=== PATIENT | male | born 1950 | race Caucasian/White ===

== ENCOUNTER 2016-02-15 00:28 | Inpatient (IN) | payer OTHER, MEDICAID ==
[~2016-02-15] VITALS: Ht 180.3 cm; Wt 82.8 kg
[2016-02-15] VITALS (36 sets, daily range): BP systolic 120–249; BP diastolic 57–130; PULSE 45–107; RESP 12–25; TEMP 95.9–99.9; O2SAT 98–100
[2016-02-15] MEDS ORDERED: SODIUM CHLOR 0.9% 1000 ML INJ 1,000 ML IV SCH (00:43)
[2016-02-15] MEDS ORDERED: SODIUM CHLORIDE 0.9% FLUSH 5 ML FLUSH IVF PRN ×3 (00:45→04:00)
[2016-02-15] MEDS ORDERED: PROMETHAZINE INJ 25 MG/ML VIAL IM ONE (00:45)
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
[2016-02-15 02:18] LABS: AUTOMATED NEUTROPHIL # 10.7 TH/MM3 (1.8-7.7); BASOPHIL % 0.2 % (0.0-2.0); EOSINOPHIL % 0.3 % (0.0-4.0); HEMATOCRIT 45.7 % (39.0-51.0); HEMO FLAGS DIFF FINAL; LYMPH % 24.5 % (9.0-44.0); LYMPHOCYTE # 3.8 TH/MM3 (1.0-4.8); MEAN CELL VOLUME 94.2 FL (80.0-100.0); MEAN CORPUSCULAR HEMOGLOBIN 32.4 PG (27.0-34.0); MEAN CORPUSCULAR HGB CONC 34.4 % (32.0-36.0); MONO % 6.1 % (0.0-8.0); NEUT % 68.9 % (16.0-70.0); PLATELET COUNT 361 TH/MM3 (150-450); RED BLOOD COUNT 4.85 MIL/MM3 (4.50-5.90); RED CELL DISTRIBUTION WIDTH 13.4 % (11.6-17.2); WHITE BLOOD COUNT 15.4 TH/MM3 (4.0-11.0)
[2016-02-15] MEDS ORDERED: ROCURONIUM INJ 100 MG/10 ML VIAL ONE (02:22)
[2016-02-15 02:24] LABS: APTT (PATIENT) 26.6 SEC (22.6-28.8)
[2016-02-15] MEDS ORDERED: PROPOFOL 1000 MG/100 ML INJ 100 ML ONE (02:25)
[2016-02-15] MEDS ORDERED: MANNITOL 12.5 GM/50 ML VIAL IV ONE (02:30)
[2016-02-15] MEDS ORDERED: ROCURONIUM INJ 50 MG/5 ML VIAL IV ONE (02:30)
[2016-02-15] MEDS ORDERED: ETOMIDATE 20 MG/10 ML VIAL IV PUSH ONE (02:30)
[2016-02-15 02:36] LABS: ALKALINE PHOSPHATASE 90 U/L (45-117); TOTAL BILIRUBIN ADULT 0.4 MG/DL (0.2-1.0)
[2016-02-15 02:45] LABS: CREATINE KINASE 85 U/L (39-308)
[2016-02-15] MEDS ORDERED: PROPOFOL 1000 MG/100 ML INJ 100 ML IV SCH (02:45)
[2016-02-15 02:49] LABS: ALT (GPT) 23 U/L (12-78); ANION GAP 14 MEQ/L (5-15); AST (GOT) 26 U/L (15-37); BICARBONATE 20.5 MEQ/L (21.0-32.0); BLOOD UREA NITROGEN 8 MG/DL (7-18); CHLORIDE 105 MEQ/L (98-107); GLOMERULAR FILTRATION RATE 72 ML/MIN (>89); MAGNESIUM 1.9 MG/DL (1.5-2.5); POTASSIUM 3.5 MEQ/L (3.5-5.1); SODIUM (NA) 139 MEQ/L (136-145)
[2016-02-15] MEDS ORDERED: HYDROmorphone HCL PF 1 MG/ML VIAL IV PUSH ONE (03:00)
[2016-02-15 03:06] LABS: BLOOD GAS BASE EXCESS -7.2 mmol/L (-2-2); BLOOD GAS CARBOXYHEMOGLOBIN 1.3 % (0-4); BLOOD GAS HCO3 18 mmol/L (22-26); BLOOD GAS O2 HGB SATURATION 96 % (90-100); BLOOD GAS OXYGEN CONTENT 23.4 Vol % (12.0-20.0); BLOOD GAS PCO2 35 mmHg (38-42); BLOOD GAS PO2 251 mmHG (61-120); CRITICAL VALUE NO; DRAW SITE LT BRACHIAL; FIO2 60 %; NUMBER OF ARTERIAL PUNCTURES 1; OXYGEN DEVICE VENTILATOR; TEMP CORR TO 98.6; VENT SETTINGS AC600/16/PEEP5
[2016-02-15 03:07] LABS: STAT YES
[2016-02-15 03:22] LABS: AMPHETAMINE, URINE NEG (NEG); BARBITURATES, URINE NEG (NEG); COCAINE, URINE NEG (NEG)
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
[2016-02-15] MEDS ORDERED: CLEVIDIPINE INJ 50 ML IV SCH (03:45)
[2016-02-15] MEDS ORDERED: hydrALAZINE HCL 20 MG/ML VIAL ONE (03:56)
[2016-02-15] MEDS: RESP: ALBUTEROL 2.5 MG/IPRATROPIUM 0.5 MG NEB (SCH) INH ×6 (04:00→23:54)
[2016-02-15] MEDS ORDERED: MISCELLANEOUS NURSING INFORMATION XX SCH (04:00)
[2016-02-15] MEDS ORDERED: CHLORHEXIDINE GLUCONATE 2 % 1 PACK (2 CLOTHS) TOP PRN (04:00)
[2016-02-15] MEDS ORDERED: hydrALAZINE HCL 20 MG/ML VIAL IV PUSH ONE (04:00)
[2016-02-15] MEDS ORDERED: METOPROLOL TARTRATE 5 MG/5 ML VIAL IV PUSH PRN (04:15)
[2016-02-15] MEDS: SODIUM CHLOR 0.9% 1000 ML INJ 1,000 ML IV SCH ×4 (04:35→17:07)
[2016-02-15] MEDS: PROPOFOL 1000 MG/100 ML INJ 100 ML IV SCH ×3 (06:00→17:12)
[2016-02-15] MEDS: fentaNYL DRIP 250 ML IV SCH ×2 (06:00→15:44)
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
[2016-02-15] MEDS: MANNITOL 12.5 GM/50 ML VIAL IV SCH ×3 (07:00→18:45)
[2016-02-15] MEDS: niCARdipine INJ 25 MG in SODIUM CHLOR 0.9% 250 ML INJ 250 ML IV SCH ×2 (07:25→12:15)
[2016-02-15] MEDS: SODIUM CHLORIDE 0.9% FLUSH 5 ML FLUSH IVF SCH (07:26)
[2016-02-15] MEDS: PANTOPRAZOLE SODIUM 40 MG VIAL IV SCH (07:26)
[2016-02-15] MEDS: CHLORHEXIDINE 0.12% (ORAL KIT) 15 ML CUP MT SCH ×2 (07:26→20:10)
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
[2016-02-15] MEDS ORDERED: VECURONIUM BROMIDE 20 MG VIAL IV PUSH ONE (10:45)
[2016-02-15] MEDS: MIDAZOLAM 100 MG/ML INJ 100 ML IV SCH ×2 (12:12→17:07)
[2016-02-15] MEDS ORDERED: VECURONIUM BROMIDE 10 MG VIAL ONE (13:07)
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
[2016-02-15] MEDS ORDERED: ceFAZolin 2 GM PREMIX 50 ML IV ONE (13:45)
[2016-02-15] MEDS ORDERED: VANCOMYCIN INJ 1,000 MG in SODIUM CHLOR 0.9% 250 ML INJ 250 ML IV ONE (13:45)
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
[2016-02-15 14:46] LABS: GROSS BLOOD TUBE #1 4+ (0); SUPERNATE COLOR TUBE #1 CLEAR (CLEAR); VOLUME TUBE # 1 3.5 ML; WBC TUBE #1 231 /MM3 (0-10)
--- NOTE | 2016-02-15 14:48 | RADRPT ---
EXAM DATE/TIME: 02/15/2016 14:23 [facility] COMPARISON: CHEST SINGLE AP, February 15, 2016, 4:27. INDICATIONS : Central line placement. MEDICAL HISTORY : None. SURGICAL HISTORY : None. ENCOUNTER: Subsequent ACUITY: 1 day PAIN SCORE: Non-responsive. LOCATION: Bilateral chest FINDINGS: A left sided central line has been placed. The central line appears to be in good position. There is no pneumothorax. The ET tube and NG tube remain in place. The lung gaxiola are stable. CONCLUSION: Left central line in place. No pneumothorax. Alli Jj MD on February 15, 2016 at 14:44 Board Certified Radiologist. This report was verified electronically.
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
[2016-02-15 16:42] LABS: CSF LYMPHOCYTES 19 %; CSF MONOCYTES 3 %; CSF NEUTROPHILS 78 %
[2016-02-15 17:04] LABS: BLOOD GAS BASE EXCESS -3.2 mmol/L (-2-2); BLOOD GAS HCO3 21 mmol/L (22-26); BLOOD GAS O2 HGB SATURATION 97 % (90-100); BLOOD GAS OXYGEN CONTENT 19.6 Vol % (12.0-20.0); BLOOD GAS PCO2 39 mmHg (38-42); BLOOD GAS PO2 142 mmHg (61-120); BLOOD GAS TOTAL HGB 14.2 G/DL (12.0-16.0); CRITICAL VALUE NO; OXYGEN DEVICE VENTILATOR; TEMP CORR TO 98.6
[2016-02-15 17:05] LABS: DRAW SITE ART LINE; FIO2 40 %; STAT NO; VENT SETTINGS 550/16/5 PEEP
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
[2016-02-15] MEDS ORDERED: CHLORHEXIDINE GLUCONATE 4% SOLN 120 ML BTL TOP SCH (21:00)
[2016-02-16] VITALS (15 sets, daily range): BP systolic 119–148; BP diastolic 57–71; PULSE 83–92; RESP 18; TEMP 98.2–100.2; O2SAT 96–100
[2016-02-16] MEDS: MANNITOL 12.5 GM/50 ML VIAL IV SCH ×5 (00:16→23:52)
[2016-02-16] MEDS: PROPOFOL 1000 MG/100 ML INJ 100 ML IV SCH ×4 (00:37→16:54)
[2016-02-16] MEDS: fentaNYL DRIP 250 ML IV SCH ×2 (00:51→16:54)
[2016-02-16] MEDS: RESP: ALBUTEROL 2.5 MG/IPRATROPIUM 0.5 MG NEB (SCH) INH ×5 (03:53→20:24)
[2016-02-16] MEDS: CHLORHEXIDINE GLUCONATE 2 % 1 PACK (2 CLOTHS) TOP SCH (04:00)
[2016-02-16 04:16] LABS: AUTOMATED NEUTROPHIL # 7.6 TH/MM3 (1.8-7.7); BASOPHIL % 0.2 % (0.0-2.0); HEMATOCRIT 37.8 % (39.0-51.0); HEMO FLAGS DIFF FINAL; LYMPH % 11.5 % (9.0-44.0); LYMPHOCYTE # 1.2 TH/MM3 (1.0-4.8); MEAN CORPUSCULAR HEMOGLOBIN 31.9 PG (27.0-34.0); MEAN CORPUSCULAR HGB CONC 33.6 % (32.0-36.0); MONO % 15.5 % (0.0-8.0); NEUT % 72.8 % (16.0-70.0); PLATELET COUNT 268 TH/MM3 (150-450); RED BLOOD COUNT 3.98 MIL/MM3 (4.50-5.90); RED CELL DISTRIBUTION WIDTH 13.7 % (11.6-17.2); WHITE BLOOD COUNT 10.4 TH/MM3 (4.0-11.0)
[2016-02-16] MEDS ORDERED: IOHEXOL 350 MG/ML 10 ML VIAL (for RAD DIAG) IV ONE (04:31)
[2016-02-16 04:37] LABS: ALKALINE PHOSPHATASE 82 U/L (45-117); ALT (GPT) 16 U/L (12-78); ANION GAP 9 MEQ/L (5-15); AST (GOT) 14 U/L (15-37); BLOOD UREA NITROGEN 14 MG/DL (7-18); CHLORIDE 106 MEQ/L (98-107); GLOMERULAR FILTRATION RATE 86 ML/MIN (>89); MAGNESIUM 1.8 MG/DL (1.5-2.5); POTASSIUM 4.1 MEQ/L (3.5-5.1); SODIUM (NA) 139 MEQ/L (136-145); TOTAL BILIRUBIN ADULT 0.7 MG/DL (0.2-1.0)
--- NOTE | 2016-02-16 05:21 | RADRPT ---
EXAM DATE/TIME: 02/16/2016 04:31 [facility] COMPARISON: CT BRAIN W/O CONTRAST, February 15, 2016, 9:35. INDICATIONS : Evaluate status of bleed. RADIATION DOSE: 36.40 CTDIvol (mGy) MEDICAL HISTORY : None SURGICAL HISTORY : None. ENCOUNTER: Initial ACUITY: 1 day PAIN SCALE: 0/10 LOCATION: cranial TECHNIQUE: Multiple contiguous axial images were obtained of the head. Using automated exposure control and adj ustment of the mA and/or kV according to patient size, radiation dose was kept as low as reasonably a chievable to obtain optimal diagnostic quality images. FINDINGS: There is stable areas of hemorrhage. There is a 3.5 x 3.4 cm area of parenchymal hemorrhage in the ri ght cerebellar hemisphere unchanged. There is extensive extra-axial hemorrhage in the left frontal an d left temporal regions unchanged. There is significant subarachnoid hemorrhage throughout the left side unchanged. Right frontal ventriculostomy catheter placed with its tip in the left anterior horn. No evidenc e of hydrocephalus. Persistent hemorrhage in the right sphenoid sinus. Stable right-sided occipital fracture without displacement. Tiny amount of pneumocephalus presen t. CONCLUSION: Stable appearance of the head CT with extensive intra-axial and extra-axial hemorrhage similar amount and distribution to the exam. Mukesh Samano MD on February 16, 2016 at 5:14 Board Certified Radiologist. This report was verified electronically.
[2016-02-16] MEDS: MIDAZOLAM 100 MG/ML INJ 100 ML IV SCH ×2 (05:39→16:54)
[2016-02-16] MEDS: SODIUM CHLOR 0.9% 1000 ML INJ 1,000 ML IV SCH ×2 (06:38→08:57)
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
[2016-02-16] MEDS ORDERED: LIDOCAINE 1%/EPINEPHrine 1:100,000 SOLN 30 ML VIAL ONE (07:16)
[2016-02-16] MEDS ORDERED: levETIRAcetam 500MG PREMIX INJ 100 ML IV ONE (07:17)
[2016-02-16] MEDS ORDERED: GELFOAM SIZE 100 ONE ×2 (07:17→11:08)
[2016-02-16] MEDS ORDERED: THROMBIN (TOPICAL) 5,000 UNIT VIAL ONE ×2 (07:17→09:49)
[2016-02-16] MEDS ORDERED: FUROSEMIDE 40 MG/4 ML VIAL ONE (07:17)
[2016-02-16] MEDS ORDERED: GENTAMICIN SULFATE 80 MG/2 ML VIAL ONE (07:18)
[2016-02-16] MEDS ORDERED: SODIUM CHLOR 0.9% 250 ML INJ 250 ML ONE (07:18)
[2016-02-16] MEDS ORDERED: BACITRACIN TOP OINT 15 GM TUBE ONE (07:18)
[2016-02-16] MEDS: ceFAZolin 2 GM PREMIX 50 ML IV SCH ×4 (07:40→23:53)
[2016-02-16] MEDS: PANTOPRAZOLE SODIUM 40 MG VIAL IV SCH (07:40)
[2016-02-16] MEDS ORDERED: VANCOMYCIN HCL 1000 MG VIAL ONE (07:40)
[2016-02-16] MEDS: CHLORHEXIDINE 0.12% (ORAL KIT) 15 ML CUP MT SCH ×2 (07:41→21:06)
[2016-02-16] MEDS: VANCOMYCIN HCL 1000 MG ON-CALL/NS 250 ML IV SCH ×4 (07:41→08:42)
--- NOTE | 2016-02-16 08:01 | EKG ---
Date Performed: 02/15/2016 Time Performed: 03:13:06 PTAGE: 65 years EKG: Sinus rhythm Anterior infarct - age undetermined Lateral ST changes are nonspecific Abnormal ECG NO PREVIOUS TRACING DOCTOR: Gail Pelayo Interpretating Date/Time 02/16/2016 07:58:25
[2016-02-16] MEDS: SODIUM CHLORIDE 0.9% FLUSH 5 ML FLUSH IVF SCH ×2 (08:57→21:00)
[2016-02-16 09:28] LABS: BLOOD GAS BASE EXCESS -1.6 mmol/L (-2-2); BLOOD GAS CARBOXYHEMOGLOBIN 1.3 % (0-4); BLOOD GAS HCO3 22 mmol/L (22-26); BLOOD GAS O2 HGB SATURATION 97 % (90-100); BLOOD GAS OXYGEN CONTENT 19.3 Vol % (12.0-20.0); BLOOD GAS PCO2 31 mmHg (38-42); BLOOD GAS PO2 179 mmHg (61-120); BLOOD GAS TOTAL HGB 13.9 G/DL (12.0-16.0); CRITICAL VALUE NO; DRAW SITE ART LINE; FIO2 50 %; OXYGEN DEVICE VENTILATOR; STAT YES; TEMP CORR TO 98.6; ULNAR PULSE PRESENT; VENT SETTINGS OR
--- NOTE | 2016-02-16 10:16 | RADRPT ---
EXAM DATE/TIME: 02/16/2016 04:31 [facility] COMPARISON: CT BRAIN W/O CONTRAST, February 16, 2016, 4:31. INDICATIONS : Known bleed, evaluate for anyerusm IV CONTRAST: 71 cc Omnipaque 350 (iohexol) IV RADIATION DOSE: 60.24 CTDIvol (mGy) MEDICAL HISTORY : None SURGICAL HISTORY : None. ENCOUNTER: Initial ACUITY: 1 day PAIN SCALE: 0/10 LOCATION: cranial TECHNIQUE: Volumetric scanning was performed using a multi-row detector CT scanner. The data was post processed with a variety of visualization algorithms including full volume maximum intensity projection, multi -planar sliding thin slab reformation, curved planar reformation, and surface rendering techniques. Using automated exposure control and adjustment of the mA and/or kV according to patient size, radiat ion dose was kept as low as reasonably achievable to obtain optimal diagnostic quality images. FINDINGS: Patient has a large right cerebellar hemorrhage. There is excellent visualization of vertebrobasilar arteries. Other than mass effect there is no sara dence for aneurysm or major branch vessel occlusion. Supratentorial vessels appear somewhat small without occlusion, aneurysm or vascular displacement. There is better visualization of the vessels in the right hemisphere than the left in the supratentor ial brain. Etiology of this finding is not apparent. CONCLUSION: I do not see an etiology for the patient's cerebellar hemorrhage on the right. Small supratentorial vessels in a 65-year-old. Etiology of this finding is not apparent. Trace subdural blood and subarachnoid blood persist over both convexities. Earl Gaitan MD FACR on February 16, 2016 at 8:59 Board Certified Radiologist. This report was verified electronically.
[2016-02-16 11:30] LABS: BLOOD GAS BASE EXCESS -1.5 mmol/L (-2-2); BLOOD GAS CARBOXYHEMOGLOBIN 1.5 % (0-4); BLOOD GAS HCO3 22 mmol/L (22-26); BLOOD GAS METHEMOGLOBIN 1.1 % (0-2); BLOOD GAS O2 HGB SATURATION 97 % (90-100); BLOOD GAS PCO2 31 mmHg (38-42); BLOOD GAS PO2 188 mmHg (61-120); BLOOD GAS TOTAL HGB 11.4 G/DL (12.0-16.0); TEMP CORR TO 98.6
[2016-02-16 11:31] LABS: CRITICAL VALUE NO; DRAW SITE ART LINE; FIO2 50 %; OXYGEN DEVICE VENTILATOR; STAT YES
[2016-02-16] MEDS ORDERED: MORPHINE SULFATE 4 MG/ML INJ IV PUSH PRN (11:45)
[2016-02-16] MEDS ORDERED: MAGNESIUM SULFATE INJ 4 GM in SODIUM CHLORIDE 0.9% INJ 100 ML IV PRN (11:45)
[2016-02-16] MEDS ORDERED: ACETAMINOPHEN/HYDROcodone 325 MG/10 MG TAB PO PRN (11:45)
[2016-02-16] MEDS ORDERED: ONDANSETRON HCL 4 MG/2 ML VIAL IV PRN (11:45)
[2016-02-16] MEDS ORDERED: CALCIUM GLUCONATE 10% 1 GM/10 ML VIAL IV PRN (11:45)
[2016-02-16] MEDS ORDERED: NORMOSOL R INJ 1,000 ML IV ONE (12:00)
[2016-02-16] MEDS ORDERED: PHENYLEPH/NS 1000 MCG/10 ML SYR IV ONE (12:00)
[2016-02-16] MEDS ORDERED: LACTATED RINGER'S 1000 ML INJ 2,000 ML IV ONE (12:00)
[2016-02-16] MEDS ORDERED: PROPOFOL 200 MG/20 ML AMP IV ONE (12:00)
[2016-02-16] MEDS: NS + KCL 20 MEQ INJ 1,000 ML IV SCH ×2 (12:40→21:07)
[2016-02-16] MEDS ORDERED: DO NOT ADM ANY ANTICOAGULANT DRUGS XX PRN (12:45)
[2016-02-16] MEDS: levETIRAcetam 500MG PREMIX INJ 100 ML IV SCH ×2 (12:45→23:52)
[2016-02-16] MEDS ORDERED: fentaNYL CITRATE 250 MCG/5 ML AMP ONE (13:01)
--- NOTE | 2016-02-16 16:31 | OTSOAPIP ---
TIME SESSION COMPLETED: PM TREATMENT TIME: 0 MINS. CHART REVIEWED. RECEIVED ORDERS FOR OT CONSULT BY DR. KEEN. PT HAVING CRANIOTOMY TODAY. WILL FOLLOW NEXT DAY. Therapist: DEY SHRESTHA OT/L Signature on file
--- NOTE | 2016-02-16 16:47 | PD.OP ---
Operative Report Date of Surgery: February 16, 2016 Preoperative Diagnosis: Cerebellar hemorrhage Postoperative Diagnosis: Cerebellar hemorrhage Procedure: Right suboccipital craniectomy evacuation of hematoma Anesthesia: Surgeon: Gurmeet Ledesma Rn Clinical Review(s): Ely Mckeon Operation and Findings: INDICATIONS FOR THE PROCEDURE The patient is a 65 year old female who was brought to [facility] with a large cerebellar hemorrhagic mass causing mass effect in the posterior fossa. A suboccipital decompressive craniectomy with surgical evacuation and duroplasty were indicated as medically necessary. DETAILS OF THE SURGICAL PROCEDURE The patient was brought into the operating room. The patient was then endotracheally intubated. A Cuenca catheter, bilateral AMARJIT hose and sequential compression devices were placed and kept throughout the procedure.. The central and arterial and other lines were established and kept thorough the procedure. The patient received Decadron, prophylactic antibiotics during the preoperative preparation. The eyes were tapped shut after ointment was applied by the anesthesiologist to prevent corneal abrasion. The patient was then positioned prone on a 30/80 table over gel rolls with the shoulders at the edge of the surgical table in a neutral position, and the head held in rigid fixation using the three point Brooke hogshead hooper, secured to the operating room table. The patient's head was maintained above the level of the right atrium to facilitate venous return. The head was flexed to facilitate access to the suboccipital region. All pressure points were carefully padded with egg crate mattress. A Wanda hugger was placed over the exposed lower body to maintain control of the core body temperature. The electrophysiological team placed the needles and electrodes in their proper location and baseline SSEP's and motor evoked potentials were registered. The rigid reference body was attached to the hogshead hooper and intraoperative registration was performed with soft touch orthopedic radiologic technologist. The suboccipital area was shaved, prepped, draped in the usual sterile fashion. A right paramedial incision was outlined on the skin and infiltrated with 1% lidocaine with epinephrine 1:100,000 dilution. The skin incision was made with a #10 blade. Tereza clips were applied to the scalp and the dissection was carried out through the avascular midline down to the suboccipital bone. Self retaining cerebellar retractors were placed on the incision and the posterior arch of C1 was carefully exposed. Using the TPS with the AM-3 drill bit, the bone carefully thinned to a paper like layer which was carefully elevated with a dissector with extreme care to preserve and not injure the vertebral artery. At this point in the procedure, the operating microscope was draped in the usual sterile fashion and brought to the field. The rest of the procedure was performed using microdissection technique with exception of the final closure. Under the operative microscope, dura was carefully opened with a 15 blade and Metzenbaun sissors and tacked to the surrounding fascia using 4-0 Nurolon sutures. Using microbipolar, microscissors, micro retractors, microforceps, and microsurgical dissection technique, the approach to the hematoma was caaired out , . The hematoma was readily identified and a specimen was sent for hystoogical annalysis. Using microsurgical dissection technique with the micro dissection bipolar, and microscissors, resection of the hematoma was carried out. A specimen was sent to the lab for permanent histological analysis. A gross total evacuation was achieved. Careful inspection did not revealed aobvious residual hematoma. Hemostasis was performed in the cavity of the tumor using a bipolar forceps as well as Surgicel. Excellent hemostasis was achieved and the cavity was filled with thrombin. A duramatter graft was brought to the field and carefully shapped to fir the dural region. The dural patch was then brought to the field and the dura was carefully reconstructed in a watertight fashion using 6-0 Prolene suture. The dural closure was then reinforced using Duragen and Tisseel fibrin glue. The suboccipital incision was then closed in multiple layers using 0 Vicryl suture and 3-0 Vicryl sutures were used to close the galea. The skin was closed with running 3-0 nylon. At the end of the procedure, the sponge, needle, and instrument counts were all correct. Estimated blood loss was less than 150 cc, no blood transfusion was given, no intraoperative complications occurred. The patient received preoperative prophylactic antibiotics. The patient was then transferred to the recovery room in a stable condition. Gurmeet Ledesma MD February 16, 2016 16:47
[2016-02-16] MEDS: DOCUSATE SODIUM 100 MG CAP PO SCH (21:00)
[2016-02-17] VITALS (21 sets, daily range): BP systolic 129–161; BP diastolic 52–86; PULSE 76–118; RESP 18; TEMP 98.9–100.9; O2SAT 93–100
[2016-02-17] MEDS: PROPOFOL 1000 MG/100 ML INJ 100 ML IV SCH ×3 (00:21→22:46)
[2016-02-17] MEDS: RESP: ALBUTEROL 2.5 MG/IPRATROPIUM 0.5 MG NEB (SCH) INH ×7 (00:23→23:13)
[2016-02-17] MEDS: CHLORHEXIDINE GLUCONATE 2 % 1 PACK (2 CLOTHS) TOP SCH (04:00)
[2016-02-17 04:50] LABS: AUTOMATED NEUTROPHIL # 7.5 TH/MM3 (1.8-7.7); BASOPHIL # 0.1 TH/MM3 (0-0.2); BASOPHIL % 1.2 % (0.0-2.0); HEMATOCRIT 33.1 % (39.0-51.0); HEMO FLAGS DIFF FINAL; LYMPH % 14.8 % (9.0-44.0); LYMPHOCYTE # 1.5 TH/MM3 (1.0-4.8); MEAN CELL VOLUME 95.8 FL (80.0-100.0); MEAN CORPUSCULAR HEMOGLOBIN 31.8 PG (27.0-34.0); MEAN CORPUSCULAR HGB CONC 33.1 % (32.0-36.0); MONO % 10.8 % (0.0-8.0); NEUT % 73.2 % (16.0-70.0); PLATELET COUNT 219 TH/MM3 (150-450); RED BLOOD COUNT 3.46 MIL/MM3 (4.50-5.90); RED CELL DISTRIBUTION WIDTH 13.8 % (11.6-17.2); WHITE BLOOD COUNT 10.2 TH/MM3 (4.0-11.0)
[2016-02-17] MEDS: fentaNYL DRIP 250 ML IV SCH ×2 (05:03→18:56)
[2016-02-17 05:14] LABS: BICARBONATE 25.9 MEQ/L (21.0-32.0); POTASSIUM 3.8 MEQ/L (3.5-5.1)
[2016-02-17] MEDS: MANNITOL 12.5 GM/50 ML VIAL IV SCH ×4 (06:36→23:48)
[2016-02-17] MEDS ORDERED: NOREPINEPHRINE 4 MG/4 ML AMP ONE ×2 (07:27→14:33)
[2016-02-17] MEDS: ceFAZolin 2 GM PREMIX 50 ML IV SCH (07:31)
[2016-02-17] MEDS: PANTOPRAZOLE SODIUM 40 MG VIAL IV SCH (07:31)
[2016-02-17] MEDS: SODIUM CHLORIDE 0.9% FLUSH 5 ML FLUSH IVF SCH ×3 (07:31→21:00)
[2016-02-17] MEDS: CHLORHEXIDINE 0.12% (ORAL KIT) 15 ML CUP MT SCH ×2 (07:32→20:40)
[2016-02-17] MEDS: NS + KCL 20 MEQ INJ 1,000 ML IV SCH ×3 (07:32→20:23)
[2016-02-17] MEDS: SODIUM CHLOR 0.9% 1000 ML INJ 1,000 ML IV SCH ×2 (07:33→07:34)
[2016-02-17] MEDS: DOCUSATE SODIUM 100 MG CAP PO SCH ×2 (07:35→22:46)
[2016-02-17] MEDS ORDERED: TERBUTALINE INJ 1 MG/ML AMP SQ PRN (07:45)
[2016-02-17] MEDS ORDERED: NOREPINEPHRINE-DEXTROSE DRIP 250 ML IV SCH (07:45)
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
[2016-02-17] MEDS ORDERED: SODIUM CHLOR 0.9% 1000 ML INJ 1,000 ML IV ONE (08:15)
[2016-02-17] MEDS ORDERED: PANTOPRAZOLE SOD 40 MG DELAYED RELEASE TAB PO SCH (09:00)
[2016-02-17] MEDS ORDERED: PANTOPRAZOLE SODIUM 40 MG VIAL IVP SCH (09:00)
[2016-02-17] MEDS: chlordiazePOXIDE 25 MG CAP PO SCH ×3 (09:28→22:46)
[2016-02-17] MEDS: MIDAZOLAM 100 MG/ML INJ 100 ML IV SCH ×2 (09:59→20:23)
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
[2016-02-17] MEDS: levETIRAcetam 500MG PREMIX INJ 100 ML IV SCH ×2 (12:02→22:47)
[2016-02-18] VITALS (19 sets, daily range): BP systolic 137–162; BP diastolic 53–86; PULSE 59–116; RESP 15–22; TEMP 97.5–100.9; O2SAT 93–100
[2016-02-18] MEDS: NOREPINEPHRINE INJ 4 MG in SODIUM CHLOR 0.9% 250 ML INJ 250 ML IV SCH ×3 (00:40→18:01)
[2016-02-18] MEDS: CHLORHEXIDINE GLUCONATE 2 % 1 PACK (2 CLOTHS) TOP SCH (04:00)
[2016-02-18] MEDS: RESP: ALBUTEROL 2.5 MG/IPRATROPIUM 0.5 MG NEB (SCH) INH ×5 (04:19→23:26)
[2016-02-18] MEDS: PROPOFOL 1000 MG/100 ML INJ 100 ML IV SCH ×6 (04:24→23:14)
[2016-02-18] MEDS: fentaNYL DRIP 250 ML IV SCH ×2 (04:24→17:29)
[2016-02-18 05:47] LABS: BICARBONATE 24.1 MEQ/L (21.0-32.0); MAGNESIUM 1.5 MG/DL (1.5-2.5); POTASSIUM 3.8 MEQ/L (3.5-5.1)
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
[2016-02-18] MEDS: MANNITOL 12.5 GM/50 ML VIAL IV SCH ×3 (06:44→18:20)
[2016-02-18] MEDS ORDERED: FUROSEMIDE 40 MG/4 ML VIAL IV PUSH ONE (06:45)
[2016-02-18] MEDS: 3% SALINE INJ 500 ML IV SCH (07:23)
[2016-02-18] MEDS: MAGNESIUM SULFATE 1 GM PREMIX 100 ML IV SCH ×2 (07:23→08:00)
[2016-02-18] MEDS: SODIUM CHLORIDE 0.9% FLUSH 5 ML FLUSH IVF SCH ×3 (07:23→21:00)
[2016-02-18] MEDS: PANTOPRAZOLE SODIUM 40 MG VIAL IV SCH (07:24)
[2016-02-18] MEDS: LACTULOSE SYRUP 20 GM/30 ML CUP PO SCH (07:25)
[2016-02-18] MEDS: chlordiazePOXIDE 25 MG CAP PO SCH ×3 (07:26→23:13)
[2016-02-18] MEDS: CHLORHEXIDINE 0.12% (ORAL KIT) 15 ML CUP MT SCH ×2 (07:27→23:13)
[2016-02-18] MEDS: METOCLOPRAMIDE HCL 10 MG/2 ML VIAL IV PUSH SCH ×3 (07:27→21:25)
[2016-02-18] MEDS: DOCUSATE SODIUM 100 MG CAP PO SCH ×2 (07:27→23:14)
[2016-02-18] MEDS ORDERED: METOCLOPRAMIDE HCL 10 MG/2 ML VIAL IM SCH (09:00)
[2016-02-18] MEDS: ACETAMINOPHEN 325 MG TAB PO PRN (09:34)
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
[2016-02-18 10:06] LABS: BLOOD GAS BASE EXCESS -0.3 mmol/L (-2-2); BLOOD GAS CARBOXYHEMOGLOBIN 1.3 % (0-4); BLOOD GAS HCO3 24 mmol/L (22-26); BLOOD GAS METHEMOGLOBIN 1.3 % (0-2); BLOOD GAS O2 HGB SATURATION 91 % (90-100); BLOOD GAS OXYGEN CONTENT 12.8 Vol % (12.0-20.0); BLOOD GAS PCO2 39 mmHg (38-42); BLOOD GAS PO2 65 mmHg (61-120); CRITICAL VALUE NO; OXYGEN DEVICE VENTILATOR; TEMP CORR TO 98.6
[2016-02-18 10:07] LABS: DRAW SITE ART LINE; FIO2 40 %; STAT NO; ULNAR PULSE PRESENT; VENT SETTINGS AC/18/550/PEEP5
[2016-02-18] MEDS: levETIRAcetam 500MG PREMIX INJ 100 ML IV SCH ×2 (10:12→23:13)
[2016-02-18] MEDS: MIDAZOLAM 100 MG/ML INJ 100 ML IV SCH ×3 (11:43→21:27)
[2016-02-18] MEDS ORDERED: SODIUM CHLORIDE 23.4% INJ 240 MEQ in SYRINGE/BAG 1 EA IV ONE (12:00)
[2016-02-18 17:51] LABS: BICARBONATE 25.2 MEQ/L (21.0-32.0); MAGNESIUM 2.3 MG/DL (1.5-2.5)
[2016-02-18 17:54] LABS: POTASSIUM 2.2 MEQ/L (3.5-5.1)
[2016-02-18] MEDS: POTASSIUM CHLOR 20 MEQ PREMIX 100 ML IV PRN (17:59)
[2016-02-18 18:08] LABS: CALCIUM-PROTEIN CORRECTED 7.7 MG/DL (8.5-10.1)
[2016-02-18] MEDS: MORPHINE SULFATE 4 MG/ML INJ IV PUSH PRN (19:45)
[2016-02-18] MEDS: ACETAMINOPHEN/HYDROcodone 325 MG/10 MG TAB PO PRN (19:45)
[2016-02-18] MEDS ORDERED: POTASSIUM CHLOR 40 MEQ PREMIX 100 ML IV SCH (19:45)
[2016-02-18] MEDS ORDERED: CALCIUM CHLORIDE 10% SOLN 1 GRAM/10 ML SYR IV PUSH ONE (20:00)
[2016-02-18] MEDS: POTASSIUM CHLORIDE INJ 30 MEQ in SODIUM CHLORIDE 0.9% INJ 100 ML IV SCH ×2 (20:06→23:15)
[2016-02-18] MEDS ORDERED: POTASSIUM PHOSPHATE INJ 15 MMOL in SODIUM CHLORIDE 0.9% INJ 150 ML IV ONE (21:00)
[2016-02-18 22:24] LABS: BLOOD GAS BASE EXCESS -2.4 mmol/L (-2-2); BLOOD GAS CARBOXYHEMOGLOBIN 1.3 % (0-4); BLOOD GAS HCO3 21 mmol/L (22-26); BLOOD GAS O2 HGB SATURATION 97 % (90-100); BLOOD GAS PCO2 33 mmHg (38-42); BLOOD GAS PO2 152 mmHg (61-120); BLOOD GAS TOTAL HGB 9.3 G/DL (12.0-16.0); TEMP CORR TO 98.6
[2016-02-18 22:25] LABS: CRITICAL VALUE NO; DRAW SITE ART LINE; FIO2 50 %; OXYGEN DEVICE VENT; STAT NO; VENT SETTINGS AC/20/550/PEEP 5
[2016-02-18 23:13] LABS: BICARBONATE 24.1 MEQ/L (21.0-32.0); MAGNESIUM 2.1 MG/DL (1.5-2.5)
[2016-02-18 23:20] LABS: POTASSIUM 2.2 MEQ/L (3.5-5.1)
[2016-02-19] VITALS (18 sets, daily range): BP systolic 122–145; BP diastolic 55–80; PULSE 66–89; RESP 16–20; TEMP 97.3–99.8; O2SAT 94–100
[2016-02-19] MEDS: MANNITOL 12.5 GM/50 ML VIAL IV SCH ×4 (01:00→19:00)
[2016-02-19] MEDS: fentaNYL DRIP 250 ML IV SCH ×3 (02:14→21:09)
[2016-02-19] MEDS: PROPOFOL 1000 MG/100 ML INJ 100 ML IV SCH ×5 (02:14→21:07)
[2016-02-19] MEDS: 3% SALINE INJ 500 ML IV SCH (02:14)
[2016-02-19] MEDS: RESP: ALBUTEROL 2.5 MG/IPRATROPIUM 0.5 MG NEB (SCH) INH (03:03)
[2016-02-19] MEDS: CHLORHEXIDINE GLUCONATE 2 % 1 PACK (2 CLOTHS) TOP SCH (04:00)
[2016-02-19 05:05] LABS: BICARBONATE 23.2 MEQ/L (21.0-32.0); MAGNESIUM 2.4 MG/DL (1.5-2.5)
[2016-02-19] MEDS ORDERED: POTASSIUM CHLOR 40 MEQ PREMIX 100 ML IV ONE (05:30)
[2016-02-19] MEDS ORDERED: POTASSIUM CL 40 MEQ/30 ML LIQ UDC PO ONE (05:30)
[2016-02-19] MEDS: METOCLOPRAMIDE HCL 10 MG/2 ML VIAL IV PUSH SCH ×3 (05:42→21:02)
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
[2016-02-19] MEDS: MIDAZOLAM 100 MG/ML INJ 100 ML IV SCH ×2 (06:56→21:05)
[2016-02-19] MEDS ORDERED: POTASSIUM PHOSPHATE MONOBASIC 500 MG TAB PEG PRN (07:30)
[2016-02-19] MEDS ORDERED: POTASSIUM CHLOR 20 MEQ PREMIX 100 ML IV PRN ×2 (07:30)
[2016-02-19] MEDS ORDERED: MAGNESIUM OXIDE 400 MG TAB PO PRN (07:30)
[2016-02-19] MEDS ORDERED: POTASSIUM CL 40 MEQ/30 ML LIQ UDC PO/TUBE PRN (07:30)
[2016-02-19] MEDS ORDERED: MAGNESIUM SULFATE INJ 4 GM in SODIUM CHLORIDE 0.9% INJ 92 ML IV PRN (07:30)
[2016-02-19] MEDS ORDERED: SODIUM PHOSPHATE INJ 30 MMOL in SODIUM CHLOR 0.9% 250 ML INJ 240 ML IV PRN (07:30)
[2016-02-19] MEDS ORDERED: POTASSIUM PHOSPHATE MONOBASIC 500 MG TAB PO PRN (07:30)
[2016-02-19] MEDS ORDERED: MAGNESIUM SULFATE INJ 2 GM in SODIUM CHLORIDE 0.9% INJ 96 ML IV PRN (07:30)
[2016-02-19] MEDS ORDERED: POTASSIUM PHOSPHATE INJ 30 MMOL in SODIUM CHLOR 0.9% 250 ML INJ 250 ML IV PRN (07:30)
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
[2016-02-19] MEDS: SODIUM CHLORIDE 0.9% FLUSH 5 ML FLUSH IVF SCH ×4 (07:55→21:09)
[2016-02-19] MEDS: CHLORHEXIDINE 0.12% (ORAL KIT) 15 ML CUP MT SCH ×2 (08:47→20:56)
[2016-02-19] MEDS: LACTULOSE SYRUP 20 GM/30 ML CUP PO SCH (08:47)
[2016-02-19] MEDS: DOCUSATE SODIUM 100 MG CAP PO SCH ×2 (08:48→21:02)
[2016-02-19] MEDS: chlordiazePOXIDE 25 MG CAP PO SCH ×2 (08:48→15:29)
[2016-02-19] MEDS: PANTOPRAZOLE SODIUM 40 MG VIAL IV SCH (08:48)
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
[2016-02-19] MEDS: levETIRAcetam 500MG PREMIX INJ 100 ML IV SCH (10:53)
[2016-02-19] MEDS: NOREPINEPHRINE INJ 4 MG in SODIUM CHLOR 0.9% 250 ML INJ 250 ML IV SCH ×3 (10:55→22:09)
[2016-02-19 11:07] LABS: POTASSIUM 4.2 MEQ/L (3.5-5.1)
[2016-02-19 11:40] LABS: BICARBONATE 23.6 MEQ/L (21.0-32.0)
--- NOTE | 2016-02-19 13:16 | OTSOAPIP ---
TIME SESSION COMPLETED: PM TREATMENT TIME: 0 MINS. CHART REVIEWED. RECEIVED ORDERS FOR OT CONSULT BY DR. KEEN. PT HAVING CRANIOTOMY TODAY. WILL FOLLOW NEXT DAY. Therapist: EDY SHRESTHA OT/L Signature on file
[2016-02-19 16:26] LABS: BLOOD GAS BASE EXCESS -1.7 mmol/L (-2-2); BLOOD GAS CARBOXYHEMOGLOBIN 1.3 % (0-4); BLOOD GAS HCO3 23 mmol/L (22-26); BLOOD GAS METHEMOGLOBIN 1.1 % (0-2); BLOOD GAS O2 HGB SATURATION 96 % (90-100); BLOOD GAS OXYGEN CONTENT 13.2 Vol % (12.0-20.0); BLOOD GAS PCO2 41 mmHg (38-42); BLOOD GAS PO2 109 mmHg (61-120); BLOOD GAS TOTAL HGB 9.6 G/DL (12.0-16.0); TEMP CORR TO 98.6
[2016-02-19 16:27] LABS: CRITICAL VALUE NO; OXYGEN DEVICE VENTILATOR
[2016-02-19 16:28] LABS: DRAW SITE ART LINE; FIO2 50 %; STAT NO; VENT SETTINGS AC14/550/5PEEP
[2016-02-19] MEDS: MORPHINE SULFATE 4 MG/ML INJ IV PUSH PRN (18:32)
[2016-02-19] MEDS ORDERED: NOREPINEPHRINE 4 MG/4 ML AMP ONE (21:51)
[2016-02-19] MEDS ORDERED: SODIUM CHLOR 0.9% 250 ML INJ 250 ML ONE (21:51)
[2016-02-20] VITALS (18 sets, daily range): BP systolic 108–136; BP diastolic 59–74; PULSE 70–96; RESP 19–25; TEMP 98.7–101.1; O2SAT 91–99
[2016-02-20] MEDS: MANNITOL 12.5 GM/50 ML VIAL IV SCH ×4 (01:00→18:55)
[2016-02-20] MEDS: PROPOFOL 1000 MG/100 ML INJ 100 ML IV SCH ×7 (01:01→23:15)
[2016-02-20] MEDS: chlordiazePOXIDE 25 MG CAP PO SCH (01:03)
[2016-02-20] MEDS: levETIRAcetam 500MG PREMIX INJ 100 ML IV SCH ×3 (01:03→23:08)
[2016-02-20] MEDS: ACETAMINOPHEN 325 MG TAB PO PRN (01:03)
--- NOTE | 2016-02-20 02:52 | RADRPT ---
EXAM DATE/TIME: 02/20/2016 02:02 [facility] COMPARISON: CHEST SINGLE AP, February 15, 2016, 14:23. INDICATIONS : Evaluate for pulmonary disease. MEDICAL HISTORY : None. SURGICAL HISTORY : None. ENCOUNTER: Subsequent ACUITY: 4 - 6 days PAIN SCORE: Non-responsive. LOCATION: Bilateral chest FINDINGS: The support devices are in place. There is no evidence of pneumothorax. There is a new prominent infi ltrate in the left mid to left lower lung with a small left-sided effusion. There is mild right lower lung atelectasis. The heart size is stable. The bony structures are stable. CONCLUSION: 1. There is a new prominent infiltrate in the left mid to left lower lung with a small effusion. 2. Mild right lower lung atelectasis. Alli Jj MD on February 20, 2016 at 2:49 Board Certified Radiologist. This report was verified electronically.
[2016-02-20] MEDS: CHLORHEXIDINE GLUCONATE 2 % 1 PACK (2 CLOTHS) TOP SCH (04:00)
[2016-02-20] MEDS: MIDAZOLAM 100 MG/ML INJ 100 ML IV SCH ×3 (04:23→23:15)
[2016-02-20 04:28] LABS: BLOOD GAS CARBOXYHEMOGLOBIN 1.2 % (0-4); BLOOD GAS HCO3 24 mmol/L (22-26); BLOOD GAS METHEMOGLOBIN 1.1 % (0-2); BLOOD GAS O2 HGB SATURATION 92 % (90-100); BLOOD GAS OXYGEN CONTENT 16.3 Vol % (12.0-20.0); BLOOD GAS PCO2 41 mmHg (38-42); BLOOD GAS PO2 72 mmHg (61-120); BLOOD GAS TOTAL HGB 12.5 G/DL (12.0-16.0); TEMP CORR TO 98.6
[2016-02-20 04:29] LABS: CRITICAL VALUE NO; DRAW SITE ART LINE; FIO2 50 %; OXYGEN DEVICE VENTILATOR; STAT NO; VENT SETTINGS A/C14/550/+5PEEP
[2016-02-20] MEDS: METOCLOPRAMIDE HCL 10 MG/2 ML VIAL IV PUSH SCH ×3 (05:58→23:06)
[2016-02-20 06:03] LABS: AUTOMATED NEUTROPHIL # 12.6 TH/MM3 (1.8-7.7); BASOPHIL % 0.2 % (0.0-2.0); EOSINOPHIL # 0.1 TH/MM3 (0-0.4); EOSINOPHIL % 0.8 % (0.0-4.0); HEMATOCRIT 26.5 % (39.0-51.0); LYMPH % 6.8 % (9.0-44.0); MEAN CELL VOLUME 95.2 FL (80.0-100.0); MEAN CORPUSCULAR HEMOGLOBIN 31.5 PG (27.0-34.0); MEAN CORPUSCULAR HGB CONC 33.1 % (32.0-36.0); MONO % 9.7 % (0.0-8.0); NEUT % 82.5 % (16.0-70.0); PLATELET COUNT 290 TH/MM3 (150-450); RED BLOOD COUNT 2.78 MIL/MM3 (4.50-5.90); RED CELL DISTRIBUTION WIDTH 13.7 % (11.6-17.2); WHITE BLOOD COUNT 15.3 TH/MM3 (4.0-11.0)
[2016-02-20 06:36] LABS: HEMO FLAGS AUTO DIFF
[2016-02-20 06:57] LABS: BICARBONATE 26.1 MEQ/L (21.0-32.0)
[2016-02-20 07:19] LABS: POTASSIUM 5.2 MEQ/L (3.5-5.1)
[2016-02-20] MEDS ORDERED: Vancomycin Consult Pharmacy 1 EA XX SCH (08:15)
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
[2016-02-20 08:48] LABS: BANDS 7 % (0-6); BASOPHILS 1 % (0-2); METAMYELOCYTES 1 % (0-1); NEUTROPHIL # MANUAL DIFF 13.5 TH/MM3 (1.8-7.7); PLATELET ESTIMATE SMEAR NORMAL (NORMAL); PLATELET MORPHOLOGY NORMAL (NORMAL); POLYS (SEG NEUTROPHILS) 80 % (16-70); SCAN/DIFF FINAL DIFF MANUAL; WBC DIFF SAMPLE 100
[2016-02-20] MEDS: LACTULOSE SYRUP 20 GM/30 ML CUP PO SCH (09:28)
[2016-02-20] MEDS: PANTOPRAZOLE SODIUM 40 MG VIAL IV SCH (09:29)
[2016-02-20] MEDS: fentaNYL DRIP 250 ML IV SCH ×3 (09:29→23:15)
[2016-02-20] MEDS: POLYETHYLENE GLYCOL 17 GM PKG PO SCH (09:30)
[2016-02-20] MEDS: PIPERACIL-TAZO 3.375 GM PREMIX 50 ML IV SCH ×2 (09:30→16:35)
[2016-02-20] MEDS: DOCUSATE SODIUM 100 MG/10 ML UDC NG SCH ×2 (09:30→21:30)
[2016-02-20] MEDS: SODIUM CHLORIDE 0.9% FLUSH 5 ML FLUSH IVF SCH ×4 (09:30→21:30)
[2016-02-20] MEDS: CHLORHEXIDINE 0.12% (ORAL KIT) 15 ML CUP MT SCH ×2 (09:31→21:29)
[2016-02-20] MEDS: VANCOMYCIN INJ 1,500 MG in SODIUM CHLORID 0.9% 500 ML INJ 500 ML IV SCH ×2 (11:22→23:06)
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
[2016-02-20] MEDS: NOREPINEPHRINE INJ 4 MG in SODIUM CHLOR 0.9% 250 ML INJ 250 ML IV SCH (16:36)
[2016-02-21] VITALS (18 sets, daily range): BP systolic 114–154; BP diastolic 60–85; PULSE 76–101; RESP 21–32; TEMP 99–100.3; O2SAT 94–100
[2016-02-21] MEDS: PIPERACIL-TAZO 3.375 GM PREMIX 50 ML IV SCH ×3 (01:51→18:30)
[2016-02-21] MEDS: MORPHINE SULFATE 4 MG/ML INJ IV PUSH PRN ×2 (03:04→14:03)
[2016-02-21] MEDS: PROPOFOL 1000 MG/100 ML INJ 100 ML IV SCH ×4 (03:08→23:01)
[2016-02-21 03:54] LABS: AUTOMATED NEUTROPHIL # 13.1 TH/MM3 (1.8-7.7); BASOPHIL % 0.2 % (0.0-2.0); EOSINOPHIL # 0.2 TH/MM3 (0-0.4); EOSINOPHIL % 1.1 % (0.0-4.0); HEMATOCRIT 26.4 % (39.0-51.0); LYMPH % 6.2 % (9.0-44.0); MEAN CELL VOLUME 95.8 FL (80.0-100.0); MEAN CORPUSCULAR HEMOGLOBIN 31.2 PG (27.0-34.0); MEAN CORPUSCULAR HGB CONC 32.6 % (32.0-36.0); MONO % 10.2 % (0.0-8.0); NEUT % 82.3 % (16.0-70.0); PLATELET COUNT 311 TH/MM3 (150-450); RED BLOOD COUNT 2.76 MIL/MM3 (4.50-5.90); RED CELL DISTRIBUTION WIDTH 14.3 % (11.6-17.2); WHITE BLOOD COUNT 15.9 TH/MM3 (4.0-11.0)
[2016-02-21] MEDS: CHLORHEXIDINE GLUCONATE 2 % 1 PACK (2 CLOTHS) TOP SCH (04:00)
[2016-02-21 04:09] LABS: BICARBONATE 26.9 MEQ/L (21.0-32.0); POTASSIUM 3.7 MEQ/L (3.5-5.1)
[2016-02-21 04:16] LABS: HEMO FLAGS AUTO DIFF
--- NOTE | 2016-02-21 04:44 | RADRPT ---
EXAM DATE/TIME: 02/21/2016 04:30 [facility] COMPARISON: CHEST SINGLE AP, February 20, 2016, 2:02. INDICATIONS : Shortness of breath. MEDICAL HISTORY : None. SURGICAL HISTORY : None. ENCOUNTER: Subsequent ACUITY: 1 week PAIN SCORE: Non-responsive. LOCATION: Bilateral chest FINDINGS: The support devices remain in place. On today's examination there is now a new diffuse infiltrate in the right lower lung. The previously noted diffuse infiltrate in the left lower lung has improved. No significant pleural effusions. There is prominence of the pulmonary vasculature characteristic for p ulmonary venous congestion. The heart size is stable. No evidence of pneumothorax. CONCLUSION: 1. New diffuse patchy infiltrate throughout the right lower lung. 2. There has been improved aeration of the left mid to left lower lung compared to the prior study wi th improvement of the previously noted infiltrates. 3. Pulmonary venous congestion versus pulmonary edema Alli Jj MD on February 21, 2016 at 4:40 Board Certified Radiologist. This report was verified electronically.
[2016-02-21 04:51] LABS: BANDS 13 % (0-6); EOSINOPHILS 2 % (0-4); METAMYELOCYTES 2 % (0-1); NEUTROPHIL # MANUAL DIFF 14.5 TH/MM3 (1.8-7.7); POLYS (SEG NEUTROPHILS) 75 % (16-70); PROMYELOCYTES 1 % (0-0); WBC DIFF SAMPLE 100
[2016-02-21 04:52] LABS: HYPOCHROMIA 1+ (NORMAL); PLATELET ESTIMATE SMEAR NORMAL (NORMAL); PLATELET MORPHOLOGY NORMAL (NORMAL); SCAN/DIFF FINAL DIFF MANUAL
[2016-02-21] MEDS: METOCLOPRAMIDE HCL 10 MG/2 ML VIAL IV PUSH SCH ×3 (06:03→20:08)
[2016-02-21] MEDS: BISACODYL 10 MG SUPP PR PRN (06:05)
[2016-02-21] MEDS: RESP: ALBUTEROL 2.5 MG/IPRATROPIUM 0.5 MG NEB (PRN) INH (07:56)
[2016-02-21] MEDS: POLYETHYLENE GLYCOL 17 GM PKG PO SCH (08:49)
[2016-02-21] MEDS: LACTULOSE SYRUP 20 GM/30 ML CUP PO SCH (08:49)
[2016-02-21] MEDS: DOCUSATE SODIUM 100 MG/10 ML UDC NG SCH ×2 (08:49→20:08)
[2016-02-21] MEDS: PANTOPRAZOLE SODIUM 40 MG VIAL IV SCH (08:49)
[2016-02-21] MEDS: SODIUM CHLORIDE 0.9% FLUSH 5 ML FLUSH IVF SCH ×3 (08:50→20:08)
[2016-02-21] MEDS: CHLORHEXIDINE 0.12% (ORAL KIT) 15 ML CUP MT SCH ×2 (08:50→20:08)
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
[2016-02-21] MEDS: VANCOMYCIN INJ 1,500 MG in SODIUM CHLORID 0.9% 500 ML INJ 500 ML IV SCH ×2 (12:05→23:01)
[2016-02-21] MEDS: levETIRAcetam 500MG PREMIX INJ 100 ML IV SCH ×2 (12:05→23:39)
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
[2016-02-21] MEDS ORDERED: VECURONIUM BROMIDE 10 MG VIAL IV PUSH ONE (15:15)
[2016-02-21] MEDS ORDERED: fentaNYL CITRATE 250 MCG/5 ML AMP IV PUSH ONE (15:15)
[2016-02-21] MEDS ORDERED: TERBUTALINE INJ 1 MG/ML AMP SQ PRN (15:15)
[2016-02-21] MEDS ORDERED: MIDAZOLAM HCL 5 MG/5 ML VIAL IV PUSH ONE (15:15)
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
--- NOTE | 2016-02-21 16:12 | PD.PROCEDR ---
Procedure Note Procedure Date: 02/21/16 Procedure: Fiberoptic bronchoscopy with bronchoalveolar lavage, diagnostic Indication: Guidance for percutaneous tracheostomy tube placement by Dr. Gordillo/ Details of procedure: Informed consent was obtained from family after discussion of risk/benefits/ alternatives. Signed consent is on the chart. Timeout performed. The patient was positioned with head slightly inclined and neck in neutral position with inline stabilization. The patient was preoxygenated with 100% FiO2 via endotracheal tube and sedated with fentanyl 100 mcg IV, vecuronium 10 mg IV, and propofol drip at 50 mcg/kg/m. I entered the endotracheal tube with a flexible bronchoscope. The endotracheal tube was withdrawn approximately 18 cm. An introducer needle with angiocatheter was placed in the trachea by Dr. Gordillo without any damage to the posterior wall. A size 8 Shiley percutaneous tracheostomy tube was placed. I removed the bronchoscope from the endotracheal tube and inserted it through the new tracheostomy tube and visualized normal tracheal structures. I removed the bronchoscope and the tracheostomy tube was connected to the ventilator circuit. After the tracheostomy tube was sutured in place, I reentered the tracheostomy tube with the bronchoscope. All lung segments were visually inspected and were cleared of any significant blood clots or mucus. The katy was sharp. Mucosa was normal. The patient tolerated the procedure well without apparent complication. A stat chest x-ray was ordered. Lee Sims MD Feb 21, 2016 16:12
--- NOTE | 2016-02-21 17:08 | RADRPT ---
EXAM DATE/TIME: 02/21/2016 16:27 [facility] COMPARISON: CHEST SINGLE AP, February 21, 2016, 4:30. INDICATIONS : Post tracheostomy. MEDICAL HISTORY : None. SURGICAL HISTORY : None. ENCOUNTER: Subsequent ACUITY: 1 day PAIN SCORE: Non-responsive. LOCATION: upper chest FINDINGS: The cardiac silhouette is enlarged in transverse diameter. There is patchy alveolar disease bilateral ly compatible with edema or pneumonia. A tracheostomy tube is in place in the midline. A left sided s ubclavian vein catheter is in place without pneumothorax with its tip in the superior vena cava. CONCLUSION: Satisfactory position of tracheostomy tube without evidence of pneumothorax. Basil Meraz MD on February 21, 2016 at 17:05 Board Certified Radiologist. This report was verified electronically.
[2016-02-21] MEDS ORDERED: ALBUMIN HUMAN 5% 12.5 GM/250 ML BOTTLE IV ONE (21:15)
[2016-02-21] MEDS: MAGNESIUM SULFAT 1 GM PREMIX 100 ML x2 bags IV SCH ×2 (21:34→22:21)
[2016-02-22] VITALS (17 sets, daily range): BP systolic 120–154; BP diastolic 58–82; PULSE 66–96; RESP 20–34; TEMP 98.6–100.2; O2SAT 95–100
[2016-02-22] MEDS: CHLORHEXIDINE GLUCONATE 2 % 1 PACK (2 CLOTHS) TOP SCH (01:02)
[2016-02-22] MEDS: PIPERACIL-TAZO 3.375 GM PREMIX 50 ML IV SCH ×3 (01:02→15:45)
[2016-02-22 05:13] LABS: BICARBONATE 25.7 MEQ/L (21.0-32.0)
[2016-02-22 05:27] LABS: POTASSIUM 1.6 MEQ/L (3.5-5.1)
[2016-02-22] MEDS: POTASSIUM CHLOR 40 MEQ PREMIX 100 ML IV PRN ×4 (05:30→12:41)
[2016-02-22] MEDS: METOCLOPRAMIDE HCL 10 MG/2 ML VIAL IV PUSH SCH ×3 (05:30→21:10)
[2016-02-22] MEDS: PROPOFOL 1000 MG/100 ML INJ 100 ML IV SCH ×4 (06:29→21:10)
[2016-02-22] MEDS ORDERED: FLURBIPROFEN 0.03% OPHT SOLN 2.5 ML BTL LEFT EYE SCH (06:30)
[2016-02-22] MEDS ORDERED: PROPARACAINE HCL 0.5% OPHT SOLN 15 ML BTL LEFT EYE ONE (06:30)
[2016-02-22] MEDS ORDERED: TROPICAMIDE 1% OPHT SOLN 15 ML BTL LEFT EYE SCH (06:30)
[2016-02-22] MEDS ORDERED: LIDOCAINE HCL 2% JELLY 5 ML SYRINGE TOPICAL ONE (06:30)
[2016-02-22] MEDS ORDERED: CYCLOPENTOLATE HCL 1% OPHT SOLN 2 ML BTL LEFT EYE SCH (06:30)
[2016-02-22] MEDS ORDERED: PHENYLEPHRINE HCL 10% OPTH SOLN 5 ML BTL LEFT EYE SCH (06:30)
[2016-02-22] MEDS: POTASSIUM CL 40 MEQ/30 ML LIQ UDC PO/TUBE PRN (06:37)
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
[2016-02-22] MEDS: LACTULOSE SYRUP 20 GM/30 ML CUP PO SCH (07:50)
[2016-02-22] MEDS: PANTOPRAZOLE SODIUM 40 MG VIAL IV SCH (07:50)
[2016-02-22] MEDS: POLYETHYLENE GLYCOL 17 GM PKG PO SCH (07:50)
[2016-02-22] MEDS: DOCUSATE SODIUM 100 MG/10 ML UDC NG SCH ×2 (07:50→21:10)
[2016-02-22] MEDS: CHLORHEXIDINE 0.12% (ORAL KIT) 15 ML CUP MT SCH ×2 (07:51→21:10)
[2016-02-22] MEDS: SODIUM CHLORIDE 0.9% FLUSH 5 ML FLUSH IVF SCH ×2 (07:51→21:10)
[2016-02-22] MEDS: RESP: ALBUTEROL 2.5 MG/IPRATROPIUM 0.5 MG NEB (PRN) INH (07:55)
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
[2016-02-22] MEDS ORDERED: PHARMACY ORDERED LAB XX ONE (10:45)
[2016-02-22] MEDS: levETIRAcetam 500MG PREMIX INJ 100 ML IV SCH ×2 (11:51→23:36)
[2016-02-22] MEDS: fentaNYL DRIP 250 ML IV SCH ×2 (11:51→21:10)
[2016-02-22] MEDS: VANCOMYCIN INJ 1,500 MG in SODIUM CHLORID 0.9% 500 ML INJ 500 ML IV SCH (11:52)
[2016-02-22 12:12] LABS: BICARBONATE 26.1 MEQ/L (21.0-32.0); POTASSIUM 3.5 MEQ/L (3.5-5.1); VANCOMYCIN TROUGH 14.8 MCG/ML (5.0-10.0)
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
[2016-02-22] MEDS: LABETALOL HCL 100 MG/20 ML VIAL IV PUSH PRN (17:39)
[2016-02-22] MEDS ORDERED: ALTEPLASE RECOMBINANT 2 MG VIAL IV FLUSH SCH ×3 (22:30)
[2016-02-23] VITALS (16 sets, daily range): BP systolic 130–173; BP diastolic 62–87; PULSE 75–88; RESP 18–30; TEMP 99.3–100.2; O2SAT 97–100
[2016-02-23] MEDS: PIPERACIL-TAZO 3.375 GM PREMIX 50 ML IV SCH ×3 (00:51→17:11)
[2016-02-23] MEDS: VANCOMYCIN INJ 1,500 MG in SODIUM CHLORID 0.9% 500 ML INJ 500 ML IV SCH ×2 (00:51→11:41)
[2016-02-23] MEDS: CHLORHEXIDINE GLUCONATE 2 % 1 PACK (2 CLOTHS) TOP SCH (01:46)
[2016-02-23] MEDS: PROPOFOL 1000 MG/100 ML INJ 100 ML IV SCH ×2 (02:27→06:20)
[2016-02-23] MEDS: MORPHINE SULFATE 4 MG/ML INJ IV PUSH PRN (03:17)
[2016-02-23 03:39] LABS: AUTOMATED NEUTROPHIL # 15.9 TH/MM3 (1.8-7.7); BASOPHIL % 0.1 % (0.0-2.0); EOSINOPHIL # 0.4 TH/MM3 (0-0.4); EOSINOPHIL % 2.1 % (0.0-4.0); HEMATOCRIT 22.6 % (39.0-51.0); LYMPH % 7.6 % (9.0-44.0); LYMPHOCYTE # 1.5 TH/MM3 (1.0-4.8); MEAN CELL VOLUME 93.6 FL (80.0-100.0); MEAN CORPUSCULAR HEMOGLOBIN 31.8 PG (27.0-34.0); MONO % 10.3 % (0.0-8.0); NEUT % 79.9 % (16.0-70.0); PLATELET COUNT 431 TH/MM3 (150-450); RED BLOOD COUNT 2.42 MIL/MM3 (4.50-5.90); RED CELL DISTRIBUTION WIDTH 14.1 % (11.6-17.2); WHITE BLOOD COUNT 19.9 TH/MM3 (4.0-11.0)
[2016-02-23 03:41] LABS: HEMO FLAGS AUTO DIFF
[2016-02-23 03:52] LABS: BICARBONATE 28.4 MEQ/L (21.0-32.0); MAGNESIUM 2.4 MG/DL (1.5-2.5); POTASSIUM 4.2 MEQ/L (3.5-5.1)
[2016-02-23 04:19] LABS: BANDS 12 % (0-6); EOSINOPHILS 2 % (0-4); METAMYELOCYTES 6 % (0-1); NEUTROPHIL # MANUAL DIFF 17.9 TH/MM3 (1.8-7.7); POLYS (SEG NEUTROPHILS) 72 % (16-70); WBC DIFF SAMPLE 100
[2016-02-23 04:20] LABS: HYPOCHROMIA 1+ (NORMAL); PLATELET ESTIMATE SMEAR HIGH (NORMAL); PLATELET MORPHOLOGY NORMAL (NORMAL); SCAN/DIFF FINAL DIFF MANUAL
[2016-02-23] MEDS: METOCLOPRAMIDE HCL 10 MG/2 ML VIAL IV PUSH SCH ×2 (05:52→13:38)
[2016-02-23] MEDS: hydrALAZINE HCL 20 MG/ML VIAL IV PUSH PRN ×3 (07:47→21:05)
[2016-02-23] MEDS: CHLORHEXIDINE 0.12% (ORAL KIT) 15 ML CUP MT SCH ×2 (08:00→20:00)
[2016-02-23] MEDS: LABETALOL HCL 100 MG/20 ML VIAL IV PUSH PRN ×2 (08:30→13:15)
[2016-02-23] MEDS: PANTOPRAZOLE SODIUM 40 MG VIAL IV SCH (08:31)
[2016-02-23] MEDS: LACTULOSE SYRUP 20 GM/30 ML CUP PO SCH (08:31)
[2016-02-23] MEDS: POLYETHYLENE GLYCOL 17 GM PKG PO SCH (08:31)
[2016-02-23] MEDS: LISINOPRIL 5 MG TAB PO SCH (08:31)
[2016-02-23] MEDS: DOCUSATE SODIUM 100 MG/10 ML UDC NG SCH ×2 (08:31→21:00)
[2016-02-23] MEDS: ACETAMINOPHEN/HYDROcodone 325 MG/10 MG TAB PO PRN ×3 (08:59→21:06)
[2016-02-23] MEDS ORDERED: METOPROLOL TARTRATE 25 MG TAB PO SCH (09:00)
[2016-02-23] MEDS: SODIUM CHLORIDE 0.9% FLUSH 5 ML FLUSH IVF SCH ×2 (09:00→21:04)
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
[2016-02-23] MEDS: cloNIDine HCL 0.2 MG TAB PO SCH ×3 (09:10→22:00)
[2016-02-23] MEDS ORDERED: METOPROLOL TARTRATE 50 MG TAB PO ONE (09:15)
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
[2016-02-23] MEDS: levETIRAcetam 500MG PREMIX INJ 100 ML IV SCH ×2 (10:43→23:45)
[2016-02-23] MEDS: fentaNYL DRIP 250 ML IV SCH (16:00)
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
--- NOTE | 2016-02-23 17:30 | MG ---
cc: CHANG JAIMES Lab No: [id number] Date: 02/23/16 Age: 65 Sex: M Race: TECHNIQUE This is a 17 channel EEG. DESCRIPTION The background rhythm reveals generalized slowing in the delta frequency 3-4 Hz. There are occasional sharp waves identified over the right parietal area which do appear to phase reverse. There is no evidence for any continuous seizure activity. INTERPRETATION Abnormal study consistent with a diffuse encephalopathy. The sharp activity of the right hemisphere is suggestive of a possible underlying seizure focus. Chang Jaimes MD LAUREEN/CASI /4:42 PM /5:23 PM
[2016-02-23 17:43] LABS: BICARBONATE 27.3 MEQ/L (21.0-32.0)
[2016-02-23] MEDS: METOPROLOL TARTRATE 25 MG TAB PO SCH (21:05)
[2016-02-23] MEDS ORDERED: PHARMACY ORDERED LAB XX ONE (23:45)
[2016-02-24] VITALS (17 sets, daily range): BP systolic 123–182; BP diastolic 57–85; PULSE 74–96; RESP 23–30; TEMP 99.3–100.4; O2SAT 96–98
[2016-02-24] MEDS: VANCOMYCIN INJ 1,500 MG in SODIUM CHLORID 0.9% 500 ML INJ 500 ML IV SCH ×2 (02:16→13:08)
[2016-02-24] MEDS: PIPERACIL-TAZO 3.375 GM PREMIX 50 ML IV SCH ×3 (02:17→16:42)
[2016-02-24] MEDS: ACETAMINOPHEN/HYDROcodone 325 MG/10 MG TAB PO PRN ×3 (02:31→20:44)
[2016-02-24] MEDS: hydrALAZINE HCL 20 MG/ML VIAL IV PUSH PRN ×3 (02:32→20:44)
[2016-02-24 02:37] LABS: BICARBONATE 26.5 MEQ/L (21.0-32.0); POTASSIUM 3.7 MEQ/L (3.5-5.1)
[2016-02-24 02:39] LABS: VANCOMYCIN TROUGH 11.3 MCG/ML (5.0-10.0)
[2016-02-24] MEDS: CHLORHEXIDINE GLUCONATE 2 % 1 PACK (2 CLOTHS) TOP SCH (04:00)
[2016-02-24 06:40] LABS: AUTOMATED NEUTROPHIL # 14.9 TH/MM3 (1.8-7.7); BASOPHIL # 0.1 TH/MM3 (0-0.2); BASOPHIL % 0.4 % (0.0-2.0); EOSINOPHIL # 0.2 TH/MM3 (0-0.4); EOSINOPHIL % 1.1 % (0.0-4.0); HEMATOCRIT 25.7 % (39.0-51.0); HEMO FLAGS AUTO DIFF; LYMPHOCYTE # 1.9 TH/MM3 (1.0-4.8); MEAN CORPUSCULAR HEMOGLOBIN 30.4 PG (27.0-34.0); MEAN CORPUSCULAR HGB CONC 32.4 % (32.0-36.0); MONO % 9.1 % (0.0-8.0); NEUT % 79.4 % (16.0-70.0); PLATELET COUNT 479 TH/MM3 (150-450); RED BLOOD COUNT 2.73 MIL/MM3 (4.50-5.90); RED CELL DISTRIBUTION WIDTH 14.3 % (11.6-17.2); WHITE BLOOD COUNT 18.7 TH/MM3 (4.0-11.0)
[2016-02-24] MEDS: CHLORHEXIDINE 0.12% (ORAL KIT) 15 ML CUP MT SCH ×2 (08:00→20:00)
[2016-02-24] MEDS: PANTOPRAZOLE SODIUM 40 MG VIAL IV SCH (08:30)
[2016-02-24] MEDS: LACTULOSE SYRUP 20 GM/30 ML CUP PO SCH (08:31)
[2016-02-24] MEDS: SODIUM CHLORIDE 0.9% FLUSH 5 ML FLUSH IVF SCH ×2 (08:31→21:00)
[2016-02-24] MEDS: METOPROLOL TARTRATE 25 MG TAB PO SCH ×2 (08:31→20:44)
[2016-02-24] MEDS: POLYETHYLENE GLYCOL 17 GM PKG PO SCH (08:31)
[2016-02-24] MEDS: DOCUSATE SODIUM 100 MG/10 ML UDC NG SCH ×2 (08:31→21:00)
[2016-02-24] MEDS: LISINOPRIL 5 MG TAB PO SCH (08:31)
[2016-02-24 09:01] LABS: BANDS 5 % (0-6); CORRECTED NUCLEATED RBC 2 /100 WBC (0-0); EOSINOPHILS 1 % (0-4); METAMYELOCYTES 7 % (0-1); MYELOCYTES 4 % (0-0); NEUTROPHIL # MANUAL DIFF 15.1 TH/MM3 (1.8-7.7); PLATELET ESTIMATE SMEAR HIGH (NORMAL); PLATELET MORPHOLOGY NORMAL (NORMAL); POLYS (SEG NEUTROPHILS) 65 % (16-70); SCAN/DIFF FINAL DIFF MANUAL; WBC DIFF SAMPLE 100
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
[2016-02-24] MEDS: levETIRAcetam 500MG PREMIX INJ 100 ML IV SCH ×2 (13:07→22:45)
[2016-02-24] MEDS: cloNIDine HCL 0.2 MG TAB PO SCH ×2 (13:07→22:45)
[2016-02-24] MEDS: NOREPINEPHRINE-DEXTROSE DRIP 250 ML IV SCH (16:42)
[2016-02-24] MEDS: MIDAZOLAM 100 MG/ML INJ 100 ML IV SCH (20:44)
[2016-02-24] MEDS: METOCLOPRAMIDE HCL 10 MG/2 ML VIAL IV PUSH SCH (22:45)
[2016-02-25] VITALS (17 sets, daily range): BP systolic 140–198; BP diastolic 58–76; PULSE 68–95; RESP 26–29; TEMP 99.5–100; O2SAT 94–98
[2016-02-25] MEDS: VANCOMYCIN INJ 1,500 MG in SODIUM CHLORID 0.9% 500 ML INJ 500 ML IV SCH (00:58)
[2016-02-25] MEDS: CHLORHEXIDINE GLUCONATE 2 % 1 PACK (2 CLOTHS) TOP SCH (04:00)
[2016-02-25] MEDS: METOCLOPRAMIDE HCL 10 MG/2 ML VIAL IV PUSH SCH ×4 (06:00→20:11)
[2016-02-25 06:08] LABS: AUTOMATED NEUTROPHIL # 13.9 TH/MM3 (1.8-7.7); BASOPHIL % 0.2 % (0.0-2.0); EOSINOPHIL # 0.2 TH/MM3 (0-0.4); EOSINOPHIL % 1.1 % (0.0-4.0); LYMPH % 7.7 % (9.0-44.0); LYMPHOCYTE # 1.3 TH/MM3 (1.0-4.8); MEAN CELL VOLUME 94.7 FL (80.0-100.0); MEAN CORPUSCULAR HEMOGLOBIN 31.6 PG (27.0-34.0); MEAN CORPUSCULAR HGB CONC 33.4 % (32.0-36.0); MONO % 8.6 % (0.0-8.0); NEUT % 82.4 % (16.0-70.0); PLATELET COUNT 383 TH/MM3 (150-450); RED BLOOD COUNT 2.43 MIL/MM3 (4.50-5.90); RED CELL DISTRIBUTION WIDTH 14.1 % (11.6-17.2); WHITE BLOOD COUNT 16.9 TH/MM3 (4.0-11.0)
[2016-02-25 06:53] LABS: HEMO FLAGS AUTO DIFF
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
[2016-02-25] MEDS: PANTOPRAZOLE SODIUM 40 MG VIAL IV SCH (08:28)
[2016-02-25] MEDS: METOPROLOL TARTRATE 25 MG TAB PO SCH ×2 (08:28→20:12)
[2016-02-25] MEDS: POLYETHYLENE GLYCOL 17 GM PKG PO SCH (08:28)
[2016-02-25] MEDS: LISINOPRIL 5 MG TAB PO SCH (08:28)
[2016-02-25] MEDS: PIPERACIL-TAZO 3.375 GM PREMIX 50 ML IV SCH (08:28)
[2016-02-25] MEDS: LACTULOSE SYRUP 20 GM/30 ML CUP PO SCH (08:28)
[2016-02-25] MEDS: cloNIDine HCL 0.2 MG TAB PO SCH ×3 (08:28→20:12)
[2016-02-25] MEDS: SODIUM CHLORIDE 0.9% FLUSH 5 ML FLUSH IVF SCH ×2 (08:29→20:13)
[2016-02-25] MEDS: DOCUSATE SODIUM 100 MG/10 ML UDC NG SCH ×2 (08:29→20:12)
[2016-02-25] MEDS: CHLORHEXIDINE 0.12% (ORAL KIT) 15 ML CUP MT SCH ×2 (08:29→20:13)
[2016-02-25] MEDS ORDERED: LISINOPRIL 10 MG TAB PO SCH (09:00)
[2016-02-25] MEDS ORDERED: amLODIPine BESYLATE 5 MG TAB PO SCH (09:00)
[2016-02-25 09:01] LABS: ALKALINE PHOSPHATASE 275 U/L (45-117); ALT (GPT) 21 U/L (12-78); AST (GOT) 23 U/L (15-37); BLOOD UREA NITROGEN 16 MG/DL (7-18); CHLORIDE 114 MEQ/L (98-107); GLOMERULAR FILTRATION RATE 105 ML/MIN (>89); MAGNESIUM 2.2 MG/DL (1.5-2.5); POTASSIUM 3.4 MEQ/L (3.5-5.1); SODIUM (NA) 147 MEQ/L (136-145); TOTAL BILIRUBIN ADULT 1.2 MG/DL (0.2-1.0)
[2016-02-25 09:02] LABS: ANION GAP 7 MEQ/L (5-15); BICARBONATE 26.4 MEQ/L (21.0-32.0)
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
[2016-02-25 09:39] LABS: BLOOD GAS BASE EXCESS 1.7 mmol/L (-2-2); BLOOD GAS CARBOXYHEMOGLOBIN 1.8 % (0-4); BLOOD GAS HCO3 25 mmol/L (22-26); BLOOD GAS O2 HGB SATURATION 89 % (90-100); BLOOD GAS OXYGEN CONTENT 11.3 Vol % (12.0-20.0); BLOOD GAS PCO2 31 mmHg (38-42); BLOOD GAS PO2 61 mmHG (61-120); TEMP CORR TO 98.6
[2016-02-25 09:40] LABS: CRITICAL VALUE YES; DRAW SITE ART LINE; FIO2 40 %; OXYGEN DEVICE VENTILATOR; STAT NO; ULNAR PULSE PRESENT
[2016-02-25] MEDS: cefTRIAXone INJ 2,000 MG in SODIUM CHLORIDE 0.9% INJ 100 ML IV SCH (09:44)
[2016-02-25] MEDS: MIDAZOLAM 100 MG/ML INJ 100 ML IV SCH ×2 (10:13→21:52)
[2016-02-25] MEDS: FUROSEMIDE 20 MG TAB PO SCH (10:13)
[2016-02-25] MEDS: POTASSIUM CHLOR 40 MEQ PREMIX 100 ML IV PRN (10:16)
[2016-02-25 10:47] LABS: BANDS 13 % (0-6); EOSINOPHILS 3 % (0-4); HYPOCHROMIA 1+ (NORMAL); METAMYELOCYTES 3 % (0-1); MYELOCYTES 3 % (0-0); NEUTROPHIL # MANUAL DIFF 13.9 TH/MM3 (1.8-7.7); PLATELET ESTIMATE SMEAR NORMAL (NORMAL); PLATELET MORPHOLOGY NORMAL (NORMAL); POLYS (SEG NEUTROPHILS) 63 % (16-70); SCAN/DIFF FINAL DIFF MANUAL; WBC DIFF SAMPLE 100
[2016-02-25] MEDS ORDERED: PHARMACY ORDERED LAB XX ONE (11:45)
[2016-02-25] MEDS: LABETALOL HCL 100 MG/20 ML VIAL IV PUSH PRN ×2 (12:42→18:48)
[2016-02-25] MEDS: levETIRAcetam 500MG PREMIX INJ 100 ML IV SCH ×2 (12:42→23:19)
[2016-02-25] MEDS: MORPHINE SULFATE 4 MG/ML INJ IV PUSH PRN ×3 (17:45→23:19)
[2016-02-25] MEDS: hydrALAZINE HCL 20 MG/ML VIAL IV PUSH PRN (19:58)
[2016-02-25] MEDS: NOREPINEPHRINE-DEXTROSE DRIP 250 ML IV SCH (21:52)
[2016-02-26] VITALS (19 sets, daily range): BP systolic 134–175; BP diastolic 58–85; PULSE 66–96; RESP 18–26; TEMP 97.9–100; O2SAT 91–100
[2016-02-26] MEDS ORDERED: ALBUMIN HUMAN 5% 12.5 GM/250 ML BOTTLE IV ONE (00:45)
[2016-02-26] MEDS: MORPHINE SULFATE 4 MG/ML INJ IV PUSH PRN ×3 (01:53→22:29)
[2016-02-26] MEDS: fentaNYL DRIP 250 ML IV SCH (03:23)
[2016-02-26] MEDS: NOREPINEPHRINE-DEXTROSE DRIP 250 ML IV SCH ×3 (03:23→21:49)
[2016-02-26] MEDS: CHLORHEXIDINE GLUCONATE 2 % 1 PACK (2 CLOTHS) TOP SCH (04:00)
[2016-02-26] MEDS: 3% SALINE INJ 500 ML IV SCH (04:45)
[2016-02-26 04:54] LABS: BASOPHIL # 0.1 TH/MM3 (0-0.2); BASOPHIL % 0.5 % (0.0-2.0); EOSINOPHIL # 0.4 TH/MM3 (0-0.4); EOSINOPHIL % 2.9 % (0.0-4.0); HEMATOCRIT 21.8 % (39.0-51.0); LYMPH % 15.8 % (9.0-44.0); LYMPHOCYTE # 2.2 TH/MM3 (1.0-4.8); MEAN CELL VOLUME 95.5 FL (80.0-100.0); MEAN CORPUSCULAR HEMOGLOBIN 31.7 PG (27.0-34.0); MEAN CORPUSCULAR HGB CONC 33.2 % (32.0-36.0); MONO % 8.9 % (0.0-8.0); NEUT % 71.9 % (16.0-70.0); PLATELET COUNT 433 TH/MM3 (150-450); RED BLOOD COUNT 2.29 MIL/MM3 (4.50-5.90); RED CELL DISTRIBUTION WIDTH 14.3 % (11.6-17.2); WHITE BLOOD COUNT 13.9 TH/MM3 (4.0-11.0)
[2016-02-26 04:58] LABS: HEMO FLAGS AUTO DIFF
[2016-02-26 05:31] LABS: ALKALINE PHOSPHATASE 224 U/L (45-117); ALT (GPT) 20 U/L (12-78); ANION GAP 9 MEQ/L (5-15); AST (GOT) 25 U/L (15-37); BICARBONATE 25.9 MEQ/L (21.0-32.0); BLOOD UREA NITROGEN 18 MG/DL (7-18); CHLORIDE 113 MEQ/L (98-107); GLOMERULAR FILTRATION RATE 118 ML/MIN (>89); POTASSIUM 3.3 MEQ/L (3.5-5.1); SODIUM (NA) 148 MEQ/L (136-145); TOTAL BILIRUBIN ADULT 1.2 MG/DL (0.2-1.0)
[2016-02-26] MEDS: cloNIDine HCL 0.2 MG TAB PO SCH (05:44)
[2016-02-26] MEDS: METOCLOPRAMIDE HCL 10 MG/2 ML VIAL IV PUSH SCH ×3 (05:45→22:10)
[2016-02-26] MEDS: PROPOFOL 1000 MG/100 ML INJ 100 ML IV SCH ×4 (05:45→21:02)
[2016-02-26] MEDS: MIDAZOLAM 100 MG/ML INJ 100 ML IV SCH (05:46)
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
[2016-02-26 07:15] LABS: BANDS 5 % (0-6); CORRECTED NUCLEATED RBC 2 /100 WBC (0-0); EOSINOPHILS 3 % (0-4); HYPOCHROMIA 2+ (NORMAL); MICROCYTOSIS 1+ (NORMAL); MYELOCYTES 6 % (0-0); NEUTROPHIL # MANUAL DIFF 10.7 TH/MM3 (1.8-7.7); PLATELET ESTIMATE SMEAR NORMAL (NORMAL); PLATELET MORPHOLOGY NORMAL (NORMAL); POLYCHROMASIA 2.7 % (0.0-1.9); POLYS (SEG NEUTROPHILS) 66 % (16-70); SCAN/DIFF FINAL DIFF MANUAL; WBC DIFF SAMPLE 100
[2016-02-26] MEDS: PANTOPRAZOLE SODIUM 40 MG VIAL IV SCH (10:45)
[2016-02-26] MEDS: SODIUM CHLORIDE 0.9% FLUSH 5 ML FLUSH IVF SCH ×2 (10:46→21:00)
[2016-02-26] MEDS: LACTULOSE SYRUP 20 GM/30 ML CUP PO SCH (10:46)
[2016-02-26] MEDS: POTASSIUM CL 40 MEQ/30 ML LIQ UDC PO/TUBE PRN (10:46)
[2016-02-26] MEDS: cefTRIAXone INJ 2,000 MG in SODIUM CHLORIDE 0.9% INJ 100 ML IV SCH (10:46)
[2016-02-26] MEDS: DOCUSATE SODIUM 100 MG/10 ML UDC NG SCH ×2 (10:46→21:00)
[2016-02-26] MEDS: FUROSEMIDE 20 MG TAB PO SCH (10:46)
[2016-02-26] MEDS: CHLORHEXIDINE 0.12% (ORAL KIT) 15 ML CUP MT SCH (10:47)
[2016-02-26] MEDS: POTASSIUM CHLOR 40 MEQ PREMIX 100 ML IV PRN (10:47)
[2016-02-26] MEDS: POLYETHYLENE GLYCOL 17 GM PKG PO SCH (10:47)
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
[2016-02-26] MEDS: levETIRAcetam 500MG PREMIX INJ 100 ML IV SCH ×2 (11:45→22:10)
[2016-02-26] MEDS ORDERED: ONDANSETRON HCL 4 MG/2 ML VIAL IV PUSH ONE (12:00)
[2016-02-26] MEDS ORDERED: NORMOSOL R INJ 1,000 ML IV ONE (12:00)
[2016-02-26] MEDS ORDERED: SODIUM CHLORIDE 23.4% INJ 240 MEQ in SYRINGE/BAG 1 EA IV ONE (12:00)
[2016-02-26] MEDS ORDERED: PHENYLEPH/NS 1000 MCG/10 ML SYR IV ONE (12:00)
[2016-02-26] MEDS ORDERED: ePHEDrine/NS 50 MG/5 ML SYR IV ONE (12:00)
[2016-02-26] MEDS ORDERED: MANNITOL 12.5 GM/50 ML VIAL IV SCH (12:05)
[2016-02-26] MEDS ORDERED: MANNITOL INJ 50 ML ONE (12:05)
--- NOTE | 2016-02-26 12:13 | RADRPT ---
EXAM DATE/TIME: 02/26/2016 11:31 [facility] COMPARISON: CT BRAIN W/O CONTRAST, February 19, 2016, 4:23. INDICATIONS : Follow up to hemorrhage in brain. RADIATION DOSE: 37.84 CTDIvol (mGy) MEDICAL HISTORY : Non-responsive. SURGICAL HISTORY : Non-responsive. ENCOUNTER: ACUITY: 2 days PAIN SCALE: Non-responsive LOCATION: cranial TECHNIQUE: Multiple contiguous axial images were obtained of the head. Using automated exposure control and adj ustment of the mA and/or kV according to patient size, radiation dose was kept as low as reasonably a chievable to obtain optimal diagnostic quality images. FINDINGS: Shunt is seen in the left lateral ventricle, entering from the right. There is mass effect in the right hemisphere with 1.8 cm of midline shift. The mass effect is from a combination o f parenchymal hemorrhage and subdural blood. Craniotomy site is seen in the right cerebellum with some mass effect in the right cerebellar hemisph ere. CONCLUSION: Deterioration in the appearance of the scan as described above. Earl Gaitan MD FACR on February 26, 2016 at 11:47 Board Certified Radiologist. This report was verified electronically.
[2016-02-26] MEDS ORDERED: LIDOCAINE 1%/EPINEPHrine 1:100,000 SOLN 30 ML VIAL ONE (12:42)
[2016-02-26] MEDS ORDERED: THROMBIN (TOPICAL) 5,000 UNIT VIAL ONE (12:43)
[2016-02-26] MEDS ORDERED: GENTAMICIN SULFATE 80 MG/2 ML VIAL ONE (12:43)
[2016-02-26] MEDS ORDERED: GELFOAM SIZE 100 ONE (12:43)
[2016-02-26] MEDS ORDERED: ceFAZolin INJ 1,000 MG VIAL IV ONE (13:22)
[2016-02-26 14:17] LABS: BLOOD GAS BASE EXCESS -3.5 mmol/L (-2-2); BLOOD GAS CARBOXYHEMOGLOBIN 1.3 % (0-4); BLOOD GAS HCO3 22 mmol/L (22-26); BLOOD GAS O2 HGB SATURATION 96 % (90-100); BLOOD GAS OXYGEN CONTENT 10.5 Vol % (12.0-20.0); BLOOD GAS PCO2 48 mmHg (38-42); BLOOD GAS PO2 143 mmHg (61-120); BLOOD GAS TOTAL HGB 7.6 G/DL (12.0-16.0); CRITICAL VALUE YES; TEMP CORR TO 98.6
[2016-02-26 14:18] LABS: OXYGEN DEVICE OR; STAT YES; VENT SETTINGS OR
[2016-02-26] MEDS ORDERED: fentaNYL CITRATE 250 MCG/5 ML AMP ONE (15:35)
[2016-02-26] MEDS: ACETAMINOPHEN/HYDROcodone 325 MG/10 MG TAB PO PRN (16:56)
[2016-02-26 18:07] LABS: APTT (PATIENT) 30.1 SEC (22.6-28.8)
--- NOTE | 2016-02-26 18:37 | RADRPT ---
EXAM DATE/TIME: 02/26/2016 18:10 [facility] COMPARISON: No previous studies available for comparison. INDICATIONS : Follow up craniectomy. RADIATION DOSE: 55.35 CTDIvol (mGy) MEDICAL HISTORY : Non-responsive. SURGICAL HISTORY : Non-responsive. ENCOUNTER: Initial ACUITY: 1 day PAIN SCALE: Non-responsive LOCATION: cranial TECHNIQUE: Multiple contiguous axial images were obtained of the head. Using automated exposure control and adj ustment of the mA and/or kV according to patient size, radiation dose was kept as low as reasonably a chievable to obtain optimal diagnostic quality images. FINDINGS: There is a decompressive partial left-sided craniectomy. Comparison is with exam from earlier today. The degree of midline shift has decreased from about 19 mm to 9 mm from left to right. There is exten sive edema and some hemorrhage in the left hemisphere. Left-sided subdural drain is present. There is also previous partial craniectomy and right occipital bone with underlying encephalomalacia. No hydr ocephalus. There is fluid in the mastoid air cells bilaterally. There is fluid in the septated right sphenoid si nus. Skin jacinto are present on the left. CONCLUSION: 1. Postoperative decompressive partial craniectomy on the left side with improvement in mass effect a nd midline shift from left to right as above. Left-sided drain remains in place. There is some air in the left subdural. Hemorrhage and edema remain in the left hemisphere. Post craniectomy changes and right occipital region with underlying encephalomalacia stable. Franki Hood MD on February 26, 2016 at 18:28 Board Certified Radiologist. This report was verified electronically.
[2016-02-26 21:28] LABS: BLOOD GAS BASE EXCESS -0.5 mmol/L (-2-2); BLOOD GAS CARBOXYHEMOGLOBIN 1.6 % (0-4); BLOOD GAS HCO3 23 mmol/L (22-26); BLOOD GAS O2 HGB SATURATION 96 % (90-100); BLOOD GAS OXYGEN CONTENT 10.2 Vol % (12.0-20.0); BLOOD GAS PCO2 34 mmHg (38-42); BLOOD GAS PO2 138 mmHg (61-120); BLOOD GAS TOTAL HGB 7.3 G/DL (12.0-16.0); CRITICAL VALUE NO; TEMP CORR TO 98.6
[2016-02-26 21:29] LABS: FIO2 50 %; OXYGEN DEVICE VENTILATOR
[2016-02-26 21:30] LABS: DRAW SITE ART LINE; NUMBER OF ARTERIAL PUNCTURES 0; STAT NO; VENT SETTINGS PRVC/AC
--- NOTE | 2016-02-26 21:30 | PD.OP ---
Operative Report Date of Surgery: Feb 26, 2016 Preoperative Diagnosis: (1) Traumatic brain injury Traumatic brain injury status post previous suboccipital craniectomy severe progressive edema with increasing intracranial pressures secondary to left hemisphere hemorrhagic contusion. Postoperative Diagnosis: Traumatic brain injury status post previous suboccipital craniectomy severe progressive edema with increasing intracranial pressures secondary to left hemisphere hemorrhagic contusion. Procedure: Left frontotemporoparietal decompressive craniotomy Evacuation left frontotemporoparietal subdural hematoma Anesthesia: Gen. endotracheal Surgeon: Osman Gabriel Farmer And Grazier(s): Sabino Monroy Operation and Findings: Findings: Moderately severe left hemisphere edema. Moderate subacute appearing left hemisphere subdural hematoma Procedure in detail: The patient was brought into the operating room and general endotracheal anesthesia induced without difficulty. The Cuenca catheter, and sequential compression devices were in place. The lines were established per anesthesia. The patient was placed in semilateral position on the 3080 table with the head on the horseshoe headrest. All extremities were appropriately padded Appropriate timeout procedure was performed with all personnel present and in agreement The left side of the head was shaved with the clippers and sterilely prepped and draped 1% Xylocaine was used for local infiltration over the incision site which was made over the left frontotemporal parietal area in a curvilinear fashion and carried sharply down to the cranium through the temporalis muscle and fascia. The scalp and temporalis muscle flap were elevated in a single laye with the periosteal elevator and retracted r over a laparotomy sponge with the large scalp hooks. The fiber optics supervisor was used to place a single bur hole in the posterior left frontoparietal region and the craniotome was used since to incise the bone flap. The dura was moderately tense upon removal of the bone flap. The dura was opened in a cruciate fashion and the edges retracted with 4-0 Nurolon suture. The moderate underlying subdural hematoma was evacuated with gentle suction and irrigation until clear The bipolar forceps were used to control any bleeding at the operative site. There was persistent moderate surrounding edema after the dura was opened, and the brain was bulging slightly beyond the edge dura at the the craniotomy site. It was elected to leave the bone flap out and the dura opened to allow for cerebral edema. A 7 mm flat fluted drain was left in place in the subgaleal space The drain was brought out through incision in the posterior parietal region and secured to the skin with nylon suture The closure was performed with 2-0 Vicryl for the temporalis muscle fascia and galeal closure and jacinto for the skin closure. A dressing of sterile Telfa, 4 x 4's, and a loose head stockinette was applied. The patient was taken to recovery room in stable condition All counts were correct at the end of the case. Estimated blood loss was 100 cc No specimen was sent to pathology Osman Gabriel MD Feb 26, 2016 21:30
[2016-02-26 21:54] LABS: BICARBONATE 26.4 MEQ/L (21.0-32.0); POTASSIUM 4.2 MEQ/L (3.5-5.1)
[2016-02-26 22:11] LABS: CALCIUM-PROTEIN CORRECTED 8.2 MG/DL (8.5-10.1)
[2016-02-26 22:31] LABS: BLOOD GAS BASE EXCESS 0.4 mmol/L (-2-2); BLOOD GAS CARBOXYHEMOGLOBIN 1.4 % (0-4); BLOOD GAS HCO3 24 mmol/L (22-26); BLOOD GAS METHEMOGLOBIN 0.7 % (0-2); BLOOD GAS O2 HGB SATURATION 91 % (90-100); BLOOD GAS OXYGEN CONTENT 9.4 Vol % (12.0-20.0); BLOOD GAS PCO2 38 mmHg (38-42); BLOOD GAS PO2 71 mmHg (61-120); BLOOD GAS TOTAL HGB 7.3 G/DL (12.0-16.0); TEMP CORR TO 98.6
[2016-02-26 22:32] LABS: CRITICAL VALUE NO; DRAW SITE ART LINE; FIO2 50 %; OXYGEN DEVICE VENTILATOR; STAT NO; VENT SETTINGS PRVC/AC
[2016-02-27] VITALS (21 sets, daily range): BP systolic 130–159; BP diastolic 56–90; PULSE 76–112; RESP 20–28; TEMP 98.2–99; O2SAT 94–100
[2016-02-27] MEDS: CHLORHEXIDINE GLUCONATE 2 % 1 PACK (2 CLOTHS) TOP SCH
[2016-02-27] MEDS: fentaNYL DRIP 250 ML IV SCH ×3 (00:24→20:15)
[2016-02-27] MEDS: PROPOFOL 1000 MG/100 ML INJ 100 ML IV SCH ×7 (00:24→21:58)
[2016-02-27] MEDS: 3% SALINE INJ 500 ML IV SCH ×3 (02:23→22:21)
[2016-02-27] MEDS: hydrALAZINE HCL 20 MG/ML VIAL IV PUSH PRN ×3 (02:45→15:56)
[2016-02-27] MEDS: MORPHINE SULFATE 4 MG/ML INJ IV PUSH PRN ×2 (02:45→03:05)
[2016-02-27] MEDS: CHLORHEXIDINE 0.12% (ORAL KIT) 15 ML CUP MT SCH ×3 (03:05→20:00)
[2016-02-27] MEDS: MIDAZOLAM 100 MG/ML INJ 100 ML IV SCH ×3 (05:18→20:15)
[2016-02-27 05:24] LABS: MEAN CELL VOLUME 96.2 FL (80.0-100.0); MEAN CORPUSCULAR HEMOGLOBIN 31.9 PG (27.0-34.0); MEAN CORPUSCULAR HGB CONC 33.1 % (32.0-36.0); PLATELET COUNT 396 TH/MM3 (150-450); RED BLOOD COUNT 2.16 MIL/MM3 (4.50-5.90); RED CELL DISTRIBUTION WIDTH 15.1 % (11.6-17.2); WHITE BLOOD COUNT 9.8 TH/MM3 (4.0-11.0)
[2016-02-27 05:26] LABS: REVIEW FLAG FINAL
[2016-02-27 05:28] LABS: HEMATOCRIT 20.8 % (39.0-51.0)
[2016-02-27 05:52] LABS: BICARBONATE 23.7 MEQ/L (21.0-32.0); MAGNESIUM 2.2 MG/DL (1.5-2.5); POTASSIUM 3.6 MEQ/L (3.5-5.1)
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
[2016-02-27] MEDS: METOCLOPRAMIDE HCL 10 MG/2 ML VIAL IV PUSH SCH ×3 (06:04→22:20)
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
[2016-02-27] MEDS: LACTULOSE SYRUP 20 GM/30 ML CUP PO SCH (09:00)
[2016-02-27] MEDS ORDERED: POTASSIUM CL 40 MEQ/30 ML LIQ UDC PO ONE (09:00)
[2016-02-27] MEDS: POLYETHYLENE GLYCOL 17 GM PKG PO SCH (09:00)
[2016-02-27] MEDS: cefTRIAXone INJ 2,000 MG in SODIUM CHLORIDE 0.9% INJ 100 ML IV SCH (09:51)
[2016-02-27] MEDS: PANTOPRAZOLE SODIUM 40 MG VIAL IV SCH (09:53)
[2016-02-27] MEDS: DOCUSATE SODIUM 100 MG/10 ML UDC NG SCH ×2 (09:53→21:00)
[2016-02-27] MEDS: SODIUM CHLORIDE 0.9% FLUSH 5 ML FLUSH IVF SCH ×2 (09:53→21:00)
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
[2016-02-27] MEDS: levETIRAcetam 500MG PREMIX INJ 100 ML IV SCH ×2 (12:00→22:20)
[2016-02-27] MEDS: LABETALOL HCL 100 MG/20 ML VIAL IV PUSH PRN (17:56)
[2016-02-28] VITALS (20 sets, daily range): BP systolic 119–150; BP diastolic 58–77; PULSE 8–105; RESP 20–26; TEMP 96.6–98.1; O2SAT 94–100
[2016-02-28] MEDS: PROPOFOL 1000 MG/100 ML INJ 100 ML IV SCH ×8 (03:27→23:27)
[2016-02-28] MEDS: CHLORHEXIDINE GLUCONATE 2 % 1 PACK (2 CLOTHS) TOP SCH (03:28)
[2016-02-28] MEDS: fentaNYL DRIP 250 ML IV SCH ×2 (03:28→12:49)
[2016-02-28] MEDS: METOCLOPRAMIDE HCL 10 MG/2 ML VIAL IV PUSH SCH (04:31)
[2016-02-28 05:25] LABS: HEMATOCRIT 25.2 % (39.0-51.0); MEAN CORPUSCULAR HEMOGLOBIN 30.5 PG (27.0-34.0); MEAN CORPUSCULAR HGB CONC 32.8 % (32.0-36.0); PLATELET COUNT 437 TH/MM3 (150-450); RED CELL DISTRIBUTION WIDTH 16.4 % (11.6-17.2); REVIEW FLAG FINAL; WHITE BLOOD COUNT 9.2 TH/MM3 (4.0-11.0)
[2016-02-28] MEDS: MIDAZOLAM 100 MG/ML INJ 100 ML IV SCH ×2 (07:01→18:11)
[2016-02-28] MEDS ORDERED: levETIRAcetam 500 MG/5 ML UDC TUBE SCH (09:00)
[2016-02-28] MEDS: RANITIDINE HCL SYRUP 150 MG/10 ML UDC PO SCH ×2 (09:09→20:26)
[2016-02-28] MEDS: cefTRIAXone INJ 2,000 MG in SODIUM CHLORIDE 0.9% INJ 100 ML IV SCH (09:09)
[2016-02-28] MEDS: DOCUSATE SODIUM 100 MG/10 ML UDC NG SCH ×2 (09:09→20:26)
[2016-02-28] MEDS: CHLORHEXIDINE 0.12% (ORAL KIT) 15 ML CUP MT SCH ×2 (09:10→20:26)
[2016-02-28] MEDS: SODIUM CHLORIDE 0.9% FLUSH 5 ML FLUSH IVF SCH ×2 (09:10→20:26)
[2016-02-28] MEDS ORDERED: levETIRAcetam 500 MG/5 ML UDC TUBE ONE (09:15)
[2016-02-28 10:17] LABS: BICARBONATE 21.8 MEQ/L (21.0-32.0); MAGNESIUM 2.1 MG/DL (1.5-2.5); POTASSIUM 3.8 MEQ/L (3.5-5.1)
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
[2016-02-28] MEDS: 3% SALINE INJ 500 ML IV SCH (12:49)
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
[2016-02-28] MEDS ORDERED: DEXTROSE 50% IN WATER 50 ML VIAL(D50) IV PUSH PRN (13:45)
[2016-02-28] MEDS ORDERED: GLUCAGON 1 MG/ML VIAL OTHER PRN (13:45)
[2016-02-28] MEDS ORDERED: PIPERACIL-TAZO 3.375 GM PREMIX 50 ML IV SCH (18:00)
[2016-02-28] MEDS: INSULIN ASPART SUPPLEMENTAL SCALE SQ SCH ×2 (18:12→23:14)
--- NOTE | 2016-02-28 19:44 | RADRPT ---
EXAM DATE/TIME: 02/28/2016 19:21 [facility] COMPARISON: CHEST SINGLE AP, February 27, 2016, 4:32. INDICATIONS : Respiratory distress. MEDICAL HISTORY : Unobtainable. SURGICAL HISTORY : Unobtainable. ENCOUNTER: Subsequent ACUITY: 1 week PAIN SCORE: Non-responsive. LOCATION: Bilateral chest FINDINGS: Worsening diffuse pulmonary infiltrates. At least small, bilateral pleural effusions are likely as we ll. I don't see a pneumothorax. Heart size stable, upper limits of normal. Trach collar again noted. There is a left subclavian centr al venous catheter with tip in the superior vena cava. CONCLUSION: Worsening bilateral airspace disease. Duy Skelton MD on February 28, 2016 at 19:40 Board Certified Radiologist. This report was verified electronically.
[2016-02-28] MEDS: levETIRAcetam 500 MG/5 ML UDC TUBE SCH (20:26)
[2016-02-29] VITALS (17 sets, daily range): BP systolic 106–133; BP diastolic 62–75; PULSE 88–118; RESP 25–32; TEMP 97.5–98.8; O2SAT 94–100
[2016-02-29] MEDS: fentaNYL DRIP 250 ML IV SCH ×3 (00:20→18:31)
[2016-02-29] MEDS: RESP: ALBUTEROL 2.5 MG/IPRATROPIUM 0.5 MG NEB (PRN) INH ×2 (00:26→20:21)
[2016-02-29] MEDS ORDERED: FUROSEMIDE 20 MG/2 ML VIAL IV PUSH ONE (01:00)
[2016-02-29 01:30] LABS: BLOOD GAS BASE EXCESS -1.4 mmol/L (-2-2); BLOOD GAS CARBOXYHEMOGLOBIN 1.4 % (0-4); BLOOD GAS HCO3 22 mmol/L (22-26); BLOOD GAS O2 HGB SATURATION 88 % (90-100); BLOOD GAS OXYGEN CONTENT 11.6 Vol % (12.0-20.0); BLOOD GAS PCO2 35 mmHg (38-42); BLOOD GAS PO2 59 mmHg (61-120); BLOOD GAS TOTAL HGB 9.4 G/DL (12.0-16.0); TEMP CORR TO 98.6
[2016-02-29 01:33] LABS: CRITICAL VALUE YES; OXYGEN DEVICE VENTILATOR
[2016-02-29 01:34] LABS: FIO2 50 %; VENT SETTINGS PRVC
[2016-02-29 01:35] LABS: DRAW SITE RT RADIAL; NUMBER OF ARTERIAL PUNCTURES 1; STAT YES; ULNAR PULSE PRESENT
[2016-02-29] MEDS: 3% SALINE INJ 500 ML IV SCH ×2 (02:23→14:54)
[2016-02-29] MEDS: PROPOFOL 1000 MG/100 ML INJ 100 ML IV SCH ×7 (03:07→19:41)
[2016-02-29] MEDS: CHLORHEXIDINE GLUCONATE 2 % 1 PACK (2 CLOTHS) TOP SCH (04:00)
[2016-02-29] MEDS: MIDAZOLAM 100 MG/ML INJ 100 ML IV SCH ×3 (05:08→18:31)
--- NOTE | 2016-02-29 05:13 | RADRPT ---
EXAM DATE/TIME: 02/29/2016 04:22 [facility] COMPARISON: CHEST SINGLE AP, February 23, 2016, 9:09. CHEST SINGLE AP, February 27, 2016, 4:32. CHEST SINGLE AP, February, 19:21. INDICATIONS : Evaluate for pulmonary disease. MEDICAL HISTORY : Unobtainable. SURGICAL HISTORY : Unobtainable. ENCOUNTER: Subsequent ACUITY: 1 week PAIN SCORE: Non-responsive. LOCATION: Bilateral chest FINDINGS: Portable AP view of the chest demonstrates a normal-sized cardiac silhouette. Left subclavian central line and tracheostomy remain present. Multiple lines overlie the patient. There is perihilar airspac e opacity and bibasilar pleural-parenchymal opacities. These findings are stable. No pneumothorax is visualized. CONCLUSION: Stable chest x-ray with bilateral pleural effusions. There is airspace change bilaterally suggestive of pulmonary edema. Duy De Souza MD on February 29, 2016 at 5:09 Board Certified Radiologist. This report was verified electronically.
[2016-02-29] MEDS: INSULIN ASPART SUPPLEMENTAL SCALE SQ SCH ×4 (05:35→23:26)
[2016-02-29 05:46] LABS: HEMATOCRIT 26.6 % (39.0-51.0); MEAN CELL VOLUME 94.2 FL (80.0-100.0); MEAN CORPUSCULAR HEMOGLOBIN 30.7 PG (27.0-34.0); MEAN CORPUSCULAR HGB CONC 32.5 % (32.0-36.0); PLATELET COUNT 477 TH/MM3 (150-450); RED BLOOD COUNT 2.82 MIL/MM3 (4.50-5.90); RED CELL DISTRIBUTION WIDTH 16.3 % (11.6-17.2); REVIEW FLAG FINAL; WHITE BLOOD COUNT 9.2 TH/MM3 (4.0-11.0)
[2016-02-29 06:04] LABS: ALKALINE PHOSPHATASE 221 U/L (45-117); ALT (GPT) 22 U/L (12-78); ANION GAP 9 MEQ/L (5-15); AST (GOT) 23 U/L (15-37); BICARBONATE 25.2 MEQ/L (21.0-32.0); BLOOD UREA NITROGEN 11 MG/DL (7-18); CHLORIDE 114 MEQ/L (98-107); GLOMERULAR FILTRATION RATE 129 ML/MIN (>89); POTASSIUM 3.4 MEQ/L (3.5-5.1); SODIUM (NA) 148 MEQ/L (136-145); TOTAL BILIRUBIN ADULT 0.9 MG/DL (0.2-1.0)
[2016-02-29] MEDS: POTASSIUM CHLOR 40 MEQ PREMIX 100 ML IV PRN (06:47)
[2016-02-29] MEDS: CHLORHEXIDINE 0.12% (ORAL KIT) 15 ML CUP MT SCH ×2 (08:42→19:34)
[2016-02-29] MEDS: cefTRIAXone INJ 2,000 MG in SODIUM CHLORIDE 0.9% INJ 100 ML IV SCH (08:42)
[2016-02-29] MEDS: levETIRAcetam 500 MG/5 ML UDC TUBE SCH ×2 (08:42→19:34)
[2016-02-29] MEDS: SODIUM CHLORIDE 0.9% FLUSH 5 ML FLUSH IVF SCH ×2 (08:43→19:35)
[2016-02-29] MEDS: RANITIDINE HCL SYRUP 150 MG/10 ML UDC PO SCH ×2 (08:43→19:34)
[2016-02-29] MEDS: DOCUSATE SODIUM 100 MG/10 ML UDC NG SCH ×2 (08:43→19:35)
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
[2016-02-29] MEDS: LORazepam 2 MG/ML VIAL IV PRN ×3 (10:34→18:27)
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
[2016-02-29] MEDS: METOCLOPRAMIDE HCL 10 MG/2 ML VIAL IV SCH ×2 (15:36→23:26)
[2016-02-29] MEDS ORDERED: FUROSEMIDE 40 MG/4 ML VIAL IV PUSH ONE (17:30)
--- NOTE | 2016-02-29 18:07 | MG ---
cc: CADENCE ROBB Lab No: [id number] Date: Age: Sex: M Race: HISTORY: The patient is intubated. Craniectomy on the left side. Left subdural. Mass effect on the brain stem. MEDICATIONS: 1. Diprivan. 2. Fentanyl. 3. Versed. 4. Zantac. 5. Ceftriaxone. DESCRIPTION: There is a hemisphere asymmetry with what appears to be more normal-appearing central rhythms on the left compared to the right. Diffuse alpha rhythms are noted. There may be a slight breech rhythm on the left. 6 Hz diffuse slowing is noted. I do not see any seizure activity. Photic stimulation was performed without significant posterior driving. IMPRESSION: Some slight breech rhythm on the left. No seizure activity is seen. Some mild theta slowing is seen diffusely. MD PRINCESS Marcano/KOBI /5:31 PM /6:00 PM
[2016-03-01] VITALS (19 sets, daily range): BP systolic 90–135; BP diastolic 50–83; PULSE 86–114; RESP 24–32; TEMP 97.5–100.8; O2SAT 93–100
[2016-03-01] MEDS: PROPOFOL 1000 MG/100 ML INJ 100 ML IV SCH ×5 (00:45→23:30)
[2016-03-01] MEDS: fentaNYL DRIP 250 ML IV SCH ×2 (03:40→20:11)
[2016-03-01] MEDS: CHLORHEXIDINE GLUCONATE 2 % 1 PACK (2 CLOTHS) TOP SCH (03:41)
[2016-03-01] MEDS: 3% SALINE INJ 500 ML IV SCH ×3 (03:42→23:31)
[2016-03-01] MEDS: INSULIN ASPART SUPPLEMENTAL SCALE SQ SCH ×3 (05:48→18:00)
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
[2016-03-01] MEDS: METOCLOPRAMIDE HCL 10 MG/2 ML VIAL IV SCH ×3 (08:49→23:32)
[2016-03-01] MEDS: CHLORHEXIDINE 0.12% (ORAL KIT) 15 ML CUP MT SCH ×2 (08:49→20:22)
[2016-03-01] MEDS: LACTULOSE SYRUP 20 GM/30 ML CUP PEG SCH ×2 (08:50→20:10)
[2016-03-01] MEDS: DOCUSATE SODIUM 100 MG/10 ML UDC NG SCH ×2 (08:50→20:10)
[2016-03-01] MEDS: FUROSEMIDE 40 MG/4 ML VIAL IV PUSH SCH (08:50)
[2016-03-01] MEDS: POLYETHYLENE GLYCOL 17 GM PKG PEG SCH ×2 (08:50→20:10)
[2016-03-01] MEDS: cefTRIAXone INJ 2,000 MG in SODIUM CHLORIDE 0.9% INJ 100 ML IV SCH (08:50)
[2016-03-01] MEDS: SODIUM CHLORIDE 0.9% FLUSH 5 ML FLUSH IVF SCH ×2 (08:51→20:14)
[2016-03-01] MEDS: levETIRAcetam 500 MG/5 ML UDC TUBE SCH ×2 (08:51→20:10)
[2016-03-01] MEDS: RANITIDINE HCL SYRUP 150 MG/10 ML UDC PO SCH ×2 (08:51→20:10)
[2016-03-01] MEDS: LORazepam 2 MG/ML VIAL IV PRN (09:14)
[2016-03-01 09:48] LABS: HEMATOCRIT 24.4 % (39.0-51.0); MEAN CELL VOLUME 95.6 FL (80.0-100.0); MEAN CORPUSCULAR HEMOGLOBIN 30.6 PG (27.0-34.0); PLATELET COUNT 490 TH/MM3 (150-450); RED BLOOD COUNT 2.55 MIL/MM3 (4.50-5.90); RED CELL DISTRIBUTION WIDTH 16.2 % (11.6-17.2); REVIEW FLAG FINAL; WHITE BLOOD COUNT 10.5 TH/MM3 (4.0-11.0)
[2016-03-01 10:14] LABS: ALKALINE PHOSPHATASE 263 U/L (45-117); ALT (GPT) 28 U/L (12-78); ANION GAP 9 MEQ/L (5-15); AST (GOT) 36 U/L (15-37); BICARBONATE 25.5 MEQ/L (21.0-32.0); BLOOD UREA NITROGEN 15 MG/DL (7-18); CHLORIDE 117 MEQ/L (98-107); GLOMERULAR FILTRATION RATE 118 ML/MIN (>89); POTASSIUM 3.7 MEQ/L (3.5-5.1); SODIUM (NA) 151 MEQ/L (136-145); TOTAL BILIRUBIN ADULT 1.1 MG/DL (0.2-1.0)
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
--- NOTE | 2016-03-01 14:52 | RADRPT ---
EXAM DATE/TIME: 03/01/2016 14:02 [facility] COMPARISON: CHEST SINGLE AP, February 29, 2016, 4:22. INDICATIONS : Change in tracheostomy size. MEDICAL HISTORY : None. SURGICAL HISTORY : ENCOUNTER: Initial ACUITY: 2 weeks PAIN SCORE: Non-responsive. LOCATION: Bilateral chest FINDINGS: Trach tube, central venous catheter are in good position. Patchy airspace disease is seen in both rig ht and left lungs. Minimal parenchymal changes are seen particularly in the left base, stable in the interval. CONCLUSION: 1. Stable chest with trach tube and central line in good position. 2. Patchy airspace disease is seen in both lungs. Earl Gaitan MD FACR on March 01, 2016 at 14:46 Board Certified Radiologist. This report was verified electronically.
[2016-03-01] MEDS: ACETAMINOPHEN 325 MG TAB PO PRN (18:30)
[2016-03-01] MEDS: MIDAZOLAM 100 MG/ML INJ 100 ML IV SCH (20:11)
[2016-03-02] VITALS (19 sets, daily range): BP systolic 98–147; BP diastolic 63–95; PULSE 76–100; RESP 20–37; TEMP 96.6–98.4; O2SAT 92–100
[2016-03-02] MEDS: INSULIN ASPART SUPPLEMENTAL SCALE SQ SCH ×4 (00:38→17:42)
[2016-03-02] MEDS: CHLORHEXIDINE GLUCONATE 2 % 1 PACK (2 CLOTHS) TOP SCH (02:53)
[2016-03-02] MEDS: PROPOFOL 1000 MG/100 ML INJ 100 ML IV SCH ×7 (02:53→22:18)
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
[2016-03-02] MEDS: MIDAZOLAM 100 MG/ML INJ 100 ML IV SCH ×2 (06:29→15:51)
[2016-03-02] MEDS: fentaNYL DRIP 250 ML IV SCH (06:29)
[2016-03-02] MEDS: CHLORHEXIDINE 0.12% (ORAL KIT) 15 ML CUP MT SCH ×2 (08:00→20:23)
[2016-03-02 08:12] LABS: BACTERIA, URINE RARE /hpf; BLOOD, URINE NEG (NEG); COMMENT (UR) CATH-CULTURE IND; CULTURE IF INDICATED CATH CULTURE IND; GLUCOSE,URINE NEG (NEG); HYALINE CAST, URINE 1 /lpf (RARE); KETONE, URINE NEG (NEG); MUCUS URINE FEW /lpf (OCC); NITRITE,URINE NEG (NEG)
[2016-03-02 08:16] LABS: URINE COLOR DARK-BROWN (YELLW/STRAW)
--- NOTE | 2016-03-02 08:51 | RADRPT ---
EXAM DATE/TIME: 03/02/2016 08:01 [facility] COMPARISON: CHEST SINGLE AP, March 01, 2016, 14:02. INDICATIONS : Short of breath. MEDICAL HISTORY : None. SURGICAL HISTORY : None. ENCOUNTER: Subsequent ACUITY: 2 weeks PAIN SCORE: Non-responsive. LOCATION: Bilateral chest FINDINGS: Tracheostomy in place. Left subclavian catheter tip projects over the mid superior vena cava. Patch y partially consolidative infiltrates in the central lower lungs bilaterally and dense consolidation in the left lower lung is similar in appearance to prior examination. Hazy opacity in the lower left chest suggests possible pleural effusion. CONCLUSION: Scattered bilateral infiltrates and left lower lobe consolidation and possible left pleural effusion, stable from prior. Ba Caraballo MD on March 02, 2016 at 8:47 Board Certified Radiologist. This report was verified electronically.
[2016-03-02 08:59] LABS: BASOPHIL # 0.1 TH/MM3 (0-0.2); BASOPHIL % 0.7 % (0.0-2.0); EOSINOPHIL # 0.3 TH/MM3 (0-0.4); HEMATOCRIT 24.6 % (39.0-51.0); LYMPH % 11.6 % (9.0-44.0); LYMPHOCYTE # 1.7 TH/MM3 (1.0-4.8); MEAN CELL VOLUME 94.4 FL (80.0-100.0); MEAN CORPUSCULAR HEMOGLOBIN 30.5 PG (27.0-34.0); MEAN CORPUSCULAR HGB CONC 32.3 % (32.0-36.0); NEUT % 74.7 % (16.0-70.0); PLATELET COUNT 527 TH/MM3 (150-450); RED BLOOD COUNT 2.61 MIL/MM3 (4.50-5.90); RED CELL DISTRIBUTION WIDTH 15.8 % (11.6-17.2); WHITE BLOOD COUNT 14.7 TH/MM3 (4.0-11.0)
[2016-03-02] MEDS: POLYETHYLENE GLYCOL 17 GM PKG PEG SCH ×3 (09:00→20:23)
[2016-03-02] MEDS: SODIUM CHLORIDE 0.9% FLUSH 5 ML FLUSH IVF SCH ×2 (09:00→20:24)
[2016-03-02] MEDS: LACTULOSE SYRUP 20 GM/30 ML CUP PEG SCH ×3 (09:00→20:23)
[2016-03-02 09:03] LABS: HEMO FLAGS AUTO DIFF
[2016-03-02] MEDS: FUROSEMIDE 40 MG/4 ML VIAL IV PUSH SCH (09:09)
[2016-03-02] MEDS: DOCUSATE SODIUM 100 MG/10 ML UDC NG SCH ×2 (09:09→20:23)
[2016-03-02] MEDS: RANITIDINE HCL SYRUP 150 MG/10 ML UDC PO SCH ×2 (09:09→20:23)
[2016-03-02] MEDS: METOCLOPRAMIDE HCL 10 MG/2 ML VIAL IV SCH ×2 (09:09→15:56)
[2016-03-02] MEDS: levETIRAcetam 500 MG/5 ML UDC TUBE SCH ×2 (09:09→20:23)
[2016-03-02] MEDS: cefTRIAXone INJ 2,000 MG in SODIUM CHLORIDE 0.9% INJ 100 ML IV SCH (09:10)
[2016-03-02 09:15] LABS: ANION GAP 9 MEQ/L (5-15); AST (GOT) 34 U/L (15-37); BICARBONATE 26.4 MEQ/L (21.0-32.0); BLOOD UREA NITROGEN 16 MG/DL (7-18); CHLORIDE 113 MEQ/L (98-107); GLOMERULAR FILTRATION RATE 124 ML/MIN (>89); POTASSIUM 3.6 MEQ/L (3.5-5.1); SODIUM (NA) 148 MEQ/L (136-145)
[2016-03-02 09:18] LABS: ALKALINE PHOSPHATASE 308 U/L (45-117); ALT (GPT) 38 U/L (12-78); TOTAL BILIRUBIN ADULT 1.6 MG/DL (0.2-1.0)
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
[2016-03-02 09:41] LABS: BASOPHILS 1 % (0-2); CORRECTED NUCLEATED RBC 2 /100 WBC (0-0); EOSINOPHILS 1 % (0-4); NEUTROPHIL # MANUAL DIFF 11.3 TH/MM3 (1.8-7.7); PLATELET ESTIMATE SMEAR HIGH (NORMAL); PLATELET MORPHOLOGY NORMAL (NORMAL); POLYS (SEG NEUTROPHILS) 77 % (16-70); SCAN/DIFF FINAL DIFF MANUAL; WBC DIFF SAMPLE 100
[2016-03-02] MEDS: RESP: ALBUTEROL 2.5 MG/IPRATROPIUM 0.5 MG NEB (PRN) INH (10:54)
[2016-03-02] MEDS ORDERED: NOREPINEPHRINE 4 MG/4 ML AMP ONE (15:36)
[2016-03-02] MEDS: NOREPINEPHRINE INJ 4 MG in SODIUM CHLOR 0.9% 250 ML INJ 246 ML IV SCH (16:37)
[2016-03-03] VITALS (19 sets, daily range): BP systolic 104–160; BP diastolic 66–104; PULSE 68–97; RESP 20–27; TEMP 96.4–99; O2SAT 93–98
[2016-03-03] MEDS: METOCLOPRAMIDE HCL 10 MG/2 ML VIAL IV SCH ×3 (00:40→15:31)
[2016-03-03] MEDS: PROPOFOL 1000 MG/100 ML INJ 100 ML IV SCH ×8 (01:07→22:46)
[2016-03-03] MEDS: MIDAZOLAM 100 MG/ML INJ 100 ML IV SCH ×2 (03:32→15:31)
[2016-03-03] MEDS: CHLORHEXIDINE GLUCONATE 2 % 1 PACK (2 CLOTHS) TOP SCH (04:00)
[2016-03-03 05:35] LABS: AUTOMATED NEUTROPHIL # 8.8 TH/MM3 (1.8-7.7); BASOPHIL # 0.1 TH/MM3 (0-0.2); EOSINOPHIL # 0.4 TH/MM3 (0-0.4); EOSINOPHIL % 3.4 % (0.0-4.0); HEMATOCRIT 24.5 % (39.0-51.0); LYMPH % 11.4 % (9.0-44.0); LYMPHOCYTE # 1.4 TH/MM3 (1.0-4.8); MEAN CELL VOLUME 94.4 FL (80.0-100.0); MEAN CORPUSCULAR HEMOGLOBIN 30.3 PG (27.0-34.0); MEAN CORPUSCULAR HGB CONC 32.1 % (32.0-36.0); MONO % 11.2 % (0.0-8.0); PLATELET COUNT 590 TH/MM3 (150-450); RED CELL DISTRIBUTION WIDTH 15.8 % (11.6-17.2); WHITE BLOOD COUNT 12.1 TH/MM3 (4.0-11.0)
[2016-03-03 05:38] LABS: HEMO FLAGS AUTO DIFF
[2016-03-03] MEDS: INSULIN ASPART SUPPLEMENTAL SCALE SQ SCH ×4 (05:41→17:15)
[2016-03-03 06:05] LABS: ALT (GPT) 34 U/L (12-78); ANION GAP 7 MEQ/L (5-15); AST (GOT) 28 U/L (15-37); BLOOD UREA NITROGEN 16 MG/DL (7-18); CHLORIDE 113 MEQ/L (98-107); GLOMERULAR FILTRATION RATE 150 ML/MIN (>89); POTASSIUM 3.4 MEQ/L (3.5-5.1); SODIUM (NA) 146 MEQ/L (136-145)
[2016-03-03 06:07] LABS: ALKALINE PHOSPHATASE 313 U/L (45-117); TOTAL BILIRUBIN ADULT 1.4 MG/DL (0.2-1.0)
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
[2016-03-03 08:42] LABS: BANDS 8 % (0-6); MYELOCYTES 1 % (0-0); NEUTROPHIL # MANUAL DIFF 9.3 TH/MM3 (1.8-7.7); POLYS (SEG NEUTROPHILS) 68 % (16-70); WBC DIFF SAMPLE 100
[2016-03-03 08:43] LABS: HYPOCHROMIA 2+ (NORMAL); MICROCYTOSIS 1+ (NORMAL); PLATELET ESTIMATE SMEAR HIGH (NORMAL); PLATELET MORPHOLOGY NORMAL (NORMAL); SCAN/DIFF FINAL DIFF MANUAL
[2016-03-03] MEDS: SODIUM CHLORIDE 0.9% FLUSH 5 ML FLUSH IVF SCH ×2 (08:54→20:01)
[2016-03-03] MEDS: FUROSEMIDE 40 MG/4 ML VIAL IV PUSH SCH (08:54)
[2016-03-03] MEDS: CHLORHEXIDINE 0.12% (ORAL KIT) 15 ML CUP MT SCH ×2 (08:54→20:00)
[2016-03-03] MEDS: LACTULOSE SYRUP 20 GM/30 ML CUP PEG SCH ×2 (08:54→20:00)
[2016-03-03] MEDS: cefTRIAXone INJ 2,000 MG in SODIUM CHLORIDE 0.9% INJ 100 ML IV SCH (08:54)
[2016-03-03] MEDS: DOCUSATE SODIUM 100 MG/10 ML UDC NG SCH ×2 (08:55→20:00)
[2016-03-03] MEDS: levETIRAcetam 500 MG/5 ML UDC TUBE SCH ×2 (08:55→20:00)
[2016-03-03] MEDS: RANITIDINE HCL SYRUP 150 MG/10 ML UDC PO SCH ×2 (08:55→20:00)
[2016-03-03] MEDS: POLYETHYLENE GLYCOL 17 GM PKG PEG SCH ×2 (08:55→20:00)
[2016-03-03] MEDS: POTASSIUM CL 40 MEQ/30 ML LIQ UDC PO/TUBE PRN (09:31)
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
[2016-03-03] MEDS: NOREPINEPHRINE INJ 4 MG in SODIUM CHLOR 0.9% 250 ML INJ 246 ML IV SCH (15:31)
[2016-03-03 21:01] LABS: MEAN CORPUSCULAR HGB CONC 30.5 % (32.0-36.0)
[2016-03-04] VITALS (20 sets, daily range): BP systolic 118–164; BP diastolic 79–97; PULSE 83–99; RESP 24–27; TEMP 98.2–100.4; O2SAT 94–100
[2016-03-04] MEDS: METOCLOPRAMIDE HCL 10 MG/2 ML VIAL IV SCH ×3 (00:40→15:21)
[2016-03-04] MEDS: INSULIN ASPART SUPPLEMENTAL SCALE SQ SCH ×4 (00:40→18:29)
[2016-03-04] MEDS: PROPOFOL 1000 MG/100 ML INJ 100 ML IV SCH ×5 (02:15→21:47)
[2016-03-04] MEDS: CHLORHEXIDINE GLUCONATE 2 % 1 PACK (2 CLOTHS) TOP SCH (03:14)
[2016-03-04] MEDS: MIDAZOLAM 100 MG/ML INJ 100 ML IV SCH ×2 (03:55→21:47)
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
[2016-03-04 06:24] LABS: AUTOMATED NEUTROPHIL # 10.9 TH/MM3 (1.8-7.7); BASOPHIL # 0.1 TH/MM3 (0-0.2); BASOPHIL % 0.7 % (0.0-2.0); EOSINOPHIL # 0.2 TH/MM3 (0-0.4); EOSINOPHIL % 1.6 % (0.0-4.0); HEMATOCRIT 27.7 % (39.0-51.0); LYMPH % 10.1 % (9.0-44.0); LYMPHOCYTE # 1.4 TH/MM3 (1.0-4.8); MEAN CELL VOLUME 94.9 FL (80.0-100.0); MEAN CORPUSCULAR HEMOGLOBIN 28.9 PG (27.0-34.0); MONO % 9.7 % (0.0-8.0); NEUT % 77.9 % (16.0-70.0); PLATELET COUNT 755 TH/MM3 (150-450); RED BLOOD COUNT 2.92 MIL/MM3 (4.50-5.90); RED CELL DISTRIBUTION WIDTH 15.5 % (11.6-17.2)
[2016-03-04 06:30] LABS: HEMO FLAGS AUTO DIFF
[2016-03-04 07:15] LABS: BANDS 2 % (0-6); EOSINOPHILS 3 % (0-4); METAMYELOCYTES 3 % (0-1); MYELOCYTES 3 % (0-0); NEUTROPHIL # MANUAL DIFF 11.9 TH/MM3 (1.8-7.7); PLATELET ESTIMATE SMEAR HIGH (NORMAL); PLATELET MORPHOLOGY NORMAL (NORMAL); POLYS (SEG NEUTROPHILS) 77 % (16-70); WBC DIFF SAMPLE 100
[2016-03-04 07:16] LABS: POLYCHROMASIA 2.3 % (0.0-1.9)
[2016-03-04 07:17] LABS: ALKALINE PHOSPHATASE 290 U/L (45-117); ALT (GPT) 30 U/L (12-78); ANION GAP 10 MEQ/L (5-15); AST (GOT) 21 U/L (15-37); BICARBONATE 27.6 MEQ/L (21.0-32.0); BLOOD UREA NITROGEN 13 MG/DL (7-18); CHLORIDE 109 MEQ/L (98-107); GLOMERULAR FILTRATION RATE 142 ML/MIN (>89); POTASSIUM 3.8 MEQ/L (3.5-5.1); SCAN/DIFF FINAL DIFF MANUAL; SODIUM (NA) 147 MEQ/L (136-145)
[2016-03-04] MEDS: DOCUSATE SODIUM 100 MG/10 ML UDC NG SCH ×2 (08:06→21:00)
[2016-03-04] MEDS: RANITIDINE HCL SYRUP 150 MG/10 ML UDC PO SCH ×2 (08:06→21:46)
[2016-03-04] MEDS: SODIUM CHLORIDE 0.9% FLUSH 5 ML FLUSH IVF SCH ×2 (08:06→21:00)
[2016-03-04] MEDS: cefTRIAXone INJ 2,000 MG in SODIUM CHLORIDE 0.9% INJ 100 ML IV SCH (08:06)
[2016-03-04] MEDS: levETIRAcetam 500 MG/5 ML UDC TUBE SCH ×2 (08:06→21:46)
[2016-03-04] MEDS: CHLORHEXIDINE 0.12% (ORAL KIT) 15 ML CUP MT SCH ×2 (08:07→21:45)
[2016-03-04] MEDS: LACTULOSE SYRUP 20 GM/30 ML CUP PEG SCH ×2 (08:35→21:00)
[2016-03-04] MEDS: POLYETHYLENE GLYCOL 17 GM PKG PEG SCH ×2 (08:35→21:00)
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
[2016-03-04] MEDS: SODIUM CHLORIDE 0.9% FLUSH 5 ML FLUSH IVF PRN ×5 (13:19→17:14)
[2016-03-04] MEDS: LABETALOL HCL 100 MG/20 ML VIAL IV PUSH PRN ×4 (14:27→21:48)
[2016-03-04] MEDS: hydrALAZINE HCL 20 MG/ML VIAL IV PUSH PRN (17:13)
[2016-03-04] MEDS: LORazepam 2 MG/ML VIAL IV PRN (18:29)
[2016-03-04] MEDS: fentaNYL DRIP 250 ML IV SCH (21:48)
[2016-03-05] VITALS (17 sets, daily range): BP systolic 124–179; BP diastolic 83–104; PULSE 75–106; RESP 20–34; TEMP 98.2–101.8; O2SAT 94–98
[2016-03-05] MEDS: PROPOFOL 1000 MG/100 ML INJ 100 ML IV SCH ×5 (00:39→23:21)
[2016-03-05] MEDS: CHLORHEXIDINE GLUCONATE 2 % 1 PACK (2 CLOTHS) TOP SCH (04:00)
[2016-03-05] MEDS: INSULIN ASPART SUPPLEMENTAL SCALE SQ SCH ×4 (05:13→18:06)
[2016-03-05] MEDS: CHLORHEXIDINE 0.12% (ORAL KIT) 15 ML CUP MT SCH ×2 (08:04→21:33)
[2016-03-05] MEDS: METOCLOPRAMIDE HCL 10 MG/2 ML VIAL IV SCH ×4 (08:04→23:21)
[2016-03-05] MEDS: cefTRIAXone INJ 2,000 MG in SODIUM CHLORIDE 0.9% INJ 100 ML IV SCH (08:05)
[2016-03-05] MEDS: RANITIDINE HCL SYRUP 150 MG/10 ML UDC PO SCH ×2 (08:05→21:12)
[2016-03-05] MEDS: DOCUSATE SODIUM 100 MG/10 ML UDC NG SCH ×2 (08:05→21:12)
[2016-03-05] MEDS: levETIRAcetam 500 MG/5 ML UDC TUBE SCH ×2 (08:05→21:12)
[2016-03-05] MEDS: LABETALOL HCL 100 MG/20 ML VIAL IV PUSH PRN ×3 (08:05→17:52)
[2016-03-05] MEDS: LACTULOSE SYRUP 20 GM/30 ML CUP PEG SCH ×2 (09:00→21:33)
[2016-03-05] MEDS: SODIUM CHLORIDE 0.9% FLUSH 5 ML FLUSH IVF SCH ×2 (09:00→21:00)
[2016-03-05] MEDS: POLYETHYLENE GLYCOL 17 GM PKG PEG SCH ×2 (09:00→21:12)
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
[2016-03-05] MEDS: hydrALAZINE HCL 20 MG/ML VIAL IV PUSH PRN ×2 (09:09→14:13)
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
[2016-03-05 11:16] LABS: AUTOMATED NEUTROPHIL # 8.7 TH/MM3 (1.8-7.7); BASOPHIL # 0.1 TH/MM3 (0-0.2); BASOPHIL % 0.7 % (0.0-2.0); EOSINOPHIL # 0.2 TH/MM3 (0-0.4); EOSINOPHIL % 1.5 % (0.0-4.0); HEMATOCRIT 27.4 % (39.0-51.0); LYMPH % 12.7 % (9.0-44.0); LYMPHOCYTE # 1.5 TH/MM3 (1.0-4.8); MEAN CELL VOLUME 93.8 FL (80.0-100.0); MEAN CORPUSCULAR HEMOGLOBIN 29.7 PG (27.0-34.0); MEAN CORPUSCULAR HGB CONC 31.7 % (32.0-36.0); MONO % 10.6 % (0.0-8.0); NEUT % 74.5 % (16.0-70.0); PLATELET COUNT 752 TH/MM3 (150-450); RED BLOOD COUNT 2.92 MIL/MM3 (4.50-5.90); RED CELL DISTRIBUTION WIDTH 15.1 % (11.6-17.2); WHITE BLOOD COUNT 11.7 TH/MM3 (4.0-11.0)
[2016-03-05 11:22] LABS: HEMO FLAGS AUTO DIFF
[2016-03-05] MEDS: ACETAMINOPHEN 325 MG TAB PO PRN (11:54)
[2016-03-05 12:12] LABS: BANDS 9 % (0-6); CORRECTED NUCLEATED RBC 1 /100 WBC (0-0); HYPOCHROMIA 1+ (NORMAL); METAMYELOCYTES 1 % (0-1); MICROCYTOSIS 1+ (NORMAL); NEUTROPHIL # MANUAL DIFF 8.8 TH/MM3 (1.8-7.7); PLATELET ESTIMATE SMEAR HIGH (NORMAL); PLATELET MORPHOLOGY NORMAL (NORMAL); POLYS (SEG NEUTROPHILS) 65 % (16-70); SCAN/DIFF FINAL DIFF MANUAL; WBC DIFF SAMPLE 100
[2016-03-05 12:21] LABS: ALKALINE PHOSPHATASE 316 U/L (45-117); ALT (GPT) 26 U/L (12-78); ANION GAP 7 MEQ/L (5-15); AST (GOT) 22 U/L (15-37); BICARBONATE 28.8 MEQ/L (21.0-32.0); BLOOD UREA NITROGEN 17 MG/DL (7-18); CHLORIDE 105 MEQ/L (98-107); GLOMERULAR FILTRATION RATE 124 ML/MIN (>89); POTASSIUM 3.9 MEQ/L (3.5-5.1); SODIUM (NA) 141 MEQ/L (136-145); TOTAL BILIRUBIN ADULT 1.1 MG/DL (0.2-1.0)
[2016-03-05] MEDS: METOPROLOL TARTRATE 25 MG TAB PEG SCH ×2 (16:20→21:12)
[2016-03-05] MEDS: cloNIDine HCL 0.2 MG/24 HR PATCH TD SCH (16:30)
[2016-03-05] MEDS: fentaNYL DRIP 250 ML IV SCH (23:21)
[2016-03-06] VITALS (18 sets, daily range): BP systolic 119–180; BP diastolic 64–104; PULSE 72–100; RESP 20–22; TEMP 99.1–102; O2SAT 95–100
[2016-03-06] MEDS: INSULIN ASPART SUPPLEMENTAL SCALE SQ SCH ×4 (00:37→16:44)
[2016-03-06] MEDS: CHLORHEXIDINE GLUCONATE 2 % 1 PACK (2 CLOTHS) TOP SCH (04:00)
[2016-03-06] MEDS: PROPOFOL 1000 MG/100 ML INJ 100 ML IV SCH ×4 (05:42→20:20)
[2016-03-06] MEDS: METOPROLOL TARTRATE 25 MG TAB PEG SCH ×3 (05:42→21:02)
[2016-03-06] MEDS: LABETALOL HCL 100 MG/20 ML VIAL IV PUSH PRN ×3 (08:07→19:49)
[2016-03-06] MEDS: cefTRIAXone INJ 2,000 MG in SODIUM CHLORIDE 0.9% INJ 100 ML IV SCH (08:44)
[2016-03-06] MEDS: METOCLOPRAMIDE HCL 10 MG/2 ML VIAL IV SCH ×2 (08:44→16:46)
[2016-03-06] MEDS: SODIUM CHLORIDE 0.9% FLUSH 5 ML FLUSH IVF SCH ×2 (08:44→20:04)
[2016-03-06] MEDS: levETIRAcetam 500 MG/5 ML UDC TUBE SCH ×2 (08:44→20:03)
[2016-03-06] MEDS: RANITIDINE HCL SYRUP 150 MG/10 ML UDC PO SCH ×2 (08:45→20:03)
[2016-03-06] MEDS: hydrALAZINE HCL 20 MG/ML VIAL IV PUSH PRN (08:45)
[2016-03-06] MEDS: CHLORHEXIDINE 0.12% (ORAL KIT) 15 ML CUP MT SCH ×2 (08:45→19:48)
[2016-03-06] MEDS: DOCUSATE SODIUM 100 MG/10 ML UDC NG SCH ×2 (09:00→20:03)
[2016-03-06] MEDS: LACTULOSE SYRUP 20 GM/30 ML CUP PEG SCH ×2 (09:00→20:03)
[2016-03-06] MEDS: POLYETHYLENE GLYCOL 17 GM PKG PEG SCH ×2 (09:00→20:03)
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
[2016-03-06] MEDS ORDERED: chlordiazePOXIDE 25 MG CAP PO SCH (11:00)
[2016-03-06] MEDS: ACETAMINOPHEN 325 MG TAB PO PRN (11:19)
[2016-03-06] MEDS: METHADONE HCL 10 MG/10 ML ORAL SOLUTION PO SCH ×2 (11:19→20:03)
--- NOTE | 2016-03-06 15:35 | RADRPT ---
EXAM DATE/TIME: 03/06/2016 15:22 [facility] COMPARISON: CHEST SINGLE AP, March 02, 2016, 8:01. INDICATIONS : Picc line placement. MEDICAL HISTORY : None. SURGICAL HISTORY : None. ENCOUNTER: Subsequent ACUITY: 1 day PAIN SCORE: Non-responsive. LOCATION: chest FINDINGS: Tracheostomy remains in place as well as left subclavian venous catheter and stable bilateral pulmona ry opacities. There is placement of a right PICC line terminating Spear vena cava. CONCLUSION: Right PICC line terminates in the superior vena cava Laci Rodriguez MD on March 06, 2016 at 15:32 Board Certified Radiologist. This report was verified electronically.
[2016-03-06] MEDS: chlordiazePOXIDE 25 MG CAP PO SCH (19:48)
[2016-03-07] VITALS (18 sets, daily range): BP systolic 121–166; BP diastolic 67–90; PULSE 74–100; RESP 20–23; TEMP 98.8–100.2; O2SAT 96–100
[2016-03-07] MEDS: PROPOFOL 1000 MG/100 ML INJ 100 ML IV SCH ×3 (00:09→09:51)
[2016-03-07] MEDS: METOCLOPRAMIDE HCL 10 MG/2 ML VIAL IV SCH ×3 (00:09→16:00)
[2016-03-07] MEDS: chlordiazePOXIDE 25 MG CAP PO SCH ×3 (04:17→20:52)
[2016-03-07] MEDS: INSULIN ASPART SUPPLEMENTAL SCALE SQ SCH ×4 (05:59→16:00)
[2016-03-07] MEDS: CHLORHEXIDINE GLUCONATE 2 % 1 PACK (2 CLOTHS) TOP SCH (06:00)
[2016-03-07] MEDS: METOPROLOL TARTRATE 25 MG TAB PEG SCH ×3 (06:03→20:52)
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
[2016-03-07] MEDS ORDERED: FUROSEMIDE 40 MG/4 ML VIAL IV PUSH ONE (08:00)
[2016-03-07] MEDS ORDERED: POTASSIUM CL 40 MEQ/30 ML LIQ UDC TUBE ONE (08:00)
[2016-03-07] MEDS: levETIRAcetam 500 MG/5 ML UDC TUBE SCH ×2 (08:31→20:53)
[2016-03-07] MEDS: DOCUSATE SODIUM 100 MG/10 ML UDC NG SCH ×2 (08:31→20:53)
[2016-03-07] MEDS: METHADONE HCL 10 MG/10 ML ORAL SOLUTION PO SCH ×2 (08:31→20:52)
[2016-03-07] MEDS: cefTRIAXone INJ 2,000 MG in SODIUM CHLORIDE 0.9% INJ 100 ML IV SCH (08:32)
[2016-03-07] MEDS: RANITIDINE HCL SYRUP 150 MG/10 ML UDC PO SCH ×2 (08:32→20:53)
[2016-03-07] MEDS: CHLORHEXIDINE 0.12% (ORAL KIT) 15 ML CUP MT SCH ×2 (08:33→20:53)
[2016-03-07] MEDS: SODIUM CHLORIDE 0.9% FLUSH 5 ML FLUSH IVF SCH ×2 (08:33→20:53)
[2016-03-07] MEDS: ENOXAPARIN SODIUM 30 MG/0.3 ML SYRINGE SQ SCH ×2 (09:51→20:54)
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
[2016-03-07] MEDS: LABETALOL HCL 100 MG/20 ML VIAL IV PUSH PRN (14:41)
[2016-03-08] VITALS (19 sets, daily range): BP systolic 121–170; BP diastolic 66–96; PULSE 75–93; RESP 17–20; TEMP 98.4–99.9; O2SAT 94–100
[2016-03-08] MEDS: METOCLOPRAMIDE HCL 10 MG/2 ML VIAL IV SCH ×4 (01:06→23:08)
[2016-03-08] MEDS: INSULIN ASPART SUPPLEMENTAL SCALE SQ SCH ×5 (01:07→23:08)
[2016-03-08 03:59] LABS: AUTOMATED NEUTROPHIL # 8.9 TH/MM3 (1.8-7.7); BASOPHIL # 0.1 TH/MM3 (0-0.2); EOSINOPHIL # 0.2 TH/MM3 (0-0.4); EOSINOPHIL % 1.8 % (0.0-4.0); HEMATOCRIT 27.3 % (39.0-51.0); LYMPH % 13.2 % (9.0-44.0); LYMPHOCYTE # 1.6 TH/MM3 (1.0-4.8); MEAN CELL VOLUME 92.3 FL (80.0-100.0); MEAN CORPUSCULAR HGB CONC 31.5 % (32.0-36.0); MONO % 12.6 % (0.0-8.0); NEUT % 71.4 % (16.0-70.0); PLATELET COUNT 722 TH/MM3 (150-450); RED BLOOD COUNT 2.96 MIL/MM3 (4.50-5.90); WHITE BLOOD COUNT 12.4 TH/MM3 (4.0-11.0)
[2016-03-08 04:03] LABS: HEMO FLAGS AUTO DIFF
[2016-03-08 04:18] LABS: BICARBONATE 32.4 MEQ/L (21.0-32.0); POTASSIUM 3.7 MEQ/L (3.5-5.1)
[2016-03-08] MEDS: CHLORHEXIDINE GLUCONATE 2 % 1 PACK (2 CLOTHS) TOP SCH (04:30)
[2016-03-08] MEDS: chlordiazePOXIDE 25 MG CAP PO SCH ×3 (04:30→19:49)
[2016-03-08 05:18] LABS: HYPOCHROMIA 1+ (NORMAL); MICROCYTOSIS 1+ (NORMAL)
[2016-03-08 05:19] LABS: PLATELET MORPHOLOGY NORMAL (NORMAL); SCAN/DIFF AUTO DIFF CONFIRMED; STOMATOCYTES 1+ (NORMAL)
[2016-03-08 05:20] LABS: PLATELET ESTIMATE SMEAR HIGH (NORMAL)
[2016-03-08] MEDS: METOPROLOL TARTRATE 25 MG TAB PEG SCH ×3 (06:26→19:50)
[2016-03-08] MEDS: LABETALOL HCL 100 MG/20 ML VIAL IV PUSH PRN ×2 (07:41→17:21)
[2016-03-08] MEDS: RANITIDINE HCL SYRUP 150 MG/10 ML UDC PO SCH ×2 (07:48→19:49)
[2016-03-08] MEDS: levETIRAcetam 500 MG/5 ML UDC TUBE SCH ×2 (07:48→19:49)
[2016-03-08] MEDS: METHADONE HCL 10 MG/10 ML ORAL SOLUTION PO SCH ×2 (07:48→19:49)
[2016-03-08] MEDS: cefTRIAXone INJ 2,000 MG in SODIUM CHLORIDE 0.9% INJ 100 ML IV SCH (07:49)
[2016-03-08] MEDS: ENOXAPARIN SODIUM 30 MG/0.3 ML SYRINGE SQ SCH ×2 (07:49→19:49)
[2016-03-08] MEDS: DOCUSATE SODIUM 100 MG/10 ML UDC NG SCH ×2 (07:49→19:50)
[2016-03-08] MEDS: SODIUM CHLORIDE 0.9% FLUSH 5 ML FLUSH IVF SCH ×2 (07:49→19:50)
[2016-03-08] MEDS: CHLORHEXIDINE 0.12% (ORAL KIT) 15 ML CUP MT SCH ×2 (07:49→19:50)
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
[2016-03-08] MEDS: hydrALAZINE HCL 20 MG/ML VIAL IV PUSH PRN ×2 (10:41→18:29)
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
[2016-03-09] VITALS (20 sets, daily range): BP systolic 122–169; BP diastolic 65–91; PULSE 80–96; RESP 15–26; TEMP 98.8–100.2; O2SAT 93–100
[2016-03-09] MEDS: METOPROLOL TARTRATE 25 MG TAB PEG SCH ×3 (02:00→13:43)
[2016-03-09] MEDS: chlordiazePOXIDE 25 MG CAP PO SCH ×2 (04:00→11:38)
[2016-03-09] MEDS: CHLORHEXIDINE GLUCONATE 2 % 1 PACK (2 CLOTHS) TOP SCH (04:00)
[2016-03-09] MEDS ORDERED: EPINEPHrine HCL (1:10,000) 1 MG/10 ML SYRINGE ONE (04:09)
[2016-03-09] MEDS ORDERED: LIDOCAINE HCL 2% 100 MG/5 ML SYRINGE ONE (04:09)
[2016-03-09] MEDS ORDERED: ATROPINE SULFATE 1 MG/10 ML SYRINGE ONE (04:09)
--- NOTE | 2016-03-09 04:39 | RADRPT ---
EXAM DATE/TIME: 03/09/2016 04:21 [facility] COMPARISON: CT BRAIN W/O CONTRAST, March 04, 2016, 4:21. INDICATIONS : Follow up hemorrhage. RADIATION DOSE: 56.35 CTDIvol (mGy) MEDICAL HISTORY : None SURGICAL HISTORY : Craniotomy. ENCOUNTER: Subsequent ACUITY: 3 weeks PAIN SCALE: Non-responsive LOCATION: cranial TECHNIQUE: Multiple contiguous axial images were obtained of the head. Using automated exposure control and adj ustment of the mA and/or kV according to patient size, radiation dose was kept as low as reasonably a chievable to obtain optimal diagnostic quality images. FINDINGS: Today's exam is compared to the prior study. The ventricular catheter remains in place. The left cran iotomy is unchanged. No focal or acute intracranial hemorrhage is seen. The ventricles are stable and within normal limits for size. There continues to be edema in the left cervical hemisphere which is mildly improved compared to the prior study.. No significant midline shift is seen. No change in the postsurgical right occipital craniotomy. The midbrain is unremarkable. No change involving the left f rontal and left upper lobe infarct. CONCLUSION: 1. Mild improvement of the cerebral edema in the left cerebral hemisphere. 2. Otherwise, no other new or significant changes. Alli Jj MD on March 09, 2016 at 4:34 Board Certified Radiologist. This report was verified electronically.
[2016-03-09 04:58] LABS: BICARBONATE 32.3 MEQ/L (21.0-32.0); POTASSIUM 3.7 MEQ/L (3.5-5.1)
[2016-03-09] MEDS: INSULIN ASPART SUPPLEMENTAL SCALE SQ SCH ×3 (06:00→18:00)
[2016-03-09] MEDS: ENOXAPARIN SODIUM 30 MG/0.3 ML SYRINGE SQ SCH ×2 (08:39→19:46)
[2016-03-09] MEDS: RANITIDINE HCL SYRUP 150 MG/10 ML UDC PO SCH ×2 (08:39→19:46)
[2016-03-09] MEDS: DOCUSATE SODIUM 100 MG/10 ML UDC NG SCH ×2 (08:39→19:46)
[2016-03-09] MEDS: levETIRAcetam 500 MG/5 ML UDC TUBE SCH ×2 (08:39→19:47)
[2016-03-09] MEDS: METOCLOPRAMIDE HCL 10 MG/2 ML VIAL IV SCH ×3 (08:40→22:36)
[2016-03-09] MEDS: METHADONE HCL 10 MG/10 ML ORAL SOLUTION PO SCH ×2 (08:40→19:46)
[2016-03-09] MEDS: CHLORHEXIDINE 0.12% (ORAL KIT) 15 ML CUP MT SCH ×2 (08:41→19:47)
[2016-03-09] MEDS: SODIUM CHLORIDE 0.9% FLUSH 5 ML FLUSH IVF SCH ×2 (08:41→19:47)
[2016-03-09] MEDS: cefTRIAXone INJ 2,000 MG in SODIUM CHLORIDE 0.9% INJ 100 ML IV SCH (08:41)
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
[2016-03-09] MEDS ORDERED: FUROSEMIDE 40 MG/4 ML VIAL IV PUSH ONE (15:00)
[2016-03-09] MEDS ORDERED: POTASSIUM CL 40 MEQ/30 ML LIQ UDC TUBE ONE (15:00)
[2016-03-09] MEDS: METOPROLOL TARTRATE 50 MG TAB PEG SCH (22:36)
[2016-03-10] VITALS (18 sets, daily range): BP systolic 127–156; BP diastolic 68–85; PULSE 69–105; RESP 15–22; TEMP 98.4–99.5; O2SAT 93–98
[2016-03-10] MEDS: CHLORHEXIDINE GLUCONATE 2 % 1 PACK (2 CLOTHS) TOP SCH (00:17)
[2016-03-10] MEDS: chlordiazePOXIDE 25 MG CAP PO SCH ×2 (00:17→12:19)
[2016-03-10 04:21] LABS: BICARBONATE 34.6 MEQ/L (21.0-32.0); POTASSIUM 3.7 MEQ/L (3.5-5.1)
[2016-03-10] MEDS: METOPROLOL TARTRATE 50 MG TAB PEG SCH ×3 (05:23→22:11)
[2016-03-10] MEDS: INSULIN ASPART SUPPLEMENTAL SCALE SQ SCH ×4 (05:23→18:00)
[2016-03-10] MEDS: METOCLOPRAMIDE HCL 10 MG/2 ML VIAL IV SCH ×3 (06:25→22:11)
--- NOTE | 2016-03-10 07:03 | RADRPT ---
EXAM DATE/TIME: 03/10/2016 05:45 [facility] COMPARISON: CHEST SINGLE AP, March 06, 2016, 15:22. INDICATIONS : Respiratory Failure MEDICAL HISTORY : None. SURGICAL HISTORY : None. ENCOUNTER: Subsequent ACUITY: 3 weeks PAIN SCORE: Non-responsive. LOCATION: Bilateral chest FINDINGS: The tracheostomy tube remains in place. There continues to be scattered bilateral pulmonary infiltrat es, right greater than left. This is not significantly changed compared to the prior study. The heart size is stable. No significant pleural effusions are seen. No definite pneumothorax is demonstrated. CONCLUSION: No significant change in the bilateral pulmonary infiltrates. Alli Jj MD on March 10, 2016 at 7:02 Board Certified Radiologist. This report was verified electronically.
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
[2016-03-10] MEDS ORDERED: oxyCODONE/ACETAMINOPHEN 5 MG/325 MG TAB PO PRN (07:45)
[2016-03-10] MEDS: levETIRAcetam 500 MG/5 ML UDC TUBE SCH ×2 (08:21→20:06)
[2016-03-10] MEDS: METHADONE HCL 10 MG/10 ML ORAL SOLUTION PO SCH ×2 (08:21→20:06)
[2016-03-10] MEDS: DOCUSATE SODIUM 100 MG/10 ML UDC NG SCH ×2 (08:21→20:06)
[2016-03-10] MEDS: RANITIDINE HCL SYRUP 150 MG/10 ML UDC PO SCH ×2 (08:22→20:06)
[2016-03-10] MEDS: ENOXAPARIN SODIUM 30 MG/0.3 ML SYRINGE SQ SCH ×2 (08:22→20:07)
[2016-03-10] MEDS: CHLORHEXIDINE 0.12% (ORAL KIT) 15 ML CUP MT SCH ×2 (08:23→20:07)
[2016-03-10] MEDS: SODIUM CHLORIDE 0.9% FLUSH 5 ML FLUSH IVF SCH ×2 (08:23→20:07)
[2016-03-11] VITALS (19 sets, daily range): BP systolic 125–151; BP diastolic 67–79; PULSE 65–100; RESP 14–26; TEMP 97.5–98.8; O2SAT 92–98
[2016-03-11] MEDS: INSULIN ASPART SUPPLEMENTAL SCALE SQ SCH ×4 (00:20→20:17)
[2016-03-11] MEDS: CHLORHEXIDINE GLUCONATE 2 % 1 PACK (2 CLOTHS) TOP SCH ×2 (00:20→23:51)
[2016-03-11] MEDS: chlordiazePOXIDE 25 MG CAP PO SCH ×3 (00:20→23:51)
[2016-03-11 04:52] LABS: AUTOMATED NEUTROPHIL # 7.3 TH/MM3 (1.8-7.7); BASOPHIL # 0.1 TH/MM3 (0-0.2); BASOPHIL % 0.8 % (0.0-2.0); EOSINOPHIL # 0.5 TH/MM3 (0-0.4); EOSINOPHIL % 4.3 % (0.0-4.0); HEMATOCRIT 29.6 % (39.0-51.0); HEMO FLAGS DIFF FINAL; LYMPH % 13.9 % (9.0-44.0); LYMPHOCYTE # 1.5 TH/MM3 (1.0-4.8); MEAN CORPUSCULAR HGB CONC 31.1 % (32.0-36.0); MONO % 13.1 % (0.0-8.0); NEUT % 67.9 % (16.0-70.0); PLATELET COUNT 613 TH/MM3 (150-450); RED BLOOD COUNT 3.18 MIL/MM3 (4.50-5.90); RED CELL DISTRIBUTION WIDTH 15.1 % (11.6-17.2); WHITE BLOOD COUNT 10.7 TH/MM3 (4.0-11.0)
[2016-03-11 05:19] LABS: BICARBONATE 33.8 MEQ/L (21.0-32.0); POTASSIUM 3.9 MEQ/L (3.5-5.1)
[2016-03-11] MEDS: METOPROLOL TARTRATE 50 MG TAB PEG SCH ×3 (05:32→20:16)
[2016-03-11] MEDS: METOCLOPRAMIDE HCL 10 MG/2 ML VIAL IV SCH ×3 (05:32→22:28)
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
[2016-03-11] MEDS: levETIRAcetam 500 MG/5 ML UDC TUBE SCH ×2 (08:34→20:16)
[2016-03-11] MEDS: ENOXAPARIN SODIUM 30 MG/0.3 ML SYRINGE SQ SCH ×2 (08:34→20:16)
[2016-03-11] MEDS: CHLORHEXIDINE 0.12% (ORAL KIT) 15 ML CUP MT SCH ×2 (08:35→20:17)
[2016-03-11] MEDS: SODIUM CHLORIDE 0.9% FLUSH 5 ML FLUSH IVF SCH ×2 (08:35→20:16)
[2016-03-11] MEDS: METHADONE HCL 10 MG/10 ML ORAL SOLUTION PO SCH ×2 (08:35→20:16)
[2016-03-11] MEDS: DOCUSATE SODIUM 100 MG/10 ML UDC NG SCH ×2 (08:35→20:16)
[2016-03-11] MEDS: RANITIDINE HCL SYRUP 150 MG/10 ML UDC PO SCH ×2 (08:35→20:16)
[2016-03-11 09:25] LABS: INDIRECT BILIRUBIN 0.2 MG/DL (0.0-0.8); MAGNESIUM 2.1 MG/DL (1.5-2.5); TOTAL BILIRUBIN ADULT 0.6 MG/DL (0.2-1.0)
[2016-03-11] MEDS: hydrALAZINE HCL 20 MG/ML VIAL IV PUSH PRN (17:42)
[2016-03-12] VITALS (18 sets, daily range): BP systolic 113–143; BP diastolic 59–80; PULSE 69–104; RESP 13–28; TEMP 98.8–99.3; O2SAT 90–99
[2016-03-12] MEDS: METOPROLOL TARTRATE 50 MG TAB PEG SCH ×3 (05:32→22:00)
[2016-03-12] MEDS: METOCLOPRAMIDE HCL 10 MG/2 ML VIAL IV SCH (05:32)
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
[2016-03-12] MEDS: CHLORHEXIDINE 0.12% (ORAL KIT) 15 ML CUP MT SCH ×2 (08:53→20:50)
[2016-03-12] MEDS: SODIUM CHLORIDE 0.9% FLUSH 5 ML FLUSH IVF SCH ×2 (09:00→20:50)
[2016-03-12] MEDS: DOCUSATE SODIUM 100 MG/10 ML UDC NG SCH ×2 (10:08→20:50)
[2016-03-12] MEDS: METHADONE HCL 10 MG/10 ML ORAL SOLUTION PO SCH ×2 (10:09→20:51)
[2016-03-12] MEDS: RANITIDINE HCL SYRUP 150 MG/10 ML UDC PO SCH ×2 (10:09→20:50)
[2016-03-12] MEDS: levETIRAcetam 500 MG/5 ML UDC TUBE SCH ×2 (10:10→20:50)
[2016-03-12] MEDS: ENOXAPARIN SODIUM 30 MG/0.3 ML SYRINGE SQ SCH ×2 (10:10→20:49)
[2016-03-12] MEDS: INSULIN ASPART SUPPLEMENTAL SCALE SQ SCH ×2 (10:26→20:49)
[2016-03-12] MEDS: chlordiazePOXIDE 25 MG CAP PO SCH (13:27)
[2016-03-12] MEDS ORDERED: REMOVE OLD PATCH TD SCH (16:00)
[2016-03-12] MEDS: cloNIDine HCL 0.2 MG/24 HR PATCH TD SCH (18:38)
[2016-03-12] MEDS: METOCLOPRAMIDE HCL SYRUP 10 MG/10 ML UDC PO SCH (20:50)
[2016-03-13] VITALS (21 sets, daily range): BP systolic 99–182; BP diastolic 57–97; PULSE 74–112; RESP 14–26; TEMP 98.8–99.5; O2SAT 96–99
[2016-03-13] MEDS: chlordiazePOXIDE 25 MG CAP PO SCH (00:08)
[2016-03-13] MEDS: CHLORHEXIDINE GLUCONATE 2 % 1 PACK (2 CLOTHS) TOP SCH (00:21)
[2016-03-13] MEDS: METOPROLOL TARTRATE 50 MG TAB PEG SCH ×3 (06:00→20:53)
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
[2016-03-13] MEDS ORDERED: MORPHINE SULFATE 4 MG/ML INJ IV PUSH PRN (08:45)
[2016-03-13] MEDS ORDERED: ACETAMINOPHEN/HYDROcodone 325 MG/5 MG TAB PO PRN ×2 (08:45)
[2016-03-13] MEDS ORDERED: LORazepam 2 MG/ML VIAL IV PUSH PRN ×2 (08:45)
[2016-03-13] MEDS: METOCLOPRAMIDE HCL SYRUP 10 MG/10 ML UDC PO SCH ×2 (08:52→20:52)
[2016-03-13] MEDS: levETIRAcetam 500 MG/5 ML UDC TUBE SCH ×2 (08:52→20:52)
[2016-03-13] MEDS: CHLORHEXIDINE 0.12% (ORAL KIT) 15 ML CUP MT SCH ×2 (08:52→20:54)
[2016-03-13] MEDS: DOCUSATE SODIUM 100 MG/10 ML UDC NG SCH ×2 (08:52→20:52)
[2016-03-13] MEDS: RANITIDINE HCL SYRUP 150 MG/10 ML UDC PO SCH ×2 (08:52→20:52)
[2016-03-13] MEDS: SODIUM CHLORIDE 0.9% FLUSH 5 ML FLUSH IVF SCH ×2 (08:53→20:54)
[2016-03-13] MEDS: ENOXAPARIN SODIUM 30 MG/0.3 ML SYRINGE SQ SCH ×2 (08:54→20:51)
[2016-03-13] MEDS: INSULIN ASPART SUPPLEMENTAL SCALE SQ SCH ×2 (09:14→21:01)
--- NOTE | 2016-03-13 13:16 | HHI.STRCON ---
Stroke Care Coordination Conf Multidiscplinary Team: PT, OT, ST, Nutrition, Nursing, Case Management Stroke: Hemorrhagic, Location Vital Signs: Stable GCS: 9 Respiratory: Vent, Other (Obtunded) VTE Prophylaxis: SCD's : Cuenca # of days (3), Strict u/o in ICU Date of Last Bowel Movement: Mar 12, 2016 GI: Bowel Regimen Nutrition: Tube feeding (Jevity 1.5 @ goal rate of 60ml/hr), PEG Tube PT: PROM OT: ROM (PROM) Assess for Rehab Services: Yes DC Plan/CM/SW Ins Concerns/Pay: Sub-acute Rehab (SNF) Leilani Guy Mar 13, 2016 13:16
[2016-03-13] MEDS: METHADONE HCL 10 MG/10 ML ORAL SOLUTION PO SCH ×2 (14:22→20:52)
[2016-03-13] MEDS: hydrALAZINE HCL 20 MG/ML VIAL IV PUSH PRN (22:45)
[2016-03-14] VITALS (16 sets, daily range): BP systolic 107–187; BP diastolic 62–104; PULSE 76–114; RESP 16–23; TEMP 98.2–100; O2SAT 94–98
--- NOTE | 2016-03-14 03:58 | RADRPT ---
EXAM DATE/TIME: 03/14/2016 03:00 [facility] COMPARISON: CHEST SINGLE AP, March 10, 2016, 5:45. INDICATIONS : Evaluate for pulmonary disease. MEDICAL HISTORY : None. SURGICAL HISTORY : None. ENCOUNTER: Subsequent ACUITY: 1 month PAIN SCORE: Non-responsive. LOCATION: Bilateral chest FINDINGS: A single portable frontal view of the chest show some improvement in the bilateral pulmonary infiltra ugo. No effusions. Heart is normal in size. Right-sided PICC line and tracheostomy tube. CONCLUSION: Some improvement in the bilateral pulmonary infiltrates. Ba Cuevas Jr., MD on March 14, 2016 at 3:55 Board Certified Radiologist. This report was verified electronically.
[2016-03-14] MEDS: CHLORHEXIDINE GLUCONATE 2 % 1 PACK (2 CLOTHS) TOP SCH (04:00)
[2016-03-14] MEDS: hydrALAZINE HCL 20 MG/ML VIAL IV PUSH PRN ×2 (05:17→12:13)
[2016-03-14] MEDS: MORPHINE SULFATE 4 MG/ML INJ IV PUSH PRN ×2 (05:17→22:11)
[2016-03-14] MEDS: METHADONE HCL 10 MG/10 ML ORAL SOLUTION PO SCH ×3 (05:18→21:34)
[2016-03-14] MEDS: METOPROLOL TARTRATE 50 MG TAB PEG SCH ×3 (05:19→21:34)
[2016-03-14 05:56] LABS: HEMATOCRIT 33.8 % (39.0-51.0); MEAN CELL VOLUME 91.1 FL (80.0-100.0); MEAN CORPUSCULAR HGB CONC 31.8 % (32.0-36.0); PLATELET COUNT 644 TH/MM3 (150-450); RED BLOOD COUNT 3.71 MIL/MM3 (4.50-5.90); RED CELL DISTRIBUTION WIDTH 14.7 % (11.6-17.2); REVIEW FLAG FINAL; WHITE BLOOD COUNT 13.3 TH/MM3 (4.0-11.0)
[2016-03-14 06:21] LABS: BICARBONATE 31.1 MEQ/L (21.0-32.0); MAGNESIUM 2.1 MG/DL (1.5-2.5); POTASSIUM 4.1 MEQ/L (3.5-5.1)
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
[2016-03-14] MEDS: CHLORHEXIDINE 0.12% (ORAL KIT) 15 ML CUP MT SCH ×2 (07:24→20:17)
[2016-03-14] MEDS: SODIUM CHLORIDE 0.9% FLUSH 5 ML FLUSH IVF SCH ×2 (07:24→20:17)
[2016-03-14] MEDS: FUROSEMIDE 20 MG/2 ML VIAL IV PUSH SCH ×2 (08:31→20:17)
[2016-03-14] MEDS: RANITIDINE HCL SYRUP 150 MG/10 ML UDC PO SCH ×2 (08:32→20:18)
[2016-03-14] MEDS: DOCUSATE SODIUM 100 MG/10 ML UDC NG SCH ×2 (08:32→20:18)
[2016-03-14] MEDS: METOCLOPRAMIDE HCL SYRUP 10 MG/10 ML UDC PO SCH ×2 (08:32→20:18)
[2016-03-14] MEDS: levETIRAcetam 500 MG/5 ML UDC TUBE SCH ×2 (08:32→20:19)
[2016-03-14] MEDS: ENOXAPARIN SODIUM 30 MG/0.3 ML SYRINGE SQ SCH ×2 (08:33→20:18)
[2016-03-15] VITALS (15 sets, daily range): BP systolic 115–184; BP diastolic 63–97; PULSE 80–120; RESP 15–36; TEMP 99.1–100.4; O2SAT 91–98
[2016-03-15] MEDS: CHLORHEXIDINE GLUCONATE 2 % 1 PACK (2 CLOTHS) TOP SCH (04:00)
[2016-03-15] MEDS: METOPROLOL TARTRATE 50 MG TAB PEG SCH ×3 (05:40→21:04)
[2016-03-15] MEDS: METHADONE HCL 10 MG/10 ML ORAL SOLUTION PO SCH ×3 (05:40→21:04)
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
[2016-03-15] MEDS: CHLORHEXIDINE 0.12% (ORAL KIT) 15 ML CUP MT SCH ×2 (08:04→21:04)
[2016-03-15] MEDS: ENOXAPARIN SODIUM 30 MG/0.3 ML SYRINGE SQ SCH ×2 (08:05→20:13)
[2016-03-15] MEDS: DOCUSATE SODIUM 100 MG/10 ML UDC NG SCH ×2 (08:05→20:14)
[2016-03-15] MEDS: SODIUM CHLORIDE 0.9% FLUSH 5 ML FLUSH IVF SCH ×2 (08:05→21:05)
[2016-03-15] MEDS: RANITIDINE HCL SYRUP 150 MG/10 ML UDC PO SCH ×2 (08:05→20:14)
[2016-03-15] MEDS: METOCLOPRAMIDE HCL SYRUP 10 MG/10 ML UDC PO SCH ×2 (08:05→20:13)
[2016-03-15] MEDS: levETIRAcetam 500 MG/5 ML UDC TUBE SCH ×2 (08:05→20:14)
[2016-03-15] MEDS: hydrALAZINE HCL 20 MG/ML VIAL IV PUSH PRN (16:59)
[2016-03-16] VITALS (13 sets, daily range): BP systolic 122–185; BP diastolic 63–105; PULSE 69–111; RESP 16–26; TEMP 98.6–99.3; O2SAT 96–99
[2016-03-16] MEDS: CHLORHEXIDINE GLUCONATE 2 % 1 PACK (2 CLOTHS) TOP SCH ×2 (04:00→20:53)
[2016-03-16] MEDS: METOPROLOL TARTRATE 50 MG TAB PEG SCH ×3 (06:20→21:22)
[2016-03-16] MEDS: METHADONE HCL 10 MG/10 ML ORAL SOLUTION PO SCH ×2 (06:20→21:24)
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
[2016-03-16] MEDS: CHLORHEXIDINE 0.12% (ORAL KIT) 15 ML CUP MT SCH ×2 (08:03→20:00)
[2016-03-16] MEDS: RANITIDINE HCL SYRUP 150 MG/10 ML UDC PO SCH ×2 (08:04→21:23)
[2016-03-16] MEDS: ENOXAPARIN SODIUM 30 MG/0.3 ML SYRINGE SQ SCH ×2 (08:04→21:23)
[2016-03-16] MEDS: levETIRAcetam 500 MG/5 ML UDC TUBE SCH ×2 (08:04→21:23)
[2016-03-16] MEDS: METOCLOPRAMIDE HCL SYRUP 10 MG/10 ML UDC PO SCH (08:04)
[2016-03-16] MEDS: DOCUSATE SODIUM 100 MG/10 ML UDC NG SCH ×2 (08:04→21:23)
[2016-03-16] MEDS: SODIUM CHLORIDE 0.9% FLUSH 5 ML FLUSH IVF SCH ×2 (08:05→21:00)
[2016-03-16] MEDS ORDERED: FUROSEMIDE 20 MG TAB PO ONE (11:15)
[2016-03-16] MEDS: hydrALAZINE HCL 20 MG/ML VIAL IV PUSH PRN (15:32)
[2016-03-17] VITALS (13 sets, daily range): BP systolic 94–175; BP diastolic 54–88; PULSE 58–98; RESP 16–27; TEMP 97.7–98.6; O2SAT 95–98
[2016-03-17 05:12] LABS: HEMATOCRIT 34.7 % (39.0-51.0); MEAN CELL VOLUME 92.5 FL (80.0-100.0); MEAN CORPUSCULAR HEMOGLOBIN 29.8 PG (27.0-34.0); MEAN CORPUSCULAR HGB CONC 32.2 % (32.0-36.0); PLATELET COUNT 604 TH/MM3 (150-450); RED BLOOD COUNT 3.75 MIL/MM3 (4.50-5.90); RED CELL DISTRIBUTION WIDTH 14.9 % (11.6-17.2); REVIEW FLAG FINAL; WHITE BLOOD COUNT 9.7 TH/MM3 (4.0-11.0)
[2016-03-17 05:43] LABS: ALKALINE PHOSPHATASE 212 U/L (45-117); ALT (GPT) 86 U/L (12-78); ANION GAP 7 MEQ/L (5-15); AST (GOT) 47 U/L (15-37); BICARBONATE 32.5 MEQ/L (21.0-32.0); BLOOD UREA NITROGEN 29 MG/DL (7-18); CHLORIDE 103 MEQ/L (98-107); GLOMERULAR FILTRATION RATE 126 ML/MIN (>89); POTASSIUM 3.2 MEQ/L (3.5-5.1); SODIUM (NA) 142 MEQ/L (136-145); TOTAL BILIRUBIN ADULT 0.5 MG/DL (0.2-1.0)
--- NOTE | 2016-03-17 05:53 | RADRPT ---
EXAM DATE/TIME: 03/17/2016 05:23 [place] COMPARISON: CHEST SINGLE AP, March 14, 2016, 3:00. INDICATIONS : Shortness of breath. MEDICAL HISTORY : None. SURGICAL HISTORY : None. ENCOUNTER: Subsequent ACUITY: 1 month PAIN SCORE: Non-responsive. LOCATION: Bilateral chest FINDINGS: A single view of the chest demonstrates linear opacity in the left perihilar region extending into th e left lower lobe. Densities in the left upper lobe and right lung have significantly improved. Trach eostomy tube and PICC line are unchanged. The cardiomediastinal contours are unremarkable. Osseous s tructures are intact. CONCLUSION: Increasing linear density in the left perihilar region. Improving densities in the left upper lobe an d right lung Norman Pineda MD on March 17, 2016 at 5:49 Board Certified Radiologist. This report was verified electronically.
[2016-03-17] MEDS: METOPROLOL TARTRATE 50 MG TAB PEG SCH ×3 (05:56→23:14)
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
[2016-03-17] MEDS ORDERED: POTASSIUM CL 40 MEQ/30 ML LIQ UDC PO ONE ×2 (06:30→10:45)
[2016-03-17] MEDS: DOCUSATE SODIUM 100 MG/10 ML UDC NG SCH ×2 (09:19→20:24)
[2016-03-17] MEDS: CHLORHEXIDINE 0.12% (ORAL KIT) 15 ML CUP MT SCH ×2 (09:19→20:24)
[2016-03-17] MEDS: SODIUM CHLORIDE 0.9% FLUSH 5 ML FLUSH IVF SCH ×2 (09:19→20:24)
[2016-03-17] MEDS: RANITIDINE HCL SYRUP 150 MG/10 ML UDC PO SCH ×2 (09:20→20:23)
[2016-03-17] MEDS: METHADONE HCL 10 MG/10 ML ORAL SOLUTION PO SCH ×2 (09:20→20:24)
[2016-03-17] MEDS: levETIRAcetam 500 MG/5 ML UDC TUBE SCH ×2 (09:20→20:23)
[2016-03-17] MEDS: ENOXAPARIN SODIUM 30 MG/0.3 ML SYRINGE SQ SCH ×2 (09:20→20:23)
[2016-03-17] MEDS: hydrALAZINE HCL 20 MG/ML VIAL IV PUSH PRN (10:10)
[2016-03-17] MEDS ORDERED: LORazepam 2 MG/ML VIAL IV PUSH PRN (10:45)
[2016-03-17] MEDS: cloNIDine HCL 0.2 MG TAB PO SCH ×4 (11:06→23:03)
[2016-03-17] MEDS: CHLORHEXIDINE GLUCONATE 2 % 1 PACK (2 CLOTHS) TOP SCH (20:24)
[2016-03-18] VITALS (12 sets, daily range): BP systolic 94–132; BP diastolic 55–79; PULSE 62–74; RESP 17–27; TEMP 97.7–98.6; O2SAT 93–98
[2016-03-18] MEDS: METOPROLOL TARTRATE 50 MG TAB PEG SCH ×3 (06:32→20:23)
[2016-03-18 07:15] LABS: ALKALINE PHOSPHATASE 206 U/L (45-117); ALT (GPT) 121 U/L (12-78); ANION GAP 10 MEQ/L (5-15); AST (GOT) 63 U/L (15-37); BICARBONATE 31.8 MEQ/L (21.0-32.0); BLOOD UREA NITROGEN 33 MG/DL (7-18); CHLORIDE 105 MEQ/L (98-107); GLOMERULAR FILTRATION RATE 114 ML/MIN (>89); MAGNESIUM 2.3 MG/DL (1.5-2.5); POTASSIUM 3.9 MEQ/L (3.5-5.1); SODIUM (NA) 147 MEQ/L (136-145); TOTAL BILIRUBIN ADULT 0.5 MG/DL (0.2-1.0)
[2016-03-18] MEDS: levETIRAcetam 500 MG/5 ML UDC TUBE SCH ×2 (08:07→20:23)
[2016-03-18] MEDS: ENOXAPARIN SODIUM 30 MG/0.3 ML SYRINGE SQ SCH ×2 (08:07→20:22)
[2016-03-18] MEDS: DOCUSATE SODIUM 100 MG/10 ML UDC NG SCH (08:07)
[2016-03-18] MEDS: RANITIDINE HCL SYRUP 150 MG/10 ML UDC PO SCH ×2 (08:07→20:23)
[2016-03-18] MEDS: METHADONE HCL 10 MG/10 ML ORAL SOLUTION PO SCH ×2 (08:07→20:23)
[2016-03-18] MEDS: CHLORHEXIDINE 0.12% (ORAL KIT) 15 ML CUP MT SCH ×2 (08:08→20:22)
[2016-03-18] MEDS: SODIUM CHLORIDE 0.9% FLUSH 5 ML FLUSH IVF SCH (08:08)
[2016-03-18] MEDS: cloNIDine HCL 0.2 MG TAB PO SCH ×2 (08:09→14:28)
[2016-03-18 08:58] LABS: HEMOGLOBIN A1a 0.6 %; HEMOGLOBIN A1b 0.6 %; HEMOGLOBIN Ao 86.5 %; HEMOGLOBIN F 0.8 %; HEMOGLOBIN LA1C 1.9 %; HEMOGLOBIN P3 3.9 %
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
[2016-03-18] MEDS ORDERED: SODIUM CHLOR 0.45% 500 ML INJ 500 ML IV ONE (09:45)
[2016-03-18] MEDS: FREE WATER G-TUBE SCH (14:28)
--- NOTE | 2016-03-18 19:46 | RADRPT ---
EXAM DATE/TIME: 03/18/2016 17:01 [place] COMPARISON: No previous studies available for comparison. INDICATIONS : Increased lab values. MEDICAL HISTORY : Right occipital bone fracture. Intraparenchymal hemmorrhage. Bilatral subdural hematomas. Encephalopa thy. Pneumonia. Gastritis. Ulcer. SURGICAL HISTORY : Tracheostomy. PEG placement. Panendoscopy with biopsy. ENCOUNTER: Initial ACUITY: 1 day PAIN SCORE: Nonresponsive. LOCATION: Abdomen. MEASUREMENTS: LIVER: 15.3 cm length COMMON DUCT: 6 mm RIGHT KIDNEY: 11.0 x 5.4 x 5.1 cm SPLEEN: 11.7 cm length FINDINGS: LIVER: Normal echotexture without focal lesion or ductal dilatation. Normal flow direction and velocity in t he main portal vein. COMMON DUCT: No intraluminal mass or stone visualized. GALLBLADDER: Contains no stones, demonstrates no wall thickening or pericholecystic fluid. PANCREAS: The visualized portions are within normal limits. RIGHT KIDNEY: No hydronephrosis, stone or mass. SPLEEN: No focal lesion. CONCLUSION: Ultrasound appearance of the liver and other right upper quadrant structures is within normal limits. Duy Skelton MD on March 18, 2016 at 19:42 Board Certified Radiologist. This report was verified electronically.
[2016-03-19] VITALS (13 sets, daily range): BP systolic 95–173; BP diastolic 57–91; PULSE 58–80; RESP 14–28; TEMP 97.7–98.8; O2SAT 94–98
[2016-03-19] MEDS: CHLORHEXIDINE GLUCONATE 2 % 1 PACK (2 CLOTHS) TOP SCH (04:00)
[2016-03-19] MEDS: METOPROLOL TARTRATE 50 MG TAB PEG SCH ×3 (06:00→21:24)
[2016-03-19] MEDS: FREE WATER G-TUBE SCH ×3 (06:00→21:24)
[2016-03-19 08:18] LABS: BASOPHIL # 0.1 TH/MM3 (0-0.2); EOSINOPHIL # 0.3 TH/MM3 (0-0.4); EOSINOPHIL % 2.7 % (0.0-4.0); HEMATOCRIT 35.3 % (39.0-51.0); HEMO FLAGS DIFF FINAL; LYMPH % 16.9 % (9.0-44.0); LYMPHOCYTE # 1.7 TH/MM3 (1.0-4.8); MEAN CELL VOLUME 90.7 FL (80.0-100.0); MEAN CORPUSCULAR HEMOGLOBIN 29.1 PG (27.0-34.0); MEAN CORPUSCULAR HGB CONC 32.1 % (32.0-36.0); MONO % 10.4 % (0.0-8.0); PLATELET COUNT 617 TH/MM3 (150-450); RED CELL DISTRIBUTION WIDTH 14.6 % (11.6-17.2); WHITE BLOOD COUNT 10.2 TH/MM3 (4.0-11.0)
[2016-03-19 08:25] LABS: ALT (GPT) 147 U/L (12-78); ANION GAP 5 MEQ/L (5-15); AST (GOT) 68 U/L (15-37); BICARBONATE 31.6 MEQ/L (21.0-32.0); BLOOD UREA NITROGEN 29 MG/DL (7-18); CHLORIDE 103 MEQ/L (98-107); GLOMERULAR FILTRATION RATE 139 ML/MIN (>89); MAGNESIUM 2.2 MG/DL (1.5-2.5); SODIUM (NA) 140 MEQ/L (136-145)
[2016-03-19 08:27] LABS: ALKALINE PHOSPHATASE 217 U/L (45-117); TOTAL BILIRUBIN ADULT 0.5 MG/DL (0.2-1.0)
[2016-03-19] MEDS: RANITIDINE HCL SYRUP 150 MG/10 ML UDC PO SCH (08:42)
[2016-03-19] MEDS: SODIUM CHLORIDE 0.9% FLUSH 5 ML FLUSH IVF SCH ×2 (08:43→20:55)
[2016-03-19] MEDS: levETIRAcetam 500 MG/5 ML UDC TUBE SCH ×2 (08:43→20:55)
[2016-03-19] MEDS: ENOXAPARIN SODIUM 30 MG/0.3 ML SYRINGE SQ SCH ×2 (08:43→20:54)
[2016-03-19] MEDS: METHADONE HCL 10 MG/10 ML ORAL SOLUTION PO SCH ×2 (08:43→20:58)
[2016-03-19] MEDS: CHLORHEXIDINE 0.12% (ORAL KIT) 15 ML CUP MT SCH ×2 (08:58→20:55)
[2016-03-19] MEDS ORDERED: cloNIDine HCL 0.2 MG TAB PO SCH (09:00)
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
[2016-03-19] MEDS: MORPHINE SULFATE 4 MG/ML INJ IV PUSH PRN (10:38)
[2016-03-19] MEDS: hydrALAZINE HCL 25 MG TAB PO SCH ×2 (14:00→21:24)
[2016-03-20] VITALS (14 sets, daily range): BP systolic 122–168; BP diastolic 65–87; PULSE 58–84; RESP 20–24; TEMP 98–99.1; O2SAT 96–100
[2016-03-20 03:52] LABS: AUTOMATED NEUTROPHIL # 6.1 TH/MM3 (1.8-7.7); BASOPHIL # 0.1 TH/MM3 (0-0.2); BASOPHIL % 0.6 % (0.0-2.0); EOSINOPHIL # 0.1 TH/MM3 (0-0.4); EOSINOPHIL % 1.4 % (0.0-4.0); HEMATOCRIT 35.6 % (39.0-51.0); HEMO FLAGS DIFF FINAL; LYMPH % 19.4 % (9.0-44.0); LYMPHOCYTE # 1.7 TH/MM3 (1.0-4.8); MEAN CELL VOLUME 89.9 FL (80.0-100.0); MEAN CORPUSCULAR HEMOGLOBIN 30.3 PG (27.0-34.0); MEAN CORPUSCULAR HGB CONC 33.7 % (32.0-36.0); MONO % 10.8 % (0.0-8.0); NEUT % 67.8 % (16.0-70.0); PLATELET COUNT 580 TH/MM3 (150-450); RED BLOOD COUNT 3.96 MIL/MM3 (4.50-5.90); RED CELL DISTRIBUTION WIDTH 14.3 % (11.6-17.2); WHITE BLOOD COUNT 8.9 TH/MM3 (4.0-11.0)
[2016-03-20 04:25] LABS: ALT (GPT) 119 U/L (12-78); ANION GAP 6 MEQ/L (5-15); AST (GOT) 40 U/L (15-37); BICARBONATE 31.1 MEQ/L (21.0-32.0); BLOOD UREA NITROGEN 23 MG/DL (7-18); CHLORIDE 104 MEQ/L (98-107); GLOMERULAR FILTRATION RATE 157 ML/MIN (>89); MAGNESIUM 2.3 MG/DL (1.5-2.5); POTASSIUM 3.9 MEQ/L (3.5-5.1); SODIUM (NA) 141 MEQ/L (136-145)
[2016-03-20 04:28] LABS: ALKALINE PHOSPHATASE 209 U/L (45-117); TOTAL BILIRUBIN ADULT 0.5 MG/DL (0.2-1.0)
[2016-03-20] MEDS: CHLORHEXIDINE GLUCONATE 2 % 1 PACK (2 CLOTHS) TOP SCH ×2 (04:41→20:01)
[2016-03-20] MEDS: METOPROLOL TARTRATE 50 MG TAB PEG SCH ×3 (05:15→21:01)
[2016-03-20] MEDS: hydrALAZINE HCL 25 MG TAB PO SCH ×3 (05:16→21:01)
[2016-03-20] MEDS: FREE WATER G-TUBE SCH ×3 (05:16→21:01)
[2016-03-20] MEDS: CHLORHEXIDINE 0.12% (ORAL KIT) 15 ML CUP MT SCH ×2 (08:00→21:00)
[2016-03-20] MEDS: METHADONE HCL 10 MG/10 ML ORAL SOLUTION PO SCH ×2 (08:20→21:00)
[2016-03-20] MEDS: ENOXAPARIN SODIUM 30 MG/0.3 ML SYRINGE SQ SCH ×2 (08:20→21:00)
[2016-03-20] MEDS: levETIRAcetam 500 MG/5 ML UDC TUBE SCH ×2 (08:22→20:59)
[2016-03-20] MEDS: SODIUM CHLORIDE 0.9% FLUSH 5 ML FLUSH IVF SCH ×2 (08:22→21:00)
[2016-03-20] MEDS ORDERED: cloNIDine HCL 0.1 MG TAB PO SCH (09:00)
[2016-03-20] MEDS: hydrALAZINE HCL 20 MG/ML VIAL IV PUSH PRN (09:25)
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
--- NOTE | 2016-03-20 13:37 | HHI.STRCON ---
Stroke Care Coordination Conf Multidiscplinary Team: PT, OT, ST, Nutrition, Case Management Stroke: Hemorrhagic, Location GCS: 10 Respiratory: Trach Current Abnormal Labs/Tests Laboratory Tests Test 03/20/16 03:42 Red Blood Count 3.96 MIL/MM3 (4.50-5.90) Hemoglobin 12.0 GM/DL (13.0-17.0) Hematocrit 35.6 % (39.0-51.0) Platelet Count 580 TH/MM3 (150-450) Monocytes (%) (Auto) 10.8 % (0.0-8.0) Monocytes # (Auto) 1.0 TH/MM3 (0-0.9) Blood Urea Nitrogen 23 MG/DL (7-18) Creatinine 0.53 MG/DL (0.60-1.30) Random Glucose 128 MG/DL (74-106) Direct Bilirubin 0.3 MG/DL (0.0-0.2) Aspartate Amino Transf 40 U/L (15-37) (AST/SGOT) Alanine Aminotransferase 119 U/L (12-78) (ALT/SGPT) Alkaline Phosphatase 209 U/L (45-117) Albumin 2.7 GM/DL (3.4-5.0) Date of Last Bowel Movement: Mar 12, 2016 ST: Cognition (Severe) Nutrition: Tube feeding (Glucerna 1.5 @ goal rate of 60ml/hr) PT: PROM OT: ROM (PROM ) Assess for Rehab Services: Yes DC Plan/CM/SW Ins Concerns/Pay: Sub-acute Rehab (SNF and SSI Pending) Leilani Guy Mar 20, 2016 13:37
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
[2016-03-21] VITALS (14 sets, daily range): BP systolic 134–171; BP diastolic 73–95; PULSE 60–96; RESP 12–24; TEMP 97.9–98.9; O2SAT 95–100
[2016-03-21] MEDS: LABETALOL HCL 100 MG/20 ML VIAL IV PUSH PRN (01:04)
[2016-03-21 04:55] LABS: HEMATOCRIT 37.2 % (39.0-51.0); MEAN CELL VOLUME 90.9 FL (80.0-100.0); MEAN CORPUSCULAR HGB CONC 31.9 % (32.0-36.0); PLATELET COUNT 577 TH/MM3 (150-450); RED CELL DISTRIBUTION WIDTH 14.6 % (11.6-17.2); REVIEW FLAG FINAL; WHITE BLOOD COUNT 9.6 TH/MM3 (4.0-11.0)
[2016-03-21 05:17] LABS: ALT (GPT) 103 U/L (12-78); ANION GAP 8 MEQ/L (5-15); AST (GOT) 36 U/L (15-37); BICARBONATE 30.5 MEQ/L (21.0-32.0); BLOOD UREA NITROGEN 24 MG/DL (7-18); CHLORIDE 105 MEQ/L (98-107); GLOMERULAR FILTRATION RATE 134 ML/MIN (>89); MAGNESIUM 2.4 MG/DL (1.5-2.5); POTASSIUM 3.9 MEQ/L (3.5-5.1); SODIUM (NA) 143 MEQ/L (136-145)
[2016-03-21 05:19] LABS: ALKALINE PHOSPHATASE 188 U/L (45-117); TOTAL BILIRUBIN ADULT 0.4 MG/DL (0.2-1.0)
[2016-03-21] MEDS: hydrALAZINE HCL 25 MG TAB PO SCH ×3 (05:19→21:04)
[2016-03-21] MEDS: METOPROLOL TARTRATE 50 MG TAB PEG SCH ×3 (05:19→21:04)
[2016-03-21 05:20] LABS: CREATINE KINASE 21 U/L (39-308)
[2016-03-21] MEDS: FREE WATER G-TUBE SCH ×3 (05:20→21:05)
[2016-03-21] MEDS: METHADONE HCL 10 MG/10 ML ORAL SOLUTION PO SCH ×2 (07:41→21:04)
[2016-03-21] MEDS: LANSOPRAZOLE SOLUTAB 30 MG TAB NG SCH (07:41)
[2016-03-21] MEDS: SODIUM CHLORIDE 0.9% FLUSH 5 ML FLUSH IVF SCH ×2 (07:42→21:04)
[2016-03-21] MEDS: CHLORHEXIDINE 0.12% (ORAL KIT) 15 ML CUP MT SCH ×2 (07:42→21:04)
[2016-03-21] MEDS: levETIRAcetam 500 MG/5 ML UDC TUBE SCH ×2 (07:42→21:03)
[2016-03-21] MEDS: ENOXAPARIN SODIUM 30 MG/0.3 ML SYRINGE SQ SCH ×2 (07:42→21:04)
[2016-03-21] MEDS ORDERED: cloNIDine HCL 0.1 MG TAB PO ONE (09:00)
--- NOTE | 2016-03-21 10:32 | HHI.PR ---
Subjective Remarks in no acute distress and afebrile. d/w RN and no acute issues over night. Objective Vitals Vital Signs Date Time Temp Pulse Resp B/P Pulse Ox O2 Delivery O2 Flow Rate FiO2 03/21/16 09:16 95 T-piece 5.00 35 03/21/16 08:00 98.6 69 20 160/80 100 03/21/16 08:00 77 03/21/16 07:00 100 T-Piece 6.00 35 03/21/16 06:00 60 03/21/16 04:00 98.2 77 12 148/80 100 03/21/16 04:00 77 03/21/16 02:00 78 03/21/16 00:00 70 03/21/16 00:00 98.9 70 20 171/89 99 03/20/16 22:09 97 T-piece 6.00 35 03/20/16 22:00 64 03/20/16 20:00 58 03/20/16 20:00 98.4 58 20 139/69 97 03/20/16 19:00 100 T-Piece 6.00 35 03/20/16 18:00 62 03/20/16 16:00 98.6 65 20 122/65 100 03/20/16 16:00 69 03/20/16 14:00 79 03/20/16 12:00 78 03/20/16 12:00 99.1 78 23 148/68 100 I/O 03/20/16 03/20/16 03/20/16 03/21/16 03/21/16 03/21/16 07:00 15:00 23:00 07:00 15:00 23:00 Intake Total 418 ml 502 ml 453 ml 368 ml Output Total 600 ml 1000 ml 400 ml 750 ml 0 ml Balance -182 ml -498 ml 53 ml -382 ml 0 ml Tube Feeding 418 ml 502 ml 453 ml 368 ml Output Urine Total 600 ml 1000 ml 400 ml 750 ml Tube Feeding Residual Discard 0 ml 0 ml 0 ml 0 ml # Bowel Movements 1 2 2 Result Diagram: 03/21/16 0440 03/21/16 0440 Imaging Last Impressions Liver Ultrasound 03/18/16 0000 Signed Impressions: Service Date/Time: Friday, March 18, 2016 17:01 - CONCLUSION: Ultrasound appearance of the liver and other right upper quadrant structures is within normal limits. Duy Skelton MD Chest X-Ray 03/17/16 0600 Signed Impressions: Service Date/Time: Thursday, March 17, 2016 05:23 - CONCLUSION: Increasing linear density in the left perihilar region. Improving densities in the left upper lobe and right lung Norman Pineda MD Head CT 03/09/16 0600 Signed Impressions: Service Date/Time: Wednesday, March 09, 2016 04:21 - CONCLUSION: 1. Mild improvement of the cerebral edema in the left cerebral hemisphere. 2. Otherwise , no other new or significant changes. Alli Jj MD Head CTA 02/16/16 0000 Signed Impressions: Service Date/Time: Tuesday, February 16, 2016 04:31 - CONCLUSION: I do not see an etiology for the patient's cerebellar hemorrhage on the right. Small supratentorial vessels in a 65-year-old. Etiology of this finding is not apparent. Trace subdural blood and subarachnoid blood persist over both convexities. Earl Gaitan MD FACR Cervical Spine CT 02/15/16 0445 Signed Impressions: Service Date/Time: January 04:57 - CONCLUSION: 1. Slight neural foramina compromise bilateral C4-5 and C5-6 in addition to bilateral lateral recess compromise at these levels and no significant thecal sac stenosis. 2. There is also slight neural foramina compromise right C3-C4. 3. Nonspecific lucencies in the spine may be osteoporotic changes, however myeloma is difficult to exclude. Ariadne Feng MD Objective Remarks GENERAL: This is a well-nourished, well-developed patient, in no apparent distress. HEENT/Neck; s/p craniotomy/ trach in place CARDIOVASCULAR: Regular rate and regular rhythm without murmurs, gallops, or rubs. RESPIRATORY: Clear to auscultation. Breath sounds equal bilaterally. No wheezes , rales, or rhonchi. GASTROINTESTINAL: Abdomen soft, non-tender, nondistended. Normal, active bowel sounds-PEG in place MUSCULOSKELETAL: Extremities without clubbing, cyanosis, or edema. NEURO: awake Procedures craniotomy central line placement PEG placement tracheostomy Medications and IVs Current Medications IV Flush 2 ml 2 ml UNSCH PRN IVF FLUSH AFTER USING IV ACCESS; Start 02/15/16 at 00:45; Stop 02/15/16 at 04:08; Status DC Sodium Chloride (NS 1000 ml Inj) 1,000 ml @ 1,000 mls/hr Q1H IV Last administered on 02/15/16at 00:50; Start 02/15/16 at 00:43; Stop 02/15/16 at 01:42 ; Status DC Promethazine HCl (Phenergan Inj) 25 mg ONCE ONCE IM Last administered on at 00:50; Start 02/15/16 at 00:45; Stop 02/15/16 at 00:46; Status DC IV Flush (NS Flush) 2 ml UNSCH PRN IVF FLUSH AFTER USING IV ACCESS; Start 02/14 at 02:00; Stop 02/15/16 at 04:08; Status DC Rocuronium [place] (Zemuron Inj) 50 mg BOLUS ONCE IV Last administered on 02/14at 03:06; Start 02/15/16 at 02:30; Stop 02/15/16 at 02:31; Status DC Etomidate (Amidate Inj) 20 mg ONCE ONCE IV PUSH Last administered on at 03:07; Start 02/15/16 at 02:30; Stop 02/15/16 at 02:31; Status DC Rocuronium [place] 100 mg 100 mg STK-MED ONCE .ROUTE ; Start 02/15/16 at 02:22; Stop 02/15/16 at 02:23; Status DC Propofol (Diprivan 1000 Mg/100ml Inj) 100 ml @ As Directed STK-MED ONCE .ROUTE ; Start 02/15/16 at 02:25; Stop 02/15/16 at 02:26; Status DC Mannitol 25 gm 25 gm ONCE ONCE IV Last administered on 02/15/16at 03:09; Start 02/15/16 at 02:30; Stop 02/15/16 at 02:31; Status DC Propofol (Diprivan 1000 Mg/100ml Inj) 100 ml @ 0 mls/hr TITRATE IV Last administered on 02/15/16at 03:08; Start 02/15/16 at 02:45; Stop 02/15/16 at 11:04 ; Status DC Hydromorphone HCl 1 mg 1 mg ONCE ONCE IV PUSH Last administered on 02/15/16at 03:07; Start 02/15/16 at 03:00; Stop 02/15/16 at 03:01; Status DC Clevidipine (Cleviprex Inj) 50 ml @ 0 mls/hr TITRATE IV Last administered on at 04:15; Start 02/15/16 at 03:45; Stop 02/15/16 at 14:24; Status DC Hydralazine HCl (Apresoline Inj) 20 mg STK-MED ONCE .ROUTE ; Start 02/15/16 at 03:56; Stop 02/15/16 at 03:57; Status DC Hydralazine HCl 20 mg 20 mg ONCE ONCE IV PUSH Last administered on 02/15/16at 04:14; Start 02/15/16 at 04:00; Stop 02/15/16 at 04:09; Status DC Sodium Chloride (NS 1000 ml Inj) 1,000 ml @ 75 mls/hr [id number] IV Last administered on 02/15/16at 04:35; Start 02/15/16 at 03:58; Stop 02/17/16 at 07:41 ; Status DC IV Flush (NS Flush) 2 ml UNSCH PRN IVF FLUSH AFTER USING IV ACCESS; Start 02/14 at 04:00; Stop 02/21/16 at 15:14; Status DC IV Flush (NS Flush) 2 ml BID IVF Last administered on 02/21/16at 08:50; Start at 09:00; Stop 02/21/16 at 15:14; Status DC Pantoprazole Sodium (Protonix Inj) 40 mg DAILY IV Last administered on at 09:53; Start 02/15/16 at 09:00; Stop 02/28/16 at 07:46; Status DC Albuterol/ Ipratropium (Duoneb Neb) 1 ampule Q4HR NEB INH Last administered on 02/19/16at 03:03; Start 02/15/16 at 04:00; Stop 02/19/16 at 04:00; Status DC Albuterol/ Ipratropium (Duoneb Neb) 1 ampule Q2HR NEB PRN INH WHEEZING Last administered on 03/02/16at 10:54; Start 02/15/16 at 04:00 Miscellaneous Information 1 [id number] XX ; Start 02/15/16 at 04:00 Chlorhexidine Gluconate (Chlorhexidine 2% Cloth) Taper DAILY@04 TOP Last administered on 03/20/16at 04:41; Start 02/15/16 at 04:00; Stop 02/10/17 at 03:59 Chlorhexidine Gluconate (Chlorhexidine 2% Cloth) 3 pack UNSCH PRN TOP HYGIENIC CARE; Start 02/15/16 at 04:00 Chlorhexidine Gluconate 15 ml 15 ml BID@08,20 MT Last administered on at 07:42; Start 02/15/16 at 08:00 Propofol 100 ml @ 0 mls/hr TITRATE IV Last administered on 03/07/16at 09:51; Start 02/15/16 at 04:00; Stop 03/08/16 at 15:00; Status DC Fentanyl Citrate 250 ml @ 0 mls/hr TITRATE IV Last administered on 03/02/16at 06 :29; Start 02/15/16 at 04:00; Stop 03/02/16 at 09:35; Status DC Nicardipine HCl/ Sodium Chloride (Cardene Inj/NS 250 ml Inj) 260 ml @ 0 mls/hr TITRATE IV Last administered on 02/15/16at 12:15; Start 02/15/16 at 04:15; Stop 02/18/16 at 06:47; Status DC Metoprolol Tartrate (Lopressor Inj) 5 mg ONCE PRN IV PUSH SBP>160, DBP>90; Start 02/15/16 at 04:15; Stop 02/15/16 at 06:28; Status DC Mannitol 25 gm 25 gm Q6H IV Last administered on 02/18/16at 06:44; Start at 07:00; Stop 02/20/16 at 19:37; Status DC Midazolam HCl (Versed Inj) 100 ml @ 10 mls/hr CONTINUOUS IV Last administered on 03/04/16at 21:47; Start 02/15/16 at 10:45; Stop 03/07/16 at 07:46; Status DC Vecuronium [place] (Norcuron 20 Mg Inj) 20 mg ONCE ONCE IV PUSH ; Start at 10:45; Stop 02/15/16 at 10:47; Status DC Vecuronium [place] 10 mg 10 mg STK-MED ONCE .ROUTE ; Start 02/15/16 at 13:07; Stop 02/15/16 at 13:08; Status DC Sodium Chloride 1,000 ml @ 100 mls/hr Q10H IV Last administered on 02/16/16at 08:57; Start 02/15/16 at 13:39; Stop 02/17/16 at 07:41; Status DC Cefazolin Sodium/ Dextrose 50 ml @ 150 mls/hr ONCE ONCE IV ; Start 02/15/16 at 13:45; Stop 02/15/16 at 14:04; Status Cancel Vancomycin HCl/ Sodium Chloride (Vancomycin Inj/ NS 250 ml Inj) 250 ml @ 250 mls/hr ONCE ONCE IV ; Start 02/15/16 at 13:45; Stop 02/15/16 at 14:44; Status Cancel Chlorhexidine Gluconate 1 applic 1 applic HS TOP ; Start 02/15/16 at 21:00; Stop 02/16/16 at 21:01; Status DC Cefazolin Sodium/ Dextrose 50 ml @ 100 mls/hr CHARGER IV Last administered on 02/16/16at 07:50; Start 02/16/16 at 06:00; Stop 02/18/16 at 05:59; Status DC Vancomycin HCl/ Sodium Chloride (Vancomycin Inj/ NS 250 ml Inj) 250 ml @ 250 mls/hr CHARGER IV Last administered on 02/16/16at 08:42; Start 02/16/16 at 06: 00; Stop 02/18/16 at 05:59; Status DC Lidocaine/ Epinephrine (Xylocaine-Epi 1%-1:100,000 Inj) 30 ml STK-MED ONCE .ROUTE Last administered on 02/16/16at 09:08; Start 02/16/16 at 07:16; Stop at 07:17; Status DC Thrombin 89045 units 10,000 units STK-MED ONCE .ROUTE Last administered on 02/15at 10:32; Start 02/16/16 at 07:17; Stop 02/16/16 at 07:18; Status DC Levetriacetam (Keppra 500 Mg Premix Inj) 100 ml @ As Directed STK-MED ONCE IV ; Start 02/16/16 at 07:17; Stop 02/16/16 at 07:18; Status DC Gelatin (Gelfoam 100 Top) 1 foam STK-MED ONCE .ROUTE Last administered on at 10:29; Start 02/16/16 at 07:17; Stop 02/16/16 at 07:18; Status DC Furosemide (Lasix Inj) 40 mg STK-MED ONCE .ROUTE ; Start 02/16/16 at 07:17; Stop 02/16/16 at 07:18; Status DC Bacitracin (Baciguent Oint) 15 applic STK-MED ONCE .ROUTE Last administered on 02/16/16at 10:29; Start 02/16/16 at 07:18; Stop 02/16/16 at 07:19; Status DC Gentamicin Sulfate 240 mg 240 mg STK-MED ONCE .ROUTE Last administered on at 10:30; Start 02/16/16 at 07:18; Stop 02/16/16 at 07:19; Status DC Sodium Chloride (NS 250 ml Inj) 250 ml @ As Directed STK-MED ONCE .ROUTE ; Start 02/16/16 at 07:18; Stop 02/16/16 at 07:19; Status DC Vancomycin HCl (Vancomycin Inj) 2,000 mg STK-MED ONCE .ROUTE ; Start 02/16/16 at 07:40; Stop 02/16/16 at 07:41; Status DC Thrombin (Thrombin Top Soln) 10,000 units STK-MED ONCE .ROUTE Last administered on 02/16/16at 10:32; Start 02/16/16 at 09:49; Stop 02/16/16 at 09:50 ; Status DC Gelatin 1 foam 1 foam STK-MED ONCE .ROUTE ; Start 02/16/16 at 11:08; Stop at 11:09; Status DC Potassium Chloride/Sodium Chloride (NS + KCl 20 Meq Inj) 1,000 ml @ 100 mls/hr Q10H IV Last administered on 02/17/16at 20:23; Start 02/16/16 at 11:45; Stop at 06:47; Status DC IV Flush (NS Flush) 2 ml UNSCH PRN IVF FLUSH AFTER USING IV ACCESS Last administered on 03/04/16at 17:14; Start 02/16/16 at 11:45 IV Flush 2 ml 2 ml BID IVF Last administered on 03/20/16at 21:00; Start at 21:00 Cefazolin Sodium/ Dextrose 50 ml @ 100 mls/hr Q8H IV Last administered on 02/16at 07:31; Start 02/16/16 at 16:00; Stop 02/17/16 at 08:29; Status DC Levetriacetam (Keppra 500 Mg Premix Inj) 100 ml @ 400 mls/hr Q12H IV Last administered on 02/27/16at 22:20; Start 02/16/16 at 11:45; Stop 02/28/16 at 07:46; Status DC Bisacodyl (Dulcolax Supp) 10 mg DAILY PRN ME CONSTIPATION Last administered on 02/21/16at 06:05; Start 02/16/16 at 11:45 Docusate Sodium (Colace) 100 mg BID PO Last administered on 02/19/16at 21:02; Start 02/16/16 at 21:00; Stop 02/20/16 at 06:51; Status DC Pantoprazole Sodium (Protonix) 40 mg DAILY PO ; Start 02/17/16 at 09:00; Stop at 06:48; Status DC Pantoprazole Sodium (Protonix Inj) 40 mg DAILY IVP ; Start 02/17/16 at 09:00; Stop 02/18/16 at 06:48; Status DC Ondansetron HCl (Zofran Inj) 4 mg Q6H PRN IV NAUSEA OR VOMITING; Start at 11:45 Calcium Gluconate 1 gm 1 gm UNSCH PRN IV SEE LABEL COMMENTS; Start 02/16/16 at 11:45; Stop 02/27/16 at 15:15; Status DC Potassium Chloride 100 ml @ 50 mls/hr UNSCH PRN IV POTASSIUM LESS THAN 4 Last administered on 02/18/16at 17:59; Start 02/16/16 at 11:45 Magnesium Sulfate/ Sodium Chloride (Magnesium Sulfate Inj/NS Inj) 108 ml @ 108 mls/hr UNSCH PRN IV MAGNESIUM LESS THAN 2; Start 02/16/16 at 11:45; Stop at 07:46; Status DC Acetaminophen/ Hydrocodone Bitart ([place] 10-325 Mg) 1 tab Q4H PRN PO PAIN SCALE 1 TO 5; Start 02/16/16 at 11:45; Stop 02/27/16 at 15:15; Status DC Acetaminophen/ Hydrocodone Bitart ([place] 10-325 Mg) 2 tab Q4H PRN PO PAIN SCALE 6 TO 10 Last administered on 02/26/16at 16:56; Start 02/16/16 at 11:45; Stop 02/27/16 at 15:15; Status DC Morphine Sulfate (Morphine Inj) 2 mg Q2H PRN IV PUSH PAIN SCALE 1 TO 6 Last administered on 02/20/16at 01:03; Start 02/16/16 at 11:45; Stop 02/27/16 at 15:15 ; Status DC Morphine Sulfate (Morphine Inj) 4 mg Q2H PRN IV PUSH PAIN SCALE 7 TO 10 Last administered on 02/27/16at 02:45; Start 02/16/16 at 11:45; Stop 02/27/16 at 15:15; Status DC Acetaminophen (Tylenol) 650 mg Q4H PRN PO TEMPERATURE > 101.5 F Last administered on 03/06/16at 11:19; Start 02/16/16 at 11:45; Stop 03/19/16 at 09:23 ; Status DC Miscellaneous Information ALL NURSING DEPARTME... UNSCH PRN XX SEE LABEL COMMENTS; Start 02/16/16 at 12:45; Stop 02/17/16 at 12:44; Status DC Fentanyl Citrate (Sublimaze Inj) 500 mcg STK-MED ONCE .ROUTE ; Start 02/16/16 at 13:01; Stop 02/16/16 at 13:02; Status DC Norepinephrine Bitartrate 4 mg 4 mg STK-MED ONCE .ROUTE Last administered on at 07:27; Start 02/17/16 at 07:27; Stop 02/17/16 at 07:28; Status DC Sodium Chloride 1,000 ml @ 1,000 mls/hr Q1H ONCE IV Last administered on at 08:15; Start 02/17/16 at 08:15; Stop 02/17/16 at 09:14; Status DC Norepinephrine Bitartrate (Levophed-Dextrose Drip) 250 ml @ 0 mls/hr TITRATE IV ; Start 02/17/16 at 07:45; Stop 02/17/16 at 16:32; Status DC Terbutaline Sulfate (Brethine Inj) 1 mg UNSCH PRN SQ For Extravasation; Start 02/17/16 at 07:45; Stop 02/21/16 at 15:14; Status DC Chlordiazepoxide (Librium) 50 mg Q8H PO Last administered on 02/20/16at 01:03; Start 02/17/16 at 08:00; Stop 02/20/16 at 07:59; Status DC Iohexol (Omnipaque 350 Inj) 71 ml STK-MED ONCE IV Last administered on at 04:31; Start 02/16/16 at 04:31; Stop 02/17/16 at 08:10; Status DC Norepinephrine Bitartrate 4 mg 4 mg STK-MED ONCE .ROUTE ; Start 02/17/16 at 14: 33; Stop 02/17/16 at 14:34; Status DC Norepinephrine Bitartrate 4 mg/ Sodium Chloride 254 ml @ 0 mls/hr TITRATE IV Last administered on 02/20/16at 16:36; Start 02/17/16 at 17:00; Stop 02/21/16 at 15:14; Status DC Sodium Chloride (Sodium Chloride 3% Inj) 500 ml @ 30 mls/hr CONTINUOUS IV Last administered on 02/19/16at 02:14; Start 02/18/16 at 06:15; Stop 02/19/16 at 07:26; Status DC Metoclopramide HCl (Reglan Inj) 10 mg Q8HR IV PUSH Last administered on at 04:31; Start 02/18/16 at 06:45; Stop 02/28/16 at 07:46; Status DC Lactulose (Lactulose Liq) 30 ml DAILY PO Last administered on 02/26/16at 10:46; Start 02/18/16 at 09:00; Stop 02/27/16 at 09:03; Status DC Furosemide 40 mg 40 mg ONCE ONCE IV PUSH Last administered on 02/18/16at 07:25 ; Start 02/18/16 at 06:45; Stop 02/18/16 at 06:49; Status DC Magnesium Sulfate/ Dextrose (Magnesium Sulfate 1 Gm Premix) 100 ml @ 100 mls/ hr Q1H IV Last administered on 02/18/16at 08:00; Start 02/18/16 at 07:00; Stop 02/18/16 at 08:59; Status DC Metoclopramide HCl 10 mg 10 mg Q8HR IM ; Start 02/18/16 at 09:00; Stop 02/18/16 at 10:36; Status DC Sodium Chloride 240 meq/Syringe / Bag 60 ml @ 0 mls/hr ONCE ONCE IV Last administered on 02/18/16at 10:38; Start 02/18/16 at 12:00; Stop 02/18/16 at 12:01 ; Status DC Potassium Chloride 100 ml @ 25 mls/hr Q4H IV ; Start 02/18/16 at 19:45; Stop at 19:45; Status DC Potassium Chloride 30 meq/ Sodium Chloride 115 ml @ 38.333 mls/ hr Q3H IV Last administered on 02/18/16at 23:15; Start 02/18/16 at 21:00; Stop 02/19/16 at 02:59; Status DC Potassium Phosphate/Sodium Chloride (Potassium Phosphate Inj/NS Inj) 155 ml @ 38.75 mls/ hr ONCE ONCE IV Last administered on 02/18/16at 20:07; Start at 21:00; Stop 02/19/16 at 00:59; Status DC Calcium Chloride 1 gm 1 gm ONCE ONCE IV PUSH Last administered on 02/18/16at 20 :06; Start 02/18/16 at 20:00; Stop 02/18/16 at 20:01; Status DC Potassium Chloride (KCl 40 Meq Premix Inj) 100 ml @ 25 mls/hr BOLUS ONCE IV Last administered on 02/19/16at 05:43; Start 02/19/16 at 05:30; Stop 02/19/16 at 09:29; Status DC Potassium Chloride 40 meq 40 meq ONCE ONCE PO Last administered on 02/19/16at 05:42; Start 02/19/16 at 05:30; Stop 02/19/16 at 05:31; Status DC Potassium Chloride 100 ml @ 50 mls/hr Q2H PRN IV For Potassium 2.8 - 3.2 mEq/ L Last administered on 02/26/16at 10:47; Start 02/19/16 at 07:30 Potassium Chloride (KCl 20 Meq Premix Inj) 100 ml @ 50 mls/hr Q2H PRN IV For Potassium 2.8 - 3.2 mEq/L; Start 02/19/16 at 07:30 Potassium Chloride 40 meq 40 meq UNSCH PRN PO/TUBE For Potassium 3.3 - 3.5 mEq/ L Last administered on 03/03/16at 09:31; Start 02/19/16 at 07:30 Potassium Chloride 100 ml @ 25 mls/hr UNSCH PRN IV For Potassium 3.3 - 3.5 mEq /L Last administered on 02/29/16at 06:47; Start 02/19/16 at 07:30 Potassium Chloride 100 ml @ 50 mls/hr Q2H PRN IV For Potassium 3.3 - 3.5 mEq/L ; Start 02/19/16 at 07:30 Magnesium Sulfate/ Sodium Chloride (Magnesium Sulfate Inj/NS Inj) 100 ml @ 50 mls/hr UNSCH PRN IV For Magnesium 0.9 - 1.1 mg/dL; Start 02/19/16 at 07:30 Magnesium Oxide 800 mg 800 mg UNSCH PRN PO For Magnesium 1.2 - 1.6 mg/dL; Start 02/19/16 at 07:30 Magnesium Sulfate/ Sodium Chloride (Magnesium Sulfate Inj/NS Inj) 100 ml @ 50 mls/hr UNSCH PRN IV For Magnesium 1.2 - 1.6 mg/dL; Start 02/19/16 at 07:30 Potassium Phosphate 2000 mg 2,000 mg Q4H PRN PO For Phosphorus < 2.5 mg/dL; Start 02/19/16 at 07:30 Sodium Phosphate/ Sodium Chloride (Sodium Phosphate Inj/NS 250 ml Inj) 250 ml @ 42 mls/hr UNSCH PRN IV For Phosphorus < 2.5 mg/dL; Start 02/19/16 at 07:30 Potassium Chloride (KCl 40 Meq/30 ml Liq) 40 meq UNSCH PRN PO/TUBE SEE LABEL COMMENTS; Start 02/19/16 at 07:30 Potassium Phosphate 2000 mg 2,000 mg UNSCH PRN PO/TUBE SEE LABEL COMMENTS; Start 02/19/16 at 07:30 Potassium Phosphate 30 mmol/ Sodium Chloride 260 ml @ 42 mls/hr UNSCH PRN IV SEE LABEL COMMENTS; Start 02/19/16 at 07:30 Sodium Chloride (NS 250 ml Inj) 250 ml @ As Directed STK-MED ONCE .ROUTE ; Start 02/19/16 at 21:51; Stop 02/19/16 at 21:52; Status DC Norepinephrine Bitartrate (Levophed Inj) 4 mg STK-MED ONCE .ROUTE ; Start at 21:51; Stop 02/19/16 at 21:52; Status DC Docusate Sodium (Colace Liq) 100 mg BID NG Last administered on 03/18/16at 08:07 ; Start 02/20/16 at 09:00; Stop 03/18/16 at 15:25; Status DC Polyethylene Glycol 17 gm 17 gm DAILY PO Last administered on 02/26/16at 10:47; Start 02/20/16 at 09:00; Stop 02/27/16 at 09:03; Status DC Pharmacy Profile Note 0 ml @ 0 mls/hr UNSCH XX ; Start 02/20/16 at 08:15; Stop 02/25/16 at 09:02; Status DC Piperacillin Sod/ Tazobactam Sod (Zosyn 3.375 Gm Premix) 50 ml @ 100 mls/hr Q8H IV Last administered on 02/25/16at 08:28; Start 02/20/16 at 09:00; Stop at 09:02; Status DC Propofol (Diprivan 200 Mg/20 ml Inj) 400 mg STK-MED ONCE IV ; Start 02/16/16 at 12:00; Stop 02/20/16 at 08:25; Status DC Phenylephrine HCl 2000 mcg 2,000 mcg STK-MED ONCE IV ; Start 02/16/16 at 12:00; Stop 02/20/16 at 08:25; Status DC Lactated Ringer's 2,000 ml @ As Directed STK-MED ONCE IV ; Start 02/16/16 at 12 :00; Stop 02/20/16 at 08:25; Status DC Parenteral Electrolytes 1,000 ml @ As Directed STK-MED ONCE IV ; Start at 12:00; Stop 02/20/16 at 08:25; Status DC Vancomycin HCl/ Sodium Chloride (Vancomycin Inj/ NS 500 ml Inj) 500 ml @ 250 mls/hr Q12H IV Last administered on 02/22/16at 11:52; Start 02/20/16 at 11:00; Stop 02/22/16 at 13:01; Status DC Miscellaneous Information SPECIFIC LAB TO BE DRAWN:VANCOMYCIN TROUGH DATE TO... ONCE ONCE XX Last administered on 02/22/16at 11:15; Start 02/22/16 at 10:45; Stop 02/22/16 at 10:46; Status DC Midazolam HCl (Versed Inj) 10 mg ONCE ONCE IV PUSH Last administered on at 15:15; Start 02/21/16 at 15:15; Stop 02/21/16 at 15:16; Status DC Vecuronium [place] (Norcuron 10 Mg Inj) 10 mg ONCE ONCE IV PUSH Last administered on 02/21/16at 15:15; Start 02/21/16 at 15:15; Stop 02/21/16 at 15:16; Status DC Fentanyl Citrate 250 mcg 250 mcg ONCE ONCE IV PUSH Last administered on at 15:15; Start 02/21/16 at 15:15; Stop 02/21/16 at 15:16; Status DC Norepinephrine Bitartrate (Levophed-Dextrose Drip) 250 ml @ 0 mls/hr TITRATE IV Last administered on 02/26/16at 21:49; Start 02/21/16 at 15:15; Stop 03/02/16 at 16:33; Status DC Terbutaline Sulfate (Brethine Inj) 1 mg UNSCH PRN SQ For Extravasation; Start 02/21/16 at 15:15; Stop 03/07/16 at 07:46; Status DC Albumin Human 12.5 gm 12.5 gm NOW ONCE IV Last administered on 02/21/16at 21:34 ; Start 02/21/16 at 21:15; Stop 02/21/16 at 21:16; Status DC Magnesium Sulfate/ Dextrose (Magnesium Sulfate 1 Gm Premix) 100 ml @ 100 mls/ hr Q1H IV Last administered on 02/21/16at 22:21; Start 02/21/16 at 21:15; Stop 02/21/16 at 23:14; Status DC Proparacaine HCl (Alcaine 0.5% Opht Soln) 1 drop ONCE ONCE LEFT EYE ; Start 02/22/16 at 06:30; Stop 02/22/16 at 06:31; Status Cancel Tropicamide (Mydriacyl 1% Opth Soln) 1 drop Q5M LEFT EYE ; Start 02/22/16 at 06: 30; Stop 02/22/16 at 06:46; Status Cancel Phenylephrine HCl (Neofrin 10% Opth Soln) 1 drop Q5M LEFT EYE ; Start 02/22/16 at 06:30; Stop 02/22/16 at 06:46; Status Cancel Cyclopentolate HCl (Cyclogyl 1% Opth Soln) 1 drop Q5M LEFT EYE ; Start 02/22/16 at 06:30; Stop 02/22/16 at 06:46; Status Cancel Flurbiprofen Sodium (Ocufen 0.03% Opht Soln) 1 drop Q5M LEFT EYE ; Start at 06:30; Stop 02/22/16 at 06:46; Status Cancel Lidocaine HCl 5 ml 5 ml ONCE ONCE TOPICAL ; Start 02/22/16 at 06:30; Stop at 06:31; Status Cancel Vancomycin HCl/ Sodium Chloride (Vancomycin Inj/ NS 500 ml Inj) 500 ml @ 250 mls/hr Q12H IV Last administered on 02/25/16at 00:58; Start 02/23/16 at 00:00; Stop 02/25/16 at 09:02; Status DC Miscellaneous Information SPECIFIC LAB TO BE JOSE F... ONCE ONCE XX ; Start at 23:45; Stop 02/23/16 at 23:46; Status DC Labetalol HCl (Trandate Inj) 20 mg Q2H PRN IV PUSH SBP > 160 Last administered on 03/21/16at 01:04; Start 02/22/16 at 15:00 Metoprolol Tartrate (Lopressor) 25 mg Q12HR PO Last administered on 02/23/16at 08 :31; Start 02/23/16 at 09:00; Stop 02/23/16 at 09:00; Status DC Lisinopril (Prinivil) 5 mg DAILY PO Last administered on 02/25/16at 08:28; Start 02/23/16 at 09:00; Stop 02/25/16 at 09:02; Status DC Hydralazine HCl (Apresoline Inj) 10 mg Q4H PRN IV PUSH SBP > 170 Last administered on 03/20/16at 09:25; Start 02/22/16 at 15:00 Alteplase, Recombinant (Cathflo Activase Inj) 2 mg ONCE IV FLUSH Last administered on 02/22/16at 23:36; Start 02/22/16 at 22:30; Stop 02/22/16 at 23:30; Status DC Alteplase, Recombinant (Cathflo Activase Inj) 2 mg ONCE IV FLUSH Last administered on 02/23/16at 01:49; Start 02/22/16 at 22:30; Stop 02/22/16 at 23:30; Status DC Alteplase, Recombinant (Cathflo Activase Inj) 2 mg ONCE IV FLUSH Last administered on 02/23/16at 02:51; Start 02/22/16 at 22:30; Stop 02/22/16 at 23:30; Status DC Metoprolol Tartrate (Lopressor) 75 mg Q12HR PO Last administered on 02/25/16at 20 :12; Start 02/23/16 at 21:00; Stop 02/26/16 at 09:26; Status DC Clonidine (Catapres) 0.2 mg Q8HR PO Last administered on 02/25/16at 20:12; Start 02/23/16 at 09:00; Stop 02/26/16 at 09:26; Status DC Metoprolol Tartrate (Lopressor) 50 mg NOW ONCE PO Last administered on at 09:10; Start 02/23/16 at 09:15; Stop 02/23/16 at 09:16; Status DC Miscellaneous Information SPECIFIC LAB TO BE [facility] ... ONCE ONCE XX ; Start at 11:45; Stop 02/25/16 at 11:46; Status DC Lisinopril 10 mg 10 mg DAILY PO Last administered on 02/25/16at 10:13; Start 02/24 at 09:00; Stop 02/26/16 at 09:26; Status DC Ceftriaxone Sodium/Sodium Chloride (Rocephin Inj/NS Inj) 100 ml @ 200 mls/hr Q24H IV Last administered on 03/09/16at 08:41; Start 02/25/16 at 09:00; Stop at 15:55; Status DC Amlodipine Besylate (Norvasc) 5 mg DAILY PO Last administered on 02/25/16at 10:13 ; Start 02/25/16 at 09:00; Stop 02/26/16 at 09:26; Status DC Furosemide (Lasix) 20 mg DAILY PO Last administered on 02/26/16at 10:46; Start at 09:15; Stop 02/27/16 at 07:40; Status DC Albumin Human 12.5 gm 12.5 gm NOW ONCE IV Last administered on 02/26/16at 00:41 ; Start 02/26/16 at 00:45; Stop 02/26/16 at 00:46; Status DC Sodium Chloride 500 ml @ 35 mls/hr Q14H IV Last administered on 03/01/16at 03: 42; Start 02/26/16 at 04:30; Stop 03/01/16 at 08:05; Status DC Sodium Chloride 240 meq/Syringe / Bag 60 ml @ 120 mls/hr ONCE ONCE IV Last administered on 02/26/16at 17:00; Start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
[2016-03-21] MEDS: hydrALAZINE HCL 20 MG/ML VIAL IV PUSH PRN (11:31)
[2016-03-22] VITALS (14 sets, daily range): BP systolic 144–185; BP diastolic 72–95; PULSE 68–91; RESP 19–32; TEMP 98.1–98.9; O2SAT 96–100
[2016-03-22] MEDS: CHLORHEXIDINE GLUCONATE 2 % 1 PACK (2 CLOTHS) TOP SCH ×2 (04:00→21:24)
[2016-03-22] MEDS: METOPROLOL TARTRATE 50 MG TAB PEG SCH ×3 (05:12→22:30)
[2016-03-22] MEDS: hydrALAZINE HCL 25 MG TAB PO SCH ×3 (05:12→22:30)
[2016-03-22] MEDS: FREE WATER G-TUBE SCH ×3 (05:13→21:23)
[2016-03-22] MEDS: SODIUM CHLORIDE 0.9% FLUSH 5 ML FLUSH IVF SCH ×2 (08:11→21:21)
[2016-03-22] MEDS: LANSOPRAZOLE SOLUTAB 30 MG TAB NG SCH (08:11)
[2016-03-22] MEDS: CHLORHEXIDINE 0.12% (ORAL KIT) 15 ML CUP MT SCH ×2 (08:12→21:21)
[2016-03-22] MEDS: ENOXAPARIN SODIUM 30 MG/0.3 ML SYRINGE SQ SCH ×2 (08:12→21:22)
[2016-03-22] MEDS: levETIRAcetam 500 MG/5 ML UDC TUBE SCH ×2 (08:12→21:22)
[2016-03-22] MEDS: METHADONE HCL 10 MG/10 ML ORAL SOLUTION PO SCH ×2 (08:12→21:23)
--- NOTE | 2016-03-22 13:44 | HHI.PR ---
Subjective Remarks patient in no acute distress. awake and afebrile. d/w the RN and no acute issues over night. Objective Vitals Vital Signs Date Time Temp Pulse Resp B/P Pulse Ox O2 Delivery O2 Flow Rate FiO2 03/22/16 12:00 98.6 73 20 149/78 100 03/22/16 12:00 73 03/22/16 10:00 82 03/22/16 09:12 21 03/22/16 08:39 98 T-piece 5.00 28 03/22/16 08:00 98.1 73 24 185/95 98 03/22/16 08:00 76 03/22/16 07:00 100 T-Piece 6.00 35 03/22/16 06:00 69 03/22/16 04:00 98.6 76 19 144/72 97 03/22/16 04:00 76 03/22/16 02:00 82 03/22/16 00:00 85 03/22/16 00:00 98.3 85 24 158/89 97 03/21/16 22:00 70 03/21/16 20:00 96 03/21/16 20:00 98 T-piece 5.00 28 03/21/16 20:00 98.0 96 24 155/84 98 03/21/16 19:00 98 T-Piece 28 03/21/16 18:00 89 03/21/16 16:00 97.9 91 21 134/95 98 03/21/16 16:00 91 03/21/16 14:00 86 I/O 03/21/16 03/21/16 03/21/16 03/22/16 03/22/16 03/22/16 07:00 15:00 23:00 07:00 15:00 23:00 Intake Total 368 ml 466 ml 460 ml 469 ml Output Total 750 ml 325 ml 700 ml 0 ml Balance -382 ml 141 ml -240 ml 469 ml Tube Feeding 368 ml 466 ml 460 ml 469 ml Output Urine Total 750 ml 325 ml 700 ml Tube Feeding Residual Discard 0 ml 0 ml 0 ml 0 ml # Voids 1 # Bowel Movements 2 1 1 0 Result Diagram: 03/21/16 0440 03/21/16 0440 Imaging Last Impressions Liver Ultrasound 03/18/16 0000 Signed Impressions: Service Date/Time: Friday, March 18, 2016 17:01 - CONCLUSION: Ultrasound appearance of the liver and other right upper quadrant structures is within normal limits. Duy Skelton MD Chest X-Ray 03/17/16 0600 Signed Impressions: Service Date/Time: Thursday, March 17, 2016 05:23 - CONCLUSION: Increasing linear density in the left perihilar region. Improving densities in the left upper lobe and right lung Norman Pineda MD Head CT 03/09/16 0600 Signed Impressions: Service Date/Time: Wednesday, March 09, 2016 04:21 - CONCLUSION: 1. Mild improvement of the cerebral edema in the left cerebral hemisphere. 2. Otherwise , no other new or significant changes. Alli Jj MD Head CTA 02/16/16 0000 Signed Impressions: Service Date/Time: Tuesday, February 16, 2016 04:31 - CONCLUSION: I do not see an etiology for the patient's cerebellar hemorrhage on the right. Small supratentorial vessels in a 65-year-old. Etiology of this finding is not apparent. Trace subdural blood and subarachnoid blood persist over both convexities. Earl Gaitan MD FACR Cervical Spine CT 02/15/16 0445 Signed Impressions: Service Date/Time: January 04:57 - CONCLUSION: 1. Slight neural foramina compromise bilateral C4-5 and C5-6 in addition to bilateral lateral recess compromise at these levels and no significant thecal sac stenosis. 2. There is also slight neural foramina compromise right C3-C4. 3. Nonspecific lucencies in the spine may be osteoporotic changes, however myeloma is difficult to exclude. Ariadne Feng MD Objective Remarks GENERAL: This is a well-nourished, well-developed patient, in no apparent distress. HEENT/Neck; s/p craniotomy/ trach in place CARDIOVASCULAR: Regular rate and regular rhythm without murmurs, gallops, or rubs. RESPIRATORY: Clear to auscultation. Breath sounds equal bilaterally. No wheezes , rales, or rhonchi. GASTROINTESTINAL: Abdomen soft, non-tender, nondistended. Normal, active bowel sounds-PEG in place MUSCULOSKELETAL: Extremities without clubbing, cyanosis, or edema. NEURO: awake Procedures craniotomy central line placement PEG placement tracheostomy Medications and IVs Current Medications IV Flush 2 ml 2 ml UNSCH PRN IVF FLUSH AFTER USING IV ACCESS; Start 02/15/16 at 00:45; Stop 02/15/16 at 04:08; Status DC Sodium Chloride (NS 1000 ml Inj) 1,000 ml @ 1,000 mls/hr Q1H IV Last administered on 02/15/16at 00:50; Start 02/15/16 at 00:43; Stop 02/15/16 at 01:42 ; Status DC Promethazine HCl (Phenergan Inj) 25 mg ONCE ONCE IM Last administered on at 00:50; Start 02/15/16 at 00:45; Stop 02/15/16 at 00:46; Status DC IV Flush (NS Flush) 2 ml UNSCH PRN IVF FLUSH AFTER USING IV ACCESS; Start 02/14 at 02:00; Stop 02/15/16 at 04:08; Status DC Rocuronium [place] (Zemuron Inj) 50 mg BOLUS ONCE IV Last administered on 02/14at 03:06; Start 02/15/16 at 02:30; Stop 02/15/16 at 02:31; Status DC Etomidate (Amidate Inj) 20 mg ONCE ONCE IV PUSH Last administered on at 03:07; Start 02/15/16 at 02:30; Stop 02/15/16 at 02:31; Status DC Rocuronium [place] 100 mg 100 mg STK-MED ONCE .ROUTE ; Start 02/15/16 at 02:22; Stop 02/15/16 at 02:23; Status DC Propofol (Diprivan 1000 Mg/100ml Inj) 100 ml @ As Directed STK-MED ONCE .ROUTE ; Start 02/15/16 at 02:25; Stop 02/15/16 at 02:26; Status DC Mannitol 25 gm 25 gm ONCE ONCE IV Last administered on 02/15/16at 03:09; Start 02/15/16 at 02:30; Stop 02/15/16 at 02:31; Status DC Propofol (Diprivan 1000 Mg/100ml Inj) 100 ml @ 0 mls/hr TITRATE IV Last administered on 02/15/16at 03:08; Start 02/15/16 at 02:45; Stop 02/15/16 at 11:04 ; Status DC Hydromorphone HCl 1 mg 1 mg ONCE ONCE IV PUSH Last administered on 02/15/16at 03:07; Start 02/15/16 at 03:00; Stop 02/15/16 at 03:01; Status DC Clevidipine (Cleviprex Inj) 50 ml @ 0 mls/hr TITRATE IV Last administered on at 04:15; Start 02/15/16 at 03:45; Stop 02/15/16 at 14:24; Status DC Hydralazine HCl (Apresoline Inj) 20 mg STK-MED ONCE .ROUTE ; Start 02/15/16 at 03:56; Stop 02/15/16 at 03:57; Status DC Hydralazine HCl 20 mg 20 mg ONCE ONCE IV PUSH Last administered on 02/15/16at 04:14; Start 02/15/16 at 04:00; Stop 02/15/16 at 04:09; Status DC Sodium Chloride (NS 1000 ml Inj) 1,000 ml @ 75 mls/hr [id number] IV Last administered on 02/15/16at 04:35; Start 02/15/16 at 03:58; Stop 02/17/16 at 07:41 ; Status DC IV Flush (NS Flush) 2 ml UNSCH PRN IVF FLUSH AFTER USING IV ACCESS; Start 02/14 at 04:00; Stop 02/21/16 at 15:14; Status DC IV Flush (NS Flush) 2 ml BID IVF Last administered on 02/21/16at 08:50; Start at 09:00; Stop 02/21/16 at 15:14; Status DC Pantoprazole Sodium (Protonix Inj) 40 mg DAILY IV Last administered on at 09:53; Start 02/15/16 at 09:00; Stop 02/28/16 at 07:46; Status DC Albuterol/ Ipratropium (Duoneb Neb) 1 ampule Q4HR NEB INH Last administered on 02/19/16at 03:03; Start 02/15/16 at 04:00; Stop 02/19/16 at 04:00; Status DC Albuterol/ Ipratropium (Duoneb Neb) 1 ampule Q2HR NEB PRN INH WHEEZING Last administered on 03/02/16at 10:54; Start 02/15/16 at 04:00 Miscellaneous Information 1 [id number] XX ; Start 02/15/16 at 04:00 Chlorhexidine Gluconate (Chlorhexidine 2% Cloth) Taper DAILY@04 TOP Last administered on 03/20/16at 04:41; Start 02/15/16 at 04:00; Stop 02/10/17 at 03:59 Chlorhexidine Gluconate (Chlorhexidine 2% Cloth) 3 pack UNSCH PRN TOP HYGIENIC CARE; Start 02/15/16 at 04:00 Chlorhexidine Gluconate 15 ml 15 ml BID@08,20 MT Last administered on 03/22/16at 08:12; Start 02/15/16 at 08:00 Propofol 100 ml @ 0 mls/hr TITRATE IV Last administered on 03/07/16at 09:51; Start 02/15/16 at 04:00; Stop 03/08/16 at 15:00; Status DC Fentanyl Citrate 250 ml @ 0 mls/hr TITRATE IV Last administered on 03/02/16at 06 :29; Start 02/15/16 at 04:00; Stop 03/02/16 at 09:35; Status DC Nicardipine HCl/ Sodium Chloride (Cardene Inj/NS 250 ml Inj) 260 ml @ 0 mls/hr TITRATE IV Last administered on 02/15/16at 12:15; Start 02/15/16 at 04:15; Stop 02/18/16 at 06:47; Status DC Metoprolol Tartrate (Lopressor Inj) 5 mg ONCE PRN IV PUSH SBP>160, DBP>90; Start 02/15/16 at 04:15; Stop 02/15/16 at 06:28; Status DC Mannitol 25 gm 25 gm Q6H IV Last administered on 02/18/16at 06:44; Start at 07:00; Stop 02/20/16 at 19:37; Status DC Midazolam HCl (Versed Inj) 100 ml @ 10 mls/hr CONTINUOUS IV Last administered on 03/04/16at 21:47; Start 02/15/16 at 10:45; Stop 03/07/16 at 07:46; Status DC Vecuronium [place] (Norcuron 20 Mg Inj) 20 mg ONCE ONCE IV PUSH ; Start at 10:45; Stop 02/15/16 at 10:47; Status DC Vecuronium [place] 10 mg 10 mg STK-MED ONCE .ROUTE ; Start 02/15/16 at 13:07; Stop 02/15/16 at 13:08; Status DC Sodium Chloride 1,000 ml @ 100 mls/hr Q10H IV Last administered on 02/16/16at 08:57; Start 02/15/16 at 13:39; Stop 02/17/16 at 07:41; Status DC Cefazolin Sodium/ Dextrose 50 ml @ 150 mls/hr ONCE ONCE IV ; Start 02/15/16 at 13:45; Stop 02/15/16 at 14:04; Status Cancel Vancomycin HCl/ Sodium Chloride (Vancomycin Inj/ NS 250 ml Inj) 250 ml @ 250 mls/hr ONCE ONCE IV ; Start 02/15/16 at 13:45; Stop 02/15/16 at 14:44; Status Cancel Chlorhexidine Gluconate 1 applic 1 applic HS TOP ; Start 02/15/16 at 21:00; Stop 02/16/16 at 21:01; Status DC Cefazolin Sodium/ Dextrose 50 ml @ 100 mls/hr [employer] IV Last administered on 02/16/16at 07:50; Start 02/16/16 at 06:00; Stop 02/18/16 at 05:59; Status DC Vancomycin HCl/ Sodium Chloride (Vancomycin Inj/ NS 250 ml Inj) 250 ml @ 250 mls/hr [employer] IV Last administered on 02/16/16at 08:42; Start 02/16/16 at 06: 00; Stop 02/18/16 at 05:59; Status DC Lidocaine/ Epinephrine (Xylocaine-Epi 1%-1:100,000 Inj) 30 ml STK-MED ONCE .ROUTE Last administered on 02/16/16at 09:08; Start 02/16/16 at 07:16; Stop at 07:17; Status DC Thrombin 42870 units 10,000 units STK-MED ONCE .ROUTE Last administered on 02/15at 10:32; Start 02/16/16 at 07:17; Stop 02/16/16 at 07:18; Status DC Levetriacetam (Keppra 500 Mg Premix Inj) 100 ml @ As Directed STK-MED ONCE IV ; Start 02/16/16 at 07:17; Stop 02/16/16 at 07:18; Status DC Gelatin (Gelfoam 100 Top) 1 foam STK-MED ONCE .ROUTE Last administered on at 10:29; Start 02/16/16 at 07:17; Stop 02/16/16 at 07:18; Status DC Furosemide (Lasix Inj) 40 mg STK-MED ONCE .ROUTE ; Start 02/16/16 at 07:17; Stop 02/16/16 at 07:18; Status DC Bacitracin (Baciguent Oint) 15 applic STK-MED ONCE .ROUTE Last administered on 02/16/16at 10:29; Start 02/16/16 at 07:18; Stop 02/16/16 at 07:19; Status DC Gentamicin Sulfate 240 mg 240 mg STK-MED ONCE .ROUTE Last administered on at 10:30; Start 02/16/16 at 07:18; Stop 02/16/16 at 07:19; Status DC Sodium Chloride (NS 250 ml Inj) 250 ml @ As Directed STK-MED ONCE .ROUTE ; Start 02/16/16 at 07:18; Stop 02/16/16 at 07:19; Status DC Vancomycin HCl (Vancomycin Inj) 2,000 mg STK-MED ONCE .ROUTE ; Start 02/16/16 at 07:40; Stop 02/16/16 at 07:41; Status DC Thrombin (Thrombin Top Soln) 10,000 units STK-MED ONCE .ROUTE Last administered on 02/16/16at 10:32; Start 02/16/16 at 09:49; Stop 02/16/16 at 09:50 ; Status DC Gelatin 1 foam 1 foam STK-MED ONCE .ROUTE ; Start 02/16/16 at 11:08; Stop at 11:09; Status DC Potassium Chloride/Sodium Chloride (NS + KCl 20 Meq Inj) 1,000 ml @ 100 mls/hr Q10H IV Last administered on 02/17/16at 20:23; Start 02/16/16 at 11:45; Stop at 06:47; Status DC IV Flush (NS Flush) 2 ml UNSCH PRN IVF FLUSH AFTER USING IV ACCESS Last administered on 03/04/16at 17:14; Start 02/16/16 at 11:45 IV Flush 2 ml 2 ml BID IVF Last administered on 03/21/16at 21:04; Start at 21:00 Cefazolin Sodium/ Dextrose 50 ml @ 100 mls/hr Q8H IV Last administered on 02/16at 07:31; Start 02/16/16 at 16:00; Stop 02/17/16 at 08:29; Status DC Levetriacetam (Keppra 500 Mg Premix Inj) 100 ml @ 400 mls/hr Q12H IV Last administered on 02/27/16at 22:20; Start 02/16/16 at 11:45; Stop 02/28/16 at 07:46; Status DC Bisacodyl (Dulcolax Supp) 10 mg DAILY PRN ND CONSTIPATION Last administered on 02/21/16at 06:05; Start 02/16/16 at 11:45 Docusate Sodium (Colace) 100 mg BID PO Last administered on 02/19/16at 21:02; Start 02/16/16 at 21:00; Stop 02/20/16 at 06:51; Status DC Pantoprazole Sodium (Protonix) 40 mg DAILY PO ; Start 02/17/16 at 09:00; Stop at 06:48; Status DC Pantoprazole Sodium (Protonix Inj) 40 mg DAILY IVP ; Start 02/17/16 at 09:00; Stop 02/18/16 at 06:48; Status DC Ondansetron HCl (Zofran Inj) 4 mg Q6H PRN IV NAUSEA OR VOMITING; Start at 11:45 Calcium Gluconate 1 gm 1 gm UNSCH PRN IV SEE LABEL COMMENTS; Start 02/16/16 at 11:45; Stop 02/27/16 at 15:15; Status DC Potassium Chloride 100 ml @ 50 mls/hr UNSCH PRN IV POTASSIUM LESS THAN 4 Last administered on 02/18/16at 17:59; Start 02/16/16 at 11:45 Magnesium Sulfate/ Sodium Chloride (Magnesium Sulfate Inj/NS Inj) 108 ml @ 108 mls/hr UNSCH PRN IV MAGNESIUM LESS THAN 2; Start 02/16/16 at 11:45; Stop at 07:46; Status DC Acetaminophen/ Hydrocodone Bitart ([place] 10-325 Mg) 1 tab Q4H PRN PO PAIN SCALE 1 TO 5; Start 02/16/16 at 11:45; Stop 02/27/16 at 15:15; Status DC Acetaminophen/ Hydrocodone Bitart ([place] 10-325 Mg) 2 tab Q4H PRN PO PAIN SCALE 6 TO 10 Last administered on 02/26/16at 16:56; Start 02/16/16 at 11:45; Stop 02/27/16 at 15:15; Status DC Morphine Sulfate (Morphine Inj) 2 mg Q2H PRN IV PUSH PAIN SCALE 1 TO 6 Last administered on 02/20/16at 01:03; Start 02/16/16 at 11:45; Stop 02/27/16 at 15:15 ; Status DC Morphine Sulfate (Morphine Inj) 4 mg Q2H PRN IV PUSH PAIN SCALE 7 TO 10 Last administered on 02/27/16at 02:45; Start 02/16/16 at 11:45; Stop 02/27/16 at 15:15; Status DC Acetaminophen (Tylenol) 650 mg Q4H PRN PO TEMPERATURE > 101.5 F Last administered on 03/06/16at 11:19; Start 02/16/16 at 11:45; Stop 03/19/16 at 09:23 ; Status DC Miscellaneous Information ALL NURSING DEPARTME... UNSCH PRN XX SEE LABEL COMMENTS; Start 02/16/16 at 12:45; Stop 02/17/16 at 12:44; Status DC Fentanyl Citrate (Sublimaze Inj) 500 mcg STK-MED ONCE .ROUTE ; Start 02/16/16 at 13:01; Stop 02/16/16 at 13:02; Status DC Norepinephrine Bitartrate 4 mg 4 mg STK-MED ONCE .ROUTE Last administered on at 07:27; Start 02/17/16 at 07:27; Stop 02/17/16 at 07:28; Status DC Sodium Chloride 1,000 ml @ 1,000 mls/hr Q1H ONCE IV Last administered on at 08:15; Start 02/17/16 at 08:15; Stop 02/17/16 at 09:14; Status DC Norepinephrine Bitartrate (Levophed-Dextrose Drip) 250 ml @ 0 mls/hr TITRATE IV ; Start 02/17/16 at 07:45; Stop 02/17/16 at 16:32; Status DC Terbutaline Sulfate (Brethine Inj) 1 mg UNSCH PRN SQ For Extravasation; Start 02/17/16 at 07:45; Stop 02/21/16 at 15:14; Status DC Chlordiazepoxide (Librium) 50 mg Q8H PO Last administered on 02/20/16at 01:03; Start 02/17/16 at 08:00; Stop 02/20/16 at 07:59; Status DC Iohexol (Omnipaque 350 Inj) 71 ml STK-MED ONCE IV Last administered on at 04:31; Start 02/16/16 at 04:31; Stop 02/17/16 at 08:10; Status DC Norepinephrine Bitartrate 4 mg 4 mg STK-MED ONCE .ROUTE ; Start 02/17/16 at 14: 33; Stop 02/17/16 at 14:34; Status DC Norepinephrine Bitartrate 4 mg/ Sodium Chloride 254 ml @ 0 mls/hr TITRATE IV Last administered on 02/20/16at 16:36; Start 02/17/16 at 17:00; Stop 02/21/16 at 15:14; Status DC Sodium Chloride (Sodium Chloride 3% Inj) 500 ml @ 30 mls/hr CONTINUOUS IV Last administered on 02/19/16at 02:14; Start 02/18/16 at 06:15; Stop 02/19/16 at 07:26; Status DC Metoclopramide HCl (Reglan Inj) 10 mg Q8HR IV PUSH Last administered on at 04:31; Start 02/18/16 at 06:45; Stop 02/28/16 at 07:46; Status DC Lactulose (Lactulose Liq) 30 ml DAILY PO Last administered on 02/26/16at 10:46; Start 02/18/16 at 09:00; Stop 02/27/16 at 09:03; Status DC Furosemide 40 mg 40 mg ONCE ONCE IV PUSH Last administered on 02/18/16at 07:25 ; Start 02/18/16 at 06:45; Stop 02/18/16 at 06:49; Status DC Magnesium Sulfate/ Dextrose (Magnesium Sulfate 1 Gm Premix) 100 ml @ 100 mls/ hr Q1H IV Last administered on 02/18/16at 08:00; Start 02/18/16 at 07:00; Stop 02/18/16 at 08:59; Status DC Metoclopramide HCl 10 mg 10 mg Q8HR IM ; Start 02/18/16 at 09:00; Stop 02/18/16 at 10:36; Status DC Sodium Chloride 240 meq/Syringe / Bag 60 ml @ 0 mls/hr ONCE ONCE IV Last administered on 02/18/16at 10:38; Start 02/18/16 at 12:00; Stop 02/18/16 at 12:01 ; Status DC Potassium Chloride 100 ml @ 25 mls/hr Q4H IV ; Start 02/18/16 at 19:45; Stop at 19:45; Status DC Potassium Chloride 30 meq/ Sodium Chloride 115 ml @ 38.333 mls/ hr Q3H IV Last administered on 02/18/16at 23:15; Start 02/18/16 at 21:00; Stop 02/19/16 at 02:59; Status DC Potassium Phosphate/Sodium Chloride (Potassium Phosphate Inj/NS Inj) 155 ml @ 38.75 mls/ hr ONCE ONCE IV Last administered on 02/18/16at 20:07; Start at 21:00; Stop 02/19/16 at 00:59; Status DC Calcium Chloride 1 gm 1 gm ONCE ONCE IV PUSH Last administered on 02/18/16at 20 :06; Start 02/18/16 at 20:00; Stop 02/18/16 at 20:01; Status DC Potassium Chloride (KCl 40 Meq Premix Inj) 100 ml @ 25 mls/hr BOLUS ONCE IV Last administered on 02/19/16at 05:43; Start 02/19/16 at 05:30; Stop 02/19/16 at 09:29; Status DC Potassium Chloride 40 meq 40 meq ONCE ONCE PO Last administered on 02/19/16at 05:42; Start 02/19/16 at 05:30; Stop 02/19/16 at 05:31; Status DC Potassium Chloride 100 ml @ 50 mls/hr Q2H PRN IV For Potassium 2.8 - 3.2 mEq/ L Last administered on 02/26/16at 10:47; Start 02/19/16 at 07:30 Potassium Chloride (KCl 20 Meq Premix Inj) 100 ml @ 50 mls/hr Q2H PRN IV For Potassium 2.8 - 3.2 mEq/L; Start 02/19/16 at 07:30 Potassium Chloride 40 meq 40 meq UNSCH PRN PO/TUBE For Potassium 3.3 - 3.5 mEq/ L Last administered on 03/03/16at 09:31; Start 02/19/16 at 07:30 Potassium Chloride 100 ml @ 25 mls/hr UNSCH PRN IV For Potassium 3.3 - 3.5 mEq /L Last administered on 02/29/16at 06:47; Start 02/19/16 at 07:30 Potassium Chloride 100 ml @ 50 mls/hr Q2H PRN IV For Potassium 3.3 - 3.5 mEq/L ; Start 02/19/16 at 07:30 Magnesium Sulfate/ Sodium Chloride (Magnesium Sulfate Inj/NS Inj) 100 ml @ 50 mls/hr UNSCH PRN IV For Magnesium 0.9 - 1.1 mg/dL; Start 02/19/16 at 07:30 Magnesium Oxide 800 mg 800 mg UNSCH PRN PO For Magnesium 1.2 - 1.6 mg/dL; Start 02/19/16 at 07:30 Magnesium Sulfate/ Sodium Chloride (Magnesium Sulfate Inj/NS Inj) 100 ml @ 50 mls/hr UNSCH PRN IV For Magnesium 1.2 - 1.6 mg/dL; Start 02/19/16 at 07:30 Potassium Phosphate 2000 mg 2,000 mg Q4H PRN PO For Phosphorus < 2.5 mg/dL; Start 02/19/16 at 07:30 Sodium Phosphate/ Sodium Chloride (Sodium Phosphate Inj/NS 250 ml Inj) 250 ml @ 42 mls/hr UNSCH PRN IV For Phosphorus < 2.5 mg/dL; Start 02/19/16 at 07:30 Potassium Chloride (KCl 40 Meq/30 ml Liq) 40 meq UNSCH PRN PO/TUBE SEE LABEL COMMENTS; Start 02/19/16 at 07:30 Potassium Phosphate 2000 mg 2,000 mg UNSCH PRN PO/TUBE SEE LABEL COMMENTS; Start 02/19/16 at 07:30 Potassium Phosphate 30 mmol/ Sodium Chloride 260 ml @ 42 mls/hr UNSCH PRN IV SEE LABEL COMMENTS; Start 02/19/16 at 07:30 Sodium Chloride (NS 250 ml Inj) 250 ml @ As Directed STK-MED ONCE .ROUTE ; Start 02/19/16 at 21:51; Stop 02/19/16 at 21:52; Status DC Norepinephrine Bitartrate (Levophed Inj) 4 mg STK-MED ONCE .ROUTE ; Start at 21:51; Stop 02/19/16 at 21:52; Status DC Docusate Sodium (Colace Liq) 100 mg BID NG Last administered on 03/18/16at 08:07 ; Start 02/20/16 at 09:00; Stop 03/18/16 at 15:25; Status DC Polyethylene Glycol 17 gm 17 gm DAILY PO Last administered on 02/26/16at 10:47; Start 02/20/16 at 09:00; Stop 02/27/16 at 09:03; Status DC Pharmacy Profile Note 0 ml @ 0 mls/hr UNSCH XX ; Start 02/20/16 at 08:15; Stop 02/25/16 at 09:02; Status DC Piperacillin Sod/ Tazobactam Sod (Zosyn 3.375 Gm Premix) 50 ml @ 100 mls/hr Q8H IV Last administered on 02/25/16at 08:28; Start 02/20/16 at 09:00; Stop at 09:02; Status DC Propofol (Diprivan 200 Mg/20 ml Inj) 400 mg STK-MED ONCE IV ; Start 02/16/16 at 12:00; Stop 02/20/16 at 08:25; Status DC Phenylephrine HCl 2000 mcg 2,000 mcg STK-MED ONCE IV ; Start 02/16/16 at 12:00; Stop 02/20/16 at 08:25; Status DC Lactated Ringer's 2,000 ml @ As Directed STK-MED ONCE IV ; Start 02/16/16 at 12 :00; Stop 02/20/16 at 08:25; Status DC Parenteral Electrolytes 1,000 ml @ As Directed STK-MED ONCE IV ; Start at 12:00; Stop 02/20/16 at 08:25; Status DC Vancomycin HCl/ Sodium Chloride (Vancomycin Inj/ NS 500 ml Inj) 500 ml @ 250 mls/hr Q12H IV Last administered on 02/22/16at 11:52; Start 02/20/16 at 11:00; Stop 02/22/16 at 13:01; Status DC Miscellaneous Information SPECIFIC LAB TO BE DRAWN:VANCOMYCIN TROUGH DATE TO... ONCE ONCE XX Last administered on 02/22/16at 11:15; Start 02/22/16 at 10:45; Stop 02/22/16 at 10:46; Status DC Midazolam HCl (Versed Inj) 10 mg ONCE ONCE IV PUSH Last administered on at 15:15; Start 02/21/16 at 15:15; Stop 02/21/16 at 15:16; Status DC Vecuronium [place] (Norcuron 10 Mg Inj) 10 mg ONCE ONCE IV PUSH Last administered on 02/21/16at 15:15; Start 02/21/16 at 15:15; Stop 02/21/16 at 15:16; Status DC Fentanyl Citrate 250 mcg 250 mcg ONCE ONCE IV PUSH Last administered on at 15:15; Start 02/21/16 at 15:15; Stop 02/21/16 at 15:16; Status DC Norepinephrine Bitartrate (Levophed-Dextrose Drip) 250 ml @ 0 mls/hr TITRATE IV Last administered on 02/26/16at 21:49; Start 02/21/16 at 15:15; Stop 03/02/16 at 16:33; Status DC Terbutaline Sulfate (Brethine Inj) 1 mg UNSCH PRN SQ For Extravasation; Start 02/21/16 at 15:15; Stop 03/07/16 at 07:46; Status DC Albumin Human 12.5 gm 12.5 gm NOW ONCE IV Last administered on 02/21/16at 21:34 ; Start 02/21/16 at 21:15; Stop 02/21/16 at 21:16; Status DC Magnesium Sulfate/ Dextrose (Magnesium Sulfate 1 Gm Premix) 100 ml @ 100 mls/ hr Q1H IV Last administered on 02/21/16at 22:21; Start 02/21/16 at 21:15; Stop 02/21/16 at 23:14; Status DC Proparacaine HCl (Alcaine 0.5% Opht Soln) 1 drop ONCE ONCE LEFT EYE ; Start 02/22/16 at 06:30; Stop 02/22/16 at 06:31; Status Cancel Tropicamide (Mydriacyl 1% Opth Soln) 1 drop Q5M LEFT EYE ; Start 02/22/16 at 06: 30; Stop 02/22/16 at 06:46; Status Cancel Phenylephrine HCl (Neofrin 10% Opth Soln) 1 drop Q5M LEFT EYE ; Start 02/22/16 at 06:30; Stop 02/22/16 at 06:46; Status Cancel Cyclopentolate HCl (Cyclogyl 1% Opth Soln) 1 drop Q5M LEFT EYE ; Start 02/22/16 at 06:30; Stop 02/22/16 at 06:46; Status Cancel Flurbiprofen Sodium (Ocufen 0.03% Opht Soln) 1 drop Q5M LEFT EYE ; Start at 06:30; Stop 02/22/16 at 06:46; Status Cancel Lidocaine HCl 5 ml 5 ml ONCE ONCE TOPICAL ; Start 02/22/16 at 06:30; Stop at 06:31; Status Cancel Vancomycin HCl/ Sodium Chloride (Vancomycin Inj/ NS 500 ml Inj) 500 ml @ 250 mls/hr Q12H IV Last administered on 02/25/16at 00:58; Start 02/23/16 at 00:00; Stop 02/25/16 at 09:02; Status DC Miscellaneous Information SPECIFIC LAB TO BE JOSE F... ONCE ONCE XX ; Start at 23:45; Stop 02/23/16 at 23:46; Status DC Labetalol HCl (Trandate Inj) 20 mg Q2H PRN IV PUSH SBP > 160 Last administered on 03/21/16at 01:04; Start 02/22/16 at 15:00 Metoprolol Tartrate (Lopressor) 25 mg Q12HR PO Last administered on 02/23/16at 08 :31; Start 02/23/16 at 09:00; Stop 02/23/16 at 09:00; Status DC Lisinopril (Prinivil) 5 mg DAILY PO Last administered on 02/25/16at 08:28; Start 02/23/16 at 09:00; Stop 02/25/16 at 09:02; Status DC Hydralazine HCl (Apresoline Inj) 10 mg Q4H PRN IV PUSH SBP > 170 Last administered on 03/21/16at 11:31; Start 02/22/16 at 15:00 Alteplase, Recombinant (Cathflo Activase Inj) 2 mg ONCE IV FLUSH Last administered on 02/22/16at 23:36; Start 02/22/16 at 22:30; Stop 02/22/16 at 23:30; Status DC Alteplase, Recombinant (Cathflo Activase Inj) 2 mg ONCE IV FLUSH Last administered on 02/23/16at 01:49; Start 02/22/16 at 22:30; Stop 02/22/16 at 23:30; Status DC Alteplase, Recombinant (Cathflo Activase Inj) 2 mg ONCE IV FLUSH Last administered on 02/23/16at 02:51; Start 02/22/16 at 22:30; Stop 02/22/16 at 23:30; Status DC Metoprolol Tartrate (Lopressor) 75 mg Q12HR PO Last administered on 02/25/16at 20 :12; Start 02/23/16 at 21:00; Stop 02/26/16 at 09:26; Status DC Clonidine (Catapres) 0.2 mg Q8HR PO Last administered on 02/25/16at 20:12; Start 02/23/16 at 09:00; Stop 02/26/16 at 09:26; Status DC Metoprolol Tartrate (Lopressor) 50 mg NOW ONCE PO Last administered on at 09:10; Start 02/23/16 at 09:15; Stop 02/23/16 at 09:16; Status DC Miscellaneous Information SPECIFIC LAB TO BE JO[facility] F... ONCE ONCE XX ; Start at 11:45; Stop 02/25/16 at 11:46; Status DC Lisinopril 10 mg 10 mg DAILY PO Last administered on 02/25/16at 10:13; Start 02/24 at 09:00; Stop 02/26/16 at 09:26; Status DC Ceftriaxone Sodium/Sodium Chloride (Rocephin Inj/NS Inj) 100 ml @ 200 mls/hr Q24H IV Last administered on 03/09/16at 08:41; Start 02/25/16 at 09:00; Stop at 15:55; Status DC Amlodipine Besylate (Norvasc) 5 mg DAILY PO Last administered on 02/25/16 10:13 ; Start 02/25/16 at 09:00; Stop 02/26/16 at 09:26; Status DC Furosemide (Lasix) 20 mg DAILY PO Last administered on 02/26/16 10:46; Start at 09:15; Stop 02/27/16 at 07:40; Status DC Albumin Human 12.5 gm 12.5 gm NOW ONCE IV Last administered on 02/26/16at 00:41 ; Start 02/26/16 at 00:45; Stop 02/26/16 at 00:46; Status DC Sodium Chloride 500 ml @ 35 mls/hr Q14H IV Last administered on 03/01/16at 03: 42; Start 02/26/16 at 04:30; Stop 03/01/16 at 08:05; Status DC Sodium Chloride 240 meq/Syringe / Bag 60 ml @ 120 mls/hr ONCE ONCE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
[2016-03-23] VITALS (14 sets, daily range): BP systolic 97–155; BP diastolic 52–83; PULSE 69–100; RESP 17–22; TEMP 97.9–98.7; O2SAT 96–100
[2016-03-23] MEDS: hydrALAZINE HCL 20 MG/ML VIAL IV PUSH PRN (02:09)
[2016-03-23] MEDS: METOPROLOL TARTRATE 50 MG TAB PEG SCH ×3 (05:25→22:26)
[2016-03-23] MEDS: hydrALAZINE HCL 25 MG TAB PO SCH ×3 (05:25→22:26)
[2016-03-23] MEDS: FREE WATER G-TUBE SCH ×3 (05:25→22:26)
[2016-03-23] MEDS: CHLORHEXIDINE 0.12% (ORAL KIT) 15 ML CUP MT SCH ×2 (08:00→20:40)
[2016-03-23] MEDS: ENOXAPARIN SODIUM 30 MG/0.3 ML SYRINGE SQ SCH ×2 (08:21→20:42)
[2016-03-23] MEDS: levETIRAcetam 500 MG/5 ML UDC TUBE SCH ×2 (08:21→20:42)
[2016-03-23] MEDS: SODIUM CHLORIDE 0.9% FLUSH 5 ML FLUSH IVF SCH ×2 (08:22→20:41)
[2016-03-23] MEDS: METHADONE HCL 10 MG/10 ML ORAL SOLUTION PO SCH ×2 (08:22→20:41)
[2016-03-23] MEDS: LANSOPRAZOLE SOLUTAB 30 MG TAB NG SCH (08:22)
--- NOTE | 2016-03-23 09:58 | HHI.PR ---
Subjective Remarks in no acute distress.afebrile. d/w RN and no acute issues over night. Objective Vitals Vital Signs Date Time Temp Pulse Resp B/P Pulse Ox O2 Delivery O2 Flow Rate FiO2 03/23/16 08:00 98.2 100 20 138/76 98 03/23/16 08:00 83 03/23/16 07:32 96 T-piece 5.00 28 03/23/16 07:00 97 T-Piece 6.00 28 03/23/16 06:00 82 03/23/16 04:00 100 03/23/16 04:00 98.6 100 19 125/71 96 03/23/16 02:00 79 03/23/16 00:00 74 03/23/16 00:00 98.7 74 22 150/80 96 03/22/16 22:23 20 03/22/16 22:00 82 03/22/16 20:00 98.9 85 20 154/89 98 03/22/16 20:00 85 03/22/16 19:23 96 T-piece 28 03/22/16 19:00 96 T-Piece 6.00 28 03/22/16 18:00 79 03/22/16 16:00 91 03/22/16 16:00 98.9 91 32 158/86 96 03/22/16 14:00 68 03/22/16 12:00 98.6 73 20 149/78 100 03/22/16 12:00 73 03/22/16 10:00 82 I/O 03/22/16 03/22/16 03/22/16 03/23/16 03/23/16 03/23/16 07:00 15:00 23:00 07:00 15:00 23:00 Intake Total 469 ml 550 ml 550 ml 700 ml Output Total 0 ml 350 ml 500 ml 450 ml Balance 469 ml 200 ml 50 ml 250 ml Tube Feeding 469 ml 330 ml 300 ml 460 ml Other 220 ml 250 ml 240 ml Output Urine Total 350 ml 500 ml 450 ml Tube Feeding Residual Discard 0 ml # Voids 1 # Bowel Movements 0 2 0 0 Result Diagram: 03/21/16 0440 03/21/16 0440 Imaging Last Impressions Liver Ultrasound 03/18/16 0000 Signed Impressions: Service Date/Time: Friday, March 18, 2016 17:01 - CONCLUSION: Ultrasound appearance of the liver and other right upper quadrant structures is within normal limits. Duy Skelton MD Chest X-Ray 03/17/16 0600 Signed Impressions: Service Date/Time: Thursday, March 17, 2016 05:23 - CONCLUSION: Increasing linear density in the left perihilar region. Improving densities in the left upper lobe and right lung Norman iPneda MD Head CT 03/09/16 0600 Signed Impressions: Service Date/Time: Wednesday, March 09, 2016 04:21 - CONCLUSION: 1. Mild improvement of the cerebral edema in the left cerebral hemisphere. 2. Otherwise , no other new or significant changes. Alli Jj MD Head CTA 02/16/16 0000 Signed Impressions: Service Date/Time: Tuesday, February 16, 2016 04:31 - CONCLUSION: I do not see an etiology for the patient's cerebellar hemorrhage on the right. Small supratentorial vessels in a 65-year-old. Etiology of this finding is not apparent. Trace subdural blood and subarachnoid blood persist over both convexities. Earl Gaitan MD FACR Cervical Spine CT 02/15/16 0445 Signed Impressions: Service Date/Time: January 04:57 - CONCLUSION: 1. Slight neural foramina compromise bilateral C4-5 and C5-6 in addition to bilateral lateral recess compromise at these levels and no significant thecal sac stenosis. 2. There is also slight neural foramina compromise right C3-C4. 3. Nonspecific lucencies in the spine may be osteoporotic changes, however myeloma is difficult to exclude. Ariadne Feng MD Objective Remarks GENERAL: This is a well-nourished, well-developed patient, in no apparent distress. HEENT/Neck; s/p craniotomy/ trach in place CARDIOVASCULAR: Regular rate and regular rhythm without murmurs, gallops, or rubs. RESPIRATORY: Clear to auscultation. Breath sounds equal bilaterally. No wheezes , rales, or rhonchi. GASTROINTESTINAL: Abdomen soft, non-tender, nondistended. Normal, active bowel sounds-PEG in place MUSCULOSKELETAL: Extremities without clubbing, cyanosis, or edema. NEURO: awake Procedures craniotomy central line placement PEG placement tracheostomy Medications and IVs Current Medications IV Flush 2 ml 2 ml UNSCH PRN IVF FLUSH AFTER USING IV ACCESS; Start 02/15/16 at 00:45; Stop 02/15/16 at 04:08; Status DC Sodium Chloride (NS 1000 ml Inj) 1,000 ml @ 1,000 mls/hr Q1H IV Last administered on 02/15/16at 00:50; Start 02/15/16 at 00:43; Stop 02/15/16 at 01:42 ; Status DC Promethazine HCl (Phenergan Inj) 25 mg ONCE ONCE IM Last administered on at 00:50; Start 02/15/16 at 00:45; Stop 02/15/16 at 00:46; Status DC IV Flush (NS Flush) 2 ml UNSCH PRN IVF FLUSH AFTER USING IV ACCESS; Start 02/14 at 02:00; Stop 02/15/16 at 04:08; Status DC Rocuronium Gaston (Zemuron Inj) 50 mg BOLUS ONCE IV Last administered on 02/14at 03:06; Start 02/15/16 at 02:30; Stop 02/15/16 at 02:31; Status DC Etomidate (Amidate Inj) 20 mg ONCE ONCE IV PUSH Last administered on at 03:07; Start 02/15/16 at 02:30; Stop 02/15/16 at 02:31; Status DC Rocuronium Gaston 100 mg 100 mg STK-MED ONCE .ROUTE ; Start 02/15/16 at 02:22; Stop 02/15/16 at 02:23; Status DC Propofol (Diprivan 1000 Mg/100ml Inj) 100 ml @ As Directed STK-MED ONCE .ROUTE ; Start 02/15/16 at 02:25; Stop 02/15/16 at 02:26; Status DC Mannitol 25 gm 25 gm ONCE ONCE IV Last administered on 02/15/16at 03:09; Start 02/15/16 at 02:30; Stop 02/15/16 at 02:31; Status DC Propofol (Diprivan 1000 Mg/100ml Inj) 100 ml @ 0 mls/hr TITRATE IV Last administered on 02/15/16at 03:08; Start 02/15/16 at 02:45; Stop 02/15/16 at 11:04 ; Status DC Hydromorphone HCl 1 mg 1 mg ONCE ONCE IV PUSH Last administered on 02/15/16at 03:07; Start 02/15/16 at 03:00; Stop 02/15/16 at 03:01; Status DC Clevidipine (Cleviprex Inj) 50 ml @ 0 mls/hr TITRATE IV Last administered on at 04:15; Start 02/15/16 at 03:45; Stop 02/15/16 at 14:24; Status DC Hydralazine HCl (Apresoline Inj) 20 mg STK-MED ONCE .ROUTE ; Start 02/15/16 at 03:56; Stop 02/15/16 at 03:57; Status DC Hydralazine HCl 20 mg 20 mg ONCE ONCE IV PUSH Last administered on 02/15/16at 04:14; Start 02/15/16 at 04:00; Stop 02/15/16 at 04:09; Status DC Sodium Chloride (NS 1000 ml Inj) 1,000 ml @ 75 mls/hr [id number] IV Last administered on 02/15/16at 04:35; Start 02/15/16 at 03:58; Stop 02/17/16 at 07:41 ; Status DC IV Flush (NS Flush) 2 ml UNSCH PRN IVF FLUSH AFTER USING IV ACCESS; Start 02/14 at 04:00; Stop 02/21/16 at 15:14; Status DC IV Flush (NS Flush) 2 ml BID IVF Last administered on 02/21/16at 08:50; Start at 09:00; Stop 02/21/16 at 15:14; Status DC Pantoprazole Sodium (Protonix Inj) 40 mg DAILY IV Last administered on at 09:53; Start 02/15/16 at 09:00; Stop 02/28/16 at 07:46; Status DC Albuterol/ Ipratropium (Duoneb Neb) 1 ampule Q4HR NEB INH Last administered on 02/19/16at 03:03; Start 02/15/16 at 04:00; Stop 02/19/16 at 04:00; Status DC Albuterol/ Ipratropium (Duoneb Neb) 1 ampule Q2HR NEB PRN INH WHEEZING Last administered on 03/02/16at 10:54; Start 02/15/16 at 04:00 Miscellaneous Information 1 [id number] XX ; Start 02/15/16 at 04:00 Chlorhexidine Gluconate (Chlorhexidine 2% Cloth) Taper DAILY@04 TOP Last administered on 03/20/16at 04:41; Start 02/15/16 at 04:00; Stop 02/10/17 at 03:59 Chlorhexidine Gluconate (Chlorhexidine 2% Cloth) 3 pack UNSCH PRN TOP HYGIENIC CARE; Start 02/15/16 at 04:00 Chlorhexidine Gluconate 15 ml 15 ml BID@08,20 MT Last administered on 03/23/16at 08:00; Start 02/15/16 at 08:00 Propofol 100 ml @ 0 mls/hr TITRATE IV Last administered on 03/07/16at 09:51; Start 02/15/16 at 04:00; Stop 03/08/16 at 15:00; Status DC Fentanyl Citrate 250 ml @ 0 mls/hr TITRATE IV Last administered on 03/02/16at 06 :29; Start 02/15/16 at 04:00; Stop 03/02/16 at 09:35; Status DC Nicardipine HCl/ Sodium Chloride (Cardene Inj/NS 250 ml Inj) 260 ml @ 0 mls/hr TITRATE IV Last administered on 02/15/16at 12:15; Start 02/15/16 at 04:15; Stop 02/18/16 at 06:47; Status DC Metoprolol Tartrate (Lopressor Inj) 5 mg ONCE PRN IV PUSH SBP>160, DBP>90; Start 02/15/16 at 04:15; Stop 02/15/16 at 06:28; Status DC Mannitol 25 gm 25 gm Q6H IV Last administered on 02/18/16at 06:44; Start at 07:00; Stop 02/20/16 at 19:37; Status DC Midazolam HCl (Versed Inj) 100 ml @ 10 mls/hr CONTINUOUS IV Last administered on 03/04/16at 21:47; Start 02/15/16 at 10:45; Stop 03/07/16 at 07:46; Status DC Vecuronium Gaston (Norcuron 20 Mg Inj) 20 mg ONCE ONCE IV PUSH ; Start at 10:45; Stop 02/15/16 at 10:47; Status DC Vecuronium Gaston 10 mg 10 mg STK-MED ONCE .ROUTE ; Start 02/15/16 at 13:07; Stop 02/15/16 at 13:08; Status DC Sodium Chloride 1,000 ml @ 100 mls/hr Q10H IV Last administered on 02/16/16at 08:57; Start 02/15/16 at 13:39; Stop 02/17/16 at 07:41; Status DC Cefazolin Sodium/ Dextrose 50 ml @ 150 mls/hr ONCE ONCE IV ; Start 02/15/16 at 13:45; Stop 02/15/16 at 14:04; Status Cancel Vancomycin HCl/ Sodium Chloride (Vancomycin Inj/ NS 250 ml Inj) 250 ml @ 250 mls/hr ONCE ONCE IV ; Start 02/15/16 at 13:45; Stop 02/15/16 at 14:44; Status Cancel Chlorhexidine Gluconate 1 applic 1 applic HS TOP ; Start 02/15/16 at 21:00; Stop 02/16/16 at 21:01; Status DC Cefazolin Sodium/ Dextrose 50 ml @ 100 mls/hr BUSINESS SOLUTION ANALYST IV Last administered on 02/16/16at 07:50; Start 02/16/16 at 06:00; Stop 02/18/16 at 05:59; Status DC Vancomycin HCl/ Sodium Chloride (Vancomycin Inj/ NS 250 ml Inj) 250 ml @ 250 mls/hr BUSINESS SOLUTION ANALYST IV Last administered on 02/16/16at 08:42; Start 02/16/16 at 06: 00; Stop 02/18/16 at 05:59; Status DC Lidocaine/ Epinephrine (Xylocaine-Epi 1%-1:100,000 Inj) 30 ml STK-MED ONCE .ROUTE Last administered on 02/16/16at 09:08; Start 02/16/16 at 07:16; Stop at 07:17; Status DC Thrombin 52567 units 10,000 units STK-MED ONCE .ROUTE Last administered on 02/15at 10:32; Start 02/16/16 at 07:17; Stop 02/16/16 at 07:18; Status DC Levetriacetam (Keppra 500 Mg Premix Inj) 100 ml @ As Directed STK-MED ONCE IV ; Start 02/16/16 at 07:17; Stop 02/16/16 at 07:18; Status DC Gelatin (Gelfoam 100 Top) 1 foam STK-MED ONCE .ROUTE Last administered on at 10:29; Start 02/16/16 at 07:17; Stop 02/16/16 at 07:18; Status DC Furosemide (Lasix Inj) 40 mg STK-MED ONCE .ROUTE ; Start 02/16/16 at 07:17; Stop 02/16/16 at 07:18; Status DC Bacitracin (Baciguent Oint) 15 applic STK-MED ONCE .ROUTE Last administered on 02/16/16at 10:29; Start 02/16/16 at 07:18; Stop 02/16/16 at 07:19; Status DC Gentamicin Sulfate 240 mg 240 mg STK-MED ONCE .ROUTE Last administered on at 10:30; Start 02/16/16 at 07:18; Stop 02/16/16 at 07:19; Status DC Sodium Chloride (NS 250 ml Inj) 250 ml @ As Directed STK-MED ONCE .ROUTE ; Start 02/16/16 at 07:18; Stop 02/16/16 at 07:19; Status DC Vancomycin HCl (Vancomycin Inj) 2,000 mg STK-MED ONCE .ROUTE ; Start 02/16/16 at 07:40; Stop 02/16/16 at 07:41; Status DC Thrombin (Thrombin Top Soln) 10,000 units STK-MED ONCE .ROUTE Last administered on 02/16/16at 10:32; Start 02/16/16 at 09:49; Stop 02/16/16 at 09:50 ; Status DC Gelatin 1 foam 1 foam STK-MED ONCE .ROUTE ; Start 02/16/16 at 11:08; Stop at 11:09; Status DC Potassium Chloride/Sodium Chloride (NS + KCl 20 Meq Inj) 1,000 ml @ 100 mls/hr Q10H IV Last administered on 02/17/16at 20:23; Start 02/16/16 at 11:45; Stop at 06:47; Status DC IV Flush (NS Flush) 2 ml UNSCH PRN IVF FLUSH AFTER USING IV ACCESS Last administered on 03/04/16at 17:14; Start 02/16/16 at 11:45 IV Flush 2 ml 2 ml BID IVF Last administered on 03/23/16at 08:22; Start 02/16/16 at 21:00 Cefazolin Sodium/ Dextrose 50 ml @ 100 mls/hr Q8H IV Last administered on 02/16at 07:31; Start 02/16/16 at 16:00; Stop 02/17/16 at 08:29; Status DC Levetriacetam (Keppra 500 Mg Premix Inj) 100 ml @ 400 mls/hr Q12H IV Last administered on 02/27/16at 22:20; Start 02/16/16 at 11:45; Stop 02/28/16 at 07:46; Status DC Bisacodyl (Dulcolax Supp) 10 mg DAILY PRN [place] CONSTIPATION Last administered on 02/21/16at 06:05; Start 02/16/16 at 11:45 Docusate Sodium (Colace) 100 mg BID PO Last administered on 02/19/16at 21:02; Start 02/16/16 at 21:00; Stop 02/20/16 at 06:51; Status DC Pantoprazole Sodium (Protonix) 40 mg DAILY PO ; Start 02/17/16 at 09:00; Stop at 06:48; Status DC Pantoprazole Sodium (Protonix Inj) 40 mg DAILY IVP ; Start 02/17/16 at 09:00; Stop 02/18/16 at 06:48; Status DC Ondansetron HCl (Zofran Inj) 4 mg Q6H PRN IV NAUSEA OR VOMITING; Start at 11:45 Calcium Gluconate 1 gm 1 gm UNSCH PRN IV SEE LABEL COMMENTS; Start 02/16/16 at 11:45; Stop 02/27/16 at 15:15; Status DC Potassium Chloride 100 ml @ 50 mls/hr UNSCH PRN IV POTASSIUM LESS THAN 4 Last administered on 02/18/16at 17:59; Start 02/16/16 at 11:45 Magnesium Sulfate/ Sodium Chloride (Magnesium Sulfate Inj/NS Inj) 108 ml @ 108 mls/hr UNSCH PRN IV MAGNESIUM LESS THAN 2; Start 02/16/16 at 11:45; Stop at 07:46; Status DC Acetaminophen/ Hydrocodone Bitart ([place] 10-325 Mg) 1 tab Q4H PRN PO PAIN SCALE 1 TO 5; Start 02/16/16 at 11:45; Stop 02/27/16 at 15:15; Status DC Acetaminophen/ Hydrocodone Bitart ([place] 10-325 Mg) 2 tab Q4H PRN PO PAIN SCALE 6 TO 10 Last administered on 02/26/16at 16:56; Start 02/16/16 at 11:45; Stop 02/27/16 at 15:15; Status DC Morphine Sulfate (Morphine Inj) 2 mg Q2H PRN IV PUSH PAIN SCALE 1 TO 6 Last administered on 02/20/16at 01:03; Start 02/16/16 at 11:45; Stop 02/27/16 at 15:15 ; Status DC Morphine Sulfate (Morphine Inj) 4 mg Q2H PRN IV PUSH PAIN SCALE 7 TO 10 Last administered on 02/27/16at 02:45; Start 02/16/16 at 11:45; Stop 02/27/16 at 15:15; Status DC Acetaminophen (Tylenol) 650 mg Q4H PRN PO TEMPERATURE > 101.5 F Last administered on 03/06/16at 11:19; Start 02/16/16 at 11:45; Stop 03/19/16 at 09:23 ; Status DC Miscellaneous Information ALL NURSING DEPARTME... UNSCH PRN XX SEE LABEL COMMENTS; Start 02/16/16 at 12:45; Stop 02/17/16 at 12:44; Status DC Fentanyl Citrate (Sublimaze Inj) 500 mcg STK-MED ONCE .ROUTE ; Start 02/16/16 at 13:01; Stop 02/16/16 at 13:02; Status DC Norepinephrine Bitartrate 4 mg 4 mg STK-MED ONCE .ROUTE Last administered on at 07:27; Start 02/17/16 at 07:27; Stop 02/17/16 at 07:28; Status DC Sodium Chloride 1,000 ml @ 1,000 mls/hr Q1H ONCE IV Last administered on at 08:15; Start 02/17/16 at 08:15; Stop 02/17/16 at 09:14; Status DC Norepinephrine Bitartrate (Levophed-Dextrose Drip) 250 ml @ 0 mls/hr TITRATE IV ; Start 02/17/16 at 07:45; Stop 02/17/16 at 16:32; Status DC Terbutaline Sulfate (Brethine Inj) 1 mg UNSCH PRN SQ For Extravasation; Start 02/17/16 at 07:45; Stop 02/21/16 at 15:14; Status DC Chlordiazepoxide (Librium) 50 mg Q8H PO Last administered on 02/20/16at 01:03; Start 02/17/16 at 08:00; Stop 02/20/16 at 07:59; Status DC Iohexol (Omnipaque 350 Inj) 71 ml STK-MED ONCE IV Last administered on at 04:31; Start 02/16/16 at 04:31; Stop 02/17/16 at 08:10; Status DC Norepinephrine Bitartrate 4 mg 4 mg STK-MED ONCE .ROUTE ; Start 02/17/16 at 14: 33; Stop 02/17/16 at 14:34; Status DC Norepinephrine Bitartrate 4 mg/ Sodium Chloride 254 ml @ 0 mls/hr TITRATE IV Last administered on 02/20/16at 16:36; Start 02/17/16 at 17:00; Stop 02/21/16 at 15:14; Status DC Sodium Chloride (Sodium Chloride 3% Inj) 500 ml @ 30 mls/hr CONTINUOUS IV Last administered on 02/19/16at 02:14; Start 02/18/16 at 06:15; Stop 02/19/16 at 07:26; Status DC Metoclopramide HCl (Reglan Inj) 10 mg Q8HR IV PUSH Last administered on at 04:31; Start 02/18/16 at 06:45; Stop 02/28/16 at 07:46; Status DC Lactulose (Lactulose Liq) 30 ml DAILY PO Last administered on 02/26/16at 10:46; Start 02/18/16 at 09:00; Stop 02/27/16 at 09:03; Status DC Furosemide 40 mg 40 mg ONCE ONCE IV PUSH Last administered on 02/18/16at 07:25 ; Start 02/18/16 at 06:45; Stop 02/18/16 at 06:49; Status DC Magnesium Sulfate/ Dextrose (Magnesium Sulfate 1 Gm Premix) 100 ml @ 100 mls/ hr Q1H IV Last administered on 02/18/16at 08:00; Start 02/18/16 at 07:00; Stop 02/18/16 at 08:59; Status DC Metoclopramide HCl 10 mg 10 mg Q8HR IM ; Start 02/18/16 at 09:00; Stop 02/18/16 at 10:36; Status DC Sodium Chloride 240 meq/Syringe / Bag 60 ml @ 0 mls/hr ONCE ONCE IV Last administered on 02/18/16at 10:38; Start 02/18/16 at 12:00; Stop 02/18/16 at 12:01 ; Status DC Potassium Chloride 100 ml @ 25 mls/hr Q4H IV ; Start 02/18/16 at 19:45; Stop at 19:45; Status DC Potassium Chloride 30 meq/ Sodium Chloride 115 ml @ 38.333 mls/ hr Q3H IV Last administered on 02/18/16at 23:15; Start 02/18/16 at 21:00; Stop 02/19/16 at 02:59; Status DC Potassium Phosphate/Sodium Chloride (Potassium Phosphate Inj/NS Inj) 155 ml @ 38.75 mls/ hr ONCE ONCE IV Last administered on 02/18/16at 20:07; Start at 21:00; Stop 02/19/16 at 00:59; Status DC Calcium Chloride 1 gm 1 gm ONCE ONCE IV PUSH Last administered on 02/18/16at 20 :06; Start 02/18/16 at 20:00; Stop 02/18/16 at 20:01; Status DC Potassium Chloride (KCl 40 Meq Premix Inj) 100 ml @ 25 mls/hr BOLUS ONCE IV Last administered on 02/19/16at 05:43; Start 02/19/16 at 05:30; Stop 02/19/16 at 09:29; Status DC Potassium Chloride 40 meq 40 meq ONCE ONCE PO Last administered on 02/19/16at 05:42; Start 02/19/16 at 05:30; Stop 02/19/16 at 05:31; Status DC Potassium Chloride 100 ml @ 50 mls/hr Q2H PRN IV For Potassium 2.8 - 3.2 mEq/ L Last administered on 02/26/16at 10:47; Start 02/19/16 at 07:30 Potassium Chloride (KCl 20 Meq Premix Inj) 100 ml @ 50 mls/hr Q2H PRN IV For Potassium 2.8 - 3.2 mEq/L; Start 02/19/16 at 07:30 Potassium Chloride 40 meq 40 meq UNSCH PRN PO/TUBE For Potassium 3.3 - 3.5 mEq/ L Last administered on 03/03/16at 09:31; Start 02/19/16 at 07:30 Potassium Chloride 100 ml @ 25 mls/hr UNSCH PRN IV For Potassium 3.3 - 3.5 mEq /L Last administered on 02/29/16at 06:47; Start 02/19/16 at 07:30 Potassium Chloride 100 ml @ 50 mls/hr Q2H PRN IV For Potassium 3.3 - 3.5 mEq/L ; Start 02/19/16 at 07:30 Magnesium Sulfate/ Sodium Chloride (Magnesium Sulfate Inj/NS Inj) 100 ml @ 50 mls/hr UNSCH PRN IV For Magnesium 0.9 - 1.1 mg/dL; Start 02/19/16 at 07:30 Magnesium Oxide 800 mg 800 mg UNSCH PRN PO For Magnesium 1.2 - 1.6 mg/dL; Start 02/19/16 at 07:30 Magnesium Sulfate/ Sodium Chloride (Magnesium Sulfate Inj/NS Inj) 100 ml @ 50 mls/hr UNSCH PRN IV For Magnesium 1.2 - 1.6 mg/dL; Start 02/19/16 at 07:30 Potassium Phosphate 2000 mg 2,000 mg Q4H PRN PO For Phosphorus < 2.5 mg/dL; Start 02/19/16 at 07:30 Sodium Phosphate/ Sodium Chloride (Sodium Phosphate Inj/NS 250 ml Inj) 250 ml @ 42 mls/hr UNSCH PRN IV For Phosphorus < 2.5 mg/dL; Start 02/19/16 at 07:30 Potassium Chloride (KCl 40 Meq/30 ml Liq) 40 meq UNSCH PRN PO/TUBE SEE LABEL COMMENTS; Start 02/19/16 at 07:30 Potassium Phosphate 2000 mg 2,000 mg UNSCH PRN PO/TUBE SEE LABEL COMMENTS; Start 02/19/16 at 07:30 Potassium Phosphate 30 mmol/ Sodium Chloride 260 ml @ 42 mls/hr UNSCH PRN IV SEE LABEL COMMENTS; Start 02/19/16 at 07:30 Sodium Chloride (NS 250 ml Inj) 250 ml @ As Directed STK-MED ONCE .ROUTE ; Start 02/19/16 at 21:51; Stop 02/19/16 at 21:52; Status DC Norepinephrine Bitartrate (Levophed Inj) 4 mg STK-MED ONCE .ROUTE ; Start at 21:51; Stop 02/19/16 at 21:52; Status DC Docusate Sodium (Colace Liq) 100 mg BID NG Last administered on 03/18/16at 08:07 ; Start 02/20/16 at 09:00; Stop 03/18/16 at 15:25; Status DC Polyethylene Glycol 17 gm 17 gm DAILY PO Last administered on 02/26/16at 10:47; Start 02/20/16 at 09:00; Stop 02/27/16 at 09:03; Status DC Pharmacy Profile Note 0 ml @ 0 mls/hr UNSCH XX ; Start 02/20/16 at 08:15; Stop 02/25/16 at 09:02; Status DC Piperacillin Sod/ Tazobactam Sod (Zosyn 3.375 Gm Premix) 50 ml @ 100 mls/hr Q8H IV Last administered on 02/25/16at 08:28; Start 02/20/16 at 09:00; Stop at 09:02; Status DC Propofol (Diprivan 200 Mg/20 ml Inj) 400 mg STK-MED ONCE IV ; Start 02/16/16 at 12:00; Stop 02/20/16 at 08:25; Status DC Phenylephrine HCl 2000 mcg 2,000 mcg STK-MED ONCE IV ; Start 02/16/16 at 12:00; Stop 02/20/16 at 08:25; Status DC Lactated Ringer's 2,000 ml @ As Directed STK-MED ONCE IV ; Start 02/16/16 at 12 :00; Stop 02/20/16 at 08:25; Status DC Parenteral Electrolytes 1,000 ml @ As Directed STK-MED ONCE IV ; Start at 12:00; Stop 02/20/16 at 08:25; Status DC Vancomycin HCl/ Sodium Chloride (Vancomycin Inj/ NS 500 ml Inj) 500 ml @ 250 mls/hr Q12H IV Last administered on 02/22/16at 11:52; Start 02/20/16 at 11:00; Stop 02/22/16 at 13:01; Status DC Miscellaneous Information SPECIFIC LAB TO BE DRAWN:VANCOMYCIN TROUGH DATE TO... ONCE ONCE XX Last administered on 02/22/16at 11:15; Start 02/22/16 at 10:45; Stop 02/22/16 at 10:46; Status DC Midazolam HCl (Versed Inj) 10 mg ONCE ONCE IV PUSH Last administered on at 15:15; Start 02/21/16 at 15:15; Stop 02/21/16 at 15:16; Status DC Vecuronium [place]aston (Norcuron 10 Mg Inj) 10 mg ONCE ONCE IV PUSH Last administered on 02/21/16at 15:15; Start 02/21/16 at 15:15; Stop 02/21/16 at 15:16; Status DC Fentanyl Citrate 250 mcg 250 mcg ONCE ONCE IV PUSH Last administered on at 15:15; Start 02/21/16 at 15:15; Stop 02/21/16 at 15:16; Status DC Norepinephrine Bitartrate (Levophed-Dextrose Drip) 250 ml @ 0 mls/hr TITRATE IV Last administered on 02/26/16at 21:49; Start 02/21/16 at 15:15; Stop 03/02/16 at 16:33; Status DC Terbutaline Sulfate (Brethine Inj) 1 mg UNSCH PRN SQ For Extravasation; Start 02/21/16 at 15:15; Stop 03/07/16 at 07:46; Status DC Albumin Human 12.5 gm 12.5 gm NOW ONCE IV Last administered on 02/21/16at 21:34 ; Start 02/21/16 at 21:15; Stop 02/21/16 at 21:16; Status DC Magnesium Sulfate/ Dextrose (Magnesium Sulfate 1 Gm Premix) 100 ml @ 100 mls/ hr Q1H IV Last administered on 02/21/16at 22:21; Start 02/21/16 at 21:15; Stop 02/21/16 at 23:14; Status DC Proparacaine HCl (Alcaine 0.5% Opht Soln) 1 drop ONCE ONCE LEFT EYE ; Start 02/22/16 at 06:30; Stop 02/22/16 at 06:31; Status Cancel Tropicamide (Mydriacyl 1% Opth Soln) 1 drop Q5M LEFT EYE ; Start 02/22/16 at 06: 30; Stop 02/22/16 at 06:46; Status Cancel Phenylephrine HCl (Neofrin 10% Opth Soln) 1 drop Q5M LEFT EYE ; Start 02/22/16 at 06:30; Stop 02/22/16 at 06:46; Status Cancel Cyclopentolate HCl (Cyclogyl 1% Opth Soln) 1 drop Q5M LEFT EYE ; Start 02/22/16 at 06:30; Stop 02/22/16 at 06:46; Status Cancel Flurbiprofen Sodium (Ocufen 0.03% Opht Soln) 1 drop Q5M LEFT EYE ; Start at 06:30; Stop 02/22/16 at 06:46; Status Cancel Lidocaine HCl 5 ml 5 ml ONCE ONCE TOPICAL ; Start 02/22/16 at 06:30; Stop at 06:31; Status Cancel Vancomycin HCl/ Sodium Chloride (Vancomycin Inj/ NS 500 ml Inj) 500 ml @ 250 mls/hr Q12H IV Last administered on 02/25/16at 00:58; Start 02/23/16 at 00:00; Stop 02/25/16 at 09:02; Status DC Miscellaneous Information SPECIFIC LAB TO BE JOSE F... ONCE ONCE XX ; Start at 23:45; Stop 02/23/16 at 23:46; Status DC Labetalol HCl (Trandate Inj) 20 mg Q2H PRN IV PUSH SBP > 160 Last administered on 03/21/16at 01:04; Start 02/22/16 at 15:00 Metoprolol Tartrate (Lopressor) 25 mg Q12HR PO Last administered on 02/23/16at 08 :31; Start 02/23/16 at 09:00; Stop 02/23/16 at 09:00; Status DC Lisinopril (Prinivil) 5 mg DAILY PO Last administered on 02/25/16at 08:28; Start 02/23/16 at 09:00; Stop 02/25/16 at 09:02; Status DC Hydralazine HCl (Apresoline Inj) 10 mg Q4H PRN IV PUSH SBP > 170 Last administered on 03/23/16at 02:09; Start 02/22/16 at 15:00 Alteplase, Recombinant (Cathflo Activase Inj) 2 mg ONCE IV FLUSH Last administered on 02/22/16at 23:36; Start 02/22/16 at 22:30; Stop 02/22/16 at 23:30; Status DC Alteplase, Recombinant (Cathflo Activase Inj) 2 mg ONCE IV FLUSH Last administered on 02/23/16at 01:49; Start 02/22/16 at 22:30; Stop 02/22/16 at 23:30; Status DC Alteplase, Recombinant (Cathflo Activase Inj) 2 mg ONCE IV FLUSH Last administered on 02/23/16at 02:51; Start 02/22/16 at 22:30; Stop 02/22/16 at 23:30; Status DC Metoprolol Tartrate (Lopressor) 75 mg Q12HR PO Last administered on 02/25/16at 20 :12; Start 02/23/16 at 21:00; Stop 02/26/16 at 09:26; Status DC Clonidine (Catapres) 0.2 mg Q8HR PO Last administered on 02/25/16at 20:12; Start 02/23/16 at 09:00; Stop 02/26/16 at 09:26; Status DC Metoprolol Tartrate (Lopressor) 50 mg NOW ONCE PO Last administered on at 09:10; Start 02/23/16 at 09:15; Stop 02/23/16 at 09:16; Status DC Miscellaneous Information SPECIFIC LAB TO BE [facility] F... ONCE ONCE XX ; Start at 11:45; Stop 02/25/16 at 11:46; Status DC Lisinopril 10 mg 10 mg DAILY PO Last administered on 02/25/16at 10:13; Start 02/24 at 09:00; Stop 02/26/16 at 09:26; Status DC Ceftriaxone Sodium/Sodium Chloride (Rocephin Inj/NS Inj) 100 ml @ 200 mls/hr Q24H IV Last administered on 03/09/16at 08:41; Start 02/25/16 at 09:00; Stop at 15:55; Status DC Amlodipine Besylate (Norvasc) 5 mg DAILY PO Last administered on 02/25/16at 10:13 ; Start 02/25/16 at 09:00; Stop 02/26/16 at 09:26; Status DC Furosemide (Lasix) 20 mg DAILY PO Last administered on 02/26/16 10:46; Start at 09:15; Stop 02/27/16 at 07:40; Status DC Albumin Human 12.5 gm 12.5 gm NOW ONCE IV Last administered on 02/26/16at 00:41 ; Start 02/26/16 at 00:45; Stop 02/26/16 at 00:46; Status DC Sodium Chloride 500 ml @ 35 mls/hr Q14H IV Last administered on 03/01/16 03: 42; Start 02/26/16 at 04:30; Stop 03/01/16 at 08:05; Status DC Sodium Chloride 240 meq/Syringe /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
[2016-03-23] MEDS: CHLORHEXIDINE GLUCONATE 2 % 1 PACK (2 CLOTHS) TOP SCH (22:26)
[2016-03-24] VITALS (15 sets, daily range): BP systolic 125–162; BP diastolic 66–89; PULSE 61–88; RESP 12–26; TEMP 98.4–98.9; O2SAT 96–100
[2016-03-24 03:54] LABS: AUTOMATED NEUTROPHIL # 8.4 TH/MM3 (1.8-7.7); BASOPHIL # 0.1 TH/MM3 (0-0.2); BASOPHIL % 0.5 % (0.0-2.0); EOSINOPHIL # 0.2 TH/MM3 (0-0.4); EOSINOPHIL % 1.4 % (0.0-4.0); HEMATOCRIT 36.7 % (39.0-51.0); HEMO FLAGS DIFF FINAL; LYMPH % 13.8 % (9.0-44.0); LYMPHOCYTE # 1.6 TH/MM3 (1.0-4.8); MEAN CELL VOLUME 91.6 FL (80.0-100.0); MEAN CORPUSCULAR HEMOGLOBIN 29.7 PG (27.0-34.0); MEAN CORPUSCULAR HGB CONC 32.4 % (32.0-36.0); MONO % 11.7 % (0.0-8.0); NEUT % 72.6 % (16.0-70.0); PLATELET COUNT 455 TH/MM3 (150-450); RED CELL DISTRIBUTION WIDTH 14.6 % (11.6-17.2); WHITE BLOOD COUNT 11.6 TH/MM3 (4.0-11.0)
[2016-03-24 04:21] LABS: ALT (GPT) 85 U/L (12-78); ANION GAP 5 MEQ/L (5-15); AST (GOT) 29 U/L (15-37); BICARBONATE 32.5 MEQ/L (21.0-32.0); BLOOD UREA NITROGEN 25 MG/DL (7-18); CHLORIDE 105 MEQ/L (98-107); GLOMERULAR FILTRATION RATE 144 ML/MIN (>89); POTASSIUM 3.8 MEQ/L (3.5-5.1); SODIUM (NA) 142 MEQ/L (136-145)
[2016-03-24 04:23] LABS: ALKALINE PHOSPHATASE 158 U/L (45-117); TOTAL BILIRUBIN ADULT 0.4 MG/DL (0.2-1.0)
[2016-03-24] MEDS: FREE WATER G-TUBE SCH ×3 (06:12→21:33)
[2016-03-24] MEDS: METOPROLOL TARTRATE 50 MG TAB PEG SCH ×3 (06:12→21:33)
[2016-03-24] MEDS: hydrALAZINE HCL 25 MG TAB PO SCH ×3 (06:12→21:33)
[2016-03-24] MEDS: levETIRAcetam 500 MG/5 ML UDC TUBE SCH ×2 (07:47→20:30)
[2016-03-24] MEDS: METHADONE HCL 10 MG/10 ML ORAL SOLUTION PO SCH ×2 (07:47→20:30)
[2016-03-24] MEDS: LANSOPRAZOLE SOLUTAB 30 MG TAB NG SCH (07:48)
[2016-03-24] MEDS: ENOXAPARIN SODIUM 30 MG/0.3 ML SYRINGE SQ SCH ×2 (07:48→20:30)
[2016-03-24] MEDS: CHLORHEXIDINE 0.12% (ORAL KIT) 15 ML CUP MT SCH ×2 (07:48→20:27)
[2016-03-24] MEDS: SODIUM CHLORIDE 0.9% FLUSH 5 ML FLUSH IVF SCH ×2 (07:49→20:31)
--- NOTE | 2016-03-24 11:17 | HHI.PR ---
Subjective Remarks in no acute distress. afebrile. d/w RN ; reportedly had lots of secretions over night but with no acute issues over night. Objective Vitals Vital Signs Date Time Temp Pulse Resp B/P Pulse Ox O2 Delivery O2 Flow Rate FiO2 03/24/16 10:00 61 03/24/16 08:00 70 03/24/16 08:00 98.8 72 26 150/89 98 03/24/16 07:39 99 T-piece 5.00 21 03/24/16 07:00 100 T-Piece 6.00 28 03/24/16 06:00 87 03/24/16 04:00 98.5 73 23 125/66 99 03/24/16 04:00 73 03/24/16 04:00 100 T-Piece 5.00 21 03/24/16 03:50 100 T-piece 5.00 21 03/24/16 02:00 70 03/24/16 00:00 98.5 68 24 126/75 98 03/24/16 00:00 68 03/23/16 22:00 91 03/23/16 20:06 99 5.00 28 03/23/16 20:00 81 03/23/16 20:00 98.5 79 17 155/83 100 03/23/16 19:00 100 T-Piece 5.00 28 03/23/16 18:00 76 03/23/16 16:00 97.9 69 18 97/52 100 03/23/16 16:00 69 03/23/16 14:00 83 03/23/16 12:00 98.6 75 20 154/81 100 03/23/16 12:00 75 I/O 03/23/16 03/23/16 03/23/16 03/24/16 03/24/16 03/24/16 07:00 15:00 23:00 07:00 15:00 23:00 Intake Total 700 ml 681 ml 700 ml 525 ml Output Total 450 ml 700 ml 450 ml 450 ml Balance 250 ml -19 ml 250 ml 75 ml Tube Feeding 460 ml 481 ml 450 ml 325 ml Other 240 ml 200 ml 250 ml 200 ml Output Urine Total 450 ml 700 ml 450 ml 450 ml # Bowel Movements 0 0 0 0 Result Diagram: 03/24/16 0330 03/24/16 0330 Imaging Last Impressions Liver Ultrasound 03/18/16 0000 Signed Impressions: Service Date/Time: Friday, March 18, 2016 17:01 - CONCLUSION: Ultrasound appearance of the liver and other right upper quadrant structures is within normal limits. Duy Skelton MD Chest X-Ray 03/17/16 0600 Signed Impressions: Service Date/Time: Thursday, March 17, 2016 05:23 - CONCLUSION: Increasing linear density in the left perihilar region. Improving densities in the left upper lobe and right lung Norman Pineda MD Head CT 03/09/16 0600 Signed Impressions: Service Date/Time: Wednesday, March 09, 2016 04:21 - CONCLUSION: 1. Mild improvement of the cerebral edema in the left cerebral hemisphere. 2. Otherwise , no other new or significant changes. Alli Jj MD Head CTA 02/16/16 0000 Signed Impressions: Service Date/Time: Tuesday, February 16, 2016 04:31 - CONCLUSION: I do not see an etiology for the patient's cerebellar hemorrhage on the right. Small supratentorial vessels in a 65-year-old. Etiology of this finding is not apparent. Trace subdural blood and subarachnoid blood persist over both convexities. Earl Gaitan MD FACR Cervical Spine CT 02/15/16 0445 Signed Impressions: Service Date/Time: January 04:57 - CONCLUSION: 1. Slight neural foramina compromise bilateral C4-5 and C5-6 in addition to bilateral lateral recess compromise at these levels and no significant thecal sac stenosis. 2. There is also slight neural foramina compromise right C3-C4. 3. Nonspecific lucencies in the spine may be osteoporotic changes, however myeloma is difficult to exclude. Ariadne Feng MD Objective Remarks GENERAL: This is a well-nourished, well-developed patient, in no apparent distress. HEENT/Neck; s/p craniotomy/ trach in place CARDIOVASCULAR: Regular rate and regular rhythm without murmurs, gallops, or rubs. RESPIRATORY: Clear to auscultation. Breath sounds equal bilaterally. No wheezes , rales, or rhonchi. GASTROINTESTINAL: Abdomen soft, non-tender, nondistended. Normal, active bowel sounds-PEG in place MUSCULOSKELETAL: Extremities without clubbing, cyanosis, or edema. NEURO: awake Procedures craniotomy central line placement PEG placement tracheostomy Medications and IVs Current Medications IV Flush 2 ml 2 ml UNSCH PRN IVF FLUSH AFTER USING IV ACCESS; Start 02/15/16 at 00:45; Stop 02/15/16 at 04:08; Status DC Sodium Chloride (NS 1000 ml Inj) 1,000 ml @ 1,000 mls/hr Q1H IV Last administered on 02/15/16at 00:50; Start 02/15/16 at 00:43; Stop 02/15/16 at 01:42 ; Status DC Promethazine HCl (Phenergan Inj) 25 mg ONCE ONCE IM Last administered on at 00:50; Start 02/15/16 at 00:45; Stop 02/15/16 at 00:46; Status DC IV Flush (NS Flush) 2 ml UNSCH PRN IVF FLUSH AFTER USING IV ACCESS; Start 02/14 at 02:00; Stop 02/15/16 at 04:08; Status DC Rocuronium [place] (Zemuron Inj) 50 mg BOLUS ONCE IV Last administered on 02/14at 03:06; Start 02/15/16 at 02:30; Stop 02/15/16 at 02:31; Status DC Etomidate (Amidate Inj) 20 mg ONCE ONCE IV PUSH Last administered on at 03:07; Start 02/15/16 at 02:30; Stop 02/15/16 at 02:31; Status DC Rocuronium [place] 100 mg 100 mg STK-MED ONCE .ROUTE ; Start 02/15/16 at 02:22; Stop 02/15/16 at 02:23; Status DC Propofol (Diprivan 1000 Mg/100ml Inj) 100 ml @ As Directed STK-MED ONCE .ROUTE ; Start 02/15/16 at 02:25; Stop 02/15/16 at 02:26; Status DC Mannitol 25 gm 25 gm ONCE ONCE IV Last administered on 02/15/16at 03:09; Start 02/15/16 at 02:30; Stop 02/15/16 at 02:31; Status DC Propofol (Diprivan 1000 Mg/100ml Inj) 100 ml @ 0 mls/hr TITRATE IV Last administered on 02/15/16at 03:08; Start 02/15/16 at 02:45; Stop 02/15/16 at 11:04 ; Status DC Hydromorphone HCl 1 mg 1 mg ONCE ONCE IV PUSH Last administered on 02/15/16at 03:07; Start 02/15/16 at 03:00; Stop 02/15/16 at 03:01; Status DC Clevidipine (Cleviprex Inj) 50 ml @ 0 mls/hr TITRATE IV Last administered on at 04:15; Start 02/15/16 at 03:45; Stop 02/15/16 at 14:24; Status DC Hydralazine HCl (Apresoline Inj) 20 mg STK-MED ONCE .ROUTE ; Start 02/15/16 at 03:56; Stop 02/15/16 at 03:57; Status DC Hydralazine HCl 20 mg 20 mg ONCE ONCE IV PUSH Last administered on 02/15/16at 04:14; Start 02/15/16 at 04:00; Stop 02/15/16 at 04:09; Status DC Sodium Chloride (NS 1000 ml Inj) 1,000 ml @ 75 mls/hr [id number] IV Last administered on 02/15/16at 04:35; Start 02/15/16 at 03:58; Stop 02/17/16 at 07:41 ; Status DC IV Flush (NS Flush) 2 ml UNSCH PRN IVF FLUSH AFTER USING IV ACCESS; Start 02/14 at 04:00; Stop 02/21/16 at 15:14; Status DC IV Flush (NS Flush) 2 ml BID IVF Last administered on 02/21/16at 08:50; Start at 09:00; Stop 02/21/16 at 15:14; Status DC Pantoprazole Sodium (Protonix Inj) 40 mg DAILY IV Last administered on at 09:53; Start 02/15/16 at 09:00; Stop 02/28/16 at 07:46; Status DC Albuterol/ Ipratropium (Duoneb Neb) 1 ampule Q4HR NEB INH Last administered on 02/19/16at 03:03; Start 02/15/16 at 04:00; Stop 02/19/16 at 04:00; Status DC Albuterol/ Ipratropium (Duoneb Neb) 1 ampule Q2HR NEB PRN INH WHEEZING Last administered on 03/02/16at 10:54; Start 02/15/16 at 04:00 Miscellaneous Information 1 [id number] XX ; Start 02/15/16 at 04:00 Chlorhexidine Gluconate (Chlorhexidine 2% Cloth) 3 pack Taper DAILY@04 TOP Last administered on 03/20/16at 04:41; Start 02/15/16 at 04:00; Stop 02/10/17 at 03:59 Chlorhexidine Gluconate (Chlorhexidine 2% Cloth) 3 pack UNSCH PRN TOP HYGIENIC CARE; Start 02/15/16 at 04:00 Chlorhexidine Gluconate 15 ml 15 ml BID@08,20 MT Last administered on 03/24/16at 07:48; Start 02/15/16 at 08:00 Propofol 100 ml @ 0 mls/hr TITRATE IV Last administered on 03/07/16at 09:51; Start 02/15/16 at 04:00; Stop 03/08/16 at 15:00; Status DC Fentanyl Citrate 250 ml @ 0 mls/hr TITRATE IV Last administered on 03/02/16at 06 :29; Start 02/15/16 at 04:00; Stop 03/02/16 at 09:35; Status DC Nicardipine HCl/ Sodium Chloride (Cardene Inj/NS 250 ml Inj) 260 ml @ 0 mls/hr TITRATE IV Last administered on 02/15/16at 12:15; Start 02/15/16 at 04:15; Stop 02/18/16 at 06:47; Status DC Metoprolol Tartrate (Lopressor Inj) 5 mg ONCE PRN IV PUSH SBP>160, DBP>90; Start 02/15/16 at 04:15; Stop 02/15/16 at 06:28; Status DC Mannitol 25 gm 25 gm Q6H IV Last administered on 02/18/16at 06:44; Start at 07:00; Stop 02/20/16 at 19:37; Status DC Midazolam HCl (Versed Inj) 100 ml @ 10 mls/hr CONTINUOUS IV Last administered on 03/04/16at 21:47; Start 02/15/16 at 10:45; Stop 03/07/16 at 07:46; Status DC Vecuronium [place] (Norcuron 20 Mg Inj) 20 mg ONCE ONCE IV PUSH ; Start at 10:45; Stop 02/15/16 at 10:47; Status DC Vecuronium [place] 10 mg 10 mg STK-MED ONCE .ROUTE ; Start 02/15/16 at 13:07; Stop 02/15/16 at 13:08; Status DC Sodium Chloride 1,000 ml @ 100 mls/hr Q10H IV Last administered on 02/16/16at 08:57; Start 02/15/16 at 13:39; Stop 02/17/16 at 07:41; Status DC Cefazolin Sodium/ Dextrose 50 ml @ 150 mls/hr ONCE ONCE IV ; Start 02/15/16 at 13:45; Stop 02/15/16 at 14:04; Status Cancel Vancomycin HCl/ Sodium Chloride (Vancomycin Inj/ NS 250 ml Inj) 250 ml @ 250 mls/hr ONCE ONCE IV ; Start 02/15/16 at 13:45; Stop 02/15/16 at 14:44; Status Cancel Chlorhexidine Gluconate 1 applic 1 applic HS TOP ; Start 02/15/16 at 21:00; Stop 02/16/16 at 21:01; Status DC Cefazolin Sodium/ Dextrose 50 ml @ 100 mls/hr [employer] IV Last administered on 02/16/16at 07:50; Start 02/16/16 at 06:00; Stop 02/18/16 at 05:59; Status DC Vancomycin HCl/ Sodium Chloride (Vancomycin Inj/ NS 250 ml Inj) 250 ml @ 250 mls/hr [employer] IV Last administered on 02/16/16at 08:42; Start 02/16/16 at 06: 00; Stop 02/18/16 at 05:59; Status DC Lidocaine/ Epinephrine (Xylocaine-Epi 1%-1:100,000 Inj) 30 ml STK-MED ONCE .ROUTE Last administered on 02/16/16at 09:08; Start 02/16/16 at 07:16; Stop at 07:17; Status DC Thrombin 92172 units 10,000 units STK-MED ONCE .ROUTE Last administered on 02/15at 10:32; Start 02/16/16 at 07:17; Stop 02/16/16 at 07:18; Status DC Levetriacetam (Keppra 500 Mg Premix Inj) 100 ml @ As Directed STK-MED ONCE IV ; Start 02/16/16 at 07:17; Stop 02/16/16 at 07:18; Status DC Gelatin (Gelfoam 100 Top) 1 foam STK-MED ONCE .ROUTE Last administered on at 10:29; Start 02/16/16 at 07:17; Stop 02/16/16 at 07:18; Status DC Furosemide (Lasix Inj) 40 mg STK-MED ONCE .ROUTE ; Start 02/16/16 at 07:17; Stop 02/16/16 at 07:18; Status DC Bacitracin (Baciguent Oint) 15 applic STK-MED ONCE .ROUTE Last administered on 02/16/16at 10:29; Start 02/16/16 at 07:18; Stop 02/16/16 at 07:19; Status DC Gentamicin Sulfate 240 mg 240 mg STK-MED ONCE .ROUTE Last administered on at 10:30; Start 02/16/16 at 07:18; Stop 02/16/16 at 07:19; Status DC Sodium Chloride (NS 250 ml Inj) 250 ml @ As Directed STK-MED ONCE .ROUTE ; Start 02/16/16 at 07:18; Stop 02/16/16 at 07:19; Status DC Vancomycin HCl (Vancomycin Inj) 2,000 mg STK-MED ONCE .ROUTE ; Start 02/16/16 at 07:40; Stop 02/16/16 at 07:41; Status DC Thrombin (Thrombin Top Soln) 10,000 units STK-MED ONCE .ROUTE Last administered on 02/16/16at 10:32; Start 02/16/16 at 09:49; Stop 02/16/16 at 09:50 ; Status DC Gelatin 1 foam 1 foam STK-MED ONCE .ROUTE ; Start 02/16/16 at 11:08; Stop at 11:09; Status DC Potassium Chloride/Sodium Chloride (NS + KCl 20 Meq Inj) 1,000 ml @ 100 mls/hr Q10H IV Last administered on 02/17/16at 20:23; Start 02/16/16 at 11:45; Stop at 06:47; Status DC IV Flush (NS Flush) 2 ml UNSCH PRN IVF FLUSH AFTER USING IV ACCESS Last administered on 03/04/16at 17:14; Start 02/16/16 at 11:45 IV Flush 2 ml 2 ml BID IVF Last administered on 03/23/16at 20:41; Start 02/16/16 at 21:00 Cefazolin Sodium/ Dextrose 50 ml @ 100 mls/hr Q8H IV Last administered on 02/16at 07:31; Start 02/16/16 at 16:00; Stop 02/17/16 at 08:29; Status DC Levetriacetam (Keppra 500 Mg Premix Inj) 100 ml @ 400 mls/hr Q12H IV Last administered on 02/27/16at 22:20; Start 02/16/16 at 11:45; Stop 02/28/16 at 07:46; Status DC Bisacodyl (Dulcolax Supp) 10 mg DAILY PRN LA CONSTIPATION Last administered on 02/21/16at 06:05; Start 02/16/16 at 11:45 Docusate Sodium (Colace) 100 mg BID PO Last administered on 02/19/16at 21:02; Start 02/16/16 at 21:00; Stop 02/20/16 at 06:51; Status DC Pantoprazole Sodium (Protonix) 40 mg DAILY PO ; Start 02/17/16 at 09:00; Stop at 06:48; Status DC Pantoprazole Sodium (Protonix Inj) 40 mg DAILY IVP ; Start 02/17/16 at 09:00; Stop 02/18/16 at 06:48; Status DC Ondansetron HCl (Zofran Inj) 4 mg Q6H PRN IV NAUSEA OR VOMITING; Start at 11:45 Calcium Gluconate 1 gm 1 gm UNSCH PRN IV SEE LABEL COMMENTS; Start 02/16/16 at 11:45; Stop 02/27/16 at 15:15; Status DC Potassium Chloride 100 ml @ 50 mls/hr UNSCH PRN IV POTASSIUM LESS THAN 4 Last administered on 02/18/16at 17:59; Start 02/16/16 at 11:45 Magnesium Sulfate/ Sodium Chloride (Magnesium Sulfate Inj/NS Inj) 108 ml @ 108 mls/hr UNSCH PRN IV MAGNESIUM LESS THAN 2; Start 02/16/16 at 11:45; Stop at 07:46; Status DC Acetaminophen/ Hydrocodone Bitart ([place] 10-325 Mg) 1 tab Q4H PRN PO PAIN SCALE 1 TO 5; Start 02/16/16 at 11:45; Stop 02/27/16 at 15:15; Status DC Acetaminophen/ Hydrocodone Bitart ([place] 10-325 Mg) 2 tab Q4H PRN PO PAIN SCALE 6 TO 10 Last administered on 02/26/16at 16:56; Start 02/16/16 at 11:45; Stop 02/27/16 at 15:15; Status DC Morphine Sulfate (Morphine Inj) 2 mg Q2H PRN IV PUSH PAIN SCALE 1 TO 6 Last administered on 02/20/16at 01:03; Start 02/16/16 at 11:45; Stop 02/27/16 at 15:15 ; Status DC Morphine Sulfate (Morphine Inj) 4 mg Q2H PRN IV PUSH PAIN SCALE 7 TO 10 Last administered on 02/27/16at 02:45; Start 02/16/16 at 11:45; Stop 02/27/16 at 15:15; Status DC Acetaminophen (Tylenol) 650 mg Q4H PRN PO TEMPERATURE > 101.5 F Last administered on 03/06/16at 11:19; Start 02/16/16 at 11:45; Stop 03/19/16 at 09:23 ; Status DC Miscellaneous Information ALL NURSING DEPARTME... UNSCH PRN XX SEE LABEL COMMENTS; Start 02/16/16 at 12:45; Stop 02/17/16 at 12:44; Status DC Fentanyl Citrate (Sublimaze Inj) 500 mcg STK-MED ONCE .ROUTE ; Start 02/16/16 at 13:01; Stop 02/16/16 at 13:02; Status DC Norepinephrine Bitartrate 4 mg 4 mg STK-MED ONCE .ROUTE Last administered on at 07:27; Start 02/17/16 at 07:27; Stop 02/17/16 at 07:28; Status DC Sodium Chloride 1,000 ml @ 1,000 mls/hr Q1H ONCE IV Last administered on at 08:15; Start 02/17/16 at 08:15; Stop 02/17/16 at 09:14; Status DC Norepinephrine Bitartrate (Levophed-Dextrose Drip) 250 ml @ 0 mls/hr TITRATE IV ; Start 02/17/16 at 07:45; Stop 02/17/16 at 16:32; Status DC Terbutaline Sulfate (Brethine Inj) 1 mg UNSCH PRN SQ For Extravasation; Start 02/17/16 at 07:45; Stop 02/21/16 at 15:14; Status DC Chlordiazepoxide (Librium) 50 mg Q8H PO Last administered on 02/20/16at 01:03; Start 02/17/16 at 08:00; Stop 02/20/16 at 07:59; Status DC Iohexol (Omnipaque 350 Inj) 71 ml STK-MED ONCE IV Last administered on at 04:31; Start 02/16/16 at 04:31; Stop 02/17/16 at 08:10; Status DC Norepinephrine Bitartrate 4 mg 4 mg STK-MED ONCE .ROUTE ; Start 02/17/16 at 14: 33; Stop 02/17/16 at 14:34; Status DC Norepinephrine Bitartrate 4 mg/ Sodium Chloride 254 ml @ 0 mls/hr TITRATE IV Last administered on 02/20/16at 16:36; Start 02/17/16 at 17:00; Stop 02/21/16 at 15:14; Status DC Sodium Chloride (Sodium Chloride 3% Inj) 500 ml @ 30 mls/hr CONTINUOUS IV Last administered on 02/19/16at 02:14; Start 02/18/16 at 06:15; Stop 02/19/16 at 07:26; Status DC Metoclopramide HCl (Reglan Inj) 10 mg Q8HR IV PUSH Last administered on at 04:31; Start 02/18/16 at 06:45; Stop 02/28/16 at 07:46; Status DC Lactulose (Lactulose Liq) 30 ml DAILY PO Last administered on 02/26/16at 10:46; Start 02/18/16 at 09:00; Stop 02/27/16 at 09:03; Status DC Furosemide 40 mg 40 mg ONCE ONCE IV PUSH Last administered on 02/18/16at 07:25 ; Start 02/18/16 at 06:45; Stop 02/18/16 at 06:49; Status DC Magnesium Sulfate/ Dextrose (Magnesium Sulfate 1 Gm Premix) 100 ml @ 100 mls/ hr Q1H IV Last administered on 02/18/16at 08:00; Start 02/18/16 at 07:00; Stop 02/18/16 at 08:59; Status DC Metoclopramide HCl 10 mg 10 mg Q8HR IM ; Start 02/18/16 at 09:00; Stop 02/18/16 at 10:36; Status DC Sodium Chloride 240 meq/Syringe / Bag 60 ml @ 0 mls/hr ONCE ONCE IV Last administered on 02/18/16at 10:38; Start 02/18/16 at 12:00; Stop 02/18/16 at 12:01 ; Status DC Potassium Chloride 100 ml @ 25 mls/hr Q4H IV ; Start 02/18/16 at 19:45; Stop at 19:45; Status DC Potassium Chloride 30 meq/ Sodium Chloride 115 ml @ 38.333 mls/ hr Q3H IV Last administered on 02/18/16at 23:15; Start 02/18/16 at 21:00; Stop 02/19/16 at 02:59; Status DC Potassium Phosphate/Sodium Chloride (Potassium Phosphate Inj/NS Inj) 155 ml @ 38.75 mls/ hr ONCE ONCE IV Last administered on 02/18/16at 20:07; Start at 21:00; Stop 02/19/16 at 00:59; Status DC Calcium Chloride 1 gm 1 gm ONCE ONCE IV PUSH Last administered on 02/18/16at 20 :06; Start 02/18/16 at 20:00; Stop 02/18/16 at 20:01; Status DC Potassium Chloride (KCl 40 Meq Premix Inj) 100 ml @ 25 mls/hr BOLUS ONCE IV Last administered on 02/19/16at 05:43; Start 02/19/16 at 05:30; Stop 02/19/16 at 09:29; Status DC Potassium Chloride 40 meq 40 meq ONCE ONCE PO Last administered on 02/19/16at 05:42; Start 02/19/16 at 05:30; Stop 02/19/16 at 05:31; Status DC Potassium Chloride 100 ml @ 50 mls/hr Q2H PRN IV For Potassium 2.8 - 3.2 mEq/ L Last administered on 02/26/16at 10:47; Start 02/19/16 at 07:30 Potassium Chloride (KCl 20 Meq Premix Inj) 100 ml @ 50 mls/hr Q2H PRN IV For Potassium 2.8 - 3.2 mEq/L; Start 02/19/16 at 07:30 Potassium Chloride 40 meq 40 meq UNSCH PRN PO/TUBE For Potassium 3.3 - 3.5 mEq/ L Last administered on 03/03/16at 09:31; Start 02/19/16 at 07:30 Potassium Chloride 100 ml @ 25 mls/hr UNSCH PRN IV For Potassium 3.3 - 3.5 mEq /L Last administered on 02/29/16at 06:47; Start 02/19/16 at 07:30 Potassium Chloride 100 ml @ 50 mls/hr Q2H PRN IV For Potassium 3.3 - 3.5 mEq/L ; Start 02/19/16 at 07:30 Magnesium Sulfate/ Sodium Chloride (Magnesium Sulfate Inj/NS Inj) 100 ml @ 50 mls/hr UNSCH PRN IV For Magnesium 0.9 - 1.1 mg/dL; Start 02/19/16 at 07:30 Magnesium Oxide 800 mg 800 mg UNSCH PRN PO For Magnesium 1.2 - 1.6 mg/dL; Start 02/19/16 at 07:30 Magnesium Sulfate/ Sodium Chloride (Magnesium Sulfate Inj/NS Inj) 100 ml @ 50 mls/hr UNSCH PRN IV For Magnesium 1.2 - 1.6 mg/dL; Start 02/19/16 at 07:30 Potassium Phosphate 2000 mg 2,000 mg Q4H PRN PO For Phosphorus < 2.5 mg/dL; Start 02/19/16 at 07:30 Sodium Phosphate/ Sodium Chloride (Sodium Phosphate Inj/NS 250 ml Inj) 250 ml @ 42 mls/hr UNSCH PRN IV For Phosphorus < 2.5 mg/dL; Start 02/19/16 at 07:30 Potassium Chloride (KCl 40 Meq/30 ml Liq) 40 meq UNSCH PRN PO/TUBE SEE LABEL COMMENTS; Start 02/19/16 at 07:30 Potassium Phosphate 2000 mg 2,000 mg UNSCH PRN PO/TUBE SEE LABEL COMMENTS; Start 02/19/16 at 07:30 Potassium Phosphate 30 mmol/ Sodium Chloride 260 ml @ 42 mls/hr UNSCH PRN IV SEE LABEL COMMENTS; Start 02/19/16 at 07:30 Sodium Chloride (NS 250 ml Inj) 250 ml @ As Directed STK-MED ONCE .ROUTE ; Start 02/19/16 at 21:51; Stop 02/19/16 at 21:52; Status DC Norepinephrine Bitartrate (Levophed Inj) 4 mg STK-MED ONCE .ROUTE ; Start at 21:51; Stop 02/19/16 at 21:52; Status DC Docusate Sodium (Colace Liq) 100 mg BID NG Last administered on 03/18/16at 08:07 ; Start 02/20/16 at 09:00; Stop 03/18/16 at 15:25; Status DC Polyethylene Glycol 17 gm 17 gm DAILY PO Last administered on 02/26/16at 10:47; Start 02/20/16 at 09:00; Stop 02/27/16 at 09:03; Status DC Pharmacy Profile Note 0 ml @ 0 mls/hr UNSCH XX ; Start 02/20/16 at 08:15; Stop 02/25/16 at 09:02; Status DC Piperacillin Sod/ Tazobactam Sod (Zosyn 3.375 Gm Premix) 50 ml @ 100 mls/hr Q8H IV Last administered on 02/25/16at 08:28; Start 02/20/16 at 09:00; Stop at 09:02; Status DC Propofol (Diprivan 200 Mg/20 ml Inj) 400 mg STK-MED ONCE IV ; Start 02/16/16 at 12:00; Stop 02/20/16 at 08:25; Status DC Phenylephrine HCl 2000 mcg 2,000 mcg STK-MED ONCE IV ; Start 02/16/16 at 12:00; Stop 02/20/16 at 08:25; Status DC Lactated Ringer's 2,000 ml @ As Directed STK-MED ONCE IV ; Start 02/16/16 at 12 :00; Stop 02/20/16 at 08:25; Status DC Parenteral Electrolytes 1,000 ml @ As Directed STK-MED ONCE IV ; Start at 12:00; Stop 02/20/16 at 08:25; Status DC Vancomycin HCl/ Sodium Chloride (Vancomycin Inj/ NS 500 ml Inj) 500 ml @ 250 mls/hr Q12H IV Last administered on 02/22/16at 11:52; Start 02/20/16 at 11:00; Stop 02/22/16 at 13:01; Status DC Miscellaneous Information SPECIFIC LAB TO BE DRAWN:VANCOMYCIN TROUGH DATE TO... ONCE ONCE XX Last administered on 02/22/16at 11:15; Start 02/22/16 at 10:45; Stop 02/22/16 at 10:46; Status DC Midazolam HCl (Versed Inj) 10 mg ONCE ONCE IV PUSH Last administered on at 15:15; Start 02/21/16 at 15:15; Stop 02/21/16 at 15:16; Status DC Vecuronium [place] (Norcuron 10 Mg Inj) 10 mg ONCE ONCE IV PUSH Last administered on 02/21/16at 15:15; Start 02/21/16 at 15:15; Stop 02/21/16 at 15:16; Status DC Fentanyl Citrate 250 mcg 250 mcg ONCE ONCE IV PUSH Last administered on at 15:15; Start 02/21/16 at 15:15; Stop 02/21/16 at 15:16; Status DC Norepinephrine Bitartrate (Levophed-Dextrose Drip) 250 ml @ 0 mls/hr TITRATE IV Last administered on 02/26/16at 21:49; Start 02/21/16 at 15:15; Stop 03/02/16 at 16:33; Status DC Terbutaline Sulfate (Brethine Inj) 1 mg UNSCH PRN SQ For Extravasation; Start 02/21/16 at 15:15; Stop 03/07/16 at 07:46; Status DC Albumin Human 12.5 gm 12.5 gm NOW ONCE IV Last administered on 02/21/16at 21:34 ; Start 02/21/16 at 21:15; Stop 02/21/16 at 21:16; Status DC Magnesium Sulfate/ Dextrose (Magnesium Sulfate 1 Gm Premix) 100 ml @ 100 mls/ hr Q1H IV Last administered on 02/21/16at 22:21; Start 02/21/16 at 21:15; Stop 02/21/16 at 23:14; Status DC Proparacaine HCl (Alcaine 0.5% Opht Soln) 1 drop ONCE ONCE LEFT EYE ; Start 02/22/16 at 06:30; Stop 02/22/16 at 06:31; Status Cancel Tropicamide (Mydriacyl 1% Opth Soln) 1 drop Q5M LEFT EYE ; Start 02/22/16 at 06: 30; Stop 02/22/16 at 06:46; Status Cancel Phenylephrine HCl (Neofrin 10% Opth Soln) 1 drop Q5M LEFT EYE ; Start 02/22/16 at 06:30; Stop 02/22/16 at 06:46; Status Cancel Cyclopentolate HCl (Cyclogyl 1% Opth Soln) 1 drop Q5M LEFT EYE ; Start 02/22/16 at 06:30; Stop 02/22/16 at 06:46; Status Cancel Flurbiprofen Sodium (Ocufen 0.03% Oph Soln) 1 drop Q5M LEFT EYE ; Start at 06:30; Stop 02/22/16 at 06:46; Status Cancel Lidocaine HCl 5 ml 5 ml ONCE ONCE TOPICAL ; Start 02/22/16 at 06:30; Stop at 06:31; Status Cancel Vancomycin HCl/ Sodium Chloride (Vancomycin Inj/ NS 500 ml Inj) 500 ml @ 250 mls/hr Q12H IV Last administered on 02/25/16at 00:58; Start 02/23/16 at 00:00; Stop 02/25/16 at 09:02; Status DC Miscellaneous Information SPECIFIC LAB TO BE JOSE F... ONCE ONCE XX ; Start at 23:45; Stop 02/23/16 at 23:46; Status DC Labetalol HCl (Trandate Inj) 20 mg Q2H PRN IV PUSH SBP > 160 Last administered on 03/21/16at 01:04; Start 02/22/16 at 15:00 Metoprolol Tartrate (Lopressor) 25 mg Q12HR PO Last administered on 02/23/16at 08 :31; Start 02/23/16 at 09:00; Stop 02/23/16 at 09:00; Status DC Lisinopril (Prinivil) 5 mg DAILY PO Last administered on 02/25/16at 08:28; Start 02/23/16 at 09:00; Stop 02/25/16 at 09:02; Status DC Hydralazine HCl (Apresoline Inj) 10 mg Q4H PRN IV PUSH SBP > 170 Last administered on 03/23/16at 02:09; Start 02/22/16 at 15:00 Alteplase, Recombinant (Cathflo Activase Inj) 2 mg ONCE IV FLUSH Last administered on 02/22/16at 23:36; Start 02/22/16 at 22:30; Stop 02/22/16 at 23:30; Status DC Alteplase, Recombinant (Cathflo Activase Inj) 2 mg ONCE IV FLUSH Last administered on 02/23/16at 01:49; Start 02/22/16 at 22:30; Stop 02/22/16 at 23:30; Status DC Alteplase, Recombinant (Cathflo Activase Inj) 2 mg ONCE IV FLUSH Last administered on 02/23/16at 02:51; Start 02/22/16 at 22:30; Stop 02/22/16 at 23:30; Status DC Metoprolol Tartrate (Lopressor) 75 mg Q12HR PO Last administered on 02/25/16at 20 :12; Start 02/23/16 at 21:00; Stop 02/26/16 at 09:26; Status DC Clonidine (Catapres) 0.2 mg Q8HR PO Last administered on 02/25/16at 20:12; Start 02/23/16 at 09:00; Stop 02/26/16 at 09:26; Status DC Metoprolol Tartrate (Lopressor) 50 mg NOW ONCE PO Last administered on at 09:10; Start 02/23/16 at 09:15; Stop 02/23/16 at 09:16; Status DC Miscellaneous Information SPECIFIC LAB TO BE [facility] F... ONCE ONCE XX ; Start at 11:45; Stop 02/25/16 at 11:46; Status DC Lisinopril 10 mg 10 mg DAILY PO Last administered on 02/25/16at 10:13; Start 02/24 at 09:00; Stop 02/26/16 at 09:26; Status DC Ceftriaxone Sodium/Sodium Chloride (Rocephin Inj/NS Inj) 100 ml @ 200 mls/hr Q24H IV Last administered on 03/09/16at 08:41; Start 02/25/16 at 09:00; Stop at 15:55; Status DC Amlodipine Besylate (Norvasc) 5 mg DAILY PO Last administered on 02/25/16 10:13 ; Start 02/25/16 at 09:00; Stop 02/26/16 at 09:26; Status DC Furosemide (Lasix) 20 mg DAILY PO Last administered on 02/26/16at 10:46; Start at 09:15; Stop 02/27/16 at 07:40; Status DC Albumin Human 12.5 gm 12.5 gm NOW ONCE IV Last administered on 02/26/16at 00:41 ; Start 02/26/16 at 00:45; Stop 02/26/16 at 00:46; Status DC Sodium Chloride 500 ml @ 35 mls/hr Q14H IV Last administered on 03/01/16at 03: 42; Start 02/26/16 at 04:30; Stop 03/01/16 at 08:05;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
[2016-03-24] MEDS: HYOSCYAMINE SOLN 0.125 MG/ML 15 ML BTL PEG PRN (21:40)
[2016-03-25] VITALS (14 sets, daily range): BP systolic 135–160; BP diastolic 62–95; PULSE 58–101; RESP 14–20; TEMP 98–98.9; O2SAT 94–98
[2016-03-25] MEDS: CHLORHEXIDINE GLUCONATE 2 % 1 PACK (2 CLOTHS) TOP SCH ×2 (04:36→22:17)
[2016-03-25] MEDS: METOPROLOL TARTRATE 50 MG TAB PEG SCH ×3 (05:32→22:16)
[2016-03-25] MEDS: hydrALAZINE HCL 25 MG TAB PO SCH ×3 (05:32→22:16)
[2016-03-25] MEDS: FREE WATER G-TUBE SCH ×3 (05:33→22:16)
[2016-03-25] MEDS: HYOSCYAMINE SOLN 0.125 MG/ML 15 ML BTL PEG PRN ×2 (07:07→23:20)
[2016-03-25] MEDS: CHLORHEXIDINE 0.12% (ORAL KIT) 15 ML CUP MT SCH ×2 (08:32→19:37)
[2016-03-25] MEDS: levETIRAcetam 500 MG/5 ML UDC TUBE SCH ×2 (10:03→21:11)
[2016-03-25] MEDS: LANSOPRAZOLE SOLUTAB 30 MG TAB NG SCH (10:04)
[2016-03-25] MEDS: ENOXAPARIN SODIUM 30 MG/0.3 ML SYRINGE SQ SCH ×2 (10:08→21:11)
[2016-03-25] MEDS: METHADONE HCL 10 MG/10 ML ORAL SOLUTION PO SCH ×2 (10:08→21:11)
[2016-03-25] MEDS: SODIUM CHLORIDE 0.9% FLUSH 5 ML FLUSH IVF SCH ×2 (10:09→21:11)
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
[2016-03-25] MEDS: hydrALAZINE HCL 20 MG/ML VIAL IV PUSH PRN (19:37)
[2016-03-25] MEDS: BISACODYL 10 MG SUPP PR PRN (19:37)
[2016-03-26] VITALS (14 sets, daily range): BP systolic 126–166; BP diastolic 72–91; PULSE 66–85; RESP 17–24; TEMP 97.6–98.8; O2SAT 95–100
[2016-03-26] MEDS: METOPROLOL TARTRATE 50 MG TAB PEG SCH ×3 (05:39→21:53)
[2016-03-26] MEDS: hydrALAZINE HCL 25 MG TAB PO SCH ×3 (05:40→21:53)
[2016-03-26] MEDS: FREE WATER G-TUBE SCH ×3 (05:40→21:53)
[2016-03-26] MEDS: SODIUM CHLORIDE 0.9% FLUSH 5 ML FLUSH IVF SCH ×2 (09:00→21:53)
[2016-03-26] MEDS: levETIRAcetam 500 MG/5 ML UDC TUBE SCH ×2 (09:32→21:52)
[2016-03-26] MEDS: LANSOPRAZOLE SOLUTAB 30 MG TAB NG SCH (09:32)
[2016-03-26] MEDS: METHADONE HCL 10 MG/10 ML ORAL SOLUTION PO SCH ×2 (09:34→21:53)
[2016-03-26] MEDS: CHLORHEXIDINE 0.12% (ORAL KIT) 15 ML CUP MT SCH ×2 (09:35→20:00)
[2016-03-26] MEDS: ENOXAPARIN SODIUM 30 MG/0.3 ML SYRINGE SQ SCH ×2 (09:36→21:52)
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
[2016-03-27] VITALS (12 sets, daily range): BP systolic 108–154; BP diastolic 59–85; PULSE 64–84; RESP 15–22; TEMP 97.6–98.9; O2SAT 95–99
--- NOTE | 2016-03-27 04:59 | RADRPT ---
EXAM DATE/TIME: 03/27/2016 03:46 [facility] COMPARISON: CHEST SINGLE AP, March 17, 2016, 5:23. INDICATIONS : Pneumonia. MEDICAL HISTORY : None. SURGICAL HISTORY : Craniotomy. ENCOUNTER: Subsequent ACUITY: 4 - 6 days PAIN SCORE: Non-responsive. LOCATION: Bilateral chest FINDINGS: Mild air space opacities of the left midlung are similar to before. No large effusion seen. No pneumo thorax. Heart size stable, upper limits of normal. Trach collar again noted. Patient has a right arm PICC with tip in the right atrium. CONCLUSION: No significant change mild parenchymal opacities of the left lung. Duy Skelton MD on March 27, 2016 at 4:57 Board Certified Radiologist. This report was verified electronically.
[2016-03-27] MEDS: FREE WATER G-TUBE SCH ×3 (06:00→21:10)
[2016-03-27] MEDS: CHLORHEXIDINE GLUCONATE 2 % 1 PACK (2 CLOTHS) TOP SCH (06:15)
[2016-03-27] MEDS: METOPROLOL TARTRATE 50 MG TAB PEG SCH ×3 (06:17→21:10)
[2016-03-27] MEDS: hydrALAZINE HCL 25 MG TAB PO SCH ×3 (06:17→21:10)
[2016-03-27] MEDS: CHLORHEXIDINE 0.12% (ORAL KIT) 15 ML CUP MT SCH ×2 (08:00→21:10)
[2016-03-27] MEDS: levETIRAcetam 500 MG/5 ML UDC TUBE SCH ×2 (08:59→21:10)
[2016-03-27] MEDS: METHADONE HCL 10 MG/10 ML ORAL SOLUTION PO SCH ×2 (08:59→21:10)
[2016-03-27] MEDS: ENOXAPARIN SODIUM 30 MG/0.3 ML SYRINGE SQ SCH ×2 (09:00→21:10)
[2016-03-27] MEDS: LANSOPRAZOLE SOLUTAB 30 MG TAB NG SCH (09:00)
[2016-03-27] MEDS: SODIUM CHLORIDE 0.9% FLUSH 5 ML FLUSH IVF SCH ×2 (09:00→21:10)
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
[2016-03-28] VITALS (9 sets, daily range): BP systolic 122–154; BP diastolic 63–90; PULSE 67–93; RESP 15–23; TEMP 98–98.3; O2SAT 95–98
[2016-03-28] MEDS: CHLORHEXIDINE GLUCONATE 2 % 1 PACK (2 CLOTHS) TOP SCH (04:00)
[2016-03-28 04:36] LABS: AUTOMATED NEUTROPHIL # 7.9 TH/MM3 (1.8-7.7); BASOPHIL # 0.1 TH/MM3 (0-0.2); BASOPHIL % 0.7 % (0.0-2.0); EOSINOPHIL # 0.3 TH/MM3 (0-0.4); EOSINOPHIL % 2.9 % (0.0-4.0); HEMATOCRIT 38.8 % (39.0-51.0); HEMO FLAGS DIFF FINAL; LYMPH % 17.7 % (9.0-44.0); MEAN CELL VOLUME 90.2 FL (80.0-100.0); MEAN CORPUSCULAR HEMOGLOBIN 28.1 PG (27.0-34.0); MEAN CORPUSCULAR HGB CONC 31.2 % (32.0-36.0); MONO % 8.5 % (0.0-8.0); NEUT % 70.2 % (16.0-70.0); PLATELET COUNT 451 TH/MM3 (150-450); RED CELL DISTRIBUTION WIDTH 15.3 % (11.6-17.2); WHITE BLOOD COUNT 11.3 TH/MM3 (4.0-11.0)
[2016-03-28 04:48] LABS: BICARBONATE 29.5 MEQ/L (21.0-32.0); POTASSIUM 3.8 MEQ/L (3.5-5.1)
[2016-03-28] MEDS: METOPROLOL TARTRATE 50 MG TAB PEG SCH ×3 (05:55→21:33)
[2016-03-28] MEDS: hydrALAZINE HCL 25 MG TAB PO SCH ×3 (05:55→21:33)
[2016-03-28] MEDS: FREE WATER G-TUBE SCH ×3 (05:56→21:33)
[2016-03-28] MEDS: CHLORHEXIDINE 0.12% (ORAL KIT) 15 ML CUP MT SCH ×2 (08:00→21:33)
[2016-03-28] MEDS: levETIRAcetam 500 MG/5 ML UDC TUBE SCH ×2 (08:44→21:33)
[2016-03-28] MEDS: LANSOPRAZOLE SOLUTAB 30 MG TAB NG SCH (08:45)
[2016-03-28] MEDS: METHADONE HCL 10 MG/10 ML ORAL SOLUTION PO SCH ×2 (08:45→21:33)
[2016-03-28] MEDS: ENOXAPARIN SODIUM 30 MG/0.3 ML SYRINGE SQ SCH (08:46)
[2016-03-28] MEDS: SODIUM CHLORIDE 0.9% FLUSH 5 ML FLUSH IVF SCH ×2 (08:47→21:33)
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
[2016-03-28] MEDS ORDERED: VANCOMYCIN INJ 1,000 MG in SODIUM CHLOR 0.9% 250 ML INJ 250 ML IV SCH (14:15)
[2016-03-28] MEDS: CHLORHEXIDINE GLUCONATE 4% SOLN 120 ML BTL TOP SCH (21:00)
[2016-03-28] MEDS: SODIUM CHLOR 0.9% 1000 ML INJ 1,000 ML IV SCH (23:00)
[2016-03-29] VITALS (11 sets, daily range): BP systolic 110–154; BP diastolic 57–88; PULSE 65–85; RESP 15–22; TEMP 97.4–98; O2SAT 94–98
[2016-03-29] MEDS: CHLORHEXIDINE GLUCONATE 2 % 1 PACK (2 CLOTHS) TOP SCH (04:00)
[2016-03-29] MEDS: hydrALAZINE HCL 25 MG TAB PO SCH ×3 (05:09→21:36)
[2016-03-29] MEDS: FREE WATER G-TUBE SCH ×3 (05:09→21:36)
[2016-03-29] MEDS: METOPROLOL TARTRATE 50 MG TAB PEG SCH ×3 (05:09→21:36)
[2016-03-29] MEDS: ceFAZolin 2 GM PREMIX 50 ML IV SCH ×3 (07:14→16:34)
[2016-03-29] MEDS ORDERED: VANCOMYCIN HCL 1000 MG VIAL ONE (07:21)
[2016-03-29] MEDS ORDERED: LIDOCAINE 1%/EPINEPHrine 1:100,000 SOLN 30 ML VIAL ONE (07:21)
[2016-03-29] MEDS ORDERED: BACITRACIN TOP OINT 15 GM TUBE ONE (07:22)
[2016-03-29] MEDS ORDERED: GENTAMICIN SULFATE 80 MG/2 ML VIAL ONE (07:22)
[2016-03-29] MEDS ORDERED: SODIUM CHLOR 0.9% 250 ML INJ 250 ML ONE (07:22)
[2016-03-29] MEDS ORDERED: THROMBIN (TOPICAL) 5,000 UNIT VIAL ONE (07:23)
[2016-03-29] MEDS ORDERED: GELFOAM SIZE 100 ONE (07:25)
[2016-03-29] MEDS ORDERED: levETIRAcetam 500MG PREMIX INJ 100 ML IV ONE (08:00)
[2016-03-29] MEDS: CHLORHEXIDINE 0.12% (ORAL KIT) 15 ML CUP MT SCH ×2 (08:00→20:06)
[2016-03-29] MEDS ORDERED: ARTIFICIAL TEARS OPTH OINT 3.5 APPLIC/3.5 GM TUBO ONE (08:03)
[2016-03-29] MEDS ORDERED: fentaNYL CITRATE 250 MCG/5 ML AMP ONE ×2 (08:03→10:31)
[2016-03-29] MEDS ORDERED: ACETAMINOPHEN 1000 MG/100 ML VIAL IV ONE (08:03)
[2016-03-29] MEDS ORDERED: MIDAZOLAM HCL 2 MG/2 ML VIAL ONE (08:09)
[2016-03-29] MEDS ORDERED: RANITIDINE 50 MG/2 ML VIAL ONE (08:10)
[2016-03-29] MEDS: SODIUM CHLOR 0.9% 1000 ML INJ 1,000 ML IV SCH ×4 (08:25→20:17)
[2016-03-29] MEDS: SODIUM CHLORIDE 0.9% FLUSH 5 ML FLUSH IVF SCH ×3 (08:26→21:00)
[2016-03-29] MEDS: METHADONE HCL 10 MG/10 ML ORAL SOLUTION PO SCH ×2 (08:26→20:04)
[2016-03-29] MEDS: levETIRAcetam 500 MG/5 ML UDC TUBE SCH ×2 (08:26→20:05)
[2016-03-29] MEDS: LANSOPRAZOLE SOLUTAB 30 MG TAB NG SCH (08:26)
[2016-03-29] MEDS ORDERED: LIDOCAINE 1%/EPINEPHrine 1:100,000 SOLN 30 ML VIAL INFIL ONE (08:42)
[2016-03-29] MEDS ORDERED: ACETAMINOPHEN 325 MG TAB PO PRN (10:30)
[2016-03-29] MEDS ORDERED: CALCIUM GLUCONATE 10% 1 GM/10 ML VIAL IV PRN (10:30)
[2016-03-29] MEDS ORDERED: MAGNESIUM SULFATE INJ 4 GM in SODIUM CHLORIDE 0.9% INJ 100 ML IV PRN (10:30)
[2016-03-29] MEDS ORDERED: SODIUM CHLORIDE 0.9% FLUSH 5 ML FLUSH IVF PRN (10:30)
[2016-03-29] MEDS ORDERED: POTASSIUM CHLOR 20 MEQ PREMIX 100 ML IV PRN (10:30)
[2016-03-29] MEDS ORDERED: ONDANSETRON HCL 4 MG/2 ML VIAL IV PRN (10:30)
[2016-03-29] MEDS ORDERED: DO NOT ADM ANY ANTICOAGULANT DRUGS XX PRN (10:45)
[2016-03-29] MEDS: PANTOPRAZOLE SOD 40 MG DELAYED RELEASE TAB PO SCH (11:00)
--- NOTE | 2016-03-29 11:45 | PD.OP ---
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 A cranioplasty was indicated. The [id number] details of the procedure, indications, alternatives, risks and potential complications were fully discussed with the patient's brother. He fully understood. All his questions were answered. No guarantees were given. The patient voiced requesting the procedure and provided informed consents. He was offered the alternative of delaying the procedure and continuing with nonsurgical management. DETAILS OF THE SURGICAL PROCEDURE The patient was endotracheally intubated and mechanically ventilated. A Cuenca catheter, bilateral AMARJIT hose and sequential compression devices were placed and kept throughout the procedure. The patient was positioned supine on a 3080 table over a soft mattress. The head was placed on a gel doughnut. All pressure points were carefully padded with egg crate mattress. The eyes were tapped shut after ointment was applied by the anesthesiologist to prevent corneal abrasion. A Wanda hugger was placed over the exposed lower body to maintain control of the core body temperature. The old incision on the left frontotemporal parietal region was marked and infiltrated with 1% lidocaine with epinephrine 1:100,000 dilution. The skin incision was made with a #10 blade. Small cranial bleeders were controlled with the bipolar and Tereza clips were applied to the scalp edges. Then, the scalp flap was carefully elevated and retracted anteriorly, exposing the edges of the craniectomy defect. Hemostasis was secured and the incision was irrigated with a large amount of antibiotic solution. Then, the scalp was covered with a moist Ray-Josh soaked in antibiotic solution and fishhooks were applied to the incision. There was an area of dural defect which was reconstructed using a piece of Duragen. The patient's craniotomy flap was carefully washed with antibiotic solution and a reconstructive cranioplasty was performed by carefully placing autologous bone fragments which were carefully secured using striker plates and screws. The flap was secured using mini plates and 4 mm screws. A solid placement of the bone was achieved with good very cosmetic result. The incision was thoroughly irrigated with antibiotic solution. The closure was then performed in layers. The temporalis fascia was closed with interrupted 0 Vicryl sutures. The galea was closed with interrupted 3-0 Vicryl sutures. Mamie were applied to the skin. A 7 mm Clifton-Zapata drain was left in the subgaleal space and externalized through the a separate stab incision and secured with 3-0 nylon. A sterile dressing was placed. At the end of the procedure the sponge, needle and instrument counts were all correct. Estimated blood loss was 80 cc. No blood transfusion was given. No intraoperative complications occurred. The patient received prophylactic antibiotics. The patient was then transferred to the recovery room in stable condition. Gurmeet Ledesma MD Mar 29, 2016 11:45
[2016-03-29] MEDS ORDERED: PROPOFOL 200 MG/20 ML AMP IV ONE (12:00)
[2016-03-29] MEDS ORDERED: LACTATED RINGER'S 1000 ML INJ 1,000 ML IV ONE (12:00)
[2016-03-29] MEDS ORDERED: NEOSTIGMINE IV ONE (12:00)
[2016-03-29] MEDS ORDERED: ePHEDrine/NS 50 MG/5 ML SYR IV ONE (12:00)
[2016-03-29] MEDS ORDERED: ONDANSETRON HCL 4 MG/2 ML VIAL IV PUSH ONE (12:00)
[2016-03-29] MEDS ORDERED: PHENYLEPHRINE HCL 10 MG/ML VIAL IV ONE (12:00)
[2016-03-29] MEDS ORDERED: SODIUM CHLOR 0.9% 250 ML INJ 250 ML IV ONE (12:00)
[2016-03-29] MEDS ORDERED: PHENYLEPH/NS 1000 MCG/10 ML SYR IV ONE (12:00)
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
[2016-03-29] MEDS: MORPHINE SULFATE 4 MG/ML INJ IV PUSH PRN (15:44)
[2016-03-29] MEDS: hydrALAZINE HCL 20 MG/ML VIAL IV PUSH PRN (16:39)
[2016-03-29] MEDS: CHLORHEXIDINE GLUCONATE 4% SOLN 120 ML BTL TOP SCH (21:00)
[2016-03-30] VITALS (14 sets, daily range): BP systolic 135–177; BP diastolic 65–85; PULSE 62–88; RESP 16–20; TEMP 97.5–98.7; O2SAT 95–98
[2016-03-30] MEDS: ceFAZolin 2 GM PREMIX 50 ML IV SCH ×2 (00:01→08:41)
[2016-03-30] MEDS: hydrALAZINE HCL 20 MG/ML VIAL IV PUSH PRN (00:17)
[2016-03-30] MEDS: CHLORHEXIDINE GLUCONATE 2 % 1 PACK (2 CLOTHS) TOP SCH (02:35)
[2016-03-30] MEDS: hydrALAZINE HCL 25 MG TAB PO SCH (05:18)
[2016-03-30] MEDS: SODIUM CHLOR 0.9% 1000 ML INJ 1,000 ML IV SCH ×4 (05:18→16:17)
[2016-03-30] MEDS: METOPROLOL TARTRATE 50 MG TAB PEG SCH ×3 (05:18→21:04)
[2016-03-30] MEDS: FREE WATER G-TUBE SCH ×3 (05:19→21:05)
[2016-03-30] MEDS ORDERED: DOCUSATE SODIUM 100 MG CAP GT PRN (05:45)
[2016-03-30] MEDS ORDERED: MAGNESIUM HYDROXIDE SUSP 30 ML CUP G-TUBE PRN (05:45)
[2016-03-30] MEDS ORDERED: LACTULOSE SYRUP 20 GM/30 ML CUP G-TUBE PRN (05:45)
[2016-03-30 07:07] LABS: AUTOMATED NEUTROPHIL # 9.4 TH/MM3 (1.8-7.7); BASOPHIL # 0.1 TH/MM3 (0-0.2); BASOPHIL % 0.6 % (0.0-2.0); EOSINOPHIL # 0.3 TH/MM3 (0-0.4); EOSINOPHIL % 2.2 % (0.0-4.0); HEMATOCRIT 37.4 % (39.0-51.0); HEMO FLAGS DIFF FINAL; LYMPHOCYTE # 1.8 TH/MM3 (1.0-4.8); MEAN CELL VOLUME 90.5 FL (80.0-100.0); MEAN CORPUSCULAR HEMOGLOBIN 29.7 PG (27.0-34.0); MEAN CORPUSCULAR HGB CONC 32.9 % (32.0-36.0); MONO % 9.3 % (0.0-8.0); NEUT % 73.9 % (16.0-70.0); PLATELET COUNT 397 TH/MM3 (150-450); RED BLOOD COUNT 4.13 MIL/MM3 (4.50-5.90); RED CELL DISTRIBUTION WIDTH 15.1 % (11.6-17.2); WHITE BLOOD COUNT 12.7 TH/MM3 (4.0-11.0)
[2016-03-30 07:48] LABS: BICARBONATE 25.6 MEQ/L (21.0-32.0); POTASSIUM 3.5 MEQ/L (3.5-5.1)
[2016-03-30] MEDS: CHLORHEXIDINE 0.12% (ORAL KIT) 15 ML CUP MT SCH ×2 (08:00→21:05)
[2016-03-30] MEDS: SODIUM CHLORIDE 0.9% FLUSH 5 ML FLUSH IVF SCH ×4 (08:41→21:00)
[2016-03-30] MEDS: DOCUSATE SODIUM 50 MG/SENNA 8.6 MG TAB G-TUBE SCH ×2 (08:41→21:04)
[2016-03-30] MEDS: METHADONE HCL 10 MG/10 ML ORAL SOLUTION PO SCH (08:42)
[2016-03-30] MEDS: levETIRAcetam 500 MG/5 ML UDC TUBE SCH ×2 (08:42→21:04)
[2016-03-30] MEDS: PANTOPRAZOLE SOD 40 MG DELAYED RELEASE TAB PO SCH (08:42)
[2016-03-30] MEDS: LANSOPRAZOLE SOLUTAB 30 MG TAB NG SCH (08:42)
[2016-03-30] MEDS: POTASSIUM CHLOR 20 MEQ PREMIX 100 ML IV PRN (11:01)
[2016-03-30] MEDS ORDERED: POTASSIUM PHOSPHATE MONOBASIC 500 MG TAB G-TUBE PRN (11:30)
[2016-03-30] MEDS: hydrALAZINE HCL 25 MG TAB G-TUBE SCH ×2 (14:39→21:05)
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
[2016-03-30] MEDS: METHADONE HCL 10 MG/10 ML ORAL SOLUTION G-TUBE SCH (21:06)
[2016-03-31] VITALS (13 sets, daily range): BP systolic 122–167; BP diastolic 67–92; PULSE 64–94; RESP 15–23; TEMP 97.9–98.9; O2SAT 96–100
[2016-03-31] MEDS: CHLORHEXIDINE GLUCONATE 2 % 1 PACK (2 CLOTHS) TOP SCH (04:00)
[2016-03-31] MEDS: METOPROLOL TARTRATE 50 MG TAB PEG SCH ×3 (05:28→21:02)
[2016-03-31] MEDS: FREE WATER G-TUBE SCH ×3 (05:28→21:02)
[2016-03-31] MEDS: hydrALAZINE HCL 25 MG TAB G-TUBE SCH ×3 (05:28→21:02)
[2016-03-31 05:34] LABS: AUTOMATED NEUTROPHIL # 7.9 TH/MM3 (1.8-7.7); BASOPHIL % 0.4 % (0.0-2.0); EOSINOPHIL # 0.3 TH/MM3 (0-0.4); EOSINOPHIL % 2.3 % (0.0-4.0); HEMO FLAGS DIFF FINAL; LYMPH % 15.7 % (9.0-44.0); LYMPHOCYTE # 1.8 TH/MM3 (1.0-4.8); MEAN CELL VOLUME 89.3 FL (80.0-100.0); MEAN CORPUSCULAR HGB CONC 32.5 % (32.0-36.0); MONO % 10.8 % (0.0-8.0); NEUT % 70.8 % (16.0-70.0); PLATELET COUNT 401 TH/MM3 (150-450); RED BLOOD COUNT 4.14 MIL/MM3 (4.50-5.90); RED CELL DISTRIBUTION WIDTH 14.9 % (11.6-17.2); WHITE BLOOD COUNT 11.2 TH/MM3 (4.0-11.0)
[2016-03-31 06:04] LABS: BICARBONATE 24.7 MEQ/L (21.0-32.0); POTASSIUM 3.9 MEQ/L (3.5-5.1)
[2016-03-31] MEDS: CHLORHEXIDINE 0.12% (ORAL KIT) 15 ML CUP MT SCH ×2 (08:00→20:40)
[2016-03-31] MEDS: DOCUSATE SODIUM 50 MG/SENNA 8.6 MG TAB G-TUBE SCH ×2 (08:31→20:40)
[2016-03-31] MEDS: METHADONE HCL 10 MG/10 ML ORAL SOLUTION G-TUBE SCH ×2 (08:31→20:47)
[2016-03-31] MEDS: SODIUM CHLORIDE 0.9% FLUSH 5 ML FLUSH IVF SCH ×4 (08:32→20:45)
[2016-03-31] MEDS: levETIRAcetam 500 MG/5 ML UDC TUBE SCH ×2 (08:32→20:46)
[2016-03-31] MEDS: LANSOPRAZOLE SOLUTAB 30 MG TAB NG SCH (08:32)
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
[2016-04-01] VITALS (15 sets, daily range): BP systolic 126–167; BP diastolic 77–98; PULSE 65–88; RESP 13–22; TEMP 98–98.7; O2SAT 5–100
[2016-04-01] MEDS: CHLORHEXIDINE GLUCONATE 2 % 1 PACK (2 CLOTHS) TOP SCH (04:00)
[2016-04-01] MEDS: hydrALAZINE HCL 25 MG TAB G-TUBE SCH ×3 (05:55→20:57)
[2016-04-01] MEDS: METOPROLOL TARTRATE 50 MG TAB PEG SCH ×3 (05:55→20:57)
[2016-04-01] MEDS: FREE WATER G-TUBE SCH ×3 (05:56→20:57)
[2016-04-01] MEDS: SODIUM CHLORIDE 0.9% FLUSH 5 ML FLUSH IVF SCH ×4 (07:34→20:57)
[2016-04-01] MEDS: levETIRAcetam 500 MG/5 ML UDC TUBE SCH ×2 (07:59→20:57)
[2016-04-01] MEDS: LANSOPRAZOLE SOLUTAB 30 MG TAB NG SCH (07:59)
[2016-04-01] MEDS: CHLORHEXIDINE 0.12% (ORAL KIT) 15 ML CUP MT SCH (08:00)
[2016-04-01] MEDS: DOCUSATE SODIUM 50 MG/SENNA 8.6 MG TAB G-TUBE SCH ×2 (08:00→20:56)
[2016-04-01] MEDS: METHADONE HCL 10 MG/10 ML ORAL SOLUTION G-TUBE SCH ×2 (08:00→20:58)
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
[2016-04-01] MEDS: ENOXAPARIN SODIUM 40 MG/0.4 ML SYRINGE SQ SCH (11:42)
[2016-04-02] VITALS (13 sets, daily range): BP systolic 147–174; BP diastolic 85–97; PULSE 55–96; RESP 14–24; TEMP 97.8–98.6; O2SAT 95–98
[2016-04-02] MEDS: FREE WATER G-TUBE SCH ×3 (06:00→21:02)
[2016-04-02] MEDS: hydrALAZINE HCL 25 MG TAB G-TUBE SCH ×3 (06:27→21:01)
[2016-04-02] MEDS: METOPROLOL TARTRATE 50 MG TAB PEG SCH ×3 (06:27→21:01)
[2016-04-02] MEDS: DOCUSATE SODIUM 50 MG/SENNA 8.6 MG TAB G-TUBE SCH ×2 (09:00→21:00)
[2016-04-02] MEDS: SODIUM CHLORIDE 0.9% FLUSH 5 ML FLUSH IVF SCH ×4 (09:00→21:02)
[2016-04-02] MEDS: levETIRAcetam 500 MG/5 ML UDC TUBE SCH ×2 (09:52→21:01)
[2016-04-02] MEDS: LANSOPRAZOLE SOLUTAB 30 MG TAB NG SCH (09:52)
[2016-04-02] MEDS: METHADONE HCL 10 MG/10 ML ORAL SOLUTION G-TUBE SCH ×2 (09:53→21:02)
[2016-04-02] MEDS: ENOXAPARIN SODIUM 40 MG/0.4 ML SYRINGE SQ SCH (13:14)
[2016-04-03] VITALS (13 sets, daily range): BP systolic 91–159; BP diastolic 59–93; PULSE 58–78; RESP 13–20; TEMP 97.6–98.5; O2SAT 97–100
[2016-04-03] MEDS: METOPROLOL TARTRATE 50 MG TAB PEG SCH ×3 (05:06→22:45)
[2016-04-03] MEDS: FREE WATER G-TUBE SCH ×3 (05:06→22:45)
[2016-04-03] MEDS: hydrALAZINE HCL 25 MG TAB G-TUBE SCH ×3 (05:06→22:44)
[2016-04-03] MEDS: DOCUSATE SODIUM 50 MG/SENNA 8.6 MG TAB G-TUBE SCH ×2 (08:40→20:19)
[2016-04-03] MEDS: levETIRAcetam 500 MG/5 ML UDC TUBE SCH ×2 (08:40→20:20)
[2016-04-03] MEDS: LANSOPRAZOLE SOLUTAB 30 MG TAB NG SCH (08:40)
[2016-04-03] MEDS: METHADONE HCL 10 MG/10 ML ORAL SOLUTION G-TUBE SCH ×2 (08:41→20:19)
[2016-04-03] MEDS: SODIUM CHLORIDE 0.9% FLUSH 5 ML FLUSH IVF SCH ×4 (08:41→20:20)
[2016-04-03] MEDS: ENOXAPARIN SODIUM 40 MG/0.4 ML SYRINGE SQ SCH (12:54)
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
[2016-04-03] MEDS: IBUPROFEN SUSP 100 MG/5 ML UDC PO PRN (20:19)
[2016-04-03] MEDS: NYSTATIN 100,000 U/GM PWD 15 GM BTL TOPICAL SCH (20:19)
[2016-04-04] VITALS (14 sets, daily range): BP systolic 109–150; BP diastolic 56–84; PULSE 59–89; RESP 16–29; TEMP 97.5–98.1; O2SAT 96–97
[2016-04-04] MEDS: FREE WATER G-TUBE SCH ×3 (05:48→22:00)
[2016-04-04] MEDS: hydrALAZINE HCL 25 MG TAB G-TUBE SCH ×3 (05:48→22:00)
[2016-04-04] MEDS: METOPROLOL TARTRATE 50 MG TAB PEG SCH ×3 (05:48→22:00)
[2016-04-04] MEDS: levETIRAcetam 500 MG/5 ML UDC TUBE SCH ×2 (08:31→20:09)
[2016-04-04] MEDS: METHADONE HCL 10 MG/10 ML ORAL SOLUTION G-TUBE SCH ×2 (08:33→20:10)
[2016-04-04] MEDS: DOCUSATE SODIUM 50 MG/SENNA 8.6 MG TAB G-TUBE SCH ×2 (08:33→20:09)
[2016-04-04] MEDS: SODIUM CHLORIDE 0.9% FLUSH 5 ML FLUSH IVF SCH ×4 (08:33→20:10)
[2016-04-04] MEDS: LANSOPRAZOLE SOLUTAB 30 MG TAB NG SCH (08:33)
[2016-04-04] MEDS: NYSTATIN 100,000 U/GM PWD 15 GM BTL TOPICAL SCH ×2 (08:37→20:10)
[2016-04-04] MEDS: ENOXAPARIN SODIUM 40 MG/0.4 ML SYRINGE SQ SCH (11:57)
--- NOTE | 2016-04-04 12:53 | HHI.PR ---
Subjective Remarks Patient seen and evaluated today in follow-up for the right brain injury. More frustrated today due to difficulties with expressive aphasia. No new events overnight. Care plan discussed with LAND SURVEYING SURVEY WORKER and speech therapy at the bedside. Objective Vitals Vital Signs Date Time Temp Pulse Resp B/P Pulse Ox O2 Delivery O2 Flow Rate FiO2 04/04/16 07:21 97 21 04/04/16 06:00 84 04/04/16 04:00 97.9 82 23 135/60 97 04/04/16 04:00 61 04/04/16 02:00 66 04/04/16 00:00 98.1 60 22 150/78 97 04/04/16 00:00 61 04/03/16 22:00 61 04/03/16 20:00 97.8 70 17 150/86 97 04/03/16 20:00 70 04/03/16 19:00 Room Air 04/03/16 18:00 74 04/03/16 16:00 67 04/03/16 16:00 97.6 67 16 140/83 97 04/03/16 14:00 63 I/O 04/03/16 04/03/16 04/03/16 04/04/16 04/04/16 04/04/16 07:00 15:00 23:00 07:00 15:00 23:00 Intake Total 867 ml 1343 ml 680 ml Output Total 700 ml 900 ml 325 ml Balance 167 ml 443 ml 355 ml IV Total 161 ml 100 ml Tube Feeding 506 ml 843 ml 480 ml Tube Irrigant 200 ml 200 ml Other 200 ml 200 ml Output Urine Total 700 ml 900 ml 325 ml # Bowel Movements 0 0 0 Result Diagram: 03/31/16 0506 03/31/16 0506 Objective Remarks GENERAL: This is a well-nourished, well-developed patient, calm, status post left cranial surgery with jacinto in place CARDIOVASCULAR: Regular rate and rhythm without murmurs, gallops, or rubs. RESPIRATORY: Clear to auscultation. Breath sounds equal bilaterally. No wheezes , rales, or rhonchi. GASTROINTESTINAL: PEG tube Place, Abdomen soft, non-tender, nondistended. Normal active bowel sounds MUSCULOSKELETAL: Right extremity stiffness and edema, otherwise moves all 4 extremities NEURO: Alert & Oriented to person, significant expressive aphasia but attempts to answer questions Procedures 02/14 with right frontal bur hole and left subclavian line placement 02/15 with right occipital craniectomy with SDH evacuation 02/20 tracheostomy and PEG placement 02/25 left frontal temporoparietal decompressive craniotomy 03/06 PICC 03/29 bone flap replacement Date of Insertion: Mar 06, 2016 Line: PICC Side: Right Location: Antecubital A/P Problem List: (1) Traumatic brain injury Status: Acute Plan: Patient sustained a right occipital bone fracture and intracerebral hemorrhage of the right cerebellum with moderate mass effect on the brainstem. Patient is status post decompression per neurosurgery and is now also status post bone flap replacement. Patient continues with metabolic encephalopathy and is unable to care for himself. Continue with PT/OT/ST. (2) Acute respiratory failure Status: Acute Plan: Diet tolerated. Will follow to adjust tube feeding as needed (3) Moderate protein-calorie malnutrition Status: Acute Plan: Patient requiring tube feeds at 65 mL an hour. Follow electrolytes and blood sugar If tolerating oral intake over the next 48 hours may consider night the feeding only. Calorie counts (4) Hyperglycemia Status: Acute Plan: Hemoglobin A1c 5.3. Patient's glucose is improved on Glucerna. Continue to follow random blood sugars Discharge Planning Transferred to [facility] when bed available Discussed with case management regarding discharge planning DVT prophylaxis with Lovenox daily Stephany Cameron MD Apr 04, 2016 12:53
[2016-04-04] MEDS: IBUPROFEN SUSP 100 MG/5 ML UDC PO PRN (20:09)
[2016-04-05] VITALS (9 sets, daily range): BP systolic 114–158; BP diastolic 64–84; PULSE 70–92; RESP 15–29; TEMP 97.7–98.5; O2SAT 94–96
[2016-04-05] MEDS: hydrALAZINE HCL 25 MG TAB G-TUBE SCH ×3 (05:59→21:14)
[2016-04-05] MEDS: METOPROLOL TARTRATE 50 MG TAB PEG SCH ×3 (06:00→21:14)
[2016-04-05] MEDS: FREE WATER G-TUBE SCH ×3 (06:00→21:30)
[2016-04-05] MEDS: SODIUM CHLORIDE 0.9% FLUSH 5 ML FLUSH IVF SCH ×4 (09:00→21:14)
[2016-04-05] MEDS: NYSTATIN 100,000 U/GM PWD 15 GM BTL TOPICAL SCH ×2 (09:00→21:00)
[2016-04-05] MEDS: LANSOPRAZOLE SOLUTAB 30 MG TAB NG SCH (09:35)
[2016-04-05] MEDS: DOCUSATE SODIUM 50 MG/SENNA 8.6 MG TAB G-TUBE SCH ×2 (09:35→21:14)
[2016-04-05] MEDS: levETIRAcetam 500 MG/5 ML UDC TUBE SCH ×2 (09:35→21:14)
[2016-04-05] MEDS: METHADONE HCL 10 MG/10 ML ORAL SOLUTION G-TUBE SCH ×2 (09:40→21:44)
[2016-04-05] MEDS: ENOXAPARIN SODIUM 40 MG/0.4 ML SYRINGE SQ SCH (11:30)
--- NOTE | 2016-04-05 13:09 | HHI.PR ---
Subjective Remarks Patient seen and evaluated in follow-up for the right brain injury. Better today with receptive speech but still with some expressive aphasia. Patient cannot recall the names of his family or friends. Objective Vitals Vital Signs Date Time Temp Pulse Resp B/P Pulse Ox O2 Delivery O2 Flow Rate FiO2 04/05/16 08:00 78 04/05/16 08:00 97.7 78 17 126/78 95 04/05/16 06:00 75 04/05/16 04:00 70 04/05/16 04:00 98.1 71 18 114/64 95 04/05/16 02:00 81 04/05/16 00:00 98.0 77 18 126/66 96 04/05/16 00:00 77 04/04/16 22:00 59 04/04/16 20:00 97.7 60 21 136/68 96 04/04/16 20:00 67 04/04/16 19:00 Room Air 04/04/16 18:00 74 04/04/16 16:00 97.8 66 16 138/84 97 04/04/16 16:00 66 04/04/16 14:00 89 I/O 04/04/16 04/04/16 04/04/16 04/05/16 04/05/16 04/05/16 07:00 15:00 23:00 07:00 15:00 23:00 Intake Total 680 ml 1541 ml 700 ml Output Total 325 ml 950 ml 550 ml Balance 355 ml 591 ml 150 ml Intake Oral 100 ml IV Total 0 ml Tube Feeding 480 ml 1041 ml 500 ml Tube Irrigant 200 ml 400 ml 200 ml Output Urine Total 325 ml 950 ml 550 ml # Bowel Movements 0 0 0 Objective Remarks GENERAL: This is a well-nourished, well-developed patient, calm, status post left cranial surgery with jacinto in place CARDIOVASCULAR: Regular rate and rhythm without murmurs, gallops, or rubs. RESPIRATORY: Clear to auscultation. Breath sounds equal bilaterally. No wheezes , rales, or rhonchi. GASTROINTESTINAL: PEG tube Place, Abdomen soft, non-tender, nondistended. Normal active bowel sounds MUSCULOSKELETAL: Right extremity stiffness and edema, otherwise moves all 4 extremities NEURO: Alert & Oriented to person, significant expressive aphasia but attempts to answer questions Procedures 02/14 with right frontal bur hole and left subclavian line placement 02/15 with right occipital craniectomy with SDH evacuation 02/20 tracheostomy and PEG placement 02/25 left frontal temporoparietal decompressive craniotomy 03/06 PICC 03/29 bone flap replacement Date of Insertion: Mar 06, 2016 Line: PICC Side: Right Location: Antecubital A/P Problem List: (1) Traumatic brain injury Status: Acute Plan: Patient sustained a right occipital bone fracture and intracerebral hemorrhage of the right cerebellum with moderate mass effect on the brainstem. Patient is status post decompression per neurosurgery and is now also status post bone flap replacement. Patient continues with metabolic encephalopathy and is unable to care for himself. Continue with PT/OT/ST. (2) Acute respiratory failure Status: Acute Plan: Diet tolerated. Will follow to adjust tube feeding as needed (3) Moderate protein-calorie malnutrition Status: Acute Plan: Patient requiring tube feeds at 65 mL an hour. Follow electrolytes and blood sugar If tolerating oral intake over the next 48 hours may consider night the feeding only. Calorie counts Discharge Planning Transferred to [facility] when bed available DVT prophylaxis with Lovenox daily Stephany Cameron MD Apr 05, 2016 13:09
[2016-04-06] VITALS (7 sets, daily range): BP systolic 112–146; BP diastolic 68–86; PULSE 67–76; RESP 18–22; TEMP 96.6–99.4; O2SAT 95–97
[2016-04-06] MEDS: hydrALAZINE HCL 25 MG TAB G-TUBE SCH ×3 (05:49→21:54)
[2016-04-06] MEDS: METOPROLOL TARTRATE 50 MG TAB PEG SCH ×3 (05:50→21:54)
[2016-04-06] MEDS: FREE WATER G-TUBE SCH ×3 (05:50→21:54)
[2016-04-06 06:17] LABS: HEMATOCRIT 34.3 % (39.0-51.0); MEAN CELL VOLUME 87.8 FL (80.0-100.0); MEAN CORPUSCULAR HEMOGLOBIN 28.1 PG (27.0-34.0); PLATELET COUNT 361 TH/MM3 (150-450); REVIEW FLAG FINAL
[2016-04-06 06:46] LABS: BICARBONATE 31.1 MEQ/L (21.0-32.0); POTASSIUM 3.9 MEQ/L (3.5-5.1)
[2016-04-06] MEDS: levETIRAcetam 500 MG/5 ML UDC TUBE SCH ×2 (08:45→21:53)
[2016-04-06] MEDS: METHADONE HCL 10 MG/10 ML ORAL SOLUTION G-TUBE SCH ×2 (08:45→21:51)
[2016-04-06] MEDS: NYSTATIN 100,000 U/GM PWD 15 GM BTL TOPICAL SCH ×2 (08:45→21:00)
[2016-04-06] MEDS: LANSOPRAZOLE SOLUTAB 30 MG TAB NG SCH (08:45)
[2016-04-06] MEDS: DOCUSATE SODIUM 50 MG/SENNA 8.6 MG TAB G-TUBE SCH ×2 (08:46→21:00)
[2016-04-06] MEDS: SODIUM CHLORIDE 0.9% FLUSH 5 ML FLUSH IVF SCH ×4 (08:47→21:53)
[2016-04-06] MEDS: ENOXAPARIN SODIUM 40 MG/0.4 ML SYRINGE SQ SCH (12:53)
--- NOTE | 2016-04-06 13:09 | HHI.PR ---
Subjective Remarks Patient seen and evaluated in follow-up for traumatic brain injury. Blood pressure appears improved. Patient still with significant aphasia. Care plan discussed with Yair OZUNA Objective Vitals Vital Signs Date Time Temp Pulse Resp B/P Pulse Ox O2 Delivery O2 Flow Rate FiO2 04/06/16 08:00 97.5 67 22 131/78 97 04/06/16 07:30 68 04/06/16 05:22 96.6 76 20 128/69 95 04/06/16 00:11 99.4 71 22 121/68 96 04/05/16 21:00 98.5 92 20 129/74 94 04/05/16 20:00 86 04/05/16 16:39 98.2 85 15 158/81 96 I/O 04/05/16 04/05/16 04/05/16 04/06/16 04/06/16 04/06/16 07:00 15:00 23:00 07:00 15:00 23:00 Intake Total 700 ml 695 ml 931 ml Output Total 550 ml 725 ml 300 ml 750 ml Balance 150 ml -30 ml -300 ml 181 ml Intake Oral 50 ml Tube Feeding 500 ml 295 ml 931 ml Tube Irrigant 200 ml 150 ml Other 200 ml Output Urine Total 550 ml 725 ml 300 ml 750 ml # Bowel Movements 0 0 0 0 Result Diagram: 04/06/16 0556 04/06/16 05 Objective Remarks GENERAL: This is a well-nourished, well-developed patient, calm, status post left cranial surgery with jacinto in place CARDIOVASCULAR: Regular rate and rhythm without murmurs, gallops, or rubs. RESPIRATORY: Clear to auscultation. Breath sounds equal bilaterally. No wheezes , rales, or rhonchi. GASTROINTESTINAL: PEG tube Place, Abdomen soft, non-tender, nondistended. Normal active bowel sounds MUSCULOSKELETAL: Right extremity stiffness and edema, otherwise moves all 4 extremities NEURO: Alert & Oriented to person, significant expressive aphasia but attempts to answer questions Procedures 02/14 with right frontal bur hole and left subclavian line placement 02/15 with right occipital craniectomy with SDH evacuation 02/20 tracheostomy and PEG placement 02/25 left frontal temporoparietal decompressive craniotomy 03/06 PICC 03/29 bone flap replacement Date of Insertion: Mar 06, 2016 Line: PICC Side: Right Location: Antecubital A/P Problem List: (1) Traumatic brain injury Status: Acute Plan: Patient sustained a right occipital bone fracture and intracerebral hemorrhage of the right cerebellum with moderate mass effect on the brainstem. Patient is status post decompression per neurosurgery and is now also status post bone flap replacement. Patient continues with metabolic encephalopathy and is unable to care for himself. Continue with PT/OT/ST. (2) Moderate protein-calorie malnutrition Status: Acute Plan: Patient requiring tube feeds at 65 mL an hour. Follow electrolytes and blood sugar Patient tolerating oral intake with assistance. Minimal calories at this point Calorie counts Discharge Planning DVT prophylaxis with Lovenox daily Stephany Cameron MD Apr 06, 2016 13:09
[2016-04-07] VITALS: BP 110/68; PULSE 73; RESP 18; TEMP 97; O2SAT 97
[2016-04-07 04:00] VITALS: BP 123/74; PULSE 73; RESP 18; TEMP 97.5; O2SAT 98
[2016-04-07] MEDS: FREE WATER G-TUBE SCH ×3 (06:00→22:00)
[2016-04-07] MEDS: METOPROLOL TARTRATE 50 MG TAB PEG SCH ×3 (06:27→22:00)
[2016-04-07] MEDS: hydrALAZINE HCL 25 MG TAB G-TUBE SCH ×3 (06:27→22:29)
[2016-04-07 08:00] VITALS: BP 133/76; PULSE 67; PULSE 84; RESP 18; TEMP 97.9; O2SAT 96
[2016-04-07] MEDS: SODIUM CHLORIDE 0.9% FLUSH 5 ML FLUSH IVF SCH ×4 (09:00→22:30)
[2016-04-07] MEDS: DOCUSATE SODIUM 50 MG/SENNA 8.6 MG TAB G-TUBE SCH ×2 (09:25→22:29)
[2016-04-07] MEDS: LANSOPRAZOLE SOLUTAB 30 MG TAB NG SCH (09:25)
[2016-04-07] MEDS: levETIRAcetam 500 MG/5 ML UDC TUBE SCH ×2 (09:27→22:29)
[2016-04-07] MEDS: METHADONE HCL 10 MG/10 ML ORAL SOLUTION G-TUBE SCH ×2 (09:28→22:28)
[2016-04-07] MEDS: NYSTATIN 100,000 U/GM PWD 15 GM BTL TOPICAL SCH ×2 (09:48→21:00)
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
[2016-04-07 12:00] VITALS: BP 126/75; PULSE 66; RESP 18; TEMP 97.5; O2SAT 95
[2016-04-07] MEDS: ENOXAPARIN SODIUM 40 MG/0.4 ML SYRINGE SQ SCH (14:39)
[2016-04-07 16:00] VITALS: BP 134/77; PULSE 70; RESP 18; TEMP 96.4; O2SAT 98
[2016-04-07 20:00] VITALS: BP 133/72; PULSE 76; RESP 18; TEMP 97.2; O2SAT 95
[2016-04-08 00:18] VITALS: BP 132/72; PULSE 72; RESP 18; TEMP 97.3; O2SAT 96
[2016-04-08 04:00] VITALS: BP 128/77; PULSE 66; RESP 18; TEMP 97.5; O2SAT 95
[2016-04-08] MEDS: FREE WATER G-TUBE SCH ×3 (06:30→20:57)
[2016-04-08] MEDS: METOPROLOL TARTRATE 50 MG TAB PEG SCH ×3 (06:42→20:57)
[2016-04-08] MEDS: hydrALAZINE HCL 25 MG TAB G-TUBE SCH ×3 (06:43→20:57)
[2016-04-08 08:00] VITALS: BP 133/69; PULSE 61; RESP 18; TEMP 96.4; O2SAT 96
--- NOTE | 2016-04-08 08:56 | HHI.PR ---
Subjective Remarks eyes open, not interactive- ff some commands Objective Vitals Vital Signs Date Time Temp Pulse Resp B/P Pulse Ox O2 Delivery O2 Flow Rate FiO2 04/08/16 04:00 97.5 66 18 128/77 95 04/08/16 00:18 97.3 72 18 132/72 96 04/07/16 20:00 97.2 76 18 133/72 95 04/07/16 16:00 96.4 70 18 134/77 98 04/07/16 12:00 97.5 66 18 126/75 95 04/07/16 12:00 66 I/O 04/07/16 04/07/16 04/07/16 04/08/16 04/08/16 04/08/16 07:00 15:00 23:00 07:00 15:00 23:00 Intake Total 240 ml 772 ml 1323 ml Output Total 1000 ml Balance 240 ml -228 ml 1323 ml Intake Oral 240 ml Tube Feeding 472 ml 923 ml Other 300 ml 400 ml Output Urine Total 1000 ml # Voids 3 3 # Bowel Movements 0 Result Diagram: 04/06/16 0556 04/06/16 0556 Imaging Last Impressions Chest X-Ray 03/27/16 0000 Signed Impressions: Service Date/Time: Sunday, March 27, 2016 03:46 - CONCLUSION: No significant change mild parenchymal opacities of the left lung. Duy Skelton MD Liver Ultrasound 03/18/16 0000 Signed Impressions: Service Date/Time: Friday, March 18, 2016 17:01 - CONCLUSION: Ultrasound appearance of the liver and other right upper quadrant structures is within normal limits. Duy Skelton MD Head CT 03/09/16 0600 Signed Impressions: Service Date/Time: Wednesday, March 09, 2016 04:21 - CONCLUSION: 1. Mild improvement of the cerebral edema in the left cerebral hemisphere. 2. Otherwise , no other new or significant changes. Alli Jj MD Head CTA 02/16/16 0000 Signed Impressions: Service Date/Time: Tuesday, February 16, 2016 04:31 - CONCLUSION: I do not see an etiology for the patient's cerebellar hemorrhage on the right. Small supratentorial vessels in a 65-year-old. Etiology of this finding is not apparent. Trace subdural blood and subarachnoid blood persist over both convexities. Earl Gaitan MD FACR Cervical Spine CT 02/15/16 0445 Signed Impressions: Service Date/Time: January 04:57 - CONCLUSION: 1. Slight neural foramina compromise bilateral C4-5 and C5-6 in addition to bilateral lateral recess compromise at these levels and no significant thecal sac stenosis. 2. There is also slight neural foramina compromise right C3-C4. 3. Nonspecific lucencies in the spine may be osteoporotic changes, however myeloma is difficult to exclude. Ariadne Feng MD Objective Remarks head- jacinto in place, incisions dry awake and alert lungs no rales or wheezes regular rhythm abdomen- soft, good bowel sounds, PEG in place asher in place extremities no edema Procedures 02/14 with right frontal bur hole and left subclavian line placement 02/15 with right occipital craniectomy with SDH evacuation 02/20 tracheostomy and PEG placement 02/25 left frontal temporoparietal decompressive craniotomy 03/06 PICC 03/29 bone flap replacement Urinary Catheter: Yes Date of Insertion: Mar 06, 2016 Line: PICC Side: Right Location: Antecubital A/P Problem List: (1) Traumatic brain injury Status: Acute (2) Moderate protein-calorie malnutrition Status: Acute Assessment and Plan 65 years old male S/P TBI - PT daily - neurosurgery ff - speech therapy ff- for swallowing and cognitive therapy - needs to be motivated Protein Calorie malnutrition - Dietitian ff - continue on TF and monitor po intake- calorie count in progress Lovenox for DVT prophylaxis CM for DC planning Abdullahi Cerda MD Apr 08, 2016 08:56
[2016-04-08] MEDS: SODIUM CHLORIDE 0.9% FLUSH 5 ML FLUSH IVF SCH ×4 (09:00→20:52)
[2016-04-08] MEDS: NYSTATIN 100,000 U/GM PWD 15 GM BTL TOPICAL SCH ×2 (09:00→21:04)
[2016-04-08] MEDS: levETIRAcetam 500 MG/5 ML UDC TUBE SCH ×2 (09:16→20:51)
[2016-04-08] MEDS: LANSOPRAZOLE SOLUTAB 30 MG TAB NG SCH (09:16)
[2016-04-08] MEDS: METHADONE HCL 10 MG/10 ML ORAL SOLUTION G-TUBE SCH ×2 (09:16→20:58)
[2016-04-08] MEDS: DOCUSATE SODIUM 50 MG/SENNA 8.6 MG TAB G-TUBE SCH ×2 (09:17→20:51)
[2016-04-08] MEDS: ENOXAPARIN SODIUM 40 MG/0.4 ML SYRINGE SQ SCH (10:55)
[2016-04-08 12:00] VITALS: BP 124/72; PULSE 63; RESP 18; TEMP 96.1; O2SAT 97
[2016-04-08 16:00] VITALS: BP 122/75; PULSE 64; RESP 20; TEMP 96; O2SAT 96
[2016-04-08 20:00] VITALS: BP 128/74; PULSE 75; RESP 20; TEMP 98; O2SAT 96
[2016-04-09] VITALS: BP 132/77; PULSE 76; RESP 20; TEMP 97.2; O2SAT 96
[2016-04-09 04:00] VITALS: BP 126/71; PULSE 74; RESP 20; TEMP 98.4; O2SAT 96
[2016-04-09] MEDS: FREE WATER G-TUBE SCH ×3 (05:30→20:35)
[2016-04-09] MEDS: hydrALAZINE HCL 25 MG TAB G-TUBE SCH ×3 (05:30→20:35)
[2016-04-09] MEDS: METOPROLOL TARTRATE 50 MG TAB PEG SCH ×3 (05:30→20:35)
[2016-04-09 08:18] VITALS: BP 117/74; PULSE 64; RESP 14; TEMP 97.8; O2SAT 95
[2016-04-09] MEDS: LANSOPRAZOLE SOLUTAB 30 MG TAB NG SCH (09:00)
[2016-04-09] MEDS: SODIUM CHLORIDE 0.9% FLUSH 5 ML FLUSH IVF SCH ×4 (09:00→20:33)
[2016-04-09] MEDS: METHADONE HCL 10 MG/10 ML ORAL SOLUTION G-TUBE SCH ×2 (09:00→20:33)
[2016-04-09] MEDS: DOCUSATE SODIUM 50 MG/SENNA 8.6 MG TAB G-TUBE SCH ×2 (09:00→20:30)
[2016-04-09] MEDS: NYSTATIN 100,000 U/GM PWD 15 GM BTL TOPICAL SCH ×2 (09:00→20:33)
[2016-04-09] MEDS: levETIRAcetam 500 MG/5 ML UDC TUBE SCH ×2 (09:01→20:30)
[2016-04-09] MEDS: ENOXAPARIN SODIUM 40 MG/0.4 ML SYRINGE SQ SCH (11:42)
[2016-04-09 12:32] VITALS: BP 134/77; PULSE 73; RESP 16; TEMP 96.4; O2SAT 96
[2016-04-09] MEDS: IBUPROFEN SUSP 100 MG/5 ML UDC PO PRN (13:45)
--- NOTE | 2016-04-09 14:08 | HHI.PR ---
Subjective Remarks po intake improving no complains Objective Vitals Vital Signs Date Time Temp Pulse Resp B/P Pulse Ox O2 Delivery O2 Flow Rate FiO2 04/09/16 12:32 96.4 73 16 134/77 96 04/09/16 08:18 97.8 64 14 117/74 95 04/09/16 04:00 98.4 74 20 126/71 96 04/09/16 00:00 97.2 76 20 132/77 96 04/08/16 20:00 98.0 75 20 128/74 96 04/08/16 16:00 96.0 64 20 122/75 96 I/O 04/08/16 04/08/16 04/08/16 04/09/16 04/09/16 04/09/16 07:00 15:00 23:00 07:00 15:00 23:00 Intake Total 1323 ml 475 ml 777 ml 497 ml Output Total 1300 ml 350 ml 350 ml Balance 1323 ml -825 ml 427 ml 147 ml Intake Oral 240 ml Tube Feeding 923 ml 235 ml 577 ml 497 ml Other 400 ml 200 ml Output Urine Total 1300 ml 350 ml 350 ml # Voids 3 Result Diagram: 04/06/16 0556 04/06/16 0556 Imaging Last Impressions Chest X-Ray 03/27/16 0000 Signed Impressions: Service Date/Time: Sunday, March 27, 2016 03:46 - CONCLUSION: No significant change mild parenchymal opacities of the left lung. Duy Skelton MD Liver Ultrasound 03/18/16 0000 Signed Impressions: Service Date/Time: Friday, March 18, 2016 17:01 - CONCLUSION: Ultrasound appearance of the liver and other right upper quadrant structures is within normal limits. Duy Skelton MD Head CT 03/09/16 0600 Signed Impressions: Service Date/Time: Wednesday, March 09, 2016 04:21 - CONCLUSION: 1. Mild improvement of the cerebral edema in the left cerebral hemisphere. 2. Otherwise , no other new or significant changes. Alli Jj MD Head CTA 02/16/16 0000 Signed Impressions: Service Date/Time: Tuesday, February 16, 2016 04:31 - CONCLUSION: I do not see an etiology for the patient's cerebellar hemorrhage on the right. Small supratentorial vessels in a 65-year-old. Etiology of this finding is not apparent. Trace subdural blood and subarachnoid blood persist over both convexities. Earl Gaitan MD FACR Cervical Spine CT 02/15/16 0445 Signed Impressions: Service Date/Time: January 04:57 - CONCLUSION: 1. Slight neural foramina compromise bilateral C4-5 and C5-6 in addition to bilateral lateral recess compromise at these levels and no significant thecal sac stenosis. 2. There is also slight neural foramina compromise right C3-C4. 3. Nonspecific lucencies in the spine may be osteoporotic changes, however myeloma is difficult to exclude. Ariadne Feng MD Objective Remarks head- jacinto in place, incisions dry awake and alert lungs no rales or wheezes regular rhythm abdomen- soft, good bowel sounds, PEG in place asher in place extremities no edema Procedures 02/14 with right frontal bur hole and left subclavian line placement 02/15 with right occipital craniectomy with SDH evacuation 02/20 tracheostomy and PEG placement 02/25 left frontal temporoparietal decompressive craniotomy 03/06 PICC 03/29 bone flap replacement Urinary Catheter: Yes Date of Insertion: Mar 06, 2016 Line: PICC Side: Right Location: Antecubital A/P Problem List: (1) Traumatic brain injury Status: Acute (2) Moderate protein-calorie malnutrition Status: Acute Assessment and Plan 65 years old male S/P TBI - PT daily - neurosurgery ff - speech therapy ff- for swallowing and cognitive therapy - needs to be motivated Protein Calorie malnutrition - Dietitian ff - continue on TF and monitor po intake- calorie count in progress HTN - BB Lovenox for DVT prophylaxis CM for DC planning Abdullahi Cerda MD Apr 09, 2016 14:08
[2016-04-09 17:01] VITALS: BP 133/80; PULSE 70; RESP 20; TEMP 97.2; O2SAT 97
[2016-04-09 20:30] VITALS: BP 138/76; PULSE 71; RESP 17; TEMP 97.1; O2SAT 96
[2016-04-10 00:45] VITALS: BP 135/68; PULSE 80; RESP 18; TEMP 97; O2SAT 97
[2016-04-10 05:00] VITALS: BP 128/72; PULSE 77; RESP 18; TEMP 97; O2SAT 96
[2016-04-10] MEDS: METOPROLOL TARTRATE 50 MG TAB PEG SCH ×3 (05:51→20:51)
[2016-04-10] MEDS: FREE WATER G-TUBE SCH ×3 (05:51→22:00)
[2016-04-10] MEDS: hydrALAZINE HCL 25 MG TAB G-TUBE SCH ×3 (05:51→20:51)
[2016-04-10 08:00] VITALS: BP 90/60; PULSE 96; RESP 18; TEMP 97.4; O2SAT 100
[2016-04-10] MEDS: levETIRAcetam 500 MG/5 ML UDC TUBE SCH ×2 (08:59→20:51)
[2016-04-10] MEDS: LANSOPRAZOLE SOLUTAB 30 MG TAB NG SCH (08:59)
[2016-04-10] MEDS: METHADONE HCL 10 MG/10 ML ORAL SOLUTION G-TUBE SCH ×2 (08:59→20:50)
[2016-04-10] MEDS: DOCUSATE SODIUM 50 MG/SENNA 8.6 MG TAB G-TUBE SCH ×2 (08:59→20:50)
[2016-04-10] MEDS: SODIUM CHLORIDE 0.9% FLUSH 5 ML FLUSH IVF SCH ×4 (09:00→20:52)
[2016-04-10] MEDS: NYSTATIN 100,000 U/GM PWD 15 GM BTL TOPICAL SCH ×2 (09:01→20:52)
[2016-04-10 12:00] VITALS: BP 127/74; PULSE 72; RESP 18; TEMP 97.8; O2SAT 96
[2016-04-10] MEDS: ENOXAPARIN SODIUM 40 MG/0.4 ML SYRINGE SQ SCH (12:59)
[2016-04-10] MEDS: IBUPROFEN SUSP 100 MG/5 ML UDC PO PRN (13:01)
--- NOTE | 2016-04-10 15:19 | HHI.PR ---
Subjective Remarks calorie count just now completed states po intake continues to improve Objective Vitals Vital Signs Date Time Temp Pulse Resp B/P Pulse Ox O2 Delivery O2 Flow Rate FiO2 04/10/16 05:00 97.0 77 18 128/72 96 04/10/16 00:45 97.0 80 18 135/68 97 04/09/16 20:30 97.1 71 17 138/76 96 04/09/16 17:01 97.2 70 20 133/80 97 I/O 04/09/16 04/09/16 04/09/16 04/10/16 04/10/16 04/10/16 07:00 15:00 23:00 07:00 15:00 23:00 Intake Total 497 ml 500 ml 2148 ml 668 ml Output Total 350 ml 1100 ml 1000 ml Balance 147 ml -600 ml 1148 ml 668 ml Intake Oral 500 ml 550 ml Tube Feeding 497 ml 1398 ml 468 ml Other 200 ml 200 ml Output Urine Total 350 ml 1100 ml 1000 ml # Bowel Movements 0 0 Result Diagram: 04/06/16 0556 04/06/16 0556 Imaging Last Impressions Chest X-Ray 03/27/16 0000 Signed Impressions: Service Date/Time: Sunday, March 27, 2016 03:46 - CONCLUSION: No significant change mild parenchymal opacities of the left lung. Duy Skelton MD Liver Ultrasound 03/18/16 0000 Signed Impressions: Service Date/Time: Friday, March 18, 2016 17:01 - CONCLUSION: Ultrasound appearance of the liver and other right upper quadrant structures is within normal limits. Duy Skelton MD Head CT 03/09/16 0600 Signed Impressions: Service Date/Time: Wednesday, March 09, 2016 04:21 - CONCLUSION: 1. Mild improvement of the cerebral edema in the left cerebral hemisphere. 2. Otherwise , no other new or significant changes. Alli Jj MD Head CTA 02/16/16 0000 Signed Impressions: Service Date/Time: Tuesday, February 16, 2016 04:31 - CONCLUSION: I do not see an etiology for the patient's cerebellar hemorrhage on the right. Small supratentorial vessels in a 65-year-old. Etiology of this finding is not apparent. Trace subdural blood and subarachnoid blood persist over both convexities. Earl Gaitan MD FACR Cervical Spine CT 02/15/16 0445 Signed Impressions: Service Date/Time: January 04:57 - CONCLUSION: 1. Slight neural foramina compromise bilateral C4-5 and C5-6 in addition to bilateral lateral recess compromise at these levels and no significant thecal sac stenosis. 2. There is also slight neural foramina compromise right C3-C4. 3. Nonspecific lucencies in the spine may be osteoporotic changes, however myeloma is difficult to exclude. Ariadne Feng MD Objective Remarks head- , incisions dry awake and alert lungs no rales or wheezes regular rhythm abdomen- soft, good bowel sounds, PEG in place asher in place extremities no edema Procedures 02/14 with right frontal bur hole and left subclavian line placement 02/15 with right occipital craniectomy with SDH evacuation 02/20 tracheostomy and PEG placement 02/25 left frontal temporoparietal decompressive craniotomy 03/06 PICC 03/29 bone flap replacement Date of Insertion: Mar 06, 2016 Line: PICC Side: Right Location: Antecubital A/P Problem List: (1) Traumatic brain injury Status: Acute (2) Moderate protein-calorie malnutrition Status: Acute Assessment and Plan 65 years old male S/P TBI - PT daily - neurosurgery ff - speech therapy ff- for swallowing and cognitive therapy - needs to be motivated- po continues to improve steadily Protein Calorie malnutrition - Dietitian ff - continue on TF and monitor po intake- calorie count just now completed - consider decrease to night time TF - will go over calorie count - encourage po intake HTN - BB Lovenox for DVT prophylaxis CM for DC planning DC PICC line DC asher- check voiding Abdullahi Cerda MD Apr 10, 2016 15:19
[2016-04-10 16:00] VITALS: BP 129/77; PULSE 64; RESP 18; TEMP 96; O2SAT 98
[2016-04-10 20:13] VITALS: BP 120/70; PULSE 66; RESP 20; TEMP 97.4; O2SAT 96
[2016-04-11 00:51] VITALS: BP 123/73; PULSE 65; RESP 18; TEMP 97.1; O2SAT 96
[2016-04-11 04:12] VITALS: BP 133/74; PULSE 66; RESP 18; TEMP 97.4; O2SAT 98
[2016-04-11] MEDS: FREE WATER G-TUBE SCH ×3 (06:00→21:53)
[2016-04-11] MEDS: METOPROLOL TARTRATE 50 MG TAB PEG SCH ×3 (06:46→21:51)
[2016-04-11] MEDS: hydrALAZINE HCL 25 MG TAB G-TUBE SCH ×3 (06:46→21:51)
[2016-04-11 08:00] VITALS: BP 136/80; PULSE 67; RESP 18; TEMP 96.2; O2SAT 96
[2016-04-11] MEDS: METHADONE HCL 10 MG/10 ML ORAL SOLUTION G-TUBE SCH ×2 (08:54→21:50)
[2016-04-11] MEDS: levETIRAcetam 500 MG/5 ML UDC TUBE SCH ×2 (08:57→21:51)
[2016-04-11] MEDS: DOCUSATE SODIUM 50 MG/SENNA 8.6 MG TAB G-TUBE SCH ×2 (08:57→21:51)
[2016-04-11] MEDS: LANSOPRAZOLE SOLUTAB 30 MG TAB NG SCH (08:57)
[2016-04-11] MEDS: NYSTATIN 100,000 U/GM PWD 15 GM BTL TOPICAL SCH ×2 (08:57→21:53)
[2016-04-11] MEDS: SODIUM CHLORIDE 0.9% FLUSH 5 ML FLUSH IVF SCH ×4 (09:00→21:00)
--- NOTE | 2016-04-11 10:01 | HHI.PR ---
Subjective Remarks no complains patient voiding spontaneously po intake - reviewed dietitian notes- caloire count - taking only 15 %- will continue TF - glucerna Objective Vitals Vital Signs Date Time Temp Pulse Resp B/P Pulse Ox O2 Delivery O2 Flow Rate FiO2 04/11/16 04:12 97.4 66 18 133/74 98 04/11/16 00:51 97.1 65 18 123/73 96 04/10/16 20:13 97.4 66 20 120/70 96 04/10/16 16:00 96.0 64 18 129/77 98 04/10/16 12:00 97.8 72 18 127/74 96 I/O 04/10/16 04/10/16 04/10/16 04/11/16 04/11/16 04/11/16 07:00 15:00 23:00 07:00 15:00 23:00 Intake Total 2148 ml 1148 ml 1150 ml 520 ml Output Total 1000 ml 2000 ml 800 ml 600 ml Balance 1148 ml -852 ml 350 ml -80 ml Intake Oral 550 ml 480 ml 1150 ml 520 ml Tube Feeding 1398 ml 468 ml Other 200 ml 200 ml Output Urine Total 1000 ml 2000 ml 800 ml 600 ml # Voids 3 # Bowel Movements 0 0 0 Imaging Last Impressions Chest X-Ray 03/27/16 0000 Signed Impressions: Service Date/Time: Sunday, March 27, 2016 03:46 - CONCLUSION: No significant change mild parenchymal opacities of the left lung. Duy Skelton MD Liver Ultrasound 03/18/16 0000 Signed Impressions: Service Date/Time: Friday, March 18, 2016 17:01 - CONCLUSION: Ultrasound appearance of the liver and other right upper quadrant structures is within normal limits. Duy Skelton MD Head CT 03/09/16 0600 Signed Impressions: Service Date/Time: Wednesday, March 09, 2016 04:21 - CONCLUSION: 1. Mild improvement of the cerebral edema in the left cerebral hemisphere. 2. Otherwise , no other new or significant changes. Alli Jj MD Head CTA 02/16/16 0000 Signed Impressions: Service Date/Time: Tuesday, February 16, 2016 04:31 - CONCLUSION: I do not see an etiology for the patient's cerebellar hemorrhage on the right. Small supratentorial vessels in a 65-year-old. Etiology of this finding is not apparent. Trace subdural blood and subarachnoid blood persist over both convexities. Earl Gaitan MD FACR Cervical Spine CT 02/15/16 0445 Signed Impressions: Service Date/Time: January 04:57 - CONCLUSION: 1. Slight neural foramina compromise bilateral C4-5 and C5-6 in addition to bilateral lateral recess compromise at these levels and no significant thecal sac stenosis. 2. There is also slight neural foramina compromise right C3-C4. 3. Nonspecific lucencies in the spine may be osteoporotic changes, however myeloma is difficult to exclude. Ariadne Feng MD Objective Remarks head- , incisions dry awake and alert lungs no rales or wheezes regular rhythm abdomen- soft, good bowel sounds, PEG in place extremities no edema Procedures 02/14 with right frontal bur hole and left subclavian line placement 02/15 with right occipital craniectomy with SDH evacuation 02/20 tracheostomy and PEG placement 02/25 left frontal temporoparietal decompressive craniotomy 03/06 PICC 03/29 bone flap replacement Assessment to: Remove Date of Removal: Apr 10, 2016 Date of Insertion: Mar 06, 2016 Line: PICC Side: Right Location: Antecubital A/P Problem List: (1) Traumatic brain injury Status: Acute (2) Moderate protein-calorie malnutrition Status: Acute Assessment and Plan 65 years old male S/P TBI - PT daily - on Keppra bid - neurosurgery ff - speech therapy ff- for swallowing and cognitive therapy - needs to be motivated- Protein Calorie malnutrition - Dietitian ff - only 15 % matt continue TF- with Glucerna - nutritinist will do a repeat calorie count after 1 week - encourage po intake HTN - BB Lovenox for DVT prophylaxis CM for DC planning PICC and asher- DC Abdullahi Cerda MD Apr 11, 2016 10:01
[2016-04-11 12:00] VITALS: BP 139/75; PULSE 68; RESP 18; TEMP 96.9; O2SAT 99
[2016-04-11 14:00] VITALS: BP 157/72; PULSE 71; RESP 18; TEMP 96.6; O2SAT 97
[2016-04-11] MEDS: ENOXAPARIN SODIUM 40 MG/0.4 ML SYRINGE SQ SCH (14:38)
[2016-04-11] MEDS ORDERED: BISACODYL 10 MG SUPP RECTAL ONE (16:00)
[2016-04-11 20:35] VITALS: BP 137/81; PULSE 73; RESP 17; TEMP 97.4; O2SAT 97
[2016-04-12 00:25] VITALS: BP 124/65; PULSE 80; RESP 20; TEMP 97; O2SAT 100
[2016-04-12 04:35] VITALS: BP 119/65; PULSE 83; RESP 19; TEMP 96.1; O2SAT 97
[2016-04-12] MEDS: FREE WATER G-TUBE SCH ×3 (06:00→22:00)
[2016-04-12] MEDS: METOPROLOL TARTRATE 50 MG TAB PEG SCH ×3 (07:31→22:29)
[2016-04-12] MEDS: hydrALAZINE HCL 25 MG TAB G-TUBE SCH ×3 (07:31→22:29)
[2016-04-12 08:00] VITALS: BP 125/73; PULSE 66; RESP 18; TEMP 97.1; O2SAT 97
[2016-04-12] MEDS: SODIUM CHLORIDE 0.9% FLUSH 5 ML FLUSH IVF SCH ×4 (09:00→21:00)
[2016-04-12] MEDS: DOCUSATE SODIUM 50 MG/SENNA 8.6 MG TAB G-TUBE SCH ×2 (09:14→22:29)
[2016-04-12] MEDS: LANSOPRAZOLE SOLUTAB 30 MG TAB NG SCH (09:14)
[2016-04-12] MEDS: METHADONE HCL 10 MG/10 ML ORAL SOLUTION G-TUBE SCH ×2 (09:15→22:33)
[2016-04-12] MEDS: levETIRAcetam 500 MG/5 ML UDC TUBE SCH ×2 (09:15→22:30)
[2016-04-12] MEDS: NYSTATIN 100,000 U/GM PWD 15 GM BTL TOPICAL SCH ×2 (09:16→22:39)
--- NOTE | 2016-04-12 10:11 | HHI.PR ---
Subjective Remarks asher removed 04/10- trial voiding failed- reinserted 04/12 not enough po intake only 15%- on calorie ct- TF restarted though bi abdominal pain, no BM Objective Vitals Vital Signs Date Time Temp Pulse Resp B/P Pulse Ox O2 Delivery O2 Flow Rate FiO2 04/12/16 08:00 97.1 66 18 125/73 97 04/12/16 04:35 96.1 83 19 119/65 97 04/12/16 00:25 97.0 80 20 124/65 100 04/11/16 22:57 18 04/11/16 20:35 97.4 73 17 137/81 97 04/11/16 14:00 96.6 71 18 157/72 97 04/11/16 12:00 96.9 68 18 139/75 99 I/O 04/11/16 04/11/16 04/11/16 04/12/16 04/12/16 04/12/16 07:00 15:00 23:00 07:00 15:00 23:00 Intake Total 520 ml 480 ml 680 ml 580 ml Output Total 600 ml 500 ml 350 ml 650 ml Balance -80 ml -20 ml 330 ml -70 ml Intake Oral 520 ml 480 ml 680 ml 580 ml Output Urine Total 600 ml 500 ml 350 ml 650 ml Bladder Scan Volume Amount 545 ml # Voids 0 0 # Bowel Movements 0 1 0 1 Objective Remarks head- - staple, incisions dry awake and alert lungs no rales or wheezes regular rhythm abdomen- soft, good bowel sounds, PEG in place asher in placed -(place 04/12) extremities no edema Procedures 02/14 with right frontal bur hole and left subclavian line placement 02/15 with right occipital craniectomy with SDH evacuation 02/20 tracheostomy and PEG placement 02/25 left frontal temporoparietal decompressive craniotomy 03/06 PICC 03/29 bone flap replacement Date of Removal: Apr 10, 2016 Date of Insertion: Mar 06, 2016 Line: PICC Side: Right Location: Antecubital A/P Problem List: (1) Traumatic brain injury Status: Acute (2) Moderate protein-calorie malnutrition Status: Acute Assessment and Plan 65 years old male S/P TBI - PT daily - on Keppra bid - neurosurgery ff - speech therapy ff- for swallowing and cognitive therapy - needs to be motivated- Protein Calorie malnutrition - Dietitian ff 04/11- calorie ct - only 15 % matt continue TF- 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
[2016-04-12] MEDS: ENOXAPARIN SODIUM 40 MG/0.4 ML SYRINGE SQ SCH (12:23)
[2016-04-12 12:42] VITALS: BP 116/76; PULSE 75; RESP 18; TEMP 96.7; O2SAT 100
[2016-04-12 16:16] VITALS: BP 132/82; PULSE 70; RESP 18; TEMP 96.9; O2SAT 97
[2016-04-12 20:00] VITALS: BP 116/67; PULSE 74; RESP 18; TEMP 97.2; O2SAT 95
[2016-04-13] VITALS: BP 93/48; PULSE 65; RESP 18; TEMP 97.8; O2SAT 95
[2016-04-13 04:00] VITALS: BP 103/60; PULSE 70; RESP 18; TEMP 97; O2SAT 96
[2016-04-13] MEDS: hydrALAZINE HCL 25 MG TAB G-TUBE SCH ×3 (06:00→21:35)
[2016-04-13] MEDS: FREE WATER G-TUBE SCH ×3 (06:00→21:43)
[2016-04-13] MEDS: METOPROLOL TARTRATE 50 MG TAB PEG SCH ×3 (06:15→21:36)
[2016-04-13 08:26] VITALS: BP 107/66; PULSE 69; RESP 17; TEMP 97.4; O2SAT 97
[2016-04-13] MEDS: SODIUM CHLORIDE 0.9% FLUSH 5 ML FLUSH IVF SCH ×4 (09:00→21:00)
[2016-04-13] MEDS: LANSOPRAZOLE SOLUTAB 30 MG TAB NG SCH (09:16)
[2016-04-13] MEDS: DOCUSATE SODIUM 50 MG/SENNA 8.6 MG TAB G-TUBE SCH ×2 (09:16→21:36)
[2016-04-13] MEDS: METHADONE HCL 10 MG/10 ML ORAL SOLUTION G-TUBE SCH ×2 (09:17→21:37)
[2016-04-13] MEDS: levETIRAcetam 500 MG/5 ML UDC TUBE SCH ×2 (09:17→21:35)
[2016-04-13] MEDS: NYSTATIN 100,000 U/GM PWD 15 GM BTL TOPICAL SCH ×2 (09:23→21:37)
[2016-04-13] MEDS: ENOXAPARIN SODIUM 40 MG/0.4 ML SYRINGE SQ SCH (12:09)
[2016-04-13 12:19] VITALS: BP 125/75; PULSE 75; RESP 16; TEMP 97.9; O2SAT 97
--- NOTE | 2016-04-13 13:37 | HHI.PR ---
Subjective Remarks no complains pain controlled Objective Vitals Vital Signs Date Time Temp Pulse Resp B/P Pulse Ox O2 Delivery O2 Flow Rate FiO2 04/13/16 12:19 97.9 75 16 125/75 97 04/13/16 08:26 97.4 69 17 107/66 97 04/13/16 04:00 97.0 70 18 103/60 96 04/13/16 00:00 97.8 65 18 93/48 95 04/12/16 20:00 97.2 74 18 116/67 95 04/12/16 16:16 96.9 70 18 132/82 97 I/O 04/12/16 04/12/16 04/12/16 04/13/16 04/13/16 04/13/16 07:00 15:00 23:00 07:00 15:00 23:00 Intake Total 580 ml 480 ml 1300 ml 1708 ml Output Total 650 ml 1200 ml 1600 ml Balance -70 ml -720 ml 1300 ml 108 ml Intake Oral 580 ml 480 ml 720 ml Tube Feeding 850 ml 788 ml Tube Irrigant 200 ml Other 450 ml Output Urine Total 650 ml 1200 ml 1600 ml # Voids 0 # Bowel Movements 1 1 Imaging Last Impressions Chest X-Ray 03/27/16 0000 Signed Impressions: Service Date/Time: Sunday, March 27, 2016 03:46 - CONCLUSION: No significant change mild parenchymal opacities of the left lung. Duy Skelton MD Liver Ultrasound 03/18/16 0000 Signed Impressions: Service Date/Time: Friday, March 18, 2016 17:01 - CONCLUSION: Ultrasound appearance of the liver and other right upper quadrant structures is within normal limits. Duy Skelton MD Head CT 03/09/16 0600 Signed Impressions: Service Date/Time: Wednesday, March 09, 2016 04:21 - CONCLUSION: 1. Mild improvement of the cerebral edema in the left cerebral hemisphere. 2. Otherwise , no other new or significant changes. Alli Jj MD Head CTA 02/16/16 0000 Signed Impressions: Service Date/Time: Tuesday, February 16, 2016 04:31 - CONCLUSION: I do not see an etiology for the patient's cerebellar hemorrhage on the right. Small supratentorial vessels in a 65-year-old. Etiology of this finding is not apparent. Trace subdural blood and subarachnoid blood persist over both convexities. Earl Gaitan MD FACR Cervical Spine CT 02/15/16 0445 Signed Impressions: Service Date/Time: January 04:57 - CONCLUSION: 1. Slight neural foramina compromise bilateral C4-5 and C5-6 in addition to bilateral lateral recess compromise at these levels and no significant thecal sac stenosis. 2. There is also slight neural foramina compromise right C3-C4. 3. Nonspecific lucencies in the spine may be osteoporotic changes, however myeloma is difficult to exclude. Ariadne Feng MD Objective Remarks head- - staple, incisions dry awake and alert lungs no rales or wheezes regular rhythm abdomen- soft, good bowel sounds, PEG in place asher in placed -(place 04/12) extremities no edema Procedures 02/14 with right frontal bur hole and left subclavian line placement 02/15 with right occipital craniectomy with SDH evacuation 02/20 tracheostomy and PEG placement 02/25 left frontal temporoparietal decompressive craniotomy 03/06 PICC 03/29 bone flap replacement Date of Insertion: Apr 10, 2016 Date of Insertion: Mar 06, 2016 Line: PICC Side: Right Location: Antecubital A/P Problem List: (1) Traumatic brain injury Status: Acute (2) Moderate protein-calorie malnutrition Status: Acute Assessment and Plan 65 years old male S/P TBI - PT daily - on Keppra bid - neurosurgery ff - speech therapy ff- for swallowing and cognitive therapy - needs to be motivated- Protein Calorie malnutrition - Dietitian ff 04/11- calorie ct - only 15 % matt continue TF- with Glucerna - 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
[2016-04-13 16:26] VITALS: BP 130/81; PULSE 82; RESP 16; TEMP 97.2; O2SAT 98
[2016-04-13 20:00] VITALS: BP 122/74; PULSE 79; RESP 16; TEMP 97.7; O2SAT 96
[2016-04-14 00:20] VITALS: BP 119/72; PULSE 60; RESP 16; TEMP 98.4; O2SAT 96
[2016-04-14 04:00] VITALS: BP 120/71; PULSE 73; RESP 20; TEMP 98; O2SAT 97
[2016-04-14] MEDS: hydrALAZINE HCL 25 MG TAB G-TUBE SCH ×3 (05:40→21:26)
[2016-04-14] MEDS: METOPROLOL TARTRATE 50 MG TAB PEG SCH ×3 (05:40→21:26)
[2016-04-14] MEDS: FREE WATER G-TUBE SCH ×3 (05:40→21:27)
[2016-04-14] MEDS: LANSOPRAZOLE SOLUTAB 30 MG TAB NG SCH (08:18)
[2016-04-14] MEDS: levETIRAcetam 500 MG/5 ML UDC TUBE SCH ×2 (08:18→21:26)
[2016-04-14] MEDS: DOCUSATE SODIUM 50 MG/SENNA 8.6 MG TAB G-TUBE SCH ×2 (08:18→21:26)
[2016-04-14] MEDS: METHADONE HCL 10 MG/10 ML ORAL SOLUTION G-TUBE SCH ×2 (08:20→21:26)
[2016-04-14] MEDS: NYSTATIN 100,000 U/GM PWD 15 GM BTL TOPICAL SCH ×2 (08:22→21:27)
[2016-04-14] MEDS: SODIUM CHLORIDE 0.9% FLUSH 5 ML FLUSH IVF SCH ×4 (08:22→21:00)
[2016-04-14 08:43] VITALS: BP 124/75; PULSE 60; RESP 16; TEMP 96.3; O2SAT 96
--- NOTE | 2016-04-14 11:44 | HHI.PR ---
Subjective Remarks "feels good" Objective Vitals Vital Signs Date Time Temp Pulse Resp B/P Pulse Ox O2 Delivery O2 Flow Rate FiO2 04/14/16 09:20 18 04/14/16 08:43 96.3 60 16 124/75 96 04/14/16 04:00 98.0 73 20 120/71 97 04/14/16 00:20 98.4 60 16 119/72 96 04/13/16 20:00 97.7 79 16 122/74 96 04/13/16 16:26 97.2 82 16 130/81 98 04/13/16 12:19 97.9 75 16 125/75 97 I/O 04/13/16 04/13/16 04/13/16 04/14/16 04/14/16 04/14/16 07:00 15:00 23:00 07:00 15:00 23:00 Intake Total 1708 ml 200 ml 120 ml Output Total 1600 ml 2300 ml Balance 108 ml -2100 ml 120 ml Intake Oral 720 ml 200 ml 120 ml Tube Feeding 788 ml Tube Irrigant 200 ml Output Urine Total 1600 ml 2300 ml # Voids 1 # Bowel Movements 1 1 1 Imaging Last Impressions Chest X-Ray 03/27/16 0000 Signed Impressions: Service Date/Time: Sunday, March 27, 2016 03:46 - CONCLUSION: No significant change mild parenchymal opacities of the left lung. Duy Skelton MD Liver Ultrasound 03/18/16 0000 Signed Impressions: Service Date/Time: Friday, March 18, 2016 17:01 - CONCLUSION: Ultrasound appearance of the liver and other right upper quadrant structures is within normal limits. Duy Skelton MD Head CT 03/09/16 0600 Signed Impressions: Service Date/Time: Wednesday, March 09, 2016 04:21 - CONCLUSION: 1. Mild improvement of the cerebral edema in the left cerebral hemisphere. 2. Otherwise , no other new or significant changes. Alli Jj MD Head CTA 02/16/16 0000 Signed Impressions: Service Date/Time: Tuesday, February 16, 2016 04:31 - CONCLUSION: I do not see an etiology for the patient's cerebellar hemorrhage on the right. Small supratentorial vessels in a 65-year-old. Etiology of this finding is not apparent. Trace subdural blood and subarachnoid blood persist over both convexities. Earl Gaitan MD FACR Cervical Spine CT 02/15/16 0445 Signed Impressions: Service Date/Time: January 04:57 - CONCLUSION: 1. Slight neural foramina compromise bilateral C4-5 and C5-6 in addition to bilateral lateral recess compromise at these levels and no significant thecal sac stenosis. 2. There is also slight neural foramina compromise right C3-C4. 3. Nonspecific lucencies in the spine may be osteoporotic changes, however myeloma is difficult to exclude. Ariadne Feng MD Objective Remarks head- - jacinto in place, incisions dry awake and alert lungs no rales or wheezes regular rhythm abdomen- soft, good bowel sounds, PEG in place asher in placed -(place 04/12) extremities no edema Procedures 02/14 with right frontal bur hole and left subclavian line placement 02/15 with right occipital craniectomy with SDH evacuation 02/20 tracheostomy and PEG placement 02/25 left frontal temporoparietal decompressive craniotomy 03/06 PICC 03/29 bone flap replacement Date of Insertion: Apr 10, 2016 Date of Insertion: Mar 06, 2016 Line: PICC Side: Right Location: Antecubital A/P Problem List: (1) Traumatic brain injury Status: Acute (2) Moderate protein-calorie malnutrition Status: Acute Assessment and Plan 65 years old male S/P TBI - PT daily - on Keppra bid - neurosurgery ff - speech therapy ff- for swallowing and cognitive therapy - needs to be motivated- Protein Calorie malnutrition - Dietitian ff 04/11- calorie ct - only 15 % matt continue TF- with Glucerna - 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
[2016-04-14] MEDS: ENOXAPARIN SODIUM 40 MG/0.4 ML SYRINGE SQ SCH (12:00)
[2016-04-14 12:41] VITALS: BP 140/82; PULSE 67; RESP 17; TEMP 95.3; O2SAT 97
[2016-04-14 17:16] VITALS: BP 125/78; PULSE 66; RESP 17; TEMP 96.9; O2SAT 97
[2016-04-14 20:00] VITALS: BP 128/80; PULSE 65; RESP 20; TEMP 95.6; O2SAT 96
[2016-04-15 04:00] VITALS: BP 133/83; PULSE 69; RESP 20; TEMP 96.9; O2SAT 96
[2016-04-15] MEDS: hydrALAZINE HCL 25 MG TAB G-TUBE SCH ×3 (05:59→22:16)
[2016-04-15] MEDS: METOPROLOL TARTRATE 50 MG TAB PEG SCH ×3 (06:00→22:16)
[2016-04-15] MEDS: FREE WATER G-TUBE SCH ×3 (06:00→22:00)
[2016-04-15 08:00] VITALS: BP 120/76; PULSE 71; RESP 18; TEMP 95.7; O2SAT 95
[2016-04-15] MEDS: SODIUM CHLORIDE 0.9% FLUSH 5 ML FLUSH IVF SCH ×4 (09:00→21:00)
[2016-04-15] MEDS: DOCUSATE SODIUM 50 MG/SENNA 8.6 MG TAB G-TUBE SCH ×2 (09:00→22:16)
[2016-04-15] MEDS: LANSOPRAZOLE SOLUTAB 30 MG TAB NG SCH (09:18)
[2016-04-15] MEDS: levETIRAcetam 500 MG/5 ML UDC TUBE SCH (09:20)
[2016-04-15] MEDS: NYSTATIN 100,000 U/GM PWD 15 GM BTL TOPICAL SCH ×2 (09:30→22:18)
[2016-04-15] MEDS: METHADONE HCL 10 MG/10 ML ORAL SOLUTION G-TUBE SCH ×2 (09:35→22:18)
[2016-04-15 12:00] VITALS: BP 125/73; PULSE 69; RESP 19; TEMP 97.6; O2SAT 96
--- NOTE | 2016-04-15 12:07 | HHI.PR ---
Subjective Remarks doing very well, no complains poor po intake Objective Vitals Vital Signs Date Time Temp Pulse Resp B/P Pulse Ox O2 Delivery O2 Flow Rate FiO2 04/15/16 08:00 95.7 71 18 120/76 95 04/15/16 04:00 96.9 69 20 133/83 96 04/14/16 20:00 95.6 65 20 128/80 96 04/14/16 17:16 96.9 66 17 125/78 97 04/14/16 12:41 95.3 67 17 140/82 97 I/O 04/14/16 04/14/16 04/14/16 04/15/16 04/15/16 04/15/16 07:00 15:00 23:00 07:00 15:00 23:00 Intake Total 120 ml 720 ml 360 ml 360 ml Output Total 1150 ml 650 ml 1000 ml Balance 120 ml -430 ml -290 ml -640 ml Intake Oral 120 ml 720 ml 360 ml 360 ml Output Urine Total 1150 ml 650 ml 1000 ml # Voids 1 # Bowel Movements 1 1 0 0 Imaging Last Impressions Chest X-Ray 03/27/16 0000 Signed Impressions: Service Date/Time: Sunday, March 27, 2016 03:46 - CONCLUSION: No significant change mild parenchymal opacities of the left lung. Duy Skelton MD Liver Ultrasound 03/18/16 0000 Signed Impressions: Service Date/Time: Friday, March 18, 2016 17:01 - CONCLUSION: Ultrasound appearance of the liver and other right upper quadrant structures is within normal limits. Duy Skelton MD Head CT 03/09/16 0600 Signed Impressions: Service Date/Time: Wednesday, March 09, 2016 04:21 - CONCLUSION: 1. Mild improvement of the cerebral edema in the left cerebral hemisphere. 2. Otherwise , no other new or significant changes. Alli Jj MD Head CTA 02/16/16 0000 Signed Impressions: Service Date/Time: Tuesday, February 16, 2016 04:31 - CONCLUSION: I do not see an etiology for the patient's cerebellar hemorrhage on the right. Small supratentorial vessels in a 65-year-old. Etiology of this finding is not apparent. Trace subdural blood and subarachnoid blood persist over both convexities. Earl Gaitan MD FACR Cervical Spine CT 02/15/16 0905 Signed Impressions: Service Date/Time: January 04:57 - CONCLUSION: 1. Slight neural foramina compromise bilateral C4-5 and C5-6 in addition to bilateral lateral recess compromise at these levels and no significant thecal sac stenosis. 2. There is also slight neural foramina compromise right C3-C4. 3. Nonspecific lucencies in the spine may be osteoporotic changes, however myeloma is difficult to exclude. Ariadne Feng MD Objective Remarks head- - jacinto in place, incisions dry awake and alert lungs no rales or wheezes regular rhythm abdomen- soft, good bowel sounds, PEG in place asher in placed -(place 04/12) extremities no edema Procedures 02/14 with right frontal bur hole and left subclavian line placement 02/15 with right occipital craniectomy with SDH evacuation 02/20 tracheostomy and PEG placement 02/25 left frontal temporoparietal decompressive craniotomy 03/06 PICC 03/29 bone flap replacement Date of Insertion: Apr 10, 2016 Date of Insertion: Mar 06, 2016 Line: PICC Side: Right Location: Antecubital A/P Problem List: (1) Traumatic brain injury Status: Acute (2) Moderate protein-calorie malnutrition Status: Acute Assessment and Plan 65 years old male S/P TBI - PT daily - on Keppra bid- change to po/PEG - neurosurgery ff - speech therapy ff- for swallowing and cognitive therapy - needs to be motivated- Protein Calorie malnutrition - Dietitian ff 04/11- calorie ct - only 15 % matt continue TF- with Glucerna- change to [place] - patient non diabetic hyperglycemia was due to critical illness will check blood sugars tid and hs for monitoring for now - 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
[2016-04-15] MEDS: ENOXAPARIN SODIUM 40 MG/0.4 ML SYRINGE SQ SCH (15:31)
[2016-04-15 16:00] VITALS: BP 134/71; PULSE 60; RESP 18; TEMP 97.8; O2SAT 97
[2016-04-15 20:20] VITALS: BP 139/75; PULSE 65; RESP 17; TEMP 98; O2SAT 98
[2016-04-15] MEDS: levETIRAcetam 500 MG/5 ML UDC PO SCH (22:16)
[2016-04-16] MEDS: FREE WATER G-TUBE SCH ×3 (06:00→21:41)
[2016-04-16 06:15] VITALS: BP 125/67; PULSE 65; RESP 18; TEMP 97.2; O2SAT 98
[2016-04-16] MEDS: METOPROLOL TARTRATE 50 MG TAB PEG SCH ×3 (06:32→21:40)
[2016-04-16] MEDS: hydrALAZINE HCL 25 MG TAB G-TUBE SCH ×3 (06:32→21:40)
[2016-04-16 08:09] VITALS: BP 116/68; PULSE 59; RESP 16; TEMP 95.7; O2SAT 97
[2016-04-16] MEDS: SODIUM CHLORIDE 0.9% FLUSH 5 ML FLUSH IVF SCH ×4 (09:00→21:00)
[2016-04-16] MEDS: NYSTATIN 100,000 U/GM PWD 15 GM BTL TOPICAL SCH ×3 (09:00→21:41)
[2016-04-16] MEDS: levETIRAcetam 500 MG/5 ML UDC PO SCH ×2 (09:55→21:39)
[2016-04-16] MEDS: DOCUSATE SODIUM 50 MG/SENNA 8.6 MG TAB G-TUBE SCH ×2 (09:56→21:39)
[2016-04-16] MEDS: LANSOPRAZOLE SOLUTAB 30 MG TAB NG SCH (09:56)
[2016-04-16] MEDS: METHADONE HCL 10 MG/10 ML ORAL SOLUTION G-TUBE SCH ×2 (09:57→21:40)
--- NOTE | 2016-04-16 11:34 | HHI.PR ---
Subjective Remarks comfortable, no complains of pain or shortness of breath or abdominal pain Objective Vitals Vital Signs Date Time Temp Pulse Resp B/P Pulse Ox O2 Delivery O2 Flow Rate FiO2 04/16/16 08:09 95.7 59 16 116/68 97 04/16/16 06:15 97.2 65 18 125/67 98 04/15/16 20:20 98.0 65 17 139/75 98 04/15/16 16:00 97.8 60 18 134/71 97 04/15/16 12:00 97.6 69 19 125/73 96 I/O 04/15/16 04/15/16 04/15/16 04/16/16 04/16/16 04/16/16 07:00 15:00 23:00 07:00 15:00 23:00 Intake Total 360 ml 480 ml 1072 ml 250 ml Output Total 1000 ml 950 ml 800 ml 800 ml Balance -640 ml -470 ml 272 ml -550 ml Intake Oral 360 ml 480 ml 525 ml 250 ml IV Total 547 ml Output Urine Total 1000 ml 950 ml 800 ml 800 ml # Bowel Movements 0 0 0 0 Imaging Last Impressions Chest X-Ray 03/27/16 0000 Signed Impressions: Service Date/Time: Sunday, March 27, 2016 03:46 - CONCLUSION: No significant change mild parenchymal opacities of the left lung. Duy Skelton MD Liver Ultrasound 03/18/16 0000 Signed Impressions: Service Date/Time: Friday, March 18, 2016 17:01 - CONCLUSION: Ultrasound appearance of the liver and other right upper quadrant structures is within normal limits. Duy Skelton MD Head CT 03/09/16 0600 Signed Impressions: Service Date/Time: Wednesday, March 09, 2016 04:21 - CONCLUSION: 1. Mild improvement of the cerebral edema in the left cerebral hemisphere. 2. Otherwise , no other new or significant changes. Alli Jj MD Head CTA 02/16/16 0000 Signed Impressions: Service Date/Time: Tuesday, February 16, 2016 04:31 - CONCLUSION: I do not see an etiology for the patient's cerebellar hemorrhage on the right. Small supratentorial vessels in a 65-year-old. Etiology of this finding is not apparent. Trace subdural blood and subarachnoid blood persist over both convexities. Earl Gaitan MD FACR Cervical Spine CT 02/15/16 0445 Signed Impressions: Service Date/Time: January 04:57 - CONCLUSION: 1. Slight neural foramina compromise bilateral C4-5 and C5-6 in addition to bilateral lateral recess compromise at these levels and no significant thecal sac stenosis. 2. There is also slight neural foramina compromise right C3-C4. 3. Nonspecific lucencies in the spine may be osteoporotic changes, however myeloma is difficult to exclude. Ariadne Feng MD Objective Remarks head- - incisions dry (jacinto removed 04/15) awake and alert lungs no rales or wheezes regular rhythm abdomen- soft, good bowel sounds, PEG in place asher in placed -(place 04/12) extremities no edema Procedures 02/14 with right frontal bur hole and left subclavian line placement 02/15 with right occipital craniectomy with SDH evacuation 02/20 tracheostomy and PEG placement 02/25 left frontal temporoparietal decompressive craniotomy 03/06 PICC 03/29 bone flap replacement Date of Insertion: Apr 10, 2016 Date of Insertion: Mar 06, 2016 Line: PICC Side: Right Location: Antecubital A/P Problem List: (1) Traumatic brain injury Status: Acute (2) Moderate protein-calorie malnutrition Status: Acute Assessment and Plan 65 years old male S/P TBI - PT daily - on Keppra bid- - neurosurgery ff - speech therapy ff- for swallowing and cognitive therapy - needs to be motivated- Protein Calorie malnutrition - Dietitian ff 04/11- calorie ct - only 15 % = continue TF on Jevity (on glucerna)- patient non diabetic hyperglycemia was due to critical illness will check blood sugars tid and hs for monitoring for now - 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
[2016-04-16 12:04] VITALS: BP 133/76; PULSE 67; RESP 16; TEMP 96; O2SAT 98
[2016-04-16] MEDS: ENOXAPARIN SODIUM 40 MG/0.4 ML SYRINGE SQ SCH (13:04)
[2016-04-16 16:08] VITALS: BP 154/78; PULSE 70; RESP 18; TEMP 95.3; O2SAT 96
[2016-04-16 21:15] VITALS: BP 138/80; PULSE 68; RESP 17; TEMP 97.4; O2SAT 98
[2016-04-17 00:50] VITALS: BP 125/68; PULSE 67; RESP 19; TEMP 97.1; O2SAT 97
[2016-04-17 03:30] VITALS: BP 120/70; PULSE 69; RESP 18; TEMP 97; O2SAT 98
[2016-04-17] MEDS: hydrALAZINE HCL 25 MG TAB G-TUBE SCH ×3 (05:39→22:30)
[2016-04-17] MEDS: METOPROLOL TARTRATE 50 MG TAB PEG SCH ×3 (05:40→22:30)
[2016-04-17] MEDS: FREE WATER G-TUBE SCH ×3 (05:40→22:00)
[2016-04-17 08:10] VITALS: BP 118/74; PULSE 64; RESP 16; TEMP 95.8; O2SAT 97
[2016-04-17] MEDS: LANSOPRAZOLE SOLUTAB 30 MG TAB NG SCH (08:29)
[2016-04-17] MEDS: DOCUSATE SODIUM 50 MG/SENNA 8.6 MG TAB G-TUBE SCH ×2 (08:29→21:00)
[2016-04-17] MEDS: METHADONE HCL 10 MG/10 ML ORAL SOLUTION G-TUBE SCH ×2 (08:29→22:29)
[2016-04-17] MEDS: levETIRAcetam 500 MG/5 ML UDC PO SCH ×2 (08:29→22:30)
[2016-04-17] MEDS: SODIUM CHLORIDE 0.9% FLUSH 5 ML FLUSH IVF SCH ×4 (08:31→22:29)
[2016-04-17] MEDS: NYSTATIN 100,000 U/GM PWD 15 GM BTL TOPICAL SCH ×2 (08:31→22:29)
[2016-04-17 12:17] VITALS: BP 124/79; PULSE 66; RESP 16; TEMP 95.5; O2SAT 97
[2016-04-17] MEDS: ENOXAPARIN SODIUM 40 MG/0.4 ML SYRINGE SQ SCH (14:45)
--- NOTE | 2016-04-17 15:23 | HHI.PR ---
Subjective Remarks no complaints- just not getting sleep at night- "keep on waking me up" Objective Vitals Vital Signs Date Time Temp Pulse Resp B/P Pulse Ox O2 Delivery O2 Flow Rate FiO2 04/17/16 12:17 95.5 66 16 124/79 97 04/17/16 09:29 17 04/17/16 08:10 95.8 64 16 118/74 97 04/17/16 03:30 97.0 69 18 120/70 98 04/17/16 00:50 97.1 67 19 125/68 97 04/16/16 21:15 97.4 68 17 138/80 98 04/16/16 16:08 95.3 70 18 154/78 96 I/O 04/16/16 04/16/16 04/16/16 04/17/16 04/17/16 04/17/16 07:00 15:00 23:00 07:00 15:00 23:00 Intake Total 250 ml 480 ml 400 ml 400 ml Output Total 800 ml 750 ml 600 ml 1000 ml Balance -550 ml -270 ml -200 ml -600 ml Intake Oral 250 ml 480 ml 400 ml 400 ml Output Urine Total 800 ml 750 ml 600 ml 1000 ml # Bowel Movements 0 0 0 0 Objective Remarks head- - incisions dry (jacinto removed 04/15) awake and alert lungs no rales or wheezes regular rhythm abdomen- soft, good bowel sounds, PEG in place asher in placed -(place 04/12) extremities no edema Procedures 02/14 with right frontal bur hole and left subclavian line placement 02/15 with right occipital craniectomy with SDH evacuation 02/20 tracheostomy and PEG placement 02/25 left frontal temporoparietal decompressive craniotomy 03/06 PICC 03/29 bone flap replacement Urinary Catheter: Yes Asher insert reason: Obstruction/Retention Date of Insertion: Apr 10, 2016 Date of Insertion: Mar 06, 2016 Line: PICC Side: Right Location: Antecubital A/P Problem List: (1) Traumatic brain injury Status: Acute (2) Moderate protein-calorie malnutrition Status: Acute Assessment and Plan 65 years old male S/P TBI - PT daily - on Keppra bid- - neurosurgery ff - speech therapy ff- for swallowing and cognitive therapy - needs to be motivated- Protein Calorie malnutrition - Dietitian ff 04/11- calorie ct - only 15 % = continue TF on Jevity (on glucerna)- patient non diabetic hyperglycemia was due to critical illness will check blood sugars tid and hs for monitoring for now- good readings - 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
[2016-04-17 16:17] VITALS: BP 143/79; PULSE 63; RESP 17; TEMP 96.7; O2SAT 98
[2016-04-17 20:00] VITALS: BP 153/73; PULSE 68; RESP 16; TEMP 96.6; O2SAT 98
[2016-04-18] VITALS: BP 124/71; PULSE 69; RESP 16; TEMP 98.1; O2SAT 97
[2016-04-18 04:00] VITALS: BP 129/61; PULSE 67; RESP 16; TEMP 98.5; O2SAT 96
[2016-04-18] MEDS: FREE WATER G-TUBE SCH ×3 (06:00→20:40)
[2016-04-18] MEDS: METOPROLOL TARTRATE 50 MG TAB PEG SCH ×3 (06:02→20:38)
[2016-04-18] MEDS: hydrALAZINE HCL 25 MG TAB G-TUBE SCH ×3 (06:02→20:38)
[2016-04-18 08:00] VITALS: BP 117/71; PULSE 18; RESP 18; TEMP 96.2; O2SAT 97
[2016-04-18] MEDS: NYSTATIN 100,000 U/GM PWD 15 GM BTL TOPICAL SCH ×2 (09:00→20:40)
[2016-04-18] MEDS: SODIUM CHLORIDE 0.9% FLUSH 5 ML FLUSH IVF SCH ×4 (09:00→20:40)
[2016-04-18] MEDS: levETIRAcetam 500 MG/5 ML UDC PO SCH ×2 (09:24→20:38)
[2016-04-18] MEDS: DOCUSATE SODIUM 50 MG/SENNA 8.6 MG TAB G-TUBE SCH ×2 (09:25→20:37)
[2016-04-18] MEDS: LANSOPRAZOLE SOLUTAB 30 MG TAB NG SCH (09:25)
[2016-04-18] MEDS: METHADONE HCL 10 MG/10 ML ORAL SOLUTION G-TUBE SCH ×2 (09:26→20:39)
[2016-04-18] MEDS: ENOXAPARIN SODIUM 40 MG/0.4 ML SYRINGE SQ SCH (11:21)
[2016-04-18 12:00] VITALS: BP 125/78; PULSE 70; RESP 18; TEMP 96.4; O2SAT 97
--- NOTE | 2016-04-18 13:33 | HHI.PR ---
Subjective Remarks No acute overnight events. Patient has no current complaints. Objective Vitals Vital Signs Date Time Temp Pulse Resp B/P Pulse Ox O2 Delivery O2 Flow Rate FiO2 04/18/16 12:00 96.4 70 18 125/78 97 04/18/16 10:26 20 04/18/16 08:00 96.2 18 18 117/71 97 04/18/16 04:00 98.5 67 16 129/61 96 04/18/16 00:00 98.1 69 16 124/71 97 04/17/16 20:00 96.6 68 16 153/73 98 04/17/16 16:17 96.7 63 17 143/79 98 I/O 04/17/16 04/17/16 04/17/16 04/18/16 04/18/16 04/18/16 07:00 15:00 23:00 07:00 15:00 23:00 Intake Total 400 ml 240 ml 240 ml 120 ml Output Total 1000 ml 950 ml 350 ml 900 ml Balance -600 ml -710 ml -110 ml -780 ml Intake Oral 400 ml 240 ml 240 ml 120 ml Output Urine Total 1000 ml 950 ml 350 ml 900 ml Stool Total 0 ml 0 ml # Voids 3 6 # Bowel Movements 0 1 Imaging Last Impressions Chest X-Ray 03/27/16 0000 Signed Impressions: Service Date/Time: Sunday, March 27, 2016 03:46 - CONCLUSION: No significant change mild parenchymal opacities of the left lung. Duy Skelton MD Liver Ultrasound 03/18/16 0000 Signed Impressions: Service Date/Time: Friday, March 18, 2016 17:01 - CONCLUSION: Ultrasound appearance of the liver and other right upper quadrant structures is within normal limits. Duy Skelton MD Head CT 03/09/16 0600 Signed Impressions: Service Date/Time: Wednesday, March 09, 2016 04:21 - CONCLUSION: 1. Mild improvement of the cerebral edema in the left cerebral hemisphere. 2. Otherwise , no other new or significant changes. Alli Jj MD Head CTA 02/16/16 0000 Signed Impressions: Service Date/Time: Tuesday, February 16, 2016 04:31 - CONCLUSION: I do not see an etiology for the patient's cerebellar hemorrhage on the right. Small supratentorial vessels in a 65-year-old. Etiology of this finding is not apparent. Trace subdural blood and subarachnoid blood persist over both convexities. Earl Gaitan MD FACR Cervical Spine CT 02/15/16 0445 Signed Impressions: Service Date/Time: January 04:57 - CONCLUSION: 1. Slight neural foramina compromise bilateral C4-5 and C5-6 in addition to bilateral lateral recess compromise at these levels and no significant thecal sac stenosis. 2. There is also slight neural foramina compromise right C3-C4. 3. Nonspecific lucencies in the spine may be osteoporotic changes, however myeloma is difficult to exclude. Ariadne Feng MD Objective Remarks GENERAL: Well-nourished, well-developed patient in no apparent distress. SKIN: Warm and dry. HEAD: Atraumatic. Normocephalic. EYES: Pupils equal and round. No scleral icterus. No injection or drainage. ENT: No nasal bleeding or discharge. Mucous membranes pink and moist. NECK: Trachea midline. No JVD. CARDIOVASCULAR: Regular rate and rhythm. RESPIRATORY: No accessory muscle use. Clear to auscultation. Breath sounds equal bilaterally. GASTROINTESTINAL: Abdomen soft, non-tender, nondistended. Hepatic and splenic margins not palpable. PEG tube present MUSCULOSKELETAL: Extremities without clubbing, cyanosis, or edema. No obvious deformities. NEUROLOGICAL: Awake and alert. No obvious cranial nerve deficits. Motor grossly within normal limits. Five out of 5 muscle strength in the arms and legs. Normal speech. PSYCHIATRIC: Appropriate mood and affect; insight and judgment normal. Procedures 02/14 with right frontal bur hole and left subclavian line placement 02/15 with right occipital craniectomy with SDH evacuation 02/20 tracheostomy and PEG placement 02/25 left frontal temporoparietal decompressive craniotomy 03/06 PICC 03/29 bone flap replacement Urinary Catheter: Yes Cuenca insert reason: Obstruction/Retention Date of Insertion: Apr 10, 2016 Date of Insertion: Mar 06, 2016 Line: PICC Side: Right Location: Antecubital A/P Problem List: (1) Traumatic brain injury Status: Acute (2) Moderate protein-calorie malnutrition Status: Acute Assessment and Plan 65-year-old male with: 1. S/P traumatic brain injury: - Continue PT/speech therapy/occupational therapy - on Keppra bid for seizure prophylaxis- - neurosurgery signed off 2. Protein Calorie malnutrition: Dietitian following. Continue tube feeds. 3. HTN: Stable continue beta katherine 4. Urinary retention: Failed voiding trial. Continue Cuenca for now. 5. DVT prophylaxis: Lovenox subcutaneous. Dru Santana MD Apr 18, 2016 13:33
[2016-04-18 16:00] VITALS: BP 146/88; PULSE 79; RESP 18; TEMP 96.7; O2SAT 99
[2016-04-19] VITALS (7 sets, daily range): BP systolic 99–132; BP diastolic 56–85; PULSE 60–80; RESP 18–20; TEMP 95.3–97.8; O2SAT 95–98
[2016-04-19] MEDS: FREE WATER G-TUBE SCH ×3 (06:00→22:00)
[2016-04-19] MEDS: METOPROLOL TARTRATE 50 MG TAB PEG SCH ×3 (06:20→22:20)
[2016-04-19] MEDS: hydrALAZINE HCL 25 MG TAB G-TUBE SCH ×3 (06:20→22:20)
[2016-04-19] MEDS: SODIUM CHLORIDE 0.9% FLUSH 5 ML FLUSH IVF SCH ×4 (09:00→21:00)
[2016-04-19] MEDS: levETIRAcetam 500 MG/5 ML UDC PO SCH ×2 (09:51→22:20)
[2016-04-19] MEDS: LANSOPRAZOLE SOLUTAB 30 MG TAB NG SCH (09:51)
[2016-04-19] MEDS: NYSTATIN 100,000 U/GM PWD 15 GM BTL TOPICAL SCH ×2 (09:51→22:21)
[2016-04-19] MEDS: METHADONE HCL 10 MG/10 ML ORAL SOLUTION G-TUBE SCH ×2 (09:53→22:19)
[2016-04-19] MEDS: DOCUSATE SODIUM 50 MG/SENNA 8.6 MG TAB G-TUBE SCH ×2 (10:30→22:20)
--- NOTE | 2016-04-19 12:36 | HHI.PR ---
Subjective Remarks No acute overnight events. Patient has no new complaints. Patient seen sitting comfortably in chair. Objective Vitals Vital Signs Date Time Temp Pulse Resp B/P Pulse Ox O2 Delivery O2 Flow Rate FiO2 04/19/16 08:38 95 04/19/16 08:10 96.7 63 20 110/60 98 04/19/16 04:00 97.8 60 18 99/56 95 04/19/16 00:00 97.4 67 18 132/72 98 04/18/16 16:00 96.7 79 18 146/88 99 I/O 04/18/16 04/18/16 04/18/16 04/19/16 04/19/16 04/19/16 07:00 15:00 23:00 07:00 15:00 23:00 Intake Total 120 ml 1537 ml 480 ml 240 ml Output Total 900 ml 550 ml 600 ml 700 ml Balance -780 ml 987 ml -120 ml -460 ml Intake Oral 120 ml 480 ml 480 ml 240 ml IV Total 0 ml Tube Feeding 857 ml Other 200 ml Output Urine Total 900 ml 550 ml 600 ml 700 ml Stool Total 0 ml # Voids 6 Imaging Last Impressions Chest X-Ray 03/27/16 0000 Signed Impressions: Service Date/Time: Sunday, March 27, 2016 03:46 - CONCLUSION: No significant change mild parenchymal opacities of the left lung. Duy Skelton MD Liver Ultrasound 03/18/16 0000 Signed Impressions: Service Date/Time: Friday, March 18, 2016 17:01 - CONCLUSION: Ultrasound appearance of the liver and other right upper quadrant structures is within normal limits. Duy Skelton MD Head CT 03/09/16 0600 Signed Impressions: Service Date/Time: Wednesday, March 09, 2016 04:21 - CONCLUSION: 1. Mild improvement of the cerebral edema in the left cerebral hemisphere. 2. Otherwise , no other new or significant changes. Alli Jj MD Head CTA 02/16/16 0000 Signed Impressions: Service Date/Time: Tuesday, February 16, 2016 04:31 - CONCLUSION: I do not see an etiology for the patient's cerebellar hemorrhage on the right. Small supratentorial vessels in a 65-year-old. Etiology of this finding is not apparent. Trace subdural blood and subarachnoid blood persist over both convexities. Earl Gaitan MD FACR Cervical Spine CT 02/15/16 0445 Signed Impressions: Service Date/Time: January 04:57 - CONCLUSION: 1. Slight neural foramina compromise bilateral C4-5 and C5-6 in addition to bilateral lateral recess compromise at these levels and no significant thecal sac stenosis. 2. There is also slight neural foramina compromise right C3-C4. 3. Nonspecific lucencies in the spine may be osteoporotic changes, however myeloma is difficult to exclude. Ariadne Feng MD Objective Remarks GENERAL: Well-nourished, well-developed patient in no apparent distress. SKIN: Warm and dry. HEAD: Atraumatic. Normocephalic. EYES: Pupils equal and round. No scleral icterus. No injection or drainage. ENT: No nasal bleeding or discharge. Mucous membranes pink and moist. NECK: Trachea midline. No JVD. CARDIOVASCULAR: Regular rate and rhythm. RESPIRATORY: No accessory muscle use. Clear to auscultation. Breath sounds equal bilaterally. GASTROINTESTINAL: Abdomen soft, non-tender, nondistended. Hepatic and splenic margins not palpable. PEG tube present MUSCULOSKELETAL: Extremities without clubbing, cyanosis, or edema. No obvious deformities. NEUROLOGICAL: Awake and alert. No obvious cranial nerve deficits. Motor grossly within normal limits. Five out of 5 muscle strength in the arms and legs. Normal speech. PSYCHIATRIC: Appropriate mood and affect; insight and judgment normal. Procedures 02/14 with right frontal bur hole and left subclavian line placement 02/15 with right occipital craniectomy with SDH evacuation 02/20 tracheostomy and PEG placement 02/25 left frontal temporoparietal decompressive craniotomy 03/06 PICC / bone flap replacement Date of Insertion: Apr 10, 2016 Date of Insertion: Mar 06, 2016 Line: PICC Side: Right Location: Antecubital A/P Problem List: (1) Traumatic brain injury Status: Acute (2) Moderate protein-calorie malnutrition Status: Acute Assessment and Plan 65-year-old male with: 1. S/P traumatic brain injury: Initial head CT with right occipital bone fracture along with intraparenchymal hemorrhage, bilateral subdural hematomas, and subarachnoid hemorrhages. Patient is status post right frontal bur hole, right occipital craniectomy with SDH evacuation, PEG placement, left frontal temporoparietal decompressive craniotomy, and subsequent bone flap replacement. - Continue PT/speech therapy/occupational therapy - on Keppra bid for seizure prophylaxis- - neurosurgery signed off 2. Protein Calorie malnutrition: Dietitian following. Continue tube feeds. Encourage by mouth feeding. 3. HTN: Stable continue beta katherine 4. Urinary retention: Failed voiding trial. Continue Cuenca for now. 5. DVT prophylaxis: Lovenox subcutaneous. Dru Santana MD Apr 19, 2016 12:36 Dru Santana MD Apr 19, 2016 12:36
[2016-04-19] MEDS: ENOXAPARIN SODIUM 40 MG/0.4 ML SYRINGE SQ SCH (13:06)
[2016-04-20] VITALS: BP 140/70; PULSE 63; RESP 20; TEMP 96.4; O2SAT 97
[2016-04-20 04:00] VITALS: BP 125/74; PULSE 64; RESP 20; TEMP 96; O2SAT 95
[2016-04-20] MEDS: hydrALAZINE HCL 25 MG TAB G-TUBE SCH ×3 (05:42→21:13)
[2016-04-20] MEDS: FREE WATER G-TUBE SCH ×3 (05:42→21:13)
[2016-04-20] MEDS: METOPROLOL TARTRATE 50 MG TAB PEG SCH ×3 (05:42→21:13)
[2016-04-20] MEDS: SODIUM CHLORIDE 0.9% FLUSH 5 ML FLUSH IVF SCH ×4 (08:56→21:00)
[2016-04-20] MEDS: NYSTATIN 100,000 U/GM PWD 15 GM BTL TOPICAL SCH ×2 (09:00→21:00)
[2016-04-20] MEDS: levETIRAcetam 500 MG/5 ML UDC PO SCH ×2 (09:00→21:00)
[2016-04-20] MEDS: DOCUSATE SODIUM 50 MG/SENNA 8.6 MG TAB G-TUBE SCH ×2 (09:00→21:10)
[2016-04-20] MEDS: LANSOPRAZOLE SOLUTAB 30 MG TAB NG SCH (09:00)
[2016-04-20] MEDS: METHADONE HCL 10 MG/10 ML ORAL SOLUTION G-TUBE SCH ×2 (09:01→21:15)
[2016-04-20 09:34] VITALS: BP 147/81; PULSE 60; RESP 19; TEMP 96.3; O2SAT 96
--- NOTE | 2016-04-20 11:30 | HHI.PR ---
Subjective Remarks Patient seen sitting upright in bed. Wants his gown changed, otherwise denies any specific medical complaints. Vital signs stable. Objective Vitals Vital Signs Date Time Temp Pulse Resp B/P Pulse Ox O2 Delivery O2 Flow Rate FiO2 04/20/16 09:34 96.3 60 19 147/81 96 04/20/16 04:00 96.0 64 20 125/74 95 04/20/16 00:00 96.4 63 20 140/70 97 04/19/16 23:19 19 04/19/16 20:00 96.7 65 20 120/82 97 04/19/16 17:01 97.2 80 20 124/75 04/19/16 12:40 95.3 71 20 132/85 97 I/O 04/19/16 04/19/16 04/19/16 04/20/16 04/20/16 04/20/16 07:00 15:00 23:00 07:00 15:00 23:00 Intake Total 240 ml 3050 ml 775 ml 0 ml Output Total 700 ml 1050 ml 550 ml Balance -460 ml 2000 ml 225 ml 0 ml Intake Oral 240 ml 600 ml 240 ml IV Total 0 ml 0 ml Tube Feeding 2250 ml 335 ml Other 200 ml 200 ml Output Urine Total 700 ml 1050 ml 550 ml Bladder Scan Volume Amount 545 ml # Bowel Movements 0 0 Imaging Last Impressions Chest X-Ray 03/27/16 0000 Signed Impressions: Service Date/Time: Sunday, March 27, 2016 03:46 - CONCLUSION: No significant change mild parenchymal opacities of the left lung. Duy Skelton MD Liver Ultrasound 03/18/16 0000 Signed Impressions: Service Date/Time: Friday, March 18, 2016 17:01 - CONCLUSION: Ultrasound appearance of the liver and other right upper quadrant structures is within normal limits. Duy Skelton MD Head CT 03/09/16 0600 Signed Impressions: Service Date/Time: Wednesday, March 09, 2016 04:21 - CONCLUSION: 1. Mild improvement of the cerebral edema in the left cerebral hemisphere. 2. Otherwise , no other new or significant changes. Alli Jj MD Head CTA 02/16/16 0000 Signed Impressions: Service Date/Time: Tuesday, February 16, 2016 04:31 - CONCLUSION: I do not see an etiology for the patient's cerebellar hemorrhage on the right. Small supratentorial vessels in a 65-year-old. Etiology of this finding is not apparent. Trace subdural blood and subarachnoid blood persist over both convexities. Earl Gaitan MD FACR Cervical Spine CT 02/15/16 0445 Signed Impressions: Service Date/Time: January 04:57 - CONCLUSION: 1. Slight neural foramina compromise bilateral C4-5 and C5-6 in addition to bilateral lateral recess compromise at these levels and no significant thecal sac stenosis. 2. There is also slight neural foramina compromise right C3-C4. 3. Nonspecific lucencies in the spine may be osteoporotic changes, however myeloma is difficult to exclude. Ariadne Feng MD Objective Remarks GENERAL: Well-nourished, well-developed middle aged male patient in [facility]. SKIN: Warm and dry. No rash. HEAD: Normocephalic. Atraumatic. EYES: Pupils equal and round. No scleral icterus. No injection or drainage. ENT: No nasal bleeding or discharge. Mucous membranes pink and moist. NECK: Supple. Trachea midline. No JVD. CARDIOVASCULAR: Regular rate and rhythm. S1, S2 noted. No murmur appreciated. RESPIRATORY: No accessory muscle use. Clear to auscultation. Breath sounds equal bilaterally. GASTROINTESTINAL: Abdomen soft, non-tender, nondistended. Normoactive bowel sounds x4. PEG in place. MUSCULOSKELETAL: No obvious deformities. Extremities without clubbing, cyanosis , or edema. NEUROLOGICAL: Awake and alert, oriented to self. Normal speech, however sometimes nonsensical. Procedures 02/14 with right frontal bur hole and left subclavian line placement 02/15 with right occipital craniectomy with SDH evacuation 02/20 tracheostomy and PEG placement 02/25 left frontal temporoparietal decompressive craniotomy 03/06 PICC 03/29 bone flap replacement Medications and IVs Current Medications Medications (Trade) Dose Ordered Sig/Rodney Route Start Time Stop Time Status Last Admin Miscellaneous Information 1 [id number] XX 02/15/16 04:00 (NS Flush) 2 ml UNSCH PRN IVF 02/16/16 11:45 03/04/16 17:14 (NS Flush) 2 ml BID IVF 02/16/16 21:00 04/17/16 22:29 (Dulcolax Supp) 10 mg DAILY PRN AL 02/16/16 11:45 03/25/16 19:37 (NS Flush) See Protocol DAILY IVF 03/09/16 09:00 04/19/16 09:52 (NS Flush) See Protocol UNSCH PRN IVF 03/08/16 19:30 04/04/16 08:32 (Heparin Central Flush) See Protocol DAILY IVF 03/09/16 09:00 04/10/16 09:00 (Heparin Central Flush) See Protocol UNSCH PRN IVF 03/08/16 19:30 (NS Flush) See Protocol UNSCH PRN IVF 03/08/16 19:30 04/04/16 08:32 (Lopressor) 50 mg Q8H PEG 03/09/16 22:00 04/20/16 05:42 (Ativan Inj) 1 mg Q2H PRN IV PUSH 03/13/16 08:45 (Ativan Inj) 2 mg Q4H PRN IV PUSH 03/17/16 10:45 (Free Water) VOLUME: 200 ML Q8HR G-TUBE 03/18/16 14:00 04/20/16 05:42 (Prevacid Odt) 30 mg DAILY NG 03/21/16 09:00 04/20/16 09:00 (Levsin Liq) 0.125 mg Q4H PRN PEG 03/24/16 11:15 03/25/16 23:20 (NS Flush) 2 ml UNSCH PRN IVF 03/29/16 10:30 (NS Flush) 2 ml BID IVF 03/29/16 10:30 04/17/16 22:29 (Zofran Inj) 4 mg Q6H PRN IV 03/29/16 10:30 (Tylenol) 650 mg Q4H PRN PO 03/29/16 10:30 (Colace) 100 mg BID PRN GT 03/30/16 05:45 04/08/16 09:16 (Chelsea-Colace) 2 tab BID G-TUBE 03/30/16 09:00 04/20/16 09:00 (Lactulose Liq) 30 ml TID PRN G-TUBE 03/30/16 05:45 (Milk Of Magnesia Liq) 30 ml Q6H PRN G-TUBE 03/30/16 05:45 (Apresoline) 25 mg Q8HR G-TUBE 03/30/16 14:00 04/20/16 05:42 (Methadone Liq) 2.5 mg Q12HR G-TUBE 03/30/16 21:00 04/20/16 09:01 (Motrin Liq) 400 mg Q6H PRN PO 04/01/16 11:15 04/10/16 13:01 (Lovenox Inj) 40 mg Q24H SQ 04/01/16 12:00 04/19/16 13:06 (Mycostatin Powder) 1 applic Q12HR TOPICAL 04/03/16 21:00 04/20/16 09:00 (Keppra Liq) 1,000 mg Q12HR PO 04/15/16 21:00 04/20/16 09:00 Date of Insertion: Apr 10, 2016 Date of Insertion: Mar 06, 2016 Line: PICC Side: Right Location: Antecubital A/P Problem List: (1) Traumatic brain injury Status: Acute (2) Moderate protein-calorie malnutrition Status: Acute Assessment and Plan 65-year-old male with: 1. S/P traumatic brain injury: Initial head CT with right occipital bone fracture along with intraparenchymal hemorrhage, bilateral subdural hematomas, and subarachnoid hemorrhages. Patient is status post right frontal bur hole, right occipital craniectomy with SDH evacuation, PEG placement, left frontal temporoparietal decompressive craniotomy, and subsequent bone flap replacement. - Continue PT/speech therapy/occupational therapy - on Keppra bid for seizure prophylaxis- - neurosurgery signed off 2. Protein Calorie malnutrition: Dietitian following. Continue tube feeds. Encourage by mouth feeding. 3. HTN: Stable continue beta katherine 4. Urinary retention: Failed voiding trial. Continue Cuenca for now. 5. DVT prophylaxis: Lovenox subcutaneous. Discharge Planning Needs placement. Attending Statement Patient seen by mid-level provider. I agree with above. Rosa Rodriguez PA-C Apr 20, 2016 11:30 Dru Santana MD Apr 20, 2016 16:06
[2016-04-20] MEDS: ENOXAPARIN SODIUM 40 MG/0.4 ML SYRINGE SQ SCH (11:53)
[2016-04-20 12:23] VITALS: BP 141/72; PULSE 62; RESP 18; TEMP 96.1; O2SAT 96
[2016-04-20 17:13] VITALS: BP 124/72; PULSE 65; RESP 16; TEMP 97.3; O2SAT 96
[2016-04-20 20:00] VITALS: BP 124/71; PULSE 64; RESP 20; TEMP 94.9; TEMP 97; O2SAT 97
[2016-04-21 04:00] VITALS: BP 119/77; PULSE 57; RESP 18; TEMP 97.5; O2SAT 95
[2016-04-21] MEDS: FREE WATER G-TUBE SCH ×3 (06:00→22:00)
[2016-04-21] MEDS: hydrALAZINE HCL 25 MG TAB G-TUBE SCH ×3 (06:45→22:04)
[2016-04-21] MEDS: METOPROLOL TARTRATE 50 MG TAB PEG SCH ×3 (06:45→22:04)
[2016-04-21] MEDS: DOCUSATE SODIUM 50 MG/SENNA 8.6 MG TAB G-TUBE SCH ×2 (08:45→22:03)
[2016-04-21] MEDS: levETIRAcetam 500 MG/5 ML UDC PO SCH ×2 (08:45→22:05)
[2016-04-21] MEDS: LANSOPRAZOLE SOLUTAB 30 MG TAB NG SCH (08:45)
[2016-04-21] MEDS: SODIUM CHLORIDE 0.9% FLUSH 5 ML FLUSH IVF SCH ×4 (08:46→21:00)
[2016-04-21] MEDS: METHADONE HCL 10 MG/10 ML ORAL SOLUTION G-TUBE SCH ×2 (08:46→22:06)
[2016-04-21] MEDS: NYSTATIN 100,000 U/GM PWD 15 GM BTL TOPICAL SCH ×2 (08:47→21:00)
[2016-04-21 09:24] VITALS: BP 116/76; PULSE 63; RESP 17; TEMP 95.8; O2SAT 97
[2016-04-21] MEDS: ENOXAPARIN SODIUM 40 MG/0.4 ML SYRINGE SQ SCH (12:26)
[2016-04-21 13:07] VITALS: BP 120/75; PULSE 57; RESP 18; TEMP 95.9; O2SAT 97
--- NOTE | 2016-04-21 14:57 | HHI.PR ---
Subjective Remarks Patient seen sitting upright in bed watching tv. Denies any medical complaints. Says he's eating well. Denies any medical complaints. Vital signs stable. Objective Vitals Vital Signs Date Time Temp Pulse Resp B/P Pulse Ox O2 Delivery O2 Flow Rate FiO2 04/21/16 13:07 95.9 57 18 120/75 97 04/21/16 09:24 95.8 63 17 116/76 97 04/21/16 04:00 97.5 57 18 119/77 95 04/20/16 20:00 94.9 64 20 124/71 97 04/20/16 17:13 97.3 65 16 124/72 96 I/O 04/20/16 04/20/16 04/20/16 04/21/16 04/21/16 04/21/16 07:00 15:00 23:00 07:00 15:00 23:00 Intake Total 775 ml 655 ml 720 ml Output Total 550 ml 725 ml 800 ml Balance 225 ml 655 ml -5 ml -800 ml Intake Oral 240 ml 720 ml IV Total 0 ml Tube Feeding 335 ml 455 ml Other 200 ml 200 ml Output Urine Total 550 ml 725 ml 800 ml Bladder Scan Volume Amount 545 ml # Bowel Movements 0 0 Imaging Last Impressions Chest X-Ray 03/27/16 0000 Signed Impressions: Service Date/Time: Sunday, March 27, 2016 03:46 - CONCLUSION: No significant change mild parenchymal opacities of the left lung. Duy Skelton MD Liver Ultrasound 03/18/16 0000 Signed Impressions: Service Date/Time: Friday, March 18, 2016 17:01 - CONCLUSION: Ultrasound appearance of the liver and other right upper quadrant structures is within normal limits. Duy Skelton MD Head CT 03/09/16 0600 Signed Impressions: Service Date/Time: Wednesday, March 09, 2016 04:21 - CONCLUSION: 1. Mild improvement of the cerebral edema in the left cerebral hemisphere. 2. Otherwise , no other new or significant changes. Alli Jj MD Head CTA 02/16/16 0000 Signed Impressions: Service Date/Time: Tuesday, February 16, 2016 04:31 - CONCLUSION: I do not see an etiology for the patient's cerebellar hemorrhage on the right. Small supratentorial vessels in a 65-year-old. Etiology of this finding is not apparent. Trace subdural blood and subarachnoid blood persist over both convexities. Earl Gaitan MD FACR Cervical Spine CT 02/15/16 0445 Signed Impressions: Service Date/Time: January 04:57 - CONCLUSION: 1. Slight neural foramina compromise bilateral C4-5 and C5-6 in addition to bilateral lateral recess compromise at these levels and no significant thecal sac stenosis. 2. There is also slight neural foramina compromise right C3-C4. 3. Nonspecific lucencies in the spine may be osteoporotic changes, however myeloma is difficult to exclude. Ariadne Feng MD Objective Remarks GENERAL: Well-nourished, well-developed middle aged male patient in [facility]. SKIN: Warm and dry. No rash. HEAD: Normocephalic. Atraumatic. ENT: No nasal bleeding or discharge. Mucous membranes pink and moist. NECK: Supple. Trachea midline. CARDIOVASCULAR: Regular rate and rhythm. S1, S2 noted. No murmur appreciated. RESPIRATORY: No accessory muscle use. Clear to auscultation. Breath sounds equal bilaterally. GASTROINTESTINAL: Abdomen soft, non-tender, nondistended. Normoactive bowel sounds x4. PEG in place. MUSCULOSKELETAL: No obvious deformities. Extremities without clubbing, cyanosis , or edema. NEUROLOGICAL: Awake and alert, oriented to self. Normal speech, however sometimes nonsensical. Procedures 02/14 with right frontal bur hole and left subclavian line placement 02/15 with right occipital craniectomy with SDH evacuation 02/20 tracheostomy and PEG placement 02/25 left frontal temporoparietal decompressive craniotomy 03/06 PICC 03/29 bone flap replacement Medications and IVs Current Medications Medications (Trade) Dose Ordered Sig/Rodney Route Start Time Stop Time Status Last Admin Miscellaneous Information 1 [id number] XX 02/15/16 04:00 (NS Flush) 2 ml UNSCH PRN IVF 02/16/16 11:45 03/04/16 17:14 (NS Flush) 2 ml BID IVF 02/16/16 21:00 04/17/16 22:29 (Dulcolax Supp) 10 mg DAILY PRN VT 02/16/16 11:45 03/25/16 19:37 (NS Flush) See Protocol DAILY IVF 03/09/16 09:00 04/19/16 09:52 (NS Flush) See Protocol UNSCH PRN IVF 03/08/16 19:30 04/04/16 08:32 (Heparin Central Flush) See Protocol DAILY IVF 03/09/16 09:00 04/10/16 09:00 (Heparin Central Flush) See Protocol UNSCH PRN IVF 03/08/16 19:30 (NS Flush) See Protocol UNSCH PRN IVF 03/08/16 19:30 04/04/16 08:32 (Lopressor) 50 mg Q8H PEG 03/09/16 22:00 04/21/16 06:45 (Ativan Inj) 1 mg Q2H PRN IV PUSH 03/13/16 08:45 (Ativan Inj) 2 mg Q4H PRN IV PUSH 03/17/16 10:45 (Free Water) VOLUME: 200 ML Q8HR G-TUBE 03/18/16 14:00 04/21/16 14:00 (Prevacid Odt) 30 mg DAILY NG 03/21/16 09:00 04/21/16 08:45 (Levsin Liq) 0.125 mg Q4H PRN PEG 03/24/16 11:15 03/25/16 23:20 (NS Flush) 2 ml UNSCH PRN IVF 03/29/16 10:30 (NS Flush) 2 ml BID IVF 03/29/16 10:30 04/17/16 22:29 (Zofran Inj) 4 mg Q6H PRN IV 03/29/16 10:30 (Tylenol) 650 mg Q4H PRN PO 03/29/16 10:30 (Colace) 100 mg BID PRN GT 03/30/16 05:45 04/08/16 09:16 (Chelsea-Colace) 2 tab BID G-TUBE 03/30/16 09:00 04/21/16 08:45 (Lactulose Liq) 30 ml TID PRN G-TUBE 03/30/16 05:45 (Milk Of Magnesia Liq) 30 ml Q6H PRN G-TUBE 03/30/16 05:45 (Apresoline) 25 mg Q8HR G-TUBE 03/30/16 14:00 04/21/16 14:28 (Methadone Liq) 2.5 mg Q12HR G-TUBE 03/30/16 21:00 04/21/16 08:46 (Motrin Liq) 400 mg Q6H PRN PO 04/01/16 11:15 04/10/16 13:01 (Lovenox Inj) 40 mg Q24H SQ 04/01/16 12:00 04/21/16 12:26 (Mycostatin Powder) 1 applic Q12HR TOPICAL 04/03/16 21:00 04/21/16 08:47 (Keppra Liq) 1,000 mg Q12HR PO 04/15/16 21:00 04/21/16 08:45 Urinary Catheter: Yes Date of Insertion: Apr 10, 2016 Date of Insertion: Mar 06, 2016 Line: PICC Side: Right Location: Antecubital A/P Problem List: (1) Traumatic brain injury Status: Acute (2) Moderate protein-calorie malnutrition Status: Acute Assessment and Plan 65-year-old male with: 1. S/P traumatic brain injury: Initial head CT with right occipital bone fracture along with intraparenchymal hemorrhage, bilateral subdural hematomas, and subarachnoid hemorrhages. Patient is status post right frontal bur hole, right occipital craniectomy with SDH evacuation, PEG placement, left frontal temporoparietal decompressive craniotomy, and subsequent bone flap replacement. - Continue PT/speech therapy/occupational therapy - on Keppra bid for seizure prophylaxis- - neurosurgery signed off 2. Protein Calorie malnutrition: Dietitian following. Continue tube feeds. Encourage by mouth feeding. 3. HTN: Stable continue beta katherine 4. Urinary retention: Failed voiding trial. Continue Cuenca for now. 5. DVT prophylaxis: Lovenox subcutaneous. Discharge Planning Needs placement. Attending Statement Patient seen by mid-level provider. I agree with above. Rosa Rodriguez PA-C Apr 21, 2016 14:57 Dru Santana MD Apr 21, 2016 18:42
[2016-04-21 16:48] VITALS: BP 119/62; PULSE 65; RESP 17; TEMP 95.9; O2SAT 97
[2016-04-21 20:00] VITALS: BP 138/77; PULSE 64; RESP 18; TEMP 97.2; O2SAT 98
[2016-04-22] VITALS: BP 134/70; PULSE 67; RESP 20; TEMP 96.7; O2SAT 95
[2016-04-22 04:00] VITALS: BP 138/72
[2016-04-22] MEDS: hydrALAZINE HCL 25 MG TAB G-TUBE SCH ×3 (05:49→20:45)
[2016-04-22] MEDS: FREE WATER G-TUBE SCH ×3 (05:49→20:49)
[2016-04-22] MEDS: METOPROLOL TARTRATE 50 MG TAB PEG SCH ×3 (05:49→20:49)
[2016-04-22 08:00] VITALS: BP 116/74; PULSE 55; RESP 18; TEMP 95.6; O2SAT 96
[2016-04-22] MEDS: DOCUSATE SODIUM 50 MG/SENNA 8.6 MG TAB G-TUBE SCH ×2 (08:14→20:45)
[2016-04-22] MEDS: levETIRAcetam 500 MG/5 ML UDC PO SCH ×2 (08:14→20:44)
[2016-04-22] MEDS: LANSOPRAZOLE SOLUTAB 30 MG TAB NG SCH (08:14)
[2016-04-22] MEDS: NYSTATIN 100,000 U/GM PWD 15 GM BTL TOPICAL SCH ×2 (08:15→20:50)
[2016-04-22] MEDS: SODIUM CHLORIDE 0.9% FLUSH 5 ML FLUSH IVF SCH ×4 (08:15→21:00)
[2016-04-22] MEDS: METHADONE HCL 10 MG/10 ML ORAL SOLUTION G-TUBE SCH ×2 (08:15→20:46)
[2016-04-22] MEDS: ENOXAPARIN SODIUM 40 MG/0.4 ML SYRINGE SQ SCH (09:59)
[2016-04-22 12:35] VITALS: BP 128/71; PULSE 64; RESP 18; TEMP 95.7; O2SAT 97
--- NOTE | 2016-04-22 13:50 | HHI.PR ---
Subjective Remarks Patient seen sitting upright in bedside chair working with OT. He denies any specific complaints. Denies any pain today. Tolerated lunch. Still with expressive aphasia. Of note, patient has had Cuenca since 04/10. OT at bedside states the patient is getting around fairly well, questioning necessity of Cuenca catheter. Discussed with Dr. Santana, will remove Cuenca. Objective Vitals Vital Signs Date Time Temp Pulse Resp B/P Pulse Ox O2 Delivery O2 Flow Rate FiO2 04/22/16 12:35 95.7 64 18 128/71 97 04/22/16 08:00 95.6 55 18 116/74 96 04/22/16 04:00 138/72 04/22/16 00:00 96.7 67 20 134/70 95 04/21/16 20:00 97.2 64 18 138/77 98 04/21/16 16:48 95.9 65 17 119/62 97 I/O 04/21/16 04/21/16 04/21/16 04/22/16 04/22/16 04/22/16 07:00 15:00 23:00 07:00 15:00 23:00 Intake Total 240 ml 1841 ml Output Total 800 ml 400 ml 900 ml Balance -800 ml -160 ml -900 ml 1841 ml Intake Oral 240 ml Tube Feeding 1841 ml Output Urine Total 800 ml 400 ml 900 ml # Bowel Movements 1 Imaging Last Impressions Chest X-Ray 03/27/16 0000 Signed Impressions: Service Date/Time: Sunday, March 27, 2016 03:46 - CONCLUSION: No significant change mild parenchymal opacities of the left lung. Duy Skelton MD Liver Ultrasound 03/18/16 0000 Signed Impressions: Service Date/Time: Friday, March 18, 2016 17:01 - CONCLUSION: Ultrasound appearance of the liver and other right upper quadrant structures is within normal limits. Duy Skelton MD Head CT 03/09/16 0600 Signed Impressions: Service Date/Time: Wednesday, March 09, 2016 04:21 - CONCLUSION: 1. Mild improvement of the cerebral edema in the left cerebral hemisphere. 2. Otherwise , no other new or significant changes. Alli Jj MD Head CTA 02/16/16 0000 Signed Impressions: Service Date/Time: Tuesday, February 16, 2016 04:31 - CONCLUSION: I do not see an etiology for the patient's cerebellar hemorrhage on the right. Small supratentorial vessels in a 65-year-old. Etiology of this finding is not apparent. Trace subdural blood and subarachnoid blood persist over both convexities. Eral Gaitan MD FACR Cervical Spine CT 02/15/16 0445 Signed Impressions: Service Date/Time: January 04:57 - CONCLUSION: 1. Slight neural foramina compromise bilateral C4-5 and C5-6 in addition to bilateral lateral recess compromise at these levels and no significant thecal sac stenosis. 2. There is also slight neural foramina compromise right C3-C4. 3. Nonspecific lucencies in the spine may be osteoporotic changes, however myeloma is difficult to exclude. Ariadne Feng MD Objective Remarks GENERAL: Well-nourished, well-developed middle aged male patient in [facility]. SKIN: Warm and dry. No rash. HEAD: Normocephalic. Atraumatic. ENT: No nasal bleeding or discharge. Mucous membranes pink and moist. NECK: Supple. Trachea midline. CARDIOVASCULAR: Regular rate and rhythm. S1, S2 noted. No murmur appreciated. RESPIRATORY: No accessory muscle use. Clear to auscultation. Breath sounds equal bilaterally. GASTROINTESTINAL: Abdomen soft, non-tender, nondistended. Normoactive bowel sounds x4. PEG in place. GENITOURINARY: Cuenca catheter in place. MUSCULOSKELETAL: No obvious deformities. Extremities without clubbing, cyanosis , or edema. NEUROLOGICAL: Awake and alert, oriented to self. Normal speech, however sometimes nonsensical. Procedures 02/14 with right frontal bur hole and left subclavian line placement 02/15 with right occipital craniectomy with SDH evacuation 02/20 tracheostomy and PEG placement 02/25 left frontal temporoparietal decompressive craniotomy 03/06 PICC 03/29 bone flap replacement Urinary Catheter: Yes Assessment to: Remove Cuenca insert reason: Obstruction/Retention Date of Insertion: Apr 10, 2016 Date of Removal: Apr 22, 2016 Date of Insertion: Mar 06, 2016 Line: PICC Side: Right Location: Antecubital A/P Problem List: (1) Traumatic brain injury Status: Acute (2) Moderate protein-calorie malnutrition Status: Acute Assessment and Plan 65-year-old male with: 1. S/P traumatic brain injury: Initial head CT with right occipital bone fracture along with intraparenchymal hemorrhage, bilateral subdural hematomas, and subarachnoid hemorrhages. Patient is status post right frontal bur hole, right occipital craniectomy with SDH evacuation, PEG placement, left frontal temporoparietal decompressive craniotomy, and subsequent bone flap replacement. - Continue PT/speech therapy/occupational therapy - on Keppra bid for seizure prophylaxis- - neurosurgery signed off 2. Protein Calorie malnutrition: Dietitian following. Continue tube feeds. Encourage by mouth feeding. 3. HTN: Stable continue beta katherine 4. Urinary retention: Failed voiding trial on 04/10 therefore Cuenca placed, however with patient ambulating well, will remove Cuenca and try another void trial today. 5. DVT prophylaxis: Lovenox subcutaneous. Discharge Planning Needs placement. Attending Statement Patient seen by midlevel provider, I agree with above. Rosa Rodriguez PA-C Apr 22, 2016 13:50 Dru Santana MD Apr 22, 2016 18:09
[2016-04-22 16:36] VITALS: BP 137/74; PULSE 73; RESP 18; TEMP 97; O2SAT 96
[2016-04-22 20:00] VITALS: BP 149/83; PULSE 73; RESP 20; TEMP 96.7; O2SAT 96
[2016-04-23] VITALS: BP 124/72; PULSE 64; RESP 20; TEMP 96.2; O2SAT 97
[2016-04-23 05:10] VITALS: BP 119/66; PULSE 70; RESP 20; TEMP 96.8; O2SAT 96
[2016-04-23] MEDS: FREE WATER G-TUBE SCH ×3 (06:00→22:00)
[2016-04-23] MEDS: METOPROLOL TARTRATE 50 MG TAB PEG SCH ×3 (06:30→22:39)
[2016-04-23] MEDS: hydrALAZINE HCL 25 MG TAB G-TUBE SCH ×3 (06:30→22:38)
[2016-04-23] MEDS: SODIUM CHLORIDE 0.9% FLUSH 5 ML FLUSH IVF SCH ×4 (07:46→21:00)
[2016-04-23 08:00] VITALS: BP 125/73; PULSE 61; RESP 20; TEMP 97.4; O2SAT 96
[2016-04-23] MEDS: NYSTATIN 100,000 U/GM PWD 15 GM BTL TOPICAL SCH ×3 (09:00→22:45)
[2016-04-23] MEDS: METHADONE HCL 10 MG/10 ML ORAL SOLUTION G-TUBE SCH ×2 (09:07→22:37)
[2016-04-23] MEDS: levETIRAcetam 500 MG/5 ML UDC PO SCH ×2 (09:07→22:38)
[2016-04-23] MEDS: LANSOPRAZOLE SOLUTAB 30 MG TAB NG SCH (09:07)
[2016-04-23] MEDS: DOCUSATE SODIUM 50 MG/SENNA 8.6 MG TAB G-TUBE SCH ×2 (09:07→22:38)
[2016-04-23 12:00] VITALS: BP 117/73; PULSE 60; RESP 20; TEMP 95.8; O2SAT 97
[2016-04-23] MEDS: ENOXAPARIN SODIUM 40 MG/0.4 ML SYRINGE SQ SCH (12:04)
[2016-04-23 16:00] VITALS: BP 136/78; PULSE 75; RESP 20; TEMP 95.9; O2SAT 97
--- NOTE | 2016-04-23 16:00 | HHI.PR ---
Subjective Remarks Discussed with RN, states patient has been eating better. Also metoprolol was held due to bradycardia at mid day. The patient has no acute complaints today, but does not communicate well with expressive aphasia. He is happy that his Cuenca was removed yesterday and has had no issues voiding on his own. He states he is able to ambulate reasonably well when he has someone to help him. He feels like he is eating about the same as he has been. Objective Vitals Vital Signs Date Time Temp Pulse Resp B/P Pulse Ox O2 Delivery O2 Flow Rate FiO2 04/23/16 12:00 95.8 60 20 117/73 97 04/23/16 08:00 97.4 61 20 125/73 96 04/23/16 05:10 96.8 70 20 119/66 96 04/23/16 00:00 96.2 64 20 124/72 97 04/22/16 20:00 96.7 73 20 149/83 96 04/22/16 16:36 97.0 73 18 137/74 96 I/O 04/22/16 04/22/16 04/22/16 04/23/16 04/23/16 04/23/16 07:00 15:00 23:00 07:00 15:00 23:00 Intake Total 2321 ml 120 ml 1380 ml Output Total 900 ml 500 ml 350 ml 200 ml Balance -900 ml 1821 ml -230 ml 1180 ml Intake Oral 480 ml 120 ml Tube Feeding 1841 ml 1180 ml Tube Irrigant 200 ml Output Urine Total 900 ml 500 ml 350 ml 200 ml # Bowel Movements 0 0 Imaging Last Impressions Chest X-Ray 03/27/16 0000 Signed Impressions: Service Date/Time: Sunday, March 27, 2016 03:46 - CONCLUSION: No significant change mild parenchymal opacities of the left lung. Duy Skelton MD Liver Ultrasound 03/18/16 0000 Signed Impressions: Service Date/Time: Friday, March 18, 2016 17:01 - CONCLUSION: Ultrasound appearance of the liver and other right upper quadrant structures is within normal limits. Duy Skelton MD Head CT 03/09/16 0600 Signed Impressions: Service Date/Time: Wednesday, March 09, 2016 04:21 - CONCLUSION: 1. Mild improvement of the cerebral edema in the left cerebral hemisphere. 2. Otherwise , no other new or significant changes. Alli Jj MD Head CTA 02/16/16 0000 Signed Impressions: Service Date/Time: Tuesday, February 16, 2016 04:31 - CONCLUSION: I do not see an etiology for the patient's cerebellar hemorrhage on the right. Small supratentorial vessels in a 65-year-old. Etiology of this finding is not apparent. Trace subdural blood and subarachnoid blood persist over both convexities. Earl Gaitan MD FACR Cervical Spine CT 02/15/16 0445 Signed Impressions: Service Date/Time: January 04:57 - CONCLUSION: 1. Slight neural foramina compromise bilateral C4-5 and C5-6 in addition to bilateral lateral recess compromise at these levels and no significant thecal sac stenosis. 2. There is also slight neural foramina compromise right C3-C4. 3. Nonspecific lucencies in the spine may be osteoporotic changes, however myeloma is difficult to exclude. Ariadne Feng MD Objective Remarks GENERAL: Well-developed well-nourished. In no acute distress. SKIN: Warm and dry. No lesions noted. HEENT: Normocephalic. Pupils equal and round. Mucous membranes pink and moist. CARDIOVASCULAR: Regular rate and rhythm. No murmur appreciated. RESPIRATORY: No accessory muscle use. Clear to auscultation. Breath sounds equal bilaterally. GASTROINTESTINAL: Abdomen soft, non-tender, nondistended. Bowel sounds x4. PEG tube in place. MUSCULOSKELETAL: No obvious deformities. No clubbing or cyanosis. No edema. NEUROLOGICAL: Awake and alert. Moves upper and lower extremities spontaneously. Normal speech, occasionally nonsensical. PSYCHIATRIC: Appropriate mood and affect; insight and judgment normal. Procedures 02/14 with right frontal bur hole and left subclavian line placement 02/15 with right occipital craniectomy with SDH evacuation 02/20 tracheostomy and PEG placement 02/25 left frontal temporoparietal decompressive craniotomy 03/06 PICC 03/29 bone flap replacement Date of Insertion: Apr 10, 2016 Date of Removal: Apr 22, 2016 Date of Insertion: Mar 06, 2016 Line: PICC Side: Right Location: Antecubital A/P Problem List: (1) Traumatic brain injury Status: Acute (2) Moderate protein-calorie malnutrition Status: Acute Assessment and Plan 65-year-old male with: 1. S/P traumatic brain injury: Initial head CT with right occipital bone fracture along with intraparenchymal hemorrhage, bilateral subdural hematomas, and subarachnoid hemorrhages. Patient is status post right frontal bur hole, right occipital craniectomy with SDH evacuation, PEG placement, left frontal temporoparietal decompressive craniotomy, and subsequent bone flap replacement. - Continue PT/speech therapy/occupational therapy - on Keppra bid for seizure prophylaxis- - neurosurgery signed off 2. Protein Calorie malnutrition: Dietitian following, will reconsult with good oral intake. Continue tube feeds for now. Encourage by mouth feeding. 3. HTN: The patient's heart rate has been around 60 on metoprolol. Decrease metoprolol from 3 times daily to twice daily. Continue hydralazine. Monitor and adjust BP meds as needed. 4. Urinary retention: Cuenca removed yesterday and patient passed voiding trial. 5. DVT prophylaxis: Lovenox subcutaneous. Discharge Planning The patient will need placement. Discussed the case management, SSI pending. Plan of care discussed with Dr. Santana. Attending Statement Patient seen by midlevel provider. I agree with above. Ernesto Huntley Apr 23, 2016 16:00 Dru Santana MD Apr 24, 2016 10:52
[2016-04-23 20:00] VITALS: BP 160/89; PULSE 77; RESP 20; TEMP 96.3; O2SAT 98
[2016-04-24] VITALS: BP 120/80; PULSE 60; RESP 20; TEMP 96.1; O2SAT 97
[2016-04-24 04:00] VITALS: BP 123/75; PULSE 67; RESP 18; TEMP 96.6; O2SAT 95
[2016-04-24] MEDS: hydrALAZINE HCL 25 MG TAB G-TUBE SCH ×3 (05:45→16:59)
[2016-04-24] MEDS: FREE WATER G-TUBE SCH ×3 (06:00→22:00)
[2016-04-24] MEDS: METHADONE HCL 10 MG/10 ML ORAL SOLUTION G-TUBE SCH ×2 (07:48→21:27)
[2016-04-24] MEDS: levETIRAcetam 500 MG/5 ML UDC PO SCH ×2 (07:48→21:27)
[2016-04-24] MEDS: METOPROLOL TARTRATE 50 MG TAB PEG SCH ×2 (07:48→21:28)
[2016-04-24] MEDS: LANSOPRAZOLE SOLUTAB 30 MG TAB NG SCH (07:49)
[2016-04-24] MEDS: SODIUM CHLORIDE 0.9% FLUSH 5 ML FLUSH IVF SCH ×4 (07:49→21:00)
[2016-04-24] MEDS: NYSTATIN 100,000 U/GM PWD 15 GM BTL TOPICAL SCH ×2 (07:49→21:49)
[2016-04-24] MEDS: DOCUSATE SODIUM 50 MG/SENNA 8.6 MG TAB G-TUBE SCH ×2 (07:49→21:28)
[2016-04-24 08:04] VITALS: BP 155/86; PULSE 75; RESP 20; TEMP 97.1; O2SAT 98
[2016-04-24] MEDS: ENOXAPARIN SODIUM 40 MG/0.4 ML SYRINGE SQ SCH (11:15)
--- NOTE | 2016-04-24 11:51 | HHI.PR ---
Subjective Remarks Discussed with RN, still awaiting dietitian reeval to see if patient needs continuous tube feeds. The patient has no complaints today. He states that he has been eating and voiding well. Objective Vitals Vital Signs Date Time Temp Pulse Resp B/P Pulse Ox O2 Delivery O2 Flow Rate FiO2 04/24/16 08:04 97.1 75 20 155/86 98 04/24/16 04:00 96.6 67 18 123/75 95 04/24/16 00:00 96.1 60 20 120/80 97 04/23/16 20:00 96.3 77 20 160/89 98 04/23/16 16:00 95.9 75 20 136/78 97 04/23/16 12:00 95.8 60 20 117/73 97 I/O 04/23/16 04/23/16 04/23/16 04/24/16 04/24/16 04/24/16 07:00 15:00 23:00 07:00 15:00 23:00 Intake Total 1380 ml 480 ml 480 ml Output Total 200 ml 700 ml 500 ml 450 ml Balance 1180 ml -220 ml -20 ml -450 ml Intake Oral 480 ml 480 ml Tube Feeding 1180 ml Tube Irrigant 200 ml Output Urine Total 200 ml 700 ml 500 ml 450 ml # Bowel Movements 0 0 1 Imaging Last Impressions Chest X-Ray 03/27/16 0000 Signed Impressions: Service Date/Time: Sunday, March 27, 2016 03:46 - CONCLUSION: No significant change mild parenchymal opacities of the left lung. Duy Skelton MD Liver Ultrasound 03/18/16 0000 Signed Impressions: Service Date/Time: Friday, March 18, 2016 17:01 - CONCLUSION: Ultrasound appearance of the liver and other right upper quadrant structures is within normal limits. Duy Skelton MD Head CT 03/09/16 0600 Signed Impressions: Service Date/Time: Wednesday, March 09, 2016 04:21 - CONCLUSION: 1. Mild improvement of the cerebral edema in the left cerebral hemisphere. 2. Otherwise , no other new or significant changes. Alli Jj MD Head CTA 02/16/16 0000 Signed Impressions: Service Date/Time: Tuesday, February 16, 2016 04:31 - CONCLUSION: I do not see an etiology for the patient's cerebellar hemorrhage on the right. Small supratentorial vessels in a 65-year-old. Etiology of this finding is not apparent. Trace subdural blood and subarachnoid blood persist over both convexities. Earl Gaitan MD FACR Cervical Spine CT 02/15/16 0445 Signed Impressions: Service Date/Time: January 04:57 - CONCLUSION: 1. Slight neural foramina compromise bilateral C4-5 and C5-6 in addition to bilateral lateral recess compromise at these levels and no significant thecal sac stenosis. 2. There is also slight neural foramina compromise right C3-C4. 3. Nonspecific lucencies in the spine may be osteoporotic changes, however myeloma is difficult to exclude. Ariadne Feng MD Objective Remarks GENERAL: Well-developed well-nourished. In no acute distress. SKIN: Warm and dry. No lesions noted. HEENT: Normocephalic. Pupils equal and round. Mucous membranes pink and moist. CARDIOVASCULAR: Regular rate and rhythm. No murmur appreciated. RESPIRATORY: No accessory muscle use. Clear to auscultation. Breath sounds equal bilaterally. GASTROINTESTINAL: Abdomen soft, non-tender, nondistended. Bowel sounds x4. PEG tube in place. MUSCULOSKELETAL: No obvious deformities. No clubbing or cyanosis. No edema. NEUROLOGICAL: Awake and alert. Moves upper and lower extremities spontaneously. Normal speech, occasionally nonsensical. PSYCHIATRIC: Appropriate mood and affect; insight and judgment normal. Procedures 02/14 with right frontal bur hole and left subclavian line placement 02/15 with right occipital craniectomy with SDH evacuation 02/20 tracheostomy and PEG placement 02/25 left frontal temporoparietal decompressive craniotomy 03/06 PICC / bone flap replacement Date of Insertion: Apr 10, 2016 Date of Removal: Apr 22, 2016 Date of Insertion: Mar 06, 2016 Line: PICC Side: Right Location: Antecubital A/P Problem List: (1) Traumatic brain injury Status: Acute (2) Moderate protein-calorie malnutrition Status: Acute Assessment and Plan 65-year-old male with: 1. S/P traumatic brain injury: Initial head CT with right occipital bone fracture along with intraparenchymal hemorrhage, bilateral subdural hematomas, and subarachnoid hemorrhages. Patient is status post right frontal bur hole, right occipital craniectomy with SDH evacuation, PEG placement, left frontal temporoparietal decompressive craniotomy, and subsequent bone flap replacement. - Continue PT/speech therapy/occupational therapy - on Keppra bid for seizure prophylaxis- - neurosurgery signed off 2. Protein Calorie malnutrition: Dietitian following, will reconsult with good oral intake, may be able to titrate to keep. Continue tube feeds for now. Encourage by mouth feeding. 3. HTN: Metoprolol decreased from 3 times daily to twice daily due to bradycardia. Will increase hydralazine from q8h to q6h to improve control. Monitor and adjust BP meds as needed. 4. Urinary retention: Cuenca removed and patient passed voiding trial. Now voiding spontaneously. 5. DVT prophylaxis: Lovenox subcutaneous. Discharge Planning The patient will need placement. Discussed the case management, SSI pending. Attending Statement Patient seen by midlevel provider. HTN still intermittently controlled. Will initiate BP control by JNC8 guidelines. DC hydralazine. Continue with Lisinopril. Clonidine as needed. Ernesto Huntley Apr 24, 2016 11:51 Dru Santana MD Apr 25, 2016 11:13
[2016-04-24 12:24] VITALS: BP 114/72; PULSE 67; RESP 18; TEMP 96.3; O2SAT 97
[2016-04-24 16:21] VITALS: BP 128/71; PULSE 68; RESP 18; TEMP 96.4; O2SAT 97
[2016-04-24 20:14] VITALS: BP 160/79; PULSE 81; RESP 20; TEMP 97.5; O2SAT 100
[2016-04-25 00:14] VITALS: BP 121/69; PULSE 68; RESP 20; TEMP 97.8; O2SAT 96
[2016-04-25 04:49] VITALS: BP 127/77; PULSE 58; RESP 20; TEMP 97.6; O2SAT 96
[2016-04-25] MEDS: FREE WATER G-TUBE SCH ×3 (06:00→20:19)
[2016-04-25] MEDS: hydrALAZINE HCL 25 MG TAB G-TUBE SCH ×2 (06:18)
[2016-04-25 08:00] VITALS: BP 143/75; PULSE 66; RESP 18; TEMP 98.2; O2SAT 96
[2016-04-25] MEDS: NYSTATIN 100,000 U/GM PWD 15 GM BTL TOPICAL SCH ×2 (09:00→20:19)
[2016-04-25] MEDS: levETIRAcetam 500 MG/5 ML UDC PO SCH ×2 (09:23→20:18)
[2016-04-25] MEDS: DOCUSATE SODIUM 50 MG/SENNA 8.6 MG TAB G-TUBE SCH ×2 (09:25→20:18)
[2016-04-25] MEDS: LANSOPRAZOLE SOLUTAB 30 MG TAB NG SCH (09:25)
[2016-04-25] MEDS: METHADONE HCL 10 MG/10 ML ORAL SOLUTION G-TUBE SCH ×2 (09:25→20:18)
[2016-04-25] MEDS: METOPROLOL TARTRATE 50 MG TAB PEG SCH ×2 (09:25→20:18)
[2016-04-25 12:00] VITALS: BP 126/71; PULSE 70; RESP 18; TEMP 97.5; O2SAT 95
[2016-04-25] MEDS: ENOXAPARIN SODIUM 40 MG/0.4 ML SYRINGE SQ SCH (13:00)
--- NOTE | 2016-04-25 13:57 | HHI.PR ---
Subjective Remarks The patient is seen sitting upright in bed watching TV. He has no specific medical complaints. He has been getting up to the bedside commode without difficulty. Denies any urinary retention or dysuria. He has been eating well, having regular BMs. He was evaluated by dukey rider who recommends nighttime tube feedings from [id number] (14hrs) with Jevity 1.5 at 100mls/hr. Objective Vitals Vital Signs Date Time Temp Pulse Resp B/P Pulse Ox O2 Delivery O2 Flow Rate FiO2 04/25/16 12:00 97.5 70 18 126/71 95 04/25/16 08:00 98.2 66 18 143/75 96 04/25/16 04:49 97.6 58 20 127/77 96 04/25/16 00:14 97.8 68 20 121/69 96 04/24/16 20:14 97.5 81 20 160/79 100 04/24/16 16:21 96.4 68 18 128/71 97 I/O 04/24/16 04/24/16 04/24/16 04/25/16 04/25/16 04/25/16 07:00 15:00 23:00 07:00 15:00 23:00 Intake Total 1610 ml 360 ml 240 ml 1510 ml Output Total 450 ml 300 ml 200 ml 600 ml Balance 1160 ml 60 ml 40 ml 910 ml Intake Oral 360 ml 240 ml Tube Feeding 1610 ml 1060 ml Tube Irrigant 450 ml Output Urine Total 450 ml 300 ml 200 ml 600 ml # Bowel Movements 1 1 1 Imaging Last Impressions Chest X-Ray 03/27/16 0000 Signed Impressions: Service Date/Time: Sunday, March 27, 2016 03:46 - CONCLUSION: No significant change mild parenchymal opacities of the left lung. Duy Skelton MD Liver Ultrasound 03/18/16 0000 Signed Impressions: Service Date/Time: Friday, March 18, 2016 17:01 - CONCLUSION: Ultrasound appearance of the liver and other right upper quadrant structures is within normal limits. Duy Skelton MD Head CT 03/09/16 0600 Signed Impressions: Service Date/Time: Wednesday, March 09, 2016 04:21 - CONCLUSION: 1. Mild improvement of the cerebral edema in the left cerebral hemisphere. 2. Otherwise , no other new or significant changes. Alli Jj MD Head CTA 5/27/16 0000 Signed Impressions: Service Date/Time: Tuesday, February 16, 2016 04:31 - CONCLUSION: I do not see an etiology for the patient's cerebellar hemorrhage on the right. Small supratentorial vessels in a 65-year-old. Etiology of this finding is not apparent. Trace subdural blood and subarachnoid blood persist over both convexities. Earl Gaitan MD FACR Cervical Spine CT 02/15/16 0445 Signed Impressions: Service Date/Time: January 04:57 - CONCLUSION: 1. Slight neural foramina compromise bilateral C4-5 and C5-6 in addition to bilateral lateral recess compromise at these levels and no significant thecal sac stenosis. 2. There is also slight neural foramina compromise right C3-C4. 3. Nonspecific lucencies in the spine may be osteoporotic changes, however myeloma is difficult to exclude. Ariadne Feng MD Objective Remarks GENERAL: Well-nourished, well-developed middle aged male patient in [facility]. SKIN: Warm and dry. No rash. HEAD: Normocephalic. Atraumatic. ENT: No nasal bleeding or discharge. Mucous membranes pink and moist. NECK: Supple. Trachea midline. CARDIOVASCULAR: Regular rate and rhythm. S1, S2 noted. No murmur appreciated. RESPIRATORY: No accessory muscle use. Clear to auscultation. Breath sounds equal bilaterally. GASTROINTESTINAL: Abdomen soft, non-tender, nondistended. Normoactive bowel sounds x4. PEG in place. GENITOURINARY: Cuenca catheter in place. MUSCULOSKELETAL: No obvious deformities. Extremities without clubbing, cyanosis , or edema. NEUROLOGICAL: Awake and alert, oriented to self. Speech not slurred, however often with expressive deficit/nonsensical speech. Procedures 02/14 with right frontal bur hole and left subclavian line placement 02/15 with right occipital craniectomy with SDH evacuation 02/20 tracheostomy and PEG placement 02/25 left frontal temporoparietal decompressive craniotomy 03/06 PICC 03/29 bone flap replacement Medications and IVs Current Medications Medications (Trade) Dose Ordered Sig/Rodney Route Start Time Stop Time Status Last Admin Miscellaneous Information 1 Q361D XX 02/15/16 04:00 (Dulcolax Supp) 10 mg DAILY PRN [place] 02/16/16 11:45 03/25/16 19:37 (Free Water) VOLUME: 200 ML Q8HR G-TUBE 03/18/16 14:00 04/25/16 13:00 (Prevacid Odt) 30 mg DAILY NG 03/21/16 09:00 04/25/16 09:25 (Levsin Liq) 0.125 mg Q4H PRN PEG 03/24/16 11:15 03/25/16 23:20 (Tylenol) 650 mg Q4H PRN PO 03/29/16 10:30 04/25/16 06:18 (Colace) 100 mg BID PRN GT 03/30/16 05:45 04/08/16 09:16 (Chelsea-Colace) 2 tab BID G-TUBE 03/30/16 09:00 04/25/16 09:25 (Lactulose Liq) 30 ml TID PRN G-TUBE 03/30/16 05:45 (Milk Of Magnesia Liq) 30 ml Q6H PRN G-TUBE 03/30/16 05:45 (Methadone Liq) 2.5 mg Q12HR G-TUBE 03/30/16 21:00 04/25/16 09:25 (Motrin Liq) 400 mg Q6H PRN PO 04/01/16 11:15 04/10/16 13:01 (Lovenox Inj) 40 mg Q24H SQ 04/01/16 12:00 04/25/16 13:00 (Mycostatin Powder) 1 applic Q12HR TOPICAL 04/03/16 21:00 04/25/16 09:00 (Keppra Liq) 1,000 mg Q12HR PO 04/15/16 21:00 04/25/16 09:23 (Lopressor) 50 mg Q12H PEG 04/23/16 21:00 04/25/16 09:25 (Prinivil) 10 mg DAILY PO 04/26/16 09:00 Urinary Catheter: No Date of Insertion: Apr 10, 2016 Date of Removal: Apr 22, 2016 Date of Insertion: Mar 06, 2016 Line: PICC Side: Right Location: Antecubital A/P Problem List: (1) Traumatic brain injury Status: Acute (2) Moderate protein-calorie malnutrition Status: Acute Assessment and Plan 65-year-old male with: 1. S/P traumatic brain injury: Initial head CT with right occipital bone fracture along with intraparenchymal hemorrhage, bilateral subdural hematomas, and subarachnoid hemorrhages. Patient is status post right frontal bur hole, right occipital craniectomy with SDH evacuation, PEG placement, left frontal temporoparietal decompressive craniotomy, and subsequent bone flap replacement. - Continue PT/speech therapy/occupational therapy - on Keppra bid for seizure prophylaxis- - neurosurgery signed off 2. Protein Calorie Malnutrition: Dietitian following, re-consulted as patient eating well, good po intake, [employer] recommends changing tube feeds to nighttime only from [id number] Jevity 1.5 at 100ml/hr. Encourage oral intake. 3. HTN: Metoprolol decreased from 3 times daily to twice daily due to bradycardia. Hydralazine switched to Lisinopril to be in line with JNC 8 guidelines. Will continue to monitor and adjust BP meds as needed. 4. Urinary retention: Cuenca removed and patient passed voiding trial. Now voiding spontaneously. Monitor. 5. DVT prophylaxis: Lovenox subcutaneous. Discharge Planning Needs placement, case management assisting, SSI pending. Attending Statement Patient seen by midlevel provider. I agree with above. Roas Rodriguez PA-C Apr 25, 2016 13:57 Dru Santana MD Apr 26, 2016 09:35
[2016-04-25 16:00] VITALS: BP 148/72; PULSE 76; RESP 19; TEMP 97.8; O2SAT 94
[2016-04-25 20:00] VITALS: BP 124/77; PULSE 68; RESP 18; TEMP 95.9; O2SAT 98
[2016-04-26] VITALS: BP 119/78; PULSE 66; RESP 18; TEMP 95.7; O2SAT 96
[2016-04-26 04:00] VITALS: BP 124/71; PULSE 66; RESP 18; TEMP 96.7; O2SAT 97
[2016-04-26] MEDS: FREE WATER G-TUBE SCH ×3 (06:00→20:54)
[2016-04-26 08:41] VITALS: BP 131/74; PULSE 69; RESP 20; TEMP 95.2; O2SAT 97
[2016-04-26] MEDS: NYSTATIN 100,000 U/GM PWD 15 GM BTL TOPICAL SCH ×2 (09:00→20:55)
[2016-04-26] MEDS: levETIRAcetam 500 MG/5 ML UDC PO SCH ×2 (09:06→20:49)
[2016-04-26] MEDS: METOPROLOL TARTRATE 50 MG TAB PEG SCH ×2 (09:07→20:54)
[2016-04-26] MEDS: LISINOPRIL 10 MG TAB PO SCH (09:07)
[2016-04-26] MEDS: DOCUSATE SODIUM 50 MG/SENNA 8.6 MG TAB G-TUBE SCH ×2 (09:07→20:49)
[2016-04-26] MEDS: LANSOPRAZOLE SOLUTAB 30 MG TAB NG SCH (09:07)
[2016-04-26] MEDS: METHADONE HCL 10 MG/10 ML ORAL SOLUTION G-TUBE SCH ×2 (09:07→20:48)
--- NOTE | 2016-04-26 11:32 | HHI.PR ---
Subjective Remarks The patient is seen sitting upright in bed, finishing up a therapy session. He has no medical complaints. Denies any pain. Still voiding spontaneously, no difficulty with ambulation to bedside commode. Reports a bowel movement this morning. Tolerated nighttime tube feeds but states he didn't eat much for breakfast because he was full. Vital signs stable. Objective Vitals Vital Signs Date Time Temp Pulse Resp B/P Pulse Ox O2 Delivery O2 Flow Rate FiO2 04/26/16 08:41 95.2 69 20 131/74 97 04/26/16 04:00 96.7 66 18 124/71 97 04/26/16 00:00 95.7 66 18 119/78 96 04/25/16 20:00 95.9 68 18 124/77 98 04/25/16 16:00 97.8 76 19 148/72 94 04/25/16 12:00 97.5 70 18 126/71 95 I/O 04/25/16 04/25/16 04/25/16 04/26/16 04/26/16 04/26/16 07:00 15:00 23:00 07:00 15:00 23:00 Intake Total 1510 ml 895 ml 1035 ml Output Total 600 ml 1000 ml Balance 910 ml -105 ml 1035 ml Intake Oral 240 ml IV Total 0 ml Tube Feeding 1060 ml 455 ml 635 ml Tube Irrigant 450 ml 400 ml Other 200 ml Output Urine Total 600 ml 1000 ml # Bowel Movements 1 Imaging Last Impressions Chest X-Ray 03/27/16 0000 Signed Impressions: Service Date/Time: Sunday, March 27, 2016 03:46 - CONCLUSION: No significant change mild parenchymal opacities of the left lung. Duy Skelton MD Liver Ultrasound 03/18/16 0000 Signed Impressions: Service Date/Time: Friday, March 18, 2016 17:01 - CONCLUSION: Ultrasound appearance of the liver and other right upper quadrant structures is within normal limits. Duy Skelton MD Head CT 03/09/16 0600 Signed Impressions: Service Date/Time: Wednesday, March 09, 2016 04:21 - CONCLUSION: 1. Mild improvement of the cerebral edema in the left cerebral hemisphere. 2. Otherwise , no other new or significant changes. Alli Jj MD Head CTA 02/16/16 0000 Signed Impressions: Service Date/Time: Tuesday, February 16, 2016 04:31 - CONCLUSION: I do not see an etiology for the patient's cerebellar hemorrhage on the right. Small supratentorial vessels in a 65-year-old. Etiology of this finding is not apparent. Trace subdural blood and subarachnoid blood persist over both convexities. Earl Gaitan MD FACR Cervical Spine CT 02/15/16 0445 Signed Impressions: Service Date/Time: January 04:57 - CONCLUSION: 1. Slight neural foramina compromise bilateral C4-5 and C5-6 in addition to bilateral lateral recess compromise at these levels and no significant thecal sac stenosis. 2. There is also slight neural foramina compromise right C3-C4. 3. Nonspecific lucencies in the spine may be osteoporotic changes, however myeloma is difficult to exclude. Ariadne Feng MD Objective Remarks GENERAL: Well-nourished, well-developed middle aged male patient in [facility]. SKIN: Warm and dry. No rash. HEAD: Normocephalic. Atraumatic. NECK: Supple. Trachea midline. CARDIOVASCULAR: Regular rate and rhythm. S1, S2 noted. No murmur appreciated. RESPIRATORY: No accessory muscle use. Clear to auscultation. Breath sounds equal bilaterally. GASTROINTESTINAL: Abdomen soft, non-tender, nondistended. Normoactive bowel sounds x4. PEG in place. GENITOURINARY: Cuenca catheter in place. MUSCULOSKELETAL: No obvious deformities. Extremities without clubbing, cyanosis , or edema. NEUROLOGICAL: Awake and alert, oriented to self. Speech not slurred, however often with expressive deficit/nonsensical speech. Procedures 02/14 with right frontal bur hole and left subclavian line placement 02/15 with right occipital craniectomy with SDH evacuation 02/20 tracheostomy and PEG placement 02/25 left frontal temporoparietal decompressive craniotomy 03/06 PICC 03/29 bone flap replacement Medications and IVs Current Medications Medications (Trade) Dose Ordered Sig/Rodney Route Start Time Stop Time Status Last Admin Miscellaneous Information 1 Q361D XX 02/15/16 04:00 (Dulcolax Supp) 10 mg DAILY PRN [place] 02/16/16 11:45 03/25/16 19:37 (Free Water) VOLUME: 200 ML Q8HR G-TUBE 03/18/16 14:00 04/26/16 06:00 (Prevacid Odt) 30 mg DAILY NG 03/21/16 09:00 04/26/16 09:07 (Levsin Liq) 0.125 mg Q4H PRN PEG 03/24/16 11:15 03/25/16 23:20 (Tylenol) 650 mg Q4H PRN PO 03/29/16 10:30 04/25/16 06:18 (Colace) 100 mg BID PRN GT 03/30/16 05:45 04/08/16 09:16 (Chelsea-Colace) 2 tab BID G-TUBE 03/30/16 09:00 04/26/16 09:07 (Lactulose Liq) 30 ml TID PRN G-TUBE 03/30/16 05:45 (Milk Of Magnesia Liq) 30 ml Q6H PRN G-TUBE 03/30/16 05:45 (Methadone Liq) 2.5 mg Q12HR G-TUBE 03/30/16 21:00 04/26/16 09:07 (Motrin Liq) 400 mg Q6H PRN PO 04/01/16 11:15 04/10/16 13:01 (Lovenox Inj) 40 mg Q24H SQ 04/01/16 12:00 04/25/16 13:00 (Mycostatin Powder) 1 applic Q12HR TOPICAL 04/03/16 21:00 04/25/16 20:19 (Keppra Liq) 1,000 mg Q12HR PO 04/15/16 21:00 04/26/16 09:06 (Lopressor) 50 mg Q12H PEG 04/23/16 21:00 04/26/16 09:07 (Prinivil) 10 mg DAILY PO 04/26/16 09:00 04/26/16 09:07 Urinary Catheter: No Date of Insertion: Apr 10, 2016 Date of Removal: Apr 22, 2016 Date of Insertion: Mar 06, 2016 Line: PICC Side: Right Location: Antecubital A/P Problem List: (1) Traumatic brain injury Status: Acute (2) Moderate protein-calorie malnutrition Status: Acute Assessment and Plan 65-year-old male with: 1. S/P traumatic brain injury: Initial head CT with right occipital bone fracture along with intraparenchymal hemorrhage, bilateral subdural hematomas, and subarachnoid hemorrhages. Patient is status post right frontal bur hole, right occipital craniectomy with SDH evacuation, PEG placement, left frontal temporoparietal decompressive craniotomy, and subsequent bone flap replacement. - Continue PT/speech therapy/occupational therapy - on Keppra bid for seizure prophylaxis- - neurosurgery signed off 2. Protein Calorie Malnutrition: Dietitian following, re-consulted as patient eating well, good po intake, on 04/25, ceramic engineering professor recommends changing tube feeds to nighttime only from 0480-2385 Jevity 1.5 at 100ml/hr. Encourage oral intake. 3. HTN: Continue Metoprolol. Hydralazine switched to Lisinopril to be in line with JNC 8 guidelines. Monitor and adjust BP meds as needed. 4. Urinary retention: Cuenca removed and patient passed voiding trial. Now voiding spontaneously. Monitor. 5. DVT prophylaxis: Lovenox subcutaneous. Discharge Planning Needs placement, case management assisting, SSI pending. Attending Statement Patient seen by midlevel provider. I agree with above. Rosa Rodriguez PA-C Apr 26, 2016 11:32 Dru Santana MD Apr 27, 2016 11:13
[2016-04-26 12:33] VITALS: BP 138/76; PULSE 58; RESP 20; TEMP 95.7; O2SAT 96
[2016-04-26] MEDS: ENOXAPARIN SODIUM 40 MG/0.4 ML SYRINGE SQ SCH (12:59)
[2016-04-26 16:14] VITALS: BP 100/65; PULSE 61; RESP 20; TEMP 95.9; O2SAT 96
[2016-04-26 20:04] VITALS: BP 113/67; PULSE 71; RESP 15; TEMP 96; O2SAT 96
[2016-04-27] VITALS: BP 102/61; PULSE 63; RESP 15; TEMP 96.1; O2SAT 99
[2016-04-27] MEDS: FREE WATER G-TUBE SCH ×2 (04:53→22:00)
[2016-04-27 05:13] VITALS: BP 88/51; PULSE 66; RESP 15; TEMP 96.3; O2SAT 97
[2016-04-27 08:51] VITALS: BP 107/70; PULSE 64; RESP 17; TEMP 95.6; O2SAT 99
[2016-04-27] MEDS: DOCUSATE SODIUM 50 MG/SENNA 8.6 MG TAB G-TUBE SCH ×2 (09:18→22:00)
[2016-04-27] MEDS: METHADONE HCL 10 MG/10 ML ORAL SOLUTION G-TUBE SCH ×2 (09:19→22:03)
[2016-04-27] MEDS: LISINOPRIL 10 MG TAB PO SCH (09:19)
[2016-04-27] MEDS: METOPROLOL TARTRATE 50 MG TAB PEG SCH (09:19)
[2016-04-27] MEDS: LANSOPRAZOLE SOLUTAB 30 MG TAB NG SCH (09:19)
[2016-04-27] MEDS: levETIRAcetam 500 MG/5 ML UDC PO SCH ×2 (09:19→22:00)
[2016-04-27] MEDS: ENOXAPARIN SODIUM 40 MG/0.4 ML SYRINGE SQ SCH (12:15)
[2016-04-27 12:28] VITALS: BP 99/63; PULSE 65; RESP 18; TEMP 95.7; O2SAT 96
--- NOTE | 2016-04-27 14:08 | HHI.PR ---
Subjective Remarks Patient was just getting back into bed after voiding at bedside commode. He states feeling generally well, however his appetite is decreased. He reports tolerating food trays 30-40%, however nursing reports he is eating less than that. Patient reinforced that we will continue with dietary recommendations for tube feeds at night with trays during the day. No acute concerns at this time. Objective Vitals Vital Signs Date Time Temp Pulse Resp B/P Pulse Ox O2 Delivery O2 Flow Rate FiO2 04/27/16 12:28 95.7 65 18 99/63 96 04/27/16 08:51 95.6 64 17 107/70 99 04/27/16 05:13 96.3 66 15 88/51 97 04/27/16 00:00 96.1 63 15 102/61 99 04/26/16 20:04 96.0 71 15 113/67 96 04/26/16 16:14 95.9 61 20 100/65 96 I/O 04/26/16 04/26/16 04/26/16 04/27/16 04/27/16 04/27/16 07:00 15:00 23:00 07:00 15:00 23:00 Intake Total 1035 ml 560 ml 1103 ml Balance 1035 ml 560 ml 1103 ml Intake Oral 360 ml Tube Feeding 635 ml 1103 ml Tube Irrigant 400 ml Other 200 ml # Voids 3 3 # Bowel Movements 1 1 Imaging Last Impressions Chest X-Ray 03/27/16 0000 Signed Impressions: Service Date/Time: Sunday, March 27, 2016 03:46 - CONCLUSION: No significant change mild parenchymal opacities of the left lung. Duy Skelton MD Liver Ultrasound 03/18/16 0000 Signed Impressions: Service Date/Time: Friday, March 18, 2016 17:01 - CONCLUSION: Ultrasound appearance of the liver and other right upper quadrant structures is within normal limits. Duy Skelton MD Head CT 03/09/16 0600 Signed Impressions: Service Date/Time: Wednesday, March 09, 2016 04:21 - CONCLUSION: 1. Mild improvement of the cerebral edema in the left cerebral hemisphere. 2. Otherwise , no other new or significant changes. Alli Jj MD Head CTA 02/16/16 0000 Signed Impressions: Service Date/Time: Tuesday, February 16, 2016 04:31 - CONCLUSION: I do not see an etiology for the patient's cerebellar hemorrhage on the right. Small supratentorial vessels in a 65-year-old. Etiology of this finding is not apparent. Trace subdural blood and subarachnoid blood persist over both convexities. Earl Gaitan MD FACR Cervical Spine CT 02/15/16 0445 Signed Impressions: Service Date/Time: January 04:57 - CONCLUSION: 1. Slight neural foramina compromise bilateral C4-5 and C5-6 in addition to bilateral lateral recess compromise at these levels and no significant thecal sac stenosis. 2. There is also slight neural foramina compromise right C3-C4. 3. Nonspecific lucencies in the spine may be osteoporotic changes, however myeloma is difficult to exclude. Ariadne Feng MD Objective Remarks GENERAL: Well-nourished, well-developed patient. Not in distress. SKIN: Warm and dry. No rash of generalized distribution noted. HEAD: Normocephalic. Atraumatic. ENT: No nasal bleeding or discharge. Mucous membranes pink and moist. NECK: Supple. Trachea midline. CARDIOVASCULAR: Regular rate and rhythm. No murmur gallop or rub. RESPIRATORY: No accessory muscle use. Clear to auscultation. Breath sounds equal bilaterally. GASTROINTESTINAL: Abdomen soft, non-tender, nondistended. Normoactive bowel sounds x4. PEG in place. GENITOURINARY: Patient voiding spontaneously. MUSCULOSKELETAL: No obvious deformities. Extremities without clubbing, cyanosis , or edema. NEUROLOGICAL: Awake and alert, oriented to self. Normal speech noted at this time. Procedures 02/14 with right frontal bur hole and left subclavian line placement 02/15 with right occipital craniectomy with SDH evacuation 02/20 tracheostomy and PEG placement 02/25 left frontal temporoparietal decompressive craniotomy 03/06 PICC 7/ bone flap replacement Date of Insertion: Apr 10, 2016 Date of Removal: Apr 22, 2016 Date of Insertion: Mar 06, 2016 Line: PICC Side: Right Location: Antecubital A/P Problem List: (1) Traumatic brain injury Status: Acute (2) Moderate protein-calorie malnutrition Status: Acute Assessment and Plan 65-year-old male with: 1. S/P traumatic brain injury: Initial head CT with right occipital bone fracture along with intraparenchymal hemorrhage, bilateral subdural hematomas, and subarachnoid hemorrhages. Patient is status post right frontal bur hole, right occipital craniectomy with SDH evacuation, PEG placement, left frontal temporoparietal decompressive craniotomy, and subsequent bone flap replacement. -Continue PT/ST/OT -Continue Keppra for seizure prophylaxis- - neurosurgery signed off 2. Protein Calorie Malnutrition: Appreciate dietary recommendations to continue Jevity 1.5 at 100 mL per hour from [id number] and regular trays during the day. Encouraged oral intake. 3. HTN: Continue lisinopril. Metoprolol decreased to 25 mg twice a day, is hypotensive at times. Will continue to monitor and adjust BP meds as needed. 4. Urinary retention: Cuenca removed and patient passed voiding trial. Now voiding spontaneously. Monitor. 5. DVT prophylaxis: Lovenox subcutaneous. Care discussed with patient, RN, Dr. Santana. Attending Statement Patient seen by midlevel provider. I agree with above. Check CBC in AM. Pat Mora Apr 27, 2016 14:08 Dru Santana MD Apr 27, 2016 21:32
[2016-04-27 16:04] VITALS: BP 113/60; PULSE 57; RESP 17; TEMP 95.6; O2SAT 98
[2016-04-27] MEDS: NYSTATIN 100,000 U/GM PWD 15 GM BTL TOPICAL SCH (21:00)
[2016-04-27] MEDS: METOPROLOL TARTRATE 25 MG TAB PEG SCH (22:00)
[2016-04-28] VITALS: BP 144/64; PULSE 86; RESP 20; TEMP 97.1; O2SAT 86
[2016-04-28] MEDS: FREE WATER G-TUBE SCH ×3 (06:00→22:00)
[2016-04-28 08:57] VITALS: BP 104/67; PULSE 70; RESP 18; TEMP 96; O2SAT 96
[2016-04-28] MEDS: METHADONE HCL 10 MG/10 ML ORAL SOLUTION G-TUBE SCH ×2 (09:05→21:02)
[2016-04-28] MEDS: levETIRAcetam 500 MG/5 ML UDC PO SCH ×2 (09:05→21:02)
[2016-04-28] MEDS: DOCUSATE SODIUM 50 MG/SENNA 8.6 MG TAB G-TUBE SCH (09:06)
[2016-04-28] MEDS: LISINOPRIL 10 MG TAB PO SCH (09:06)
[2016-04-28] MEDS: LANSOPRAZOLE SOLUTAB 30 MG TAB NG SCH (09:06)
[2016-04-28] MEDS: METOPROLOL TARTRATE 25 MG TAB PEG SCH (09:06)
[2016-04-28] MEDS: NYSTATIN 100,000 U/GM PWD 15 GM BTL TOPICAL SCH ×2 (09:14→21:00)
--- NOTE | 2016-04-28 10:54 | HHI.PR ---
Subjective Remarks Patient was seen resting in bed, no acute events overnight. Continues to report decreased appetite, encourage PO nutrition. Stated voiding and stooling. No other concerns. Objective Vitals Vital Signs Date Time Temp Pulse Resp B/P Pulse Ox O2 Delivery O2 Flow Rate FiO2 04/28/16 08:57 96.0 70 18 104/67 96 04/28/16 00:00 97.1 86 20 144/64 86 04/27/16 16:04 95.6 57 17 113/60 98 04/27/16 12:28 95.7 65 18 99/63 96 I/O 04/27/16 04/27/16 04/27/16 04/28/16 04/28/16 04/28/16 07:00 15:00 23:00 07:00 15:00 23:00 Intake Total 1103 ml 970 ml Output Total 325 ml Balance 1103 ml 970 ml -325 ml Intake Oral 970 ml Tube Feeding 1103 ml Output Urine Total 325 ml # Voids 4 # Bowel Movements 1 Imaging Last Impressions Chest X-Ray 03/27/16 0000 Signed Impressions: Service Date/Time: Sunday, March 27, 2016 03:46 - CONCLUSION: No significant change mild parenchymal opacities of the left lung. Duy Skelton MD Liver Ultrasound 03/18/16 0000 Signed Impressions: Service Date/Time: Friday, March 18, 2016 17:01 - CONCLUSION: Ultrasound appearance of the liver and other right upper quadrant structures is within normal limits. Duy Skelton MD Head CT 03/09/16 0600 Signed Impressions: Service Date/Time: Wednesday, March 09, 2016 04:21 - CONCLUSION: 1. Mild improvement of the cerebral edema in the left cerebral hemisphere. 2. Otherwise , no other new or significant changes. Alli Jj MD Head CTA 02/16/16 0000 Signed Impressions: Service Date/Time: Tuesday, February 16, 2016 04:31 - CONCLUSION: I do not see an etiology for the patient's cerebellar hemorrhage on the right. Small supratentorial vessels in a 65-year-old. Etiology of this finding is not apparent. Trace subdural blood and subarachnoid blood persist over both convexities. Earl Gaitan MD FACR Cervical Spine CT 02/15/16 0445 Signed Impressions: Service Date/Time: January 04:57 - CONCLUSION: 1. Slight neural foramina compromise bilateral C4-5 and C5-6 in addition to bilateral lateral recess compromise at these levels and no significant thecal sac stenosis. 2. There is also slight neural foramina compromise right C3-C4. 3. Nonspecific lucencies in the spine may be osteoporotic changes, however myeloma is difficult to exclude. Ariadne Feng MD Objective Remarks GENERAL: Well-nourished, well-developed patient. Not in distress. SKIN: Warm and dry. No rash of generalized distribution noted. HEAD: Normocephalic. Atraumatic. ENT: No nasal bleeding or discharge. Mucous membranes pink and moist. NECK: Supple. Trachea midline. CARDIOVASCULAR: Regular rate and rhythm. No murmur gallop or rub. RESPIRATORY: No accessory muscle use. Clear to auscultation. Breath sounds equal bilaterally. GASTROINTESTINAL: Abdomen soft, non-tender, nondistended. Normoactive bowel sounds x4. PEG in place. GENITOURINARY: Patient voiding spontaneously. MUSCULOSKELETAL: No obvious deformities. Extremities without clubbing, cyanosis , or edema. NEUROLOGICAL: Awake and alert, oriented to self. Normal speech noted at this time. Procedures 02/14 with right frontal bur hole and left subclavian line placement 02/15 with right occipital craniectomy with SDH evacuation 02/20 tracheostomy and PEG placement 02/25 left frontal temporoparietal decompressive craniotomy 03/06 PICC 03/29 bone flap replacement Date of Insertion: Apr 10, 2016 Date of Removal: Apr 22, 2016 Date of Insertion: Mar 06, 2016 Line: PICC Side: Right Location: Antecubital A/P Problem List: (1) Traumatic brain injury Status: Acute (2) Moderate protein-calorie malnutrition Status: Acute Assessment and Plan 65-year-old male with: 1. S/P traumatic brain injury: Initial head CT with right occipital bone fracture along with intraparenchymal hemorrhage, bilateral subdural hematomas, and subarachnoid hemorrhages. Patient is status post right frontal bur hole, right occipital craniectomy with SDH evacuation, PEG placement, left frontal temporoparietal decompressive craniotomy, and subsequent bone flap replacement. -Continue PT/ST/OT -Continue Keppra for seizure prophylaxis- - neurosurgery signed off 2. Protein Calorie Malnutrition: Appreciate dietary recommendations to continue Jevity 1.5 at 100 mL per hour from [id number] and regular trays during the day. Encouraged oral intake. 3. HTN: Continue lisinopril. Metoprolol decreased to 25 mg twice a day, is hypotensive at times, normalizing today. Will continue to monitor and adjust BP meds as needed. 4. Urinary retention: Cuenca removed and patient passed voiding trial. Now voiding spontaneously. Monitor. 5. DVT prophylaxis: Lovenox subcutaneous. Care discussed with patient, RN, Dr. Santana. Attending Statement Patient seen by midlevel provider. I agree with above. Pat Mora Apr 28, 2016 10:54 Dru Santana MD Apr 28, 2016 20:56
[2016-04-28] MEDS ORDERED: HYOSCYAMINE SOLN 0.125 MG/ML 15 ML BTL PO PRN (11:15)
[2016-04-28] MEDS ORDERED: MAGNESIUM HYDROXIDE SUSP 30 ML CUP PO PRN (11:45)
[2016-04-28 12:11] VITALS: BP 109/70; PULSE 58; RESP 17; TEMP 96.2; O2SAT 98
[2016-04-28 12:28] LABS: AUTOMATED NEUTROPHIL # 3.3 TH/MM3 (1.8-7.7); BASOPHIL % 0.6 % (0.0-2.0); EOSINOPHIL # 0.1 TH/MM3 (0-0.4); EOSINOPHIL % 2.1 % (0.0-4.0); HEMATOCRIT 40.1 % (39.0-51.0); HEMO FLAGS DIFF FINAL; LYMPH % 38.6 % (9.0-44.0); LYMPHOCYTE # 2.6 TH/MM3 (1.0-4.8); MEAN CELL VOLUME 87.7 FL (80.0-100.0); MEAN CORPUSCULAR HEMOGLOBIN 28.6 PG (27.0-34.0); MEAN CORPUSCULAR HGB CONC 32.6 % (32.0-36.0); MONO % 10.6 % (0.0-8.0); NEUT % 48.1 % (16.0-70.0); PLATELET COUNT 345 TH/MM3 (150-450); RED BLOOD COUNT 4.57 MIL/MM3 (4.50-5.90); RED CELL DISTRIBUTION WIDTH 15.1 % (11.6-17.2); WHITE BLOOD COUNT 6.8 TH/MM3 (4.0-11.0)
[2016-04-28] MEDS: ENOXAPARIN SODIUM 40 MG/0.4 ML SYRINGE SQ SCH (12:37)
[2016-04-28 17:15] VITALS: BP 107/73; PULSE 70; RESP 16; TEMP 96; O2SAT 96
[2016-04-28 20:00] VITALS: BP 130/81; PULSE 77; RESP 20; TEMP 97.4; O2SAT 99
[2016-04-28] MEDS: DOCUSATE SODIUM 50 MG/SENNA 8.6 MG TAB PO SCH (21:01)
[2016-04-28] MEDS: IBUPROFEN SUSP 100 MG/5 ML UDC PO PRN (21:03)
[2016-04-28] MEDS: METOPROLOL TARTRATE 25 MG TAB PO/GT SCH (21:03)
[2016-04-29] VITALS: BP 131/72; PULSE 65; RESP 20; TEMP 97.4; O2SAT 98
[2016-04-29 04:00] VITALS: BP 134/70; PULSE 61; RESP 18; TEMP 97.4; O2SAT 97
[2016-04-29] MEDS: FREE WATER G-TUBE SCH ×3 (06:00→22:00)
[2016-04-29 07:05] LABS: AUTOMATED NEUTROPHIL # 2.6 TH/MM3 (1.8-7.7); BASOPHIL % 0.6 % (0.0-2.0); EOSINOPHIL # 0.1 TH/MM3 (0-0.4); EOSINOPHIL % 2.4 % (0.0-4.0); HEMATOCRIT 38.1 % (39.0-51.0); HEMO FLAGS DIFF FINAL; LYMPH % 42.5 % (9.0-44.0); LYMPHOCYTE # 2.5 TH/MM3 (1.0-4.8); MEAN CORPUSCULAR HEMOGLOBIN 29.6 PG (27.0-34.0); MEAN CORPUSCULAR HGB CONC 33.3 % (32.0-36.0); MONO % 10.1 % (0.0-8.0); NEUT % 44.4 % (16.0-70.0); PLATELET COUNT 352 TH/MM3 (150-450); RED BLOOD COUNT 4.29 MIL/MM3 (4.50-5.90); RED CELL DISTRIBUTION WIDTH 15.2 % (11.6-17.2); WHITE BLOOD COUNT 5.9 TH/MM3 (4.0-11.0)
[2016-04-29 07:32] LABS: BICARBONATE 27.7 MEQ/L (21.0-32.0)
[2016-04-29 08:38] VITALS: BP 145/82; PULSE 65; RESP 17; TEMP 95.2; O2SAT 96
[2016-04-29] MEDS: NYSTATIN 100,000 U/GM PWD 15 GM BTL TOPICAL SCH ×2 (09:00→22:18)
--- NOTE | 2016-04-29 09:26 | HHI.PR ---
Subjective Remarks Patient sitting up eating breakfast, appears to seem at least half of this tragus are. Tolerating it well. Voiding and stooling. No additional complaints. Labs reviewed. Objective Vitals Vital Signs Date Time Temp Pulse Resp B/P Pulse Ox O2 Delivery O2 Flow Rate FiO2 04/29/16 08:38 95.2 65 17 145/82 96 04/29/16 04:00 97.4 61 18 134/70 97 04/29/16 00:00 97.4 65 20 131/72 98 04/28/16 20:00 97.4 77 20 130/81 99 04/28/16 17:15 96.0 70 16 107/73 96 04/28/16 12:11 96.2 58 17 109/70 98 I/O 04/28/16 04/28/16 04/28/16 04/29/16 04/29/16 04/29/16 07:00 15:00 23:00 07:00 15:00 23:00 Intake Total 120 ml 290 ml 360 ml 860 ml Output Total 325 ml Balance -325 ml 120 ml 290 ml 360 ml 860 ml Intake Oral 120 ml 360 ml Tube Feeding 190 ml 860 ml Other 100 ml Output Urine Total 325 ml # Voids 3 3 Result Diagram: 04/29/16 0621 04/29/16 0621 Imaging Last Impressions Chest X-Ray 03/27/16 0000 Signed Impressions: Service Date/Time: Sunday, March 27, 2016 03:46 - CONCLUSION: No significant change mild parenchymal opacities of the left lung. Duy Skelton MD Liver Ultrasound 03/18/16 0000 Signed Impressions: Service Date/Time: Friday, March 18, 2016 17:01 - CONCLUSION: Ultrasound appearance of the liver and other right upper quadrant structures is within normal limits. Duy Skelton MD Head CT 03/09/16 0600 Signed Impressions: Service Date/Time: Wednesday, March 09, 2016 04:21 - CONCLUSION: 1. Mild improvement of the cerebral edema in the left cerebral hemisphere. 2. Otherwise , no other new or significant changes. Alli Jj MD Head CTA 02/16/16 0000 Signed Impressions: Service Date/Time: Tuesday, February 16, 2016 04:31 - CONCLUSION: I do not see an etiology for the patient's cerebellar hemorrhage on the right. Small supratentorial vessels in a 65-year-old. Etiology of this finding is not apparent. Trace subdural blood and subarachnoid blood persist over both convexities. Earl Gaitan MD FACR Cervical Spine CT 02/15/16 0445 Signed Impressions: Service Date/Time: January 04:57 - CONCLUSION: 1. Slight neural foramina compromise bilateral C4-5 and C5-6 in addition to bilateral lateral recess compromise at these levels and no significant thecal sac stenosis. 2. There is also slight neural foramina compromise right C3-C4. 3. Nonspecific lucencies in the spine may be osteoporotic changes, however myeloma is difficult to exclude. Ariadne Feng MD Objective Remarks GENERAL: Well-nourished, well-developed patient. Not in distress. SKIN: Warm and dry. No rash of generalized distribution noted. HEAD: Normocephalic. Atraumatic. ENT: No nasal bleeding or discharge. Mucous membranes pink and moist. NECK: Supple. Trachea midline. CARDIOVASCULAR: Regular rate and rhythm. No murmur gallop or rub. RESPIRATORY: No accessory muscle use. Clear to auscultation. Breath sounds equal bilaterally. GASTROINTESTINAL: Abdomen soft, non-tender, nondistended. Normoactive bowel sounds x4. PEG in place. GENITOURINARY: Patient voiding spontaneously. MUSCULOSKELETAL: No obvious deformities. Extremities without clubbing, cyanosis , or edema. NEUROLOGICAL: Awake and alert, oriented to self. Normal speech noted at this time. Procedures 02/14 with right frontal bur hole and left subclavian line placement 02/15 with right occipital craniectomy with SDH evacuation 02/20 tracheostomy and PEG placement 02/25 left frontal temporoparietal decompressive craniotomy 03/06 PICC / bone flap replacement Date of Insertion: Apr 10, 2016 Date of Removal: Apr 22, 2016 Date of Insertion: Mar 06, 2016 Line: PICC Side: Right Location: Antecubital A/P Problem List: (1) Traumatic brain injury Status: Acute (2) Moderate protein-calorie malnutrition Status: Acute Assessment and Plan 65-year-old male with: 1. S/P traumatic brain injury: Initial head CT with right occipital bone fracture along with intraparenchymal hemorrhage, bilateral subdural hematomas, and subarachnoid hemorrhages. Patient is status post right frontal bur hole, right occipital craniectomy with SDH evacuation, PEG placement, left frontal temporoparietal decompressive craniotomy, and subsequent bone flap replacement. -Continue PT/ST/OT -Continue Keppra for seizure prophylaxis- - neurosurgery signed off 2. Protein Calorie Malnutrition: Appreciate dietary recommendations to continue Jevity 1.5 at 100 mL per hour from [id number] and regular trays during the day. Encouraged oral intake. 3. HTN: Continue lisinopril. Metoprolol decreased to 25 mg twice a day, is hypotensive at times, normalizing today. Will continue to monitor and adjust BP meds as needed. 4. Urinary retention: Cuenca removed and patient passed voiding trial. Now voiding spontaneously. Monitor. 5. DVT prophylaxis: Lovenox subcutaneous. Care discussed with patient, RN, Dr. Cameron. Pat Mora Apr 29, 2016 09:26
[2016-04-29] MEDS: METHADONE HCL 10 MG/10 ML ORAL SOLUTION G-TUBE SCH ×2 (09:52→22:17)
[2016-04-29] MEDS: levETIRAcetam 500 MG/5 ML UDC PO SCH ×2 (09:53→22:17)
[2016-04-29] MEDS: LANSOPRAZOLE SOLUTAB 30 MG TAB NG SCH (09:53)
[2016-04-29] MEDS: LISINOPRIL 10 MG TAB PO SCH (09:54)
[2016-04-29] MEDS: METOPROLOL TARTRATE 25 MG TAB PO/GT SCH ×2 (09:54→22:17)
[2016-04-29] MEDS: DOCUSATE SODIUM 50 MG/SENNA 8.6 MG TAB PO SCH ×2 (09:54→22:17)
[2016-04-29 12:00] VITALS: BP 146/67; PULSE 66; RESP 18; TEMP 96.1; O2SAT 98
[2016-04-29] MEDS: ENOXAPARIN SODIUM 40 MG/0.4 ML SYRINGE SQ SCH (12:03)
[2016-04-29 16:45] VITALS: BP 120/71; PULSE 69; RESP 18; TEMP 95.5; O2SAT 98
[2016-04-29 20:00] VITALS: BP 136/77; PULSE 80; RESP 17; TEMP 97; O2SAT 98
[2016-04-30 00:45] VITALS: BP 128/67; PULSE 82; RESP 18; TEMP 97.1; O2SAT 97
[2016-04-30 04:30] VITALS: BP 126/70; PULSE 84; RESP 17; TEMP 96.9; O2SAT 96
[2016-04-30] MEDS: FREE WATER G-TUBE SCH ×3 (05:20→21:44)
[2016-04-30] MEDS: LANSOPRAZOLE SOLUTAB 30 MG TAB NG SCH (07:58)
[2016-04-30] MEDS: levETIRAcetam 500 MG/5 ML UDC PO SCH ×2 (07:58→21:42)
[2016-04-30] MEDS: METHADONE HCL 10 MG/10 ML ORAL SOLUTION G-TUBE SCH ×2 (07:58→21:43)
[2016-04-30] MEDS: DOCUSATE SODIUM 50 MG/SENNA 8.6 MG TAB PO SCH ×2 (07:59→21:42)
[2016-04-30] MEDS: NYSTATIN 100,000 U/GM PWD 15 GM BTL TOPICAL SCH ×2 (07:59→21:43)
[2016-04-30] MEDS: METOPROLOL TARTRATE 25 MG TAB PO/GT SCH ×2 (07:59→21:42)
[2016-04-30] MEDS: LISINOPRIL 10 MG TAB PO SCH (07:59)
[2016-04-30 08:09] VITALS: BP 107/66; PULSE 99; RESP 18; TEMP 95.6; O2SAT 97
[2016-04-30 12:08] VITALS: BP 111/72; PULSE 62; RESP 16; TEMP 95.4; O2SAT 98
--- NOTE | 2016-04-30 12:22 | HHI.PR ---
Subjective Remarks Patient seen sitting upright in chair with HOTEL HOUSEKEEPER at bedside. The patient has no medical complaints. States he's getting up and moving around more. Has his shoes on today. Denies any pain. Vital signs stable. Objective Vitals Vital Signs Date Time Temp Pulse Resp B/P Pulse Ox O2 Delivery O2 Flow Rate FiO2 04/30/16 08:09 95.6 99 18 107/66 97 04/30/16 04:30 96.9 84 17 126/70 96 04/30/16 00:45 97.1 82 18 128/67 97 04/29/16 20:00 97.0 80 17 136/77 98 04/29/16 16:45 95.5 69 18 120/71 98 I/O 04/29/16 04/29/16 04/29/16 04/30/16 04/30/16 04/30/16 07:00 15:00 23:00 07:00 15:00 23:00 Intake Total 360 ml 1100 ml 812 ml 1750 ml Balance 360 ml 1100 ml 812 ml 1750 ml Intake Oral 360 ml 240 ml 450 ml 550 ml Tube Feeding 860 ml 162 ml 1000 ml Other 200 ml 200 ml # Voids 3 3 0 3 # Bowel Movements 1 0 0 Result Diagram: 04/29/16 0621 04/29/16 0621 Imaging Last Impressions Chest X-Ray 03/27/16 0000 Signed Impressions: Service Date/Time: Sunday, March 27, 2016 03:46 - CONCLUSION: No significant change mild parenchymal opacities of the left lung. Duy Skelton MD Liver Ultrasound 03/18/16 0000 Signed Impressions: Service Date/Time: Friday, March 18, 2016 17:01 - CONCLUSION: Ultrasound appearance of the liver and other right upper quadrant structures is within normal limits. Duy Skelton MD Head CT 03/09/16 0600 Signed Impressions: Service Date/Time: Wednesday, March 09, 2016 04:21 - CONCLUSION: 1. Mild improvement of the cerebral edema in the left cerebral hemisphere. 2. Otherwise , no other new or significant changes. Alli Jj MD Head CTA 02/16/16 0000 Signed Impressions: Service Date/Time: Tuesday, February 16, 2016 04:31 - CONCLUSION: I do not see an etiology for the patient's cerebellar hemorrhage on the right. Small supratentorial vessels in a 65-year-old. Etiology of this finding is not apparent. Trace subdural blood and subarachnoid blood persist over both convexities. Earl Gaitan MD FACR Cervical Spine CT 02/15/16 0445 Signed Impressions: Service Date/Time: January 04:57 - CONCLUSION: 1. Slight neural foramina compromise bilateral C4-5 and C5-6 in addition to bilateral lateral recess compromise at these levels and no significant thecal sac stenosis. 2. There is also slight neural foramina compromise right C3-C4. 3. Nonspecific lucencies in the spine may be osteoporotic changes, however myeloma is difficult to exclude. Ariadne Feng MD Objective Remarks GENERAL: Well-nourished, well-developed middle aged male patient in [facility]. SKIN: Warm and dry. No rash. HEAD: Normocephalic. Atraumatic. NECK: Supple. Trachea midline. CARDIOVASCULAR: Regular rate and rhythm. S1, S2 noted. No murmur appreciated. RESPIRATORY: No accessory muscle use. Clear to auscultation. Breath sounds equal bilaterally. GASTROINTESTINAL: Abdomen soft, non-tender, nondistended. Normoactive bowel sounds x4. PEG in place. MUSCULOSKELETAL: No obvious deformities. Extremities without clubbing, cyanosis , or edema. NEUROLOGICAL: Awake and alert, oriented to self. Speech not slurred, however often with expressive deficit/nonsensical speech. Procedures 02/14 with right frontal bur hole and left subclavian line placement 02/15 with right occipital craniectomy with SDH evacuation 02/20 tracheostomy and PEG placement 02/25 left frontal temporoparietal decompressive craniotomy 03/06 PICC 03/29 bone flap replacement Medications and IVs Current Medications Medications (Trade) Dose Ordered Sig/Rodney Route Start Time Stop Time Status Last Admin Miscellaneous Information 1 Q361D XX 02/15/16 04:00 (Dulcolax Supp) 10 mg DAILY PRN [place] 02/16/16 11:45 03/25/16 19:37 (Free Water) VOLUME: 200 ML Q8HR G-TUBE 03/18/16 14:00 04/30/16 05:20 (Prevacid Odt) 30 mg DAILY NG 03/21/16 09:00 04/30/16 07:58 (Tylenol) 650 mg Q4H PRN PO 03/29/16 10:30 04/25/16 06:18 (Lactulose Liq) 30 ml TID PRN G-TUBE 03/30/16 05:45 (Methadone Liq) 2.5 mg Q12HR G-TUBE 03/30/16 21:00 04/30/16 07:58 (Motrin Liq) 400 mg Q6H PRN PO 04/01/16 11:15 04/28/16 21:03 (Lovenox Inj) 40 mg Q24H SQ 04/01/16 12:00 04/29/16 12:03 (Mycostatin Powder) 1 applic Q12HR TOPICAL 04/03/16 21:00 04/30/16 07:59 (Keppra Liq) 1,000 mg Q12HR PO 04/15/16 21:00 04/30/16 07:58 (Prinivil) 10 mg DAILY PO 04/26/16 09:00 04/30/16 07:59 (Colace) 100 mg BID PRN PO 04/28/16 11:00 (Chelsea-Colace) 2 tab BID PO 04/28/16 21:00 04/30/16 07:59 (Levsin Liq) 0.125 mg Q4H PRN PO 04/28/16 11:15 (Milk Of Magnesia Liq) 30 ml Q6H PRN PO 04/28/16 11:45 (Lopressor) 25 mg Q12HR PO/GT 04/28/16 21:00 04/30/16 07:59 Urinary Catheter: No Date of Insertion: Apr 10, 2016 Date of Removal: Apr 22, 2016 Date of Insertion: Mar 06, 2016 Line: PICC Side: Right Location: Antecubital A/P Problem List: (1) Traumatic brain injury Status: Acute (2) Moderate protein-calorie malnutrition Status: Acute Assessment and Plan 65-year-old male with: 1. S/P traumatic brain injury: Initial head CT with right occipital bone fracture along with intraparenchymal hemorrhage, bilateral subdural hematomas, and subarachnoid hemorrhages. Patient is status post right frontal bur hole, right occipital craniectomy with SDH evacuation, PEG placement, left frontal temporoparietal decompressive craniotomy, and subsequent bone flap replacement. - Continue PT/speech therapy/occupational therapy - on Keppra bid for seizure prophylaxis- - neurosurgery signed off 2. Protein Calorie Malnutrition: Dietitian following, re-consulted as patient eating well, good po intake, on 04/25, diesel pile hammer operator recommends changing tube feeds to nighttime only from [id number] Jevity 1.5 at 100ml/hr. Encourage oral intake. 3. HTN: Metoprolol decreased from tid to bid due to bradycardia. Increased hydralazine from q8h to q6h to improve control. Monitor and adjust BP meds as needed. 4. Urinary retention: Cuenca removed and patient passed voiding trial. Now voiding spontaneously. Monitor. 5. DVT prophylaxis: Lovenox subcutaneous. Discharge Planning Needs placement, case management assisting, SSI pending. Rosa Rodriguez PA-C Apr 30, 2016 12:22 Stephany Cameron MD Apr 30, 2016 13:00
[2016-04-30] MEDS: ENOXAPARIN SODIUM 40 MG/0.4 ML SYRINGE SQ SCH (12:49)
[2016-04-30 16:18] VITALS: BP 102/65; PULSE 70; RESP 16; TEMP 95.9; O2SAT 99
[2016-04-30 20:00] VITALS: BP 146/71; PULSE 71; RESP 17; TEMP 97.1; O2SAT 97
[2016-05-01] VITALS: BP 135/64; PULSE 66; RESP 18; TEMP 96.9; O2SAT 98
[2016-05-01] MEDS: FREE WATER G-TUBE SCH ×3 (05:27→21:13)
[2016-05-01 08:13] VITALS: BP 115/72; PULSE 74; RESP 16; TEMP 97.1; O2SAT 97
[2016-05-01] MEDS: DOCUSATE SODIUM 50 MG/SENNA 8.6 MG TAB PO SCH ×2 (09:00→21:11)
[2016-05-01] MEDS: METOPROLOL TARTRATE 25 MG TAB PO/GT SCH ×2 (10:15→21:00)
[2016-05-01] MEDS: LANSOPRAZOLE SOLUTAB 30 MG TAB NG SCH (10:16)
[2016-05-01] MEDS: LISINOPRIL 10 MG TAB PO SCH (10:17)
[2016-05-01] MEDS: levETIRAcetam 500 MG/5 ML UDC PO SCH ×2 (10:18→21:12)
[2016-05-01] MEDS: METHADONE HCL 10 MG/10 ML ORAL SOLUTION G-TUBE SCH ×2 (10:19→21:14)
[2016-05-01] MEDS: NYSTATIN 100,000 U/GM PWD 15 GM BTL TOPICAL SCH ×2 (10:20→21:00)
--- NOTE | 2016-05-01 11:28 | HHI.PR ---
Subjective Remarks Patient seen sitting upright in bed with RN at bedside. He has no medical complaints today. He states he was sore earlier after therapy but denies any pain currently. He believes he's getting better overall. Denies any problems with urination/stooling. He states he is eating well. Still quite aphasic. Vital signs stable. Objective Vitals Vital Signs Date Time Temp Pulse Resp B/P Pulse Ox O2 Delivery O2 Flow Rate FiO2 05/01/16 08:13 97.1 74 16 115/72 97 05/01/16 00:00 96.9 66 18 135/64 98 04/30/16 20:00 97.1 71 17 146/71 97 04/30/16 16:18 95.9 70 16 102/65 99 04/30/16 12:08 95.4 62 16 111/72 98 I/O 04/30/16 04/30/16 04/30/16 05/01/16 05/01/16 05/01/16 07:00 15:00 23:00 07:00 15:00 23:00 Intake Total 1750 ml 1200 ml Output Total 0 ml Balance 1750 ml 1200 ml Intake Oral 550 ml 1200 ml Tube Feeding 1000 ml Other 200 ml Output Urine Total 0 ml # Voids 3 6 # Bowel Movements 0 2 Result Diagram: 04/29/16 0621 04/29/16 0621 Imaging Last Impressions Chest X-Ray 03/27/16 0000 Signed Impressions: Service Date/Time: Sunday, March 27, 2016 03:46 - CONCLUSION: No significant change mild parenchymal opacities of the left lung. Duy Skelton MD Liver Ultrasound 03/18/16 0000 Signed Impressions: Service Date/Time: Friday, March 18, 2016 17:01 - CONCLUSION: Ultrasound appearance of the liver and other right upper quadrant structures is within normal limits. Duy Skelton MD Head CT 03/09/16 0600 Signed Impressions: Service Date/Time: Wednesday, March 09, 2016 04:21 - CONCLUSION: 1. Mild improvement of the cerebral edema in the left cerebral hemisphere. 2. Otherwise , no other new or significant changes. Alli Jj MD Head CTA 02/16/16 0000 Signed Impressions: Service Date/Time: Tuesday, February 16, 2016 04:31 - CONCLUSION: I do not see an etiology for the patient's cerebellar hemorrhage on the right. Small supratentorial vessels in a 65-year-old. Etiology of this finding is not apparent. Trace subdural blood and subarachnoid blood persist over both convexities. Earl Gaitan MD FACR Cervical Spine CT 02/15/16 0445 Signed Impressions: Service Date/Time: January 04:57 - CONCLUSION: 1. Slight neural foramina compromise bilateral C4-5 and C5-6 in addition to bilateral lateral recess compromise at these levels and no significant thecal sac stenosis. 2. There is also slight neural foramina compromise right C3-C4. 3. Nonspecific lucencies in the spine may be osteoporotic changes, however myeloma is difficult to exclude. Ariadne Feng MD Objective Remarks GENERAL: Well-nourished, well-developed middle aged male patient in [facility]. SKIN: Warm and dry. No rash. HEAD: Normocephalic. Atraumatic. NECK: Supple. Trachea midline. CARDIOVASCULAR: Regular rate and rhythm. S1, S2 noted. No murmur appreciated. RESPIRATORY: No accessory muscle use. Clear to auscultation. Breath sounds equal bilaterally. GASTROINTESTINAL: Abdomen soft, non-tender, nondistended. Normoactive bowel sounds x4. PEG in place. MUSCULOSKELETAL: No obvious deformities. Extremities without clubbing, cyanosis , or edema. NEUROLOGICAL: Awake and alert, oriented to self. Speech not slurred, however often with expressive deficit/nonsensical speech. Procedures 02/14 with right frontal bur hole and left subclavian line placement 02/15 with right occipital craniectomy with SDH evacuation 02/20 tracheostomy and PEG placement 02/25 left frontal temporoparietal decompressive craniotomy 03/06 PICC 03/29 bone flap replacement Medications and IVs Current Medications Medications (Trade) Dose Ordered Sig/Rodney Route Start Time Stop Time Status Last Admin Miscellaneous Information 1 Q361D XX 02/15/16 04:00 (Dulcolax Supp) 10 mg DAILY PRN [place] 02/16/16 11:45 03/25/16 19:37 (Free Water) VOLUME: 200 ML Q8HR G-TUBE 03/18/16 14:00 05/01/16 05:27 (Prevacid Odt) 30 mg DAILY NG 6/30/16 09:00 05/01/16 10:16 (Tylenol) 650 mg Q4H PRN PO 03/29/16 10:30 04/25/16 06:18 (Lactulose Liq) 30 ml TID PRN G-TUBE 03/30/16 05:45 (Methadone Liq) 2.5 mg Q12HR G-TUBE 03/30/16 21:00 05/01/16 10:19 (Motrin Liq) 400 mg Q6H PRN PO 04/01/16 11:15 04/28/16 21:03 (Lovenox Inj) 40 mg Q24H SQ 04/01/16 12:00 04/30/16 12:49 (Mycostatin Powder) 1 applic Q12HR TOPICAL 04/03/16 21:00 05/01/16 10:20 (Keppra Liq) 1,000 mg Q12HR PO 04/15/16 21:00 05/01/16 10:18 (Prinivil) 10 mg DAILY PO 04/26/16 09:00 05/01/16 10:17 (Colace) 100 mg BID PRN PO 04/28/16 11:00 (Chelsea-Colace) 2 tab BID PO 04/28/16 21:00 04/30/16 21:42 (Levsin Liq) 0.125 mg Q4H PRN PO 04/28/16 11:15 (Milk Of Magnesia Liq) 30 ml Q6H PRN PO 04/28/16 11:45 (Lopressor) 25 mg Q12HR PO/GT 04/28/16 21:00 05/01/16 10:15 Urinary Catheter: No Date of Insertion: Apr 10, 2016 Date of Removal: Apr 22, 2016 Vascular Central Line Catheter: No Date of Insertion: Mar 06, 2016 Line: PICC Side: Right Location: Antecubital A/P Problem List: (1) Traumatic brain injury Status: Acute (2) Moderate protein-calorie malnutrition Status: Acute Assessment and Plan 65-year-old male with: 1. S/P traumatic brain injury: Initial head CT with right occipital bone fracture along with intraparenchymal hemorrhage, bilateral subdural hematomas, and subarachnoid hemorrhages. Patient is status post right frontal bur hole, right occipital craniectomy with SDH evacuation, PEG placement, left frontal temporoparietal decompressive craniotomy, and subsequent bone flap replacement. - Continue PT/speech therapy/occupational therapy - on Keppra bid for seizure prophylaxis- - neurosurgery signed off 2. Protein Calorie Malnutrition: Dietitian following, re-consulted as patient eating well, good po intake, on 04/25, goldsmith apprentice recommends changing tube feeds to nighttime only from [id number] Jevity 1.5 at 100ml/hr. Encourage oral intake. 3. HTN: Metoprolol decreased from tid to bid due to bradycardia. Increased hydralazine from q8h to q6h to improve control. Monitor and adjust BP meds as needed. 4. Urinary retention: Cuenca removed and patient passed voiding trial. Now voiding spontaneously. Monitor. 5. DVT prophylaxis: Lovenox subcutaneous. Discharge Planning Needs placement, case management assisting, SSI pending. Rosa Rodriguez PA-C May 01, 2016 11:28
[2016-05-01 12:09] VITALS: BP 122/76; PULSE 64; RESP 16; TEMP 95.7; O2SAT 97
[2016-05-01] MEDS: ENOXAPARIN SODIUM 40 MG/0.4 ML SYRINGE SQ SCH (12:21)
[2016-05-01 16:08] VITALS: BP 105/68; PULSE 60; RESP 16; TEMP 95.6; O2SAT 100
[2016-05-01 20:00] VITALS: BP 115/70; PULSE 69; RESP 18; TEMP 96.8; O2SAT 96
[2016-05-02] VITALS: BP 121/67; PULSE 74; RESP 18; TEMP 96.7; O2SAT 95
[2016-05-02 04:00] VITALS: BP 122/71; PULSE 77; RESP 18; TEMP 97; O2SAT 96
[2016-05-02] MEDS: FREE WATER G-TUBE SCH ×3 (05:17→22:00)
[2016-05-02] MEDS: METHADONE HCL 10 MG/10 ML ORAL SOLUTION G-TUBE SCH ×2 (08:32→22:52)
[2016-05-02] MEDS: levETIRAcetam 500 MG/5 ML UDC PO SCH ×2 (08:32→22:52)
[2016-05-02] MEDS: NYSTATIN 100,000 U/GM PWD 15 GM BTL TOPICAL SCH ×2 (08:33→21:00)
[2016-05-02] MEDS: LANSOPRAZOLE SOLUTAB 30 MG TAB NG SCH (08:33)
[2016-05-02] MEDS: LISINOPRIL 10 MG TAB PO SCH (08:33)
[2016-05-02] MEDS: METOPROLOL TARTRATE 25 MG TAB PO/GT SCH ×2 (08:33→22:53)
[2016-05-02] MEDS: DOCUSATE SODIUM 50 MG/SENNA 8.6 MG TAB PO SCH ×2 (08:33→22:52)
[2016-05-02 08:58] VITALS: BP 108/64; PULSE 76; RESP 20; TEMP 97.6; O2SAT 95
--- NOTE | 2016-05-02 11:53 | HHI.PR ---
Subjective Remarks The patient has no complaints today. He has been tolerating nighttime tube feeds. He denies any fevers or chills. He states that he's been improving much with physical therapy. He states he still has problems finding words. Discussed with RN, no acute complaints. Objective Vitals Vital Signs Date Time Temp Pulse Resp B/P Pulse Ox O2 Delivery O2 Flow Rate FiO2 05/02/16 08:58 97.6 76 20 108/64 95 05/02/16 04:00 97.0 77 18 122/71 96 05/02/16 00:00 96.7 74 18 121/67 95 05/01/16 20:00 96.8 69 18 115/70 96 05/01/16 16:08 95.6 60 16 105/68 100 05/01/16 12:09 95.7 64 16 122/76 97 I/O 05/01/16 05/01/16 05/01/16 05/02/16 05/02/16 05/02/16 07:00 15:00 23:00 07:00 15:00 23:00 Intake Total 200 ml 1080 ml 240 ml Balance 200 ml 1080 ml 240 ml Intake Oral 1080 ml 240 ml Other 200 ml # Voids 4 1 # Bowel Movements 0 Result Diagram: 04/29/1662004/29/16620 Objective Remarks GENERAL: Well-developed well-nourished. In no acute distress. SKIN: Warm and dry. No lesions noted. HEENT: Normocephalic. Pupils equal and round. Mucous membranes pink and moist. CARDIOVASCULAR: Regular rate and rhythm. No murmur appreciated. RESPIRATORY: No accessory muscle use. Clear to auscultation. Breath sounds equal bilaterally. GASTROINTESTINAL: Abdomen soft, non-tender, nondistended. Bowel sounds x4. PEG tube in place. MUSCULOSKELETAL: No obvious deformities. No clubbing or cyanosis. No edema. NEUROLOGICAL: Awake and alert. Moves upper and lower extremities spontaneously. Normal speech, occasionally nonsensical. PSYCHIATRIC: Appropriate mood and affect; insight and judgment normal. Procedures 02/14 with right frontal bur hole and left subclavian line placement 02/15 with right occipital craniectomy with SDH evacuation 02/20 tracheostomy and PEG placement 02/25 left frontal temporoparietal decompressive craniotomy 03/06 PICC 03/29 bone flap replacement Date of Insertion: Apr 10, 2016 Date of Removal: Apr 22, 2016 Date of Insertion: Mar 06, 2016 Line: PICC Side: Right Location: Antecubital A/P Problem List: (1) Traumatic brain injury Status: Acute (2) Moderate protein-calorie malnutrition Status: Acute Assessment and Plan 65-year-old male with: 1. S/P traumatic brain injury: Initial head CT with right occipital bone fracture along with intraparenchymal hemorrhage, bilateral subdural hematomas, and subarachnoid hemorrhages. Patient is status post right frontal bur hole, right occipital craniectomy with SDH evacuation, PEG placement, left frontal temporoparietal decompressive craniotomy, and subsequent bone flap replacement. - Continue PT/speech therapy/occupational therapy - on Keppra bid for seizure prophylaxis- - neurosurgery signed off 2. Protein Calorie malnutrition: Dietitian following. Continue tube feeds at night with tray. Encourage by mouth feeding. 3. HTN: Medications recently adjusted with good effect. Currently on metoprolol 25 mg twice daily and lisinopril 10 mg once daily, continue. Monitor and adjust BP meds as needed. 4. Urinary retention: Cuenca removed and patient passed voiding trial. Now voiding spontaneously. Monitor. 5. DVT prophylaxis: Lovenox subcutaneous. Discharge Planning The patient will need placement. Case management assisting, SSI pending. Ernesto Huntley May 02, 2016 11:53 Stephany Cameron MD May 02, 2016 13:47
[2016-05-02 12:00] VITALS: BP 117/68; PULSE 62; RESP 18; TEMP 96; O2SAT 97
[2016-05-02] MEDS: ENOXAPARIN SODIUM 40 MG/0.4 ML SYRINGE SQ SCH (12:27)
[2016-05-02 16:00] VITALS: BP 123/78; PULSE 66; RESP 18; TEMP 97.2; O2SAT 100
[2016-05-02 20:00] VITALS: BP 137/73; PULSE 70; RESP 20; TEMP 95; O2SAT 98
[2016-05-03] VITALS: BP 109/65; PULSE 78; RESP 19; TEMP 96.3; O2SAT 98
[2016-05-03 04:00] VITALS: BP 100/57; PULSE 66; RESP 19; TEMP 97; O2SAT 96
[2016-05-03] MEDS: FREE WATER G-TUBE SCH ×3 (06:00→20:55)
[2016-05-03] MEDS: METOPROLOL TARTRATE 25 MG TAB PO/GT SCH ×2 (07:48→20:54)
[2016-05-03] MEDS: DOCUSATE SODIUM 50 MG/SENNA 8.6 MG TAB PO SCH ×2 (07:48→20:54)
[2016-05-03] MEDS: LISINOPRIL 10 MG TAB PO SCH (07:48)
[2016-05-03] MEDS: LANSOPRAZOLE SOLUTAB 30 MG TAB NG SCH (07:48)
[2016-05-03] MEDS: METHADONE HCL 10 MG/10 ML ORAL SOLUTION G-TUBE SCH ×2 (07:48→20:54)
[2016-05-03] MEDS: levETIRAcetam 500 MG/5 ML UDC PO SCH ×2 (07:48→20:54)
[2016-05-03] MEDS: NYSTATIN 100,000 U/GM PWD 15 GM BTL TOPICAL SCH ×2 (07:49→20:56)
[2016-05-03 09:17] VITALS: BP 106/63; PULSE 78; RESP 16; TEMP 95.5; O2SAT 96
[2016-05-03] MEDS: ENOXAPARIN SODIUM 40 MG/0.4 ML SYRINGE SQ SCH (11:33)
--- NOTE | 2016-05-03 11:40 | HHI.PR ---
Subjective Remarks The patient has no acute complaints today. He states he slept well last night. He wants his tube feeds disconnected so that he can get out of bed. Objective Vitals Vital Signs Date Time Temp Pulse Resp B/P Pulse Ox O2 Delivery O2 Flow Rate FiO2 05/03/16 09:17 95.5 78 16 106/63 96 05/03/16 04:00 97.0 66 19 100/57 96 05/03/16 00:00 96.3 78 19 109/65 98 05/02/16 20:00 95.0 70 20 137/73 98 05/02/16 16:00 97.2 66 18 123/78 100 05/02/16 12:00 96.0 62 18 117/68 97 I/O 05/02/16 05/02/16 05/02/16 05/03/16 05/03/16 05/03/16 07:00 15:00 23:00 07:00 15:00 23:00 Intake Total 240 ml 480 ml 0 ml Output Total 3 ml 250 ml Balance 240 ml 477 ml -250 ml Intake Oral 240 ml 480 ml 0 ml Output Urine Total 3 ml 250 ml # Voids 1 2 # Bowel Movements 1 Result Diagram: 04/29/1662004/29/1621 Objective Remarks GENERAL: Well-developed well-nourished. In no acute distress. SKIN: Warm and dry. No lesions noted. HEENT: Normocephalic. Pupils equal and round. Mucous membranes pink and moist. CARDIOVASCULAR: Regular rate and rhythm. No murmur appreciated. RESPIRATORY: No accessory muscle use. Clear to auscultation. Breath sounds equal bilaterally. GASTROINTESTINAL: Abdomen soft, non-tender, nondistended. Bowel sounds x4. PEG tube in place. MUSCULOSKELETAL: No obvious deformities. No clubbing or cyanosis. No edema. NEUROLOGICAL: Awake and alert. Moves upper and lower extremities spontaneously. Normal speech, occasionally nonsensical. PSYCHIATRIC: Appropriate mood and affect; insight and judgment normal. Procedures 02/14 with right frontal bur hole and left subclavian line placement 02/15 with right occipital craniectomy with SDH evacuation 02/20 tracheostomy and PEG placement 02/25 left frontal temporoparietal decompressive craniotomy 03/06 PICC 03/29 bone flap replacement Date of Insertion: Apr 10, 2016 Date of Removal: Apr 22, 2016 Date of Insertion: Mar 06, 2016 Line: PICC Side: Right Location: Antecubital A/P Problem List: (1) Traumatic brain injury Status: Acute (2) Moderate protein-calorie malnutrition Status: Acute Assessment and Plan 65-year-old male with: 1. S/P traumatic brain injury: Initial head CT with right occipital bone fracture along with intraparenchymal hemorrhage, bilateral subdural hematomas, and subarachnoid hemorrhages. Patient is status post right frontal bur hole, right occipital craniectomy with SDH evacuation, PEG placement, left frontal temporoparietal decompressive craniotomy, and subsequent bone flap replacement. - Continue PT/speech therapy/occupational therapy - on Keppra bid for seizure prophylaxis- - neurosurgery signed off 2. Protein Calorie malnutrition: Dietitian following. Continue tube feeds at night with tray. Encourage by mouth feeding. 3. HTN: Medications recently adjusted with good effect. Currently on metoprolol 25 mg twice daily and lisinopril 10 mg once daily, continue. Monitor and adjust BP meds as needed. 4. Urinary retention: Cuenca removed and patient passed voiding trial. Now voiding spontaneously. Monitor. 5. DVT prophylaxis: Lovenox subcutaneous. Discharge Planning The patient will need placement. Case management assisting, SSI pending. Ernesto Huntley May 03, 2016 11:40 Stephany Cameron MD May 03, 2016 13:03
[2016-05-03 12:12] VITALS: BP 128/76; PULSE 79; RESP 20; TEMP 96.3; O2SAT 99
[2016-05-03 17:21] VITALS: BP 136/73; PULSE 79; RESP 16; TEMP 96.3; O2SAT 99
[2016-05-03 20:26] VITALS: BP 135/68; PULSE 84; RESP 18; TEMP 95.4; O2SAT 97
[2016-05-04] VITALS (7 sets, daily range): BP systolic 94–166; BP diastolic 51–88; PULSE 60–90; RESP 18; TEMP 95.5–97.5; O2SAT 95–97
[2016-05-04] MEDS: FREE WATER G-TUBE SCH ×3 (06:00→21:12)
[2016-05-04] MEDS: levETIRAcetam 500 MG/5 ML UDC PO SCH ×2 (08:56→21:11)
[2016-05-04] MEDS: DOCUSATE SODIUM 50 MG/SENNA 8.6 MG TAB PO SCH ×2 (08:57→21:00)
[2016-05-04] MEDS: METOPROLOL TARTRATE 25 MG TAB PO/GT SCH ×2 (08:57→21:12)
[2016-05-04] MEDS: LANSOPRAZOLE SOLUTAB 30 MG TAB NG SCH (08:57)
[2016-05-04] MEDS: METHADONE HCL 10 MG/10 ML ORAL SOLUTION G-TUBE SCH ×2 (08:57→21:11)
[2016-05-04] MEDS: LISINOPRIL 10 MG TAB PO SCH (08:57)
[2016-05-04] MEDS: NYSTATIN 100,000 U/GM PWD 15 GM BTL TOPICAL SCH ×2 (09:00→21:00)
--- NOTE | 2016-05-04 10:16 | HHI.PR ---
Subjective Remarks Follow up for TBI with malnutrition and aphasia. The patient is seen sitting upright in bed watching tv. He has no medical complaints today. Finished breakfast, states he ate about half of his meal. Still aphasic. Denies any urinary or bowel difficulties. Vital signs stable. Objective Vitals Vital Signs Date Time Temp Pulse Resp B/P Pulse Ox O2 Delivery O2 Flow Rate FiO2 05/04/16 08:07 95.6 90 18 138/78 96 05/04/16 04:00 95.5 71 18 110/71 96 05/04/16 00:53 127/78 05/04/16 00:32 96.8 60 18 94/51 96 05/03/16 20:26 95.4 84 18 135/68 97 05/03/16 17:21 96.3 79 16 136/73 99 05/03/16 12:12 96.3 79 20 128/76 99 I/O 05/03/16 05/03/16 05/03/16 05/04/16 05/04/16 05/04/16 07:00 15:00 23:00 07:00 15:00 23:00 Intake Total 0 ml 120 ml Output Total 250 ml Balance -250 ml 120 ml Intake Oral 0 ml 120 ml Output Urine Total 250 ml # Voids 2 3 1 # Bowel Movements 1 Imaging Last Impressions Chest X-Ray 03/27/16 0000 Signed Impressions: Service Date/Time: Sunday, March 27, 2016 03:46 - CONCLUSION: No significant change mild parenchymal opacities of the left lung. Duy Skelton MD Liver Ultrasound 03/18/16 0000 Signed Impressions: Service Date/Time: Friday, March 18, 2016 17:01 - CONCLUSION: Ultrasound appearance of the liver and other right upper quadrant structures is within normal limits. Duy Skelton MD Head CT 03/09/16 0600 Signed Impressions: Service Date/Time: Wednesday, March 09, 2016 04:21 - CONCLUSION: 1. Mild improvement of the cerebral edema in the left cerebral hemisphere. 2. Otherwise , no other new or significant changes. Alli Jj MD Head CTA 02/16/16 0000 Signed Impressions: Service Date/Time: Tuesday, February 16, 2016 04:31 - CONCLUSION: I do not see an etiology for the patient's cerebellar hemorrhage on the right. Small supratentorial vessels in a 65-year-old. Etiology of this finding is not apparent. Trace subdural blood and subarachnoid blood persist over both convexities. Earl Gaitan MD FACR Cervical Spine CT 02/15/16 0445 Signed Impressions: Service Date/Time: January 04:57 - CONCLUSION: 1. Slight neural foramina compromise bilateral C4-5 and C5-6 in addition to bilateral lateral recess compromise at these levels and no significant thecal sac stenosis. 2. There is also slight neural foramina compromise right C3-C4. 3. Nonspecific lucencies in the spine may be osteoporotic changes, however myeloma is difficult to exclude. Ariadne Feng MD Objective Remarks GENERAL: Well-nourished, well-developed middle aged male patient in [facility]. SKIN: Warm and dry. No rash. HEAD: Normocephalic. Atraumatic. NECK: Supple. Trachea midline. CARDIOVASCULAR: Regular rate and rhythm. S1, S2 noted. No murmur appreciated. RESPIRATORY: No accessory muscle use. Clear to auscultation. Breath sounds equal bilaterally. GASTROINTESTINAL: Abdomen soft, non-tender, nondistended. Normoactive bowel sounds x4. PEG in place. MUSCULOSKELETAL: No obvious deformities. Extremities without clubbing, cyanosis , or edema. NEUROLOGICAL: Awake and alert, oriented to self. Speech not slurred, however often with expressive deficit/nonsensical speech. Procedures 02/14 with right frontal bur hole and left subclavian line placement 02/15 with right occipital craniectomy with SDH evacuation 02/20 tracheostomy and PEG placement 02/25 left frontal temporoparietal decompressive craniotomy 03/06 PICC 03/29 bone flap replacement Medications and IVs Current Medications Medications (Trade) Dose Ordered Sig/Rodney Route Start Time Stop Time Status Last Admin Miscellaneous Information 1 Q361D XX 02/15/16 04:00 (Dulcolax Supp) 10 mg DAILY PRN [place] 02/16/16 11:45 03/25/16 19:37 (Free Water) VOLUME: 200 ML Q8HR G-TUBE 03/18/16 14:00 05/04/16 06:00 (Prevacid Odt) 30 mg DAILY NG 03/21/16 09:00 05/04/16 08:57 (Tylenol) 650 mg Q4H PRN PO 03/29/16 10:30 04/25/16 06:18 (Lactulose Liq) 30 ml TID PRN G-TUBE 03/30/16 05:45 (Methadone Liq) 2.5 mg Q12HR G-TUBE 03/30/16 21:00 05/04/16 08:57 (Motrin Liq) 400 mg Q6H PRN PO 04/01/16 11:15 04/28/16 21:03 (Lovenox Inj) 40 mg Q24H SQ 04/01/16 12:00 05/03/16 11:33 (Mycostatin Powder) 1 applic Q12HR TOPICAL 04/03/16 21:00 05/03/16 20:56 (Keppra Liq) 1,000 mg Q12HR PO 04/15/16 21:00 05/04/16 08:56 (Prinivil) 10 mg DAILY PO 04/26/16 09:00 05/04/16 08:57 (Colace) 100 mg BID PRN PO 04/28/16 11:00 (Chelsea-Colace) 2 tab BID PO 04/28/16 21:00 05/04/16 08:57 (Levsin Liq) 0.125 mg Q4H PRN PO 04/28/16 11:15 (Milk Of Magnesia Liq) 30 ml Q6H PRN PO 04/28/16 11:45 (Lopressor) 25 mg Q12HR PO/GT 04/28/16 21:00 05/04/16 08:57 Urinary Catheter: No Date of Insertion: Apr 10, 2016 Date of Removal: Apr 22, 2016 Vascular Central Line Catheter: No Date of Insertion: Mar 06, 2016 Line: PICC Side: Right Location: Antecubital A/P Problem List: (1) Traumatic brain injury Status: Acute (2) Moderate protein-calorie malnutrition Status: Acute Assessment and Plan 65-year-old male with: 1. S/P traumatic brain injury: Initial head CT with right occipital bone fracture along with intraparenchymal hemorrhage, bilateral subdural hematomas, and subarachnoid hemorrhages. Patient is status post right frontal bur hole, right occipital craniectomy with SDH evacuation, PEG placement, left frontal temporoparietal decompressive craniotomy, and subsequent bone flap replacement. - Continue PT/speech therapy/occupational therapy - on Keppra bid for seizure prophylaxis- - neurosurgery signed off 2. Protein Calorie malnutrition: Dietitian following. Continue night time tube feeds with tray during the day. Encourage oral intake. 3. HTN: Medications recently adjusted with good effect. Currently on metoprolol 25 mg bid and lisinopril 10 mg daily, continue. Monitor and adjust BP meds as needed. 4. Urinary retention: Cuenca removed and patient passed voiding trial. Now voiding spontaneously. Monitor. 5. DVT prophylaxis: Lovenox subcutaneous. Discharge Planning Needs placement, case management assisting, SSI pending. Attending Statement The exam, history, and the medical decision-making described in the above note were completed with the assistance of the mid-level provider. I reviewed and agree with the findings presented. I attest that I had a [id number] encounter with the patient on the same day, and personally performed and documented my assessment and findings in the medical record. Patient's without complaints. Improved with physical therapy. No new events overnight Rosa Rodriguez PA-C May 04, 2016 10:16 Stephany Cameron MD May 04, 2016 11:22
[2016-05-04] MEDS: ENOXAPARIN SODIUM 40 MG/0.4 ML SYRINGE SQ SCH (12:24)
[2016-05-05] VITALS (7 sets, daily range): BP systolic 97–134; BP diastolic 57–70; PULSE 59–72; RESP 17–18; TEMP 95.4–98.3; O2SAT 95–99
[2016-05-05] MEDS: FREE WATER G-TUBE SCH ×3 (06:00→21:17)
[2016-05-05] MEDS: LANSOPRAZOLE SOLUTAB 30 MG TAB NG SCH (08:07)
[2016-05-05] MEDS: DOCUSATE SODIUM 50 MG/SENNA 8.6 MG TAB PO SCH ×2 (08:07→21:17)
[2016-05-05] MEDS: LISINOPRIL 10 MG TAB PO SCH (08:07)
[2016-05-05] MEDS: METOPROLOL TARTRATE 25 MG TAB PO/GT SCH ×2 (08:07→21:17)
[2016-05-05] MEDS: NYSTATIN 100,000 U/GM PWD 15 GM BTL TOPICAL SCH ×2 (08:08→21:00)
[2016-05-05] MEDS: METHADONE HCL 10 MG/10 ML ORAL SOLUTION G-TUBE SCH ×2 (08:08→21:17)
[2016-05-05] MEDS: levETIRAcetam 500 MG/5 ML UDC PO SCH ×2 (08:08→21:16)
--- NOTE | 2016-05-05 09:50 | HHI.PR ---
Subjective Remarks Follow up for TBI with malnutrition and aphasia. The patient is seen sitting upright in bed. Has no acute complaints. Ate 1/3 of his breakfast. He does not drink his Ensure shakes. Vital signs stable. Objective Vitals Vital Signs Date Time Temp Pulse Resp B/P Pulse Ox O2 Delivery O2 Flow Rate FiO2 05/05/16 08:10 95.4 66 17 101/64 96 05/05/16 04:00 98.2 59 18 97/57 95 05/05/16 00:00 98.3 72 18 134/70 99 05/04/16 20:00 97.5 84 18 137/88 97 05/04/16 16:00 95.9 70 18 166/81 95 05/04/16 12:00 95.5 89 18 118/70 96 I/O 05/04/16 05/04/16 05/04/16 05/05/16 05/05/16 05/05/16 07:00 15:00 23:00 07:00 15:00 23:00 Intake Total 1000 ml Output Total 700 ml Balance 1000 ml -700 ml Intake Oral 540 ml Other 460 ml Output Urine Total 700 ml # Voids 1 3 6 # Bowel Movements 1 Imaging Last Impressions Chest X-Ray 03/27/16 0000 Signed Impressions: Service Date/Time: Sunday, March 27, 2016 03:46 - CONCLUSION: No significant change mild parenchymal opacities of the left lung. Duy Skelton MD Liver Ultrasound 03/18/16 0000 Signed Impressions: Service Date/Time: Friday, March 18, 2016 17:01 - CONCLUSION: Ultrasound appearance of the liver and other right upper quadrant structures is within normal limits. Duy Skelton MD Head CT 03/09/16 0600 Signed Impressions: Service Date/Time: Wednesday, March 09, 2016 04:21 - CONCLUSION: 1. Mild improvement of the cerebral edema in the left cerebral hemisphere. 2. Otherwise , no other new or significant changes. Alli Jj MD Head CTA 02/16/16 0000 Signed Impressions: Service Date/Time: Tuesday, February 16, 2016 04:31 - CONCLUSION: I do not see an etiology for the patient's cerebellar hemorrhage on the right. Small supratentorial vessels in a 65-year-old. Etiology of this finding is not apparent. Trace subdural blood and subarachnoid blood persist over both convexities. Earl Gaitan MD FACR Cervical Spine CT 02/15/16 0445 Signed Impressions: Service Date/Time: January 04:57 - CONCLUSION: 1. Slight neural foramina compromise bilateral C4-5 and C5-6 in addition to bilateral lateral recess compromise at these levels and no significant thecal sac stenosis. 2. There is also slight neural foramina compromise right C3-C4. 3. Nonspecific lucencies in the spine may be osteoporotic changes, however myeloma is difficult to exclude. Ariadne Feng MD Objective Remarks GENERAL: Well-nourished, well-developed middle aged male patient in [facility]. SKIN: Warm and dry. No rash. HEAD: Normocephalic. Atraumatic. NECK: Supple. Trachea midline. CARDIOVASCULAR: Regular rate and rhythm. S1, S2 noted. No murmur appreciated. RESPIRATORY: No accessory muscle use. Clear to auscultation. Breath sounds equal bilaterally. GASTROINTESTINAL: Abdomen soft, non-tender, nondistended. Normoactive bowel sounds x4. PEG in place. MUSCULOSKELETAL: No obvious deformities. Extremities without clubbing, cyanosis , or edema. NEUROLOGICAL: Awake and alert, oriented to self. Speech not slurred, however often with expressive deficit/nonsensical speech. Moves all extremities spontaneously, right sided upper and lower extremity 3-4/5 strength, left upper and lower extremity 5/5 strength. Procedures 02/14 with right frontal bur hole and left subclavian line placement 02/15 with right occipital craniectomy with SDH evacuation 02/20 tracheostomy and PEG placement 02/25 left frontal temporoparietal decompressive craniotomy 03/06 PICC 03/29 bone flap replacement Medications and IVs Current Medications Medications (Trade) Dose Ordered Sig/Rodney Route Start Time Stop Time Status Last Admin Miscellaneous Information 1 Q361D XX 02/15/16 04:00 (Dulcolax Supp) 10 mg DAILY PRN [place] 02/16/16 11:45 03/25/16 19:37 (Free Water) VOLUME: 200 ML Q8HR G-TUBE 03/18/16 14:00 05/04/16 21:12 (Prevacid Odt) 30 mg DAILY NG 03/21/16 09:00 05/05/16 08:07 (Tylenol) 650 mg Q4H PRN PO 03/29/16 10:30 04/25/16 06:18 (Lactulose Liq) 30 ml TID PRN G-TUBE 03/30/16 05:45 (Methadone Liq) 2.5 mg Q12HR G-TUBE 03/30/16 21:00 05/05/16 08:08 (Motrin Liq) 400 mg Q6H PRN PO 04/01/16 11:15 04/28/16 21:03 (Lovenox Inj) 40 mg Q24H SQ 04/01/16 12:00 05/04/16 12:24 (Mycostatin Powder) 1 applic Q12HR TOPICAL 04/03/16 21:00 05/05/16 08:08 (Keppra Liq) 1,000 mg Q12HR PO 04/15/16 21:00 05/05/16 08:08 (Prinivil) 10 mg DAILY PO 04/26/16 09:00 05/05/16 08:07 (Colace) 100 mg BID PRN PO 04/28/16 11:00 (Chelsea-Colace) 2 tab BID PO 04/28/16 21:00 05/05/16 08:07 (Levsin Liq) 0.125 mg Q4H PRN PO 04/28/16 11:15 (Milk Of Magnesia Liq) 30 ml Q6H PRN PO 04/28/16 11:45 (Lopressor) 25 mg Q12HR PO/GT 04/28/16 21:00 05/05/16 08:07 Urinary Catheter: No Date of Insertion: Apr 10, 2016 Date of Removal: Apr 22, 2016 Vascular Central Line Catheter: No Date of Insertion: Mar 06, 2016 Line: PICC Side: Right Location: Antecubital A/P Problem List: (1) Traumatic brain injury Status: Acute (2) Moderate protein-calorie malnutrition Status: Acute Assessment and Plan 65-year-old male with: 1. S/P traumatic brain injury: Initial head CT with right occipital bone fracture along with intraparenchymal hemorrhage, bilateral subdural hematomas, and subarachnoid hemorrhages. Patient is status post right frontal bur hole, right occipital craniectomy with SDH evacuation, PEG placement, left frontal temporoparietal decompressive craniotomy, and subsequent bone flap replacement. - Continue PT/speech therapy/occupational therapy - on Keppra bid for seizure prophylaxis- - neurosurgery signed off 2. Protein Calorie malnutrition: Dietitian following. Continue night time tube feeds with tray during the day. Encourage oral intake. 3. HTN: Medications recently adjusted with good effect. Currently on metoprolol 25 mg bid and lisinopril 10 mg daily, continue. Monitor and adjust BP meds as needed. 4. Urinary retention: Cuenca removed and patient passed voiding trial. Now voiding spontaneously. Monitor. 5. DVT prophylaxis: Lovenox subcutaneous. Discharge Planning Needs placement, case management assisting, SSI pending. Rosa Rodriguez PA-C May 05, 2016 09:50
[2016-05-05] MEDS: ENOXAPARIN SODIUM 40 MG/0.4 ML SYRINGE SQ SCH (12:02)
[2016-05-06 00:25] VITALS: BP 103/58; PULSE 69; RESP 20; TEMP 96.7; O2SAT 96
[2016-05-06 04:25] VITALS: BP 99/61; PULSE 60; RESP 20; TEMP 96.6; O2SAT 97
[2016-05-06] MEDS: FREE WATER G-TUBE SCH ×3 (06:00→22:00)
[2016-05-06] MEDS: DOCUSATE SODIUM 50 MG/SENNA 8.6 MG TAB PO SCH ×2 (08:25→22:08)
[2016-05-06] MEDS: levETIRAcetam 500 MG/5 ML UDC PO SCH ×2 (08:25→22:08)
[2016-05-06] MEDS: LISINOPRIL 10 MG TAB PO SCH (08:26)
[2016-05-06] MEDS: METHADONE HCL 10 MG/10 ML ORAL SOLUTION G-TUBE SCH ×2 (08:26→22:09)
[2016-05-06] MEDS: METOPROLOL TARTRATE 25 MG TAB PO/GT SCH ×2 (08:26→22:08)
[2016-05-06] MEDS: LANSOPRAZOLE SOLUTAB 30 MG TAB NG SCH (08:26)
[2016-05-06] MEDS: NYSTATIN 100,000 U/GM PWD 15 GM BTL TOPICAL SCH ×2 (08:26→21:00)
[2016-05-06 08:47] VITALS: BP 138/79; PULSE 70; RESP 18; TEMP 96.5; O2SAT 97
[2016-05-06] MEDS: ENOXAPARIN SODIUM 40 MG/0.4 ML SYRINGE SQ SCH (11:13)
--- NOTE | 2016-05-06 12:06 | HHI.PR ---
Subjective Remarks Follow-up for TBI with aphasia and malnutrition. Discussed with RN, no acute issues/complaints. The patient is upset because someone told him to eat more than he wanted to earlier today. He states he likes eating soup and protein shakes. He says he is not getting tube feeds at night. He has no other complaints at this time. He is able to ambulate with assistance. Objective Vitals Vital Signs Date Time Temp Pulse Resp B/P Pulse Ox O2 Delivery O2 Flow Rate FiO2 05/06/16 09:40 18 05/06/16 08:47 96.5 70 18 138/79 97 05/06/16 04:25 96.6 60 20 99/61 97 05/06/16 00:25 96.7 69 20 103/58 96 05/05/16 20:35 96.3 66 17 108/69 97 05/05/16 16:00 95.5 63 18 113/69 97 I/O 05/05/16 05/05/16 05/05/16 05/06/16 05/06/16 05/06/16 07:00 15:00 23:00 07:00 15:00 23:00 Intake Total 700 ml 380 ml 380 ml Output Total 800 ml 300 ml Balance -100 ml 80 ml 380 ml Intake Oral 300 ml 380 ml 380 ml Other 400 ml Output Urine Total 800 ml 300 ml # Voids 6 3 2 2 # Bowel Movements 0 0 0 Objective Remarks GENERAL: Well-developed well-nourished. In no acute distress. SKIN: Warm and dry. No lesions noted. HEENT: Normocephalic. Pupils equal and round. Mucous membranes pink and moist. CARDIOVASCULAR: Regular rate and rhythm. No murmur appreciated. RESPIRATORY: No accessory muscle use. Clear to auscultation. Breath sounds equal bilaterally. GASTROINTESTINAL: Abdomen soft, non-tender, nondistended. Bowel sounds x4. PEG tube in place. MUSCULOSKELETAL: No obvious deformities. No clubbing or cyanosis. No edema. NEUROLOGICAL: Awake and alert. Moves upper and lower extremities spontaneously. Normal speech, occasionally nonsensical. PSYCHIATRIC: Appropriate mood and affect; insight and judgment fair. Procedures 02/14 with right frontal bur hole and left subclavian line placement 02/15 with right occipital craniectomy with SDH evacuation 02/20 tracheostomy and PEG placement 02/25 left frontal temporoparietal decompressive craniotomy 03/06 PICC 03/29 bone flap replacement Date of Insertion: Apr 10, 2016 Date of Removal: Apr 22, 2016 Date of Insertion: Mar 06, 2016 Line: PICC Side: Right Location: Antecubital A/P Problem List: (1) Traumatic brain injury Status: Acute (2) Moderate protein-calorie malnutrition Status: Acute Assessment and Plan 65-year-old male with: 1. S/P traumatic brain injury: Initial head CT with right occipital bone fracture along with intraparenchymal hemorrhage, bilateral subdural hematomas, and subarachnoid hemorrhages. Patient is status post right frontal bur hole, right occipital craniectomy with SDH evacuation, PEG placement, left frontal temporoparietal decompressive craniotomy, and subsequent bone flap replacement. - Continue PT/speech therapy/occupational therapy - on Keppra bid for seizure prophylaxis- - neurosurgery signed off 2. Protein Calorie malnutrition: Dietitian following. Continue tube feeds at night with tray. Encourage by mouth feeding. 3. HTN: Medications recently adjusted with good effect. Currently on metoprolol 25 mg twice daily and lisinopril 10 mg once daily, continue. Monitor and adjust BP meds as needed. 4. Urinary retention: Cuenca removed and patient passed voiding trial. Now voiding spontaneously. Monitor. 5. DVT prophylaxis: Lovenox subcutaneous. Discharge Planning The patient will need placement. Case management assisting, SSI pending. Ernesto Huntley May 06, 2016 12:06 Stephany Cameron MD May 06, 2016 12:50
[2016-05-06 12:57] VITALS: BP 129/79; PULSE 61; RESP 18; TEMP 96.5; O2SAT 98
[2016-05-06 18:49] VITALS: BP 131/59; PULSE 63; RESP 18; TEMP 96.4
[2016-05-06 20:00] VITALS: BP 116/76; PULSE 74; RESP 20; TEMP 96.5; O2SAT 96
[2016-05-07] VITALS: BP 102/61; PULSE 62; RESP 20; TEMP 96.6; O2SAT 96
[2016-05-07] MEDS: FREE WATER G-TUBE SCH (06:00)
[2016-05-07 06:28] VITALS: BP 106/56; PULSE 61; RESP 18; TEMP 96.8; O2SAT 96
[2016-05-07] MEDS: levETIRAcetam 500 MG/5 ML UDC PO SCH ×2 (07:23→20:31)
[2016-05-07] MEDS: METOPROLOL TARTRATE 25 MG TAB PO/GT SCH ×2 (07:24→20:30)
[2016-05-07] MEDS: LISINOPRIL 10 MG TAB PO SCH (07:24)
[2016-05-07] MEDS: LANSOPRAZOLE SOLUTAB 30 MG TAB NG SCH (07:24)
[2016-05-07] MEDS: METHADONE HCL 10 MG/10 ML ORAL SOLUTION G-TUBE SCH ×2 (07:24→20:31)
[2016-05-07] MEDS: NYSTATIN 100,000 U/GM PWD 15 GM BTL TOPICAL SCH (07:25)
[2016-05-07] MEDS: DOCUSATE SODIUM 50 MG/SENNA 8.6 MG TAB PO SCH (07:30)
[2016-05-07 08:46] VITALS: BP 129/70; PULSE 70; RESP 18; TEMP 96.3; O2SAT 97
--- NOTE | 2016-05-07 11:23 | HHI.PR ---
Subjective Remarks This patient is a 65-year-old gentleman who was admitted to our facility 02/14 status post right brain injury. Patient had bilateral subdural hematomas and subarachnoid hemorrhages. He has had significant cognitive impairment although his physical stamina has increased greatly. 05/07 Doing well. Still quite a bit of expressive aphasia. Tolerating PT and OT well Objective Vitals Vital Signs Date Time Temp Pulse Resp B/P Pulse Ox O2 Delivery O2 Flow Rate FiO2 05/07/16 08:51 18 05/07/16 08:46 96.3 70 18 129/70 97 05/07/16 06:28 96.8 61 18 106/56 96 05/07/16 00:00 96.6 62 20 102/61 96 05/06/16 20:00 96.5 74 20 116/76 96 05/06/16 18:49 96.4 63 18 131/59 05/06/16 12:57 96.5 61 18 129/79 98 I/O 05/06/16 05/06/16 05/06/16 05/07/16 05/07/16 05/07/16 07:00 15:00 23:00 07:00 15:00 23:00 Intake Total 380 ml 400 ml 120 ml Balance 380 ml 400 ml 120 ml Intake Oral 380 ml 400 ml 120 ml # Voids 2 3 4 3 # Bowel Movements 0 1 0 0 Objective Remarks GENERAL: This is a well-nourished, well-developed patient, calm, status post left cranial surgery with jacinto in place CARDIOVASCULAR: Regular rate and rhythm without murmurs, gallops, or rubs. RESPIRATORY: Clear to auscultation. Breath sounds equal bilaterally. No wheezes , rales, or rhonchi. GASTROINTESTINAL: PEG tube Place, Abdomen soft, non-tender, nondistended. Normal active bowel sounds MUSCULOSKELETAL: Right extremity stiffness and edema, otherwise moves all 4 extremities NEURO: Alert & Oriented to person, significant expressive aphasia but attempts to answer questions Procedures 02/14 with right frontal bur hole and left subclavian line placement 02/15 with right occipital craniectomy with SDH evacuation 02/20 tracheostomy and PEG placement 02/25 left frontal temporoparietal decompressive craniotomy 03/06 PICC 03/29 bone flap replacement Date of Insertion: Apr 10, 2016 Date of Removal: Apr 22, 2016 Date of Insertion: Mar 06, 2016 Line: PICC Side: Right Location: Antecubital A/P Problem List: (1) HTN (hypertension) Status: Acute Plan: Continue with metoprolol and lisinopril, controlled (2) Traumatic brain injury Status: Acute Plan: Continue Keppra for seizure prophylaxis Continue with PT/OT/ST Assessment and Plan Per OT needs 24 h supervision at discharge No pain or source for nursing home or home health care There is a friend he may stay with however patient still needs quite a bit of supervision Discharge Planning DVT prophylaxis with Lovenox daily/ increase ambulation Stephany Cameron MD May 07, 2016 11:23
[2016-05-07] MEDS: ENOXAPARIN SODIUM 40 MG/0.4 ML SYRINGE SQ SCH (11:38)
[2016-05-07 12:59] VITALS: BP 137/67; PULSE 79; RESP 18; TEMP 96.6; O2SAT 97
[2016-05-07 16:36] VITALS: BP 116/71; PULSE 64; RESP 18; TEMP 96; O2SAT 98
[2016-05-07 20:27] VITALS: BP 118/65; PULSE 67; RESP 18; TEMP 96.5; O2SAT 94
[2016-05-08] VITALS (7 sets, daily range): BP systolic 98–129; BP diastolic 58–78; PULSE 63–71; RESP 18–20; TEMP 96.2–98.6; O2SAT 95–100
[2016-05-08] MEDS: levETIRAcetam 500 MG/5 ML UDC PO SCH ×2 (08:26→21:19)
[2016-05-08] MEDS: METHADONE HCL 10 MG/10 ML ORAL SOLUTION G-TUBE SCH ×2 (08:26→21:20)
[2016-05-08] MEDS: METOPROLOL TARTRATE 25 MG TAB PO/GT SCH ×2 (09:58→21:20)
[2016-05-08] MEDS: LISINOPRIL 10 MG TAB PO SCH (09:59)
--- NOTE | 2016-05-08 10:06 | HHI.PR ---
Subjective Remarks Reports he is trying to eat as much as he can. He is drinking clear liquids and also eating some soft diet. He has no concerns overnight. Objective Vitals Vital Signs Date Time Temp Pulse Resp B/P Pulse Ox O2 Delivery O2 Flow Rate FiO2 05/08/16 09:55 70 112/73 05/08/16 09:32 97.4 70 20 96 05/08/16 04:39 96.2 67 18 98/58 95 05/08/16 00:27 98.6 71 18 103/62 96 05/07/16 20:27 96.5 67 18 118/65 94 05/07/16 16:36 96.0 64 18 116/71 98 05/07/16 12:59 96.6 79 18 137/67 97 I/O 05/07/16 05/07/16 05/07/16 05/08/16 05/08/16 05/08/16 07:00 15:00 23:00 07:00 15:00 23:00 Intake Total 810 ml 600 ml 1750 ml Output Total 600 ml Balance 210 ml 600 ml 1750 ml Intake Oral 810 ml 600 ml Tube Feeding 1700 ml Tube Irrigant 50 ml Output Urine Total 600 ml # Voids 3 2 2 # Bowel Movements 0 1 0 Objective Remarks GENERAL: This is a well-nourished, well-developed patient, in no apparent distress. CARDIOVASCULAR: Regular rate and rhythm RESPIRATORY: Clear to auscultation. Breath sounds equal bilaterally. No wheezes , rales, or rhonchi. GASTROINTESTINAL: Abdomen soft, non-tender, nondistended. Normal active bowel sounds, G-tube in place MUSCULOSKELETAL: Extremities without clubbing, cyanosis, or edema. NEURO: Alert & Oriented x 2to person, place. Moves all ext x4 Procedures 02/14 with right frontal bur hole and left subclavian line placement 02/15 with right occipital craniectomy with SDH evacuation 02/20 tracheostomy and PEG placement 02/25 left frontal temporoparietal decompressive craniotomy 03/06 PICC 03/29 bone flap replacement Date of Insertion: Apr 10, 2016 Date of Removal: Apr 22, 2016 Date of Insertion: Mar 06, 2016 Line: PICC Side: Right Location: Antecubital A/P Problem List: (1) HTN (hypertension) Status: Acute (2) Traumatic brain injury Status: Acute Assessment and Plan 65-year-old male with: 1. S/P traumatic brain injury: Initial head CT with right occipital bone fracture along with intraparenchymal hemorrhage, bilateral subdural hematomas, and subarachnoid hemorrhages. Patient is status post right frontal bur hole, right occipital craniectomy with SDH evacuation, PEG placement, left frontal temporoparietal decompressive craniotomy, and subsequent bone flap replacement. - Continue PT/speech therapy/occupational therapy, rehabilitation - on Keppra bid for seizure prophylaxis- - neurosurgery service signed off 2. Protein Calorie malnutrition: Dietitian following, evaluated yesterday with taking 70-100% oral meeting low end of nutrition needs. Continue tube feeds at night with anibal, currently on Jevity 1.5 at night and encourage mechanical soft diet during the day. Encourage by mouth feeding. 3. HTN, chronic: Medications recently adjusted with good effect. Currently on metoprolol 25 mg twice daily and lisinopril 10 mg once daily, continue. 4. DVT prophylaxis: Lovenox . Discharge Planning Per OT needs 24 h supervision at discharge No payor source for custodial or home health care There is a friend he may stay with however patient still needs quite a bit of supervision, he will need to also taper off of night tube feedings Lakshmi Iglesias MD May 08, 2016 10:06
[2016-05-08] MEDS: ENOXAPARIN SODIUM 40 MG/0.4 ML SYRINGE SQ SCH (13:17)
[2016-05-09] VITALS: BP 124/80; PULSE 66; RESP 18; TEMP 97.2; O2SAT 98
[2016-05-09 04:00] VITALS: BP 97/58; PULSE 64; RESP 20; TEMP 96.7; O2SAT 96
[2016-05-09 08:00] VITALS: BP 128/80; PULSE 74; RESP 16; TEMP 96.6; O2SAT 98
[2016-05-09] MEDS: METOPROLOL TARTRATE 25 MG TAB PO/GT SCH ×2 (09:00→21:26)
[2016-05-09] MEDS: LISINOPRIL 10 MG TAB PO SCH (09:00)
[2016-05-09] MEDS: levETIRAcetam 500 MG/5 ML UDC PO SCH ×2 (10:02→21:26)
[2016-05-09] MEDS: METHADONE HCL 10 MG/10 ML ORAL SOLUTION G-TUBE SCH ×2 (10:04→21:25)
[2016-05-09] MEDS: ENOXAPARIN SODIUM 40 MG/0.4 ML SYRINGE SQ SCH (10:07)
--- NOTE | 2016-05-09 11:09 | HHI.PR ---
Subjective Remarks Follow up for TBI, malnutrition. The patient is seen sitting upright in recliner at bedside watching TV. He has no medical complaints. States he's doing better with PT, walking the entire unit with a 4-prong cane now, no more walker. He states he is eating well but doesn't eat much for breakfast. Still aphasic. Vital signs stable. Objective Vitals Vital Signs Date Time Temp Pulse Resp B/P Pulse Ox O2 Delivery O2 Flow Rate FiO2 05/09/16 08:00 96.6 74 16 128/80 98 05/09/16 04:00 96.7 64 20 97/58 96 05/09/16 00:00 97.2 66 18 124/80 98 05/08/16 20:28 96.3 69 18 126/77 100 05/08/16 17:32 97.4 05/08/16 12:53 96.7 63 19 129/78 98 I/O 05/08/16 05/08/16 05/08/16 05/09/16 05/09/16 05/09/16 07:00 15:00 23:00 07:00 15:00 23:00 Intake Total 600 ml 2230 ml Output Total 2000 ml Balance 600 ml 2230 ml -2000 ml Intake Oral 600 ml 480 ml Tube Feeding 1700 ml Tube Irrigant 50 ml Output Urine Total 2000 ml # Voids 2 4 # Bowel Movements 0 1 1 Imaging Last Impressions Chest X-Ray 03/27/16 0000 Signed Impressions: Service Date/Time: Sunday, March 27, 2016 03:46 - CONCLUSION: No significant change mild parenchymal opacities of the left lung. Duy Skelton MD Liver Ultrasound 03/18/16 0000 Signed Impressions: Service Date/Time: Friday, March 18, 2016 17:01 - CONCLUSION: Ultrasound appearance of the liver and other right upper quadrant structures is within normal limits. Duy Skelton MD Head CT 03/09/16 0600 Signed Impressions: Service Date/Time: Wednesday, March 09, 2016 04:21 - CONCLUSION: 1. Mild improvement of the cerebral edema in the left cerebral hemisphere. 2. Otherwise , no other new or significant changes. Alli Jj MD Head CTA 02/16/16 0000 Signed Impressions: Service Date/Time: Tuesday, February 16, 2016 04:31 - CONCLUSION: I do not see an etiology for the patient's cerebellar hemorrhage on the right. Small supratentorial vessels in a 65-year-old. Etiology of this finding is not apparent. Trace subdural blood and subarachnoid blood persist over both convexities. Earl Gaitan MD FACR Cervical Spine CT 02/15/16 0445 Signed Impressions: Service Date/Time: January 04:57 - CONCLUSION: 1. Slight neural foramina compromise bilateral C4-5 and C5-6 in addition to bilateral lateral recess compromise at these levels and no significant thecal sac stenosis. 2. There is also slight neural foramina compromise right C3-C4. 3. Nonspecific lucencies in the spine may be osteoporotic changes, however myeloma is difficult to exclude. Ariadne Feng MD Objective Remarks GENERAL: Well-nourished, well-developed middle aged male patient in [facility]. SKIN: Warm and dry. No rash. HEAD: Normocephalic. Atraumatic. NECK: Supple. Trachea midline. CARDIOVASCULAR: Regular rate and rhythm. S1, S2 noted. No murmur appreciated. RESPIRATORY: No accessory muscle use. Clear to auscultation. Breath sounds equal bilaterally. GASTROINTESTINAL: Abdomen soft, non-tender, nondistended. Normoactive bowel sounds x4. PEG in place. MUSCULOSKELETAL: No obvious deformities. Extremities without clubbing, cyanosis , or edema. NEUROLOGICAL: Awake and alert, oriented to self. Speech not slurred, however often with expressive deficit/nonsensical speech. Moves all extremities spontaneously, right sided upper and lower extremity 3-4/5 strength, left upper and lower extremity 5/5 strength. Procedures 02/14 with right frontal bur hole and left subclavian line placement 02/15 with right occipital craniectomy with SDH evacuation 02/20 tracheostomy and PEG placement 02/25 left frontal temporoparietal decompressive craniotomy 03/06 PICC 03/29 bone flap replacement Medications and IVs Current Medications Medications (Trade) Dose Ordered Sig/Rodney Route Start Time Stop Time Status Last Admin Miscellaneous Information 1 Q361D XX 02/15/16 04:00 (Tylenol) 650 mg Q4H PRN PO 03/29/16 10:30 04/25/16 06:18 (Methadone Liq) 2.5 mg Q12HR G-TUBE 03/30/16 21:00 05/09/16 10:04 (Motrin Liq) 400 mg Q6H PRN PO 04/01/16 11:15 04/28/16 21:03 (Lovenox Inj) 40 mg Q24H SQ 04/01/16 12:00 05/09/16 10:07 (Keppra Liq) 1,000 mg Q12HR PO 04/15/16 21:00 05/09/16 10:02 (Prinivil) 10 mg DAILY PO 04/26/16 09:00 05/08/16 09:59 (Colace) 100 mg BID PRN PO 04/28/16 11:00 (Milk Of Magnesia Liq) 30 ml Q6H PRN PO 04/28/16 11:45 (Lopressor) 25 mg Q12HR PO/GT 04/28/16 21:00 05/08/16 21:20 Urinary Catheter: No Date of Insertion: Apr 10, 2016 Date of Removal: Apr 22, 2016 Vascular Central Line Catheter: No Date of Insertion: Mar 06, 2016 Line: PICC Side: Right Location: Antecubital A/P Problem List: (1) HTN (hypertension) Status: Acute (2) Traumatic brain injury Status: Acute Assessment and Plan 65-year-old male with: 1. S/P traumatic brain injury: Initial head CT with right occipital bone fracture along with intraparenchymal hemorrhage, bilateral subdural hematomas, and subarachnoid hemorrhages. Patient is status post right frontal bur hole, right occipital craniectomy with SDH evacuation, PEG placement, left frontal temporoparietal decompressive craniotomy, and subsequent bone flap replacement. - Continue PT/speech therapy/occupational therapy - on Keppra bid for seizure prophylaxis - neurosurgery signed off 2. Protein Calorie malnutrition: Dietitian following, recently evaluated, taking 70-100% oral meeting low end of nutrition needs. Continue tube feeds with Jevity 1.5 at night with mechanical soft diet tray during the day. Encourage oral intake. 3. HTN: Medications recently adjusted with good effect. Currently on metoprolol 25 mg bid and lisinopril 10 mg daily, continue. Monitor and adjust BP meds as needed. 4. Urinary retention: Cuenca removed 04/22 and patient passed voiding trial. Now voiding spontaneously. Monitor. Resolved. 5. DVT prophylaxis: Lovenox subcutaneous. Discharge Planning Per OT needs 24 h supervision at discharge No payor source for group home or home health care There is a friend he may stay with however patient still needs quite a bit of supervision, he will need to also taper off of night tube feedings Rosa Rodriguez PA-C May 09, 2016 11:08 Lakshmi Iglesias MD May 09, 2016 14:09
[2016-05-09 12:00] VITALS: BP 123/78; PULSE 75; RESP 16; TEMP 97.6; O2SAT 98
[2016-05-09 16:00] VITALS: BP 125/79; PULSE 85; RESP 16; TEMP 97.6; O2SAT 99
[2016-05-09 20:00] VITALS: BP 123/77; PULSE 77; RESP 19; TEMP 97.2; O2SAT 98
[2016-05-10] VITALS: BP 121/81; PULSE 68; RESP 18; TEMP 98.1; O2SAT 97
[2016-05-10 04:45] VITALS: BP 131/76; PULSE 67; RESP 18; TEMP 93.7; O2SAT 96
[2016-05-10 09:02] VITALS: BP 118/77; PULSE 76; RESP 17; TEMP 96.2; O2SAT 97
[2016-05-10] MEDS: levETIRAcetam 500 MG/5 ML UDC PO SCH ×2 (09:59→19:52)
[2016-05-10] MEDS: METOPROLOL TARTRATE 25 MG TAB PO/GT SCH ×2 (09:59→19:52)
[2016-05-10] MEDS: LISINOPRIL 10 MG TAB PO SCH (09:59)
[2016-05-10] MEDS: METHADONE HCL 10 MG/10 ML ORAL SOLUTION G-TUBE SCH ×2 (09:59→19:53)
[2016-05-10] MEDS: ENOXAPARIN SODIUM 40 MG/0.4 ML SYRINGE SQ SCH (11:48)
[2016-05-10 13:17] VITALS: BP 108/71; PULSE 69; RESP 18; TEMP 96.3; O2SAT 97
--- NOTE | 2016-05-10 13:51 | HHI.PR ---
Subjective Remarks Follow-up for TBI, malnutrition. Patient sitting in the recliner watching TV. No acute complaints. He states that he doesn't eat lunch early in the morning and doesn't like how the meal supplements taste. Started on tube feeds at night. Objective Vitals Vital Signs Date Time Temp Pulse Resp B/P Pulse Ox O2 Delivery O2 Flow Rate FiO2 05/10/16 13:17 96.3 69 18 108/71 97 05/10/16 09:02 96.2 76 17 118/77 97 05/10/16 04:45 93.7 67 18 131/76 96 05/10/16 00:00 98.1 68 18 121/81 97 05/09/16 20:00 97.2 77 19 123/77 98 05/09/16 16:00 97.6 85 16 125/79 99 I/O 05/09/16 05/09/16 05/09/16 05/10/16 05/10/16 05/10/16 07:00 15:00 23:00 07:00 15:00 23:00 Intake Total 600 ml Output Total 2000 ml 950 ml Balance -2000 ml -350 ml Intake Oral 600 ml Output Urine Total 2000 ml 950 ml # Voids 1 # Bowel Movements 1 Objective Remarks GENERAL: Well-developed well-nourished. In no acute distress. SKIN: Warm and dry. No lesions noted. HEENT: Normocephalic. Pupils equal and round. Mucous membranes pink and moist. CARDIOVASCULAR: Regular rate and rhythm. No murmur appreciated. RESPIRATORY: No accessory muscle use. Clear to auscultation. Breath sounds equal bilaterally. GASTROINTESTINAL: Abdomen soft, non-tender, nondistended. Bowel sounds x4. PEG tube in place. MUSCULOSKELETAL: No obvious deformities. No clubbing or cyanosis. No edema. NEUROLOGICAL: Awake and alert. Moves upper and lower extremities spontaneously. Normal speech, occasionally nonsensical. PSYCHIATRIC: Appropriate mood and affect; insight and judgment fair. Procedures 02/14 with right frontal bur hole and left subclavian line placement 02/15 with right occipital craniectomy with SDH evacuation 02/20 tracheostomy and PEG placement 02/25 left frontal temporoparietal decompressive craniotomy 03/06 PICC 03/29 bone flap replacement Date of Insertion: Apr 10, 2016 Date of Removal: Apr 22, 2016 Date of Insertion: Mar 06, 2016 Line: PICC Side: Right Location: Antecubital A/P Problem List: (1) HTN (hypertension) Status: Acute (2) Traumatic brain injury Status: Acute Assessment and Plan 65-year-old male with: 1. S/P traumatic brain injury: Initial head CT with right occipital bone fracture along with intraparenchymal hemorrhage, bilateral subdural hematomas, and subarachnoid hemorrhages. Patient is status post right frontal bur hole, right occipital craniectomy with SDH evacuation, PEG placement, left frontal temporoparietal decompressive craniotomy, and subsequent bone flap replacement. - Continue PT/speech therapy/occupational therapy - on Keppra bid for seizure prophylaxis- - neurosurgery signed off 2. Protein Calorie malnutrition: Dietitian following. Continue tube feeds at night with tray for now. Encourage by mouth feeding. 3. HTN: Chronic, stable. Currently on metoprolol 25 mg twice daily and lisinopril 10 mg once daily, continue. Monitor and adjust BP meds as needed. 4. Urinary retention: Cuenca removed and patient passed voiding trial. Now voiding spontaneously. Monitor. 5. DVT prophylaxis: Lovenox subcutaneous. Discharge Planning Reportedly the patient has a friend who says the patient lived with him if the patient doesn't have any medical needs. The patient is still on tube feedings at night. Ideally would be on long-term placement, discussed with case management, having a hard time placing him Attending Statement Patient seen by mid-level provider. I agree with above. Ernesto Huntley May 10, 2016 13:51 Dru Santana MD May 10, 2016 19:20
[2016-05-10 20:00] VITALS: BP 102/59; PULSE 68; RESP 18; TEMP 96.8; O2SAT 99
[2016-05-10 23:00] VITALS: BP 101/63; PULSE 60; RESP 18; TEMP 96.1; O2SAT 98
[2016-05-11 04:13] VITALS: BP 101/63; PULSE 63; RESP 18; TEMP 97.6; O2SAT 94
[2016-05-11 08:00] VITALS: BP 121/76; PULSE 68; RESP 15; TEMP 95.5; O2SAT 96
[2016-05-11] MEDS: METOPROLOL TARTRATE 25 MG TAB PO/GT SCH ×3 (08:50→20:50)
[2016-05-11] MEDS: LISINOPRIL 10 MG TAB PO SCH (08:50)
[2016-05-11] MEDS: levETIRAcetam 500 MG/5 ML UDC PO SCH ×2 (08:50→20:42)
[2016-05-11] MEDS: METHADONE HCL 10 MG/10 ML ORAL SOLUTION G-TUBE SCH ×2 (08:51→20:42)
--- NOTE | 2016-05-11 10:38 | HHI.PR ---
Subjective Remarks The patient was resting comfortably in a chair. He had no acute complaints at this time. He said he didn't have much of an appetite because he didn't like certain foods. He says he still gets his tube feeding at nighttime. He says he still gets confused at times. Objective Vitals Vital Signs Date Time Temp Pulse Resp B/P Pulse Ox O2 Delivery O2 Flow Rate FiO2 05/11/16 08:00 95.5 68 15 121/76 96 05/11/16 04:13 97.6 63 18 101/63 94 05/10/16 23:00 96.1 60 18 101/63 98 05/10/16 20:53 20 05/10/16 20:00 96.8 68 18 102/59 99 05/10/16 13:17 96.3 69 18 108/71 97 I/O 05/10/16 05/10/16 05/10/16 05/11/16 05/11/16 05/11/16 06:59 14:59 22:59 06:59 14:59 22:59 Intake Total 1069 ml Output Total 0 ml 0 ml Balance 0 ml 1069 ml IV Total 0 ml Tube Feeding 919 ml Other 150 ml Tube Feeding Residual Discard 0 ml 0 ml # Voids 1 Imaging Last Impressions Chest X-Ray 03/27/16 0000 Signed Impressions: Service Date/Time: Sunday, March 27, 2016 03:46 - CONCLUSION: No significant change mild parenchymal opacities of the left lung. Duy Skelton MD Liver Ultrasound 03/18/16 0000 Signed Impressions: Service Date/Time: Friday, March 18, 2016 17:01 - CONCLUSION: Ultrasound appearance of the liver and other right upper quadrant structures is within normal limits. Duy Skelton MD Head CT 03/09/16 0600 Signed Impressions: Service Date/Time: Wednesday, March 09, 2016 04:21 - CONCLUSION: 1. Mild improvement of the cerebral edema in the left cerebral hemisphere. 2. Otherwise , no other new or significant changes. Alli Jj MD Head CTA 02/16/16 0000 Signed Impressions: Service Date/Time: Tuesday, February 16, 2016 04:31 - CONCLUSION: I do not see an etiology for the patient's cerebellar hemorrhage on the right. Small supratentorial vessels in a 65-year-old. Etiology of this finding is not apparent. Trace subdural blood and subarachnoid blood persist over both convexities. Earl Gaitan MD FACR Cervical Spine CT 02/15/16 0445 Signed Impressions: Service Date/Time: January 04:57 - CONCLUSION: 1. Slight neural foramina compromise bilateral C4-5 and C5-6 in addition to bilateral lateral recess compromise at these levels and no significant thecal sac stenosis. 2. There is also slight neural foramina compromise right C3-C4. 3. Nonspecific lucencies in the spine may be osteoporotic changes, however myeloma is difficult to exclude. Ariadne Feng MD Objective Remarks GENERAL: Well-developed well-nourished. In no acute distress. SKIN: Warm and dry. No lesions noted. HEENT: Normocephalic. Pupils equal and round. Mucous membranes pink and moist. CARDIOVASCULAR: Regular rate and rhythm. No murmur appreciated. RESPIRATORY: No accessory muscle use. Clear to auscultation. Breath sounds equal bilaterally. GASTROINTESTINAL: Abdomen soft, non-tender, nondistended. Bowel sounds x4. PEG tube in place. MUSCULOSKELETAL: No obvious deformities. No clubbing or cyanosis. No edema. NEUROLOGICAL: Awake and alert. Moves upper and lower extremities spontaneously. Normal speech. PSYCHIATRIC: Appropriate mood and affect; insight and judgment fair. Procedures 02/14 with right frontal bur hole and left subclavian line placement 02/15 with right occipital craniectomy with SDH evacuation 02/20 tracheostomy and PEG placement 02/25 left frontal temporoparietal decompressive craniotomy 03/06 PICC 03/29 bone flap replacement Medications and IVs Current Medications Medications (Trade) Dose Ordered Sig/Rodney Route Start Time Stop Time Status Last Admin Miscellaneous Information 1 Q361D XX 02/15/16 04:00 (Tylenol) 650 mg Q4H PRN PO 03/29/16 10:30 04/25/16 06:18 (Methadone Liq) 2.5 mg Q12HR G-TUBE 03/30/16 21:00 05/11/16 08:51 (Motrin Liq) 400 mg Q6H PRN PO 04/01/16 11:15 04/28/16 21:03 (Lovenox Inj) 40 mg Q24H SQ 04/01/16 12:00 8/19/16 11:48 (Keppra Liq) 1,000 mg Q12HR PO 04/15/16 21:00 05/11/16 08:50 (Prinivil) 10 mg DAILY PO 04/26/16 09:00 05/11/16 08:50 (Colace) 100 mg BID PRN PO 04/28/16 11:00 (Milk Of Magnesia Liq) 30 ml Q6H PRN PO 04/28/16 11:45 (Lopressor) 25 mg Q12HR PO/GT 04/28/16 21:00 05/11/16 08:50 Date of Insertion: Apr 10, 2016 Date of Removal: Apr 22, 2016 Date of Insertion: Mar 06, 2016 Line: PICC Side: Right Location: Antecubital A/P Problem List: (1) HTN (hypertension) Status: Acute (2) Traumatic brain injury Status: Acute Assessment and Plan S/P traumatic brain injury Initial head CT with right occipital bone fracture along with intraparenchymal hemorrhage, bilateral subdural hematomas, and subarachnoid hemorrhages. Patient is status post right frontal bur hole, right occipital craniectomy with SDH evacuation, PEG placement, left frontal temporoparietal decompressive craniotomy, and subsequent bone flap replacement. - Continue PT/speech therapy/occupational therapy. - on Keppra bid for seizure prophylaxis. - neurosurgery signed off. Protein Calorie malnutrition Dietitian following. - Continue tube feeds at night with tray for now. Encourage by mouth feeding. HTN Chronic, stable. - Currently on metoprolol 25 mg twice daily and lisinopril 10 mg once daily, continue. DVT prophylaxis: Lovenox subcutaneous. Discharge Planning Awaiting placement. Sabino Britt DO May 11, 2016 10:38
[2016-05-11] MEDS: ENOXAPARIN SODIUM 40 MG/0.4 ML SYRINGE SQ SCH (11:31)
[2016-05-11 12:00] VITALS: BP 105/62; PULSE 59; RESP 17; TEMP 97.5; O2SAT 97
[2016-05-11 20:00] VITALS: BP 106/65; PULSE 76; RESP 20; TEMP 96.2; O2SAT 98
[2016-05-11 20:51] VITALS: BP 102/94; PULSE 66; RESP 18; O2SAT 95
[2016-05-12] VITALS: BP 138/81; PULSE 69; RESP 20; TEMP 96.8; O2SAT 98
[2016-05-12 04:00] VITALS: BP 99/64; PULSE 69; RESP 20; TEMP 96.6; O2SAT 96
[2016-05-12] MEDS: METOPROLOL TARTRATE 25 MG TAB PO/GT SCH ×3 (08:16→21:55)
[2016-05-12] MEDS: LISINOPRIL 10 MG TAB PO SCH ×2 (08:16→09:00)
[2016-05-12] MEDS: levETIRAcetam 500 MG/5 ML UDC PO SCH ×2 (08:16→21:53)
[2016-05-12] MEDS: METHADONE HCL 10 MG/10 ML ORAL SOLUTION G-TUBE SCH ×2 (08:17→21:55)
[2016-05-12 09:19] VITALS: BP 107/69; PULSE 77; RESP 18; TEMP 97.6; O2SAT 96
--- NOTE | 2016-05-12 09:48 | HHI.PR ---
Subjective Remarks The patient was resting in bed comfortably. He said he had a little bit of pain. He says he has been having regular bowel movements. He said he tolerated his breakfast without a problem. Objective Vitals Vital Signs Date Time Temp Pulse Resp B/P Pulse Ox O2 Delivery O2 Flow Rate FiO2 05/12/16 09:19 97.6 77 18 107/69 96 05/12/16 04:00 96.6 69 20 99/64 96 05/12/16 00:00 96.8 69 20 138/81 98 05/11/16 21:42 18 05/11/16 20:51 66 18 102/94 95 05/11/16 20:00 96.2 76 20 106/65 98 05/11/16 12:00 97.5 59 17 105/62 97 I/O 05/11/16 05/11/16 05/11/16 05/12/16 05/12/16 05/12/16 07:00 15:00 23:00 07:00 15:00 23:00 Intake Total 1069 ml 600 ml 120 ml 240 ml Output Total 240 ml 0 ml Balance 1069 ml 600 ml -120 ml 240 ml Intake Oral 600 ml 120 ml 240 ml IV Total 0 ml Tube Feeding 919 ml Other 150 ml Output Urine Total 240 ml Tube Feeding Residual Discard 0 ml 0 ml # Voids 6 2 # Bowel Movements 1 0 0 Imaging Last Impressions Chest X-Ray 03/27/16 0000 Signed Impressions: Service Date/Time: Sunday, March 27, 2016 03:46 - CONCLUSION: No significant change mild parenchymal opacities of the left lung. Duy Skelton MD Liver Ultrasound 03/18/16 0000 Signed Impressions: Service Date/Time: Friday, March 18, 2016 17:01 - CONCLUSION: Ultrasound appearance of the liver and other right upper quadrant structures is within normal limits. Duy Skelton MD Head CT 03/09/16 0600 Signed Impressions: Service Date/Time: Wednesday, March 09, 2016 04:21 - CONCLUSION: 1. Mild improvement of the cerebral edema in the left cerebral hemisphere. 2. Otherwise , no other new or significant changes. Alli Jj MD Head CTA 02/16/16 0000 Signed Impressions: Service Date/Time: Tuesday, February 16, 2016 04:31 - CONCLUSION: I do not see an etiology for the patient's cerebellar hemorrhage on the right. Small supratentorial vessels in a 65-year-old. Etiology of this finding is not apparent. Trace subdural blood and subarachnoid blood persist over both convexities. Earl Gaitan MD FACR Cervical Spine CT 02/15/16 0445 Signed Impressions: Service Date/Time: January 04:57 - CONCLUSION: 1. Slight neural foramina compromise bilateral C4-5 and C5-6 in addition to bilateral lateral recess compromise at these levels and no significant thecal sac stenosis. 2. There is also slight neural foramina compromise right C3-C4. 3. Nonspecific lucencies in the spine may be osteoporotic changes, however myeloma is difficult to exclude. Ariadne Feng MD Objective Remarks GENERAL: Well-developed well-nourished. In no acute distress. SKIN: Warm and dry. No lesions noted. HEENT: Normocephalic. Pupils equal and round. Mucous membranes pink and moist. CARDIOVASCULAR: Regular rate and rhythm. No murmur appreciated. RESPIRATORY: No accessory muscle use. Clear to auscultation. Breath sounds equal bilaterally. GASTROINTESTINAL: Abdomen soft, non-tender, nondistended. Bowel sounds x4. PEG tube in place. MUSCULOSKELETAL: No obvious deformities. No clubbing or cyanosis. No edema. NEUROLOGICAL: Awake and alert. Moves upper and lower extremities spontaneously. Normal speech. PSYCHIATRIC: Appropriate mood and affect; insight and judgment fair. Procedures 02/14 with right frontal bur hole and left subclavian line placement 02/15 with right occipital craniectomy with SDH evacuation 02/20 tracheostomy and PEG placement 02/25 left frontal temporoparietal decompressive craniotomy 03/06 PICC 03/29 bone flap replacement Medications and IVs Current Medications Medications (Trade) Dose Ordered Sig/Rodney Route Start Time Stop Time Status Last Admin Miscellaneous Information 1 Q361D XX 02/15/16 04:00 (Tylenol) 650 mg Q4H PRN PO 03/29/16 10:30 04/25/16 06:18 (Methadone Liq) 2.5 mg Q12HR G-TUBE 03/30/16 21:00 05/12/16 08:17 (Motrin Liq) 400 mg Q6H PRN PO 04/01/16 11:15 04/28/16 21:03 (Lovenox Inj) 40 mg Q24H SQ 04/01/16 12:00 05/11/16 11:31 (Keppra Liq) 1,000 mg Q12HR PO 04/15/16 21:00 05/12/16 08:16 (Prinivil) 10 mg DAILY PO 04/26/16 09:00 05/11/16 08:50 (Colace) 100 mg BID PRN PO 04/28/16 11:00 (Milk Of Magnesia Liq) 30 ml Q6H PRN PO 04/28/16 11:45 (Lopressor) 25 mg Q12HR PO/GT 04/28/16 21:00 05/11/16 08:50 Date of Insertion: Apr 10, 2016 Date of Removal: Apr 22, 2016 Date of Insertion: Mar 06, 2016 Line: PICC Side: Right Location: Antecubital A/P Problem List: (1) HTN (hypertension) Status: Acute (2) Traumatic brain injury Status: Acute Assessment and Plan S/P traumatic brain injury Initial head CT with right occipital bone fracture along with intraparenchymal hemorrhage, bilateral subdural hematomas, and subarachnoid hemorrhages. Patient is status post right frontal bur hole, right occipital craniectomy with SDH evacuation, PEG placement, left frontal temporoparietal decompressive craniotomy, and subsequent bone flap replacement. - Continue PT/speech therapy/occupational therapy. - on Keppra bid for seizure prophylaxis. - neurosurgery signed off. Protein Calorie malnutrition Dietitian following. - Continue tube feeds at night with tray for now. Encourage by mouth feeding. HTN Chronic, stable. - Currently on metoprolol 25 mg twice daily and lisinopril 10 mg once daily, continue. DVT prophylaxis: Lovenox subcutaneous. Discharge Planning Awaiting placement. Sabino Britt DO May 12, 2016 09:48
[2016-05-12] MEDS: ENOXAPARIN SODIUM 40 MG/0.4 ML SYRINGE SQ SCH (11:26)
[2016-05-12 14:53] VITALS: BP 108/66; PULSE 75; RESP 17; TEMP 96.2; O2SAT 96
[2016-05-12 16:50] VITALS: BP 126/84; PULSE 75; RESP 18; TEMP 97; O2SAT 97
[2016-05-12 20:00] VITALS: BP 137/78; PULSE 73; RESP 20; TEMP 97; O2SAT 98
[2016-05-13] VITALS: BP 125/78; PULSE 77; RESP 20; TEMP 97.2; O2SAT 97
[2016-05-13 04:00] VITALS: BP 135/82; PULSE 66; RESP 20; TEMP 96.4; O2SAT 97
[2016-05-13 08:00] VITALS: BP 126/78; PULSE 77; RESP 16; TEMP 97.6; O2SAT 98
[2016-05-13 08:12] LABS: HEMATOCRIT 38.6 % (39.0-51.0); MEAN CELL VOLUME 85.7 FL (80.0-100.0); MEAN CORPUSCULAR HEMOGLOBIN 29.2 PG (27.0-34.0); MEAN CORPUSCULAR HGB CONC 34.1 % (32.0-36.0); PLATELET COUNT 354 TH/MM3 (150-450); RED CELL DISTRIBUTION WIDTH 15.6 % (11.6-17.2); REVIEW FLAG FINAL; WHITE BLOOD COUNT 5.7 TH/MM3 (4.0-11.0)
--- NOTE | 2016-05-13 08:12 | HHI.PR ---
Subjective Remarks Patient seen in room resting comfortably. Does not report any pain at this time. Tolerating by mouth diet. No additional complaints. Objective Vitals Vital Signs Date Time Temp Pulse Resp B/P Pulse Ox O2 Delivery O2 Flow Rate FiO2 05/13/16 04:00 96.4 66 20 135/82 97 05/13/16 00:00 97.2 77 20 125/78 97 05/12/16 22:55 18 05/12/16 20:00 97.0 73 20 137/78 98 05/12/16 16:50 97.0 75 18 126/84 97 05/12/16 14:53 96.2 75 17 108/66 96 05/12/16 09:19 97.6 77 18 107/69 96 I/O 05/12/16 05/12/16 05/12/16 05/13/16 05/13/16 05/13/16 07:00 15:00 23:00 07:00 15:00 23:00 Intake Total 240 ml 480 ml 480 ml 240 ml Output Total 0 ml 0 ml 0 ml Balance 240 ml 480 ml 480 ml 240 ml Intake Oral 240 ml 480 ml 480 ml 240 ml Tube Feeding Residual Discard 0 ml 0 ml 0 ml # Voids 2 4 1 2 # Bowel Movements 0 1 0 Imaging Last Impressions Chest X-Ray 03/27/16 0000 Signed Impressions: Service Date/Time: Sunday, March 27, 2016 03:46 - CONCLUSION: No significant change mild parenchymal opacities of the left lung. Duy Skelton MD Liver Ultrasound 03/18/16 0000 Signed Impressions: Service Date/Time: Friday, March 18, 2016 17:01 - CONCLUSION: Ultrasound appearance of the liver and other right upper quadrant structures is within normal limits. Duy Skelton MD Head CT 03/09/16 0600 Signed Impressions: Service Date/Time: Wednesday, March 09, 2016 04:21 - CONCLUSION: 1. Mild improvement of the cerebral edema in the left cerebral hemisphere. 2. Otherwise , no other new or significant changes. Alli Jj MD Head CTA 02/16/16 0000 Signed Impressions: Service Date/Time: Tuesday, February 16, 2016 04:31 - CONCLUSION: I do not see an etiology for the patient's cerebellar hemorrhage on the right. Small supratentorial vessels in a 65-year-old. Etiology of this finding is not apparent. Trace subdural blood and subarachnoid blood persist over both convexities. Earl Gaitan MD FACR Cervical Spine CT 02/15/16 0445 Signed Impressions: Service Date/Time: January 04:57 - CONCLUSION: 1. Slight neural foramina compromise bilateral C4-5 and C5-6 in addition to bilateral lateral recess compromise at these levels and no significant thecal sac stenosis. 2. There is also slight neural foramina compromise right C3-C4. 3. Nonspecific lucencies in the spine may be osteoporotic changes, however myeloma is difficult to exclude. Ariadne Feng MD Objective Remarks GENERAL: Well-nourished, well-developed patient. Not in distress. SKIN: Warm and dry. No rash of generalized distribution noted. HEAD: Normocephalic. Atraumatic. ENT: No nasal bleeding or discharge. Mucous membranes pink and moist. NECK: Supple. Trachea midline. CARDIOVASCULAR: Regular rate and rhythm. No murmur gallop or rub. RESPIRATORY: No accessory muscle use. Clear to auscultation. Breath sounds equal bilaterally. GASTROINTESTINAL: Abdomen soft, non-tender, nondistended. Normoactive bowel sounds x4. PEG in place. GENITOURINARY: Patient voiding spontaneously. MUSCULOSKELETAL: No obvious deformities. Extremities without clubbing, cyanosis , or edema. NEUROLOGICAL: Awake and alert, oriented to self. Normal speech noted at this time. Procedures 02/14 with right frontal bur hole and left subclavian line placement 02/15 with right occipital craniectomy with SDH evacuation 02/20 tracheostomy and PEG placement 02/25 left frontal temporoparietal decompressive craniotomy 03/06 PICC / bone flap replacement Date of Insertion: Apr 10, 2016 Date of Removal: Apr 22, 2016 Date of Insertion: Mar 06, 2016 Line: PICC Side: Right Location: Antecubital A/P Problem List: (1) HTN (hypertension) Status: Acute (2) Traumatic brain injury Status: Acute Assessment and Plan 65-year-old male with: 1. S/P traumatic brain injury: Initial head CT with right occipital bone fracture along with intraparenchymal hemorrhage, bilateral subdural hematomas, and subarachnoid hemorrhages. Patient is status post right frontal bur hole, right occipital craniectomy with SDH evacuation, PEG placement, left frontal temporoparietal decompressive craniotomy, and subsequent bone flap replacement. -Continue PT/ST/OT -Continue Keppra for seizure prophylaxis- - neurosurgery signed off 2. Protein Calorie Malnutrition: Appreciate dietary recommendations to continue Jevity 1.5 at 100 mL per hour from [id number] and regular trays during the day. Encouraged oral intake. 3. HTN: Continue lisinopril. Continue Metoprolol at 25 mg twice a day. Will continue to monitor and adjust BP meds as needed. 4. Urinary retention: Cuenca removed and patient passed voiding trial. Now voiding spontaneously. Monitor. 5. DVT prophylaxis: Lovenox subcutaneous. Care discussed with patient, RN, Dr. Britt. Pat Mora May 13, 2016 08:12 Sabino Britt DO May 13, 2016 10:51
[2016-05-13 08:37] LABS: BICARBONATE 29.6 MEQ/L (21.0-32.0); MAGNESIUM 2.4 MG/DL (1.5-2.5)
[2016-05-13] MEDS: LISINOPRIL 10 MG TAB PO SCH (08:49)
[2016-05-13] MEDS: levETIRAcetam 500 MG/5 ML UDC PO SCH ×2 (08:49→21:31)
[2016-05-13] MEDS: METOPROLOL TARTRATE 25 MG TAB PO/GT SCH ×2 (08:49→21:35)
[2016-05-13] MEDS: METHADONE HCL 10 MG/10 ML ORAL SOLUTION G-TUBE SCH ×2 (08:50→21:31)
[2016-05-13 12:00] VITALS: BP 128/71; PULSE 64; RESP 19; TEMP 96.8; O2SAT 95
[2016-05-13] MEDS: ENOXAPARIN SODIUM 40 MG/0.4 ML SYRINGE SQ SCH (13:16)
[2016-05-13 16:19] VITALS: BP 151/88; PULSE 77; RESP 16; TEMP 98; O2SAT 99
[2016-05-13 20:00] VITALS: BP 112/84; PULSE 67; RESP 15; TEMP 96.3; O2SAT 96
[2016-05-14 01:00] VITALS: BP 94/55; PULSE 62; TEMP 97.3; O2SAT 97
[2016-05-14] MEDS: METHADONE HCL 10 MG/10 ML ORAL SOLUTION G-TUBE SCH ×2 (07:54→22:39)
[2016-05-14] MEDS: levETIRAcetam 500 MG/5 ML UDC PO SCH ×2 (07:55→22:38)
[2016-05-14 08:04] VITALS: BP 114/78; PULSE 76; RESP 20; TEMP 97.7; O2SAT 98
[2016-05-14] MEDS: METOPROLOL TARTRATE 25 MG TAB PO/GT SCH ×2 (08:06→21:00)
[2016-05-14] MEDS: LISINOPRIL 10 MG TAB PO SCH (08:07)
--- NOTE | 2016-05-14 08:19 | HHI.PR ---
Subjective Remarks Patient seen in room, sitting up in bed. Mood is labile today. No acute concerns other than he feels like he doesn't get enough sleep at night. Objective Vitals Vital Signs Date Time Temp Pulse Resp B/P Pulse Ox O2 Delivery O2 Flow Rate FiO2 05/14/16 08:04 97.7 76 20 114/78 98 05/14/16 01:00 97.3 62 94/55 97 05/13/16 20:00 96.3 67 15 112/84 96 05/13/16 16:19 98.0 77 16 151/88 99 05/13/16 12:00 96.8 64 19 128/71 95 I/O 05/13/16 05/13/16 05/13/16 05/14/16 05/14/16 05/14/16 07:00 15:00 23:00 07:00 15:00 23:00 Intake Total 240 ml 0 ml Output Total 0 ml 800 ml 600 ml Balance 240 ml -800 ml -600 ml Intake Oral 240 ml IV Total 0 ml Output Urine Total 800 ml 600 ml Tube Feeding Residual Discard 0 ml # Voids 2 # Bowel Movements 0 0 Result Diagram: 05/13/16 0727 05/13/16 0727 Imaging Last Impressions Chest X-Ray 03/27/16 0000 Signed Impressions: Service Date/Time: Sunday, March 27, 2016 03:46 - CONCLUSION: No significant change mild parenchymal opacities of the left lung. Duy Skelton MD Liver Ultrasound 03/18/16 0000 Signed Impressions: Service Date/Time: Friday, March 18, 2016 17:01 - CONCLUSION: Ultrasound appearance of the liver and other right upper quadrant structures is within normal limits. Duy Skelton MD Head CT 03/09/16 0600 Signed Impressions: Service Date/Time: Wednesday, March 09, 2016 04:21 - CONCLUSION: 1. Mild improvement of the cerebral edema in the left cerebral hemisphere. 2. Otherwise , no other new or significant changes. Alli Jj MD Head CTA 02/16/16 0000 Signed Impressions: Service Date/Time: Tuesday, February 16, 2016 04:31 - CONCLUSION: I do not see an etiology for the patient's cerebellar hemorrhage on the right. Small supratentorial vessels in a 65-year-old. Etiology of this finding is not apparent. Trace subdural blood and subarachnoid blood persist over both convexities. Earl Gaitan MD FACR Cervical Spine CT 02/15/16 0445 Signed Impressions: Service Date/Time: January 04:57 - CONCLUSION: 1. Slight neural foramina compromise bilateral C4-5 and C5-6 in addition to bilateral lateral recess compromise at these levels and no significant thecal sac stenosis. 2. There is also slight neural foramina compromise right C3-C4. 3. Nonspecific lucencies in the spine may be osteoporotic changes, however myeloma is difficult to exclude. Ariadne Feng MD Objective Remarks GENERAL: Well-nourished, well-developed patient. Not in distress. SKIN: Warm and dry. No rash of generalized distribution noted. HEAD: Normocephalic. Atraumatic. ENT: No nasal bleeding or discharge. Mucous membranes pink and moist. NECK: Supple. Trachea midline. CARDIOVASCULAR: Regular rate and rhythm. No murmur gallop or rub. RESPIRATORY: No accessory muscle use. Clear to auscultation. Breath sounds equal bilaterally. GASTROINTESTINAL: Abdomen soft, non-tender, nondistended. Normoactive bowel sounds x4. PEG in place. GENITOURINARY: Patient voiding spontaneously. MUSCULOSKELETAL: No obvious deformities. Extremities without clubbing, cyanosis , or edema. NEUROLOGICAL: Awake and alert, oriented to self. Normal speech noted at this time. Procedures 02/14 with right frontal bur hole and left subclavian line placement 02/15 with right occipital craniectomy with SDH evacuation 02/20 tracheostomy and PEG placement 02/25 left frontal temporoparietal decompressive craniotomy 03/06 PICC / bone flap replacement Date of Insertion: Apr 10, 2016 Date of Removal: Apr 22, 2016 Date of Insertion: Mar 06, 2016 Line: PICC Side: Right Location: Antecubital A/P Problem List: (1) HTN (hypertension) Status: Acute (2) Traumatic brain injury Status: Acute Assessment and Plan 65-year-old male with: 1. S/P traumatic brain injury: Initial head CT with right occipital bone fracture along with intraparenchymal hemorrhage, bilateral subdural hematomas, and subarachnoid hemorrhages. Patient is status post right frontal bur hole, right occipital craniectomy with SDH evacuation, PEG placement, left frontal temporoparietal decompressive craniotomy, and subsequent bone flap replacement. -Continue PT/ST/OT -Continue Keppra for seizure prophylaxis- - neurosurgery signed off 2. Protein Calorie Malnutrition: Appreciate dietary recommendations to continue Jevity 1.5 at 100 mL per hour from [id number] and regular trays during the day. Encouraged oral intake. 3. HTN: Continue lisinopril. Continue Metoprolol at 25 mg twice a day. Will continue to monitor and adjust BP meds as needed. 4. Urinary retention: Cuenca removed and patient passed voiding trial. Now voiding spontaneously. Monitor. 5. DVT prophylaxis: Lovenox subcutaneous. 6. Insomnia- Benadryl PRN Care discussed with patient, RN, Dr. Britt. Pat Mora May 14, 2016 08:19
[2016-05-14 12:00] VITALS: BP 109/64; PULSE 64; RESP 20; TEMP 97.9; O2SAT 98
[2016-05-14] MEDS: ENOXAPARIN SODIUM 40 MG/0.4 ML SYRINGE SQ SCH (15:26)
[2016-05-14 16:11] VITALS: BP 99/59; PULSE 60; RESP 20; TEMP 96.1; O2SAT 100
[2016-05-14 20:00] VITALS: BP 109/67; PULSE 77; RESP 18; TEMP 96.9; O2SAT 94
[2016-05-15] VITALS: BP 107/66; PULSE 81; RESP 18; TEMP 97; O2SAT 97
[2016-05-15 08:19] VITALS: BP 124/83; PULSE 80; RESP 20; TEMP 96.1; O2SAT 98
[2016-05-15] MEDS: METOPROLOL TARTRATE 25 MG TAB PO/GT SCH ×2 (08:21→21:52)
[2016-05-15] MEDS: levETIRAcetam 500 MG/5 ML UDC PO SCH ×2 (08:21→21:52)
[2016-05-15] MEDS: LISINOPRIL 10 MG TAB PO SCH (08:21)
[2016-05-15] MEDS: METHADONE HCL 10 MG/10 ML ORAL SOLUTION G-TUBE SCH ×2 (08:22→21:51)
--- NOTE | 2016-05-15 08:36 | HHI.PR ---
Subjective Remarks Patient sitting up in bed eating breakfast. Appears in a much better mood today , stated he slept well. No other acute concerns. Objective Vitals Vital Signs Date Time Temp Pulse Resp B/P Pulse Ox O2 Delivery O2 Flow Rate FiO2 05/15/16 08:19 96.1 80 20 124/83 98 05/15/16 00:00 97.0 81 18 107/66 97 05/14/16 20:00 96.9 77 18 109/67 94 05/14/16 16:11 96.1 60 20 99/59 100 05/14/16 12:00 97.9 64 20 109/64 98 05/14/16 08:54 18 I/O 05/14/16 05/14/16 05/14/16 05/15/16 05/15/16 05/15/16 07:00 15:00 23:00 07:00 15:00 23:00 Intake Total 720 ml 220 ml 120 ml Output Total 600 ml Balance 720 ml 220 ml -480 ml Intake Oral 720 ml 220 ml 120 ml Output Urine Total 600 ml # Voids 4 2 # Bowel Movements 0 1 Result Diagram: 05/13/16 0727 05/13/16 0727 Imaging Last Impressions Chest X-Ray 03/27/16 0000 Signed Impressions: Service Date/Time: Sunday, March 27, 2016 03:46 - CONCLUSION: No significant change mild parenchymal opacities of the left lung. Duy Skelton MD Liver Ultrasound 03/18/16 0000 Signed Impressions: Service Date/Time: Friday, March 18, 2016 17:01 - CONCLUSION: Ultrasound appearance of the liver and other right upper quadrant structures is within normal limits. Duy Skelton MD Head CT 03/09/16 0600 Signed Impressions: Service Date/Time: Wednesday, March 09, 2016 04:21 - CONCLUSION: 1. Mild improvement of the cerebral edema in the left cerebral hemisphere. 2. Otherwise , no other new or significant changes. Alli Jj MD Head CTA 02/16/16 0000 Signed Impressions: Service Date/Time: Tuesday, February 16, 2016 04:31 - CONCLUSION: I do not see an etiology for the patient's cerebellar hemorrhage on the right. Small supratentorial vessels in a 65-year-old. Etiology of this finding is not apparent. Trace subdural blood and subarachnoid blood persist over both convexities. Earl Gaitan MD FACR Cervical Spine CT 02/15/16 0445 Signed Impressions: Service Date/Time: January 04:57 - CONCLUSION: 1. Slight neural foramina compromise bilateral C4-5 and C5-6 in addition to bilateral lateral recess compromise at these levels and no significant thecal sac stenosis. 2. There is also slight neural foramina compromise right C3-C4. 3. Nonspecific lucencies in the spine may be osteoporotic changes, however myeloma is difficult to exclude. Ariadne Feng MD Objective Remarks GENERAL: Well-nourished, well-developed patient. Not in distress. SKIN: Warm and dry. No rash of generalized distribution noted. HEAD: Normocephalic. Atraumatic. ENT: No nasal bleeding or discharge. Mucous membranes pink and moist. NECK: Supple. Trachea midline. CARDIOVASCULAR: Regular rate and rhythm. No murmur gallop or rub. RESPIRATORY: No accessory muscle use. Clear to auscultation. Breath sounds equal bilaterally. GASTROINTESTINAL: Abdomen soft, non-tender, nondistended. Normoactive bowel sounds x4. PEG in place. GENITOURINARY: Patient voiding spontaneously. MUSCULOSKELETAL: No obvious deformities. Extremities without clubbing, cyanosis , or edema. NEUROLOGICAL: Awake and alert, oriented to self. Normal speech noted at this time. Procedures 02/14 with right frontal bur hole and left subclavian line placement 02/15 with right occipital craniectomy with SDH evacuation 02/20 tracheostomy and PEG placement 02/25 left frontal temporoparietal decompressive craniotomy 03/06 PICC 03/29 bone flap replacement Date of Insertion: Apr 10, 2016 Date of Removal: Apr 22, 2016 Date of Insertion: Mar 06, 2016 Line: PICC Side: Right Location: Antecubital A/P Problem List: (1) HTN (hypertension) Status: Acute (2) Traumatic brain injury Status: Acute Assessment and Plan 65-year-old male with: 1. S/P traumatic brain injury: Initial head CT with right occipital bone fracture along with intraparenchymal hemorrhage, bilateral subdural hematomas, and subarachnoid hemorrhages. Patient is status post right frontal bur hole, right occipital craniectomy with SDH evacuation, PEG placement, left frontal temporoparietal decompressive craniotomy, and subsequent bone flap replacement. -Continue PT/ST/OT -Continue Keppra for seizure prophylaxis- - neurosurgery signed off 2. Protein Calorie Malnutrition: Appreciate dietary recommendations to continue Jevity 1.5 at 100 mL per hour from [id number] and regular trays during the day. Encouraged oral intake. 3. HTN: Continue lisinopril. Continue Metoprolol at 25 mg twice a day. Will continue to monitor and adjust BP meds as needed. 4. Urinary retention: Cuenca removed and patient passed voiding trial. Now voiding spontaneously. Monitor. 5. DVT prophylaxis: Lovenox subcutaneous. 6. Insomnia- Benadryl PRN No change in current management. Care discussed with patient, RN, Dr. Britt. Pat Mora May 15, 2016 08:36
[2016-05-15] MEDS: ENOXAPARIN SODIUM 40 MG/0.4 ML SYRINGE SQ SCH (11:31)
[2016-05-15 12:18] VITALS: BP 141/87; PULSE 69; RESP 16; TEMP 97.6; O2SAT 98
[2016-05-15 16:12] VITALS: BP 104/67; PULSE 62; RESP 20; TEMP 95.9; O2SAT 97
[2016-05-15 20:00] VITALS: BP 125/69; PULSE 76; RESP 20; TEMP 96.7; O2SAT 96
[2016-05-16] VITALS: BP 91/61; PULSE 66; RESP 20; TEMP 97.2; O2SAT 97
[2016-05-16 05:30] VITALS: BP 121/73; PULSE 68; RESP 20; TEMP 97.6; O2SAT 97
[2016-05-16 07:51] VITALS: BP 127/78; PULSE 72; RESP 16; TEMP 95.8; O2SAT 96
[2016-05-16] MEDS: LISINOPRIL 10 MG TAB PO SCH (08:36)
[2016-05-16] MEDS: METOPROLOL TARTRATE 25 MG TAB PO/GT SCH ×2 (08:36→21:00)
[2016-05-16] MEDS: METHADONE HCL 10 MG/10 ML ORAL SOLUTION G-TUBE SCH ×2 (08:37→21:00)
[2016-05-16] MEDS: levETIRAcetam 500 MG/5 ML UDC PO SCH ×2 (08:37→21:00)
--- NOTE | 2016-05-16 09:10 | HHI.PR ---
Subjective Remarks Follow-up intracranial hemorrhage 05/16/16-patient seen and examined; alert and following commands. No acute event overnight Objective Vitals Vital Signs Date Time Temp Pulse Resp B/P Pulse Ox O2 Delivery O2 Flow Rate FiO2 05/16/16 07:51 95.8 72 16 127/78 96 05/16/16 05:30 97.6 68 20 121/73 97 05/16/16 00:00 97.2 66 20 91/61 97 05/15/16 20:00 96.7 76 20 125/69 96 05/15/16 16:12 95.9 62 20 104/67 97 05/15/16 12:18 97.6 69 16 141/87 98 I/O 05/15/16 05/15/16 05/15/16 05/16/16 05/16/16 05/16/16 07:00 15:00 23:00 07:00 15:00 23:00 Intake Total 120 ml 1440 ml 240 ml Output Total 600 ml 800 ml 450 ml Balance -480 ml 640 ml -210 ml Intake Oral 120 ml 1440 ml 240 ml Output Urine Total 600 ml 800 ml 450 ml # Voids 2 # Bowel Movements 0 1 0 Result Diagram: 05/13/16 0727 05/13/16 0727 Imaging Last Impressions Chest X-Ray 03/27/16 0000 Signed Impressions: Service Date/Time: Sunday, March 27, 2016 03:46 - CONCLUSION: No significant change mild parenchymal opacities of the left lung. Duy Skelton MD Liver Ultrasound 03/18/16 0000 Signed Impressions: Service Date/Time: Friday, March 18, 2016 17:01 - CONCLUSION: Ultrasound appearance of the liver and other right upper quadrant structures is within normal limits. Duy Skelton MD Head CT 03/09/16 0600 Signed Impressions: Service Date/Time: Wednesday, March 09, 2016 04:21 - CONCLUSION: 1. Mild improvement of the cerebral edema in the left cerebral hemisphere. 2. Otherwise , no other new or significant changes. Alli Jj MD Head CTA 02/16/16 0000 Signed Impressions: Service Date/Time: Tuesday, February 16, 2016 04:31 - CONCLUSION: I do not see an etiology for the patient's cerebellar hemorrhage on the right. Small supratentorial vessels in a 65-year-old. Etiology of this finding is not apparent. Trace subdural blood and subarachnoid blood persist over both convexities. Earl Gaitan MD FACR Cervical Spine CT 02/15/16 0445 Signed Impressions: Service Date/Time: January 04:57 - CONCLUSION: 1. Slight neural foramina compromise bilateral C4-5 and C5-6 in addition to bilateral lateral recess compromise at these levels and no significant thecal sac stenosis. 2. There is also slight neural foramina compromise right C3-C4. 3. Nonspecific lucencies in the spine may be osteoporotic changes, however myeloma is difficult to exclude. Ariadne Feng MD Objective Remarks GENERAL: NAD SKIN: Warm and dry. HEAD: Normocephalic. EYES: No scleral icterus. No injection or drainage. NECK: Supple, trachea midline. No JVD or lymphadenopathy. CARDIOVASCULAR: Regular rate and rhythm without murmurs, gallops, or rubs. RESPIRATORY: Breath sounds equal bilaterally. No accessory muscle use. GASTROINTESTINAL: Abdomen soft, non-tender, nondistended. MUSCULOSKELETAL: No cyanosis, or edema. BACK: Nontender without obvious deformity. No CVA tenderness. Procedures 02/14 with right frontal bur hole and left subclavian line placement 02/15 with right occipital craniectomy with SDH evacuation 02/20 tracheostomy and PEG placement 02/25 left frontal temporoparietal decompressive craniotomy 03/06 PICC / bone flap replacement Date of Insertion: Apr 10, 2016 Date of Removal: Apr 22, 2016 Date of Insertion: Mar 06, 2016 Line: PICC Side: Right Location: Antecubital A/P Problem List: (1) HTN (hypertension) Status: Acute (2) Traumatic brain injury Status: Acute Assessment and Plan 65-year-old male with 1. S/P traumatic brain injury: Initial head CT with right occipital bone fracture along with intraparenchymal hemorrhage, bilateral subdural hematomas, and subarachnoid hemorrhages. Patient is status post right frontal bur hole, right occipital craniectomy with SDH evacuation, PEG placement, left frontal temporoparietal decompressive craniotomy, and subsequent bone flap replacement. -Continue PT/ST/OT. Continue Keppra for seizure prophylaxis- neurosurgery signed off 2. Protein Calorie Malnutrition: Appreciate dietary recommendations to continue Jevity 1.5 at 100 mL per hour from [id number] and regular trays during the day. Encouraged oral intake. 3. HTN: Continue lisinopril and Metoprolol 25 mg twice a day. 4. Urinary retention: Resolved 5. DVT prophylaxis: Lovenox subcutaneous. 6. Insomnia- Benadryl PRN Check CBC, BMP in a.m. Discharge Planning Awaiting placement Norman Xiong MD May 16, 2016 09:10
[2016-05-16] MEDS: ENOXAPARIN SODIUM 40 MG/0.4 ML SYRINGE SQ SCH (11:40)
[2016-05-16 11:48] VITALS: BP 119/74; PULSE 60; RESP 15; TEMP 97.6; O2SAT 98
[2016-05-16 16:02] VITALS: BP 129/78; PULSE 66; RESP 18; TEMP 96.7; O2SAT 99
[2016-05-16 20:00] VITALS: BP 126/74; PULSE 70; RESP 20; TEMP 97.4; O2SAT 96
[2016-05-17] VITALS (7 sets, daily range): BP systolic 111–140; BP diastolic 71–81; PULSE 63–77; RESP 17–20; TEMP 96.1–97.3; O2SAT 93–98
[2016-05-17] MEDS: levETIRAcetam 500 MG/5 ML UDC PO SCH ×2 (08:21→21:20)
[2016-05-17] MEDS: METHADONE HCL 10 MG/10 ML ORAL SOLUTION G-TUBE SCH ×2 (08:21→21:20)
[2016-05-17] MEDS: LISINOPRIL 10 MG TAB PO SCH (08:22)
[2016-05-17] MEDS: METOPROLOL TARTRATE 25 MG TAB PO/GT SCH ×2 (08:22→21:20)
[2016-05-17 08:28] LABS: AUTOMATED NEUTROPHIL # 3.8 TH/MM3 (1.8-7.7); BASOPHIL % 0.4 % (0.0-2.0); EOSINOPHIL # 0.2 TH/MM3 (0-0.4); EOSINOPHIL % 2.1 % (0.0-4.0); HEMATOCRIT 39.7 % (39.0-51.0); HEMO FLAGS DIFF FINAL; LYMPH % 39.5 % (9.0-44.0); LYMPHOCYTE # 3.1 TH/MM3 (1.0-4.8); MEAN CELL VOLUME 86.2 FL (80.0-100.0); MEAN CORPUSCULAR HEMOGLOBIN 29.1 PG (27.0-34.0); MEAN CORPUSCULAR HGB CONC 33.8 % (32.0-36.0); MONO % 9.4 % (0.0-8.0); NEUT % 48.6 % (16.0-70.0); PLATELET COUNT 342 TH/MM3 (150-450); RED BLOOD COUNT 4.61 MIL/MM3 (4.50-5.90); RED CELL DISTRIBUTION WIDTH 15.7 % (11.6-17.2); WHITE BLOOD COUNT 7.9 TH/MM3 (4.0-11.0)
[2016-05-17 08:48] LABS: BICARBONATE 26.8 MEQ/L (21.0-32.0); POTASSIUM 4.3 MEQ/L (3.5-5.1)
--- NOTE | 2016-05-17 09:25 | HHI.PR ---
Subjective Remarks Follow-up intracranial hemorrhage 05/16/16-patient seen and examined; alert and following commands. No acute event overnight 05/17/16-patient seen and examined; no change and patient appears stable; answered [place] to almost every questions. Afebrile Objective Vitals Vital Signs Date Time Temp Pulse Resp B/P Pulse Ox O2 Delivery O2 Flow Rate FiO2 05/17/16 06:52 96.9 63 20 111/71 98 05/17/16 00:00 96.3 77 18 121/74 93 05/16/16 20:00 97.4 70 20 126/74 96 05/16/16 16:02 96.7 66 18 129/78 99 05/16/16 11:48 97.6 60 15 119/74 98 I/O 05/16/16 05/16/16 05/16/16 05/17/16 05/17/16 05/17/16 07:00 15:00 23:00 07:00 15:00 23:00 Intake Total 780 ml 240 ml 787 ml Output Total 1900 ml 250 ml Balance -1120 ml 240 ml 787 ml -250 ml Intake Oral 780 ml 240 ml Tube Feeding 787 ml Output Urine Total 1900 ml 250 ml # Voids 2 3 # Bowel Movements 0 0 0 0 Result Diagram: 05/17/1671605/17/16716 Objective Remarks GENERAL: NAD SKIN: Warm and dry. HEAD: Normocephalic. EYES: No scleral icterus. No injection or drainage. NECK: Supple, trachea midline. No JVD or lymphadenopathy. CARDIOVASCULAR: Regular rate and rhythm without murmurs, gallops, or rubs. RESPIRATORY: Breath sounds equal bilaterally. No accessory muscle use. GASTROINTESTINAL: Abdomen soft, non-tender, nondistended. MUSCULOSKELETAL: No cyanosis, or edema. BACK: Nontender without obvious deformity. No CVA tenderness. Procedures 02/14 with right frontal bur hole and left subclavian line placement 02/15 with right occipital craniectomy with SDH evacuation 02/20 tracheostomy and PEG placement 02/25 left frontal temporoparietal decompressive craniotomy 03/06 PICC 03/29 bone flap replacement Date of Insertion: Apr 10, 2016 Date of Removal: Apr 22, 2016 Date of Insertion: Mar 06, 2016 Line: PICC Side: Right Location: Antecubital A/P Problem List: (1) HTN (hypertension) Status: Acute (2) Traumatic brain injury Status: Acute Assessment and Plan 65-year-old male with 1. S/P traumatic brain injury: Initial head CT with right occipital bone fracture along with intraparenchymal hemorrhage, bilateral subdural hematomas, and subarachnoid hemorrhages. Patient is status post right frontal bur hole, right occipital craniectomy with SDH evacuation, PEG placement, left frontal temporoparietal decompressive craniotomy, and subsequent bone flap replacement. -Continue PT/ST/OT. Continue Keppra for seizure prophylaxis- neurosurgery signed off 2. Protein Calorie Malnutrition: Appreciate dietary recommendations to continue Jevity 1.5 at 100 mL per hour from [id number] and regular trays during the day. Encouraged oral intake. 3. HTN: Continue lisinopril and Metoprolol 25 mg twice a day. 4. Urinary retention: Resolved 5. DVT prophylaxis: Lovenox subcutaneous. 6. Insomnia- Benadryl PRN Continue with current care Discharge Planning Awaiting placement Norman Xiong MD May 17, 2016 09:25
[2016-05-17] MEDS: ENOXAPARIN SODIUM 40 MG/0.4 ML SYRINGE SQ SCH (11:11)
[2016-05-18 05:58] VITALS: BP 120/69; PULSE 72; RESP 19; TEMP 96.9; O2SAT 96
[2016-05-18 08:05] VITALS: BP 127/75; PULSE 67; RESP 18; TEMP 95.8; O2SAT 97
[2016-05-18] MEDS: levETIRAcetam 500 MG/5 ML UDC PO SCH ×2 (08:43→20:04)
[2016-05-18] MEDS: METHADONE HCL 10 MG/10 ML ORAL SOLUTION G-TUBE SCH ×2 (08:43→20:04)
[2016-05-18] MEDS: LISINOPRIL 10 MG TAB PO SCH (08:43)
[2016-05-18] MEDS: METOPROLOL TARTRATE 25 MG TAB PO/GT SCH ×2 (08:43→20:05)
--- NOTE | 2016-05-18 09:35 | HHI.PR ---
Subjective Remarks Follow-up intracranial hemorrhage 05/16/16-patient seen and examined; alert and following commands. No acute event overnight 05/17/16-patient seen and examined; no change and patient appears stable; answered [place] to almost every questions. Afebrile 05/18/16-patient seen and examined; no change and stable. Objective Vitals Vital Signs Date Time Temp Pulse Resp B/P Pulse Ox O2 Delivery O2 Flow Rate FiO2 05/18/16 08:05 95.8 67 18 127/75 97 05/18/16 05:58 96.9 72 19 120/69 96 05/17/16 20:00 97.3 70 18 140/74 95 05/17/16 17:20 97.3 66 17 136/75 97 05/17/16 13:21 97.3 64 18 125/81 96 05/17/16 10:15 98 I/O 05/17/16 05/17/16 05/17/16 05/18/16 05/18/16 05/18/16 06:59 14:59 22:59 06:59 14:59 22:59 Intake Total 787 ml 240 ml 1000 ml Output Total 250 ml 350 ml Balance 787 ml -250 ml -110 ml 1000 ml Intake Oral 240 ml Tube Feeding 787 ml 1000 ml Output Urine Total 250 ml 350 ml # Voids 3 1 # Bowel Movements 0 2 Result Diagram: 05/17/1617 05/17/16716 Objective Remarks GENERAL: NAD SKIN: Warm and dry. HEAD: Normocephalic. EYES: No scleral icterus. No injection or drainage. NECK: Supple, trachea midline. No JVD or lymphadenopathy. CARDIOVASCULAR: Regular rate and rhythm without murmurs, gallops, or rubs. RESPIRATORY: Breath sounds equal bilaterally. No accessory muscle use. GASTROINTESTINAL: Abdomen soft, non-tender, nondistended. MUSCULOSKELETAL: No cyanosis, or edema. BACK: Nontender without obvious deformity. No CVA tenderness. Procedures 02/14 with right frontal bur hole and left subclavian line placement 02/15 with right occipital craniectomy with SDH evacuation 02/20 tracheostomy and PEG placement 02/25 left frontal temporoparietal decompressive craniotomy 03/06 PICC 03/29 bone flap replacement Date of Insertion: Apr 10, 2016 Date of Removal: Apr 22, 2016 Date of Insertion: Mar 06, 2016 Line: PICC Side: Right Location: Antecubital A/P Problem List: (1) HTN (hypertension) Status: Acute (2) Traumatic brain injury Status: Acute Assessment and Plan 65-year-old male with 1. S/P traumatic brain injury: Initial head CT with right occipital bone fracture along with intraparenchymal hemorrhage, bilateral subdural hematomas, and subarachnoid hemorrhages. Patient is status post right frontal bur hole, right occipital craniectomy with SDH evacuation, PEG placement, left frontal temporoparietal decompressive craniotomy, and subsequent bone flap replacement. -Continue PT/ST/OT. Continue Keppra for seizure prophylaxis- neurosurgery signed off 2. Protein Calorie Malnutrition: Appreciate dietary recommendations to continue Jevity 1.5 at 100 mL per hour from [id number] and regular trays during the day. Encouraged oral intake. 3. HTN: Continue lisinopril and Metoprolol 25 mg twice a day. 4. Urinary retention: Resolved 5. DVT prophylaxis: Lovenox subcutaneous. 6. Insomnia- Benadryl PRN Continue with current care Discharge Planning Awaiting placement Norman Xiong MD May 18, 2016 09:35
[2016-05-18 12:00] VITALS: BP 110/66; PULSE 62; RESP 18; TEMP 96.4; O2SAT 96
[2016-05-18] MEDS: ENOXAPARIN SODIUM 40 MG/0.4 ML SYRINGE SQ SCH (12:40)
[2016-05-18] MEDS: IBUPROFEN SUSP 100 MG/5 ML UDC PO PRN (12:42)
[2016-05-18 16:00] VITALS: BP 125/76; PULSE 68; RESP 18; TEMP 95.8; O2SAT 96
[2016-05-18 20:20] VITALS: BP 109/69; PULSE 61; RESP 18; TEMP 97; O2SAT 95
[2016-05-19 00:12] VITALS: BP 123/76; PULSE 70; RESP 18; TEMP 96.9; O2SAT 97
[2016-05-19 04:05] VITALS: BP 104/68; PULSE 73; RESP 18; TEMP 97.3; O2SAT 96
[2016-05-19 08:13] VITALS: BP 138/82; PULSE 75; RESP 18; TEMP 96; O2SAT 96
[2016-05-19] MEDS: METOPROLOL TARTRATE 25 MG TAB PO/GT SCH ×2 (08:27→20:23)
[2016-05-19] MEDS: levETIRAcetam 500 MG/5 ML UDC PO SCH ×2 (08:27→20:23)
[2016-05-19] MEDS: LISINOPRIL 10 MG TAB PO SCH (08:27)
[2016-05-19] MEDS: METHADONE HCL 10 MG/10 ML ORAL SOLUTION G-TUBE SCH ×2 (08:28→20:23)
--- NOTE | 2016-05-19 11:37 | HHI.PR ---
Subjective Remarks Follow up for intracranial hemorrhage with aphasia. The patient is seen sitting upright in bedside chair, states he's walking much better, only using a cane, and is eating more. He does complain that he is woken up several times throughout the night and then he cannot go back to sleep. We discussed trial of holding vitals between midnight and 6am for now, he is extremely happy with this. Otherwise he has no specific medical complaints today. Objective Vitals Vital Signs Date Time Temp Pulse Resp B/P Pulse Ox O2 Delivery O2 Flow Rate FiO2 05/19/16 08:13 96.0 75 18 138/82 96 05/19/16 04:05 97.3 73 18 104/68 96 05/19/16 00:12 96.9 70 18 123/76 97 05/18/16 20:20 97.0 61 18 109/69 95 05/18/16 16:00 95.8 68 18 125/76 96 05/18/16 12:00 96.4 62 18 110/66 96 I/O 05/18/16 05/18/16 05/18/16 05/19/16 05/19/16 05/19/16 06:59 14:59 22:59 06:59 14:59 22:59 Intake Total 1000 ml 480 ml 1000 ml Balance 1000 ml 480 ml 1000 ml Intake Oral 480 ml Tube Feeding 1000 ml 1000 ml # Voids 1 2 1 3 # Bowel Movements 1 Result Diagram: 05/17/16 0717 05/17/16 0717 Imaging Last Impressions Chest X-Ray 03/27/16 0000 Signed Impressions: Service Date/Time: Sunday, March 27, 2016 03:46 - CONCLUSION: No significant change mild parenchymal opacities of the left lung. Duy Skelton MD Liver Ultrasound 03/18/16 0000 Signed Impressions: Service Date/Time: Friday, March 18, 2016 17:01 - CONCLUSION: Ultrasound appearance of the liver and other right upper quadrant structures is within normal limits. Duy Skelton MD Head CT 03/09/16 0600 Signed Impressions: Service Date/Time: Wednesday, March 09, 2016 04:21 - CONCLUSION: 1. Mild improvement of the cerebral edema in the left cerebral hemisphere. 2. Otherwise , no other new or significant changes. Alli Jj MD Head CTA 02/16/16 0000 Signed Impressions: Service Date/Time: Tuesday, February 16, 2016 04:31 - CONCLUSION: I do not see an etiology for the patient's cerebellar hemorrhage on the right. Small supratentorial vessels in a 65-year-old. Etiology of this finding is not apparent. Trace subdural blood and subarachnoid blood persist over both convexities. Earl Gaitan MD FACR Cervical Spine CT 02/15/16 0445 Signed Impressions: Service Date/Time: January 04:57 - CONCLUSION: 1. Slight neural foramina compromise bilateral C4-5 and C5-6 in addition to bilateral lateral recess compromise at these levels and no significant thecal sac stenosis. 2. There is also slight neural foramina compromise right C3-C4. 3. Nonspecific lucencies in the spine may be osteoporotic changes, however myeloma is difficult to exclude. Ariadne Feng MD Objective Remarks GENERAL: Well-nourished, well-developed middle aged male patient in [facility]. SKIN: Warm and dry. No rash. HEAD: Normocephalic. Atraumatic. NECK: Supple. Trachea midline. CARDIOVASCULAR: Regular rate and rhythm. S1, S2 noted. No murmur appreciated. RESPIRATORY: No accessory muscle use. Clear to auscultation. Breath sounds equal bilaterally. GASTROINTESTINAL: Abdomen soft, non-tender, nondistended. Normoactive bowel sounds x4. PEG in place. MUSCULOSKELETAL: No obvious deformities. Extremities without clubbing, cyanosis , or edema. NEUROLOGICAL: Awake and alert, oriented to self. Speech not slurred, however often with expressive deficit/nonsensical speech. Moves all extremities spontaneously, right sided upper and lower extremity 3-4/5 strength, left upper and lower extremity 5/5 strength. Procedures 02/14 with right frontal bur hole and left subclavian line placement 02/15 with right occipital craniectomy with SDH evacuation 02/20 tracheostomy and PEG placement 02/25 left frontal temporoparietal decompressive craniotomy 03/06 PICC 03/29 bone flap replacement Medications and IVs Current Medications Medications (Trade) Dose Ordered Sig/Rodney Route Start Time Stop Time Status Last Admin Miscellaneous Information 1 Q361D XX 02/15/16 04:00 (Tylenol) 650 mg Q4H PRN PO 03/29/16 10:30 04/25/16 06:18 (Methadone Liq) 2.5 mg Q12HR G-TUBE 03/30/16 21:00 05/19/16 08:28 (Motrin Liq) 400 mg Q6H PRN PO 04/01/16 11:15 05/18/16 12:42 (Lovenox Inj) 40 mg Q24H SQ 04/01/16 12:00 05/18/16 12:40 (Keppra Liq) 1,000 mg Q12HR PO 04/15/16 21:00 05/19/16 08:27 (Prinivil) 10 mg DAILY PO 04/26/16 09:00 05/19/16 08:27 (Colace) 100 mg BID PRN PO 04/28/16 11:00 (Milk Of Magnesia Liq) 30 ml Q6H PRN PO 04/28/16 11:45 (Lopressor) 25 mg Q12HR PO/GT 04/28/16 21:00 05/19/16 08:27 (Benadryl) 50 mg HS PRN PO 05/14/16 08:30 Urinary Catheter: No Date of Insertion: Apr 10, 2016 Date of Removal: Apr 22, 2016 Vascular Central Line Catheter: No Date of Insertion: Mar 06, 2016 Line: PICC Side: Right Location: Antecubital A/P Problem List: (1) HTN (hypertension) Status: Acute (2) Traumatic brain injury Status: Acute Assessment and Plan 65-year-old male with: 1. S/P traumatic brain injury: Initial head CT with right occipital bone fracture along with intraparenchymal hemorrhage, bilateral subdural hematomas, and subarachnoid hemorrhages. S/p right frontal bur hole, right occipital craniectomy with SDH evacuation, PEG placement, left frontal temporoparietal decompressive craniotomy, and subsequent bone flap replacement. Continue PT/ST/ OT. On Keppra bid for seizure prophylaxis. Neurosurgery signed off. 2. Protein Calorie malnutrition: Dietitian following, last assess 05/14, taking 75-100% po, meeting low end of nutrition needs. Continue nighttime tube feeds with Jevity 1.5, tray during the day. Encourage oral intake. Record % of meal intake in EMR per electric installer. 3. HTN: Stable. Continue on metoprolol 25 mg bid and lisinopril 10 mg daily. Monitor and adjust BP meds as needed. 4. Urinary retention: Cuenca removed 04/22 and patient passed voiding trial. Now voiding spontaneously. Monitor. Resolved. 5. Insomnia: Benadryl prn. 6. DVT prophylaxis: Lovenox Discharge Planning Per OT needs 24 h supervision at discharge No payor source for [facility] or home health care There is a friend he may stay with however patient still needs quite a bit of supervision, he will need to also taper off of night tube feedings Case management assisting with discharge planning. Rosa Rodriguez PA-C May 19, 2016 11:37
[2016-05-19] MEDS: ENOXAPARIN SODIUM 40 MG/0.4 ML SYRINGE SQ SCH (11:55)
[2016-05-19 12:00] VITALS: BP 132/79; PULSE 62; RESP 18; TEMP 95.9; O2SAT 95
[2016-05-19 16:00] VITALS: BP 130/79; PULSE 69; RESP 18; TEMP 95.4; O2SAT 97
[2016-05-19 20:00] VITALS: BP 118/75; PULSE 76; RESP 16; TEMP 96.8; O2SAT 95
[2016-05-20] VITALS: BP 125/69; PULSE 65; RESP 16; TEMP 97.1; O2SAT 98
[2016-05-20 04:00] VITALS: BP 107/67; PULSE 81; RESP 16; TEMP 96.5; O2SAT 97
[2016-05-20 08:00] VITALS: BP 121/72; PULSE 90; RESP 18; TEMP 98.7; O2SAT 98
[2016-05-20] MEDS: LISINOPRIL 10 MG TAB PO SCH (08:35)
[2016-05-20] MEDS: METOPROLOL TARTRATE 25 MG TAB PO/GT SCH ×2 (08:35→21:44)
[2016-05-20] MEDS: levETIRAcetam 500 MG/5 ML UDC PO SCH ×2 (08:35→21:44)
[2016-05-20] MEDS: METHADONE HCL 10 MG/10 ML ORAL SOLUTION G-TUBE SCH ×2 (08:36→21:45)
[2016-05-20 12:00] VITALS: BP 123/76; PULSE 71; RESP 18; TEMP 98.4; O2SAT 98
[2016-05-20] MEDS: ENOXAPARIN SODIUM 40 MG/0.4 ML SYRINGE SQ SCH (12:35)
[2016-05-20 17:02] VITALS: BP 109/66; PULSE 77; RESP 18; TEMP 97.3; O2SAT 98
[2016-05-20 20:00] VITALS: BP 100/58; PULSE 74; RESP 19; TEMP 97.6; O2SAT 95
--- NOTE | 2016-05-20 23:02 | HHI.PR ---
Subjective Remarks Follow up for intracranial hemorrhage with aphasia. patient did have some vomiting after lunch today. Nonbloody. Denies any nausea. Says he experiences this occasionally. he Will inform nursing if this happens again. Objective Vital Signs Date Time Temp Pulse Resp B/P Pulse Ox O2 Delivery O2 Flow Rate FiO2 05/20/16 20:00 97.6 74 19 100/58 95 05/20/16 17:02 97.3 77 18 109/66 98 05/20/16 12:00 98.4 71 18 123/76 98 05/20/16 08:00 98.7 90 18 121/72 98 05/20/16 04:00 96.5 81 16 107/67 97 05/20/16 00:00 97.1 65 16 125/69 98 I/O 05/19/16 05/19/16 05/19/16 05/20/16 05/20/16 05/20/16 07:00 15:00 23:00 07:00 15:00 23:00 Intake Total 1000 ml 840 ml 720 ml 60 ml 240 ml 250 ml Output Total 0 ml Balance 1000 ml 840 ml 720 ml 60 ml 240 ml 250 ml Intake Oral 840 ml 720 ml 60 ml 240 ml 250 ml Tube Feeding 1000 ml Stool Total 0 ml # Voids 3 4 3 3 4 3 # Bowel Movements 1 1 1 Result Diagram: 05/17/1671605/17/16716 Procedures 02/14 with right frontal bur hole and left subclavian line placement 02/15 with right occipital craniectomy with SDH evacuation 02/20 tracheostomy and PEG placement 02/25 left frontal temporoparietal decompressive craniotomy 03/06 PICC 03/29 bone flap replacement Objective Remarks GENERAL: sitting up in chair. No acute distress. Alert. Pleasant. SKIN: Warm and dry. HEAD: Normocephalic. EYES: No scleral icterus. No injection or drainage. NECK: Supple, trachea midline. No JVD or lymphadenopathy. CARDIOVASCULAR: Regular rate and rhythm without murmurs, gallops, or rubs. RESPIRATORY: Breath sounds equal bilaterally. No accessory muscle use. GASTROINTESTINAL: Abdomen soft, non-tender, nondistended. MUSCULOSKELETAL: No cyanosis, or edema. BACK: Nontender without obvious deformity. No CVA tenderness. neurologic. Left-sided strength 5/5. Right-sided strength 4/5 A/P Assessment and Plan 65-year-old male with: 1. S/P traumatic brain injury: Initial head CT with right occipital bone fracture along with intraparenchymal hemorrhage, bilateral subdural hematomas, and subarachnoid hemorrhages. S/p right frontal bur hole, right occipital craniectomy with SDH evacuation, PEG placement, left frontal temporoparietal decompressive craniotomy, and subsequent bone flap replacement. Continue PT/ST/ OT. On Keppra bid for seizure prophylaxis. Neurosurgery signed off. 2. Protein Calorie malnutrition: Dietitian following, last assess 05/14, taking 75-100% po, meeting low end of nutrition needs. Continue nighttime tube feeds with Jevity 1.5, tray during the day. Encourage oral intake. Record % of meal intake in EMR per autocad. 3. HTN: Stable. Continue on metoprolol 25 mg bid and lisinopril 10 mg daily. continue toMonitor and adjust BP meds as needed. 4. Urinary retention: Cuenca removed 04/22 and patient passed voiding trial. Now voiding spontaneously. Monitor. Resolved. 5. Insomnia: Benadryl prn. 6. nausea and vomiting this morning. appears to have resolved. Continue to monitor. Patient to alert and nursing if further episodes. Antiemetics when necessary. 7. DVT prophylaxis: Lovenox Discharge Planning Per OT needs 24 h supervision at discharge No payor source for penitentiary or home health care There is a friend he may stay with however patient still needs quite a bit of supervision, he will need to also taper off of night tube feedings Case management assisting with discharge planning. Lane Yuan MD May 20, 2016 23:02
[2016-05-21 00:48] VITALS: BP 93/51; PULSE 59; RESP 18; TEMP 97.8; O2SAT 96
[2016-05-21 04:09] VITALS: BP 98/60; PULSE 67; RESP 16; TEMP 97.2; O2SAT 95
[2016-05-21 08:00] VITALS: BP 129/70; PULSE 75; RESP 18; TEMP 98; O2SAT 97
[2016-05-21] MEDS: levETIRAcetam 500 MG/5 ML UDC PO SCH ×2 (09:47→22:02)
[2016-05-21] MEDS: METHADONE HCL 10 MG/10 ML ORAL SOLUTION G-TUBE SCH ×2 (09:48→22:01)
[2016-05-21] MEDS: METOPROLOL TARTRATE 25 MG TAB PO/GT SCH ×2 (09:48→22:02)
[2016-05-21] MEDS: LISINOPRIL 10 MG TAB PO SCH (09:48)
--- NOTE | 2016-05-21 12:21 | HHI.PR ---
Subjective Remarks Follow-up for intracranial hemorrhage with aphasia. Patient has no specific medical complaints. He is seen standing at bedside, appears steady on his feet. He states he is getting stronger every day. He has continued aphasia. He continues to complain of interrupted sleep at night. Objective Vitals Vital Signs Date Time Temp Pulse Resp B/P Pulse Ox O2 Delivery O2 Flow Rate FiO2 05/21/16 04:09 97.2 67 16 98/60 95 05/21/16 00:48 97.8 59 18 93/51 96 05/20/16 20:00 97.6 74 19 100/58 95 05/20/16 17:02 97.3 77 18 109/66 98 I/O 05/20/16 05/20/16 05/20/16 05/21/16 05/21/16 05/21/16 07:00 15:00 23:00 07:00 15:00 23:00 Intake Total 60 ml 240 ml 250 ml Output Total 0 ml Balance 60 ml 240 ml 250 ml Intake Oral 60 ml 240 ml 250 ml Stool Total 0 ml # Voids 3 4 3 2 # Bowel Movements 1 Result Diagram: 05/17/16 0717 05/17/16 0717 Imaging Last Impressions Chest X-Ray 03/27/16 0000 Signed Impressions: Service Date/Time: Sunday, March 27, 2016 03:46 - CONCLUSION: No significant change mild parenchymal opacities of the left lung. Duy Skelton MD Liver Ultrasound 03/18/16 0000 Signed Impressions: Service Date/Time: Friday, March 18, 2016 17:01 - CONCLUSION: Ultrasound appearance of the liver and other right upper quadrant structures is within normal limits. Duy Skelton MD Head CT 03/09/16 0600 Signed Impressions: Service Date/Time: Wednesday, March 09, 2016 04:21 - CONCLUSION: 1. Mild improvement of the cerebral edema in the left cerebral hemisphere. 2. Otherwise , no other new or significant changes. Alli Jj MD Head CTA 02/16/16 0000 Signed Impressions: Service Date/Time: Tuesday, February 16, 2016 04:31 - CONCLUSION: I do not see an etiology for the patient's cerebellar hemorrhage on the right. Small supratentorial vessels in a 65-year-old. Etiology of this finding is not apparent. Trace subdural blood and subarachnoid blood persist over both convexities. Earl Gaitan MD FACR Cervical Spine CT 02/15/16 0445 Signed Impressions: Service Date/Time: January 04:57 - CONCLUSION: 1. Slight neural foramina compromise bilateral C4-5 and C5-6 in addition to bilateral lateral recess compromise at these levels and no significant thecal sac stenosis. 2. There is also slight neural foramina compromise right C3-C4. 3. Nonspecific lucencies in the spine may be osteoporotic changes, however myeloma is difficult to exclude. Ariadne Feng MD Objective Remarks GENERAL: Well-nourished, well-developed middle aged male patient in [facility]. SKIN: Warm and dry. No rash. HEAD: Normocephalic. Atraumatic. NECK: Supple. Trachea midline. CARDIOVASCULAR: Regular rate and rhythm. S1, S2 noted. No murmur appreciated. RESPIRATORY: No accessory muscle use. Clear to auscultation. Breath sounds equal bilaterally. GASTROINTESTINAL: Abdomen soft, non-tender, nondistended. Normoactive bowel sounds x4. PEG in place. MUSCULOSKELETAL: No obvious deformities. Extremities without clubbing, cyanosis , or edema. NEUROLOGICAL: Awake and alert, oriented to self. Speech not slurred, however often with expressive deficit. Moves all extremities spontaneously, right sided upper and lower extremity 4/5 strength, left upper and lower extremity 5/5 strength. Procedures 02/14 with right frontal bur hole and left subclavian line placement 02/15 with right occipital craniectomy with SDH evacuation 02/20 tracheostomy and PEG placement 02/25 left frontal temporoparietal decompressive craniotomy 03/06 PICC 03/29 bone flap replacement Medications and IVs Current Medications Medications (Trade) Dose Ordered Sig/Rodney Route Start Time Stop Time Status Last Admin Miscellaneous Information 1 Q361D XX 02/15/16 04:00 (Tylenol) 650 mg Q4H PRN PO 03/29/16 10:30 04/25/16 06:18 (Methadone Liq) 2.5 mg Q12HR G-TUBE 03/30/16 21:00 05/21/16 09:48 (Motrin Liq) 400 mg Q6H PRN PO 04/01/16 11:15 05/18/16 12:42 (Lovenox Inj) 40 mg Q24H SQ 04/01/16 12:00 05/20/16 12:35 (Keppra Liq) 1,000 mg Q12HR PO 04/15/16 21:00 05/21/16 09:47 (Prinivil) 10 mg DAILY PO 04/26/16 09:00 05/21/16 09:48 (Colace) 100 mg BID PRN PO 04/28/16 11:00 (Milk Of Magnesia Liq) 30 ml Q6H PRN PO 04/28/16 11:45 (Lopressor) 25 mg Q12HR PO/GT 04/28/16 21:00 05/21/16 09:48 (Benadryl) 50 mg HS PRN PO 05/14/16 08:30 Urinary Catheter: No Date of Insertion: Apr 10, 2016 Date of Removal: Apr 22, 2016 Vascular Central Line Catheter: No Date of Insertion: Mar 06, 2016 Line: PICC Side: Right Location: Antecubital A/P Problem List: (1) HTN (hypertension) Status: Acute (2) Traumatic brain injury Status: Acute Assessment and Plan 65-year-old male with: 1. S/P traumatic brain injury: Initial head CT with right occipital bone fracture along with intraparenchymal hemorrhage, bilateral subdural hematomas, and subarachnoid hemorrhages. S/p right frontal bur hole, right occipital craniectomy with SDH evacuation, PEG placement, left frontal temporoparietal decompressive craniotomy, and subsequent bone flap replacement. Continue PT/ST/ OT. On Keppra bid for seizure prophylaxis. Neurosurgery signed off. 2. Protein Calorie malnutrition: Dietitian following, last assess 05/14, taking 75-100% po, meeting low end of nutrition needs. Continue nighttime tube feeds with Jevity 1.5, tray during the day. Encourage oral intake. Record % of meal intake in EMR per geospatial program management officer. 3. HTN: Stable. Continue on metoprolol 25 mg bid and lisinopril 10 mg daily. Monitor and adjust BP meds as needed. 4. Urinary retention: Cuenca removed 04/22 and patient passed voiding trial. Now voiding spontaneously. Monitor. Resolved. 5. Insomnia: Benadryl prn. Avoid vital signs and other interruptions between midnight and 6am to assist with establishing regular sleep schedule. 6. DVT prophylaxis: Lovenox Discharge Planning Per OT needs 24 h supervision at discharge No payor source for alf or home health care There is a friend he may stay with however patient still needs quite a bit of supervision, he will need to also taper off of night tube feedings Case management assisting with discharge planning. Rosa Rodriguez PA-C May 21, 2016 12:21
[2016-05-21] MEDS: ENOXAPARIN SODIUM 40 MG/0.4 ML SYRINGE SQ SCH (12:45)
[2016-05-21 13:24] VITALS: BP 102/75; PULSE 61; RESP 18; TEMP 98.2; O2SAT 99
[2016-05-21 20:55] VITALS: BP 124/77; PULSE 65; RESP 18; TEMP 97.4; O2SAT 97
[2016-05-22 00:26] VITALS: BP 92/52; PULSE 60; RESP 18; TEMP 97; O2SAT 97
[2016-05-22 08:00] VITALS: BP 104/58; PULSE 87; RESP 18; TEMP 96.6; O2SAT 98
[2016-05-22] MEDS: LISINOPRIL 10 MG TAB PO SCH (08:47)
[2016-05-22] MEDS: METOPROLOL TARTRATE 25 MG TAB PO/GT SCH ×2 (08:47→21:08)
[2016-05-22] MEDS: levETIRAcetam 500 MG/5 ML UDC PO SCH ×2 (09:17→21:08)
[2016-05-22] MEDS: METHADONE HCL 10 MG/10 ML ORAL SOLUTION G-TUBE SCH ×2 (09:17→21:08)
[2016-05-22 12:00] VITALS: BP 116/74; PULSE 86; RESP 18; TEMP 97.8; O2SAT 99
[2016-05-22] MEDS: ENOXAPARIN SODIUM 40 MG/0.4 ML SYRINGE SQ SCH (13:20)
--- NOTE | 2016-05-22 16:13 | HHI.PR ---
Subjective Remarks Follow-up for intracranial hemorrhage with aphasia. The patient has no specific complaints today. He states he is tired because it's rainy outside so he hasn't been out of bed much today. He has been eating and drinking well. He denies any fevers or chills. Objective Vitals Vital Signs Date Time Temp Pulse Resp B/P Pulse Ox O2 Delivery O2 Flow Rate FiO2 05/22/16 12:00 97.8 86 18 116/74 99 05/22/16 08:00 96.6 87 18 104/58 98 05/22/16 00:26 97.0 60 18 92/52 97 05/21/16 20:55 97.4 65 18 124/77 97 I/O 05/21/16 05/21/16 05/21/16 05/22/16 05/22/16 05/22/16 07:00 15:00 23:00 07:00 15:00 23:00 Intake Total 480 ml 60 ml Output Total 300 ml Balance 480 ml -240 ml Intake Oral 480 ml 60 ml Output Urine Total 300 ml # Voids 2 4 # Bowel Movements 0 Objective Remarks GENERAL: Well-developed well-nourished. In no acute distress. SKIN: Warm and dry. No lesions noted. HEENT: Normocephalic. Pupils equal and round. Mucous membranes pink and moist. CARDIOVASCULAR: Regular rate and rhythm. No murmur appreciated. RESPIRATORY: No accessory muscle use. Clear to auscultation. Breath sounds equal bilaterally. GASTROINTESTINAL: Abdomen soft, non-tender, nondistended. Bowel sounds x4. PEG tube in place. MUSCULOSKELETAL: No obvious deformities. No clubbing or cyanosis. No edema. NEUROLOGICAL: Awake and alert. Moves upper and lower extremities spontaneously. Normal speech, occasionally nonsensical. PSYCHIATRIC: Appropriate mood and affect; insight and judgment fair. Procedures 02/14 with right frontal bur hole and left subclavian line placement 02/15 with right occipital craniectomy with SDH evacuation 02/20 tracheostomy and PEG placement 02/25 left frontal temporoparietal decompressive craniotomy 03/06 PICC 03/29 bone flap replacement Date of Insertion: Apr 10, 2016 Date of Removal: Apr 22, 2016 Date of Insertion: Mar 06, 2016 Line: PICC Side: Right Location: Antecubital A/P Problem List: (1) HTN (hypertension) Status: Acute (2) Traumatic brain injury Status: Acute Assessment and Plan 65-year-old male with: 1. S/P traumatic brain injury: Initial head CT with right occipital bone fracture along with intraparenchymal hemorrhage, bilateral subdural hematomas, and subarachnoid hemorrhages. Patient is status post right frontal bur hole, right occipital craniectomy with SDH evacuation, PEG placement, left frontal temporoparietal decompressive craniotomy, and subsequent bone flap replacement. Neurosurgery signed off. - Continue PT/speech therapy/occupational therapy - Keppra bid for seizure prophylaxis- 2. Protein Calorie malnutrition: Dietitian following, last assess 05/14, taking 75-100% po, meeting low end of nutrition needs. Continue nighttime tube feeds with Jevity 1.5, tray during the day. Encourage oral intake. Record % of meal intake in EMR per market risk manager. 3. HTN: Chronic, stable. Currently on metoprolol 25 mg twice daily and lisinopril 10 mg once daily, continue. Monitor and adjust BP meds as needed. 4. Urinary retention: Cuenca removed 04/22 and patient passed voiding trial. Now voiding spontaneously. Monitor. 5. DVT prophylaxis: Lovenox subcutaneous. Discharge Planning Per OT needs 24 h supervision at discharge No payor source for longterm or home health care There is a friend he may stay with however patient still needs quite a bit of supervision, he will need to also taper off of night tube feedings Case management assisting with discharge planning. Ernesto Huntley May 22, 2016 16:13
[2016-05-22 17:30] VITALS: BP 139/94; PULSE 82; RESP 18; TEMP 97.7; O2SAT 95
[2016-05-22 20:00] VITALS: BP 130/89; PULSE 85; RESP 20; TEMP 98.2; O2SAT 99
[2016-05-23 08:00] VITALS: BP 142/82; PULSE 79; RESP 18; TEMP 96.9; O2SAT 96
[2016-05-23] MEDS: METOPROLOL TARTRATE 25 MG TAB PO/GT SCH ×2 (08:53→22:20)
[2016-05-23] MEDS: levETIRAcetam 500 MG/5 ML UDC PO SCH ×2 (08:53→22:19)
[2016-05-23] MEDS: LISINOPRIL 10 MG TAB PO SCH (08:53)
[2016-05-23] MEDS: METHADONE HCL 10 MG/10 ML ORAL SOLUTION G-TUBE SCH ×2 (08:57→22:19)
[2016-05-23] MEDS: ENOXAPARIN SODIUM 40 MG/0.4 ML SYRINGE SQ SCH (11:26)
[2016-05-23 12:00] VITALS: BP 117/74; PULSE 64; RESP 18; TEMP 96.8; O2SAT 97
--- NOTE | 2016-05-23 15:03 | HHI.PR ---
Subjective Remarks Follow-up for intracranial hemorrhage with aphasia. No complaints today. He's been up ambulating today. He states she's been eating and drinking well. Objective Vitals Vital Signs Date Time Temp Pulse Resp B/P Pulse Ox O2 Delivery O2 Flow Rate FiO2 05/23/16 12:00 96.8 64 18 117/74 97 05/23/16 08:00 96.9 79 18 142/82 96 05/22/16 20:00 98.2 85 20 130/89 99 05/22/16 17:30 97.7 82 18 139/94 95 I/O 05/22/16 05/22/16 05/22/16 05/23/16 05/23/16 05/23/16 07:00 15:00 23:00 07:00 15:00 23:00 Intake Total 60 ml 60 ml 0 ml Output Total 300 ml Balance -240 ml 60 ml 0 ml Intake Oral 60 ml 60 ml IV Total 0 ml Output Urine Total 300 ml # Voids 4 3 # Bowel Movements 0 1 Objective Remarks GENERAL: Well-developed well-nourished. In no acute distress. SKIN: Warm and dry. No lesions noted. HEENT: Normocephalic. Pupils equal and round. Mucous membranes pink and moist. CARDIOVASCULAR: Regular rate and rhythm. No murmur appreciated. RESPIRATORY: No accessory muscle use. Clear to auscultation. Breath sounds equal bilaterally. GASTROINTESTINAL: Abdomen soft, non-tender, nondistended. Bowel sounds x4. PEG tube in place. MUSCULOSKELETAL: No obvious deformities. No clubbing or cyanosis. No edema. NEUROLOGICAL: Awake and alert. Moves upper and lower extremities spontaneously. Normal speech, occasionally nonsensical. PSYCHIATRIC: Appropriate mood and affect; insight and judgment fair. Procedures 02/14 with right frontal bur hole and left subclavian line placement 02/15 with right occipital craniectomy with SDH evacuation 02/20 tracheostomy and PEG placement 02/25 left frontal temporoparietal decompressive craniotomy 03/06 PICC 03/29 bone flap replacement Date of Insertion: Apr 10, 2016 Date of Removal: Apr 22, 2016 Date of Insertion: Mar 06, 2016 Line: PICC Side: Right Location: Antecubital A/P Problem List: (1) HTN (hypertension) Status: Acute (2) Traumatic brain injury Status: Acute Assessment and Plan 65-year-old male with: 1. S/P traumatic brain injury: Initial head CT with right occipital bone fracture along with intraparenchymal hemorrhage, bilateral subdural hematomas, and subarachnoid hemorrhages. Patient is status post right frontal bur hole, right occipital craniectomy with SDH evacuation, PEG placement, left frontal temporoparietal decompressive craniotomy, and subsequent bone flap replacement. Neurosurgery signed off. - Continue PT/speech therapy/occupational therapy - Keppra bid for seizure prophylaxis- 2. Protein Calorie malnutrition: Dietitian following, last assess 05/14, taking 75-100% po, meeting low end of nutrition needs. Continue nighttime tube feeds with Jevity 1.5, tray during the day. Encourage oral intake. Record % of meal intake in EMR per shoe sticks repairer. 3. HTN: Chronic, stable. Currently on metoprolol 25 mg twice daily and lisinopril 10 mg once daily, continue. Monitor and adjust BP meds as needed. 4. Urinary retention: Cuenca removed 04/22 and patient passed voiding trial. Now voiding spontaneously. Monitor. 5. DVT prophylaxis: Lovenox subcutaneous. Discharge Planning Per OT needs 24 h supervision at discharge No payor source for half-way or home health care There is a friend he may stay with however patient still needs quite a bit of supervision, he will need to also taper off of night tube feedings Case management assisting with discharge planning. Ernesto Huntley May 23, 2016 15:03 Lane Yuan MD May 24, 2016 00:17
[2016-05-23 16:00] VITALS: BP 138/72; PULSE 63; RESP 18; TEMP 95.7; O2SAT 99
[2016-05-23 21:00] VITALS: BP 125/76; PULSE 71; RESP 18; TEMP 97.1; O2SAT 96
[2016-05-23 21:15] VITALS: BP 122/78; PULSE 73; RESP 17; TEMP 97; O2SAT 97
[2016-05-24 05:40] VITALS: BP 160/68; PULSE 68; RESP 17; TEMP 98.3; O2SAT 97
[2016-05-24 08:00] VITALS: BP 114/77; PULSE 74; RESP 18; TEMP 95.9; O2SAT 97
[2016-05-24] MEDS: levETIRAcetam 500 MG/5 ML UDC PO SCH ×2 (10:48→20:23)
[2016-05-24] MEDS: LISINOPRIL 10 MG TAB PO SCH (10:48)
[2016-05-24] MEDS: METOPROLOL TARTRATE 25 MG TAB PO/GT SCH ×3 (10:49→20:49)
[2016-05-24] MEDS: METHADONE HCL 10 MG/10 ML ORAL SOLUTION G-TUBE SCH ×2 (10:49→20:25)
[2016-05-24 12:00] VITALS: BP 143/83; PULSE 72; RESP 18; TEMP 98.1; O2SAT 98
[2016-05-24] MEDS: ENOXAPARIN SODIUM 40 MG/0.4 ML SYRINGE SQ SCH (12:05)
--- NOTE | 2016-05-24 15:16 | HHI.PR ---
Subjective Remarks Follow-up for intracranial hemorrhage with aphasia. The patient has no acute complaints today. He is ambulating today. Currently sitting up in a chair. He states he plans to make his bed by himself today. He states he's been eating well. Dietary recommendations noted, can discontinue tube feedings. Objective Vitals Vital Signs Date Time Temp Pulse Resp B/P Pulse Ox O2 Delivery O2 Flow Rate FiO2 05/24/16 12:00 98.1 72 18 143/83 98 05/24/16 08:00 95.9 74 18 114/77 97 05/24/16 05:40 98.3 68 17 160/68 97 05/23/16 21:15 97.0 73 17 122/78 97 05/23/16 21:00 97.1 71 18 125/76 96 05/23/16 16:00 95.7 63 18 138/72 99 I/O 05/23/16 05/23/16 05/23/16 05/24/16 05/24/16 05/24/16 06:59 14:59 22:59 06:59 14:59 22:59 Intake Total 480 ml 800 ml 400 ml Balance 480 ml 800 ml 400 ml Intake Oral 480 ml 800 ml 400 ml IV Total 0 ml # Voids 3 4 0 4 # Bowel Movements 1 2 0 0 Objective Remarks GENERAL: Well-developed well-nourished. In no acute distress. SKIN: Warm and dry. No lesions noted. HEENT: Normocephalic. Pupils equal and round. Mucous membranes pink and moist. CARDIOVASCULAR: Regular rate and rhythm. No murmur appreciated. RESPIRATORY: No accessory muscle use. Clear to auscultation. Breath sounds equal bilaterally. GASTROINTESTINAL: Abdomen soft, non-tender, nondistended. Bowel sounds x4. PEG tube in place. MUSCULOSKELETAL: No obvious deformities. No clubbing or cyanosis. No edema. NEUROLOGICAL: Awake and alert. Moves upper and lower extremities spontaneously. Normal speech, occasionally with speaking the wrong word. PSYCHIATRIC: Appropriate mood and affect; insight and judgment fair to normal. Procedures 02/14 with right frontal bur hole and left subclavian line placement 02/15 with right occipital craniectomy with SDH evacuation 02/20 tracheostomy and PEG placement 02/25 left frontal temporoparietal decompressive craniotomy 03/06 PICC 03/29 bone flap replacement Date of Insertion: Apr 10, 2016 Date of Removal: Apr 22, 2016 Date of Insertion: Mar 06, 2016 Line: PICC Side: Right Location: Antecubital A/P Problem List: (1) HTN (hypertension) Status: Acute (2) Traumatic brain injury Status: Acute Assessment and Plan 65-year-old male with: 1. S/P traumatic brain injury: Initial head CT with right occipital bone fracture along with intraparenchymal hemorrhage, bilateral subdural hematomas, and subarachnoid hemorrhages. Patient is status post right frontal bur hole, right occipital craniectomy with SDH evacuation, PEG placement, left frontal temporoparietal decompressive craniotomy, and subsequent bone flap replacement. Neurosurgery signed off. - Continue PT/speech therapy/occupational therapy - Keppra bid for seizure prophylaxis- 2. Protein Calorie malnutrition: Dietitian following, evaluated the patient , recommended discontinuing tube feedings and continue to ensure enlive. Encourage oral intake. Record % of meal intake in EMR per rn interventional. Follow-up with GI for possible removal of PEG. 3. HTN: Chronic, stable. Currently on metoprolol 25 mg twice daily and lisinopril 10 mg once daily, continue. Monitor and adjust BP meds as needed. 4. Urinary retention: Cuenca removed 04/22 and patient passed voiding trial. Now voiding spontaneously. Monitor. 5. DVT prophylaxis: Lovenox subcutaneous. Discussed with case management. Discussed with RN. Discussed with Dr. Yuan. Discharge Planning No payor source for senior care or home health care There is a friend he may stay with however patient still needs quite a bit of supervision, he will need to also taper off of night tube feedings Case management assisting with discharge planning. Ernesto Huntley May 24, 2016 15:16 Lane Yuan MD May 24, 2016 18:14
[2016-05-24 16:00] VITALS: BP 143/83; PULSE 72; RESP 18; TEMP 98.1; O2SAT 100
--- NOTE | 2016-05-24 17:42 | HHI.GIFU ---
Subjective Remarks Patient comfortable in bed denies any complaints not needing to use the PEG tube Objective Vitals I&O Vital Signs Date Time Temp Pulse Resp B/P Pulse Ox O2 Delivery O2 Flow Rate FiO2 05/24/16 12:00 98.1 72 18 143/83 98 05/24/16 08:00 95.9 74 18 114/77 97 05/24/16 05:40 98.3 68 17 160/68 97 05/23/16 21:15 97.0 73 17 122/78 97 05/23/16 21:00 97.1 71 18 125/76 96 I/O 05/23/16 05/23/16 05/23/16 05/24/16 05/24/16 05/24/16 07:00 15:00 23:00 07:00 15:00 23:00 Intake Total 480 ml 800 ml 400 ml Balance 480 ml 800 ml 400 ml Intake Oral 480 ml 800 ml 400 ml IV Total 0 ml # Voids 3 4 0 4 # Bowel Movements 1 2 0 0 Physical Exam HEENT: No jaundice. CHEST: Resp even/unlabored, OETT to vent. CARDIAC: RRR. ABDOMEN: Soft, distended, nontender; no hepatosplenomegaly; bowel sounds present. Peg tube site without redness or swelling or drainage. EXTREMITIES: Generalized edema. SKIN: Normal; no rash; no jaundice. 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 Assessment and Plan Plan ASSESSMENT: - Dysphagia, resolved and patient tolerating oral intake PLAN: -PEG tube removed by traction at bedside clean dressing applied patient tolerated procedure well Patient will need to be nothing by mouth for a couple hours and then may resume diet regularly Darin Son MD May 24, 2016 17:42
[2016-05-24 20:00] VITALS: BP 107/65; PULSE 78; RESP 16; TEMP 96; O2SAT 97
[2016-05-24 20:36] VITALS: BP 120/70
[2016-05-25] VITALS: BP 117/77; PULSE 59; RESP 16; TEMP 95.8; O2SAT 100
[2016-05-25 04:00] VITALS: BP_SYST 115; BP_SYST 127; BP_DIAS 62; BP_DIAS 72; PULSE 72; RESP 16; TEMP 97; O2SAT 95; O2SAT 98
[2016-05-25] MEDS: LISINOPRIL 10 MG TAB PO SCH (08:20)
[2016-05-25] MEDS: METHADONE HCL 10 MG/10 ML ORAL SOLUTION G-TUBE SCH ×2 (08:20→21:54)
[2016-05-25] MEDS: METOPROLOL TARTRATE 25 MG TAB PO/GT SCH ×2 (08:20→21:55)
[2016-05-25] MEDS: levETIRAcetam 500 MG/5 ML UDC PO SCH ×2 (08:21→21:54)
[2016-05-25 08:30] VITALS: BP 117/71; PULSE 80; RESP 20; TEMP 96.1; O2SAT 96
[2016-05-25] MEDS: ENOXAPARIN SODIUM 40 MG/0.4 ML SYRINGE SQ SCH (11:51)
[2016-05-25 12:46] VITALS: BP 129/69; PULSE 60; RESP 20; TEMP 95.8; O2SAT 98
[2016-05-25 16:00] VITALS: BP 99/70; PULSE 63; RESP 20; TEMP 96.4; O2SAT 98
--- NOTE | 2016-05-25 19:52 | HHI.PR ---
Subjective Remarks Follow up for intracranial hemorrhage with aphasia. Patient says he is feeling well. Denies any nausea, vomiting, chest pain, shortness of breath. PEG tube removed yesterday without issue. Dressing intact over PEG tube site. No significant drainage. He denies any pain. Objective Vital Signs Date Time Temp Pulse Resp B/P Pulse Ox O2 Delivery O2 Flow Rate FiO2 05/25/16 16:00 96.4 63 20 99/70 98 05/25/16 12:46 95.8 60 20 129/69 98 05/25/16 08:30 96.1 80 20 117/71 96 05/25/16 04:00 97.0 72 16 127/72 98 05/25/16 00:00 95.8 59 16 117/77 100 05/24/16 20:36 120/70 05/24/16 20:00 96.0 78 16 107/65 97 I/O 05/24/16 05/24/16 05/24/16 05/25/16 05/25/16 05/25/16 07:00 15:00 23:00 07:00 15:00 23:00 Intake Total 400 ml 480 ml 120 ml 120 ml 960 ml Output Total 0 ml 0 ml 625 ml Balance 400 ml 480 ml 120 ml 120 ml 335 ml Intake Oral 400 ml 480 ml 120 ml 120 ml 960 ml Output Urine Total 625 ml Stool Total 0 ml 0 ml # Voids 4 3 2 2 # Bowel Movements 0 2 Procedures 02/14 with right frontal bur hole and left subclavian line placement 02/15 with right occipital craniectomy with SDH evacuation 02/20 tracheostomy and PEG placement 02/25 left frontal temporoparietal decompressive craniotomy 03/06 PICC 03/29 bone flap replacement 05/24 PEG tube removed at bedside. Objective Remarks GENERAL: sitting up in bed. No acute distress. Alert. Pleasant. SKIN: Warm and dry. HEAD: Normocephalic. EYES: No scleral icterus. No injection or drainage. NECK: Supple, trachea midline. No JVD. CARDIOVASCULAR: Regular rate and rhythm without murmurs, gallops, or rubs. RESPIRATORY: Breath sounds equal bilaterally. No accessory muscle use. GASTROINTESTINAL: Abdomen soft, non-tender, nondistended. Previous site of PEG tube, now with PEG tube removed. No drainage. No surrounding erythema. MUSCULOSKELETAL: No cyanosis, or edema. BACK: Nontender without obvious deformity. No CVA tenderness. neurologic. Left-sided strength 5/5. Right-sided strength 4/5 A/P Assessment and Plan 65-year-old male with: // S/P traumatic brain injury: Initial head CT with right occipital bone fracture along with intraparenchymal hemorrhage, bilateral subdural hematomas, and subarachnoid hemorrhages. S/p right frontal bur hole, right occipital craniectomy with SDH evacuation, PEG placement, left frontal temporoparietal decompressive craniotomy, and subsequent bone flap replacement. Continue PT/ST/ OT. On Keppra bid for seizure prophylaxis. Neurosurgery signed off. // Protein Calorie malnutrition: -Tolerating by mouth nutrition. Appreciate dietary assistance. PEG tube removed. Healing as expected. Continue to monitor. // HTN: Stable. Continue on metoprolol 25 mg bid and lisinopril 10 mg daily. Continue to Monitor and adjust BP meds as needed. // Urinary retention: Cuenca removed 04/22 and patient passed voiding trial. Now voiding spontaneously. Monitor. Resolved. // Insomnia: Benadryl prn. // DVT prophylaxis: Lovenox Discharge Planning Per OT needs 24 h supervision at discharge No payor source for assisted or home health care There is a friend he may stay with however patient still needs quite a bit of supervision -Now that patient has had PEG tube removed, tolerating by mouth diet, case management has contacted patient's friend regarding discharge, and waiting to hear back. Case management assisting with discharge planning. Lane Yuan MD May 25, 2016 19:52 Lane Yuan MD May 25, 2016 19:52
[2016-05-25 20:00] VITALS: BP 137/75; PULSE 63; RESP 16; TEMP 97.5; O2SAT 99
[2016-05-26 00:30] VITALS: BP 120/77; PULSE 56; RESP 18; TEMP 97.6; O2SAT 95
[2016-05-26 04:00] VITALS: BP 118/66; PULSE 76; RESP 16; TEMP 98.7; O2SAT 95
[2016-05-26] MEDS: METHADONE HCL 10 MG/10 ML ORAL SOLUTION G-TUBE SCH ×2 (09:18→20:35)
[2016-05-26] MEDS: LISINOPRIL 10 MG TAB PO SCH (09:18)
[2016-05-26] MEDS: METOPROLOL TARTRATE 25 MG TAB PO/GT SCH ×2 (09:18→20:35)
[2016-05-26] MEDS: levETIRAcetam 500 MG/5 ML UDC PO SCH ×2 (09:18→20:35)
[2016-05-26 10:14] VITALS: BP 122/61; PULSE 85; RESP 20; TEMP 97; O2SAT 95
[2016-05-26] MEDS: ENOXAPARIN SODIUM 40 MG/0.4 ML SYRINGE SQ SCH (12:00)
--- NOTE | 2016-05-26 17:25 | HHI.PR ---
Subjective Remarks Follow up for intracranial hemorrhage with aphasia. Patient seen today around 11:30 AM. Says he feels well. No nausea or vomiting. Pain from PEG tube site is under control. Objective Vital Signs Date Time Temp Pulse Resp B/P Pulse Ox O2 Delivery O2 Flow Rate FiO2 05/26/16 10:14 97.0 85 20 122/61 95 05/26/16 04:00 98.7 76 16 118/66 95 05/26/16 00:30 97.6 56 18 120/77 95 05/25/16 20:00 97.5 63 16 137/75 99 I/O 05/25/16 05/25/16 05/25/16 05/26/16 05/26/16 05/26/16 07:00 15:00 23:00 07:00 15:00 23:00 Intake Total 120 ml 1200 ml 720 ml Output Total 0 ml 625 ml Balance 120 ml 575 ml 720 ml Intake Oral 120 ml 1200 ml 720 ml Output Urine Total 625 ml Stool Total 0 ml # Voids 2 2 2 # Bowel Movements 2 Procedures 02/14 with right frontal bur hole and left subclavian line placement 02/15 with right occipital craniectomy with SDH evacuation 02/20 tracheostomy and PEG placement 02/25 left frontal temporoparietal decompressive craniotomy 03/06 PICC 03/29 bone flap replacement 05/24 PEG tube removed at bedside. Objective Remarks GENERAL: sitting up in bed. No acute distress. Alert. Appears comfortable. Pleasant. SKIN: Warm and dry. HEAD: Normocephalic. EYES: No scleral icterus. No injection or drainage. NECK: Supple, trachea midline. No JVD. CARDIOVASCULAR: Regular rate and rhythm without murmurs, gallops, or rubs. RESPIRATORY: Breath sounds equal bilaterally. No accessory muscle use. GASTROINTESTINAL: Abdomen soft, non-tender, nondistended. Previous site of PEG tube, now with PEG tube removed. No drainage. No surrounding erythema. No drainage at all. No surrounding erythema. MUSCULOSKELETAL: No cyanosis, or edema. BACK: Nontender without obvious deformity. No CVA tenderness. neurologic. Left-sided strength 5/5. Right-sided strength 4/5 A/P Assessment and Plan 65-year-old male with: // S/P traumatic brain injury: Initial head CT with right occipital bone fracture along with intraparenchymal hemorrhage, bilateral subdural hematomas, and subarachnoid hemorrhages. S/p right frontal bur hole, right occipital craniectomy with SDH evacuation, PEG placement, left frontal temporoparietal decompressive craniotomy, and subsequent bone flap replacement. Continue PT/ST/ OT. On Keppra bid for seizure prophylaxis. Neurosurgery signed off. // Protein Calorie malnutrition: -Tolerating by mouth nutrition. Appreciate dietary assistance. PEG tube removed. Healing as expected, no drainage. Continue to monitor. // HTN: Stable. Continue on metoprolol 25 mg bid and lisinopril 10 mg daily. Continue to Monitor and adjust BP meds as needed. // Urinary retention: Cuenca removed 04/22 and patient passed voiding trial. Now voiding spontaneously. Monitor. Resolved. // Insomnia: Benadryl prn. // DVT prophylaxis: Lovenox Discharge Planning Per OT needs 24 h supervision at discharge No payor source for snf or home health care patient had a friend, who we thought he could stay with, however unsafe living conditions at friends house. patient makes 1100 dollars and Social Security benefits monthly. SSI still pending. Case management working on SNF. Case management assisting with discharge planning. Lane Yuan MD May 26, 2016 17:25 [address] Yuan MD May 26, 2016 17:25
[2016-05-26 17:34] VITALS: BP 101/72; PULSE 66; RESP 20; TEMP 96.3; O2SAT 98
[2016-05-26 20:00] VITALS: BP 120/72; PULSE 67; RESP 16; TEMP 97.6; O2SAT 97
[2016-05-27 00:20] VITALS: BP 112/76; PULSE 64; RESP 16; TEMP 98.1; O2SAT 98
[2016-05-27 08:12] VITALS: BP 114/73; PULSE 74; RESP 14; TEMP 98; O2SAT 97
[2016-05-27] MEDS: levETIRAcetam 500 MG/5 ML UDC PO SCH ×2 (09:03→21:25)
[2016-05-27] MEDS: METOPROLOL TARTRATE 25 MG TAB PO/GT SCH ×2 (09:04→21:00)
[2016-05-27] MEDS: METHADONE HCL 10 MG/10 ML ORAL SOLUTION G-TUBE SCH ×2 (09:05→21:27)
--- NOTE | 2016-05-27 10:25 | HHI.PR ---
Subjective Remarks Follow-up for intracranial hemorrhage with aphasia. Patient has been eating and drinking well. No issues from PEG tube removal. No other complaints at this time. Objective Vitals Vital Signs Date Time Temp Pulse Resp B/P Pulse Ox O2 Delivery O2 Flow Rate FiO2 05/27/16 08:12 98.0 74 14 114/73 97 05/27/16 00:20 98.1 64 16 112/76 98 05/26/16 20:00 97.6 67 16 120/72 97 05/26/16 17:34 96.3 66 20 101/72 98 I/O 05/26/16 05/26/16 05/26/16 05/27/16 05/27/16 05/27/16 07:00 15:00 23:00 07:00 15:00 23:00 Intake Total 720 ml 360 ml 240 ml Balance 720 ml 360 ml 240 ml Intake Oral 720 ml 360 ml 240 ml # Voids 2 2 3 # Bowel Movements 2 Objective Remarks GENERAL: Well-developed well-nourished. In no acute distress. SKIN: Warm and dry. No lesions noted. HEENT: Normocephalic. Pupils equal and round. Mucous membranes pink and moist. CARDIOVASCULAR: Regular rate and rhythm. No murmur appreciated. RESPIRATORY: No accessory muscle use. Clear to auscultation. Breath sounds equal bilaterally. GASTROINTESTINAL: Abdomen soft, non-tender, nondistended. Bowel sounds x4. Clean dressing on the upper abdomen. MUSCULOSKELETAL: No obvious deformities. No clubbing or cyanosis. No edema. NEUROLOGICAL: Awake and alert. Moves upper and lower extremities spontaneously. Normal speech, occasionally with speaking the wrong word. PSYCHIATRIC: Appropriate mood and affect; insight and judgment fair to normal. Procedures 02/14 with right frontal bur hole and left subclavian line placement 02/15 with right occipital craniectomy with SDH evacuation 02/20 tracheostomy and PEG placement 02/25 left frontal temporoparietal decompressive craniotomy 03/06 PICC 03/29 bone flap replacement Date of Insertion: Apr 10, 2016 Date of Removal: Apr 22, 2016 Date of Insertion: Mar 06, 2016 Line: PICC Side: Right Location: Antecubital A/P Problem List: (1) HTN (hypertension) Status: Acute (2) Traumatic brain injury Status: Acute Assessment and Plan 65-year-old male with: 1. S/P traumatic brain injury: Initial head CT with right occipital bone fracture along with intraparenchymal hemorrhage, bilateral subdural hematomas, and subarachnoid hemorrhages. Patient is status post right frontal bur hole, right occipital craniectomy with SDH evacuation, PEG placement, left frontal temporoparietal decompressive craniotomy, and subsequent bone flap replacement. Neurosurgery signed off. - Continue PT/speech therapy/occupational therapy - Keppra bid for seizure prophylaxis- 2. Protein Calorie malnutrition: Dietitian following, evaluated the patient , recommended discontinuing tube feedings and continue to ensure enlive. Encourage oral intake. Record % of meal intake in EMR per internet sales representative. PEG tube removed by GI on 05/25. 3. HTN: Chronic, stable. Currently on metoprolol 25 mg twice daily and lisinopril 10 mg once daily, continue. Monitor and adjust BP meds as needed. 4. Urinary retention: Cuenca removed 04/22 and patient passed voiding trial. Now voiding spontaneously. Monitor. 5. DVT prophylaxis: Lovenox subcutaneous. Discussed with case management. Discussed with Dr. Yuan. Discharge Planning No payor source for penitentiary or home health care at this time. Per report from case management, previous living situation is unsafe. Discussed with case management, arranging for Medicaid. Ernesto Huntley May 27, 2016 10:25
[2016-05-27] MEDS: ENOXAPARIN SODIUM 40 MG/0.4 ML SYRINGE SQ SCH (12:18)
[2016-05-27 12:26] VITALS: BP 115/75; PULSE 80; RESP 16; TEMP 96.9; O2SAT 96
[2016-05-27 16:15] VITALS: BP 122/76; PULSE 62; RESP 15; TEMP 97.4; O2SAT 98
[2016-05-27 20:35] VITALS: BP 101/54; PULSE 63; RESP 19; TEMP 96.1; O2SAT 94
[2016-05-28] VITALS (7 sets, daily range): BP systolic 107–142; BP diastolic 65–88; PULSE 58–78; RESP 17–18; TEMP 96.5–98; O2SAT 95–98
[2016-05-28] MEDS: levETIRAcetam 500 MG/5 ML UDC PO SCH ×2 (09:43→21:59)
[2016-05-28] MEDS: METOPROLOL TARTRATE 25 MG TAB PO/GT SCH ×2 (09:45→21:59)
[2016-05-28] MEDS: LISINOPRIL 10 MG TAB PO SCH (09:45)
[2016-05-28] MEDS: METHADONE HCL 10 MG/10 ML ORAL SOLUTION G-TUBE SCH ×2 (09:46→22:00)
--- NOTE | 2016-05-28 12:10 | HHI.PR ---
Subjective Remarks Follow up for intracranial hemorrhage and aphasia. The patient has no medical complaints. Continues to eat and drink well. Ambulating his room with a cane. Vital signs stable. Objective Vitals Vital Signs Date Time Temp Pulse Resp B/P Pulse Ox O2 Delivery O2 Flow Rate FiO2 05/28/16 08:00 96.9 76 18 142/88 98 05/28/16 04:40 98.0 64 18 118/70 95 05/28/16 00:00 97.7 69 17 120/65 96 05/27/16 20:35 96.1 63 19 101/54 94 05/27/16 16:15 97.4 62 15 122/76 98 05/27/16 12:26 96.9 80 16 115/75 96 I/O 05/27/16 05/27/16 05/27/16 05/28/16 05/28/16 05/28/16 07:00 15:00 23:00 07:00 15:00 23:00 Intake Total 240 ml 850 ml 380 ml 550 ml Balance 240 ml 850 ml 380 ml 550 ml Intake Oral 240 ml 850 ml 380 ml 550 ml # Voids 3 5 2 3 # Bowel Movements 0 0 0 Objective Remarks GENERAL: Well-nourished, well-developed middle aged male patient in [facility]. SKIN: Warm and dry. No rash. HEAD: Normocephalic. Atraumatic. NECK: Supple. Trachea midline. CARDIOVASCULAR: Regular rate and rhythm. S1, S2 noted. No murmur appreciated. RESPIRATORY: No accessory muscle use. Clear to auscultation. Breath sounds equal bilaterally. GASTROINTESTINAL: Abdomen soft, non-tender, nondistended. Normoactive bowel sounds x4. PEG in place. MUSCULOSKELETAL: No obvious deformities. Extremities without clubbing, cyanosis , or edema. NEUROLOGICAL: Awake and alert, oriented to self. Speech not slurred, however often with expressive deficit, improving. Moves all extremities spontaneously, right sided upper and lower extremity 4/5 strength, left upper and lower extremity 5/5 strength. Procedures 02/14 with right frontal bur hole and left subclavian line placement 02/15 with right occipital craniectomy with SDH evacuation 02/20 tracheostomy and PEG placement 02/25 left frontal temporoparietal decompressive craniotomy 03/06 PICC 03/29 bone flap replacement Medications and IVs Current Medications Medications (Trade) Dose Ordered Sig/Rodney Route Start Time Stop Time Status Last Admin Miscellaneous Information 1 [id number] XX 02/15/16 04:00 (Tylenol) 650 mg Q4H PRN PO 03/29/16 10:30 04/25/16 06:18 (Methadone Liq) 2.5 mg Q12HR G-TUBE 03/30/16 21:00 05/28/16 09:46 (Motrin Liq) 400 mg Q6H PRN PO 04/01/16 11:15 05/18/16 12:42 (Lovenox Inj) 40 mg Q24H SQ 04/01/16 12:00 05/27/16 12:18 (Keppra Liq) 1,000 mg Q12HR PO 04/15/16 21:00 05/28/16 09:43 (Prinivil) 10 mg DAILY PO 04/26/16 09:00 05/28/16 09:45 (Colace) 100 mg BID PRN PO 04/28/16 11:00 (Milk Of Magnesia Liq) 30 ml Q6H PRN PO 04/28/16 11:45 (Lopressor) 25 mg Q12HR PO/GT 04/28/16 21:00 05/28/16 09:45 (Benadryl) 50 mg HS PRN PO 05/14/16 08:30 Urinary Catheter: No Date of Insertion: Apr 10, 2016 Date of Removal: Apr 22, 2016 Vascular Central Line Catheter: No Date of Insertion: Mar 06, 2016 Line: PICC Side: Right Location: Antecubital A/P Problem List: (1) HTN (hypertension) Status: Acute (2) Traumatic brain injury Status: Acute Assessment and Plan 65-year-old male with: 1. S/P traumatic brain injury: Initial head CT with right occipital bone fracture along with intraparenchymal hemorrhage, bilateral subdural hematomas, and subarachnoid hemorrhages. S/p right frontal bur hole, right occipital craniectomy with SDH evacuation, PEG placement, left frontal temporoparietal decompressive craniotomy, and subsequent bone flap replacement. Continue PT/ST/ OT. On Keppra bid for seizure prophylaxis. Neurosurgery signed off. 2. Protein Calorie malnutrition: Dietitian following, last assess 05/21, recommended discontinuing tube feedings and continue to ensure enlive. Encourage oral intake. Record % of meal intake in EMR per bridge/structure inspection team leader. PEG tube removed by GI on 05/25. 3. HTN: Stable. Continue on metoprolol 25 mg bid and lisinopril 10 mg daily. Monitor and adjust BP meds as needed. 4. Urinary retention: Cuenca removed 04/22 and patient passed voiding trial. Now voiding spontaneously. Monitor. Resolved. 5. Insomnia: Benadryl prn. Avoid vital signs and other interruptions between midnight and 6am to assist with establishing regular sleep schedule. 6. DVT prophylaxis: Lovenox Discharge Planning No payor source for detention or home health care at this time. Per report from case management, previous living situation is unsafe. Discussed with case management, arranging for Medicaid. Rosa Rodriguez PA-C May 28, 2016 12:10
[2016-05-29 08:00] VITALS: BP 129/78; PULSE 80; RESP 16; TEMP 96.3; O2SAT 97
[2016-05-29] MEDS: METOPROLOL TARTRATE 25 MG TAB PO/GT SCH ×2 (08:59→23:15)
[2016-05-29] MEDS: levETIRAcetam 500 MG/5 ML UDC PO SCH ×2 (08:59→23:15)
--- NOTE | 2016-05-29 08:59 | HHI.PR ---
Subjective Remarks Patient seen in room resting in bed. No complaints at this time. Does not appear in acute distress. Objective Vitals Vital Signs Date Time Temp Pulse Resp B/P Pulse Ox O2 Delivery O2 Flow Rate FiO2 05/28/16 23:00 97.9 58 18 110/66 96 05/28/16 20:44 97.5 61 18 117/69 95 05/28/16 14:00 96.5 67 18 111/68 97 05/28/16 12:00 96.5 78 18 107/71 97 I/O 05/28/16 05/28/16 05/28/16 05/29/16 05/29/16 05/29/16 07:00 15:00 23:00 07:00 15:00 23:00 Intake Total 550 ml 480 ml 600 ml 480 ml Balance 550 ml 480 ml 600 ml 480 ml Intake Oral 550 ml 480 ml 600 ml 480 ml # Voids 3 5 3 5 # Bowel Movements 0 1 1 0 Imaging Last Impressions Chest X-Ray 03/27/16 0000 Signed Impressions: Service Date/Time: Sunday, March 27, 2016 03:46 - CONCLUSION: No significant change mild parenchymal opacities of the left lung. Duy Skelton MD Liver Ultrasound 03/18/16 0000 Signed Impressions: Service Date/Time: Friday, March 18, 2016 17:01 - CONCLUSION: Ultrasound appearance of the liver and other right upper quadrant structures is within normal limits. Duy Skelton MD Head CT 03/09/16 0600 Signed Impressions: Service Date/Time: Wednesday, March 09, 2016 04:21 - CONCLUSION: 1. Mild improvement of the cerebral edema in the left cerebral hemisphere. 2. Otherwise , no other new or significant changes. Alli Jj MD Head CTA 02/16/16 0000 Signed Impressions: Service Date/Time: Tuesday, February 16, 2016 04:31 - CONCLUSION: I do not see an etiology for the patient's cerebellar hemorrhage on the right. Small supratentorial vessels in a 65-year-old. Etiology of this finding is not apparent. Trace subdural blood and subarachnoid blood persist over both convexities. Earl Gaitan MD FACR Cervical Spine CT 02/15/16 0445 Signed Impressions: Service Date/Time: January 04:57 - CONCLUSION: 1. Slight neural foramina compromise bilateral C4-5 and C5-6 in addition to bilateral lateral recess compromise at these levels and no significant thecal sac stenosis. 2. There is also slight neural foramina compromise right C3-C4. 3. Nonspecific lucencies in the spine may be osteoporotic changes, however myeloma is difficult to exclude. Ariadne Feng MD Objective Remarks GENERAL: Well-nourished, well-developed patient. Not in distress. SKIN: Warm and dry. No rash of generalized distribution noted. HEAD: Normocephalic. Atraumatic. ENT: No nasal bleeding or discharge. Mucous membranes pink and moist. NECK: Supple. Trachea midline. CARDIOVASCULAR: Regular rate and rhythm. No murmur gallop or rub. RESPIRATORY: No accessory muscle use. Clear to auscultation. Breath sounds equal bilaterally. GASTROINTESTINAL: Abdomen soft, non-tender, nondistended. Normoactive bowel sounds x4. Previous PEG tube site healing well. GENITOURINARY: Patient voiding spontaneously. MUSCULOSKELETAL: No obvious deformities. Extremities without clubbing, cyanosis , or edema. NEUROLOGICAL: Awake and alert, oriented to self. Normal speech noted at this time. Procedures 02/14 with right frontal bur hole and left subclavian line placement 02/15 with right occipital craniectomy with SDH evacuation 02/20 tracheostomy and PEG placement 02/25 left frontal temporoparietal decompressive craniotomy 03/06 PICC 03/29 bone flap replacement Date of Insertion: Apr 10, 2016 Date of Removal: Apr 22, 2016 Date of Insertion: Mar 06, 2016 Line: PICC Side: Right Location: Antecubital A/P Problem List: (1) HTN (hypertension) Status: Acute (2) Traumatic brain injury Status: Acute Assessment and Plan 65-year-old male with: 1. S/P traumatic brain injury: Initial head CT with right occipital bone fracture along with intraparenchymal hemorrhage, bilateral subdural hematomas, and subarachnoid hemorrhages. Patient is status post right frontal bur hole, right occipital craniectomy with SDH evacuation, PEG placement, left frontal temporoparietal decompressive craniotomy, and subsequent bone flap replacement. -Continue PT/ST/OT -Continue Keppra for seizure prophylaxis- - neurosurgery signed off 2. Protein Calorie Malnutrition: Patient tolerating by mouth diet. Encouraged oral intake. 3. HTN: Continue lisinopril. Continue Metoprolol at 25 mg twice a day. Will continue to monitor and adjust BP meds as needed. 4. Urinary retention: Cuenca removed and patient passed voiding trial. Now voiding spontaneously. Monitor. 5. DVT prophylaxis: Lovenox subcutaneous. 6. Insomnia- Benadryl PRN No change in current management. Care discussed with patient, RN, Pat Alonso May 29, 2016 08:58
[2016-05-29] MEDS: METHADONE HCL 10 MG/10 ML ORAL SOLUTION G-TUBE SCH ×2 (09:00→23:15)
[2016-05-29] MEDS: LISINOPRIL 10 MG TAB PO SCH ×2 (09:00→09:01)
[2016-05-29] MEDS: ENOXAPARIN SODIUM 40 MG/0.4 ML SYRINGE SQ SCH (11:15)
[2016-05-29 12:00] VITALS: BP 116/84; PULSE 76; RESP 16; TEMP 97.2; O2SAT 97
[2016-05-29 16:00] VITALS: BP 99/64; PULSE 79; RESP 16; TEMP 95.8; O2SAT 95
[2016-05-29 20:00] VITALS: BP 119/76; PULSE 70; RESP 18; TEMP 97.9; O2SAT 99
[2016-05-30] MEDS: LISINOPRIL 10 MG TAB PO SCH (08:54)
[2016-05-30] MEDS: METOPROLOL TARTRATE 25 MG TAB PO/GT SCH ×2 (08:54→21:12)
[2016-05-30] MEDS: levETIRAcetam 500 MG/5 ML UDC PO SCH ×2 (08:54→21:12)
[2016-05-30 08:56] VITALS: BP 120/71; PULSE 66; RESP 20; TEMP 97.4; O2SAT 100
[2016-05-30] MEDS: METHADONE HCL 10 MG/10 ML ORAL SOLUTION G-TUBE SCH ×2 (08:56→21:12)
[2016-05-30] MEDS: ENOXAPARIN SODIUM 40 MG/0.4 ML SYRINGE SQ SCH (08:58)
--- NOTE | 2016-05-30 09:08 | HHI.PR ---
Subjective Remarks Patient resting in bed, no complaints at this time. No acute events overnight. Objective Vitals Vital Signs Date Time Temp Pulse Resp B/P Pulse Ox O2 Delivery O2 Flow Rate FiO2 05/30/16 08:56 97.4 66 20 120/71 100 05/29/16 20:00 97.9 70 18 119/76 99 05/29/16 16:00 95.8 79 16 99/64 95 05/29/16 12:00 97.2 76 16 116/84 97 I/O 05/29/16 05/29/16 05/29/16 05/30/16 05/30/16 05/30/16 07:00 15:00 23:00 07:00 15:00 23:00 Intake Total 480 ml 600 ml Balance 480 ml 600 ml Intake Oral 480 ml 600 ml # Voids 5 5 # Bowel Movements 0 Objective Remarks GENERAL: Well-nourished, well-developed patient. Not in distress. SKIN: Warm and dry. No rash of generalized distribution noted. HEAD: Normocephalic. Atraumatic. ENT: No nasal bleeding or discharge. Mucous membranes pink and moist. NECK: Supple. Trachea midline. CARDIOVASCULAR: Regular rate and rhythm. No murmur gallop or rub. RESPIRATORY: No accessory muscle use. Clear to auscultation. Breath sounds equal bilaterally. GASTROINTESTINAL: Abdomen soft, non-tender, nondistended. Normoactive bowel sounds x4. Previous PEG tube site healing well. GENITOURINARY: Patient voiding spontaneously. MUSCULOSKELETAL: No obvious deformities. Extremities without clubbing, cyanosis , or edema. NEUROLOGICAL: Awake and alert, oriented to self. Normal speech noted at this time. Procedures 02/14 with right frontal bur hole and left subclavian line placement 02/15 with right occipital craniectomy with SDH evacuation 02/20 tracheostomy and PEG placement 02/25 left frontal temporoparietal decompressive craniotomy 03/06 PICC 03/29 bone flap replacement Date of Insertion: Apr 10, 2016 Date of Removal: Apr 22, 2016 Date of Insertion: Mar 06, 2016 Line: PICC Side: Right Location: Antecubital A/P Problem List: (1) HTN (hypertension) Status: Acute (2) Traumatic brain injury Status: Acute Assessment and Plan 65-year-old male with: 1. S/P traumatic brain injury: Initial head CT with right occipital bone fracture along with intraparenchymal hemorrhage, bilateral subdural hematomas, and subarachnoid hemorrhages. Patient is status post right frontal bur hole, right occipital craniectomy with SDH evacuation, PEG placement, left frontal temporoparietal decompressive craniotomy, and subsequent bone flap replacement. -Continue PT/ST/OT -Continue Keppra for seizure prophylaxis- - neurosurgery signed off 2. Protein Calorie Malnutrition: Patient tolerating by mouth diet. Encouraged oral intake. 3. HTN: Continue lisinopril. Continue Metoprolol at 25 mg twice a day. Will continue to monitor and adjust BP meds as needed. 4. Urinary retention: Cuenca removed and patient passed voiding trial. Now voiding spontaneously. Monitor. 5. DVT prophylaxis: Lovenox subcutaneous. 6. Insomnia- Benadryl PRN No change in current management. Care discussed with patient, RN, Pat Alonso May 30, 2016 09:08
[2016-05-30 12:36] VITALS: BP 102/65; PULSE 60; RESP 20; TEMP 96.1; O2SAT 99
[2016-05-30 16:00] VITALS: BP 108/66; PULSE 70; RESP 20; TEMP 96.3; O2SAT 99
[2016-05-30 20:00] VITALS: BP 108/69; PULSE 74; RESP 16; TEMP 98.1; O2SAT 97
[2016-05-31 07:41] VITALS: O2SAT 93
[2016-05-31 08:00] VITALS: BP 118/74; PULSE 67; RESP 18; TEMP 96.4; O2SAT 99
[2016-05-31] MEDS: METOPROLOL TARTRATE 25 MG TAB PO/GT SCH ×2 (08:20→20:14)
[2016-05-31] MEDS: levETIRAcetam 500 MG/5 ML UDC PO SCH ×2 (08:20→20:14)
[2016-05-31] MEDS: LISINOPRIL 10 MG TAB PO SCH (08:20)
[2016-05-31] MEDS: METHADONE HCL 10 MG/10 ML ORAL SOLUTION G-TUBE SCH ×2 (08:21→20:14)
[2016-05-31] MEDS: ENOXAPARIN SODIUM 40 MG/0.4 ML SYRINGE SQ SCH (08:22)
[2016-05-31 12:00] VITALS: BP 85/56; PULSE 60; RESP 18; TEMP 96.8; O2SAT 95
--- NOTE | 2016-05-31 15:32 | HHI.PR ---
Subjective Remarks Patient sitting in chair, no acute concerns at this time. Objective Vitals Vital Signs Date Time Temp Pulse Resp B/P Pulse Ox O2 Delivery O2 Flow Rate FiO2 05/31/16 12:00 96.8 60 18 85/56 95 05/31/16 08:00 96.4 67 18 118/74 99 05/31/16 07:41 93 05/30/16 22:00 20 05/30/16 20:00 98.1 74 16 108/69 97 05/30/16 16:00 96.3 70 20 108/66 99 I/O 05/30/16 05/30/16 05/30/16 05/31/16 05/31/16 05/31/16 07:00 15:00 23:00 07:00 15:00 23:00 Intake Total 600 ml 840 ml 120 ml Output Total 0 ml 1 ml Balance 600 ml 840 ml 119 ml Intake Oral 600 ml 840 ml 120 ml IV Total 0 ml Stool Total 0 ml 1 ml # Voids 5 7 2 Objective Remarks GENERAL: Well-nourished, well-developed patient. Not in distress. SKIN: Warm and dry. No rash of generalized distribution noted. HEAD: Normocephalic. Atraumatic. ENT: No nasal bleeding or discharge. Mucous membranes pink and moist. NECK: Supple. Trachea midline. CARDIOVASCULAR: Regular rate and rhythm. No murmur gallop or rub. RESPIRATORY: No accessory muscle use. Clear to auscultation. Breath sounds equal bilaterally. GASTROINTESTINAL: Abdomen soft, non-tender, nondistended. Normoactive bowel sounds x4. Previous PEG tube site healing well. GENITOURINARY: Patient voiding spontaneously. MUSCULOSKELETAL: No obvious deformities. Extremities without clubbing, cyanosis , or edema. NEUROLOGICAL: Awake and alert, oriented to self. Normal speech noted at this time. Procedures 02/14 with right frontal bur hole and left subclavian line placement 02/15 with right occipital craniectomy with SDH evacuation 02/20 tracheostomy and PEG placement 02/25 left frontal temporoparietal decompressive craniotomy 03/06 PICC 03/29 bone flap replacement Date of Insertion: Apr 10, 2016 Date of Removal: Apr 22, 2016 Date of Insertion: Mar 06, 2016 Line: PICC Side: Right Location: Antecubital A/P Problem List: (1) HTN (hypertension) Status: Acute (2) Traumatic brain injury Status: Acute Assessment and Plan 65-year-old male with: 1. S/P traumatic brain injury: Initial head CT with right occipital bone fracture along with intraparenchymal hemorrhage, bilateral subdural hematomas, and subarachnoid hemorrhages. Patient is status post right frontal bur hole, right occipital craniectomy with SDH evacuation, PEG placement, left frontal temporoparietal decompressive craniotomy, and subsequent bone flap replacement. -Continue PT/ST/OT -Continue Keppra for seizure prophylaxis- - neurosurgery signed off 2. Protein Calorie Malnutrition: Patient tolerating by mouth diet. Encouraged oral intake. 3. HTN: Continue lisinopril. Continue Metoprolol at 25 mg twice a day. Will continue to monitor and adjust BP meds as needed. 4. Urinary retention: Cuenca removed and patient passed voiding trial. Now voiding spontaneously. Monitor. 5. DVT prophylaxis: Lovenox subcutaneous. 6. Insomnia- Benadryl PRN No change in current management. Care discussed with patient, RN, Pat Sanchez May 31, 2016 15:32 Jhony An MD May 31, 2016 15:36
[2016-05-31 16:00] VITALS: BP 94/67; PULSE 60; RESP 16; TEMP 96.4; O2SAT 99
[2016-05-31 20:00] VITALS: BP 112/69; PULSE 75; RESP 20; TEMP 96.9; O2SAT 95
[2016-06-01 07:58] VITALS: BP 124/74; PULSE 65; RESP 16; TEMP 95.7; O2SAT 100
[2016-06-01] MEDS: LISINOPRIL 10 MG TAB PO SCH (08:52)
[2016-06-01] MEDS: METOPROLOL TARTRATE 25 MG TAB PO/GT SCH ×2 (08:52→21:00)
[2016-06-01] MEDS: levETIRAcetam 500 MG/5 ML UDC PO SCH ×2 (08:53→23:55)
[2016-06-01] MEDS: METHADONE HCL 10 MG/10 ML ORAL SOLUTION G-TUBE SCH ×2 (08:54→23:55)
--- NOTE | 2016-06-01 10:46 | HHI.PR ---
Subjective Remarks Patient resting in bed, no complaints at this time. Objective Vitals Vital Signs Date Time Temp Pulse Resp B/P Pulse Ox O2 Delivery O2 Flow Rate FiO2 06/01/16 07:58 95.7 65 16 124/74 100 05/31/16 20:00 96.9 75 20 112/69 95 05/31/16 16:00 96.4 60 16 94/67 99 05/31/16 12:00 96.8 60 18 85/56 95 I/O 05/31/16 05/31/16 05/31/16 06/01/16 06/01/16 06/01/16 07:00 15:00 23:00 07:00 15:00 23:00 Intake Total 120 ml 480 ml 480 ml 0 ml Output Total 1 ml 0 ml 0 ml Balance 119 ml 480 ml 480 ml 0 ml Intake Oral 120 ml 480 ml 480 ml 0 ml IV Total 0 ml Stool Total 1 ml 0 ml 0 ml # Voids 2 2 4 3 # Bowel Movements 0 Objective Remarks GENERAL: Well-nourished, well-developed patient. Not in distress. SKIN: Warm and dry. No rash of generalized distribution noted. HEAD: Normocephalic. Atraumatic. ENT: No nasal bleeding or discharge. Mucous membranes pink and moist. NECK: Supple. Trachea midline. CARDIOVASCULAR: Regular rate and rhythm. No murmur gallop or rub. RESPIRATORY: No accessory muscle use. Clear to auscultation. Breath sounds equal bilaterally. GASTROINTESTINAL: Abdomen soft, non-tender, nondistended. Normoactive bowel sounds x4. Previous PEG tube site healing well. GENITOURINARY: Patient voiding spontaneously. MUSCULOSKELETAL: No obvious deformities. Extremities without clubbing, cyanosis , or edema. NEUROLOGICAL: Awake and alert, oriented to self. Normal speech noted at this time. Procedures 02/14 with right frontal bur hole and left subclavian line placement 02/15 with right occipital craniectomy with SDH evacuation 02/20 tracheostomy and PEG placement 02/25 left frontal temporoparietal decompressive craniotomy 03/06 PICC 03/29 bone flap replacement Date of Insertion: Apr 10, 2016 Date of Removal: Apr 22, 2016 Date of Insertion: Mar 06, 2016 Line: PICC Side: Right Location: Antecubital A/P Problem List: (1) HTN (hypertension) Status: Acute (2) Traumatic brain injury Status: Acute Assessment and Plan 65-year-old male with: 1. S/P traumatic brain injury: Initial head CT with right occipital bone fracture along with intraparenchymal hemorrhage, bilateral subdural hematomas, and subarachnoid hemorrhages. Patient is status post right frontal bur hole, right occipital craniectomy with SDH evacuation, PEG placement, left frontal temporoparietal decompressive craniotomy, and subsequent bone flap replacement. -Continue PT/ST/OT -Continue Keppra for seizure prophylaxis- - neurosurgery signed off 2. Protein Calorie Malnutrition: Patient tolerating by mouth diet. Encouraged oral intake. 3. HTN: Continue lisinopril. Continue Metoprolol at 25 mg twice a day. Will continue to monitor and adjust BP meds as needed. 4. Urinary retention: Cuenca removed and patient passed voiding trial. Now voiding spontaneously. Monitor. 5. DVT prophylaxis: Lovenox subcutaneous. 6. Insomnia- Benadryl PRN No change in current management. Care discussed with patient, RN, Dr. An Discharge Planning Needs long-term placement no accepting facility. Case management following Pat Mora Jun 01, 2016 10:46 Jhony An MD Jun 01, 2016 12:55
[2016-06-01 12:00] VITALS: BP 128/67; PULSE 66; RESP 18; TEMP 96.5; O2SAT 99
[2016-06-01] MEDS: ENOXAPARIN SODIUM 40 MG/0.4 ML SYRINGE SQ SCH (12:33)
[2016-06-01 16:00] VITALS: BP 125/64; PULSE 64; RESP 18; TEMP 96.1; O2SAT 98
[2016-06-01 20:00] VITALS: BP 111/67; PULSE 73; RESP 18; TEMP 97; O2SAT 99
[2016-06-01] MEDS: diphenhydrAMINE HCL 50 MG CAP PO PRN (23:57)
[2016-06-02] VITALS: BP 110/57; PULSE 64; RESP 18; TEMP 97.2; O2SAT 97
[2016-06-02 08:00] VITALS: BP 121/74; PULSE 65; RESP 18; TEMP 97.5; O2SAT 99
--- NOTE | 2016-06-02 08:25 | HHI.PR ---
Subjective Remarks Patient seen in room, eating breakfast. No complaints at this time. No acute events overnight. Objective Vitals Vital Signs Date Time Temp Pulse Resp B/P Pulse Ox O2 Delivery O2 Flow Rate FiO2 06/02/16 08:00 97.5 65 18 121/74 99 06/02/16 00:55 16 06/02/16 00:00 97.2 64 18 110/57 97 06/01/16 20:00 97.0 73 18 111/67 99 06/01/16 16:00 96.1 64 18 125/64 98 06/01/16 12:00 96.5 66 18 128/67 99 I/O 06/01/16 06/01/16 06/01/16 06/02/16 06/02/16 06/02/16 07:00 15:00 23:00 07:00 15:00 23:00 Intake Total 0 ml 480 ml Output Total 0 ml Balance 0 ml 480 ml Intake Oral 0 ml 480 ml Stool Total 0 ml # Voids 3 3 # Bowel Movements 1 Objective Remarks GENERAL: Well-nourished, well-developed patient. Not in distress. SKIN: Warm and dry. No rash of generalized distribution noted. HEAD: Normocephalic. Atraumatic. ENT: No nasal bleeding or discharge. Mucous membranes pink and moist. NECK: Supple. Trachea midline. CARDIOVASCULAR: Regular rate and rhythm. No murmur gallop or rub. RESPIRATORY: No accessory muscle use. Clear to auscultation. Breath sounds equal bilaterally. GASTROINTESTINAL: Abdomen soft, non-tender, nondistended. Normoactive bowel sounds x4. Previous PEG tube site healing well. GENITOURINARY: Patient voiding spontaneously. MUSCULOSKELETAL: No obvious deformities. Extremities without clubbing, cyanosis , or edema. NEUROLOGICAL: Awake and alert, oriented to self. Normal speech noted at this time. Procedures 02/14 with right frontal bur hole and left subclavian line placement 02/15 with right occipital craniectomy with SDH evacuation 02/20 tracheostomy and PEG placement 02/25 left frontal temporoparietal decompressive craniotomy 03/06 PICC 03/29 bone flap replacement Date of Insertion: Apr 10, 2016 Date of Removal: Apr 22, 2016 Date of Insertion: Mar 06, 2016 Line: PICC Side: Right Location: Antecubital A/P Problem List: (1) HTN (hypertension) Status: Acute (2) Traumatic brain injury Status: Acute Assessment and Plan 65-year-old male with: 1. S/P traumatic brain injury: Initial head CT with right occipital bone fracture along with intraparenchymal hemorrhage, bilateral subdural hematomas, and subarachnoid hemorrhages. Patient is status post right frontal bur hole, right occipital craniectomy with SDH evacuation, PEG placement, left frontal temporoparietal decompressive craniotomy, and subsequent bone flap replacement. -Continue PT/ST/OT -Continue Keppra for seizure prophylaxis- - neurosurgery signed off 2. Protein Calorie Malnutrition: Patient tolerating by mouth diet. Encouraged oral intake. 3. HTN: Continue lisinopril. Continue Metoprolol at 25 mg twice a day. Will continue to monitor and adjust BP meds as needed. 4. Urinary retention: Cuenca removed and patient passed voiding trial. Now voiding spontaneously. Monitor. 5. DVT prophylaxis: Lovenox subcutaneous. 6. Insomnia- Benadryl PRN No change in current management. Care discussed with patient, RN, Dr. An Discharge Planning Case management assisting with placement. Pat Mora Jun 02, 2016 08:25
[2016-06-02] MEDS: levETIRAcetam 500 MG/5 ML UDC PO SCH ×2 (09:36→22:12)
[2016-06-02] MEDS: LISINOPRIL 10 MG TAB PO SCH (09:37)
[2016-06-02] MEDS: METHADONE HCL 10 MG/10 ML ORAL SOLUTION G-TUBE SCH ×2 (09:37→22:13)
[2016-06-02] MEDS: METOPROLOL TARTRATE 25 MG TAB PO/GT SCH ×2 (09:37→21:00)
[2016-06-02 12:00] VITALS: BP 131/65; PULSE 76; RESP 19; TEMP 98.6; O2SAT 98
[2016-06-02] MEDS: ENOXAPARIN SODIUM 40 MG/0.4 ML SYRINGE SQ SCH (12:00)
[2016-06-02 16:00] VITALS: BP 126/66; PULSE 74; RESP 18; TEMP 98.7; O2SAT 96
[2016-06-02 20:00] VITALS: BP 97/58; PULSE 67; RESP 18; TEMP 96.8; O2SAT 96
[2016-06-03 08:56] VITALS: BP 134/77; PULSE 95; RESP 16; TEMP 97.5; O2SAT 98
[2016-06-03] MEDS: levETIRAcetam 500 MG/5 ML UDC PO SCH ×2 (09:13→20:53)
[2016-06-03] MEDS: METOPROLOL TARTRATE 25 MG TAB PO/GT SCH ×2 (09:13→20:53)
[2016-06-03] MEDS: LISINOPRIL 10 MG TAB PO SCH (09:13)
[2016-06-03] MEDS: METHADONE HCL 10 MG/10 ML ORAL SOLUTION G-TUBE SCH ×2 (09:14→20:54)
[2016-06-03] MEDS: ENOXAPARIN SODIUM 40 MG/0.4 ML SYRINGE SQ SCH (10:50)
[2016-06-03 13:35] VITALS: BP 102/68; PULSE 68; RESP 16; TEMP 96.4; O2SAT 100
--- NOTE | 2016-06-03 15:19 | HHI.PR ---
Subjective Remarks No complaints at this time. Denies pain currently. Objective Vitals Vital Signs Date Time Temp Pulse Resp B/P Pulse Ox O2 Delivery O2 Flow Rate FiO2 06/03/16 13:35 96.4 68 16 102/68 100 06/03/16 10:14 16 06/03/16 08:56 97.5 95 16 134/77 98 06/02/16 20:00 96.8 67 18 97/58 96 06/02/16 16:00 98.7 74 18 126/66 96 I/O 06/02/16 06/02/16 06/02/16 06/03/16 06/03/16 06/03/16 07:00 15:00 23:00 07:00 15:00 23:00 Intake Total 480 ml 720 ml Balance 480 ml 720 ml Intake Oral 480 ml 720 ml # Voids 4 3 3 # Bowel Movements 0 0 Imaging Last Impressions Chest X-Ray 03/27/16 0000 Signed Impressions: Service Date/Time: Sunday, March 27, 2016 03:46 - CONCLUSION: No significant change mild parenchymal opacities of the left lung. Duy Skelton MD Liver Ultrasound 03/18/16 0000 Signed Impressions: Service Date/Time: Friday, March 18, 2016 17:01 - CONCLUSION: Ultrasound appearance of the liver and other right upper quadrant structures is within normal limits. Duy Skelton MD Head CT 03/09/16 0600 Signed Impressions: Service Date/Time: Wednesday, March 09, 2016 04:21 - CONCLUSION: 1. Mild improvement of the cerebral edema in the left cerebral hemisphere. 2. Otherwise , no other new or significant changes. Alli Jj MD Head CTA 02/16/16 0000 Signed Impressions: Service Date/Time: Tuesday, February 16, 2016 04:31 - CONCLUSION: I do not see an etiology for the patient's cerebellar hemorrhage on the right. Small supratentorial vessels in a 65-year-old. Etiology of this finding is not apparent. Trace subdural blood and subarachnoid blood persist over both convexities. Earl Gaitan MD FACR Cervical Spine CT 02/15/16 0445 Signed Impressions: Service Date/Time: January 04:57 - CONCLUSION: 1. Slight neural foramina compromise bilateral C4-5 and C5-6 in addition to bilateral lateral recess compromise at these levels and no significant thecal sac stenosis. 2. There is also slight neural foramina compromise right C3-C4. 3. Nonspecific lucencies in the spine may be osteoporotic changes, however myeloma is difficult to exclude. Ariadne Feng MD Objective Remarks General: No acute distress. Sitting up in a chair. Heart: Regular rate and rhythm. No murmur. Lungs: Clear to auscultation bilaterally. No wheezes, rales, or rhonchi. Breathing is nonlabored. Abdomen: Soft, nontender, nondistended. Extremities: No lower extremity edema. Psych: Alert and oriented. Procedures 02/14 with right frontal bur hole and left subclavian line placement 02/15 with right occipital craniectomy with SDH evacuation 02/20 tracheostomy and PEG placement 02/25 left frontal temporoparietal decompressive craniotomy 03/06 PICC 03/29 bone flap replacement Date of Insertion: Apr 10, 2016 Date of Removal: Apr 22, 2016 Date of Insertion: Mar 06, 2016 Line: PICC Side: Right Location: Antecubital A/P Problem List: (1) HTN (hypertension) Status: Chronic (2) Traumatic brain injury Status: Acute (3) Insomnia Status: Acute (4) Urinary retention Status: Resolved (5) Protein calorie malnutrition Status: Acute Assessment and Plan 1. Traumatic brain injury: CT showed right occipital bone fracture with intraparenchymal hemorrhage, bilateral subdural hematomas, and subarachnoid hemorrhages. S/P right frontal bur hole, right occipital craniectomy with SDH evacuation, left frontotemporoparietal decompressive craniotomy, and subsequent bone flap replacement. Continue OT. PT signed off. Continue Keppra for seizure prophylaxis. Neurosurgery has signed off. 2. Protein calorie malnutrition. Tolerating diet by mouth. Encourage oral intake. 3. Hypertension: Continue lisinopril, metoprolol. 4. Urinary retention: Resolved. 5. Insomnia: Benadryl as needed. 6. DVT prophylaxis: Lovenox. Discharge Planning Patient will need long-term placement. Case management assisting with discharge planning. Kaushik Adams MD Jun 03, 2016 15:19
[2016-06-03 17:32] VITALS: BP 96/67; PULSE 63; RESP 17; TEMP 96.1; O2SAT 100
[2016-06-03 20:00] VITALS: BP 109/69; PULSE 71; RESP 20; TEMP 96.5; O2SAT 99
[2016-06-04 08:00] VITALS: BP 107/66; PULSE 72; RESP 20; TEMP 96; O2SAT 98
[2016-06-04] MEDS: levETIRAcetam 500 MG/5 ML UDC PO SCH ×2 (08:21→21:55)
[2016-06-04] MEDS: LISINOPRIL 10 MG TAB PO SCH (08:21)
[2016-06-04] MEDS: METOPROLOL TARTRATE 25 MG TAB PO/GT SCH ×2 (08:21→21:00)
[2016-06-04] MEDS: METHADONE HCL 10 MG/10 ML ORAL SOLUTION G-TUBE SCH ×2 (08:24→21:55)
--- NOTE | 2016-06-04 08:58 | HHI.PR ---
Subjective Remarks Patient eating breakfast this time, no acute concerns. Stable overnight. Objective Vitals Vital Signs Date Time Temp Pulse Resp B/P Pulse Ox O2 Delivery O2 Flow Rate FiO2 06/03/16 20:00 96.5 71 20 109/69 99 06/03/16 17:32 96.1 63 17 96/67 100 06/03/16 13:35 96.4 68 16 102/68 100 06/03/16 10:14 16 I/O 06/03/16 06/03/16 06/03/16 06/04/16 06/04/16 06/04/16 07:00 15:00 23:00 07:00 15:00 23:00 Intake Total 720 ml 240 ml 240 ml Balance 720 ml 240 ml 240 ml Intake Oral 720 ml 240 ml 240 ml # Voids 3 3 1 2 # Bowel Movements 0 0 0 Imaging Last Impressions Chest X-Ray 03/27/16 0000 Signed Impressions: Service Date/Time: Sunday, March 27, 2016 03:46 - CONCLUSION: No significant change mild parenchymal opacities of the left lung. Duy Skelton MD Liver Ultrasound 03/18/16 0000 Signed Impressions: Service Date/Time: Friday, March 18, 2016 17:01 - CONCLUSION: Ultrasound appearance of the liver and other right upper quadrant structures is within normal limits. Duy Skelton MD Head CT 03/09/16 0600 Signed Impressions: Service Date/Time: Wednesday, March 09, 2016 04:21 - CONCLUSION: 1. Mild improvement of the cerebral edema in the left cerebral hemisphere. 2. Otherwise , no other new or significant changes. Alli Jj MD Head CTA 02/16/16 0000 Signed Impressions: Service Date/Time: Tuesday, February 16, 2016 04:31 - CONCLUSION: I do not see an etiology for the patient's cerebellar hemorrhage on the right. Small supratentorial vessels in a 65-year-old. Etiology of this finding is not apparent. Trace subdural blood and subarachnoid blood persist over both convexities. Earl Gaitan MD FACR Cervical Spine CT 02/15/16 0445 Signed Impressions: Service Date/Time: January 04:57 - CONCLUSION: 1. Slight neural foramina compromise bilateral C4-5 and C5-6 in addition to bilateral lateral recess compromise at these levels and no significant thecal sac stenosis. 2. There is also slight neural foramina compromise right C3-C4. 3. Nonspecific lucencies in the spine may be osteoporotic changes, however myeloma is difficult to exclude. Ariadne Feng MD Objective Remarks GENERAL: Well-nourished, well-developed patient. Not in distress. SKIN: Warm and dry. No rash of generalized distribution noted. HEAD: Normocephalic. Atraumatic. ENT: No nasal bleeding or discharge. Mucous membranes pink and moist. NECK: Supple. Trachea midline. CARDIOVASCULAR: Regular rate and rhythm. No murmur gallop or rub. RESPIRATORY: No accessory muscle use. Clear to auscultation. Breath sounds equal bilaterally. GASTROINTESTINAL: Abdomen soft, non-tender, nondistended. Normoactive bowel sounds x4. Previous PEG tube site healing well. GENITOURINARY: Patient voiding spontaneously. MUSCULOSKELETAL: No obvious deformities. Extremities without clubbing, cyanosis , or edema. NEUROLOGICAL: Awake and alert, oriented to self. Normal speech noted at this time. Procedures 02/14 with right frontal bur hole and left subclavian line placement 02/15 with right occipital craniectomy with SDH evacuation 02/20 tracheostomy and PEG placement 02/25 left frontal temporoparietal decompressive craniotomy 03/06 PICC 03/29 bone flap replacement Date of Insertion: Apr 10, 2016 Date of Removal: Apr 22, 2016 Date of Insertion: Mar 06, 2016 Line: PICC Side: Right Location: Antecubital A/P Problem List: (1) HTN (hypertension) Status: Chronic (2) Traumatic brain injury Status: Acute (3) Insomnia Status: Acute (4) Urinary retention Status: Resolved (5) Protein calorie malnutrition Status: Acute Assessment and Plan 65-year-old male with: 1. S/P traumatic brain injury: Initial head CT with right occipital bone fracture along with intraparenchymal hemorrhage, bilateral subdural hematomas, and subarachnoid hemorrhages. Patient is status post right frontal bur hole, right occipital craniectomy with SDH evacuation, PEG placement, left frontal temporoparietal decompressive craniotomy, and subsequent bone flap replacement. -Continue PT/ST/OT -Continue Keppra for seizure prophylaxis- - neurosurgery signed off 2. Protein Calorie Malnutrition: Patient tolerating by mouth diet. Encouraged oral intake. 3. HTN: Continue lisinopril. Continue Metoprolol at 25 mg twice a day. Will continue to monitor and adjust BP meds as needed. 4. Urinary retention: Resolved. Now voiding spontaneously. Monitor. 5. DVT prophylaxis: Lovenox subcutaneous. 6. Insomnia- Benadryl PRN No change in current management. Care discussed with patient, RN, Dr. Adams Discharge Planning Case management assisting with placement. Pat Mora Jun 04, 2016 08:58
[2016-06-04] MEDS: ENOXAPARIN SODIUM 40 MG/0.4 ML SYRINGE SQ SCH (10:56)
[2016-06-04 12:00] VITALS: BP 105/70; PULSE 61; RESP 20; TEMP 95.8; O2SAT 99
[2016-06-04 16:00] VITALS: BP 98/68; PULSE 62; RESP 20; TEMP 95.6; O2SAT 98
[2016-06-04 20:00] VITALS: BP 120/69; PULSE 58; RESP 19; TEMP 97.2; O2SAT 99
[2016-06-05 08:40] VITALS: BP 113/82; PULSE 77; RESP 20; TEMP 96.6; O2SAT 98
[2016-06-05] MEDS: levETIRAcetam 500 MG/5 ML UDC PO SCH ×2 (09:08→22:27)
[2016-06-05] MEDS: METOPROLOL TARTRATE 25 MG TAB PO/GT SCH ×2 (09:08→22:27)
[2016-06-05] MEDS: LISINOPRIL 10 MG TAB PO SCH (09:08)
[2016-06-05 09:09] VITALS: O2SAT 98
[2016-06-05] MEDS: METHADONE HCL 10 MG/10 ML ORAL SOLUTION G-TUBE SCH ×2 (09:10→22:27)
--- NOTE | 2016-06-05 10:34 | HHI.PR ---
Subjective Remarks Patient seen in room, sitting up in bed watching TV. No acute concerns at this time. Objective Vitals Vital Signs Date Time Temp Pulse Resp B/P Pulse Ox O2 Delivery O2 Flow Rate FiO2 06/05/16 09:09 98 06/05/16 08:40 96.6 77 20 113/82 98 06/04/16 22:55 16 06/04/16 20:00 97.2 58 19 120/69 99 06/04/16 16:00 95.6 62 20 98/68 98 06/04/16 12:00 95.8 61 20 105/70 99 I/O 06/04/16 06/04/16 06/04/16 06/05/16 06/05/16 06/05/16 07:00 15:00 23:00 07:00 15:00 23:00 Intake Total 240 ml 600 ml 240 ml Balance 240 ml 600 ml 240 ml Intake Oral 240 ml 600 ml 240 ml # Voids 2 2 5 # Bowel Movements 0 0 Imaging Last Impressions Chest X-Ray 03/27/16 0000 Signed Impressions: Service Date/Time: Sunday, March 27, 2016 03:46 - CONCLUSION: No significant change mild parenchymal opacities of the left lung. Duy Skelton MD Liver Ultrasound 03/18/16 0000 Signed Impressions: Service Date/Time: Friday, March 18, 2016 17:01 - CONCLUSION: Ultrasound appearance of the liver and other right upper quadrant structures is within normal limits. Duy Skelton MD Head CT 03/09/16 0600 Signed Impressions: Service Date/Time: Wednesday, March 09, 2016 04:21 - CONCLUSION: 1. Mild improvement of the cerebral edema in the left cerebral hemisphere. 2. Otherwise , no other new or significant changes. Alli Jj MD Head CTA 02/16/16 0000 Signed Impressions: Service Date/Time: Tuesday, February 16, 2016 04:31 - CONCLUSION: I do not see an etiology for the patient's cerebellar hemorrhage on the right. Small supratentorial vessels in a 65-year-old. Etiology of this finding is not apparent. Trace subdural blood and subarachnoid blood persist over both convexities. Earl Gaitan MD FACR Cervical Spine CT 02/15/16 0445 Signed Impressions: Service Date/Time: January 04:57 - CONCLUSION: 1. Slight neural foramina compromise bilateral C4-5 and C5-6 in addition to bilateral lateral recess compromise at these levels and no significant thecal sac stenosis. 2. There is also slight neural foramina compromise right C3-C4. 3. Nonspecific lucencies in the spine may be osteoporotic changes, however myeloma is difficult to exclude. Ariadne Feng MD Objective Remarks GENERAL: Well-nourished, well-developed patient. Not in distress. SKIN: Warm and dry. No rash of generalized distribution noted. HEAD: Normocephalic. Atraumatic. ENT: No nasal bleeding or discharge. Mucous membranes pink and moist. NECK: Supple. Trachea midline. CARDIOVASCULAR: Regular rate and rhythm. No murmur gallop or rub. RESPIRATORY: No accessory muscle use. Clear to auscultation. Breath sounds equal bilaterally. GASTROINTESTINAL: Abdomen soft, non-tender, nondistended. Normoactive bowel sounds x4. Previous PEG tube site healing well. GENITOURINARY: Patient voiding spontaneously. MUSCULOSKELETAL: No obvious deformities. Extremities without clubbing, cyanosis , or edema. NEUROLOGICAL: Awake and alert, oriented to self. Normal speech noted at this time. Procedures 02/14 with right frontal bur hole and left subclavian line placement 02/15 with right occipital craniectomy with SDH evacuation 02/20 tracheostomy and PEG placement 02/25 left frontal temporoparietal decompressive craniotomy 03/06 PICC 03/29 bone flap replacement Date of Insertion: Apr 10, 2016 Date of Removal: Apr 22, 2016 Date of Insertion: Mar 06, 2016 Line: PICC Side: Right Location: Antecubital A/P Problem List: (1) HTN (hypertension) Status: Chronic (2) Traumatic brain injury Status: Acute (3) Insomnia Status: Acute (4) Urinary retention Status: Resolved (5) Protein calorie malnutrition Status: Acute Assessment and Plan 65-year-old male with: 1. S/P traumatic brain injury: Initial head CT with right occipital bone fracture along with intraparenchymal hemorrhage, bilateral subdural hematomas, and subarachnoid hemorrhages. Patient is status post right frontal bur hole, right occipital craniectomy with SDH evacuation, PEG placement, left frontal temporoparietal decompressive craniotomy, and subsequent bone flap replacement. -Continue PT/ST/OT -Continue Keppra for seizure prophylaxis- - neurosurgery signed off 2. Protein Calorie Malnutrition: Patient tolerating by mouth diet. Encouraged oral intake. 3. HTN: Continue lisinopril. Continue Metoprolol at 25 mg twice a day. Will continue to monitor and adjust BP meds as needed. 4. Urinary retention: Resolved. Now voiding spontaneously. Monitor. 5. DVT prophylaxis: Lovenox subcutaneous. 6. Insomnia- Benadryl PRN No change in current management. Care discussed with patient, RN, Dr. Adams Discharge Planning Case management assisting with placement. Pat Mora Jun 05, 2016 10:34
[2016-06-05] MEDS: ENOXAPARIN SODIUM 40 MG/0.4 ML SYRINGE SQ SCH (12:04)
[2016-06-05 12:42] VITALS: BP 131/70; PULSE 62; RESP 20; TEMP 96.2; O2SAT 94
[2016-06-05 16:00] VITALS: BP 99/66; PULSE 68; RESP 20; TEMP 96.3; O2SAT 97
[2016-06-05 20:00] VITALS: BP 104/67; PULSE 72; RESP 20; TEMP 96.7; O2SAT 98
[2016-06-06 08:06] VITALS: BP 115/82; PULSE 62; RESP 18; TEMP 95.9; O2SAT 100
--- NOTE | 2016-06-06 09:55 | HHI.PR ---
Subjective Remarks Patient resting comfortably in bed, no complaints at this time. Objective Vitals Vital Signs Date Time Temp Pulse Resp B/P Pulse Ox O2 Delivery O2 Flow Rate FiO2 06/06/16 08:06 95.9 62 18 115/82 100 06/05/16 20:00 96.7 72 20 104/67 98 06/05/16 16:00 96.3 68 20 99/66 97 06/05/16 12:42 96.2 62 20 131/70 94 I/O 06/05/16 06/05/16 06/05/16 06/06/16 06/06/16 06/06/16 07:00 15:00 23:00 07:00 15:00 23:00 Intake Total 960 ml 360 ml 120 ml Balance 960 ml 360 ml 120 ml Intake Oral 960 ml 360 ml 120 ml # Voids 3 1 1 # Bowel Movements 1 0 0 Imaging Last Impressions Chest X-Ray 03/27/16 0000 Signed Impressions: Service Date/Time: Sunday, March 27, 2016 03:46 - CONCLUSION: No significant change mild parenchymal opacities of the left lung. Duy Skelton MD Liver Ultrasound 03/18/16 0000 Signed Impressions: Service Date/Time: Friday, March 18, 2016 17:01 - CONCLUSION: Ultrasound appearance of the liver and other right upper quadrant structures is within normal limits. Duy Skelton MD Head CT 03/09/16 0600 Signed Impressions: Service Date/Time: Wednesday, March 09, 2016 04:21 - CONCLUSION: 1. Mild improvement of the cerebral edema in the left cerebral hemisphere. 2. Otherwise , no other new or significant changes. Alli Jj MD Head CTA 02/16/16 0000 Signed Impressions: Service Date/Time: Tuesday, February 16, 2016 04:31 - CONCLUSION: I do not see an etiology for the patient's cerebellar hemorrhage on the right. Small supratentorial vessels in a 65-year-old. Etiology of this finding is not apparent. Trace subdural blood and subarachnoid blood persist over both convexities. Earl Gaitan MD FACR Cervical Spine CT 02/15/16 0445 Signed Impressions: Service Date/Time: January 04:57 - CONCLUSION: 1. Slight neural foramina compromise bilateral C4-5 and C5-6 in addition to bilateral lateral recess compromise at these levels and no significant thecal sac stenosis. 2. There is also slight neural foramina compromise right C3-C4. 3. Nonspecific lucencies in the spine may be osteoporotic changes, however myeloma is difficult to exclude. Ariadne Feng MD Objective Remarks GENERAL: Well-nourished, well-developed patient. Not in distress. SKIN: Warm and dry. No rash of generalized distribution noted. HEAD: Normocephalic. Atraumatic. ENT: No nasal bleeding or discharge. Mucous membranes pink and moist. NECK: Supple. Trachea midline. CARDIOVASCULAR: Regular rate and rhythm. No murmur gallop or rub. RESPIRATORY: No accessory muscle use. Clear to auscultation. Breath sounds equal bilaterally. GASTROINTESTINAL: Abdomen soft, non-tender, nondistended. Normoactive bowel sounds x4. Previous PEG tube site healing well. GENITOURINARY: Patient voiding spontaneously. MUSCULOSKELETAL: No obvious deformities. Extremities without clubbing, cyanosis , or edema. NEUROLOGICAL: Awake and alert, oriented to self. Normal speech noted at this time. Procedures 02/14 with right frontal bur hole and left subclavian line placement 02/15 with right occipital craniectomy with SDH evacuation 02/20 tracheostomy and PEG placement 02/25 left frontal temporoparietal decompressive craniotomy 03/06 PICC 03/29 bone flap replacement Date of Insertion: Apr 10, 2016 Date of Removal: Apr 22, 2016 Date of Insertion: Mar 06, 2016 Line: PICC Side: Right Location: Antecubital A/P Problem List: (1) HTN (hypertension) Status: Chronic (2) Traumatic brain injury Status: Acute (3) Insomnia Status: Acute (4) Urinary retention Status: Resolved (5) Protein calorie malnutrition Status: Acute Assessment and Plan 65-year-old male with: 1. S/P traumatic brain injury: Initial head CT with right occipital bone fracture along with intraparenchymal hemorrhage, bilateral subdural hematomas, and subarachnoid hemorrhages. Patient is status post right frontal bur hole, right occipital craniectomy with SDH evacuation, PEG placement, left frontal temporoparietal decompressive craniotomy, and subsequent bone flap replacement. -Continue PT/ST/OT -Continue Keppra for seizure prophylaxis- - neurosurgery signed off 2. Protein Calorie Malnutrition: Patient tolerating by mouth diet. Encouraged oral intake. 3. HTN: Continue lisinopril. Continue Metoprolol at 25 mg twice a day. Will continue to monitor and adjust BP meds as needed. 4. Urinary retention: Resolved. Now voiding spontaneously. Monitor. 5. DVT prophylaxis: Lovenox subcutaneous. 6. Insomnia- Benadryl PRN No change in current management. Care discussed with patient, RN, Dr. Adams Discharge Planning Case management assisting with placement. Pat Mora Jun 06, 2016 09:55
[2016-06-06] MEDS: levETIRAcetam 500 MG/5 ML UDC PO SCH ×2 (10:22→20:37)
[2016-06-06] MEDS: LISINOPRIL 10 MG TAB PO SCH (10:24)
[2016-06-06] MEDS: ENOXAPARIN SODIUM 40 MG/0.4 ML SYRINGE SQ SCH (10:24)
[2016-06-06] MEDS: METHADONE HCL 10 MG/10 ML ORAL SOLUTION G-TUBE SCH ×2 (10:24→20:37)
[2016-06-06] MEDS: METOPROLOL TARTRATE 25 MG TAB PO/GT SCH ×2 (10:24→20:37)
[2016-06-06 11:55] VITALS: BP 133/88; PULSE 76; RESP 18; TEMP 95.4; O2SAT 99
[2016-06-06 16:06] VITALS: BP 109/70; PULSE 64; RESP 17; TEMP 95.8; O2SAT 100
[2016-06-06 20:00] VITALS: BP 106/64; PULSE 61; RESP 18; TEMP 97.8; O2SAT 99
[2016-06-07 08:07] VITALS: BP 123/79; PULSE 81; RESP 16; TEMP 95.5; O2SAT 100
[2016-06-07] MEDS: METHADONE HCL 10 MG/10 ML ORAL SOLUTION G-TUBE SCH ×2 (09:00→20:38)
[2016-06-07] MEDS: levETIRAcetam 500 MG/5 ML UDC PO SCH ×2 (09:00→20:37)
[2016-06-07] MEDS: METOPROLOL TARTRATE 25 MG TAB PO/GT SCH ×2 (09:40→20:37)
[2016-06-07] MEDS: LISINOPRIL 10 MG TAB PO SCH (09:40)
[2016-06-07 12:06] VITALS: BP 119/80; PULSE 75; RESP 18; TEMP 96.5; O2SAT 98
[2016-06-07] MEDS: ENOXAPARIN SODIUM 40 MG/0.4 ML SYRINGE SQ SCH (12:40)
--- NOTE | 2016-06-07 13:25 | HHI.PR ---
Subjective Remarks Follow-up for TBI No complaints, denies any shortness of breath, nausea, vomiting, eating well. I 'm making. Discussed with RN. Objective Vitals Vital Signs Date Time Temp Pulse Resp B/P Pulse Ox O2 Delivery O2 Flow Rate FiO2 06/07/16 10:00 18 06/07/16 08:07 95.5 81 16 123/79 100 06/06/16 20:00 97.8 61 18 106/64 99 06/06/16 16:06 95.8 64 17 109/70 100 I/O 06/06/16 06/06/16 06/06/16 06/07/16 06/07/16 06/07/16 07:00 15:00 23:00 07:00 15:00 23:00 Intake Total 120 ml 600 ml 680 ml Balance 120 ml 600 ml 680 ml Intake Oral 120 ml 600 ml 680 ml # Voids 1 4 4 # Bowel Movements 0 1 Objective Remarks GENERAL: Well-nourished, well-developed patient. Not in distress. SKIN: Warm and dry. No rash of generalized distribution noted. HEAD: Normocephalic. Atraumatic. Pupils equal reactive to light. ENT: No nasal bleeding or discharge. Mucous membranes pink and moist. NECK: Supple. Trachea midline. CARDIOVASCULAR: Regular rate and rhythm. No murmur gallop or rub. RESPIRATORY: No accessory muscle use. Clear to auscultation. Breath sounds equal bilaterally. GASTROINTESTINAL: Abdomen soft, non-tender, nondistended. Normoactive bowel sounds x4. Previous PEG tube site healing well. MUSCULOSKELETAL: No obvious deformities. Extremities without clubbing, cyanosis , or edema. NEUROLOGICAL: Alert, awake, oriented 3, no focal deficits. Procedures 02/14 with right frontal bur hole and left subclavian line placement 02/15 with right occipital craniectomy with SDH evacuation 02/20 tracheostomy and PEG placement 02/25 left frontal temporoparietal decompressive craniotomy 03/06 PICC 03/29 bone flap replacement Date of Insertion: Apr 10, 2016 Date of Removal: Apr 22, 2016 Date of Insertion: Mar 06, 2016 Line: PICC Side: Right Location: Antecubital A/P Problem List: (1) HTN (hypertension) Status: Chronic (2) Traumatic brain injury Status: Acute (3) Insomnia Status: Acute (4) Urinary retention Status: Resolved (5) Protein calorie malnutrition Status: Acute Assessment and Plan 65-year-old male with: 1. S/P traumatic brain injury: Initial head CT with right occipital bone fracture along with intraparenchymal hemorrhage, bilateral subdural hematomas, and subarachnoid hemorrhages. Patient is status post right frontal bur hole, right occipital craniectomy with SDH evacuation, PEG placement, left frontal temporoparietal decompressive craniotomy, and subsequent bone flap replacement. Continue therapy, continue Keppra for seizure prophylaxis, neurosurgery signed off. 2. Protein Calorie Malnutrition: Patient tolerating by mouth diet. Encouraged oral intake. 3. HTN: Continue lisinopril. Continue Metoprolol at 25 mg twice a day. 4. Urinary retention: Resolved. Now voiding spontaneously. Monitor. 5. DVT prophylaxis: Lovenox subcutaneous. 6. Insomnia- Benadryl PRN No change in current management. Discharge Planning Discussed with RN, awaiting placement. Ryann Hansen MD Jun 07, 2016 13:25
[2016-06-07 20:26] VITALS: BP 96/66; PULSE 67; RESP 18; TEMP 96.5; O2SAT 99
[2016-06-08 04:52] VITALS: BP 105/60; PULSE 125; RESP 18; TEMP 99; O2SAT 94
[2016-06-08] MEDS: METOPROLOL TARTRATE 25 MG TAB PO/GT SCH ×3 (09:00→20:34)
[2016-06-08] MEDS: LISINOPRIL 10 MG TAB PO SCH ×2 (09:00→09:45)
[2016-06-08 09:14] VITALS: BP 110/75; PULSE 87; RESP 20; TEMP 96.6; O2SAT 99
[2016-06-08] MEDS: METHADONE HCL 10 MG/10 ML ORAL SOLUTION G-TUBE SCH ×2 (09:45→20:34)
[2016-06-08] MEDS: levETIRAcetam 500 MG/5 ML UDC PO SCH ×2 (09:45→20:34)
[2016-06-08 11:56] VITALS: BP 123/67; PULSE 90; RESP 20; TEMP 97.7; O2SAT 98
[2016-06-08] MEDS: ENOXAPARIN SODIUM 40 MG/0.4 ML SYRINGE SQ SCH (12:53)
--- NOTE | 2016-06-08 13:20 | HHI.PR ---
Subjective Remarks Follow-up for TBI next No overnight events, patient does have any complaints. Just ate lunch. Objective Vitals Vital Signs Date Time Temp Pulse Resp B/P Pulse Ox O2 Delivery O2 Flow Rate FiO2 06/08/16 11:56 97.7 90 20 123/67 98 06/08/16 10:48 18 06/08/16 09:14 96.6 87 20 110/75 99 06/08/16 04:52 06/07/16 20:26 96.5 67 18 96/66 99 I/O 06/07/16 06/07/16 06/07/16 06/08/16 06/08/16 06/08/16 07:00 15:00 23:00 07:00 15:00 23:00 Intake Total 680 ml 600 ml 240 ml Balance 680 ml 600 ml 240 ml Intake Oral 680 ml 600 ml 240 ml # Voids 4 3 # Bowel Movements 1 Objective Remarks GENERAL: Well-nourished, well-developed patient. Not in distress. SKIN: Warm and dry. No rash of generalized distribution noted. HEAD: Normocephalic. Atraumatic. Pupils equal reactive to light. ENT: No nasal bleeding or discharge. Mucous membranes pink and moist. NECK: Supple. Trachea midline. CARDIOVASCULAR: Regular rate and rhythm. No murmur gallop or rub. RESPIRATORY: No accessory muscle use. Clear to auscultation. Breath sounds equal bilaterally. GASTROINTESTINAL: Abdomen soft, non-tender, nondistended. Normoactive bowel sounds x4. Previous PEG tube site healing well. MUSCULOSKELETAL: No obvious deformities. Extremities without clubbing, cyanosis , or edema. NEUROLOGICAL: Alert, awake, oriented 3, no focal deficits. Procedures 02/14 with right frontal bur hole and left subclavian line placement 02/15 with right occipital craniectomy with SDH evacuation 02/20 tracheostomy and PEG placement 02/25 left frontal temporoparietal decompressive craniotomy 03/06 PICC 03/29 bone flap replacement Date of Insertion: Apr 10, 2016 Date of Removal: Apr 22, 2016 Date of Insertion: Mar 06, 2016 Line: PICC Side: Right Location: Antecubital A/P Problem List: (1) HTN (hypertension) Status: Chronic (2) Traumatic brain injury Status: Acute (3) Insomnia Status: Acute (4) Urinary retention Status: Resolved (5) Protein calorie malnutrition Status: Acute Assessment and Plan 65-year-old male with: 1. S/P traumatic brain injury: Initial head CT with right occipital bone fracture along with intraparenchymal hemorrhage, bilateral subdural hematomas, and subarachnoid hemorrhages. Patient is status post right frontal bur hole, right occipital craniectomy with SDH evacuation, PEG placement, left frontal temporoparietal decompressive craniotomy, and subsequent bone flap replacement. Continue therapy, continue Keppra for seizure prophylaxis, neurosurgery signed off. 2. Protein Calorie Malnutrition: Patient tolerating by mouth diet. Encouraged oral intake. 3. HTN: Continue lisinopril. Continue Metoprolol at 25 mg twice a day. 4. Urinary retention: Resolved. Now voiding spontaneously. Monitor. 5. DVT prophylaxis: Lovenox subcutaneous. 6. Insomnia- Benadryl PRN 06/08/16 No overnight events, chest pain or shortness of breath. No change in management Awaiting placement. Discharge Planning Discussed with RN, awaiting placement. Ryann Hansen MD Jun 08, 2016 13:20
[2016-06-08 16:10] VITALS: BP 123/73; PULSE 90; RESP 20; TEMP 97; O2SAT 96
[2016-06-08 20:00] VITALS: BP 120/75; PULSE 80; RESP 18; TEMP 96.5; O2SAT 96
[2016-06-09 08:02] VITALS: BP 129/78; PULSE 78; RESP 20; TEMP 96.5; O2SAT 99
[2016-06-09] MEDS: LISINOPRIL 10 MG TAB PO SCH (08:25)
[2016-06-09] MEDS: METHADONE HCL 10 MG/10 ML ORAL SOLUTION G-TUBE SCH ×2 (08:25→21:34)
[2016-06-09] MEDS: METOPROLOL TARTRATE 25 MG TAB PO/GT SCH ×2 (08:25→21:34)
[2016-06-09] MEDS: levETIRAcetam 500 MG/5 ML UDC PO SCH ×2 (08:25→21:34)
[2016-06-09] MEDS: ENOXAPARIN SODIUM 40 MG/0.4 ML SYRINGE SQ SCH (11:11)
--- NOTE | 2016-06-09 11:34 | HHI.PR ---
Subjective Remarks No overnight events, no complaints. Slept well. Objective Vitals Vital Signs Date Time Temp Pulse Resp B/P Pulse Ox O2 Delivery O2 Flow Rate FiO2 06/09/16 08:02 96.5 78 20 129/78 99 06/08/16 20:00 96.5 80 18 120/75 96 06/08/16 16:10 97.0 90 20 123/73 96 06/08/16 11:56 97.7 90 20 123/67 98 I/O 06/08/16 06/08/16 06/08/16 06/09/16 06/09/16 06/09/16 07:00 15:00 23:00 07:00 15:00 23:00 Intake Total 240 ml 1080 ml 240 ml Balance 240 ml 1080 ml 240 ml Intake Oral 240 ml 1080 ml 240 ml # Voids 1 2 Objective Remarks GENERAL: Not in distress CARDIOVASCULAR: Regular rate and rhythm. No murmur gallop or rub. RESPIRATORY: No accessory muscle use. Clear to auscultation. GASTROINTESTINAL: Abdomen soft, non-tender, nondistended. MUSCULOSKELETAL: No obvious deformities. NEUROLOGICAL: Alert, awake, oriented 3, no focal deficits. Procedures 02/14 with right frontal bur hole and left subclavian line placement 02/15 with right occipital craniectomy with SDH evacuation 02/20 tracheostomy and PEG placement 02/25 left frontal temporoparietal decompressive craniotomy 03/06 PICC 03/29 bone flap replacement Date of Insertion: Apr 10, 2016 Date of Removal: Apr 22, 2016 Date of Insertion: Mar 06, 2016 Line: PICC Side: Right Location: Antecubital A/P Problem List: (1) HTN (hypertension) Status: Chronic (2) Traumatic brain injury Status: Acute (3) Insomnia Status: Acute (4) Urinary retention Status: Resolved (5) Protein calorie malnutrition Status: Acute Assessment and Plan 65-year-old male with: 1. S/P traumatic brain injury: Initial head CT with right occipital bone fracture along with intraparenchymal hemorrhage, bilateral subdural hematomas, and subarachnoid hemorrhages. Patient is status post right frontal bur hole, right occipital craniectomy with SDH evacuation, PEG placement, left frontal temporoparietal decompressive craniotomy, and subsequent bone flap replacement. Continue therapy, continue Keppra for seizure prophylaxis, neurosurgery signed off. 2. Protein Calorie Malnutrition: Patient tolerating by mouth diet. Encouraged oral intake. 3. HTN: Continue lisinopril. Continue Metoprolol at 25 mg twice a day. 4. Urinary retention: Resolved. Now voiding spontaneously. Monitor. 5. DVT prophylaxis: Lovenox subcutaneous. 6. Insomnia- Benadryl PRN 06/08/16 No overnight events, chest pain or shortness of breath. No change in management Awaiting placement. 06/09/16 No overnight events, no complaints. Slept well. Still awaiting placement. Discharge Planning Discussed with RN, awaiting placement. Ryann Hansen MD Jun 09, 2016 11:34
[2016-06-09 12:15] VITALS: BP 118/78; PULSE 69; RESP 20; TEMP 99; O2SAT 100
[2016-06-09 16:41] VITALS: BP 109/70; PULSE 58; RESP 20; TEMP 97.2; O2SAT 96
[2016-06-09 20:48] VITALS: BP 113/67; PULSE 64; RESP 18; TEMP 96.3; O2SAT 99
[2016-06-10 08:00] VITALS: BP 107/70; PULSE 74; RESP 16; TEMP 97.2; O2SAT 97
[2016-06-10] MEDS: LISINOPRIL 10 MG TAB PO SCH (09:00)
[2016-06-10] MEDS: METOPROLOL TARTRATE 25 MG TAB PO/GT SCH ×2 (09:00→21:40)
[2016-06-10] MEDS: levETIRAcetam 500 MG/5 ML UDC PO SCH (09:40)
[2016-06-10] MEDS: METHADONE HCL 10 MG/10 ML ORAL SOLUTION G-TUBE SCH (09:40)
[2016-06-10 12:00] VITALS: BP 126/84; PULSE 77; RESP 16; TEMP 95.8; O2SAT 100
[2016-06-10] MEDS: ENOXAPARIN SODIUM 40 MG/0.4 ML SYRINGE SQ SCH (12:06)
--- NOTE | 2016-06-10 14:32 | HHI.PR ---
Subjective Remarks Patient seen this morning around 11 AM. Says he feels well. No chest pain or shortness of breath. Says he is feeling well. Objective Vital Signs Date Time Temp Pulse Resp B/P Pulse Ox O2 Delivery O2 Flow Rate FiO2 06/10/16 12:00 95.8 77 16 126/84 100 06/10/16 08:00 97.2 74 16 107/70 97 06/09/16 20:48 96.3 64 18 113/67 99 06/09/16 16:41 97.2 58 20 109/70 96 I/O 06/09/16 06/09/16 06/09/16 06/10/16 06/10/16 06/10/16 07:00 15:00 23:00 07:00 15:00 23:00 Intake Total 240 ml 960 ml Balance 240 ml 960 ml Intake Oral 240 ml 960 ml # Voids 2 4 Imaging Last Impressions Chest X-Ray 03/27/16 0000 Signed Impressions: Service Date/Time: Sunday, March 27, 2016 03:46 - CONCLUSION: No significant change mild parenchymal opacities of the left lung. Duy Skelton MD Liver Ultrasound 03/18/16 0000 Signed Impressions: Service Date/Time: Friday, March 18, 2016 17:01 - CONCLUSION: Ultrasound appearance of the liver and other right upper quadrant structures is within normal limits. Duy Skelton MD Head CT 03/09/16 0600 Signed Impressions: Service Date/Time: Wednesday, March 09, 2016 04:21 - CONCLUSION: 1. Mild improvement of the cerebral edema in the left cerebral hemisphere. 2. Otherwise , no other new or significant changes. Alli Jj MD Head CTA 02/16/16 0000 Signed Impressions: Service Date/Time: Tuesday, February 16, 2016 04:31 - CONCLUSION: I do not see an etiology for the patient's cerebellar hemorrhage on the right. Small supratentorial vessels in a 65-year-old. Etiology of this finding is not apparent. Trace subdural blood and subarachnoid blood persist over both convexities. Earl Gaitan MD FACR Cervical Spine CT 02/15/16 0445 Signed Impressions: Service Date/Time: January 04:57 - CONCLUSION: 1. Slight neural foramina compromise bilateral C4-5 and C5-6 in addition to bilateral lateral recess compromise at these levels and no significant thecal sac stenosis. 2. There is also slight neural foramina compromise right C3-C4. 3. Nonspecific lucencies in the spine may be osteoporotic changes, however myeloma is difficult to exclude. Ariadne Feng MD Procedures 02/14 with right frontal bur hole and left subclavian line placement 02/15 with right occipital craniectomy with SDH evacuation 02/20 tracheostomy and PEG placement 02/25 left frontal temporoparietal decompressive craniotomy 03/06 PICC 03/29 bone flap replacement 05/24 PEG tube removed at bedside. Date of Insertion: Apr 10, 2016 Date of Removal: Apr 22, 2016 Date of Insertion: Mar 06, 2016 Line: PICC Side: Right Location: Antecubital Objective Remarks GENERAL: Sitting up in bed. Appears comfortable. Alert and oriented 3. SKIN: Warm and dry. HEAD: Normocephalic. EYES: No scleral icterus. No injection or drainage. NECK: Supple, trachea midline. No JVD. CARDIOVASCULAR: Regular rate and rhythm without murmurs, gallops, or rubs. RESPIRATORY: Breath sounds equal bilaterally. No accessory muscle use. GASTROINTESTINAL: Abdomen soft, non-tender, nondistended. Previous PEG tube site healed well. MUSCULOSKELETAL: No cyanosis, or edema. BACK: Nontender without obvious deformity. No CVA tenderness. A/P Assessment and Plan 65-year-old male with: // S/P traumatic brain injury: -Initial head CT with right occipital bone fracture along with intraparenchymal hemorrhage, bilateral subdural hematomas, and subarachnoid hemorrhages. -S/p right frontal bur hole, right occipital craniectomy with SDH evacuation, PEG placement (and subsequent removal), left frontal temporoparietal decompressive craniotomy, and subsequent bone flap replacement. -Continue PT/ST/OT. -Continue Keppra for seizure prophylaxis. -Neurosurgery has signed off. // Protein Calorie malnutrition: -Initially required PEG tube, however this has been removed, healing well. -Tolerating by mouth nutrition. Appreciate dietary assistance. -Encourage by mouth intake. // HTN: Stable. -Continue on metoprolol 25 mg bid and lisinopril 10 mg daily. -Continue to Monitor and adjust BP meds as needed. // Urinary retention: Resolved. -Cuenca removed 04/22 and patient passed voiding trial. Now voiding spontaneously. Monitor. // Insomnia: Controlled on Benadryl prn. //Pain control. No pain. We'll discontinue methadone. Continue to monitor. // DVT prophylaxis: Continue Subcutaneous Lovenox 06/10. Discontinue methadone. Monitor pain. Switch Keppra to tablets. Discharge Planning Discussed with case management. Continue to await placement. Lane Yuan MD Jun 10, 2016 14:32
[2016-06-10 16:00] VITALS: BP 137/93; PULSE 76; RESP 16; TEMP 96.7; O2SAT 98
[2016-06-10 20:00] VITALS: BP 130/78; PULSE 88; RESP 16; TEMP 96.5; O2SAT 100
[2016-06-10] MEDS: levETIRAcetam 500 MG TAB PO SCH (21:40)
[2016-06-10 23:38] VITALS: BP 118/77; PULSE 59; RESP 16; TEMP 96.7; O2SAT 97
[2016-06-11] MEDS ORDERED: METHADONE HCL 10 MG TAB PO SCH (08:00)
[2016-06-11 08:05] VITALS: BP 129/85; PULSE 77; RESP 18; TEMP 96.7; O2SAT 99
[2016-06-11] MEDS: levETIRAcetam 500 MG TAB PO SCH ×2 (08:30→21:01)
[2016-06-11] MEDS: METOPROLOL TARTRATE 25 MG TAB PO/GT SCH ×2 (08:30→21:00)
[2016-06-11] MEDS: LISINOPRIL 10 MG TAB PO SCH (08:30)
[2016-06-11 12:15] VITALS: BP 97/64; PULSE 57; RESP 18; TEMP 96.5; O2SAT 98
[2016-06-11] MEDS: ENOXAPARIN SODIUM 40 MG/0.4 ML SYRINGE SQ SCH (12:42)
[2016-06-11 16:21] VITALS: BP 107/67; PULSE 67; RESP 18; TEMP 96.8; O2SAT 100
--- NOTE | 2016-06-11 17:38 | HHI.PR ---
Subjective Remarks Patient seen today around 12:30. Again, says he feels well. Denies any pain whatsoever. No shortness breath. Nursing reports no issues. Objective Vital Signs Date Time Temp Pulse Resp B/P Pulse Ox O2 Delivery O2 Flow Rate FiO2 06/11/16 16:21 96.8 67 18 107/67 100 06/11/16 12:15 96.5 57 18 97/64 98 06/11/16 08:05 96.7 77 18 129/85 99 06/10/16 23:38 96.7 59 16 118/77 97 06/10/16 20:00 96.5 88 16 130/78 100 I/O 06/10/16 06/10/16 06/10/16 06/11/16 06/11/16 06/11/16 07:00 15:00 23:00 07:00 15:00 23:00 Intake Total 960 ml 240 ml 600 ml Balance 960 ml 240 ml 600 ml Intake Oral 960 ml 240 ml 600 ml # Voids 3 2 1 3 # Bowel Movements 1 1 0 0 Procedures 02/14 with right frontal bur hole and left subclavian line placement 02/15 with right occipital craniectomy with SDH evacuation 02/20 tracheostomy and PEG placement 02/25 left frontal temporoparietal decompressive craniotomy 03/06 PICC 03/29 bone flap replacement 05/24 PEG tube removed at bedside. Date of Insertion: Apr 10, 2016 Date of Removal: Apr 22, 2016 Date of Insertion: Mar 06, 2016 Line: PICC Side: Right Location: Antecubital Objective Remarks GENERAL: Sitting up in chair at bedside. Appears comfortable. Alert and oriented 3. Smiling. Exam otherwise unchanged from day prior. SKIN: Warm and dry. HEAD: Normocephalic. EYES: No scleral icterus. No injection or drainage. NECK: Supple, trachea midline. No JVD. CARDIOVASCULAR: Regular rate and rhythm without murmurs, gallops, or rubs. RESPIRATORY: Breath sounds equal bilaterally. No accessory muscle use. GASTROINTESTINAL: Abdomen soft, non-tender, nondistended. Previous PEG tube site healed well. MUSCULOSKELETAL: No cyanosis, or edema. BACK: Nontender without obvious deformity. No CVA tenderness. A/P Assessment and Plan 65-year-old male with: // S/P traumatic brain injury: -Initial head CT with right occipital bone fracture along with intraparenchymal hemorrhage, bilateral subdural hematomas, and subarachnoid hemorrhages. -S/p right frontal bur hole, right occipital craniectomy with SDH evacuation, PEG placement (and subsequent removal), left frontal temporoparietal decompressive craniotomy, and subsequent bone flap replacement. -Continue PT/ST/OT. -Continue Keppra for seizure prophylaxis. -Neurosurgery has signed off. // Protein Calorie malnutrition: -Initially required PEG tube, however this has been removed, healing well. -Tolerating by mouth nutrition. Appreciate dietary assistance. -Encourage by mouth intake. // HTN: Stable. -Continue on metoprolol 25 mg bid and lisinopril 10 mg daily. -Continue to Monitor and adjust BP meds as needed. // Urinary retention: Resolved. -Cuenca removed 04/22 and patient passed voiding trial. Now voiding spontaneously. Monitor. // Insomnia: Controlled on Benadryl prn. //Pain control. No pain. We'll discontinue methadone. Continue to monitor. // DVT prophylaxis: Continue Subcutaneous Lovenox 06/10. Discontinue methadone. Monitor pain. Switch Keppra to tablets. 06/11. Tolerating methadone taper and Keppra by mouth tablets. Today his last day of methadone. We'll continue to monitor for withdrawal. Discharge Planning Continuing to await placement. Appreciate case management assistance. Lane Yuan MD Jun 11, 2016 17:38
[2016-06-11 20:40] VITALS: BP 98/69; PULSE 69; RESP 16; TEMP 97.3; O2SAT 98
[2016-06-12 08:13] VITALS: BP 121/83; PULSE 76; RESP 20; TEMP 96.4; O2SAT 98
[2016-06-12] MEDS: METOPROLOL TARTRATE 25 MG TAB PO/GT SCH ×2 (09:35→20:59)
[2016-06-12] MEDS: LISINOPRIL 10 MG TAB PO SCH (09:35)
[2016-06-12] MEDS: levETIRAcetam 500 MG TAB PO SCH ×2 (09:35→20:59)
[2016-06-12] MEDS: ENOXAPARIN SODIUM 40 MG/0.4 ML SYRINGE SQ SCH (11:57)
[2016-06-12 12:20] VITALS: BP 112/76; PULSE 60; RESP 20; TEMP 96.4; O2SAT 98
--- NOTE | 2016-06-12 14:22 | HHI.PR ---
Subjective Remarks Follow up for TBI, awaiting placement. The patient is seen lying in bed watching tv. He has no medical complaints today. Denies any pain, headache, lightheadedness, chest pains, shortness of breath, abdominal or urinary complaints. He states he is eating well and ambulating well. Vital signs stable. Objective Vitals Vital Signs Date Time Temp Pulse Resp B/P Pulse Ox O2 Delivery O2 Flow Rate FiO2 06/12/16 12:20 96.4 60 20 112/76 98 06/12/16 08:13 96.4 76 20 121/83 98 06/11/16 20:40 97.3 69 16 98/69 98 06/11/16 16:21 96.8 67 18 107/67 100 I/O 06/11/16 06/11/16 06/11/16 06/12/16 06/12/16 06/12/16 06:59 14:59 22:59 06:59 14:59 22:59 Intake Total 600 ml 700 ml 650 ml Balance 600 ml 700 ml 650 ml Intake Oral 600 ml 700 ml 650 ml # Voids 1 3 0 2 # Bowel Movements 0 0 0 0 Imaging Last Impressions Chest X-Ray 03/27/16 0000 Signed Impressions: Service Date/Time: Sunday, March 27, 2016 03:46 - CONCLUSION: No significant change mild parenchymal opacities of the left lung. Duy Skelton MD Liver Ultrasound 03/18/16 0000 Signed Impressions: Service Date/Time: Friday, March 18, 2016 17:01 - CONCLUSION: Ultrasound appearance of the liver and other right upper quadrant structures is within normal limits. Duy Skelton MD Head CT 03/09/16 0600 Signed Impressions: Service Date/Time: Wednesday, March 09, 2016 04:21 - CONCLUSION: 1. Mild improvement of the cerebral edema in the left cerebral hemisphere. 2. Otherwise , no other new or significant changes. Alli Jj MD Head CTA 02/16/16 0000 Signed Impressions: Service Date/Time: Tuesday, February 16, 2016 04:31 - CONCLUSION: I do not see an etiology for the patient's cerebellar hemorrhage on the right. Small supratentorial vessels in a 65-year-old. Etiology of this finding is not apparent. Trace subdural blood and subarachnoid blood persist over both convexities. Earl Gaitan MD FACR Cervical Spine CT 02/15/16 0445 Signed Impressions: Service Date/Time: January 04:57 - CONCLUSION: 1. Slight neural foramina compromise bilateral C4-5 and C5-6 in addition to bilateral lateral recess compromise at these levels and no significant thecal sac stenosis. 2. There is also slight neural foramina compromise right C3-C4. 3. Nonspecific lucencies in the spine may be osteoporotic changes, however myeloma is difficult to exclude. Ariadne Feng MD Objective Remarks GENERAL: Well-nourished, well-developed middle aged male patient in [facility]. SKIN: Warm and dry. No rash. HEAD: Normocephalic. Atraumatic. NECK: Supple. Trachea midline. CARDIOVASCULAR: Regular rate and rhythm. S1, S2 noted. No murmur appreciated. RESPIRATORY: No accessory muscle use. Clear to auscultation. Breath sounds equal bilaterally. GASTROINTESTINAL: Abdomen soft, non-tender, nondistended. Normoactive bowel sounds x4. MUSCULOSKELETAL: No obvious deformities. Extremities without clubbing, cyanosis , or edema. NEUROLOGICAL: Awake and alert, oriented to self. Speech not slurred, however often with expressive deficit, improving. Moves all extremities spontaneously, right sided upper and lower extremity 4/5 strength, left upper and lower extremity 5/5 strength. Procedures 02/14 with right frontal bur hole and left subclavian line placement 02/15 with right occipital craniectomy with SDH evacuation 02/20 tracheostomy and PEG placement 02/25 left frontal temporoparietal decompressive craniotomy 03/06 PICC 03/29 bone flap replacement Medications and IVs Current Medications Medications (Trade) Dose Ordered Sig/Rodney Route Start Time Stop Time Status Last Admin Miscellaneous Information 1 Q361D XX 02/15/16 04:00 (Tylenol) 650 mg Q4H PRN PO 03/29/16 10:30 04/25/16 06:18 (Motrin Liq) 400 mg Q6H PRN PO 04/01/16 11:15 05/18/16 12:42 (Lovenox Inj) 40 mg Q24H SQ 04/01/16 12:00 06/12/16 11:57 (Prinivil) 10 mg DAILY PO 04/26/16 09:00 06/12/16 09:35 (Colace) 100 mg BID PRN PO 04/28/16 11:00 (Milk Of Magnesia Liq) 30 ml Q6H PRN PO 04/28/16 11:45 (Lopressor) 25 mg Q12HR PO/GT 04/28/16 21:00 06/12/16 09:35 (Benadryl) 50 mg HS PRN PO 05/14/16 08:30 06/01/16 23:57 (Keppra) 1,000 mg Q12HR PO 06/10/16 21:00 06/12/16 09:35 Urinary Catheter: No Date of Insertion: Apr 10, 2016 Date of Removal: Apr 22, 2016 Date of Insertion: Mar 06, 2016 Line: PICC Side: Right Location: Antecubital A/P Problem List: (1) HTN (hypertension) Status: Chronic (2) Traumatic brain injury Status: Acute (3) Insomnia Status: Acute (4) Urinary retention Status: Resolved (5) Protein calorie malnutrition Status: Acute Assessment and Plan 65-year-old male with: 1. S/P traumatic brain injury: Initial head CT with right occipital bone fracture along with intraparenchymal hemorrhage, bilateral subdural hematomas, and subarachnoid hemorrhages. S/p right frontal bur hole, right occipital craniectomy with SDH evacuation, PEG placement (now removed), left frontal temporoparietal decompressive craniotomy, and subsequent bone flap replacement. -Continue PT/ST/OT. -On Keppra bid for seizure prophylaxis. -Neurosurgery signed off. -Weaned off methadone, discontinued as of 06/11 2. Protein Calorie malnutrition: Initially with PEG placement 02/20 then gradually increased po intake, Dietitian following, and PEG removed 05/25. -Tolerating oral intake well, continue to monitor 3. HTN: Stable. Continue on metoprolol 25 mg bid and lisinopril 10 mg daily. -Monitor and adjust BP meds as needed. 4. Urinary retention: Cuenca removed 04/22 and patient passed voiding trial. Voiding spontaneously. Resolved. 5. Insomnia: Benadryl prn. Avoid vital signs and other interruptions between midnight and 6am to assist with establishing regular sleep schedule. 6. DVT prophylaxis: Lovenox Discharge Planning Awaiting placement vs safe discharge plan. Case management assisting. Rosa Rodriguez PA-C Jun 12, 2016 14:22
[2016-06-12 16:37] VITALS: BP 104/73; PULSE 70; RESP 20; TEMP 95.5; O2SAT 99
[2016-06-12 21:30] VITALS: BP 111/70; PULSE 70; RESP 17; TEMP 97.6; O2SAT 98
[2016-06-13] MEDS: levETIRAcetam 500 MG TAB PO SCH ×2 (08:37→21:31)
[2016-06-13] MEDS: METOPROLOL TARTRATE 25 MG TAB PO/GT SCH ×2 (08:38→21:31)
[2016-06-13] MEDS: LISINOPRIL 10 MG TAB PO SCH (08:38)
--- NOTE | 2016-06-13 11:16 | HHI.PR ---
Subjective Remarks Follow up for TBI, awaiting placement vs safe discharge plan. The patient is seen sitting upright on side of bed. Has no acute complaints. Denies any pain. States his strength of RUE/RLE is improving. Eating well. Vital signs stable. Objective Vitals Vital Signs Date Time Temp Pulse Resp B/P Pulse Ox O2 Delivery O2 Flow Rate FiO2 06/12/16 21:30 97.6 70 17 111/70 98 06/12/16 16:37 95.5 70 20 104/73 99 06/12/16 12:20 96.4 60 20 112/76 98 I/O 06/12/16 06/12/16 06/12/16 06/13/16 06/13/16 06/13/16 07:00 15:00 23:00 07:00 15:00 23:00 Intake Total 650 ml 480 ml 800 ml 625 ml Balance 650 ml 480 ml 800 ml 625 ml Intake Oral 650 ml 480 ml 800 ml 625 ml # Voids 2 3 0 2 # Bowel Movements 0 0 0 0 Objective Remarks GENERAL: Well-nourished, well-developed middle aged male patient in [facility]. SKIN: Warm and dry. No rash. HEAD: Normocephalic. Atraumatic. NECK: Supple. Trachea midline. CARDIOVASCULAR: Regular rate and rhythm. S1, S2 noted. No murmur appreciated. RESPIRATORY: No accessory muscle use. Clear to auscultation. Breath sounds equal bilaterally. GASTROINTESTINAL: Abdomen soft, non-tender, nondistended. Normoactive bowel sounds x4. MUSCULOSKELETAL: No obvious deformities. Extremities without clubbing, cyanosis , or edema. NEUROLOGICAL: Awake and alert, oriented to self. Speech not slurred, however often with expressive deficit, overall improving. Moves all extremities spontaneously, right sided upper and lower extremity 4.5/5 strength, left upper and lower extremity 5/5 strength. Procedures 02/14 with right frontal bur hole and left subclavian line placement 02/15 with right occipital craniectomy with SDH evacuation 02/20 tracheostomy and PEG placement 02/25 left frontal temporoparietal decompressive craniotomy 03/06 PICC 03/29 bone flap replacement Medications and IVs Current Medications Medications (Trade) Dose Ordered Sig/Rodney Route Start Time Stop Time Status Last Admin Miscellaneous Information 1 Q361D XX 02/15/16 04:00 (Tylenol) 650 mg Q4H PRN PO 03/29/16 10:30 04/25/16 06:18 (Motrin Liq) 400 mg Q6H PRN PO 04/01/16 11:15 05/18/16 12:42 (Lovenox Inj) 40 mg Q24H SQ 04/01/16 12:00 06/12/16 11:57 (Prinivil) 10 mg DAILY PO 04/26/16 09:00 06/13/16 08:38 (Colace) 100 mg BID PRN PO 04/28/16 11:00 (Milk Of Magnesia Liq) 30 ml Q6H PRN PO 04/28/16 11:45 (Lopressor) 25 mg Q12HR PO/GT 04/28/16 21:00 06/13/16 08:38 (Benadryl) 50 mg HS PRN PO 05/14/16 08:30 06/01/16 23:57 (Keppra) 1,000 mg Q12HR PO 06/10/16 21:00 06/13/16 08:37 Urinary Catheter: No Date of Insertion: Apr 10, 2016 Date of Removal: Apr 22, 2016 Vascular Central Line Catheter: No Date of Insertion: Mar 06, 2016 Line: PICC Side: Right Location: Antecubital A/P Problem List: (1) HTN (hypertension) Status: Chronic (2) Traumatic brain injury Status: Acute (3) Insomnia Status: Acute (4) Urinary retention Status: Resolved (5) Protein calorie malnutrition Status: Acute Assessment and Plan 65-year-old male with: 1. S/P traumatic brain injury: Initial head CT with right occipital bone fracture along with intraparenchymal hemorrhage, bilateral subdural hematomas, and subarachnoid hemorrhages. S/p right frontal bur hole, right occipital craniectomy with SDH evacuation, PEG placement (now removed), left frontal temporoparietal decompressive craniotomy, and subsequent bone flap replacement. -Continue PT/ST/OT. -On Keppra bid for seizure prophylaxis. -Neurosurgery signed off. -Weaned off methadone, discontinued as of 06/11 2. Protein Calorie malnutrition: Initially with PEG placement 02/20 then gradually increased po intake, Dietitian following, and PEG removed 05/25. -Tolerating oral intake well, continue to monitor 3. HTN: Stable. Continue on metoprolol 25 mg bid and lisinopril 10 mg daily. -Monitor and adjust BP meds as needed. 4. Urinary retention: Cuenca removed 04/22 and patient passed voiding trial. Voiding spontaneously. Resolved. 5. Insomnia: Benadryl prn. Avoid vital signs and other interruptions between midnight and 6am to assist with establishing regular sleep schedule. 6. DVT prophylaxis: Lovenox Discharge Planning Awaiting placement vs safe discharge plan. Case management assisting. Rosa Rodriguez PA-C Jun 13, 2016 11:16
[2016-06-13] MEDS: ENOXAPARIN SODIUM 40 MG/0.4 ML SYRINGE SQ SCH (12:31)
[2016-06-13 12:43] VITALS: BP 115/77; PULSE 69; RESP 18; TEMP 96.9; O2SAT 98
[2016-06-13 16:21] VITALS: BP 107/62; PULSE 76; RESP 18; TEMP 96.5; O2SAT 95
[2016-06-13 20:41] VITALS: BP 121/67; PULSE 70; RESP 20; TEMP 96.6; O2SAT 97
[2016-06-14 08:00] VITALS: BP 120/79; PULSE 72; RESP 18; TEMP 97.2; O2SAT 97
[2016-06-14] MEDS: LISINOPRIL 10 MG TAB PO SCH (08:21)
[2016-06-14] MEDS: METOPROLOL TARTRATE 25 MG TAB PO/GT SCH ×2 (08:21→21:29)
[2016-06-14] MEDS: levETIRAcetam 500 MG TAB PO SCH ×2 (08:21→21:29)
[2016-06-14] MEDS: ENOXAPARIN SODIUM 40 MG/0.4 ML SYRINGE SQ SCH (11:39)
[2016-06-14 12:00] VITALS: BP 104/84; PULSE 68; RESP 18; TEMP 97; O2SAT 97
[2016-06-14 16:00] VITALS: BP 108/67; PULSE 71; RESP 18; TEMP 96; O2SAT 99
[2016-06-14 20:00] VITALS: BP 120/83; PULSE 88; RESP 18; TEMP 96.7; O2SAT 97
--- NOTE | 2016-06-14 22:46 | HHI.PR ---
Subjective Remarks patient seen today around 10 AM. Says he feels well. Sitting up in chair watching television. Denies any pain. Objective Vital Signs Date Time Temp Pulse Resp B/P Pulse Ox O2 Delivery O2 Flow Rate FiO2 06/14/16 20:00 96.7 88 18 120/83 97 06/14/16 16:00 96.0 71 18 108/67 99 06/14/16 12:00 97.0 68 18 104/84 97 06/14/16 08:00 97.2 72 18 120/79 97 I/O 06/13/16 06/13/16 06/13/16 06/14/16 06/14/16 06/14/16 07:00 15:00 23:00 07:00 15:00 23:00 Intake Total 625 ml 480 ml Balance 625 ml 480 ml Intake Oral 625 ml 480 ml # Voids 2 4 # Bowel Movements 0 0 Procedures 02/14 with right frontal bur hole and left subclavian line placement 02/15 with right occipital craniectomy with SDH evacuation 02/20 tracheostomy and PEG placement 02/25 left frontal temporoparietal decompressive craniotomy 03/06 PICC 03/29 bone flap replacement 05/24 PEG tube removed at bedside. Date of Insertion: Apr 10, 2016 Date of Removal: Apr 22, 2016 Date of Insertion: Mar 06, 2016 Line: PICC Side: Right Location: Antecubital Objective Remarks GENERAL: Sitting up in chair at bedside. Appears comfortable. Alert and oriented 3. Smiling. Exam unchanged. SKIN: Warm and dry. HEAD: Normocephalic. EYES: No scleral icterus. No injection or drainage. NECK: Supple, trachea midline. No JVD. CARDIOVASCULAR: Regular rate and rhythm without murmurs, gallops, or rubs. RESPIRATORY: Breath sounds equal bilaterally. No accessory muscle use. GASTROINTESTINAL: Abdomen soft, non-tender, nondistended. Previous PEG tube site healed well. MUSCULOSKELETAL: No cyanosis, or edema. BACK: Nontender without obvious deformity. No CVA tenderness. A/P Assessment and Plan 65-year-old male with: // S/P traumatic brain injury: -Initial head CT with right occipital bone fracture along with intraparenchymal hemorrhage, bilateral subdural hematomas, and subarachnoid hemorrhages. -S/p right frontal bur hole, right occipital craniectomy with SDH evacuation, PEG placement (and subsequent removal), left frontal temporoparietal decompressive craniotomy, and subsequent bone flap replacement. -Continue PT/ST/OT. -Continue Keppra for seizure prophylaxis. -Neurosurgery has signed off. // Protein Calorie malnutrition: -Initially required PEG tube, however this has been removed, healing well. -Tolerating by mouth nutrition. Appreciate dietary assistance. -Encourage by mouth intake. // HTN: Stable. -Continue on metoprolol 25 mg bid and lisinopril 10 mg daily. -Continue to Monitor and adjust BP meds as needed. // Urinary retention: Resolved. -Cuenca removed 04/22 and patient passed voiding trial. Now voiding spontaneously. Monitor. // Insomnia: Controlled on Benadryl prn. //Pain control. No pain. off of all opioids. // DVT prophylaxis: Continue Subcutaneous Lovenox Discharge Planning Continuing to await placement. Appreciate case management assistance. Lane Yuan MD Jun 14, 2016 22:46
[2016-06-15 08:00] VITALS: BP 112/71; PULSE 76; RESP 18; TEMP 97.8; O2SAT 98
[2016-06-15] MEDS: METOPROLOL TARTRATE 25 MG TAB PO/GT SCH ×2 (09:15→20:34)
[2016-06-15] MEDS: levETIRAcetam 500 MG TAB PO SCH ×2 (09:15→20:34)
[2016-06-15] MEDS: LISINOPRIL 10 MG TAB PO SCH (09:16)
[2016-06-15 12:00] VITALS: BP 118/76; PULSE 77; RESP 18; TEMP 96.8; O2SAT 97
[2016-06-15] MEDS: ENOXAPARIN SODIUM 40 MG/0.4 ML SYRINGE SQ SCH (13:32)
--- NOTE | 2016-06-15 14:59 | HHI.PR ---
Subjective Remarks No change in management, no overnight events. Ambulating. Denies any chest pain or shortness of breath. Objective Vitals Vital Signs Date Time Temp Pulse Resp B/P Pulse Ox O2 Delivery O2 Flow Rate FiO2 06/15/16 12:00 96.8 77 18 118/76 97 06/15/16 08:00 97.8 76 18 112/71 98 06/14/16 20:00 96.7 88 18 120/83 97 06/14/16 16:00 96.0 71 18 108/67 99 I/O 06/14/16 06/14/16 06/14/16 06/15/16 06/15/16 06/15/16 07:00 15:00 23:00 07:00 15:00 23:00 Intake Total 480 ml 650 ml 360 ml Balance 480 ml 650 ml 360 ml Intake Oral 480 ml 650 ml 360 ml # Voids 4 3 3 # Bowel Movements 0 Objective Remarks GENERAL: Not in distress CARDIOVASCULAR: Regular rate and rhythm. No murmur gallop or rub. RESPIRATORY: No accessory muscle use. Clear to auscultation. GASTROINTESTINAL: Abdomen soft, non-tender, nondistended. MUSCULOSKELETAL: No obvious deformities. NEUROLOGICAL: Alert, awake, oriented 3, no focal deficits. Procedures 02/14 with right frontal bur hole and left subclavian line placement 02/15 with right occipital craniectomy with SDH evacuation 02/20 tracheostomy and PEG placement 02/25 left frontal temporoparietal decompressive craniotomy 03/06 PICC 03/29 bone flap replacement Date of Insertion: Apr 10, 2016 Date of Removal: Apr 22, 2016 Date of Insertion: Mar 06, 2016 Line: PICC Side: Right Location: Antecubital A/P Problem List: (1) HTN (hypertension) Status: Chronic (2) Traumatic brain injury Status: Acute (3) Insomnia Status: Acute (4) Urinary retention Status: Resolved (5) Protein calorie malnutrition Status: Acute Assessment and Plan 65-year-old male with: S/P traumatic brain injury: -Initial head CT with right occipital bone fracture along with intraparenchymal hemorrhage, bilateral subdural hematomas, and subarachnoid hemorrhages. -S/p right frontal bur hole, right occipital craniectomy with SDH evacuation, PEG placement (and subsequent removal), left frontal temporoparietal decompressive craniotomy, and subsequent bone flap replacement. -Continue Keppra for seizure prophylaxis. Neurosurgery has signed off. Protein Calorie malnutrition: -Initially required PEG tube, however this has been removed, healing well. Tolerating diet HTN: Stable. -Continue on metoprolol 25 mg bid and lisinopril 10 mg daily. Urinary retention: Resolved. -Cuenca removed 04/22 and patient passed voiding trial. Now voiding spontaneously. Monitor. Insomnia: Controlled on Benadryl prn. Pain control. No pain. off of all opioids. DVT prophylaxis: Continue Subcutaneous Lovenox Discharge Planning Awaiting placement Ryann Hansen MD Jun 15, 2016 14:59
[2016-06-15 16:00] VITALS: BP 121/76; PULSE 86; RESP 17; TEMP 97.8; O2SAT 96
[2016-06-15 20:00] VITALS: BP 115/76; PULSE 82; RESP 18; TEMP 97.4; O2SAT 99
[2016-06-16 00:07] VITALS: BP 115/76; PULSE 82; RESP 18; TEMP 97.4; O2SAT 99
[2016-06-16] MEDS: levETIRAcetam 500 MG TAB PO SCH ×2 (08:38→20:41)
[2016-06-16 09:03] VITALS: BP 110/80; PULSE 97; RESP 18; TEMP 97.9; O2SAT 97
--- NOTE | 2016-06-16 11:04 | HHI.PR ---
Subjective Remarks Follow-up for TBI. The patient has no acute complaints today except that he is cold. He states occasionally in the mornings he gets a headache, but denies any pain currently. He states he has been eating and drinking well. No abdominal pain. He states that he continues to ambulate intermittently. Discussed with RN, no issues. Objective Vitals Vital Signs Date Time Temp Pulse Resp B/P Pulse Ox O2 Delivery O2 Flow Rate FiO2 06/16/16 09:03 97.9 97 18 110/80 97 06/15/16 20:00 97.4 82 18 115/76 99 06/15/16 16:00 97.8 86 17 121/76 96 06/15/16 12:00 96.8 77 18 118/76 97 I/O 06/15/16 06/15/16 06/15/16 06/16/16 06/16/16 06/16/16 07:00 15:00 23:00 07:00 15:00 23:00 Intake Total 360 ml 480 ml 800 ml 360 ml Output Total 2 ml Balance 360 ml 478 ml 800 ml 360 ml Intake Oral 360 ml 480 ml 800 ml 360 ml Output Urine Total 2 ml # Voids 3 3 3 # Bowel Movements 1 Objective Remarks GENERAL: Well-developed well-nourished. In no acute distress. SKIN: Warm and dry. HEENT: Normocephalic. Pupils equal and round. CARDIOVASCULAR: Regular rate and rhythm. No murmur appreciated. RESPIRATORY: No accessory muscle use. Clear to auscultation. Breath sounds equal bilaterally. GASTROINTESTINAL: Abdomen soft, non-tender, nondistended. Bowel sounds x4. MUSCULOSKELETAL: No obvious deformities. NEUROLOGICAL: Awake and alert. Moves upper and lower extremities spontaneously. Normal speech, occasionally with speaking the wrong word. PSYCHIATRIC: Appropriate mood and affect; insight and judgment fair to normal. Procedures 02/14 with right frontal bur hole and left subclavian line placement 02/15 with right occipital craniectomy with SDH evacuation 02/20 tracheostomy and PEG placement 02/25 left frontal temporoparietal decompressive craniotomy 03/06 PICC 03/29 bone flap replacement Date of Insertion: Apr 10, 2016 Date of Removal: Apr 22, 2016 Date of Insertion: Mar 06, 2016 Line: PICC Side: Right Location: Antecubital A/P Problem List: (1) HTN (hypertension) Status: Chronic (2) Traumatic brain injury Status: Acute (3) Insomnia Status: Acute (4) Urinary retention Status: Resolved (5) Protein calorie malnutrition Status: Acute Assessment and Plan 65-year-old male with: 1. S/P traumatic brain injury: Initial head CT with right occipital bone fracture along with intraparenchymal hemorrhage, bilateral subdural hematomas, and subarachnoid hemorrhages. Patient is status post right frontal bur hole, right occipital craniectomy with SDH evacuation, PEG placement, left frontal temporoparietal decompressive craniotomy, and subsequent bone flap replacement. Neurosurgery has signed off. - Continue PT/speech therapy/occupational therapy - Keppra bid for seizure prophylaxis- 2. Protein Calorie malnutrition: Initially requiring PEG tube, however patient had been eating well and this was removed 05/25. Tolerating diet. 3. HTN: Chronic, stable. Continue on metoprolol 25 mg twice daily and lisinopril 10 mg once daily. Monitor and adjust BP meds as needed. 4. Urinary retention: Cuenca removed 04/22 and patient passed voiding trial. Now voiding spontaneously. Resolved. Monitor. 5. DVT prophylaxis: Lovenox subcutaneous. Discharge Planning Awaiting placement. Ernesto Huntley Jun 16, 2016 11:03
[2016-06-16 12:52] VITALS: BP 132/99; PULSE 130; RESP 17; TEMP 97.4; O2SAT 99
[2016-06-16] MEDS: METOPROLOL TARTRATE 25 MG TAB PO/GT SCH ×2 (15:11→20:41)
[2016-06-16] MEDS: ENOXAPARIN SODIUM 40 MG/0.4 ML SYRINGE SQ SCH (15:11)
[2016-06-16 17:46] VITALS: BP 134/97; PULSE 73; RESP 16; TEMP 96.5; O2SAT 98
[2016-06-16 20:00] VITALS: BP 133/70; PULSE 78; RESP 18; TEMP 97.1; O2SAT 98
[2016-06-17 08:07] VITALS: BP 138/88; PULSE 80; RESP 18; TEMP 96.1; O2SAT 97
[2016-06-17] MEDS: levETIRAcetam 500 MG TAB PO SCH ×2 (09:30→21:09)
[2016-06-17] MEDS: LISINOPRIL 10 MG TAB PO SCH ×2 (09:30→09:32)
[2016-06-17] MEDS: METOPROLOL TARTRATE 25 MG TAB PO/GT SCH ×2 (09:30→21:09)
[2016-06-17 12:08] VITALS: BP 119/78; PULSE 78; RESP 16; TEMP 96.3; O2SAT 97
[2016-06-17] MEDS: ENOXAPARIN SODIUM 40 MG/0.4 ML SYRINGE SQ SCH (12:59)
--- NOTE | 2016-06-17 14:28 | HHI.PR ---
Subjective Remarks Follow up for TBI, awaiting placement. The patient is seen sitting upright in bedside chair today, watching tv. He has no medical complaints. He finished his lunch tray at bedside, ate everything except the Ensure shake and bun from his hamburger. He states he never drinks his Ensure shakes, will discontinue. Vital signs stable. Today chavez 4months in the hospital, patient states he is getting anxious to get out of here. Awaiting safe discharge plan arrangements. Objective Vitals Vital Signs Date Time Temp Pulse Resp B/P Pulse Ox O2 Delivery O2 Flow Rate FiO2 06/17/16 12:08 96.3 78 16 119/78 97 06/17/16 08:07 96.1 80 18 138/88 97 06/16/16 20:00 97.1 78 18 133/70 98 06/16/16 17:46 96.5 73 16 134/97 98 I/O 06/16/16 06/16/16 06/16/16 06/17/16 06/17/16 06/17/16 07:00 15:00 23:00 07:00 15:00 23:00 Intake Total 360 ml 600 ml Balance 360 ml 600 ml Intake Oral 360 ml 600 ml # Voids 3 7 # Bowel Movements 6 Objective Remarks GENERAL: Well-nourished, well-developed middle aged male patient in [facility]. SKIN: Warm and dry. No rash. HEAD: Normocephalic. Atraumatic. NECK: Supple. Trachea midline. CARDIOVASCULAR: Regular rate and rhythm. S1, S2 noted. No murmur appreciated. RESPIRATORY: No accessory muscle use. Clear to auscultation. Breath sounds equal bilaterally. GASTROINTESTINAL: Abdomen soft, non-tender, nondistended. Normoactive bowel sounds x4. MUSCULOSKELETAL: No obvious deformities. Extremities without clubbing, cyanosis , or edema. NEUROLOGICAL: Awake and alert, oriented to self. Speech not slurred, however often with expressive deficit, overall improving. Moves all extremities spontaneously, right sided upper and lower extremity 4.5/5 strength, left upper and lower extremity 5/5 strength. Procedures 02/14 with right frontal bur hole and left subclavian line placement 02/15 with right occipital craniectomy with SDH evacuation 02/20 tracheostomy and PEG placement 02/25 left frontal temporoparietal decompressive craniotomy 03/06 PICC 03/29 bone flap replacement Medications and IVs Current Medications Medications (Trade) Dose Ordered Sig/Rodney Route Start Time Stop Time Status Last Admin Miscellaneous Information 1 Q361D XX 02/15/16 04:00 (Tylenol) 650 mg Q4H PRN PO 03/29/16 10:30 04/25/16 06:18 (Motrin Liq) 400 mg Q6H PRN PO 04/01/16 11:15 05/18/16 12:42 (Lovenox Inj) 40 mg Q24H SQ 04/01/16 12:00 06/17/16 12:59 (Prinivil) 10 mg DAILY PO 04/26/16 09:00 06/17/16 09:32 (Colace) 100 mg BID PRN PO 04/28/16 11:00 (Milk Of Magnesia Liq) 30 ml Q6H PRN PO 04/28/16 11:45 (Lopressor) 25 mg Q12HR PO/GT 04/28/16 21:00 06/17/16 09:30 (Benadryl) 50 mg HS PRN PO 05/14/16 08:30 06/01/16 23:57 (Keppra) 1,000 mg Q12HR PO 06/10/16 21:00 06/17/16 09:30 Urinary Catheter: No Date of Insertion: Apr 10, 2016 Date of Removal: Apr 22, 2016 Vascular Central Line Catheter: No Date of Insertion: Mar 06, 2016 Line: PICC Side: Right Location: Antecubital A/P Problem List: (1) HTN (hypertension) Status: Chronic (2) Traumatic brain injury Status: Acute (3) Insomnia Status: Acute (4) Urinary retention Status: Resolved (5) Protein calorie malnutrition Status: Acute Assessment and Plan 65-year-old male with: 1. S/P traumatic brain injury: Initial head CT with right occipital bone fracture along with intraparenchymal hemorrhage, bilateral subdural hematomas, and subarachnoid hemorrhages. S/p right frontal bur hole, right occipital craniectomy with SDH evacuation, PEG placement (now removed), left frontal temporoparietal decompressive craniotomy, and subsequent bone flap replacement. Neurosurgery signed off. -Continue PT/ST/OT. -On Keppra bid for seizure prophylaxis. -Weaned off methadone, discontinued as of 06/11 2. Protein Calorie malnutrition: Initially with PEG placement 02/20 then gradually increased po intake, Dietitian following, and PEG removed 05/25. -Tolerating oral intake well, continue to monitor 3. HTN: Stable. Continue on metoprolol 25 mg bid and lisinopril 10 mg daily. -Monitor and adjust BP meds as needed. 4. Urinary retention: Cuenca removed 04/22 and patient passed voiding trial. Voiding spontaneously. Resolved. 5. Insomnia: Benadryl prn. Avoid vital signs and other interruptions between midnight and 6am to assist with establishing regular sleep schedule. 6. DVT prophylaxis: Lovenox Discharge Planning Awaiting placement vs safe discharge plan. Case management assisting. Rosa Rodriguez PA-C Jun 17, 2016 14:28
[2016-06-17 16:09] VITALS: BP 114/79; PULSE 83; RESP 16; TEMP 96.5; O2SAT 99
[2016-06-17 20:28] VITALS: BP 141/80; PULSE 71; RESP 20; TEMP 96.4; O2SAT 95
[2016-06-18 08:08] VITALS: BP 108/77; PULSE 88; RESP 17; TEMP 95.8; O2SAT 96
[2016-06-18] MEDS: LISINOPRIL 10 MG TAB PO SCH (09:53)
[2016-06-18] MEDS: levETIRAcetam 500 MG TAB PO SCH ×2 (09:53→20:59)
[2016-06-18] MEDS: METOPROLOL TARTRATE 25 MG TAB PO/GT SCH ×2 (09:53→20:57)
[2016-06-18 12:22] VITALS: BP 128/83; PULSE 98; RESP 16; TEMP 96.4; O2SAT 99
[2016-06-18] MEDS: ENOXAPARIN SODIUM 40 MG/0.4 ML SYRINGE SQ SCH (12:31)
--- NOTE | 2016-06-18 14:16 | HHI.PR ---
Subjective Remarks Follow up for TBI, awaiting placement vs safe discharge plan arrangements. The patient is seen sitting upright in bedside recliner. He has no medical complaints today. Tolerating po well. Vital signs stable. Objective Vitals Vital Signs Date Time Temp Pulse Resp B/P Pulse Ox O2 Delivery O2 Flow Rate FiO2 06/18/16 12:22 96.4 98 16 128/83 99 06/18/16 08:08 95.8 88 17 108/77 96 06/17/16 20:28 96.4 71 20 141/80 95 06/17/16 16:09 96.5 83 16 114/79 99 I/O 06/17/16 06/17/16 06/17/16 06/18/16 06/18/16 06/18/16 07:00 15:00 23:00 07:00 15:00 23:00 Intake Total 600 ml 240 ml 240 ml Balance 600 ml 240 ml 240 ml Intake Oral 600 ml 240 ml 240 ml # Voids 3 1 1 # Bowel Movements 1 0 0 Objective Remarks GENERAL: Well-nourished, well-developed middle aged male patient in [facility]. SKIN: Warm and dry. No rash. HEAD: Normocephalic. Atraumatic. NECK: Supple. Trachea midline. CARDIOVASCULAR: Regular rate and rhythm. S1, S2 noted. No murmur appreciated. RESPIRATORY: No accessory muscle use. Clear to auscultation. Breath sounds equal bilaterally. GASTROINTESTINAL: Abdomen soft, non-tender, nondistended. Normoactive bowel sounds x4. MUSCULOSKELETAL: No obvious deformities. Extremities without clubbing, cyanosis , or edema. NEUROLOGICAL: Awake and alert, oriented to self. Speech not slurred, however often with expressive deficit, overall improving. Moves all extremities spontaneously, right sided upper and lower extremity 4.5/5 strength, left upper and lower extremity 5/5 strength. Procedures 02/14 with right frontal bur hole and left subclavian line placement 02/15 with right occipital craniectomy with SDH evacuation 02/20 tracheostomy and PEG placement 02/25 left frontal temporoparietal decompressive craniotomy 03/06 PICC 03/29 bone flap replacement Medications and IVs Current Medications Medications (Trade) Dose Ordered Sig/Rodney Route Start Time Stop Time Status Last Admin Miscellaneous Information 1 Q361D XX 02/15/16 04:00 (Tylenol) 650 mg Q4H PRN PO 03/29/16 10:30 04/25/16 06:18 (Motrin Liq) 400 mg Q6H PRN PO 04/01/16 11:15 05/18/16 12:42 (Lovenox Inj) 40 mg Q24H SQ 04/01/16 12:00 06/18/16 12:31 (Prinivil) 10 mg DAILY PO 04/26/16 09:00 06/18/16 09:53 (Colace) 100 mg BID PRN PO 04/28/16 11:00 (Milk Of Magnesia Liq) 30 ml Q6H PRN PO 04/28/16 11:45 (Lopressor) 25 mg Q12HR PO/GT 04/28/16 21:00 06/18/16 09:53 (Benadryl) 50 mg HS PRN PO 05/14/16 08:30 06/01/16 23:57 (Keppra) 1,000 mg Q12HR PO 06/10/16 21:00 06/18/16 09:53 Urinary Catheter: No Date of Insertion: Apr 10, 2016 Date of Removal: Apr 22, 2016 Vascular Central Line Catheter: No Date of Insertion: Mar 06, 2016 Line: PICC Side: Right Location: Antecubital A/P Problem List: (1) HTN (hypertension) Status: Chronic (2) Traumatic brain injury Status: Acute (3) Insomnia Status: Acute (4) Urinary retention Status: Resolved (5) Protein calorie malnutrition Status: Acute Assessment and Plan 65-year-old male with: 1. S/P traumatic brain injury: Initial head CT with right occipital bone fracture along with intraparenchymal hemorrhage, bilateral subdural hematomas, and subarachnoid hemorrhages. S/p right frontal bur hole, right occipital craniectomy with SDH evacuation, PEG placement (now removed), left frontal temporoparietal decompressive craniotomy, and subsequent bone flap replacement. Neurosurgery signed off. -Continue PT/ST/OT. -On Keppra bid for seizure prophylaxis. -Weaned off methadone, discontinued as of 06/11 2. Protein Calorie malnutrition: Initially with PEG placement 02/20 then gradually increased po intake, Dietitian following, and PEG removed 05/25. -Tolerating oral intake well, continue to monitor 3. HTN: Stable. Continue on metoprolol 25 mg bid and lisinopril 10 mg daily. -Monitor and adjust BP meds as needed. 4. Urinary retention: Cuenca removed 04/22 and patient passed voiding trial. Voiding spontaneously. Resolved. 5. Insomnia: Benadryl prn. Avoid vital signs and other interruptions between midnight and 6am to assist with establishing regular sleep schedule. 6. DVT prophylaxis: Lovenox Discharge Planning Awaiting placement vs safe discharge plan. Case management assisting. Rosa Rodriguez PA-C Jun 18, 2016 14:16
[2016-06-18 16:06] VITALS: BP 111/71; PULSE 70; RESP 15; TEMP 95.9; O2SAT 98
[2016-06-18 20:50] VITALS: BP 108/71; PULSE 79; RESP 18; TEMP 96.8; O2SAT 99
[2016-06-19 08:00] VITALS: BP 120/80; PULSE 90; RESP 20; TEMP 97.5; O2SAT 96
[2016-06-19 08:06] VITALS: O2SAT 96
[2016-06-19] MEDS: METOPROLOL TARTRATE 25 MG TAB PO/GT SCH ×2 (08:08→21:32)
[2016-06-19] MEDS: LISINOPRIL 10 MG TAB PO SCH (08:08)
[2016-06-19] MEDS: levETIRAcetam 500 MG TAB PO SCH ×2 (08:09→21:32)
--- NOTE | 2016-06-19 11:11 | HHI.PR ---
Subjective Remarks Follow-up for TBI, awaiting placement. The patient is seen walking with PT using a 4 prong cane. He has no acute complaints today. He states occasionally he wakes up a little bit of pain, but it resolved spontaneously by breakfast. Objective Vitals Vital Signs Date Time Temp Pulse Resp B/P Pulse Ox O2 Delivery O2 Flow Rate FiO2 06/19/16 08:06 96 06/19/16 08:00 97.5 90 20 120/80 96 06/18/16 20:50 96.8 79 18 108/71 99 06/18/16 16:06 95.9 70 15 111/71 98 06/18/16 12:22 96.4 98 16 128/83 99 I/O 06/18/16 06/18/16 06/18/16 06/19/16 06/19/16 06/19/16 07:00 15:00 23:00 07:00 15:00 23:00 Intake Total 240 ml 960 ml 240 ml Balance 240 ml 960 ml 240 ml Intake Oral 240 ml 960 ml 240 ml # Voids 1 3 0 # Bowel Movements 0 1 0 Objective Remarks GENERAL: Well-developed well-nourished. In no acute distress. SKIN: Warm and dry. HEENT: Normocephalic. Pupils equal and round. CARDIOVASCULAR: Regular rate and rhythm. No murmur appreciated. RESPIRATORY: No accessory muscle use. Clear to auscultation. Breath sounds equal bilaterally. MUSCULOSKELETAL: No obvious deformities. Extremities without clubbing, cyanosis , or edema. NEUROLOGICAL: Awake and alert. Moves upper and lower extremities spontaneously. Speech not slurred, however often with expressive deficit, overall improving. Gait steady. PSYCHIATRIC: Appropriate mood and affect; insight and judgment fair to normal. Procedures 02/14 with right frontal bur hole and left subclavian line placement 02/15 with right occipital craniectomy with SDH evacuation 02/20 tracheostomy and PEG placement 02/25 left frontal temporoparietal decompressive craniotomy 03/06 PICC 03/29 bone flap replacement Date of Insertion: Apr 10, 2016 Date of Removal: Apr 22, 2016 Date of Insertion: Mar 06, 2016 Line: PICC Side: Right Location: Antecubital A/P Problem List: (1) HTN (hypertension) Status: Chronic (2) Traumatic brain injury Status: Acute (3) Insomnia Status: Acute (4) Urinary retention Status: Resolved (5) Protein calorie malnutrition Status: Acute Assessment and Plan 65-year-old male with: 1. S/P traumatic brain injury: Initial head CT with right occipital bone fracture along with intraparenchymal hemorrhage, bilateral subdural hematomas, and subarachnoid hemorrhages. Patient is status post right frontal bur hole, right occipital craniectomy with SDH evacuation, PEG placement, left frontal temporoparietal decompressive craniotomy, and subsequent bone flap replacement. Neurosurgery has signed off. - Continue PT/speech therapy/occupational therapy - Keppra bid for seizure prophylaxis- 2. Protein Calorie malnutrition: Initially requiring PEG tube, however patient had been eating well and this was removed 05/25. Tolerating diet. 3. HTN: Chronic, stable. Continue on metoprolol 25 mg twice daily and lisinopril 10 mg once daily. Monitor and adjust BP meds as needed. 4. Urinary retention: Cuenca removed 04/22 and patient passed voiding trial. Now voiding spontaneously. Resolved. Monitor. 5. DVT prophylaxis: Lovenox subcutaneous. Discharge Planning Awaiting placement vs a safe discharge plan. Case management consulted and assisting. Problem Qualifiers (1) HTN (hypertension): Qualified Code: I10 - Essential hypertension Ernesto Huntley Jun 19, 2016 11:11
[2016-06-19] MEDS: ENOXAPARIN SODIUM 40 MG/0.4 ML SYRINGE SQ SCH (11:42)
[2016-06-19 12:00] VITALS: BP 130/57; PULSE 92; RESP 20; TEMP 95.7; O2SAT 99
[2016-06-19 16:00] VITALS: BP 106/73; PULSE 91; RESP 20; TEMP 96; O2SAT 98
[2016-06-19 20:00] VITALS: BP 115/60; PULSE 90; RESP 20; TEMP 96.1; O2SAT 97
[2016-06-20 08:00] VITALS: BP 123/71; PULSE 81; RESP 18; TEMP 97; O2SAT 99
[2016-06-20] MEDS: METOPROLOL TARTRATE 25 MG TAB PO/GT SCH ×2 (08:09→21:06)
[2016-06-20] MEDS: levETIRAcetam 500 MG TAB PO SCH ×2 (08:09→21:06)
[2016-06-20] MEDS: LISINOPRIL 10 MG TAB PO SCH (08:09)
[2016-06-20 11:52] VITALS: BP 98/66; PULSE 77; RESP 17; O2SAT 99
[2016-06-20] MEDS: ENOXAPARIN SODIUM 40 MG/0.4 ML SYRINGE SQ SCH (11:54)
--- NOTE | 2016-06-20 12:39 | HHI.PR ---
Subjective Remarks Follow-up for TBI. The patient has no acute complaints or concerns today. No change. Objective Vitals Vital Signs Date Time Temp Pulse Resp B/P Pulse Ox O2 Delivery O2 Flow Rate FiO2 06/20/16 11:52 77 17 98/66 99 06/20/16 08:00 97.0 81 18 123/71 99 06/20/16 07:19 Room Air 06/19/16 20:00 96.1 90 20 115/60 97 06/19/16 20:00 Room Air 06/19/16 16:00 96.0 91 20 106/73 98 I/O 06/19/16 06/19/16 06/19/16 06/20/16 06/20/16 06/20/16 07:00 15:00 23:00 07:00 15:00 23:00 Intake Total 240 ml 880 ml 120 ml Balance 240 ml 880 ml 120 ml Intake Oral 240 ml 880 ml 120 ml # Voids 0 4 1 # Bowel Movements 0 1 0 Objective Remarks GENERAL: Well-developed well-nourished. In no acute distress. SKIN: Warm and dry. HEENT: Normocephalic. Pupils equal and round. CARDIOVASCULAR: Regular rate and rhythm. No murmur appreciated. RESPIRATORY: No accessory muscle use. Clear to auscultation. Breath sounds equal bilaterally. MUSCULOSKELETAL: No obvious deformities. Extremities without clubbing, cyanosis , or edema. NEUROLOGICAL: Awake and alert. Moves upper and lower extremities spontaneously. Speech not slurred, however often with expressive deficit, overall improving. PSYCHIATRIC: Appropriate mood and affect; insight and judgment fair to normal. Procedures 02/14 with right frontal bur hole and left subclavian line placement 02/15 with right occipital craniectomy with SDH evacuation 02/20 tracheostomy and PEG placement 02/25 left frontal temporoparietal decompressive craniotomy 03/06 PICC 03/29 bone flap replacement Date of Insertion: Apr 10, 2016 Date of Removal: Apr 22, 2016 Date of Insertion: Mar 06, 2016 Line: PICC Side: Right Location: Antecubital A/P Problem List: (1) HTN (hypertension) Status: Chronic (2) Traumatic brain injury Status: Acute (3) Insomnia Status: Acute (4) Urinary retention Status: Resolved (5) Protein calorie malnutrition Status: Acute Assessment and Plan 65-year-old male with: 1. S/P traumatic brain injury: Initial head CT with right occipital bone fracture along with intraparenchymal hemorrhage, bilateral subdural hematomas, and subarachnoid hemorrhages. Patient is status post right frontal bur hole, right occipital craniectomy with SDH evacuation, PEG placement, left frontal temporoparietal decompressive craniotomy, and subsequent bone flap replacement. Neurosurgery has signed off. - Continue PT/speech therapy/occupational therapy - Keppra bid for seizure prophylaxis 2. Protein Calorie malnutrition: Initially requiring PEG tube, however patient had been eating well and this was removed 05/25. Tolerating diet. 3. HTN: Chronic, stable. Continue on metoprolol 25 mg twice daily and lisinopril 10 mg once daily. Monitor and adjust BP meds as needed. 4. Urinary retention: Cuenca removed 04/22 and patient passed voiding trial. Now voiding spontaneously. Resolved. Monitor. 5. DVT prophylaxis: Lovenox subcutaneous. Discharge Planning Awaiting placement vs a safe discharge plan when arranged. Discussed with case management. Problem Qualifiers (1) HTN (hypertension): Qualified Code: I10 - Essential hypertension Ernesto Huntley Jun 20, 2016 12:39
[2016-06-20 16:00] VITALS: BP 98/72; PULSE 84; RESP 18; TEMP 97.2; O2SAT 94
[2016-06-20 21:01] VITALS: BP 148/66; PULSE 81; RESP 18; TEMP 97.5; O2SAT 98
[2016-06-20] MEDS: diphenhydrAMINE HCL 50 MG CAP PO PRN (21:06)
[2016-06-20] MEDS: IBUPROFEN SUSP 100 MG/5 ML UDC PO PRN (21:07)
[2016-06-21] MEDS: levETIRAcetam 500 MG TAB PO SCH ×2 (07:58→21:08)
[2016-06-21] MEDS: LISINOPRIL 10 MG TAB PO SCH (07:58)
[2016-06-21 08:00] VITALS: BP 117/79; PULSE 73; RESP 16; TEMP 96.6; O2SAT 96
[2016-06-21] MEDS: METOPROLOL TARTRATE 25 MG TAB PO/GT SCH ×2 (08:02→21:08)
[2016-06-21] MEDS: ENOXAPARIN SODIUM 40 MG/0.4 ML SYRINGE SQ SCH (11:54)
[2016-06-21 12:00] VITALS: BP 120/72; PULSE 74; RESP 16; TEMP 97.8; O2SAT 98
[2016-06-21 16:00] VITALS: BP 118/63; PULSE 71; RESP 18; TEMP 98.1; O2SAT 100
--- NOTE | 2016-06-21 16:16 | HHI.PR ---
Subjective Remarks Follow up for TBI. The patient is seen in bedside chair. He has no medical complaints today. Vital signs stable. Objective Vitals Vital Signs Date Time Temp Pulse Resp B/P Pulse Ox O2 Delivery O2 Flow Rate FiO2 06/21/16 12:00 97.8 74 16 120/72 98 06/21/16 08:00 96.6 73 16 117/79 96 06/20/16 21:01 97.5 81 18 148/66 98 I/O 06/20/16 06/20/16 06/20/16 06/21/16 06/21/16 06/21/16 07:00 15:00 23:00 07:00 15:00 23:00 Intake Total 120 ml 480 ml 0 ml Balance 120 ml 480 ml 0 ml Intake Oral 120 ml 480 ml IV Total 0 ml # Voids 1 3 # Bowel Movements 0 Objective Remarks GENERAL: Well-nourished, well-developed middle aged male patient in [facility]. SKIN: Warm and dry. No rash. HEAD: Normocephalic. Atraumatic. NECK: Supple. Trachea midline. CARDIOVASCULAR: Regular rate and rhythm. S1, S2 noted. No murmur appreciated. RESPIRATORY: No accessory muscle use. Clear to auscultation. Breath sounds equal bilaterally. GASTROINTESTINAL: Abdomen soft, non-tender, nondistended. Normoactive bowel sounds x4. MUSCULOSKELETAL: No obvious deformities. Extremities without clubbing, cyanosis , or edema. NEUROLOGICAL: Awake and alert, oriented to self. Speech not slurred, however often with expressive deficit, overall improving. Moves all extremities spontaneously, right sided upper and lower extremity 4.5/5 strength, left upper and lower extremity 5/5 strength. Procedures 02/14 with right frontal bur hole and left subclavian line placement 02/15 with right occipital craniectomy with SDH evacuation 02/20 tracheostomy and PEG placement 02/25 left frontal temporoparietal decompressive craniotomy 03/06 PICC 03/29 bone flap replacement Medications and IVs Current Medications Medications (Trade) Dose Ordered Sig/Rodney Route Start Time Stop Time Status Last Admin Miscellaneous Information 1 Q361D XX 02/15/16 04:00 (Tylenol) 650 mg Q4H PRN PO 03/29/16 10:30 04/25/16 06:18 (Motrin Liq) 400 mg Q6H PRN PO 04/01/16 11:15 06/20/16 21:07 (Lovenox Inj) 40 mg Q24H SQ 04/01/16 12:00 06/21/16 11:54 (Prinivil) 10 mg DAILY PO 04/26/16 09:00 06/21/16 07:58 (Colace) 100 mg BID PRN PO 04/28/16 11:00 (Milk Of Magnesia Liq) 30 ml Q6H PRN PO 04/28/16 11:45 (Lopressor) 25 mg Q12HR PO/GT 04/28/16 21:00 06/21/16 08:02 (Benadryl) 50 mg HS PRN PO 05/14/16 08:30 06/20/16 21:06 (Keppra) 1,000 mg Q12HR PO 06/10/16 21:00 06/21/16 07:58 Urinary Catheter: No Date of Insertion: Apr 10, 2016 Date of Removal: Apr 22, 2016 Vascular Central Line Catheter: No Date of Insertion: Mar 06, 2016 Line: PICC Side: Right Location: Antecubital A/P Problem List: (1) HTN (hypertension) ICD Code: I10 Status: Chronic (2) Traumatic brain injury ICD Code: S06.9X9A Status: Acute (3) Insomnia ICD Code: G47.00 Status: Acute (4) Urinary retention ICD Code: R33.9 Status: Resolved (5) Protein calorie malnutrition ICD Code: E46 Status: Acute Assessment and Plan 65-year-old male with: 1. S/P traumatic brain injury: Initial head CT with right occipital bone fracture along with intraparenchymal hemorrhage, bilateral subdural hematomas, and subarachnoid hemorrhages. S/p right frontal bur hole, right occipital craniectomy with SDH evacuation, PEG placement (now removed), left frontal temporoparietal decompressive craniotomy, and subsequent bone flap replacement. Neurosurgery signed off. -Continue PT/ST/OT. -On Keppra bid for seizure prophylaxis. -Weaned off methadone, discontinued as of 06/11 2. Protein Calorie malnutrition: Initially with PEG placement 02/20 then gradually increased po intake, Dietitian following, and PEG removed 05/25. -Tolerating oral intake well, continue to monitor 3. HTN: Stable. Continue on metoprolol 25 mg bid and lisinopril 10 mg daily. -Monitor and adjust BP meds as needed. 4. Urinary retention: Cuenca removed 04/22 and patient passed voiding trial. Voiding spontaneously. Resolved. 5. Insomnia: Benadryl prn. Avoid vital signs and other interruptions between midnight and 6am to assist with establishing regular sleep schedule. 6. DVT prophylaxis: Lovenox Discharge Planning Awaiting placement vs safe discharge plan. Case management assisting. Problem Qualifiers (1) HTN (hypertension): Qualified Code: I10 - Essential hypertension Rosa Rodriguez PA-C Jun 21, 2016 16:16
[2016-06-21 20:57] VITALS: BP 108/70; PULSE 75; RESP 19; TEMP 96.2; O2SAT 98
[2016-06-22] MEDS: diphenhydrAMINE HCL 50 MG CAP PO PRN (02:43)
[2016-06-22 08:00] VITALS: BP 126/75; PULSE 86; RESP 20; TEMP 96.9; O2SAT 96
[2016-06-22] MEDS: METOPROLOL TARTRATE 25 MG TAB PO/GT SCH ×2 (09:06→21:44)
[2016-06-22] MEDS: LISINOPRIL 10 MG TAB PO SCH (09:06)
[2016-06-22] MEDS: ENOXAPARIN SODIUM 40 MG/0.4 ML SYRINGE SQ SCH (09:07)
[2016-06-22] MEDS: levETIRAcetam 500 MG TAB PO SCH ×2 (09:07→21:44)
[2016-06-22 12:00] VITALS: BP 118/76; PULSE 76; RESP 18; TEMP 97.8; O2SAT 98
--- NOTE | 2016-06-22 13:16 | HHI.PR ---
Subjective Remarks Follow up for TBI. The patient seen sitting upright in bed, watching [place] on tv. He has no complaints again today. Vital signs continue to be stable. He is eating well. Denies diarrhea/constipation. Objective Vitals Vital Signs Date Time Temp Pulse Resp B/P Pulse Ox O2 Delivery O2 Flow Rate FiO2 06/22/16 12:00 97.8 76 18 118/76 98 06/22/16 08:00 96.9 86 20 126/75 96 06/21/16 20:57 96.2 75 19 108/70 98 06/21/16 16:00 98.1 71 18 118/63 100 I/O 06/21/16 06/21/16 06/21/16 06/22/16 06/22/16 06/22/16 07:00 15:00 23:00 07:00 15:00 23:00 Intake Total 0 ml 480 ml Balance 0 ml 480 ml Intake Oral 480 ml IV Total 0 ml # Voids 3 1 1 # Bowel Movements 1 Objective Remarks GENERAL: Well-nourished, well-developed middle aged male patient in [facility]. SKIN: Warm and dry. No rash. HEAD: Normocephalic. Atraumatic. NECK: Supple. Trachea midline. CARDIOVASCULAR: Regular rate and rhythm. S1, S2 noted. No murmur appreciated. RESPIRATORY: No accessory muscle use. Clear to auscultation. Breath sounds equal bilaterally. GASTROINTESTINAL: Abdomen soft, non-tender, nondistended. Normoactive bowel sounds x4. MUSCULOSKELETAL: No obvious deformities. Extremities without clubbing, cyanosis , or edema. NEUROLOGICAL: Awake and alert, oriented to self. Speech not slurred, however often with expressive deficit, overall improving. Moves all extremities spontaneously, right sided upper and lower extremity 4.5/5 strength, left upper and lower extremity 5/5 strength. Procedures 02/14 with right frontal bur hole and left subclavian line placement 02/15 with right occipital craniectomy with SDH evacuation 02/20 tracheostomy and PEG placement 02/25 left frontal temporoparietal decompressive craniotomy 03/06 PICC 03/29 bone flap replacement Medications and IVs Current Medications Medications (Trade) Dose Ordered Sig/Rodney Route Start Time Stop Time Status Last Admin Miscellaneous Information 1 Q361D XX 02/15/16 04:00 (Tylenol) 650 mg Q4H PRN PO 03/29/16 10:30 04/25/16 06:18 (Motrin Liq) 400 mg Q6H PRN PO 04/01/16 11:15 06/20/16 21:07 (Lovenox Inj) 40 mg Q24H SQ 04/01/16 12:00 06/22/16 09:07 (Prinivil) 10 mg DAILY PO 04/26/16 09:00 06/22/16 09:06 (Colace) 100 mg BID PRN PO 04/28/16 11:00 (Milk Of Magnesia Liq) 30 ml Q6H PRN PO 04/28/16 11:45 (Lopressor) 25 mg Q12HR PO/GT 04/28/16 21:00 06/22/16 09:06 (Benadryl) 50 mg HS PRN PO 05/14/16 08:30 06/22/16 02:43 (Keppra) 1,000 mg Q12HR PO 06/10/16 21:00 06/22/16 09:07 Urinary Catheter: No Date of Insertion: Apr 10, 2016 Date of Removal: Apr 22, 2016 Vascular Central Line Catheter: No Date of Insertion: Mar 06, 2016 Line: PICC Side: Right Location: Antecubital A/P Problem List: (1) HTN (hypertension) ICD Code: I10 Status: Chronic (2) Traumatic brain injury ICD Code: S06.9X9A Status: Acute (3) Insomnia ICD Code: G47.00 Status: Acute (4) Urinary retention ICD Code: R33.9 Status: Resolved (5) Protein calorie malnutrition ICD Code: E46 Status: Acute Assessment and Plan 65-year-old male with: 1. S/P traumatic brain injury: Initial head CT with right occipital bone fracture along with intraparenchymal hemorrhage, bilateral subdural hematomas, and subarachnoid hemorrhages. S/p right frontal bur hole, right occipital craniectomy with SDH evacuation, PEG placement (now removed), left frontal temporoparietal decompressive craniotomy, and subsequent bone flap replacement. Neurosurgery signed off. -Continue PT/ST/OT. -On Keppra bid for seizure prophylaxis. -Weaned off methadone, discontinued as of 06/11 2. Protein Calorie malnutrition: Initially with PEG placement 02/20 then gradually increased po intake, Dietitian following, and PEG removed 05/25. -Tolerating oral intake well, continue to monitor 3. HTN: Stable. Continue on metoprolol 25 mg bid and lisinopril 10 mg daily. -Monitor and adjust BP meds as needed. 4. Urinary retention: Cuenca removed 04/22 and patient passed voiding trial. Voiding spontaneously. Resolved. 5. Insomnia: Benadryl prn. Avoid vital signs and other interruptions between midnight and 6am to assist with establishing regular sleep schedule. 6. DVT prophylaxis: Lovenox Discharge Planning Awaiting placement vs safe discharge plan. Case management assisting. Problem Qualifiers (1) HTN (hypertension): Qualified Code: I10 - Essential hypertension Rosa Rodriguez PA-C Jun 22, 2016 13:16
[2016-06-22 16:00] VITALS: BP 116/68; PULSE 71; RESP 17; TEMP 97.1; O2SAT 100
[2016-06-22 20:00] VITALS: BP 114/79; PULSE 72; RESP 17; TEMP 96.6; O2SAT 99
[2016-06-23] VITALS: BP 127/58; PULSE 68; RESP 16; TEMP 98.8; O2SAT 93
[2016-06-23] MEDS: levETIRAcetam 500 MG TAB PO SCH ×2 (07:47→20:05)
[2016-06-23] MEDS: LISINOPRIL 10 MG TAB PO SCH (07:47)
[2016-06-23] MEDS: METOPROLOL TARTRATE 25 MG TAB PO/GT SCH ×2 (07:47→20:05)
[2016-06-23] MEDS: ENOXAPARIN SODIUM 40 MG/0.4 ML SYRINGE SQ SCH (07:50)
[2016-06-23 08:00] VITALS: BP 123/81; PULSE 93; RESP 20; TEMP 96.9; O2SAT 98
[2016-06-23 12:00] VITALS: BP 132/69; PULSE 88; RESP 20; TEMP 96.5; O2SAT 98
--- NOTE | 2016-06-23 14:02 | HHI.PR ---
Subjective Remarks Follow-up for TBI. The patient has no acute complaints today. He is doing well. He is a little sleepy now because he stayed up late watching a [employer] race. Objective Vitals Vital Signs Date Time Temp Pulse Resp B/P Pulse Ox O2 Delivery O2 Flow Rate FiO2 06/23/16 12:00 96.5 88 20 132/69 98 06/23/16 08:00 96.9 93 20 123/81 98 06/22/16 20:00 96.6 72 17 114/79 99 Automatic Cuff 06/22/16 16:00 97.1 71 17 116/68 100 I/O 06/22/16 06/22/16 06/22/16 06/23/16 06/23/16 06/23/16 07:00 15:00 23:00 07:00 15:00 23:00 Intake Total 480 ml 960 ml 960 ml Balance 480 ml 960 ml 960 ml Intake Oral 480 ml 960 ml 960 ml # Voids 1 4 3 3 # Bowel Movements 2 Objective Remarks GENERAL: Well-developed well-nourished. In no acute distress. SKIN: Warm and dry. HEENT: Normocephalic. Pupils equal and round. CARDIOVASCULAR: Regular rate and rhythm. No murmur appreciated. RESPIRATORY: No accessory muscle use. Clear to auscultation. Breath sounds equal bilaterally. MUSCULOSKELETAL: No obvious deformities. Extremities without clubbing, cyanosis , or edema. NEUROLOGICAL: Awake and alert. Moves upper and lower extremities spontaneously. Speech not slurred, however often with expressive deficit, overall improving. PSYCHIATRIC: Appropriate mood and affect; insight and judgment fair to normal. Procedures 02/14 with right frontal bur hole and left subclavian line placement 02/15 with right occipital craniectomy with SDH evacuation 02/20 tracheostomy and PEG placement 02/25 left frontal temporoparietal decompressive craniotomy 03/06 PICC 03/29 bone flap replacement Date of Insertion: Apr 10, 2016 Date of Removal: Apr 22, 2016 Date of Insertion: Mar 06, 2016 Line: PICC Side: Right Location: Antecubital A/P Problem List: (1) HTN (hypertension) ICD Code: I10 Status: Chronic (2) Traumatic brain injury ICD Code: S06.9X9A Status: Acute (3) Insomnia ICD Code: G47.00 Status: Acute (4) Urinary retention ICD Code: R33.9 Status: Resolved (5) Protein calorie malnutrition ICD Code: E46 Status: Acute Assessment and Plan 65-year-old male with: 1. S/P traumatic brain injury: Initial head CT with right occipital bone fracture along with intraparenchymal hemorrhage, bilateral subdural hematomas, and subarachnoid hemorrhages. Patient is status post right frontal bur hole, right occipital craniectomy with SDH evacuation, PEG placement, left frontal temporoparietal decompressive craniotomy, and subsequent bone flap replacement. Neurosurgery has signed off. - Continue PT/speech therapy/occupational therapy - Keppra bid for seizure prophylaxis 2. Protein Calorie malnutrition: Initially requiring PEG tube, however patient had been eating well and this was removed 05/25. Tolerating diet. 3. HTN: Chronic, stable. Continue on metoprolol 25 mg twice daily and lisinopril 10 mg once daily. Monitor and adjust BP meds as needed. 4. Urinary retention: Cuenca removed 04/22 and patient passed voiding trial. Now voiding spontaneously. Resolved. Monitor. 5. DVT prophylaxis: Lovenox subcutaneous. Discharge Planning Awaiting placement vs a safe discharge plan when arranged. Case management assisting. Problem Qualifiers (1) HTN (hypertension): Qualified Code: I10 - Essential hypertension Ernesto Huntley Jun 23, 2016 14:02
[2016-06-23 15:57] VITALS: BP 100/70; PULSE 78; RESP 20; TEMP 96.5; O2SAT 100
[2016-06-23 20:29] VITALS: BP 108/66; PULSE 84; RESP 20; TEMP 96.6; O2SAT 99
[2016-06-24 08:12] VITALS: BP 158/79; PULSE 84; RESP 20; TEMP 96; O2SAT 98
[2016-06-24] MEDS: LISINOPRIL 10 MG TAB PO SCH (09:27)
[2016-06-24] MEDS: METOPROLOL TARTRATE 25 MG TAB PO/GT SCH ×2 (09:28→20:32)
[2016-06-24] MEDS: levETIRAcetam 500 MG TAB PO SCH ×2 (09:28→20:32)
[2016-06-24 12:04] VITALS: BP 109/67; PULSE 97; RESP 20; TEMP 96; O2SAT 98
[2016-06-24] MEDS: ENOXAPARIN SODIUM 40 MG/0.4 ML SYRINGE SQ SCH (12:48)
--- NOTE | 2016-06-24 13:14 | HHI.PR ---
Subjective Remarks Follow-up for TBI. The patient has no acute complaints today. Doing well. Objective Vitals Vital Signs Date Time Temp Pulse Resp B/P Pulse Ox O2 Delivery O2 Flow Rate FiO2 06/24/16 12:04 96.0 97 20 109/67 98 06/24/16 08:12 96.0 84 20 158/79 98 06/23/16 20:29 96.6 84 20 108/66 99 06/23/16 15:57 96.5 78 20 100/70 100 I/O 06/23/16 06/23/16 06/23/16 06/24/16 06/24/16 06/24/16 07:00 15:00 23:00 07:00 15:00 23:00 Intake Total 960 ml Balance 960 ml Intake Oral 960 ml # Voids 3 1 2 Objective Remarks GENERAL: Well-developed well-nourished. In no acute distress. SKIN: Warm and dry. HEENT: Normocephalic. Pupils equal and round. CARDIOVASCULAR: Regular rate and rhythm. No murmur appreciated. RESPIRATORY: No accessory muscle use. Clear to auscultation. Breath sounds equal bilaterally. MUSCULOSKELETAL: No obvious deformities. Extremities without clubbing, cyanosis , or edema. NEUROLOGICAL: Awake and alert. Moves upper and lower extremities spontaneously. Speech not slurred, however often with expressive deficit, overall improving. PSYCHIATRIC: Appropriate mood and affect; insight and judgment fair to normal. Procedures 02/14 with right frontal bur hole and left subclavian line placement 02/15 with right occipital craniectomy with SDH evacuation 02/20 tracheostomy and PEG placement 02/25 left frontal temporoparietal decompressive craniotomy 03/06 PICC 03/29 bone flap replacement Date of Insertion: Apr 10, 2016 Date of Removal: Apr 22, 2016 Date of Insertion: Mar 06, 2016 Line: PICC Side: Right Location: Antecubital A/P Problem List: (1) HTN (hypertension) ICD Code: I10 Status: Chronic (2) Traumatic brain injury ICD Code: S06.9X9A Status: Acute (3) Insomnia ICD Code: G47.00 Status: Acute (4) Urinary retention ICD Code: R33.9 Status: Resolved (5) Protein calorie malnutrition ICD Code: E46 Status: Acute Assessment and Plan 65-year-old male with: 1. S/P traumatic brain injury: Initial head CT with right occipital bone fracture along with intraparenchymal hemorrhage, bilateral subdural hematomas, and subarachnoid hemorrhages. Patient is status post right frontal bur hole, right occipital craniectomy with SDH evacuation, PEG placement, left frontal temporoparietal decompressive craniotomy, and subsequent bone flap replacement. Neurosurgery has signed off. - Discharged from PT/speech therapy/occupational therapy as patient has reached maximum benefit here - Keppra bid for seizure prophylaxis 2. Protein Calorie malnutrition: Initially requiring PEG tube, however patient had been eating well and PEG was removed 05/25. Tolerating diet. 3. HTN: Chronic, stable. Continue on metoprolol 25 mg twice daily and lisinopril 10 mg once daily. Monitor and adjust BP meds as needed. 4. Urinary retention: Cuenca removed 04/22 and patient passed voiding trial. Now voiding spontaneously. Resolved. Monitor. 5. DVT prophylaxis: Lovenox subcutaneous. Discharge Planning Awaiting placement vs a safe discharge plan when arranged. Discussed with case management. Problem Qualifiers (1) HTN (hypertension): Qualified Code: I10 - Essential hypertension Ernesto Huntley Jun 24, 2016 13:14
[2016-06-24 16:17] VITALS: BP 112/74; PULSE 78; RESP 20; TEMP 96.1; O2SAT 99
[2016-06-24 20:33] VITALS: BP 107/74; PULSE 76; RESP 18; TEMP 96.5; O2SAT 97
[2016-06-25 08:28] VITALS: BP 108/74; PULSE 71; RESP 18; TEMP 96.5; O2SAT 99
[2016-06-25] MEDS: METOPROLOL TARTRATE 25 MG TAB PO/GT SCH ×2 (09:30→20:54)
[2016-06-25] MEDS: levETIRAcetam 500 MG TAB PO SCH ×2 (09:30→20:54)
[2016-06-25] MEDS: LISINOPRIL 10 MG TAB PO SCH (09:30)
[2016-06-25] MEDS ORDERED: INFLUENZA VIRUS VACCINE (QUADRIVALENT) 0.5 ML SYR IM ONE (10:00)
--- NOTE | 2016-06-25 10:02 | HHI.PR ---
Subjective Remarks no complains Objective Vitals Vital Signs Date Time Temp Pulse Resp B/P Pulse Ox O2 Delivery O2 Flow Rate FiO2 06/25/16 08:28 96.5 71 18 108/74 99 06/24/16 20:33 96.5 76 18 107/74 97 06/24/16 16:17 96.1 78 20 112/74 99 06/24/16 12:04 96.0 97 20 109/67 98 I/O 06/24/16 06/24/16 06/24/16 06/25/16 06/25/16 06/25/16 07:00 15:00 23:00 07:00 15:00 23:00 Intake Total 360 ml Balance 360 ml Intake Oral 360 ml # Voids 2 3 1 1 # Bowel Movements 0 Imaging Last Impressions Chest X-Ray 03/27/16 0000 Signed Impressions: Service Date/Time: Sunday, March 27, 2016 03:46 - CONCLUSION: No significant change mild parenchymal opacities of the left lung. Duy Skelton MD Liver Ultrasound 03/18/16 0000 Signed Impressions: Service Date/Time: Friday, March 18, 2016 17:01 - CONCLUSION: Ultrasound appearance of the liver and other right upper quadrant structures is within normal limits. Duy Skelton MD Head CT 03/09/16 0600 Signed Impressions: Service Date/Time: Wednesday, March 09, 2016 04:21 - CONCLUSION: 1. Mild improvement of the cerebral edema in the left cerebral hemisphere. 2. Otherwise , no other new or significant changes. Alli Jj MD Head CTA 02/16/16 0000 Signed Impressions: Service Date/Time: Tuesday, February 16, 2016 04:31 - CONCLUSION: I do not see an etiology for the patient's cerebellar hemorrhage on the right. Small supratentorial vessels in a 65-year-old. Etiology of this finding is not apparent. Trace subdural blood and subarachnoid blood persist over both convexities. Earl Gaitan MD FACR Cervical Spine CT 02/15/16 0445 Signed Impressions: Service Date/Time: January 04:57 - CONCLUSION: 1. Slight neural foramina compromise bilateral C4-5 and C5-6 in addition to bilateral lateral recess compromise at these levels and no significant thecal sac stenosis. 2. There is also slight neural foramina compromise right C3-C4. 3. Nonspecific lucencies in the spine may be osteoporotic changes, however myeloma is difficult to exclude. Ariadne Feng MD Objective Remarks no distress awake and alert lungs no rales or wheezes regular rhythm abdomen- soft, good bowel sound previous trach and PEG site- wound- healed extremities no edema Procedures 02/14 with right frontal bur hole and left subclavian line placement 02/15 with right occipital craniectomy with SDH evacuation 02/20 tracheostomy and PEG placement 02/25 left frontal temporoparietal decompressive craniotomy 03/06 PICC 03/29 bone flap replacement Date of Insertion: Apr 10, 2016 Date of Removal: Apr 22, 2016 Date of Insertion: Mar 06, 2016 Line: PICC Side: Right Location: Antecubital A/P Problem List: (1) HTN (hypertension) ICD Code: I10 Status: Chronic (2) Traumatic brain injury ICD Code: S06.9X9A Status: Acute (3) Insomnia ICD Code: G47.00 Status: Acute (4) Urinary retention ICD Code: R33.9 Status: Resolved (5) Protein calorie malnutrition ICD Code: E46 Status: Acute Assessment and Plan 65-year-old male with: 1. S/P traumatic brain injury: Initial head CT with right occipital bone fracture along with intraparenchymal hemorrhage, bilateral subdural hematomas, and subarachnoid hemorrhages. Patient is status post right frontal bur hole, right occipital craniectomy with SDH evacuation, PEG placement, left frontal temporoparietal decompressive craniotomy, and subsequent bone flap replacement. Neurosurgery has signed off. - Discharged from PT/speech therapy/occupational therapy as patient has reached maximum benefit here - Keppra bid for seizure prophylaxis 2. Protein Calorie malnutrition: Initially requiring PEG tube, however patient had been eating well and PEG was removed 05/25. Tolerating diet. 3. HTN: Chronic, stable. Continue on metoprolol 25 mg twice daily and lisinopril 10 mg once daily. Monitor and adjust BP meds as needed. 4. Urinary retention: Resolved. Cuenca removed 04/22 and patient passed voiding trial. Now voiding spontaneously. Resolved. Monitor. 5. DVT prophylaxis: Lovenox subcutaneous. Discharge Planning Awaiting placement vs a safe discharge plan when arranged. CM for DC planning Problem Qualifiers (1) HTN (hypertension): Qualified Code: I10 - Essential hypertension Abdullahi Cerda MD Jun 25, 2016 10:02
[2016-06-25] MEDS: ENOXAPARIN SODIUM 40 MG/0.4 ML SYRINGE SQ SCH (11:28)
[2016-06-25 12:28] VITALS: BP 111/75; PULSE 75; RESP 18; TEMP 95.8; O2SAT 98
[2016-06-25 16:00] VITALS: BP 103/66; PULSE 76; RESP 18; TEMP 96.1; O2SAT 99
[2016-06-25 20:00] VITALS: BP 101/69; PULSE 69; RESP 18; TEMP 96.5; O2SAT 97
[2016-06-26 01:00] VITALS: BP 110/76; PULSE 98; RESP 18; TEMP 97.6; O2SAT 95
[2016-06-26] MEDS: LISINOPRIL 10 MG TAB PO SCH (08:32)
[2016-06-26] MEDS: levETIRAcetam 500 MG TAB PO SCH ×2 (08:32→20:26)
[2016-06-26] MEDS: METOPROLOL TARTRATE 25 MG TAB PO/GT SCH ×2 (08:32→20:26)
[2016-06-26 08:42] VITALS: BP 129/71; PULSE 71; RESP 20; TEMP 96.5; O2SAT 97
[2016-06-26] MEDS: ENOXAPARIN SODIUM 40 MG/0.4 ML SYRINGE SQ SCH (11:29)
[2016-06-26 12:00] VITALS: BP 98/58; PULSE 71; RESP 20; TEMP 98.3; O2SAT 99
--- NOTE | 2016-06-26 16:14 | HHI.PR ---
Subjective Remarks Follow up for TBI, awaiting placement. The patient is seen lying in bed watching tv. He has no medical complaints. Vital signs stable. Objective Vitals Vital Signs Date Time Temp Pulse Resp B/P Pulse Ox O2 Delivery O2 Flow Rate FiO2 06/26/16 12:00 98.3 71 20 98/58 99 06/26/16 08:42 96.5 71 20 129/71 97 06/26/16 01:00 97.6 98 18 110/76 95 06/25/16 20:00 96.5 69 18 101/69 97 I/O 06/25/16 06/25/16 06/25/16 06/26/16 06/26/16 06/26/16 07:00 15:00 23:00 07:00 15:00 23:00 Intake Total 360 ml 0 ml Balance 360 ml 0 ml Intake Oral 360 ml IV Total 0 ml # Voids 1 3 # Bowel Movements 0 Objective Remarks GENERAL: Well-nourished, well-developed middle aged male patient in [facility]. SKIN: Warm and dry. No rash. HEAD: Normocephalic. Atraumatic. NECK: Supple. Trachea midline. CARDIOVASCULAR: Regular rate and rhythm. S1, S2 noted. No murmur appreciated. RESPIRATORY: No accessory muscle use. Clear to auscultation. Breath sounds equal bilaterally. GASTROINTESTINAL: Abdomen soft, non-tender, nondistended. Normoactive bowel sounds x4. MUSCULOSKELETAL: No obvious deformities. Extremities without clubbing, cyanosis , or edema. NEUROLOGICAL: Awake and alert, oriented to self. Speech not slurred, however often with expressive deficit, overall improving. Moves all extremities spontaneously, right sided upper and lower extremity 4.5/5 strength, left upper and lower extremity 5/5 strength. Procedures 02/14 with right frontal bur hole and left subclavian line placement 02/15 with right occipital craniectomy with SDH evacuation 02/20 tracheostomy and PEG placement 02/25 left frontal temporoparietal decompressive craniotomy 03/06 PICC 03/29 bone flap replacement Medications and IVs Current Medications Medications (Trade) Dose Ordered Sig/Rodney Route Start Time Stop Time Status Last Admin Miscellaneous Information 1 Q361D XX 02/15/16 04:00 (Tylenol) 650 mg Q4H PRN PO 03/29/16 10:30 04/25/16 06:18 (Motrin Liq) 400 mg Q6H PRN PO 04/01/16 11:15 06/20/16 21:07 (Lovenox Inj) 40 mg Q24H SQ 04/01/16 12:00 06/26/16 11:29 (Prinivil) 10 mg DAILY PO 04/26/16 09:00 06/26/16 08:32 (Colace) 100 mg BID PRN PO 04/28/16 11:00 (Milk Of Magnesia Liq) 30 ml Q6H PRN PO 04/28/16 11:45 (Lopressor) 25 mg Q12HR PO/GT 04/28/16 21:00 06/26/16 08:32 (Benadryl) 50 mg HS PRN PO 05/14/16 08:30 06/22/16 02:43 (Keppra) 1,000 mg Q12HR PO 06/10/16 21:00 06/26/16 08:32 Urinary Catheter: No Date of Insertion: Apr 10, 2016 Date of Removal: Apr 22, 2016 Vascular Central Line Catheter: No Date of Insertion: Mar 06, 2016 Line: PICC Side: Right Location: Antecubital A/P Problem List: (1) HTN (hypertension) ICD Code: I10 Status: Chronic (2) Traumatic brain injury ICD Code: S06.9X9A Status: Acute (3) Insomnia ICD Code: G47.00 Status: Acute (4) Urinary retention ICD Code: R33.9 Status: Resolved (5) Protein calorie malnutrition ICD Code: E46 Status: Acute Assessment and Plan 65-year-old male with: 1. S/P traumatic brain injury: Initial head CT with right occipital bone fracture along with intraparenchymal hemorrhage, bilateral subdural hematomas, and subarachnoid hemorrhages. S/p right frontal bur hole, right occipital craniectomy with SDH evacuation, PEG placement (now removed), left frontal temporoparietal decompressive craniotomy, and subsequent bone flap replacement. Neurosurgery signed off. -Continue PT/ST/OT. -On Keppra bid for seizure prophylaxis. 2. Protein Calorie malnutrition: Initially with PEG placement 02/20 then gradually increased po intake, Dietitian following, and PEG removed 05/25. -Tolerating oral intake well, continue to monitor 3. HTN: Stable. Continue on metoprolol 25 mg bid and lisinopril 10 mg daily. -Monitor and adjust BP meds as needed. 4. Urinary retention: Cuenca removed 04/22 and patient passed voiding trial. Voiding spontaneously. Resolved. 5. Insomnia: Benadryl prn. Avoid vital signs and other interruptions between midnight and 6am to assist with establishing regular sleep schedule. 6. DVT prophylaxis: Lovenox Discharge Planning Awaiting placement vs safe discharge plan. Case management assisting. Problem Qualifiers (1) HTN (hypertension): Qualified Code: I10 - Essential hypertension Rosa Rodriguez PA-C Jun 26, 2016 16:14
[2016-06-26 16:25] VITALS: BP 103/77; PULSE 70; RESP 20; TEMP 96.7; O2SAT 98
[2016-06-26 20:00] VITALS: BP 99/64; PULSE 70; RESP 20; TEMP 97.1; O2SAT 100
[2016-06-27] MEDS: METOPROLOL TARTRATE 25 MG TAB PO/GT SCH ×2 (07:56→20:40)
[2016-06-27] MEDS: LISINOPRIL 10 MG TAB PO SCH (07:56)
[2016-06-27] MEDS: levETIRAcetam 500 MG TAB PO SCH ×2 (07:56→20:40)
[2016-06-27 08:00] VITALS: BP 127/78; PULSE 88; RESP 20; TEMP 96.6; O2SAT 99
--- NOTE | 2016-06-27 09:58 | HHI.PR ---
Subjective Remarks no complains Objective Vitals Vital Signs Date Time Temp Pulse Resp B/P Pulse Ox O2 Delivery O2 Flow Rate FiO2 06/27/16 08:00 96.6 88 20 127/78 99 06/26/16 20:00 97.1 70 20 99/64 100 06/26/16 16:25 96.7 70 20 103/77 98 06/26/16 12:00 98.3 71 20 98/58 99 I/O 06/26/16 06/26/16 06/26/16 06/27/16 06/27/16 06/27/16 07:00 15:00 23:00 07:00 15:00 23:00 Intake Total 960 ml 480 ml 120 ml Balance 960 ml 480 ml 120 ml Intake Oral 960 ml 480 ml 120 ml IV Total 0 ml # Voids 3 1 1 # Bowel Movements 1 0 0 Objective Remarks no distress awake and alert lungs no rales or wheezes regular rhythm abdomen- soft, good bowel sound previous trach and PEG site- wound- healed extremities no edema Procedures 02/14 with right frontal bur hole and left subclavian line placement 02/15 with right occipital craniectomy with SDH evacuation 02/20 tracheostomy and PEG placement 02/25 left frontal temporoparietal decompressive craniotomy 03/06 PICC 03/29 bone flap replacement Date of Insertion: Apr 10, 2016 Date of Removal: Apr 22, 2016 Date of Insertion: Mar 06, 2016 Line: PICC Side: Right Location: Antecubital A/P Problem List: (1) HTN (hypertension) ICD Code: I10 Status: Chronic (2) Traumatic brain injury ICD Code: S06.9X9A Status: Acute (3) Insomnia ICD Code: G47.00 Status: Acute (4) Urinary retention ICD Code: R33.9 Status: Resolved (5) Protein calorie malnutrition ICD Code: E46 Status: Acute Assessment and Plan 65-year-old male with: 1. S/P traumatic brain injury: Initial head CT with right occipital bone fracture along with intraparenchymal hemorrhage, bilateral subdural hematomas, and subarachnoid hemorrhages. Patient is status post right frontal bur hole, right occipital craniectomy with SDH evacuation, PEG placement, left frontal temporoparietal decompressive craniotomy, and subsequent bone flap replacement. Neurosurgery has signed off. - Discharged from PT/speech therapy/occupational therapy as patient has reached maximum benefit here - Keppra bid for seizure prophylaxis 2. Protein Calorie malnutrition: Initially requiring PEG tube, however patient had been eating well and PEG was removed 05/25. Tolerating diet. 3. HTN: Chronic, stable. Continue on metoprolol 25 mg twice daily and lisinopril 10 mg once daily. Monitor and adjust BP meds as needed. 4. Urinary retention: Resolved. Cuenca removed 04/22 and patient passed voiding trial. Now voiding spontaneously. Resolved. Monitor. 5. DVT prophylaxis: Lovenox subcutaneous. Discharge Planning Awaiting placement vs a safe discharge plan when arranged. CM for DC planning Problem Qualifiers (1) HTN (hypertension): Qualified Code: I10 - Essential hypertension Abdullhai Cerda MD Jun 27, 2016 09:58
[2016-06-27] MEDS: ENOXAPARIN SODIUM 40 MG/0.4 ML SYRINGE SQ SCH (11:29)
[2016-06-27 12:00] VITALS: BP 110/64; PULSE 74; RESP 20; TEMP 96.1; O2SAT 98
[2016-06-27 16:00] VITALS: BP 111/77; PULSE 65; RESP 20; TEMP 95.8; O2SAT 100
[2016-06-27 20:48] VITALS: BP 114/65; PULSE 78; RESP 19; TEMP 96.2; O2SAT 97
[2016-06-28 08:00] VITALS: BP 119/83; PULSE 81; RESP 18; TEMP 96.5; O2SAT 96
[2016-06-28] MEDS: METOPROLOL TARTRATE 25 MG TAB PO/GT SCH ×2 (08:29→21:19)
[2016-06-28] MEDS: levETIRAcetam 500 MG TAB PO SCH ×2 (08:29→21:19)
[2016-06-28] MEDS: LISINOPRIL 10 MG TAB PO SCH (08:29)
[2016-06-28] MEDS: ENOXAPARIN SODIUM 40 MG/0.4 ML SYRINGE SQ SCH (11:34)
[2016-06-28 12:00] VITALS: BP 105/76; PULSE 90; RESP 18; TEMP 96.5; O2SAT 97
--- NOTE | 2016-06-28 12:10 | HHI.PR ---
Subjective Remarks no complains up and ambulating around good po Objective Vitals Vital Signs Date Time Temp Pulse Resp B/P Pulse Ox O2 Delivery O2 Flow Rate FiO2 06/28/16 08:00 96.5 81 18 119/83 96 06/27/16 20:48 96.2 78 19 114/65 97 06/27/16 16:00 95.8 65 20 111/77 100 I/O 06/27/16 06/27/16 06/27/16 06/28/16 06/28/16 06/28/16 07:02 15:02 23:02 07:02 15:02 23:02 Intake Total 120 ml 360 ml 50 ml Balance 120 ml 360 ml 50 ml Intake Oral 120 ml 360 ml 50 ml # Voids 1 3 3 # Bowel Movements 0 1 Imaging Last Impressions Chest X-Ray 03/27/16 0000 Signed Impressions: Service Date/Time: Sunday, March 27, 2016 03:46 - CONCLUSION: No significant change mild parenchymal opacities of the left lung. Duy Skelton MD Liver Ultrasound 03/18/16 0000 Signed Impressions: Service Date/Time: Friday, March 18, 2016 17:01 - CONCLUSION: Ultrasound appearance of the liver and other right upper quadrant structures is within normal limits. Duy Skelton MD Head CT 03/09/16 0600 Signed Impressions: Service Date/Time: Wednesday, March 09, 2016 04:21 - CONCLUSION: 1. Mild improvement of the cerebral edema in the left cerebral hemisphere. 2. Otherwise , no other new or significant changes. Alli Jj MD Head CTA 02/16/16 0000 Signed Impressions: Service Date/Time: Tuesday, February 16, 2016 04:31 - CONCLUSION: I do not see an etiology for the patient's cerebellar hemorrhage on the right. Small supratentorial vessels in a 65-year-old. Etiology of this finding is not apparent. Trace subdural blood and subarachnoid blood persist over both convexities. Earl Gaitan MD FACR Cervical Spine CT 02/15/16 0445 Signed Impressions: Service Date/Time: January 04:57 - CONCLUSION: 1. Slight neural foramina compromise bilateral C4-5 and C5-6 in addition to bilateral lateral recess compromise at these levels and no significant thecal sac stenosis. 2. There is also slight neural foramina compromise right C3-C4. 3. Nonspecific lucencies in the spine may be osteoporotic changes, however myeloma is difficult to exclude. Ariadne Feng MD Objective Remarks no distress awake and alert lungs no rales or wheezes regular rhythm abdomen- soft, good bowel sound previous trach and PEG site- wound- healed extremities no edema Procedures 02/14 with right frontal bur hole and left subclavian line placement 02/15 with right occipital craniectomy with SDH evacuation 02/20 tracheostomy and PEG placement 02/25 left frontal temporoparietal decompressive craniotomy 03/06 PICC 03/29 bone flap replacement Date of Insertion: Apr 10, 2016 Date of Removal: Apr 22, 2016 Date of Insertion: Mar 06, 2016 Line: PICC Side: Right Location: Antecubital A/P Problem List: (1) HTN (hypertension) ICD Code: I10 Status: Chronic (2) Traumatic brain injury ICD Code: S06.9X9A Status: Acute (3) Insomnia ICD Code: G47.00 Status: Acute (4) Urinary retention ICD Code: R33.9 Status: Resolved (5) Protein calorie malnutrition ICD Code: E46 Status: Acute Assessment and Plan 65-year-old male with: 1. S/P traumatic brain injury: Initial head CT with right occipital bone fracture along with intraparenchymal hemorrhage, bilateral subdural hematomas, and subarachnoid hemorrhages. Patient is status post right frontal bur hole, right occipital craniectomy with SDH evacuation, PEG placement, left frontal temporoparietal decompressive craniotomy, and subsequent bone flap replacement. Neurosurgery has signed off. - Discharged from PT/speech therapy/occupational therapy as patient has reached maximum benefit here - Keppra bid for seizure prophylaxis 2. Protein Calorie malnutrition: Initially requiring PEG tube, however patient had been eating well and PEG was removed 05/25. Tolerating diet. 3. HTN: Chronic, stable. Continue on metoprolol 25 mg twice daily and lisinopril 10 mg once daily. Monitor and adjust BP meds as needed. 4. Urinary retention: Resolved. Cuenca removed 04/22 and patient passed voiding trial. Now voiding spontaneously. Resolved. 5. DVT prophylaxis: Lovenox subcutaneous. Discharge Planning Awaiting placement vs a safe discharge plan when arranged. CM for DC planning Problem Qualifiers (1) HTN (hypertension): Qualified Code: I10 - Essential hypertension Abdullahi Cerda MD Jun 28, 2016 12:10
[2016-06-28 16:00] VITALS: BP 102/59; PULSE 69; RESP 18; TEMP 96.2; O2SAT 98
[2016-06-28 20:27] VITALS: BP 133/72; PULSE 93; RESP 18; TEMP 96; O2SAT 98
[2016-06-29 08:15] VITALS: BP 112/78; PULSE 78; RESP 16; TEMP 95.7; O2SAT 97
[2016-06-29] MEDS: levETIRAcetam 500 MG TAB PO SCH ×2 (08:41→20:24)
[2016-06-29] MEDS: METOPROLOL TARTRATE 25 MG TAB PO/GT SCH ×2 (08:41→20:23)
[2016-06-29] MEDS: LISINOPRIL 10 MG TAB PO SCH (08:41)
[2016-06-29] MEDS: ENOXAPARIN SODIUM 40 MG/0.4 ML SYRINGE SQ SCH (11:40)
[2016-06-29 12:06] VITALS: BP 95/65; PULSE 80; RESP 16; TEMP 95.3; O2SAT 98
[2016-06-29 16:18] VITALS: BP 134/80; PULSE 75; RESP 18; TEMP 95.5; O2SAT 99
--- NOTE | 2016-06-29 17:13 | HHI.PR ---
Subjective Remarks no complains up and ambulating Objective Vitals Vital Signs Date Time Temp Pulse Resp B/P Pulse Ox O2 Delivery O2 Flow Rate FiO2 06/29/16 12:06 95.3 80 16 95/65 98 06/29/16 08:15 95.7 78 16 112/78 97 06/28/16 20:27 96.0 93 18 133/72 98 I/O 06/28/16 06/28/16 06/28/16 06/29/16 06/29/16 06/29/16 07:00 15:00 23:00 07:00 15:00 23:00 Intake Total 770 ml 240 ml 50 ml Balance 770 ml 240 ml 50 ml Intake Oral 770 ml 240 ml 50 ml # Voids 3 4 Objective Remarks no distress awake and alert lungs no rales or wheezes regular rhythm abdomen- soft, good bowel sound previous trach and PEG site- wound- healed extremities no edema Procedures 02/14 with right frontal bur hole and left subclavian line placement 02/15 with right occipital craniectomy with SDH evacuation 02/20 tracheostomy and PEG placement 02/25 left frontal temporoparietal decompressive craniotomy 03/06 PICC 03/29 bone flap replacement Date of Insertion: Apr 10, 2016 Date of Removal: Apr 22, 2016 Date of Insertion: Mar 06, 2016 Line: PICC Side: Right Location: Antecubital A/P Problem List: (1) HTN (hypertension) ICD Code: I10 Status: Chronic (2) Traumatic brain injury ICD Code: S06.9X9A Status: Acute (3) Insomnia ICD Code: G47.00 Status: Acute (4) Urinary retention ICD Code: R33.9 Status: Resolved (5) Protein calorie malnutrition ICD Code: E46 Status: Acute Assessment and Plan 65-year-old male with: 1. S/P traumatic brain injury: Initial head CT with right occipital bone fracture along with intraparenchymal hemorrhage, bilateral subdural hematomas, and subarachnoid hemorrhages. Patient is status post right frontal bur hole, right occipital craniectomy with SDH evacuation, PEG placement, left frontal temporoparietal decompressive craniotomy, and subsequent bone flap replacement. Neurosurgery has signed off. - Discharged from PT/speech therapy/occupational therapy as patient has reached maximum benefit here - Keppra bid for seizure prophylaxis 2. Protein Calorie malnutrition: Initially requiring PEG tube, however patient had been eating well and PEG was removed 05/25. Tolerating diet. 3. HTN: Chronic, stable. Continue on metoprolol 25 mg twice daily and lisinopril 10 mg once daily. Monitor and adjust BP meds as needed. 4. Urinary retention: Resolved. Cuenca removed 04/22 and patient passed voiding trial. Now voiding spontaneously. Resolved. 5. DVT prophylaxis: Lovenox subcutaneous. Discharge Planning Awaiting placement vs a safe discharge plan when arranged. CM for DC planning Problem Qualifiers (1) HTN (hypertension): Qualified Code: I10 - Essential hypertension Abdullahi Cerda MD Jun 29, 2016 17:13
[2016-06-29 20:00] VITALS: BP_SYST 128; BP_SYST 139; BP_DIAS 60; BP_DIAS 70; PULSE 66; PULSE 68; RESP 20; TEMP 96.4; TEMP 97.2; O2SAT 95; O2SAT 98
[2016-06-30 08:13] VITALS: BP 112/76; PULSE 83; RESP 17; TEMP 96.1; O2SAT 100
[2016-06-30] MEDS: LISINOPRIL 10 MG TAB PO SCH (09:09)
[2016-06-30] MEDS: METOPROLOL TARTRATE 25 MG TAB PO/GT SCH ×2 (09:09→21:00)
[2016-06-30] MEDS: levETIRAcetam 500 MG TAB PO SCH ×2 (09:09→20:59)
--- NOTE | 2016-06-30 11:23 | HHI.PR ---
Subjective Remarks no complains up and ambulating had a good BM Objective Vitals Vital Signs Date Time Temp Pulse Resp B/P Pulse Ox O2 Delivery O2 Flow Rate FiO2 06/30/16 08:13 96.1 83 17 112/76 100 06/29/16 20:00 96.4 68 20 139/70 98 06/29/16 16:18 95.5 75 18 134/80 99 06/29/16 12:06 95.3 80 16 95/65 98 I/O 06/29/16 06/29/16 06/29/16 06/30/16 06/30/16 06/30/16 06:59 14:59 22:59 06:59 14:59 22:59 Intake Total 240 ml 770 ml 480 ml Balance 240 ml 770 ml 480 ml Intake Oral 240 ml 770 ml 480 ml # Voids 4 2 # Bowel Movements 1 0 Objective Remarks no distress awake and alert lungs no rales or wheezes regular rhythm abdomen- soft, good bowel sound previous trach and PEG site- wound- healed extremities no edema Procedures 02/14 with right frontal bur hole and left subclavian line placement 02/15 with right occipital craniectomy with SDH evacuation 02/20 tracheostomy and PEG placement 02/25 left frontal temporoparietal decompressive craniotomy 03/06 PICC 03/29 bone flap replacement Date of Insertion: Apr 10, 2016 Date of Removal: Apr 22, 2016 Date of Insertion: Mar 06, 2016 Line: PICC Side: Right Location: Antecubital A/P Problem List: (1) HTN (hypertension) ICD Code: I10 Status: Chronic (2) Traumatic brain injury ICD Code: S06.9X9A Status: Acute (3) Insomnia ICD Code: G47.00 Status: Acute (4) Urinary retention ICD Code: R33.9 Status: Resolved (5) Protein calorie malnutrition ICD Code: E46 Status: Acute Assessment and Plan 65-year-old male with: 1. S/P traumatic brain injury: Initial head CT with right occipital bone fracture along with intraparenchymal hemorrhage, bilateral subdural hematomas, and subarachnoid hemorrhages. Patient is status post right frontal bur hole, right occipital craniectomy with SDH evacuation, PEG placement, left frontal temporoparietal decompressive craniotomy, and subsequent bone flap replacement. Neurosurgery has signed off. - Discharged from PT/speech therapy/occupational therapy as patient has reached maximum benefit here - Keppra bid for seizure prophylaxis 2. Protein Calorie malnutrition: Initially requiring PEG tube, however patient had been eating well and PEG was removed 05/25. Tolerating diet. 3. HTN: Chronic, stable. Continue on metoprolol 25 mg twice daily and lisinopril 10 mg once daily. Monitor and adjust BP meds as needed. 4. Urinary retention: Resolved. Cuenca removed 04/22 and patient passed voiding trial. Now voiding spontaneously. Resolved. 5. DVT prophylaxis: Lovenox subcutaneous. CM for DC planning- ? DC tomorrow - [place] Problem Qualifiers (1) HTN (hypertension): Qualified Code: I10 - Essential hypertension Abdullahi Cerda MD Jun 30, 2016 11:23
[2016-06-30] MEDS: ENOXAPARIN SODIUM 40 MG/0.4 ML SYRINGE SQ SCH (12:00)
[2016-06-30 12:07] VITALS: BP 90/66; PULSE 83; RESP 18; TEMP 95.3; O2SAT 99
[2016-06-30 16:06] VITALS: BP 105/73; PULSE 66; RESP 16; TEMP 95.5; O2SAT 99
[2016-06-30 20:00] VITALS: BP 114/70; PULSE 68; RESP 16; TEMP 96.4; O2SAT 98
[2016-07-01 08:00] VITALS: BP 106/77; PULSE 79; RESP 15; TEMP 96.9; O2SAT 98
[2016-07-01 08:06] VITALS: O2SAT 96
[2016-07-01] MEDS: levETIRAcetam 500 MG TAB PO SCH ×2 (08:17→21:20)
[2016-07-01] MEDS: METOPROLOL TARTRATE 25 MG TAB PO/GT SCH ×2 (08:17→21:22)
[2016-07-01] MEDS: LISINOPRIL 10 MG TAB PO SCH (08:17)
[2016-07-01] MEDS: ENOXAPARIN SODIUM 40 MG/0.4 ML SYRINGE SQ SCH (10:55)
[2016-07-01 12:00] VITALS: BP 95/54; PULSE 83; RESP 18; TEMP 95.9; O2SAT 98
[2016-07-01 16:18] VITALS: BP 92/62; PULSE 81; RESP 18; TEMP 96.6; O2SAT 99
--- NOTE | 2016-07-01 16:20 | HHI.PR ---
Subjective Remarks up and ambulating around no complain Objective Vitals Vital Signs Date Time Temp Pulse Resp B/P Pulse Ox O2 Delivery O2 Flow Rate FiO2 07/01/16 16:18 96.6 81 18 92/62 99 07/01/16 12:00 95.9 83 18 95/54 98 07/01/16 08:06 96 07/01/16 08:00 96.9 79 15 106/77 98 06/30/16 20:00 96.4 68 16 114/70 98 I/O 06/30/16 06/30/16 06/30/16 07/01/16 07/01/16 07/01/16 07:00 15:00 23:00 07:00 15:00 23:00 Intake Total 720 ml 240 ml 240 ml 480 ml Output Total 0 ml 0 ml Balance 720 ml 240 ml 240 ml 480 ml Intake Oral 720 ml 240 ml 240 ml 480 ml Stool Total 0 ml 0 ml # Voids 3 2 2 # Bowel Movements 0 Objective Remarks no distress awake and alert lungs no rales or wheezes regular rhythm abdomen- soft, good bowel sound previous trach and PEG site- wound- healed extremities no edema Procedures 02/14 with right frontal bur hole and left subclavian line placement 02/15 with right occipital craniectomy with SDH evacuation 02/20 tracheostomy and PEG placement 02/25 left frontal temporoparietal decompressive craniotomy 03/06 PICC 03/29 bone flap replacement Date of Insertion: Apr 10, 2016 Date of Removal: Apr 22, 2016 Date of Insertion: Mar 06, 2016 Line: PICC Side: Right Location: Antecubital A/P Problem List: (1) HTN (hypertension) ICD Code: I10 Status: Chronic (2) Traumatic brain injury ICD Code: S06.9X9A Status: Acute (3) Insomnia ICD Code: G47.00 Status: Acute (4) Urinary retention ICD Code: R33.9 Status: Resolved (5) Protein calorie malnutrition ICD Code: E46 Status: Acute Assessment and Plan 65-year-old male with: 1. S/P traumatic brain injury: Initial head CT with right occipital bone fracture along with intraparenchymal hemorrhage, bilateral subdural hematomas, and subarachnoid hemorrhages. Patient is status post right frontal bur hole, right occipital craniectomy with SDH evacuation, PEG placement, left frontal temporoparietal decompressive craniotomy, and subsequent bone flap replacement. Neurosurgery has signed off. - Discharged from PT/speech therapy/occupational therapy as patient has reached maximum benefit here - Keppra bid for seizure prophylaxis 2. Protein Calorie malnutrition: Initially requiring PEG tube, however patient had been eating well and PEG was removed 05/25. Tolerating diet. 3. HTN: Chronic, stable. Continue on metoprolol 25 mg twice daily and lisinopril 10 mg once daily. Monitor and adjust BP meds as needed. 4. Urinary retention: Resolved. Cuenca removed 04/22 and patient passed voiding trial. Now voiding spontaneously. Resolved. 5. DVT prophylaxis: Lovenox subcutaneous. CM for DC planning- ? DC tomorrow - [place] Problem Qualifiers (1) HTN (hypertension): Qualified Code: I10 - Essential hypertension Abdullahi Cerda MD Jul 01, 2016 16:20
[2016-07-01 20:00] VITALS: BP 108/70; PULSE 86; RESP 18; TEMP 96.6; O2SAT 99
[2016-07-02 08:27] VITALS: BP 136/63; PULSE 76; RESP 16; TEMP 95.6; O2SAT 98
[2016-07-02] MEDS: METOPROLOL TARTRATE 25 MG TAB PO/GT SCH (09:27)
[2016-07-02] MEDS: LISINOPRIL 10 MG TAB PO SCH (09:27)
[2016-07-02] MEDS: levETIRAcetam 500 MG TAB PO SCH ×2 (09:27→20:46)
[2016-07-02] MEDS: ENOXAPARIN SODIUM 40 MG/0.4 ML SYRINGE SQ SCH (12:00)
[2016-07-02 12:22] VITALS: BP 82/57; PULSE 91; RESP 16; TEMP 95.8; O2SAT 99
--- NOTE | 2016-07-02 13:15 | HHI.PR ---
Subjective Remarks no complains up and ambulating no dizziness VS reviewed- some SBPs in the 80- symptomatic Objective Vitals Vital Signs Date Time Temp Pulse Resp B/P Pulse Ox O2 Delivery O2 Flow Rate FiO2 07/02/16 12:22 95.8 91 16 82/57 99 07/02/16 08:27 95.6 76 16 136/63 98 07/01/16 20:00 96.6 86 18 108/70 99 07/01/16 16:18 96.6 81 18 92/62 99 I/O 07/01/16 07/01/16 07/01/16 07/02/16 07/02/16 07/02/16 07:00 15:00 23:00 07:00 15:00 23:00 Intake Total 240 ml 480 ml Output Total 0 ml 850 ml Balance 240 ml 480 ml -850 ml Intake Oral 240 ml 480 ml Output Urine Total 850 ml Stool Total 0 ml # Voids 2 Imaging Last Impressions Chest X-Ray 03/27/16 0000 Signed Impressions: Service Date/Time: Sunday, March 27, 2016 03:46 - CONCLUSION: No significant change mild parenchymal opacities of the left lung. Duy Skelton MD Liver Ultrasound 03/18/16 0000 Signed Impressions: Service Date/Time: Friday, March 18, 2016 17:01 - CONCLUSION: Ultrasound appearance of the liver and other right upper quadrant structures is within normal limits. Duy Skelton MD Head CT 03/09/16 0600 Signed Impressions: Service Date/Time: Wednesday, March 09, 2016 04:21 - CONCLUSION: 1. Mild improvement of the cerebral edema in the left cerebral hemisphere. 2. Otherwise , no other new or significant changes. Alli Jj MD Head CTA 02/16/16 0000 Signed Impressions: Service Date/Time: Tuesday, February 16, 2016 04:31 - CONCLUSION: I do not see an etiology for the patient's cerebellar hemorrhage on the right. Small supratentorial vessels in a 65-year-old. Etiology of this finding is not apparent. Trace subdural blood and subarachnoid blood persist over both convexities. Earl Gaitan MD FACR Cervical Spine CT 02/15/16 0445 Signed Impressions: Service Date/Time: January 04:57 - CONCLUSION: 1. Slight neural foramina compromise bilateral C4-5 and C5-6 in addition to bilateral lateral recess compromise at these levels and no significant thecal sac stenosis. 2. There is also slight neural foramina compromise right C3-C4. 3. Nonspecific lucencies in the spine may be osteoporotic changes, however myeloma is difficult to exclude. Ariadne Feng MD Objective Remarks no distress awake and alert lungs no rales or wheezes regular rhythm abdomen- soft, good bowel sound previous trach and PEG site- wound- healed extremities no edema Procedures 02/14 with right frontal bur hole and left subclavian line placement 02/15 with right occipital craniectomy with SDH evacuation 02/20 tracheostomy and PEG placement 02/25 left frontal temporoparietal decompressive craniotomy 03/06 PICC 03/29 bone flap replacement Date of Insertion: Apr 10, 2016 Date of Removal: Apr 22, 2016 Date of Insertion: Mar 06, 2016 Line: PICC Side: Right Location: Antecubital A/P Problem List: (1) HTN (hypertension) ICD Code: I10 Status: Chronic (2) Traumatic brain injury ICD Code: S06.9X9A Status: Acute (3) Insomnia ICD Code: G47.00 Status: Acute (4) Urinary retention ICD Code: R33.9 Status: Resolved (5) Protein calorie malnutrition ICD Code: E46 Status: Acute Assessment and Plan 65-year-old male with: 1. S/P traumatic brain injury: Initial head CT with right occipital bone fracture along with intraparenchymal hemorrhage, bilateral subdural hematomas, and subarachnoid hemorrhages. Patient is status post right frontal bur hole, right occipital craniectomy with SDH evacuation, PEG placement, left frontal temporoparietal decompressive craniotomy, and subsequent bone flap replacement. Neurosurgery has signed off. - Discharged from PT/speech therapy/occupational therapy as patient has reached maximum benefit here - Keppra bid for seizure prophylaxis 2. Protein Calorie malnutrition: Initially requiring PEG tube, however patient had been eating well and PEG was removed 05/25. Tolerating diet. 3. HTN: Chronic- some SBPs in the 8-s Decrease Metoprolol to 12.5 mg po bid - with hold parameter DC Lisinopril 4. Urinary retention: Resolved. Cuenca removed 04/22 5. DVT prophylaxis: Lovenox subcutaneous.- will DC= patient up and ambulating very well- and stays active CM for DC planning- [facility] willing to take him - awaiting paper works Problem Qualifiers (1) HTN (hypertension): Qualified Code: I10 - Essential hypertension Abdullahi Cerda MD Jul 02, 2016 13:15
[2016-07-02] MEDS: METOPROLOL TARTRATE 25 MG TAB PO SCH ×2 (13:57→20:46)
[2016-07-02 16:11] VITALS: BP 102/69; PULSE 80; RESP 18; TEMP 95.4; O2SAT 100
[2016-07-02 20:00] VITALS: BP 98/67; PULSE 74; RESP 16; TEMP 96.8; O2SAT 97
[2016-07-03 08:29] VITALS: BP 115/72; PULSE 78; RESP 18; TEMP 96.2; O2SAT 97
[2016-07-03] MEDS: METOPROLOL TARTRATE 25 MG TAB PO SCH ×2 (09:00→21:00)
[2016-07-03] MEDS: levETIRAcetam 500 MG TAB PO SCH ×2 (10:01→21:13)
[2016-07-03 12:20] VITALS: BP 106/76; PULSE 87; RESP 20; TEMP 96.7; O2SAT 98
--- NOTE | 2016-07-03 16:12 | HHI.PR ---
Subjective Remarks The pt had no acute complaints. Resting comfortably. Objective Vitals Vital Signs Date Time Temp Pulse Resp B/P Pulse Ox O2 Delivery O2 Flow Rate FiO2 07/03/16 12:20 96.7 87 20 106/76 98 07/03/16 08:29 96.2 78 18 115/72 97 07/02/16 20:00 96.8 74 16 98/67 97 07/02/16 16:11 95.4 80 18 102/69 100 I/O 07/02/16 07/02/16 07/02/16 07/03/16 07/03/16 07/03/16 07:00 15:00 23:00 07:00 15:00 23:00 Intake Total 360 ml 280 ml 120 ml Output Total 850 ml Balance -850 ml 360 ml 280 ml 120 ml Intake Oral 360 ml 280 ml 120 ml Output Urine Total 850 ml # Voids 2 2 2 # Bowel Movements 1 Imaging Last Impressions Chest X-Ray 03/27/16 0000 Signed Impressions: Service Date/Time: Sunday, March 27, 2016 03:46 - CONCLUSION: No significant change mild parenchymal opacities of the left lung. Duy Skelton MD Liver Ultrasound 03/18/16 0000 Signed Impressions: Service Date/Time: Friday, March 18, 2016 17:01 - CONCLUSION: Ultrasound appearance of the liver and other right upper quadrant structures is within normal limits. Duy Skleton MD Head CT 03/09/16 0600 Signed Impressions: Service Date/Time: Wednesday, March 09, 2016 04:21 - CONCLUSION: 1. Mild improvement of the cerebral edema in the left cerebral hemisphere. 2. Otherwise , no other new or significant changes. Alli Jj MD Head CTA 02/16/16 0000 Signed Impressions: Service Date/Time: Tuesday, February 16, 2016 04:31 - CONCLUSION: I do not see an etiology for the patient's cerebellar hemorrhage on the right. Small supratentorial vessels in a 65-year-old. Etiology of this finding is not apparent. Trace subdural blood and subarachnoid blood persist over both convexities. Earl Gaitan MD FACR Cervical Spine CT 02/15/16 0445 Signed Impressions: Service Date/Time: January 04:57 - CONCLUSION: 1. Slight neural foramina compromise bilateral C4-5 and C5-6 in addition to bilateral lateral recess compromise at these levels and no significant thecal sac stenosis. 2. There is also slight neural foramina compromise right C3-C4. 3. Nonspecific lucencies in the spine may be osteoporotic changes, however myeloma is difficult to exclude. Ariadne Feng MD Objective Remarks GENERAL: Well-nourished, well-developed middle aged male patient in [facility]. SKIN: Warm and dry. No rash. HEAD: Normocephalic. Atraumatic. NECK: Supple. Trachea midline. CARDIOVASCULAR: Regular rate and rhythm. S1, S2 noted. No murmur appreciated. RESPIRATORY: No accessory muscle use. Clear to auscultation. Breath sounds equal bilaterally. GASTROINTESTINAL: Abdomen soft, non-tender, nondistended. Normoactive bowel sounds x4. MUSCULOSKELETAL: No obvious deformities. Extremities without clubbing, cyanosis , or edema. NEUROLOGICAL: Awake and alert, oriented to self. Speech not slurred, however often with expressive deficit, overall improving. Moves all extremities spontaneously, right sided upper and lower extremity 4.5/5 strength, left upper and lower extremity 5/5 strength. Procedures 02/14 with right frontal bur hole and left subclavian line placement 02/15 with right occipital craniectomy with SDH evacuation 02/20 tracheostomy and PEG placement 02/25 left frontal temporoparietal decompressive craniotomy 03/06 PICC 03/29 bone flap replacement Medications and IVs Current Medications Medications (Trade) Dose Ordered Sig/Rodney Route Start Time Stop Time Status Last Admin Miscellaneous Information 1 [id number] XX 02/15/16 04:00 (Tylenol) 650 mg Q4H PRN PO 03/29/16 10:30 04/25/16 06:18 (Motrin Liq) 400 mg Q6H PRN PO 04/01/16 11:15 06/20/16 21:07 (Colace) 100 mg BID PRN PO 04/28/16 11:00 (Milk Of Magnesia Liq) 30 ml Q6H PRN PO 04/28/16 11:45 (Benadryl) 50 mg HS PRN PO 05/14/16 08:30 06/22/16 02:43 (Keppra) 1,000 mg Q12HR PO 9/19/16 21:00 07/03/16 10:01 (Lopressor) 12.5 mg Q12HR PO 07/02/16 14:00 Date of Insertion: Apr 10, 2016 Date of Removal: Apr 22, 2016 Date of Insertion: Mar 06, 2016 Line: PICC Side: Right Location: Antecubital A/P Problem List: (1) HTN (hypertension) ICD Code: I10 Status: Chronic (2) Traumatic brain injury ICD Code: S06.9X9A Status: Acute (3) Insomnia ICD Code: G47.00 Status: Acute (4) Urinary retention ICD Code: R33.9 Status: Resolved (5) Protein calorie malnutrition ICD Code: E46 Status: Acute Assessment and Plan 1. S/P traumatic brain injury: Initial head CT with right occipital bone fracture along with intraparenchymal hemorrhage, bilateral subdural hematomas, and subarachnoid hemorrhages. Patient is status post right frontal bur hole, right occipital craniectomy with SDH evacuation, PEG placement, left frontal temporoparietal decompressive craniotomy, and subsequent bone flap replacement. Neurosurgery has signed off. - Discharged from PT/speech therapy/occupational therapy as patient has reached maximum benefit here - Keppra bid for seizure prophylaxis 2. Protein Calorie malnutrition: Initially requiring PEG tube, however patient had been eating well and PEG was removed 05/25. Tolerating diet. 3. HTN: Blood pressure has been on the low side. Decrease Metoprolol to 12.5 mg po bid - with hold parameter DC Lisinopril 4. Urinary retention: Resolved. Cuenca removed 04/22 5. DVT prophylaxis: Lovenox subcutaneous.- will DC= patient up and ambulating very well- and stays active Discharge Planning Awaiting placement. Problem Qualifiers (1) HTN (hypertension): Qualified Code: I10 - Essential hypertension Sabino Britt DO Jul 03, 2016 16:12
[2016-07-03 16:38] VITALS: BP 107/77; PULSE 87; RESP 20; TEMP 95.8; O2SAT 98
[2016-07-03 20:00] VITALS: BP 120/89; PULSE 80; RESP 20; TEMP 97; O2SAT 98
[2016-07-04 08:14] VITALS: BP 138/90; PULSE 90; RESP 18; TEMP 98.8; O2SAT 98
[2016-07-04] MEDS: levETIRAcetam 500 MG TAB PO SCH ×2 (10:14→23:21)
[2016-07-04] MEDS: METOPROLOL TARTRATE 25 MG TAB PO SCH ×2 (10:14→23:21)
--- NOTE | 2016-07-04 10:43 | HHI.PR ---
Subjective Remarks No acute concerns reported. Objective Vitals Vital Signs Date Time Temp Pulse Resp B/P Pulse Ox O2 Delivery O2 Flow Rate FiO2 07/04/16 08:14 98.8 90 18 138/90 98 07/03/16 20:00 97.0 80 20 120/89 98 07/03/16 16:38 95.8 87 20 107/77 98 07/03/16 12:20 96.7 87 20 106/76 98 I/O 07/03/16 07/03/16 07/03/16 07/04/16 07/04/16 07/04/16 06:59 14:59 22:59 06:59 14:59 22:59 Intake Total 120 ml 480 ml 240 ml 120 ml Balance 120 ml 480 ml 240 ml 120 ml Intake Oral 120 ml 480 ml 240 ml 120 ml # Voids 2 3 1 1 # Bowel Movements 1 0 0 Imaging Last Impressions Chest X-Ray 03/27/16 0000 Signed Impressions: Service Date/Time: Sunday, March 27, 2016 03:46 - CONCLUSION: No significant change mild parenchymal opacities of the left lung. Duy Skelton MD Liver Ultrasound 03/18/16 0000 Signed Impressions: Service Date/Time: Friday, March 18, 2016 17:01 - CONCLUSION: Ultrasound appearance of the liver and other right upper quadrant structures is within normal limits. Duy Skelton MD Head CT 03/09/16 0600 Signed Impressions: Service Date/Time: Wednesday, March 09, 2016 04:21 - CONCLUSION: 1. Mild improvement of the cerebral edema in the left cerebral hemisphere. 2. Otherwise , no other new or significant changes. Alli Jj MD Head CTA 02/16/16 0000 Signed Impressions: Service Date/Time: Tuesday, February 16, 2016 04:31 - CONCLUSION: I do not see an etiology for the patient's cerebellar hemorrhage on the right. Small supratentorial vessels in a 65-year-old. Etiology of this finding is not apparent. Trace subdural blood and subarachnoid blood persist over both convexities. Earl Gaitan MD FACR Cervical Spine CT 02/15/16 0445 Signed Impressions: Service Date/Time: January 04:57 - CONCLUSION: 1. Slight neural foramina compromise bilateral C4-5 and C5-6 in addition to bilateral lateral recess compromise at these levels and no significant thecal sac stenosis. 2. There is also slight neural foramina compromise right C3-C4. 3. Nonspecific lucencies in the spine may be osteoporotic changes, however myeloma is difficult to exclude. Ariadne Feng MD Objective Remarks GENERAL: Well-nourished, well-developed middle aged male patient in [facility]. SKIN: Warm and dry. No rash. HEAD: Normocephalic. Atraumatic. NECK: Supple. Trachea midline. CARDIOVASCULAR: Regular rate and rhythm. S1, S2 noted. No murmur appreciated. RESPIRATORY: No accessory muscle use. Clear to auscultation. Breath sounds equal bilaterally. GASTROINTESTINAL: Abdomen soft, non-tender, nondistended. Normoactive bowel sounds x4. MUSCULOSKELETAL: No obvious deformities. Extremities without clubbing, cyanosis , or edema. NEUROLOGICAL: Awake and alert, oriented to self. Speech not slurred, however often with expressive deficit, overall improving. Moves all extremities spontaneously, right sided upper and lower extremity 4.5/5 strength, left upper and lower extremity 5/5 strength. Procedures 02/14 with right frontal bur hole and left subclavian line placement 02/15 with right occipital craniectomy with SDH evacuation 02/20 tracheostomy and PEG placement 02/25 left frontal temporoparietal decompressive craniotomy 03/06 PICC 03/29 bone flap replacement Medications and IVs Current Medications Medications (Trade) Dose Ordered Sig/Rodney Route Start Time Stop Time Status Last Admin Miscellaneous Information 1 Q361D XX 02/15/16 04:00 (Tylenol) 650 mg Q4H PRN PO 03/29/16 10:30 04/25/16 06:18 (Motrin Liq) 400 mg Q6H PRN PO 04/01/16 11:15 06/20/16 21:07 (Colace) 100 mg BID PRN PO 04/28/16 11:00 (Milk Of Magnesia Liq) 30 ml Q6H PRN PO 04/28/16 11:45 (Benadryl) 50 mg HS PRN PO 05/14/16 08:30 06/22/16 02:43 (Keppra) 1,000 mg Q12HR PO 06/10/16 21:00 07/04/16 10:14 (Lopressor) 12.5 mg Q12HR PO 07/02/16 14:00 07/04/16 10:14 Date of Insertion: Apr 10, 2016 Date of Removal: Apr 22, 2016 Date of Insertion: Mar 06, 2016 Line: PICC Side: Right Location: Antecubital A/P Problem List: (1) HTN (hypertension) ICD Code: I10 Status: Chronic (2) Traumatic brain injury ICD Code: S06.9X9A Status: Acute (3) Insomnia ICD Code: G47.00 Status: Acute (4) Urinary retention ICD Code: R33.9 Status: Resolved (5) Protein calorie malnutrition ICD Code: E46 Status: Acute Assessment and Plan 1. S/P traumatic brain injury: Initial head CT with right occipital bone fracture along with intraparenchymal hemorrhage, bilateral subdural hematomas, and subarachnoid hemorrhages. Patient is status post right frontal bur hole, right occipital craniectomy with SDH evacuation, PEG placement, left frontal temporoparietal decompressive craniotomy, and subsequent bone flap replacement. Neurosurgery has signed off. - Discharged from PT/speech therapy/occupational therapy as patient has reached maximum benefit here - Keppra bid for seizure prophylaxis 2. Protein Calorie malnutrition: Initially requiring PEG tube, however patient had been eating well and PEG was removed 05/25. Tolerating diet. 3. HTN: Blood pressure has been on the low side. Decrease Metoprolol to 12.5 mg po bid - with hold parameter DC Lisinopril 4. Urinary retention: Resolved. Cuenca removed 04/22 5. DVT prophylaxis: Lovenox subcutaneous.- will DC= patient up and ambulating very well- and stays active Discharge Planning Awaiting placement. Problem Qualifiers (1) HTN (hypertension): Qualified Code: I10 - Essential hypertension Sabino Britt DO Jul 04, 2016 10:43
[2016-07-04 12:18] VITALS: BP 136/96; PULSE 110; RESP 20; TEMP 98.9; O2SAT 97
[2016-07-04 16:29] VITALS: BP 113/82; PULSE 94; RESP 20; TEMP 98.8; O2SAT 98
[2016-07-04 20:00] VITALS: BP 130/88; PULSE 85; RESP 18; TEMP 97.2; O2SAT 99
[2016-07-05 08:00] VITALS: BP 120/81; PULSE 76; RESP 18; TEMP 96.7; O2SAT 98
[2016-07-05] MEDS: levETIRAcetam 500 MG TAB PO SCH ×2 (09:02→22:11)
[2016-07-05] MEDS: METOPROLOL TARTRATE 25 MG TAB PO SCH ×2 (09:03→22:11)
--- NOTE | 2016-07-05 10:43 | HHI.PR ---
Subjective Remarks The pt has been been ambulating. He only got 5 hours of sleep. No acute complaints. Objective Vitals Vital Signs Date Time Temp Pulse Resp B/P Pulse Ox O2 Delivery O2 Flow Rate FiO2 07/05/16 08:00 96.7 76 18 120/81 98 07/05/16 02:45 07/04/16 20:00 97.2 85 18 130/88 99 07/04/16 16:29 98.8 94 20 113/82 98 07/04/16 12:18 98.9 110 20 136/96 97 I/O 07/04/16 07/04/16 07/04/16 07/05/16 07/05/16 07/05/16 07:00 15:00 23:00 07:00 15:00 23:00 Intake Total 120 ml 480 ml 1440 ml Balance 120 ml 480 ml 1440 ml Intake Oral 120 ml 480 ml 1440 ml # Voids 1 3 5 # Bowel Movements 0 0 0 Imaging Last Impressions Chest X-Ray 03/27/16 0000 Signed Impressions: Service Date/Time: Sunday, March 27, 2016 03:46 - CONCLUSION: No significant change mild parenchymal opacities of the left lung. Duy Skelton MD Liver Ultrasound 03/18/16 0000 Signed Impressions: Service Date/Time: Friday, March 18, 2016 17:01 - CONCLUSION: Ultrasound appearance of the liver and other right upper quadrant structures is within normal limits. Duy Skelton MD Head CT 03/09/16 0600 Signed Impressions: Service Date/Time: Wednesday, March 09, 2016 04:21 - CONCLUSION: 1. Mild improvement of the cerebral edema in the left cerebral hemisphere. 2. Otherwise , no other new or significant changes. Alli Jj MD Head CTA 02/16/16 0000 Signed Impressions: Service Date/Time: Tuesday, February 16, 2016 04:31 - CONCLUSION: I do not see an etiology for the patient's cerebellar hemorrhage on the right. Small supratentorial vessels in a 65-year-old. Etiology of this finding is not apparent. Trace subdural blood and subarachnoid blood persist over both convexities. Earl Gaitan MD FACR Cervical Spine CT 02/15/16 0445 Signed Impressions: Service Date/Time: Thursday, February 15, 2016 04:57 - CONCLUSION: 1. Slight neural foramina compromise bilateral C4-5 and C5-6 in addition to bilateral lateral recess compromise at these levels and no significant thecal sac stenosis. 2. There is also slight neural foramina compromise right C3-C4. 3. Nonspecific lucencies in the spine may be osteoporotic changes, however myeloma is difficult to exclude. Ariadne Feng MD Objective Remarks GENERAL: Well-nourished, well-developed middle aged male patient in [place]. SKIN: Warm and dry. No rash. HEAD: Normocephalic. Atraumatic. NECK: Supple. Trachea midline. CARDIOVASCULAR: Regular rate and rhythm. S1, S2 noted. No murmur appreciated. RESPIRATORY: No accessory muscle use. Clear to auscultation. Breath sounds equal bilaterally. GASTROINTESTINAL: Abdomen soft, non-tender, nondistended. Normoactive bowel sounds x4. MUSCULOSKELETAL: No obvious deformities. Extremities without clubbing, cyanosis , or edema. NEUROLOGICAL: Awake and alert, oriented to self. Speech not slurred, however often with expressive deficit, overall improving. Moves all extremities spontaneously, right sided upper and lower extremity 4.5/5 strength, left upper and lower extremity 5/5 strength. Procedures 02/14 with right frontal bur hole and left subclavian line placement 02/15 with right occipital craniectomy with SDH evacuation 02/20 tracheostomy and PEG placement 02/25 left frontal temporoparietal decompressive craniotomy 03/06 PICC 03/29 bone flap replacement Medications and IVs Current Medications Medications (Trade) Dose Ordered Sig/Rodney Route Start Time Stop Time Status Last Admin Miscellaneous Information 1 Q361D XX 02/15/16 04:00 (Tylenol) 650 mg Q4H PRN PO 03/29/16 10:30 04/25/16 06:18 (Motrin Liq) 400 mg Q6H PRN PO 04/01/16 11:15 06/20/16 21:07 (Colace) 100 mg BID PRN PO 04/28/16 11:00 (Milk Of Magnesia Liq) 30 ml Q6H PRN PO 04/28/16 11:45 (Benadryl) 50 mg HS PRN PO 05/14/16 08:30 06/22/16 02:43 (Keppra) 1,000 mg Q12HR PO 06/10/16 21:00 07/05/16 09:02 (Lopressor) 12.5 mg Q12HR PO 07/02/16 14:00 07/05/16 09:03 Date of Insertion: Apr 10, 2016 Date of Removal: Apr 22, 2016 Date of Insertion: Mar 06, 2016 Line: PICC Side: Right Location: Antecubital A/P Problem List: (1) HTN (hypertension) ICD Code: I10 Status: Chronic (2) Traumatic brain injury ICD Code: S06.9X9A Status: Acute (3) Insomnia ICD Code: G47.00 Status: Acute (4) Urinary retention ICD Code: R33.9 Status: Resolved (5) Protein calorie malnutrition ICD Code: E46 Status: Acute Assessment and Plan 1. S/P traumatic brain injury: Initial head CT with right occipital bone fracture along with intraparenchymal hemorrhage, bilateral subdural hematomas, and subarachnoid hemorrhages. Patient is status post right frontal bur hole, right occipital craniectomy with SDH evacuation, PEG placement, left frontal temporoparietal decompressive craniotomy, and subsequent bone flap replacement. Neurosurgery has signed off. - Discharged from PT/speech therapy/occupational therapy as patient has reached maximum benefit here - Keppra bid for seizure prophylaxis 2. Protein Calorie malnutrition: Initially requiring PEG tube, however patient had been eating well and PEG was removed 05/25. Tolerating diet. 3. HTN: Blood pressure has been on the low side. Decrease Metoprolol to 12.5 mg po bid - with hold parameter DC Lisinopril 4. Urinary retention: Resolved. Cuenca removed 04/22 5. DVT prophylaxis: Lovenox subcutaneous.- will DC= patient up and ambulating very well- and stays active Discharge Planning Awaiting placement. Problem Qualifiers (1) HTN (hypertension): Qualified Code: I10 - Essential hypertension Sbaino Britt DO Jul 05, 2016 10:43
[2016-07-05 12:00] VITALS: BP 128/91; PULSE 86; RESP 18; TEMP 97.2; O2SAT 100
[2016-07-05 16:00] VITALS: BP 122/85; PULSE 71; RESP 18; TEMP 97; O2SAT 100
[2016-07-05 20:00] VITALS: BP 118/87; PULSE 69; RESP 20; TEMP 96.1; O2SAT 98
[2016-07-05] MEDS: IBUPROFEN SUSP 100 MG/5 ML UDC PO PRN (22:13)
[2016-07-06 07:55] LABS: HEMATOCRIT 39.2 % (39.0-51.0); MEAN CELL VOLUME 85.2 FL (80.0-100.0); MEAN CORPUSCULAR HEMOGLOBIN 29.7 PG (27.0-34.0); MEAN CORPUSCULAR HGB CONC 34.8 % (32.0-36.0); PLATELET COUNT 347 TH/MM3 (150-450); RED CELL DISTRIBUTION WIDTH 14.9 % (11.6-17.2); REVIEW FLAG FINAL; WHITE BLOOD COUNT 6.4 TH/MM3 (4.0-11.0)
[2016-07-06 08:16] VITALS: BP 107/80; PULSE 64; RESP 18; TEMP 96.9; O2SAT 98
[2016-07-06 08:24] LABS: BICARBONATE 27.4 MEQ/L (21.0-32.0); MAGNESIUM 1.9 MG/DL (1.5-2.5); POTASSIUM 3.9 MEQ/L (3.5-5.1)
[2016-07-06] MEDS: levETIRAcetam 500 MG TAB PO SCH ×2 (08:31→21:10)
[2016-07-06] MEDS: METOPROLOL TARTRATE 25 MG TAB PO SCH ×2 (08:31→21:10)
[2016-07-06 12:06] VITALS: BP 111/78; PULSE 91; RESP 18; TEMP 96.8; O2SAT 95
--- NOTE | 2016-07-06 13:44 | HHI.PR ---
Subjective Remarks The patient was sitting in a chair by the window. He had no acute complaints. He said he was going to ambulate the hallways soon. Objective Vitals Vital Signs Date Time Temp Pulse Resp B/P Pulse Ox O2 Delivery O2 Flow Rate FiO2 07/06/16 12:06 96.8 91 18 111/78 95 07/06/16 08:16 96.9 64 18 107/80 98 07/05/16 23:13 18 07/05/16 20:00 96.1 69 20 118/87 98 07/05/16 16:00 97.0 71 18 122/85 100 I/O 07/05/16 07/05/16 07/05/16 07/06/16 07/06/16 07/06/16 07:00 15:00 23:00 07:00 15:00 23:00 Intake Total 480 ml Balance 480 ml Intake Oral 480 ml # Voids 2 1 1 Result Diagram: 07/06/16 0721 07/06/16 0721 Imaging Last Impressions Chest X-Ray 03/27/16 0000 Signed Impressions: Service Date/Time: Sunday, March 27, 2016 03:46 - CONCLUSION: No significant change mild parenchymal opacities of the left lung. Duy Skelton MD Liver Ultrasound 03/18/16 0000 Signed Impressions: Service Date/Time: Friday, March 18, 2016 17:01 - CONCLUSION: Ultrasound appearance of the liver and other right upper quadrant structures is within normal limits. Duy Skelton MD Head CT 03/09/16 0600 Signed Impressions: Service Date/Time: Wednesday, March 09, 2016 04:21 - CONCLUSION: 1. Mild improvement of the cerebral edema in the left cerebral hemisphere. 2. Otherwise , no other new or significant changes. Alli Jj MD Head CTA 02/16/16 0000 Signed Impressions: Service Date/Time: Tuesday, February 16, 2016 04:31 - CONCLUSION: I do not see an etiology for the patient's cerebellar hemorrhage on the right. Small supratentorial vessels in a 65-year-old. Etiology of this finding is not apparent. Trace subdural blood and subarachnoid blood persist over both convexities. Earl Gaitan MD FACR Cervical Spine CT 02/15/16 0445 Signed Impressions: Service Date/Time: January 04:57 - CONCLUSION: 1. Slight neural foramina compromise bilateral C4-5 and C5-6 in addition to bilateral lateral recess compromise at these levels and no significant thecal sac stenosis. 2. There is also slight neural foramina compromise right C3-C4. 3. Nonspecific lucencies in the spine may be osteoporotic changes, however myeloma is difficult to exclude. Ariadne Feng MD Objective Remarks GENERAL: Well-nourished, well-developed middle aged male patient in [place]. SKIN: Warm and dry. No rash. HEAD: Normocephalic. Atraumatic. NECK: Supple. Trachea midline. CARDIOVASCULAR: Regular rate and rhythm. S1, S2 noted. No murmur appreciated. RESPIRATORY: No accessory muscle use. Clear to auscultation. Breath sounds equal bilaterally. GASTROINTESTINAL: Abdomen soft, non-tender, nondistended. Normoactive bowel sounds x4. MUSCULOSKELETAL: No obvious deformities. Extremities without clubbing, cyanosis , or edema. NEUROLOGICAL: Awake and alert, oriented to self. Speech not slurred, however often with expressive deficit, overall improving. Moves all extremities spontaneously, right sided upper and lower extremity 4.5/5 strength, left upper and lower extremity 5/5 strength. Procedures 02/14 with right frontal bur hole and left subclavian line placement 02/15 with right occipital craniectomy with SDH evacuation 02/20 tracheostomy and PEG placement 02/25 left frontal temporoparietal decompressive craniotomy 03/06 PICC 03/29 bone flap replacement Medications and IVs Current Medications Medications (Trade) Dose Ordered Sig/Rodney Route Start Time Stop Time Status Last Admin Miscellaneous Information 1 Q361D XX 02/15/16 04:00 (Tylenol) 650 mg Q4H PRN PO 03/29/16 10:30 04/25/16 06:18 (Motrin Liq) 400 mg Q6H PRN PO 04/01/16 11:15 07/05/16 22:13 (Colace) 100 mg BID PRN PO 04/28/16 11:00 (Milk Of Magnesia Liq) 30 ml Q6H PRN PO 04/28/16 11:45 (Benadryl) 50 mg HS PRN PO 05/14/16 08:30 06/22/16 02:43 (Keppra) 1,000 mg Q12HR PO 06/10/16 21:00 07/06/16 08:31 (Lopressor) 12.5 mg Q12HR PO 07/02/16 14:00 07/06/16 08:31 Date of Insertion: Apr 10, 2016 Date of Removal: Apr 22, 2016 Date of Insertion: Mar 06, 2016 Line: PICC Side: Right Location: Antecubital A/P Problem List: (1) HTN (hypertension) ICD Code: I10 Status: Chronic (2) Traumatic brain injury ICD Code: S06.9X9A Status: Acute (3) Insomnia ICD Code: G47.00 Status: Acute (4) Urinary retention ICD Code: R33.9 Status: Resolved (5) Protein calorie malnutrition ICD Code: E46 Status: Acute Assessment and Plan S/P traumatic brain injury Initial head CT with right occipital bone fracture along with intraparenchymal hemorrhage, bilateral subdural hematomas, and subarachnoid hemorrhages. Patient is status post right frontal bur hole, right occipital craniectomy with SDH evacuation, PEG placement, left frontal temporoparietal decompressive craniotomy, and subsequent bone flap replacement. Neurosurgery has signed off. - Discharged from PT/speech therapy/occupational therapy as patient has reached maximum benefit here - Keppra bid for seizure prophylaxis Protein Calorie malnutrition Initially requiring PEG tube, however patient had been eating well and PEG was removed 05/25. - Tolerating diet. HTN Blood pressure has been on the low side. - Decrease Metoprolol to 12.5 mg po bid. - DC Lisinopril. DVT prophylaxis: Ambulation. Discharge Planning Awaiting placement. Problem Qualifiers (1) HTN (hypertension): Qualified Code: I10 - Essential hypertension Sabino Britt DO Jul 06, 2016 13:44
[2016-07-06 15:58] VITALS: BP 111/73; PULSE 80; RESP 16; TEMP 98.6; O2SAT 100
[2016-07-06 20:57] VITALS: BP 130/79; PULSE 69; RESP 18; TEMP 96; O2SAT 98
[2016-07-07 08:00] VITALS: BP 118/80; PULSE 71; RESP 18; TEMP 95.8; O2SAT 98
[2016-07-07] MEDS: METOPROLOL TARTRATE 25 MG TAB PO SCH ×2 (09:15→22:50)
[2016-07-07] MEDS: levETIRAcetam 500 MG TAB PO SCH ×2 (09:15→22:49)
--- NOTE | 2016-07-07 09:50 | HHI.PR ---
Subjective Remarks The patient was resting in bed. He said he was still waking up. No acute complaints. Objective Vitals Vital Signs Date Time Temp Pulse Resp B/P Pulse Ox O2 Delivery O2 Flow Rate FiO2 07/07/16 08:00 95.8 71 18 118/80 98 07/06/16 20:57 96.0 69 18 130/79 98 07/06/16 15:58 98.6 80 16 111/73 100 07/06/16 12:06 96.8 91 18 111/78 95 I/O 07/06/16 07/06/16 07/06/16 07/07/16 07/07/16 07/07/16 07:00 15:00 23:00 07:00 15:00 23:00 Intake Total 480 ml Balance 480 ml Intake Oral 480 ml # Voids 3 1 3 # Bowel Movements 1 0 Result Diagram: 07/06/16 0721 07/06/16 0721 Imaging Last Impressions Chest X-Ray 03/27/16 0000 Signed Impressions: Service Date/Time: Sunday, March 27, 2016 03:46 - CONCLUSION: No significant change mild parenchymal opacities of the left lung. Duy Skelton MD Liver Ultrasound 03/18/16 0000 Signed Impressions: Service Date/Time: Friday, March 18, 2016 17:01 - CONCLUSION: Ultrasound appearance of the liver and other right upper quadrant structures is within normal limits. Duy Skelton MD Head CT 03/09/16 0600 Signed Impressions: Service Date/Time: Wednesday, March 09, 2016 04:21 - CONCLUSION: 1. Mild improvement of the cerebral edema in the left cerebral hemisphere. 2. Otherwise , no other new or significant changes. Alli Jj MD Head CTA 02/16/16 0000 Signed Impressions: Service Date/Time: Tuesday, February 16, 2016 04:31 - CONCLUSION: I do not see an etiology for the patient's cerebellar hemorrhage on the right. Small supratentorial vessels in a 65-year-old. Etiology of this finding is not apparent. Trace subdural blood and subarachnoid blood persist over both convexities. Earl Gaitan MD FACR Cervical Spine CT 02/15/16 0445 Signed Impressions: Service Date/Time: January 04:57 - CONCLUSION: 1. Slight neural foramina compromise bilateral C4-5 and C5-6 in addition to bilateral lateral recess compromise at these levels and no significant thecal sac stenosis. 2. There is also slight neural foramina compromise right C3-C4. 3. Nonspecific lucencies in the spine may be osteoporotic changes, however myeloma is difficult to exclude. Ariadne Feng MD Objective Remarks GENERAL: Well-nourished, well-developed middle aged male patient in [facility]. SKIN: Warm and dry. No rash. HEAD: Normocephalic. Atraumatic. NECK: Supple. Trachea midline. CARDIOVASCULAR: Regular rate and rhythm. S1, S2 noted. No murmur appreciated. RESPIRATORY: No accessory muscle use. Clear to auscultation. Breath sounds equal bilaterally. GASTROINTESTINAL: Abdomen soft, non-tender, nondistended. Normoactive bowel sounds x4. MUSCULOSKELETAL: No obvious deformities. Extremities without clubbing, cyanosis , or edema. NEUROLOGICAL: Awake and alert, oriented to self. Speech not slurred, however often with expressive deficit, overall improving. Moves all extremities spontaneously, right sided upper and lower extremity 4.5/5 strength, left upper and lower extremity 5/5 strength. Procedures 02/14 with right frontal bur hole and left subclavian line placement 02/15 with right occipital craniectomy with SDH evacuation 02/20 tracheostomy and PEG placement 02/25 left frontal temporoparietal decompressive craniotomy 03/06 PICC 03/29 bone flap replacement Medications and IVs Current Medications Medications (Trade) Dose Ordered Sig/Rodney Route Start Time Stop Time Status Last Admin Miscellaneous Information 1 Q361D XX 02/15/16 04:00 (Tylenol) 650 mg Q4H PRN PO 03/29/16 10:30 04/25/16 06:18 (Motrin Liq) 400 mg Q6H PRN PO 04/01/16 11:15 07/05/16 22:13 (Colace) 100 mg BID PRN PO 04/28/16 11:00 (Milk Of Magnesia Liq) 30 ml Q6H PRN PO 04/28/16 11:45 (Benadryl) 50 mg HS PRN PO 05/14/16 08:30 06/22/16 02:43 (Keppra) 1,000 mg Q12HR PO 06/10/16 21:00 07/07/16 09:15 (Lopressor) 12.5 mg Q12HR PO 07/02/16 14:00 07/07/16 09:15 Date of Insertion: Apr 10, 2016 Date of Removal: Apr 22, 2016 Date of Insertion: Mar 06, 2016 Line: PICC Side: Right Location: Antecubital A/P Problem List: (1) HTN (hypertension) ICD Code: I10 Status: Chronic (2) Traumatic brain injury ICD Code: S06.9X9A Status: Acute (3) Insomnia ICD Code: G47.00 Status: Acute (4) Urinary retention ICD Code: R33.9 Status: Resolved (5) Protein calorie malnutrition ICD Code: E46 Status: Acute Assessment and Plan S/P traumatic brain injury Initial head CT with right occipital bone fracture along with intraparenchymal hemorrhage, bilateral subdural hematomas, and subarachnoid hemorrhages. Patient is status post right frontal bur hole, right occipital craniectomy with SDH evacuation, PEG placement, left frontal temporoparietal decompressive craniotomy, and subsequent bone flap replacement. Neurosurgery has signed off. - Discharged from PT/speech therapy/occupational therapy as patient has reached maximum benefit here - Keppra bid for seizure prophylaxis Protein Calorie malnutrition Initially requiring PEG tube, however patient had been eating well and PEG was removed 05/25. - Tolerating diet. HTN Blood pressure has been on the low side. - Decrease Metoprolol to 12.5 mg po bid. - DC Lisinopril. DVT prophylaxis: Ambulation. Discharge Planning Awaiting placement. Problem Qualifiers (1) HTN (hypertension): Qualified Code: I10 - Essential hypertension Saibno Britt DO Jul 07, 2016 09:50
[2016-07-07 12:15] VITALS: BP 132/77; PULSE 78; RESP 16; TEMP 95.7; O2SAT 97
[2016-07-07 16:00] VITALS: BP 125/79; PULSE 66; RESP 16; TEMP 95.2; O2SAT 99
[2016-07-07 20:17] VITALS: BP 123/90; PULSE 78; RESP 16; TEMP 97; O2SAT 99
[2016-07-08 08:00] VITALS: BP 139/84; PULSE 69; RESP 16; TEMP 96.8; O2SAT 99
[2016-07-08] MEDS: METOPROLOL TARTRATE 25 MG TAB PO SCH ×2 (08:48→21:39)
[2016-07-08] MEDS: levETIRAcetam 500 MG TAB PO SCH ×2 (08:48→21:39)
[2016-07-08 12:00] VITALS: BP 123/86; PULSE 90; RESP 16; TEMP 95.9; O2SAT 97
[2016-07-08 16:00] VITALS: BP 131/80; PULSE 78; RESP 16; TEMP 96.5; O2SAT 100
--- NOTE | 2016-07-08 17:17 | HHI.PR ---
Subjective Remarks The patient was ambulating the hallways. He had no acute complaints. Objective Vitals Vital Signs Date Time Temp Pulse Resp B/P Pulse Ox O2 Delivery O2 Flow Rate FiO2 07/08/16 16:00 96.5 78 16 131/80 100 07/08/16 12:00 95.9 90 16 123/86 97 07/08/16 08:00 96.8 69 16 139/84 99 07/07/16 20:17 97.0 78 16 123/90 99 I/O 07/07/16 07/07/16 07/07/16 07/08/16 07/08/16 07/08/16 07:00 15:00 23:00 07:00 15:00 23:00 Intake Total 960 ml 960 ml Balance 960 ml 960 ml Intake Oral 960 ml 960 ml # Voids 3 3 2 4 # Bowel Movements 0 1 0 Result Diagram: 07/06/16 0721 07/06/16 0721 Imaging Last Impressions Chest X-Ray 03/27/16 0000 Signed Impressions: Service Date/Time: Sunday, March 27, 2016 03:46 - CONCLUSION: No significant change mild parenchymal opacities of the left lung. Duy Skelton MD Liver Ultrasound 03/18/16 0000 Signed Impressions: Service Date/Time: Friday, March 18, 2016 17:01 - CONCLUSION: Ultrasound appearance of the liver and other right upper quadrant structures is within normal limits. Duy Skelton MD Head CT 03/09/16 0600 Signed Impressions: Service Date/Time: Wednesday, March 09, 2016 04:21 - CONCLUSION: 1. Mild improvement of the cerebral edema in the left cerebral hemisphere. 2. Otherwise , no other new or significant changes. Alli Jj MD Head CTA 02/16/16 0000 Signed Impressions: Service Date/Time: Tuesday, February 16, 2016 04:31 - CONCLUSION: I do not see an etiology for the patient's cerebellar hemorrhage on the right. Small supratentorial vessels in a 65-year-old. Etiology of this finding is not apparent. Trace subdural blood and subarachnoid blood persist over both convexities. Earl Gaitan MD FACR Cervical Spine CT 02/15/16 0445 Signed Impressions: Service Date/Time: January 04:57 - CONCLUSION: 1. Slight neural foramina compromise bilateral C4-5 and C5-6 in addition to bilateral lateral recess compromise at these levels and no significant thecal sac stenosis. 2. There is also slight neural foramina compromise right C3-C4. 3. Nonspecific lucencies in the spine may be osteoporotic changes, however myeloma is difficult to exclude. Ariadne Feng MD Objective Remarks GENERAL: Well-nourished, well-developed middle aged male patient in [facility]. SKIN: Warm and dry. No rash. HEAD: Normocephalic. Atraumatic. NECK: Supple. Trachea midline. CARDIOVASCULAR: Regular rate and rhythm. S1, S2 noted. No murmur appreciated. RESPIRATORY: No accessory muscle use. Clear to auscultation. Breath sounds equal bilaterally. GASTROINTESTINAL: Abdomen soft, non-tender, nondistended. Normoactive bowel sounds x4. MUSCULOSKELETAL: No obvious deformities. Extremities without clubbing, cyanosis , or edema. NEUROLOGICAL: Awake and alert, oriented to self. Speech not slurred, however often with expressive deficit, overall improving. Moves all extremities spontaneously, right sided upper and lower extremity 4.5/5 strength, left upper and lower extremity 5/5 strength. Procedures 02/14 with right frontal bur hole and left subclavian line placement 02/15 with right occipital craniectomy with SDH evacuation 02/20 tracheostomy and PEG placement 02/25 left frontal temporoparietal decompressive craniotomy 03/06 PICC 03/29 bone flap replacement Medications and IVs Current Medications Medications (Trade) Dose Ordered Sig/Rodney Route Start Time Stop Time Status Last Admin Miscellaneous Information 1 [id number] XX 02/15/16 04:00 (Tylenol) 650 mg Q4H PRN PO 03/29/16 10:30 04/25/16 06:18 (Motrin Liq) 400 mg Q6H PRN PO 04/01/16 11:15 07/05/16 22:13 (Colace) 100 mg BID PRN PO 04/28/16 11:00 (Milk Of Magnesia Liq) 30 ml Q6H PRN PO 04/28/16 11:45 (Benadryl) 50 mg HS PRN PO 05/14/16 08:30 06/22/16 02:43 (Keppra) 1,000 mg Q12HR PO 06/10/16 21:00 07/08/16 08:48 (Lopressor) 12.5 mg Q12HR PO 07/02/16 14:00 07/08/16 08:48 Date of Insertion: Apr 10, 2016 Date of Removal: Apr 22, 2016 Date of Insertion: Mar 06, 2016 Line: PICC Side: Right Location: Antecubital A/P Problem List: (1) HTN (hypertension) ICD Code: I10 Status: Chronic (2) Traumatic brain injury ICD Code: S06.9X9A Status: Acute (3) Insomnia ICD Code: G47.00 Status: Acute (4) Urinary retention ICD Code: R33.9 Status: Resolved (5) Protein calorie malnutrition ICD Code: E46 Status: Acute Assessment and Plan S/P traumatic brain injury Initial head CT with right occipital bone fracture along with intraparenchymal hemorrhage, bilateral subdural hematomas, and subarachnoid hemorrhages. Patient is status post right frontal bur hole, right occipital craniectomy with SDH evacuation, PEG placement, left frontal temporoparietal decompressive craniotomy, and subsequent bone flap replacement. Neurosurgery has signed off. - Discharged from PT/speech therapy/occupational therapy as patient has reached maximum benefit here - Keppra bid for seizure prophylaxis Protein Calorie malnutrition Initially requiring PEG tube, however patient had been eating well and PEG was removed 05/25. - Tolerating diet. HTN Blood pressure has been on the low side. - Decrease Metoprolol to 12.5 mg po bid. - DC Lisinopril. DVT prophylaxis: Ambulation. Discharge Planning Awaiting placement. Problem Qualifiers (1) HTN (hypertension): Qualified Code: I10 - Essential hypertension Sabino Britt DO Jul 08, 2016 17:17
[2016-07-08 20:00] VITALS: BP 131/77; PULSE 78; RESP 18; TEMP 95.9; O2SAT 98
[2016-07-09 08:05] VITALS: BP 132/77; PULSE 63; RESP 16; TEMP 96.1; O2SAT 99
[2016-07-09] MEDS: METOPROLOL TARTRATE 25 MG TAB PO SCH ×2 (09:00→21:09)
[2016-07-09] MEDS: levETIRAcetam 500 MG TAB PO SCH ×2 (09:36→21:08)
--- NOTE | 2016-07-09 10:46 | HHI.PR ---
Subjective Remarks no complains up and ambulating around Objective Vitals Vital Signs Date Time Temp Pulse Resp B/P Pulse Ox O2 Delivery O2 Flow Rate FiO2 07/09/16 08:05 96.1 63 16 132/77 99 07/08/16 20:00 95.9 78 18 131/77 98 07/08/16 16:00 96.5 78 16 131/80 100 07/08/16 12:00 95.9 90 16 123/86 97 I/O 07/08/16 07/08/16 07/08/16 07/09/16 07/09/16 07/09/16 07:00 15:00 23:00 07:00 15:00 23:00 Intake Total 960 ml Balance 960 ml Intake Oral 960 ml # Voids 2 4 10 # Bowel Movements 0 2 Result Diagram: 07/06/16 0721 07/06/16 0721 Imaging Last Impressions Chest X-Ray 03/27/16 0000 Signed Impressions: Service Date/Time: Sunday, March 27, 2016 03:46 - CONCLUSION: No significant change mild parenchymal opacities of the left lung. Duy Skelton MD Liver Ultrasound 03/18/16 0000 Signed Impressions: Service Date/Time: Friday, March 18, 2016 17:01 - CONCLUSION: Ultrasound appearance of the liver and other right upper quadrant structures is within normal limits. Duy Skelton MD Head CT 03/09/16 0600 Signed Impressions: Service Date/Time: Wednesday, March 09, 2016 04:21 - CONCLUSION: 1. Mild improvement of the cerebral edema in the left cerebral hemisphere. 2. Otherwise , no other new or significant changes. Alli Jj MD Head CTA 02/16/16 0000 Signed Impressions: Service Date/Time: Tuesday, February 16, 2016 04:31 - CONCLUSION: I do not see an etiology for the patient's cerebellar hemorrhage on the right. Small supratentorial vessels in a 65-year-old. Etiology of this finding is not apparent. Trace subdural blood and subarachnoid blood persist over both convexities. Earl Gaitan MD FACR Cervical Spine CT 02/15/16 0445 Signed Impressions: Service Date/Time: January 04:57 - CONCLUSION: 1. Slight neural foramina compromise bilateral C4-5 and C5-6 in addition to bilateral lateral recess compromise at these levels and no significant thecal sac stenosis. 2. There is also slight neural foramina compromise right C3-C4. 3. Nonspecific lucencies in the spine may be osteoporotic changes, however myeloma is difficult to exclude. Ariadne Feng MD Objective Remarks no distress awake and alert lungs no rales or wheezes regular rhythm abdomen- soft, good bowel sound previous trach and PEG site- wound- healed extremities no edema gait steady Procedures 02/14 with right frontal bur hole and left subclavian line placement 02/15 with right occipital craniectomy with SDH evacuation 02/20 tracheostomy and PEG placement 02/25 left frontal temporoparietal decompressive craniotomy 03/06 PICC 03/29 bone flap replacement Date of Insertion: Apr 10, 2016 Date of Removal: Apr 22, 2016 Date of Insertion: Mar 06, 2016 Line: PICC Side: Right Location: Antecubital A/P Problem List: (1) HTN (hypertension) ICD Code: I10 Status: Chronic (2) Traumatic brain injury ICD Code: S06.9X9A Status: Acute (3) Insomnia ICD Code: G47.00 Status: Acute (4) Urinary retention ICD Code: R33.9 Status: Resolved (5) Protein calorie malnutrition ICD Code: E46 Status: Acute Assessment and Plan 65-year-old male with: 1. S/P traumatic brain injury: Initial head CT with right occipital bone fracture along with intraparenchymal hemorrhage, bilateral subdural hematomas, and subarachnoid hemorrhages. Patient is status post right frontal bur hole, right occipital craniectomy with SDH evacuation, PEG placement, left frontal temporoparietal decompressive craniotomy, and subsequent bone flap replacement. Neurosurgery has signed off. - Discharged from PT/speech therapy/occupational therapy as patient has reached maximum benefit here - Keppra bid for seizure prophylaxis 2. Protein Calorie malnutrition: Initially requiring PEG tube, however patient had been eating well and PEG was removed 05/25. Tolerating diet. 3. HTN: Chronic- some SBPs in the 8-s Decrease Metoprolol to 12.5 mg po bid - with hold parameter DC Lisinopril 4. Urinary retention: Resolved. [place] removed 04/22 5. DVT prophylaxis: Lovenox subcutaneous.- will DC= patient up and ambulating very well- and stays active CM for DC planning- [facility] willing to take him - awaiting paper works Problem Qualifiers (1) HTN (hypertension): Qualified Code: I10 - Essential hypertension Abdullahi Cerda MD Jul 09, 2016 10:46
[2016-07-09 12:10] VITALS: BP 110/80; PULSE 98; RESP 18; TEMP 95.5; O2SAT 97
[2016-07-09 16:00] VITALS: BP 125/80; PULSE 70; RESP 17; TEMP 96.4; O2SAT 98
[2016-07-09 20:00] VITALS: BP 124/81; PULSE 79; RESP 18; TEMP 96.1; O2SAT 99
[2016-07-10 03:08] VITALS: BP 129/83; PULSE 60; RESP 16; TEMP 96.9; O2SAT 99
[2016-07-10 08:00] VITALS: BP 129/88; PULSE 79; RESP 20; TEMP 96.6; O2SAT 99
[2016-07-10] MEDS: levETIRAcetam 500 MG TAB PO SCH ×2 (08:17→20:31)
[2016-07-10] MEDS: METOPROLOL TARTRATE 25 MG TAB PO SCH ×2 (08:18→20:30)
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
[2016-07-10 20:00] VITALS: BP 126/89; PULSE 77; RESP 16; TEMP 96.9; O2SAT 98
[2016-07-11] MEDS: METOPROLOL TARTRATE 25 MG TAB PO SCH ×2 (07:56→20:57)
[2016-07-11] MEDS: levETIRAcetam 500 MG TAB PO SCH ×2 (07:56→20:57)
[2016-07-11 08:00] VITALS: BP 129/78; PULSE 69; RESP 20; TEMP 96.9; O2SAT 98
--- NOTE | 2016-07-11 10:34 | HHI.PR ---
Subjective Remarks Patient admits to headaches in the morning but has no other acute complaints. Objective Vitals Vital Signs Date Time Temp Pulse Resp B/P Pulse Ox O2 Delivery O2 Flow Rate FiO2 07/11/16 08:00 96.9 69 20 129/78 98 07/10/16 20:00 96.9 77 16 126/89 98 I/O 07/10/16 07/10/16 07/10/16 07/11/16 07/11/16 07/11/16 07:00 15:00 23:00 07:00 15:00 23:00 Intake Total 150 ml 690 ml 520 ml 120 ml Output Total 375 ml Balance 150 ml 690 ml 145 ml 120 ml Intake Oral 150 ml 690 ml 520 ml 120 ml Output Urine Total 375 ml # Voids 1 3 1 1 # Bowel Movements 1 Imaging Last Impressions Chest X-Ray 03/27/16 0000 Signed Impressions: Service Date/Time: Sunday, March 27, 2016 03:46 - CONCLUSION: No significant change mild parenchymal opacities of the left lung. Duy Skelton MD Liver Ultrasound 03/18/16 0000 Signed Impressions: Service Date/Time: Friday, March 18, 2016 17:01 - CONCLUSION: Ultrasound appearance of the liver and other right upper quadrant structures is within normal limits. Duy Skelton MD Head CT 03/09/16 0600 Signed Impressions: Service Date/Time: Wednesday, March 09, 2016 04:21 - CONCLUSION: 1. Mild improvement of the cerebral edema in the left cerebral hemisphere. 2. Otherwise , no other new or significant changes. Alli Jj MD Head CTA 02/16/16 0000 Signed Impressions: Service Date/Time: Tuesday, February 16, 2016 04:31 - CONCLUSION: I do not see an etiology for the patient's cerebellar hemorrhage on the right. Small supratentorial vessels in a 65-year-old. Etiology of this finding is not apparent. Trace subdural blood and subarachnoid blood persist over both convexities. Earl Gaitan MD FACR Cervical Spine CT 02/15/16 0445 Signed Impressions: Service Date/Time: January 04:57 - CONCLUSION: 1. Slight neural foramina compromise bilateral C4-5 and C5-6 in addition to bilateral lateral recess compromise at these levels and no significant thecal sac stenosis. 2. There is also slight neural foramina compromise right C3-C4. 3. Nonspecific lucencies in the spine may be osteoporotic changes, however myeloma is difficult to exclude. Ariadne Feng MD Objective Remarks GENERAL: Well-nourished, well-developed patient witnessed to be ambulating around the room without issue. SKIN: Warm and dry. HEAD: Atraumatic. Normocephalic. EYES: Pupils equal and round, bilaterally reactive CARDIOVASCULAR: Regular rate and rhythm. RESPIRATORY: No accessory muscle use. Clear to auscultation. Breath sounds equal bilaterally. GASTROINTESTINAL: Abdomen soft, non-tender, nondistended. MUSCULOSKELETAL: No obvious deformities. NEUROLOGICAL: Awake and alert. Motor grossly within normal limits. Normal speech. PSYCHIATRIC: Appropriate mood and affect; insight and judgment normal. Procedures 02/14 with right frontal bur hole and left subclavian line placement 02/15 with right occipital craniectomy with SDH evacuation 02/20 tracheostomy and PEG placement 02/25 left frontal temporoparietal decompressive craniotomy 03/06 PICC 03/29 bone flap replacement Urinary Catheter: No Date of Insertion: Apr 10, 2016 Date of Removal: Apr 22, 2016 Vascular Central Line Catheter: No A/P Problem List: (1) HTN (hypertension) ICD Code: I10 Status: Chronic (2) Traumatic brain injury ICD Code: S06.9X9A Status: Acute (3) Insomnia ICD Code: G47.00 Status: Acute (4) Urinary retention ICD Code: R33.9 Status: Resolved (5) Protein calorie malnutrition ICD Code: E46 Status: Acute Assessment and Plan S/P traumatic brain injury: Initial head CT with right occipital bone fracture along with intraparenchymal hemorrhage, bilateral subdural hematomas, and subarachnoid hemorrhages. Patient is status post right frontal bur hole, right occipital craniectomy with SDH evacuation, left frontal temporoparietal decompressive craniotomy, and subsequent bone flap replacement. Neurosurgery has signed off. Discharged from PT/speech therapy/occupational therapy as patient has reached maximum benefit here Keppra bid for seizure prophylaxis Hypertension: Blood pressure stable, blood pressure continue remains stable may be able to discontinue medications altogether Metoprolol 12.5 mg every 12 hours Protein Calorie malnutrition: Initially requiring PEG tube, however patient had been eating well and PEG was removed 05/25. Continue current diet DVT prophylaxis: Patient is ambulating well, low risk Discharge Planning Accepted at [facility], pending financials. Problem Qualifiers (1) HTN (hypertension): Qualified Code: I10 - Essential hypertension Christina Hoff Jul 11, 2016 10:34 Stephany Cameron MD Jul 11, 2016 16:23
[2016-07-11 20:00] VITALS: BP 135/89; PULSE 75; RESP 18; TEMP 96.5; O2SAT 95
[2016-07-12 08:00] VITALS: BP 120/68; PULSE 64; RESP 18; TEMP 97.3; O2SAT 96
[2016-07-12] MEDS: levETIRAcetam 500 MG TAB PO SCH ×2 (09:06→20:32)
[2016-07-12] MEDS: METOPROLOL TARTRATE 25 MG TAB PO SCH ×2 (09:06→20:32)
--- NOTE | 2016-07-12 10:27 | HHI.PR ---
Subjective Remarks No acute complaints. Objective Vitals Vital Signs Date Time Temp Pulse Resp B/P Pulse Ox O2 Delivery O2 Flow Rate FiO2 07/12/16 08:00 97.3 64 18 120/68 96 07/11/16 20:00 96.5 75 18 135/89 95 I/O 07/11/16 07/11/16 07/11/16 07/12/16 07/12/16 07/12/16 07:00 15:00 23:00 07:00 15:00 23:00 Intake Total 120 ml 960 ml 710 ml 120 ml Balance 120 ml 960 ml 710 ml 120 ml Intake Oral 120 ml 960 ml 710 ml 120 ml # Voids 1 4 3 2 # Bowel Movements 1 Imaging Last Impressions Chest X-Ray 03/27/16 0000 Signed Impressions: Service Date/Time: Sunday, March 27, 2016 03:46 - CONCLUSION: No significant change mild parenchymal opacities of the left lung. Duy Skelton MD Liver Ultrasound 03/18/16 0000 Signed Impressions: Service Date/Time: Friday, March 18, 2016 17:01 - CONCLUSION: Ultrasound appearance of the liver and other right upper quadrant structures is within normal limits. Duy Skelton MD Head CT 03/09/16 0600 Signed Impressions: Service Date/Time: Wednesday, March 09, 2016 04:21 - CONCLUSION: 1. Mild improvement of the cerebral edema in the left cerebral hemisphere. 2. Otherwise , no other new or significant changes. Alli Jj MD Head CTA 02/16/16 0000 Signed Impressions: Service Date/Time: Tuesday, February 16, 2016 04:31 - CONCLUSION: I do not see an etiology for the patient's cerebellar hemorrhage on the right. Small supratentorial vessels in a 65-year-old. Etiology of this finding is not apparent. Trace subdural blood and subarachnoid blood persist over both convexities. Earl Gaitan MD FACR Cervical Spine CT 02/15/16 0445 Signed Impressions: Service Date/Time: January 04:57 - CONCLUSION: 1. Slight neural foramina compromise bilateral C4-5 and C5-6 in addition to bilateral lateral recess compromise at these levels and no significant thecal sac stenosis. 2. There is also slight neural foramina compromise right C3-C4. 3. Nonspecific lucencies in the spine may be osteoporotic changes, however myeloma is difficult to exclude. Ariadne Feng MD Objective Remarks GENERAL: Well-nourished, well-developed patient in no apparent distress. SKIN: Warm and dry. HEAD: Atraumatic. Normocephalic. EYES: Pupils equal and round. CARDIOVASCULAR: Regular rate and rhythm. RESPIRATORY: No accessory muscle use. Clear to auscultation. Breath sounds equal bilaterally. GASTROINTESTINAL: Abdomen soft, non-tender, nondistended. NEUROLOGICAL: Awake and alert. Oriented to hospital and city but states the year is "64". Motor grossly within normal limits. Normal speech. PSYCHIATRIC: Appropriate mood and affect. Procedures 02/14 with right frontal bur hole and left subclavian line placement 02/15 with right occipital craniectomy with SDH evacuation 02/20 tracheostomy and PEG placement 02/25 left frontal temporoparietal decompressive craniotomy 03/06 PICC 03/29 bone flap replacement Urinary Catheter: No Date of Insertion: Apr 10, 2016 Date of Removal: Apr 22, 2016 Vascular Central Line Catheter: No A/P Problem List: (1) HTN (hypertension) ICD Code: I10 Status: Chronic (2) Traumatic brain injury ICD Code: S06.9X9A Status: Acute (3) Insomnia ICD Code: G47.00 Status: Acute (4) Urinary retention ICD Code: R33.9 Status: Resolved (5) Protein calorie malnutrition ICD Code: E46 Status: Acute Assessment and Plan S/P traumatic brain injury: Initial head CT with right occipital bone fracture along with intraparenchymal hemorrhage, bilateral subdural hematomas, and subarachnoid hemorrhages. Patient is status post right frontal bur hole, right occipital craniectomy with SDH evacuation, left frontal temporoparietal decompressive craniotomy, and subsequent bone flap replacement. Neurosurgery has signed off. Discharged from PT/speech therapy/occupational therapy as patient has reached maximum benefit here Keppra bid for seizure prophylaxis Hypertension: Blood pressure stable, if blood pressure continues to remain stable may be able to discontinue medications altogether Metoprolol 12.5 mg every 12 hours Protein Calorie malnutrition: Initially requiring PEG tube, however patient had been eating well and PEG was removed 05/25. Continue current diet; patient states he does not like Ensure. DVT prophylaxis: Patient is ambulating well, low risk Discharge Planning Accepted at [facility], pending financials. Problem Qualifiers (1) HTN (hypertension): Qualified Code: I10 - Essential hypertension Christina Hoff Jul 12, 2016 10:26 Stephany Cameron MD Jul 12, 2016 15:19
[2016-07-12 20:00] VITALS: BP 143/90; PULSE 68; RESP 20; TEMP 96.3; O2SAT 98
[2016-07-13 08:00] VITALS: BP 142/94; PULSE 72; RESP 16; TEMP 98; O2SAT 98
[2016-07-13] MEDS: levETIRAcetam 500 MG TAB PO SCH ×2 (08:45→20:38)
[2016-07-13] MEDS: METOPROLOL TARTRATE 25 MG TAB PO SCH ×2 (08:45→20:38)
--- NOTE | 2016-07-13 08:49 | HHI.PR ---
Subjective Remarks No acute complaints. No change in clinical status. Objective Vitals Vital Signs Date Time Temp Pulse Resp B/P Pulse Ox O2 Delivery O2 Flow Rate FiO2 07/12/16 20:00 96.3 68 20 143/90 98 I/O 07/12/16 07/12/16 07/12/16 07/13/16 07/13/16 07/13/16 07:00 15:00 23:00 07:00 15:00 23:00 Intake Total 120 ml 1360 ml 250 ml Balance 120 ml 1360 ml 250 ml Intake Oral 120 ml 1360 ml 250 ml # Voids 2 4 2 Objective Remarks GENERAL: Well-nourished, well-developed patient in no apparent distress. SKIN: Warm and dry. HEAD: Atraumatic. Normocephalic. CARDIOVASCULAR: Regular rate and rhythm. RESPIRATORY: No accessory muscle use. Clear to auscultation. Breath sounds equal bilaterally. GASTROINTESTINAL: Abdomen soft, non-tender, nondistended. NEUROLOGICAL: Awake and alert. He is partially oriented. States a number when asked the month. Motor grossly within normal limits. Normal speech. PSYCHIATRIC: Appropriate mood and affect. Procedures 02/14 with right frontal bur hole and left subclavian line placement 02/15 with right occipital craniectomy with SDH evacuation 02/20 tracheostomy and PEG placement 02/25 left frontal temporoparietal decompressive craniotomy 03/06 PICC 03/29 bone flap replacement Urinary Catheter: No Date of Insertion: Apr 10, 2016 Date of Removal: Apr 22, 2016 Vascular Central Line Catheter: No A/P Problem List: (1) HTN (hypertension) ICD Code: I10 Status: Chronic (2) Traumatic brain injury ICD Code: S06.9X9A Status: Acute (3) Insomnia ICD Code: G47.00 Status: Acute (4) Urinary retention ICD Code: R33.9 Status: Resolved (5) Protein calorie malnutrition ICD Code: E46 Status: Acute Assessment and Plan S/P traumatic brain injury: Initial head CT with right occipital bone fracture along with intraparenchymal hemorrhage, bilateral subdural hematomas, and subarachnoid hemorrhages. Patient is status post right frontal bur hole, right occipital craniectomy with SDH evacuation, left frontal temporoparietal decompressive craniotomy, and subsequent bone flap replacement. Neurosurgery has signed off. Discharged from PT/speech therapy/occupational therapy as patient has reached maximum benefit here Keppra bid for seizure prophylaxis Hypertension: BP 142/94 this morning, mildly elevated last night as well, but previously well controlled. Will closely monitor. Continue Metoprolol 12.5 mg every 12 hours Protein Calorie malnutrition: Initially requiring PEG tube, however patient had been eating well and PEG was removed 05/25. Continue current diet; patient states he does not like Ensure. DVT prophylaxis: Patient is ambulating well, low risk Discharge Planning Accepted at [facility], pending financials. Problem Qualifiers (1) HTN (hypertension): Qualified Code: I10 - Essential hypertension Christina Hoff Jul 13, 2016 08:48
[2016-07-13] MEDS: diphenhydrAMINE HCL 50 MG CAP PO PRN (20:41)
[2016-07-13 20:42] VITALS: BP 128/75; PULSE 65; RESP 16; TEMP 96.2; O2SAT 98
[2016-07-14 08:00] VITALS: BP 118/83; PULSE 74; RESP 20; TEMP 98.2; O2SAT 98
[2016-07-14] MEDS: METOPROLOL TARTRATE 25 MG TAB PO SCH ×2 (08:46→20:26)
[2016-07-14] MEDS: levETIRAcetam 500 MG TAB PO SCH ×2 (08:46→20:26)
--- NOTE | 2016-07-14 09:41 | HHI.PR ---
Subjective Remarks No acute complaints. Objective Vitals Vital Signs Date Time Temp Pulse Resp B/P Pulse Ox O2 Delivery O2 Flow Rate FiO2 07/14/16 08:00 98.2 74 20 118/83 98 07/13/16 20:42 96.2 65 16 128/75 98 I/O 07/13/16 07/13/16 07/13/16 07/14/16 07/14/16 07/14/16 07:00 15:00 23:00 07:00 15:00 23:00 Intake Total 250 ml 1650 ml 250 ml Balance 250 ml 1650 ml 250 ml Intake Oral 250 ml 1650 ml 250 ml # Voids 2 5 1 # Bowel Movements 1 Objective Remarks GENERAL: Well-nourished, well-developed patient in no apparent distress. SKIN: Warm and dry. Significant dandruff in the hair. HEAD: Atraumatic. Normocephalic. CARDIOVASCULAR: Regular rate and rhythm. RESPIRATORY: No accessory muscle use. Clear to auscultation. Breath sounds equal bilaterally. GASTROINTESTINAL: Abdomen soft, non-tender, nondistended. NEUROLOGICAL: Awake and alert. Motor grossly within normal limits. Normal speech. PSYCHIATRIC: Appropriate mood and affect. Procedures 02/14 with right frontal bur hole and left subclavian line placement 02/15 with right occipital craniectomy with SDH evacuation 02/20 tracheostomy and PEG placement 02/25 left frontal temporoparietal decompressive craniotomy 03/06 PICC 03/29 bone flap replacement Urinary Catheter: No Date of Insertion: Apr 10, 2016 Date of Removal: Apr 22, 2016 Vascular Central Line Catheter: No A/P Problem List: (1) HTN (hypertension) ICD Code: I10 Status: Chronic (2) Traumatic brain injury ICD Code: S06.9X9A Status: Acute (3) Insomnia ICD Code: G47.00 Status: Acute (4) Urinary retention ICD Code: R33.9 Status: Resolved (5) Protein calorie malnutrition ICD Code: E46 Status: Acute Assessment and Plan S/P traumatic brain injury: Initial head CT with right occipital bone fracture along with intraparenchymal hemorrhage, bilateral subdural hematomas, and subarachnoid hemorrhages. Patient is status post right frontal bur hole, right occipital craniectomy with SDH evacuation, left frontal temporoparietal decompressive craniotomy, and subsequent bone flap replacement. Neurosurgery has signed off. Discharged from PT/speech therapy/occupational therapy as patient has reached maximum benefit here Keppra bid for seizure prophylaxis Hypertension: BP wnl this morning. Will closely monitor. Continue Metoprolol 12.5 mg every 12 hours Protein Calorie malnutrition: Initially requiring PEG tube, however patient had been eating well and PEG was removed 05/25. Continue current diet; patient states he does not like Ensure. DVT prophylaxis: Patient is ambulating well, low risk Discharge Planning Accepted at [facility], pending financials. Problem Qualifiers (1) HTN (hypertension): Qualified Code: I10 - Essential hypertension Christina Hoff Jul 14, 2016 09:41
[2016-07-14 20:00] VITALS: BP 119/78; PULSE 69; RESP 16; TEMP 96.8; O2SAT 97
[2016-07-14] MEDS: diphenhydrAMINE HCL 50 MG CAP PO PRN (20:26)
[2016-07-15] MEDS: SELENIUM SULFIDE 1% SHAMPOO 207 ML BOTTLE TOPICAL SCH (08:22)
[2016-07-15] MEDS: levETIRAcetam 500 MG TAB PO SCH ×2 (08:22→20:09)
[2016-07-15] MEDS: METOPROLOL TARTRATE 25 MG TAB PO SCH ×2 (08:22→20:09)
--- NOTE | 2016-07-15 09:58 | HHI.PR ---
Subjective Remarks Patient states he is just waking up. He has no acute complaints. Objective Vitals Vital Signs Date Time Temp Pulse Resp B/P Pulse Ox O2 Delivery O2 Flow Rate FiO2 07/14/16 20:00 96.8 69 16 119/78 97 I/O 07/14/16 07/14/16 07/14/16 07/15/16 07/15/16 07/15/16 07:00 15:00 23:00 07:00 15:00 23:00 Intake Total 250 ml 630 ml 760 ml 200 ml Output Total 3 ml Balance 250 ml 627 ml 760 ml 200 ml Intake Oral 250 ml 630 ml 760 ml 200 ml Output Urine Total 3 ml # Voids 1 4 1 Objective Remarks GENERAL: Well-nourished, well-developed patient in no apparent distress. SKIN: Warm and dry. No erythema of the scalp. HEAD: Atraumatic. Normocephalic. CARDIOVASCULAR: Regular rate and rhythm. RESPIRATORY: No accessory muscle use. Clear to auscultation. Breath sounds equal bilaterally. GASTROINTESTINAL: Abdomen soft, non-tender, nondistended. NEUROLOGICAL: Awake and alert. Motor grossly within normal limits. Normal speech. PSYCHIATRIC: Appropriate mood and affect. Procedures 02/14 with right frontal bur hole and left subclavian line placement 02/15 with right occipital craniectomy with SDH evacuation 02/20 tracheostomy and PEG placement 02/25 left frontal temporoparietal decompressive craniotomy 03/06 PICC 03/29 bone flap replacement Urinary Catheter: No Date of Insertion: Apr 10, 2016 Date of Removal: Apr 22, 2016 Vascular Central Line Catheter: No A/P Problem List: (1) HTN (hypertension) ICD Code: I10 Status: Chronic (2) Traumatic brain injury ICD Code: S06.9X9A Status: Acute (3) Insomnia ICD Code: G47.00 Status: Acute (4) Urinary retention ICD Code: R33.9 Status: Resolved (5) Protein calorie malnutrition ICD Code: E46 Status: Acute Assessment and Plan S/P traumatic brain injury: Initial head CT with right occipital bone fracture along with intraparenchymal hemorrhage, bilateral subdural hematomas, and subarachnoid hemorrhages. Patient is status post right frontal bur hole, right occipital craniectomy with SDH evacuation, left frontal temporoparietal decompressive craniotomy, and subsequent bone flap replacement. Neurosurgery has signed off. Discharged from PT/speech therapy/occupational therapy as patient has reached maximum benefit here Keppra bid for seizure prophylaxis Hypertension: Controlled. Will closely monitor. Continue Metoprolol 12.5 mg every 12 hours Protein Calorie malnutrition: Initially requiring PEG tube, however patient had been eating well and PEG was removed 05/25. Continue current diet; patient states he does not like Ensure. DVT prophylaxis: Patient is ambulating well, low risk Discharge Planning Accepted at [facility], pending financials. Problem Qualifiers (1) HTN (hypertension): Qualified Code: I10 - Essential hypertension Christina Hoff Jul 15, 2016 09:58
[2016-07-15 20:00] VITALS: BP 120/82; PULSE 71; RESP 18; TEMP 97.1; O2SAT 98
[2016-07-15] MEDS: diphenhydrAMINE HCL 50 MG CAP PO PRN (20:09)
[2016-07-16 08:00] VITALS: BP 101/56; PULSE 71; RESP 16; TEMP 96.5; O2SAT 99
[2016-07-16] MEDS: METOPROLOL TARTRATE 25 MG TAB PO SCH ×2 (08:32→20:30)
[2016-07-16] MEDS: SELENIUM SULFIDE 1% SHAMPOO 207 ML BOTTLE TOPICAL SCH (08:32)
[2016-07-16] MEDS: levETIRAcetam 500 MG TAB PO SCH ×2 (08:32→20:30)
--- NOTE | 2016-07-16 10:51 | HHI.PR ---
Subjective Remarks Patient seen and examined today. Patient denies any new complaints. No change in clinical status. Objective Vitals Vital Signs Date Time Temp Pulse Resp B/P Pulse Ox O2 Delivery O2 Flow Rate FiO2 07/16/16 08:00 96.5 71 16 101/56 99 07/15/16 20:00 97.1 71 18 120/82 98 I/O 07/15/16 07/15/16 07/15/16 07/16/16 07/16/16 07/16/16 07:00 15:00 23:00 07:00 15:00 23:00 Intake Total 200 ml 765 ml 480 ml Balance 200 ml 765 ml 480 ml Intake Oral 200 ml 765 ml 480 ml # Voids 1 3 2 Objective Remarks GENERAL: Well-developed, well-nourished, in no acute distress. alert and orientated HEENT: Head is normocephalic without any lesions or masses noted. Facial features are symmetric. Eyes: Pupils equal round reactive to light. Extraocular muscles are intact. Conjunctivae were clear. NECK: Supple without any masses. Trachea midline no deviation. No JVD CARDIAC: Regular rhythm, regular rate. S1/S2 are heard. No murmurs gallops or rubs. LUNGS: Clear to auscultation bilaterally. No wheeze, rhonchi or rales. No use of accessory muscles on inspiration or expiration. ABDOMEN: Soft, nontender. Nondistended. Bowel sounds heard in all 4 quadrants. No organomegaly or masses. Negative rebound, negative guarding EXTREMITIES: No edema, pulses are equal bilaterally. No cyanosis or clubbing NEUROLOGY: Mood and affect appear appropriate. Cranial nerves II through XII grossly intact. Moving all extremities, speech is clear Procedures 02/14 with right frontal bur hole and left subclavian line placement 02/15 with right occipital craniectomy with SDH evacuation 02/20 tracheostomy and PEG placement 02/25 left frontal temporoparietal decompressive craniotomy 03/06 PICC 03/29 bone flap replacement Urinary Catheter: No Date of Insertion: Apr 10, 2016 Date of Removal: Apr 22, 2016 Vascular Central Line Catheter: No A/P Assessment and Plan S/P traumatic brain injury: Initial head CT with right occipital bone fracture along with intraparenchymal hemorrhage, bilateral subdural hematomas, and subarachnoid hemorrhages. Patient is status post right frontal bur hole, right occipital craniectomy with SDH evacuation, left frontal temporoparietal decompressive craniotomy, and subsequent bone flap replacement. Neurosurgery has signed off. Discharged from PT/speech therapy/occupational therapy as patient has reached maximum benefit Keppra bid for seizure prophylaxis Hypertension: Blood pressure stable, blood pressure continue remains stable may be able to discontinue medications altogether Metoprolol 12.5 mg every 12 hours Protein Calorie malnutrition: Initially requiring PEG tube, however patient had been eating well and PEG was removed 05/25. Continue current diet DVT prophylaxis: Patient is ambulating well, low risk Discharge Planning Discharge planning per case management, daily patient has been accepted at the [facility], however awaiting financials to be sorted out. Kaushik Mcguire Jul 16, 2016 10:51
[2016-07-16 20:00] VITALS: BP 136/84; PULSE 68; RESP 16; TEMP 98.5; O2SAT 96
[2016-07-16] MEDS: diphenhydrAMINE HCL 50 MG CAP PO PRN (20:31)
[2016-07-17 08:00] VITALS: BP 126/84; PULSE 62; RESP 18; TEMP 97.2; O2SAT 98
[2016-07-17] MEDS: levETIRAcetam 500 MG TAB PO SCH ×2 (08:41→20:49)
[2016-07-17] MEDS: METOPROLOL TARTRATE 25 MG TAB PO SCH ×2 (08:48→20:49)
[2016-07-17] MEDS: SELENIUM SULFIDE 1% SHAMPOO 207 ML BOTTLE TOPICAL SCH (08:50)
--- NOTE | 2016-07-17 08:50 | HHI.PR ---
Subjective Remarks Patient seen and examined today. Patient denies any new complaints. No change in clinical status. Awaiting case management for discharge planning Objective Vitals Vital Signs Date Time Temp Pulse Resp B/P Pulse Ox O2 Delivery O2 Flow Rate FiO2 07/17/16 08:00 97.2 62 18 126/84 98 07/16/16 20:00 98.5 68 16 136/84 96 I/O 07/16/16 07/16/16 07/16/16 07/17/16 07/17/16 07/17/16 07:00 15:00 23:00 07:00 15:00 23:00 Intake Total 480 ml 1300 ml 200 ml Balance 480 ml 1300 ml 200 ml Intake Oral 480 ml 1300 ml 200 ml # Voids 2 7 1 Objective Remarks GENERAL: Well-developed, well-nourished, in no acute distress. alert and orientated to person, month, year, place HEENT: Head is normocephalic without any lesions or masses noted. Facial features are symmetric. Eyes: Pupils equal round reactive to light. Extraocular muscles are intact. Conjunctivae were clear. NECK: Supple without any masses. Trachea midline no deviation. No JVD CARDIAC: Regular rhythm, regular rate. S1/S2 are heard. No murmurs gallops or rubs. LUNGS: Clear to auscultation bilaterally. No wheeze, rhonchi or rales. No use of accessory muscles on inspiration or expiration. ABDOMEN: Soft, nontender. Nondistended. Bowel sounds heard in all 4 quadrants. No organomegaly or masses. Negative rebound, negative guarding EXTREMITIES: No edema, pulses are equal bilaterally. No cyanosis or clubbing NEUROLOGY: Mood and affect appear appropriate. Cranial nerves II through XII grossly intact. Moving all extremities, speech is clear Procedures 02/14 with right frontal bur hole and left subclavian line placement 02/15 with right occipital craniectomy with SDH evacuation 02/20 tracheostomy and PEG placement 02/25 left frontal temporoparietal decompressive craniotomy 03/06 PICC 03/29 bone flap replacement Urinary Catheter: No Date of Insertion: Apr 10, 2016 Date of Removal: Apr 22, 2016 Vascular Central Line Catheter: No A/P Assessment and Plan S/P traumatic brain injury: Initial head CT with right occipital bone fracture along with intraparenchymal hemorrhage, bilateral subdural hematomas, and subarachnoid hemorrhages. Patient is status post right frontal bur hole, right occipital craniectomy with SDH evacuation, left frontal temporoparietal decompressive craniotomy, and subsequent bone flap replacement. Neurosurgery has signed off. Discharged from PT/speech therapy/occupational therapy as patient has reached maximum benefit Keppra bid for seizure prophylaxis Hypertension: Blood pressure stable, blood pressure continue remains stable may be able to discontinue medications altogether Metoprolol 12.5 mg every 12 hours Protein Calorie malnutrition: Initially requiring PEG tube, however patient had been eating well and PEG was removed 05/25. Continue current diet DVT prophylaxis: Patient is ambulating well, low risk Discharge Planning Discharge planning per case management, daily patient has been accepted at the [facility], however awaiting financials to be sorted out. Kaushik Mcguire Jul 17, 2016 08:50
[2016-07-17 20:00] VITALS: BP 140/81; PULSE 74; RESP 20; TEMP 96; O2SAT 98
[2016-07-17] MEDS: diphenhydrAMINE HCL 50 MG CAP PO PRN (20:52)
[2016-07-18 08:00] VITALS: BP 123/81; PULSE 63; RESP 16; TEMP 98; O2SAT 95
[2016-07-18] MEDS: SELENIUM SULFIDE 1% SHAMPOO 207 ML BOTTLE TOPICAL SCH (09:00)
[2016-07-18] MEDS: METOPROLOL TARTRATE 25 MG TAB PO SCH ×2 (09:05→21:13)
[2016-07-18] MEDS: levETIRAcetam 500 MG TAB PO SCH ×2 (09:05→21:13)
--- NOTE | 2016-07-18 09:56 | HHI.PR ---
Subjective Remarks Patient seen and examined today. Patient denies any new complaints. Awaiting acceptance at the [facility] Objective Vitals Vital Signs Date Time Temp Pulse Resp B/P Pulse Ox O2 Delivery O2 Flow Rate FiO2 07/18/16 08:00 98.0 63 16 123/81 95 07/17/16 20:00 96.0 74 20 140/81 98 I/O 07/17/16 07/17/16 07/17/16 07/18/16 07/18/16 07/18/16 07:00 15:00 23:00 07:00 15:00 23:00 Intake Total 200 ml 600 ml 240 ml Balance 200 ml 600 ml 240 ml Intake Oral 200 ml 600 ml 240 ml # Voids 1 3 1 3 # Bowel Movements 0 Objective Remarks GENERAL: Well-developed, well-nourished, in no acute distress. alert and orientated to person, month, year, place HEENT: Head is normocephalic without any lesions or masses noted. Facial features are symmetric. Eyes: Pupils equal round reactive to light. Extraocular muscles are intact. Conjunctivae were clear. NECK: Supple without any masses. Trachea midline no deviation. No JVD CARDIAC: Regular rhythm, regular rate. S1/S2 are heard. No murmurs gallops or rubs. LUNGS: Clear to auscultation bilaterally. No wheeze, rhonchi or rales. No use of accessory muscles on inspiration or expiration. ABDOMEN: Soft, nontender. Nondistended. Bowel sounds heard in all 4 quadrants. No organomegaly or masses. Negative rebound, negative guarding EXTREMITIES: No edema, pulses are equal bilaterally. No cyanosis or clubbing NEUROLOGY: Mood and affect appear appropriate. Cranial nerves II through XII grossly intact. Moving all extremities, speech is clear Procedures 02/14 with right frontal bur hole and left subclavian line placement 02/15 with right occipital craniectomy with SDH evacuation 02/20 tracheostomy and PEG placement 02/25 left frontal temporoparietal decompressive craniotomy 03/06 PICC 03/29 bone flap replacement Urinary Catheter: No Date of Insertion: Apr 10, 2016 Date of Removal: Apr 22, 2016 Vascular Central Line Catheter: No A/P Assessment and Plan S/P traumatic brain injury: Initial head CT with right occipital bone fracture along with intraparenchymal hemorrhage, bilateral subdural hematomas, and subarachnoid hemorrhages. Patient is status post right frontal bur hole, right occipital craniectomy with SDH evacuation, left frontal temporoparietal decompressive craniotomy, and subsequent bone flap replacement. Neurosurgery has signed off. Discharged from PT/speech therapy/occupational therapy as patient has reached maximum benefit Keppra bid for seizure prophylaxis Hypertension: Blood pressure stable, systolic blood pressure [id number] Metoprolol 12.5 mg every 12 hours Protein Calorie malnutrition: Initially requiring PEG tube, however patient had been eating well and PEG was removed 05/25. Continue current diet DVT prophylaxis: Patient is ambulating well, low risk Discharge Planning Discharge planning per case management, daily patient has been accepted at the [facility], however awaiting financials to be sorted out. Kaushik Mcguire Jul 18, 2016 09:56
[2016-07-18 20:13] VITALS: BP 123/74; PULSE 67; RESP 14; TEMP 97.8; O2SAT 97
[2016-07-18] MEDS: diphenhydrAMINE HCL 50 MG CAP PO PRN (21:13)
[2016-07-19] MEDS: levETIRAcetam 500 MG TAB PO SCH ×2 (08:51→22:21)
[2016-07-19] MEDS: METOPROLOL TARTRATE 25 MG TAB PO SCH ×2 (08:52→22:21)
[2016-07-19] MEDS: SELENIUM SULFIDE 1% SHAMPOO 207 ML BOTTLE TOPICAL SCH (08:53)
--- NOTE | 2016-07-19 08:55 | HHI.PR ---
Subjective Remarks Patient seen and examined today. Patient denies any new complaints. Still awaiting a paperwork for placement Objective Vitals Vital Signs Date Time Temp Pulse Resp B/P Pulse Ox O2 Delivery O2 Flow Rate FiO2 07/18/16 20:13 97.8 67 14 123/74 97 I/O 07/18/16 07/18/16 07/18/16 07/19/16 07/19/16 07/19/16 07:00 15:00 23:00 07:00 15:00 23:00 Intake Total 240 ml 1250 ml 500 ml Balance 240 ml 1250 ml 500 ml Intake Oral 240 ml 1250 ml 500 ml # Voids 3 7 3 # Bowel Movements 0 0 0 Objective Remarks GENERAL: Well-developed, well-nourished, in no acute distress. alert and orientated to person, month, year, place HEENT: Head is normocephalic without any lesions or masses noted. Facial features are symmetric. Eyes: Pupils equal round reactive to light. Extraocular muscles are intact. Conjunctivae were clear. NECK: Supple without any masses. Trachea midline no deviation. No JVD CARDIAC: Regular rhythm, regular rate. S1/S2 are heard. No murmurs gallops or rubs. LUNGS: Clear to auscultation bilaterally. No wheeze, rhonchi or rales. No use of accessory muscles on inspiration or expiration. ABDOMEN: Soft, nontender. Nondistended. Bowel sounds heard in all 4 quadrants. No organomegaly or masses. Negative rebound, negative guarding EXTREMITIES: No edema, pulses are equal bilaterally. No cyanosis or clubbing NEUROLOGY: Mood and affect appear appropriate. Cranial nerves II through XII grossly intact. Moving all extremities, speech is clear Procedures 02/14 with right frontal bur hole and left subclavian line placement 02/15 with right occipital craniectomy with SDH evacuation 02/20 tracheostomy and PEG placement 02/25 left frontal temporoparietal decompressive craniotomy 03/06 PICC 03/29 bone flap replacement Urinary Catheter: No Date of Insertion: Apr 10, 2016 Date of Removal: Apr 22, 2016 Vascular Central Line Catheter: No A/P Assessment and Plan S/P traumatic brain injury: Initial head CT with right occipital bone fracture along with intraparenchymal hemorrhage, bilateral subdural hematomas, and subarachnoid hemorrhages. Patient is status post right frontal bur hole, right occipital craniectomy with SDH evacuation, left frontal temporoparietal decompressive craniotomy, and subsequent bone flap replacement. Neurosurgery has signed off. Discharged from PT/speech therapy/occupational therapy as patient has reached maximum benefit Keppra bid for seizure prophylaxis Hypertension: Blood pressure stable, systolic blood pressure [id number] Metoprolol 12.5 mg every 12 hours Protein Calorie malnutrition: Initially requiring PEG tube, however patient had been eating well and PEG was removed 05/25. Continue current diet DVT prophylaxis: Patient is ambulating well, low risk Discharge Planning Discharge planning per case management, daily patient has been accepted at the [facility], however awaiting financials to be sorted out. Kaushik Mcguire Jul 19, 2016 08:55
[2016-07-19 10:01] VITALS: BP 120/70; PULSE 78; RESP 18; TEMP 98; O2SAT 98
[2016-07-19 20:00] VITALS: BP 119/73; PULSE 68; RESP 18; TEMP 97.9; O2SAT 97
[2016-07-20] MEDS: SELENIUM SULFIDE 1% SHAMPOO 207 ML BOTTLE TOPICAL SCH (07:52)
[2016-07-20] MEDS: METOPROLOL TARTRATE 25 MG TAB PO SCH ×2 (08:02→20:09)
[2016-07-20] MEDS: levETIRAcetam 500 MG TAB PO SCH ×2 (08:03→20:08)
[2016-07-20 08:22] VITALS: BP 124/81; PULSE 75; RESP 18; TEMP 97.9; O2SAT 95
--- NOTE | 2016-07-20 08:47 | HHI.PR ---
Subjective Remarks Patient seen and examined today. Patient denies any new complaints. No change in clinical status. Awaiting acceptance from nursing facility Objective Vitals Vital Signs Date Time Temp Pulse Resp B/P Pulse Ox O2 Delivery O2 Flow Rate FiO2 07/19/16 20:00 97.9 68 18 119/73 97 Manual Cuff/Auscultation 07/19/16 10:01 98.0 78 18 120/70 98 I/O 07/19/16 07/19/16 07/19/16 07/20/16 07/20/16 07/20/16 07:00 15:00 23:00 07:00 15:00 23:00 Intake Total 500 ml 0 ml 240 ml 0 ml Balance 500 ml 0 ml 240 ml 0 ml Intake Oral 500 ml 240 ml IV Total 0 ml 0 ml # Voids 3 2 # Bowel Movements 0 Objective Remarks GENERAL: Well-developed, well-nourished, in no acute distress. alert and orientated to person, month, year, place HEENT: Head is normocephalic without any lesions or masses noted. Facial features are symmetric. Eyes: Pupils equal round reactive to light. Extraocular muscles are intact. Conjunctivae were clear. NECK: Supple without any masses. Trachea midline no deviation. No JVD CARDIAC: Regular rhythm, regular rate. S1/S2 are heard. No murmurs gallops or rubs. LUNGS: Clear to auscultation bilaterally. No wheeze, rhonchi or rales. No use of accessory muscles on inspiration or expiration. ABDOMEN: Soft, nontender. Nondistended. Bowel sounds heard in all 4 quadrants. No organomegaly or masses. Negative rebound, negative guarding EXTREMITIES: No edema, pulses are equal bilaterally. No cyanosis or clubbing NEUROLOGY: Mood and affect appear appropriate. Cranial nerves II through XII grossly intact. Moving all extremities, speech is clear Procedures 02/14 with right frontal bur hole and left subclavian line placement 02/15 with right occipital craniectomy with SDH evacuation 02/20 tracheostomy and PEG placement 02/25 left frontal temporoparietal decompressive craniotomy 03/06 PICC 03/29 bone flap replacement Urinary Catheter: No Date of Insertion: Apr 10, 2016 Date of Removal: Apr 22, 2016 Vascular Central Line Catheter: No A/P Assessment and Plan S/P traumatic brain injury: Initial head CT with right occipital bone fracture along with intraparenchymal hemorrhage, bilateral subdural hematomas, and subarachnoid hemorrhages. Patient is status post right frontal bur hole, right occipital craniectomy with SDH evacuation, left frontal temporoparietal decompressive craniotomy, and subsequent bone flap replacement. Neurosurgery has signed off. Discharged from PT/speech therapy/occupational therapy as patient has reached maximum benefit Keppra bid for seizure prophylaxis Hypertension: Blood pressure stable, systolic blood pressure 119-140 Metoprolol 12.5 mg every 12 hours Protein Calorie malnutrition: Initially requiring PEG tube, however patient had been eating well and PEG was removed 05/25. Continue current diet DVT prophylaxis: Patient is ambulating well, low risk Discharge Planning Discharge planning per case management, daily patient has been accepted at the [facility], however awaiting financials to be sorted out. Kaushik Mcguire Jul 20, 2016 08:47
[2016-07-20 20:00] VITALS: BP 116/80; PULSE 74; RESP 20; TEMP 97.5; O2SAT 97
[2016-07-20] MEDS: diphenhydrAMINE HCL 50 MG CAP PO PRN (20:09)
--- NOTE | 2016-07-21 08:21 | HHI.PR ---
Subjective Remarks Patient seen and examined today. Patient denies any new complaints. Still awaiting for discharge planning Objective Vitals Vital Signs Date Time Temp Pulse Resp B/P Pulse Ox O2 Delivery O2 Flow Rate FiO2 07/20/16 20:00 97.5 74 20 116/80 97 07/20/16 08:22 97.9 75 18 124/81 95 I/O 07/20/16 07/20/16 07/20/16 07/21/16 07/21/16 07/21/16 07:00 15:00 23:00 07:00 15:00 23:00 Intake Total 240 ml 0 ml Output Total 550 ml Balance 240 ml 0 ml -550 ml Intake Oral 240 ml IV Total 0 ml Output Urine Total 550 ml # Voids 2 # Bowel Movements 0 Objective Remarks GENERAL: Well-developed, well-nourished, in no acute distress. alert and orientated to person, month, year, place HEENT: Head is normocephalic without any lesions or masses noted. Facial features are symmetric. Eyes: Pupils equal round reactive to light. Extraocular muscles are intact. Conjunctivae were clear. NECK: Supple without any masses. Trachea midline no deviation. No JVD CARDIAC: Regular rhythm, regular rate. S1/S2 are heard. No murmurs gallops or rubs. LUNGS: Clear to auscultation bilaterally. No wheeze, rhonchi or rales. No use of accessory muscles on inspiration or expiration. ABDOMEN: Soft, nontender. Nondistended. Bowel sounds heard in all 4 quadrants. No organomegaly or masses. Negative rebound, negative guarding EXTREMITIES: No edema, pulses are equal bilaterally. No cyanosis or clubbing NEUROLOGY: Mood and affect appear appropriate. Cranial nerves II through XII grossly intact. Moving all extremities, speech is clear Procedures 02/14 with right frontal bur hole and left subclavian line placement 02/15 with right occipital craniectomy with SDH evacuation 02/20 tracheostomy and PEG placement 02/25 left frontal temporoparietal decompressive craniotomy 03/06 PICC 03/29 bone flap replacement Urinary Catheter: No Date of Insertion: Apr 10, 2016 Date of Removal: Apr 22, 2016 Vascular Central Line Catheter: No A/P Assessment and Plan S/P traumatic brain injury: Initial head CT with right occipital bone fracture along with intraparenchymal hemorrhage, bilateral subdural hematomas, and subarachnoid hemorrhages. Patient is status post right frontal bur hole, right occipital craniectomy with SDH evacuation, left frontal temporoparietal decompressive craniotomy, and subsequent bone flap replacement. Neurosurgery has signed off. Discharged from PT/speech therapy/occupational therapy as patient has reached maximum benefit Keppra bid for seizure prophylaxis Hypertension: Blood pressure stable, systolic blood pressure 119-140 Metoprolol 12.5 mg every 12 hours Protein Calorie malnutrition: Initially requiring PEG tube, however patient had been eating well and PEG was removed 05/25. Continue current diet DVT prophylaxis: Patient is ambulating well, low risk Discharge Planning Discharge planning per case management, daily patient has been accepted at the [facility], however awaiting financials to be sorted out. Kaushik Mcguire Jul 21, 2016 08:21
[2016-07-21 08:22] VITALS: BP 117/77; PULSE 77; RESP 20; TEMP 97.3; O2SAT 98
[2016-07-21] MEDS: METOPROLOL TARTRATE 25 MG TAB PO SCH ×2 (08:22→20:14)
[2016-07-21] MEDS: SELENIUM SULFIDE 1% SHAMPOO 207 ML BOTTLE TOPICAL SCH (08:22)
[2016-07-21] MEDS: levETIRAcetam 500 MG TAB PO SCH ×2 (08:22→20:14)
[2016-07-21 20:00] VITALS: BP 120/79; PULSE 75; RESP 20; TEMP 97.5; O2SAT 98
[2016-07-21] MEDS: diphenhydrAMINE HCL 50 MG CAP PO PRN (20:14)
[2016-07-22 08:00] VITALS: BP 129/72; PULSE 74; RESP 17; TEMP 98.3; O2SAT 97
--- NOTE | 2016-07-22 08:29 | HHI.PR ---
Subjective Remarks Patient seen and examined today. Patient denies any new complaints. No change in clinical status. Awaiting case management discharge Objective Vitals Vital Signs Date Time Temp Pulse Resp B/P Pulse Ox O2 Delivery O2 Flow Rate FiO2 07/21/16 20:00 97.5 75 20 120/79 98 I/O 07/21/16 07/21/16 07/21/16 07/22/16 07/22/16 07/22/16 07:00 15:00 23:00 07:00 15:00 23:00 Intake Total 100 ml 120 ml 360 ml Output Total 550 ml Balance -550 ml 100 ml 120 ml 360 ml Intake Oral 100 ml 120 ml 360 ml Output Urine Total 550 ml # Voids 4 1 2 # Bowel Movements 0 Objective Remarks GENERAL: Well-developed, well-nourished, in no acute distress. alert and orientated to person, month, year, place HEENT: Head is normocephalic without any lesions or masses noted. Facial features are symmetric. Eyes: Pupils equal round reactive to light. Extraocular muscles are intact. Conjunctivae were clear. NECK: Supple without any masses. Trachea midline no deviation. No JVD CARDIAC: Regular rhythm, regular rate. S1/S2 are heard. No murmurs gallops or rubs. LUNGS: Clear to auscultation bilaterally. No wheeze, rhonchi or rales. No use of accessory muscles on inspiration or expiration. ABDOMEN: Soft, nontender. Nondistended. Bowel sounds heard in all 4 quadrants. No organomegaly or masses. Negative rebound, negative guarding EXTREMITIES: No edema, pulses are equal bilaterally. No cyanosis or clubbing NEUROLOGY: Mood and affect appear appropriate. Cranial nerves II through XII grossly intact. Moving all extremities, speech is clear Procedures 02/14 with right frontal bur hole and left subclavian line placement 02/15 with right occipital craniectomy with SDH evacuation 02/20 tracheostomy and PEG placement 02/25 left frontal temporoparietal decompressive craniotomy 03/06 PICC 03/29 bone flap replacement Urinary Catheter: No Date of Insertion: Apr 10, 2016 Date of Removal: Apr 22, 2016 Vascular Central Line Catheter: No A/P Assessment and Plan S/P traumatic brain injury: Initial head CT with right occipital bone fracture along with intraparenchymal hemorrhage, bilateral subdural hematomas, and subarachnoid hemorrhages. Patient is status post right frontal bur hole, right occipital craniectomy with SDH evacuation, left frontal temporoparietal decompressive craniotomy, and subsequent bone flap replacement. Neurosurgery has signed off. Discharged from PT/speech therapy/occupational therapy as patient has reached maximum benefit Keppra bid for seizure prophylaxis Hypertension: Blood pressure stable, systolic blood pressure 116-124 Metoprolol 12.5 mg every 12 hours Protein Calorie malnutrition: Initially requiring PEG tube, however patient had been eating well and PEG was removed 05/25. Continue current diet DVT prophylaxis: Patient is ambulating well, low risk Discharge Planning Discharge planning per case management, daily patient has been accepted at the [facility], however awaiting financials to be sorted out. Kaushik Mcguire Jul 22, 2016 08:29
[2016-07-22] MEDS: SELENIUM SULFIDE 1% SHAMPOO 207 ML BOTTLE TOPICAL SCH (09:00)
[2016-07-22] MEDS: levETIRAcetam 500 MG TAB PO SCH ×2 (09:24→20:17)
[2016-07-22] MEDS: METOPROLOL TARTRATE 25 MG TAB PO SCH ×2 (09:24→20:17)
[2016-07-22 20:15] VITALS: BP 142/77; PULSE 66; RESP 20; TEMP 97; O2SAT 98
[2016-07-23 08:00] VITALS: BP 124/69; PULSE 69; RESP 18; TEMP 97.8; O2SAT 98
[2016-07-23] MEDS: levETIRAcetam 500 MG TAB PO SCH ×2 (08:50→20:29)
[2016-07-23] MEDS: SELENIUM SULFIDE 1% SHAMPOO 207 ML BOTTLE TOPICAL SCH (08:50)
[2016-07-23] MEDS: METOPROLOL TARTRATE 25 MG TAB PO SCH ×2 (08:50→20:29)
--- NOTE | 2016-07-23 10:42 | HHI.PR ---
Subjective Remarks No acute complaints. No change in clinical status. Objective Vitals Vital Signs Date Time Temp Pulse Resp B/P Pulse Ox O2 Delivery O2 Flow Rate FiO2 07/23/16 08:00 97.8 69 18 124/69 98 07/22/16 20:15 97.0 66 20 142/77 98 I/O 07/22/16 07/22/16 07/22/16 07/23/16 07/23/16 07/23/16 07:00 15:00 23:00 07:00 15:00 23:00 Intake Total 360 ml 0 ml 100 ml Output Total 800 ml Balance 360 ml 0 ml -800 ml 100 ml Intake Oral 360 ml 100 ml IV Total 0 ml Output Urine Total 800 ml # Voids 2 2 Objective Remarks GENERAL: Well-nourished, well-developed patient in no apparent distress. SKIN: Warm and dry. HEAD: Atraumatic. Normocephalic. CARDIOVASCULAR: Regular rate and rhythm. RESPIRATORY: No accessory muscle use. Clear to auscultation. Breath sounds equal bilaterally. GASTROINTESTINAL: Abdomen soft, non-tender, nondistended. NEUROLOGICAL: Awake and alert. Motor grossly within normal limits. Normal speech. PSYCHIATRIC: Appropriate mood and affect. Procedures 02/14 with right frontal bur hole and left subclavian line placement 02/15 with right occipital craniectomy with SDH evacuation 02/20 tracheostomy and PEG placement 02/25 left frontal temporoparietal decompressive craniotomy 03/06 PICC 03/29 bone flap replacement Urinary Catheter: No Date of Insertion: Apr 10, 2016 Date of Removal: Apr 22, 2016 Vascular Central Line Catheter: No A/P Problem List: (1) HTN (hypertension) ICD Code: I10 Status: Chronic (2) Traumatic brain injury ICD Code: S06.9X9A Status: Acute (3) Insomnia ICD Code: G47.00 Status: Acute (4) Urinary retention ICD Code: R33.9 Status: Resolved (5) Protein calorie malnutrition ICD Code: E46 Status: Acute Assessment and Plan S/P traumatic brain injury: Initial head CT with right occipital bone fracture along with intraparenchymal hemorrhage, bilateral subdural hematomas, and subarachnoid hemorrhages. Patient is status post right frontal bur hole, right occipital craniectomy with SDH evacuation, left frontal temporoparietal decompressive craniotomy, and subsequent bone flap replacement. Neurosurgery has signed off. Discharged from PT/speech therapy/occupational therapy as patient has reached maximum benefit here Keppra bid for seizure prophylaxis Hypertension: Controlled. Will closely monitor. Continue Metoprolol 12.5 mg every 12 hours Protein Calorie malnutrition: Initially requiring PEG tube, however patient had been eating well and PEG was removed 05/25. Continue current diet; patient states he does not like Ensure. DVT prophylaxis: Patient is ambulating well, low risk Discharge Planning Accepted at [place], waiting contract with social security office to assign as payor. Problem Qualifiers (1) HTN (hypertension): Qualified Code: I10 - Essential hypertension Christina Hoff Jul 23, 2016 10:42
[2016-07-23 20:00] VITALS: BP 130/88; PULSE 98; RESP 18; TEMP 96.6; O2SAT 98
[2016-07-24 08:13] VITALS: BP 132/84; PULSE 68; RESP 18; TEMP 97.7
[2016-07-24] MEDS: levETIRAcetam 500 MG TAB PO SCH ×2 (08:14→21:24)
[2016-07-24] MEDS: SELENIUM SULFIDE 1% SHAMPOO 207 ML BOTTLE TOPICAL SCH (08:15)
[2016-07-24] MEDS: METOPROLOL TARTRATE 25 MG TAB PO SCH ×2 (08:15→21:29)
[2016-07-24 12:00] VITALS: BP 108/78; PULSE 72; RESP 20; TEMP 95.9; O2SAT 98
--- NOTE | 2016-07-24 15:07 | HHI.PR ---
Subjective Remarks Late entry. Patient evaluated earlier this morning. No acute complaints. No change in clinical status. Objective Vitals Vital Signs Date Time Temp Pulse Resp B/P Pulse Ox O2 Delivery O2 Flow Rate FiO2 07/24/16 12:00 95.9 72 20 108/78 98 07/24/16 08:13 97.7 68 18 132/84 07/23/16 20:00 96.6 98 18 130/88 98 I/O 07/23/16 07/23/16 07/23/16 07/24/16 07/24/16 07/24/16 07:00 15:00 23:00 07:00 15:00 23:00 Intake Total 100 ml 1000 ml Balance 100 ml 1000 ml Intake Oral 100 ml 1000 ml # Voids 2 3 1 4 # Bowel Movements 0 Objective Remarks GENERAL: Well-nourished, well-developed patient in no apparent distress. SKIN: Warm and dry. HEAD: Atraumatic. Normocephalic. CARDIOVASCULAR: Regular rate and rhythm. RESPIRATORY: No accessory muscle use. Clear to auscultation. Breath sounds equal bilaterally. GASTROINTESTINAL: Normoactive bowel sounds. Abdomen soft, non-tender, nondistended. NEUROLOGICAL: Awake and alert. Motor grossly within normal limits. Normal speech. PSYCHIATRIC: Appropriate mood and affect. Procedures 02/14 with right frontal bur hole and left subclavian line placement 02/15 with right occipital craniectomy with SDH evacuation 02/20 tracheostomy and PEG placement 02/25 left frontal temporoparietal decompressive craniotomy 03/06 PICC 03/29 bone flap replacement Urinary Catheter: No Date of Insertion: Apr 10, 2016 Date of Removal: Apr 22, 2016 Vascular Central Line Catheter: No A/P Problem List: (1) HTN (hypertension) ICD Code: I10 Status: Chronic (2) Traumatic brain injury ICD Code: S06.9X9A Status: Acute (3) Insomnia ICD Code: G47.00 Status: Acute (4) Urinary retention ICD Code: R33.9 Status: Resolved (5) Protein calorie malnutrition ICD Code: E46 Status: Acute Assessment and Plan S/P traumatic brain injury: Initial head CT with right occipital bone fracture along with intraparenchymal hemorrhage, bilateral subdural hematomas, and subarachnoid hemorrhages. Patient is status post right frontal bur hole, right occipital craniectomy with SDH evacuation, left frontal temporoparietal decompressive craniotomy, and subsequent bone flap replacement. Neurosurgery has signed off. Discharged from PT/speech therapy/occupational therapy as patient has reached maximum benefit here Keppra bid for seizure prophylaxis Hypertension: Controlled. Will closely monitor. Continue Metoprolol 12.5 mg every 12 hours Protein Calorie malnutrition: Initially requiring PEG tube, however patient had been eating well and PEG was removed 05/25. Continue current diet; patient states he does not like Ensure. DVT prophylaxis: Patient is ambulating well, low risk Discharge Planning Accepted at [place], waiting contract with social security office to assign as payor. Problem Qualifiers (1) HTN (hypertension): Qualified Code: I10 - Essential hypertension Christina Hoff Jul 24, 2016 15:07 Jhony An MD Jul 24, 2016 18:35
[2016-07-24 16:00] VITALS: BP 139/82; PULSE 67; RESP 20; TEMP 96.1; O2SAT 100
[2016-07-24 20:00] VITALS: BP 120/82; PULSE 63; RESP 16; TEMP 98.7; O2SAT 97
[2016-07-25 08:00] VITALS: BP 121/82; PULSE 67; RESP 16; TEMP 97.3; O2SAT 96
[2016-07-25] MEDS: METOPROLOL TARTRATE 25 MG TAB PO SCH ×2 (08:42→21:12)
[2016-07-25] MEDS: SELENIUM SULFIDE 1% SHAMPOO 207 ML BOTTLE TOPICAL SCH (08:42)
[2016-07-25] MEDS: levETIRAcetam 500 MG TAB PO SCH ×2 (08:42→21:12)
--- NOTE | 2016-07-25 18:57 | HHI.PR ---
Subjective Remarks Late entry. Patient evaluated early this morning. No acute complaints. No change in clinical status. Objective Vitals Vital Signs Date Time Temp Pulse Resp B/P Pulse Ox O2 Delivery O2 Flow Rate FiO2 07/25/16 08:00 97.3 67 16 121/82 96 07/24/16 20:00 98.7 63 16 120/82 97 I/O 07/24/16 07/24/16 07/24/16 07/25/16 07/25/16 07/25/16 07:00 15:00 23:00 07:00 15:00 23:00 Intake Total 1000 ml 860 ml 630 ml 210 ml Output Total 600 ml Balance 1000 ml 260 ml 630 ml 210 ml Intake Oral 1000 ml 860 ml 630 ml 210 ml Output Urine Total 600 ml # Voids 1 4 3 2 # Bowel Movements 0 0 Objective Remarks GENERAL: Well-nourished, well-developed patient in no apparent distress. SKIN: Warm and dry. HEAD: Atraumatic. Normocephalic. CARDIOVASCULAR: Regular rate and rhythm. RESPIRATORY: No accessory muscle use. Clear to auscultation. Breath sounds equal bilaterally. GASTROINTESTINAL: Abdomen soft, non-tender, nondistended. NEUROLOGICAL: Awake and alert. Motor grossly within normal limits. Normal speech. PSYCHIATRIC: Appropriate mood and affect. Procedures 02/14 with right frontal bur hole and left subclavian line placement 02/15 with right occipital craniectomy with SDH evacuation 02/20 tracheostomy and PEG placement 02/25 left frontal temporoparietal decompressive craniotomy 03/06 PICC 03/29 bone flap replacement Urinary Catheter: No Date of Insertion: Apr 10, 2016 Date of Removal: Apr 22, 2016 Vascular Central Line Catheter: No A/P Problem List: (1) HTN (hypertension) ICD Code: I10 Status: Chronic (2) Traumatic brain injury ICD Code: S06.9X9A Status: Acute (3) Insomnia ICD Code: G47.00 Status: Acute (4) Urinary retention ICD Code: R33.9 Status: Resolved (5) Protein calorie malnutrition ICD Code: E46 Status: Acute Assessment and Plan S/P traumatic brain injury: Initial head CT with right occipital bone fracture along with intraparenchymal hemorrhage, bilateral subdural hematomas, and subarachnoid hemorrhages. Patient is status post right frontal bur hole, right occipital craniectomy with SDH evacuation, left frontal temporoparietal decompressive craniotomy, and subsequent bone flap replacement. Neurosurgery has signed off. Discharged from PT/speech therapy/occupational therapy as patient has reached maximum benefit here Keppra bid for seizure prophylaxis Hypertension: Controlled. Will closely monitor. Continue Metoprolol 12.5 mg every 12 hours Protein Calorie malnutrition: Initially requiring PEG tube, however patient had been eating well and PEG was removed 05/25. Continue current diet; patient states he does not like Ensure. DVT prophylaxis: Patient is ambulating well, low risk Discharge Planning Accepted at [place], waiting contract with social security office to assign as payor. Problem Qualifiers (1) HTN (hypertension): Qualified Code: I10 - Essential hypertension Christina Hoff Jul 25, 2016 18:57
[2016-07-25 20:00] VITALS: BP 133/94; PULSE 60; RESP 20; TEMP 97.7; O2SAT 99
[2016-07-26 08:00] VITALS: BP 108/76; PULSE 69; RESP 18; TEMP 98.1; O2SAT 97
[2016-07-26] MEDS: METOPROLOL TARTRATE 25 MG TAB PO SCH ×2 (08:30→21:38)
[2016-07-26] MEDS: levETIRAcetam 500 MG TAB PO SCH ×2 (08:31→21:38)
[2016-07-26] MEDS: SELENIUM SULFIDE 1% SHAMPOO 207 ML BOTTLE TOPICAL SCH (08:32)
--- NOTE | 2016-07-26 17:51 | HHI.PR ---
Subjective Remarks Late entry. Patient evaluated this morning. No acute complaints. No change in clinical status. Objective Vitals Vital Signs Date Time Temp Pulse Resp B/P Pulse Ox O2 Delivery O2 Flow Rate FiO2 07/26/16 08:00 98.1 69 18 108/76 97 07/25/16 20:00 97.7 60 20 133/94 99 I/O 07/25/16 07/25/16 07/25/16 07/26/16 07/26/16 07/26/16 07:00 15:00 23:00 07:00 15:00 23:00 Intake Total 860 ml 630 ml 210 ml 240 ml Output Total 600 ml Balance 260 ml 630 ml 210 ml 240 ml Intake Oral 860 ml 630 ml 210 ml 240 ml Output Urine Total 600 ml # Voids 3 2 # Bowel Movements 0 Objective Remarks GENERAL: Well-nourished, well-developed patient in no apparent distress. SKIN: Warm and dry. HEAD: Atraumatic. Normocephalic. CARDIOVASCULAR: Regular rate and rhythm. RESPIRATORY: No accessory muscle use. Clear to auscultation. Breath sounds equal bilaterally. GASTROINTESTINAL: Normoactive bowel sounds. Abdomen soft, non-tender, nondistended. NEUROLOGICAL: Awake and alert. Motor grossly within normal limits. Normal speech. PSYCHIATRIC: Appropriate mood and affect. Procedures 02/14 with right frontal bur hole and left subclavian line placement 02/15 with right occipital craniectomy with SDH evacuation 02/20 tracheostomy and PEG placement 02/25 left frontal temporoparietal decompressive craniotomy 03/06 PICC 03/29 bone flap replacement Urinary Catheter: No Date of Insertion: Apr 10, 2016 Date of Removal: Apr 22, 2016 Vascular Central Line Catheter: No A/P Problem List: (1) HTN (hypertension) ICD Code: I10 Status: Chronic (2) Traumatic brain injury ICD Code: S06.9X9A Status: Acute (3) Insomnia ICD Code: G47.00 Status: Acute (4) Urinary retention ICD Code: R33.9 Status: Resolved (5) Protein calorie malnutrition ICD Code: E46 Status: Acute Assessment and Plan S/P traumatic brain injury: Initial head CT with right occipital bone fracture along with intraparenchymal hemorrhage, bilateral subdural hematomas, and subarachnoid hemorrhages. Patient is status post right frontal bur hole, right occipital craniectomy with SDH evacuation, left frontal temporoparietal decompressive craniotomy, and subsequent bone flap replacement. Neurosurgery has signed off. Discharged from PT/speech therapy/occupational therapy as patient has reached maximum benefit here Keppra bid for seizure prophylaxis Hypertension: Controlled. Will closely monitor. Continue Metoprolol 12.5 mg every 12 hours Protein Calorie malnutrition: Initially requiring PEG tube, however patient had been eating well and PEG was removed 05/25. Continue current diet; patient states he does not like Ensure. DVT prophylaxis: Patient is ambulating well, low risk Discharge Planning Accepted at [place], waiting contract with social security office to assign as payor. Problem Qualifiers (1) HTN (hypertension): Qualified Code: I10 - Essential hypertension Christina Hoff Jul 26, 2016 17:50
[2016-07-26 20:00] VITALS: BP 126/85; PULSE 71; RESP 15; TEMP 97.8; O2SAT 98
[2016-07-27] MEDS: METOPROLOL TARTRATE 25 MG TAB PO SCH ×2 (08:00→21:22)
[2016-07-27] MEDS: levETIRAcetam 500 MG TAB PO SCH ×2 (08:00→21:22)
[2016-07-27] MEDS: SELENIUM SULFIDE 1% SHAMPOO 207 ML BOTTLE TOPICAL SCH (09:00)
[2016-07-27 09:25] VITALS: BP_SYST 115; BP_SYST 135; BP_DIAS 77; BP_DIAS 85; PULSE 70; RESP 20; TEMP 96; O2SAT 97
--- NOTE | 2016-07-27 15:40 | HHI.PR ---
Subjective Remarks Late entry. Patient evaluated early this morning. No acute complaints. No change in clinical status. Objective Vitals Vital Signs Date Time Temp Pulse Resp B/P Pulse Ox O2 Delivery O2 Flow Rate FiO2 07/27/16 09:25 96.0 70 20 115/77 97 07/26/16 20:00 97.8 71 15 126/85 98 I/O 07/26/16 07/26/16 07/26/16 07/27/16 07/27/16 07/27/16 07:00 15:00 23:00 07:00 15:00 23:00 Intake Total 240 ml 1320 ml 120 ml 900 ml Balance 240 ml 1320 ml 120 ml 900 ml Intake Oral 240 ml 1320 ml 120 ml 900 ml # Voids 6 0 4 # Bowel Movements 1 Objective Remarks GENERAL: Well-nourished, well-developed patient in no apparent distress. SKIN: Warm and dry. CARDIOVASCULAR: Regular rate and rhythm. RESPIRATORY: No accessory muscle use. Clear to auscultation. Breath sounds equal bilaterally. GASTROINTESTINAL: Abdomen soft, non-tender, nondistended. NEUROLOGICAL: Awake and alert. Motor grossly within normal limits. Normal speech. PSYCHIATRIC: Appropriate mood and affect. Procedures 02/14 with right frontal bur hole and left subclavian line placement 02/15 with right occipital craniectomy with SDH evacuation 02/20 tracheostomy and PEG placement 02/25 left frontal temporoparietal decompressive craniotomy 03/06 PICC 03/29 bone flap replacement Urinary Catheter: No Date of Insertion: Apr 10, 2016 Date of Removal: Apr 22, 2016 Vascular Central Line Catheter: No A/P Problem List: (1) HTN (hypertension) ICD Code: I10 Status: Chronic (2) Traumatic brain injury ICD Code: S06.9X9A Status: Acute (3) Insomnia ICD Code: G47.00 Status: Acute (4) Urinary retention ICD Code: R33.9 Status: Resolved (5) Protein calorie malnutrition ICD Code: E46 Status: Acute Assessment and Plan S/P traumatic brain injury: Initial head CT with right occipital bone fracture along with intraparenchymal hemorrhage, bilateral subdural hematomas, and subarachnoid hemorrhages. Patient is status post right frontal bur hole, right occipital craniectomy with SDH evacuation, left frontal temporoparietal decompressive craniotomy, and subsequent bone flap replacement. Neurosurgery has signed off. Discharged from PT/speech therapy/occupational therapy as patient has reached maximum benefit here Keppra bid for seizure prophylaxis Hypertension: Controlled. Will closely monitor. Continue Metoprolol 12.5 mg every 12 hours Protein Calorie malnutrition: Initially requiring PEG tube, however patient had been eating well and PEG was removed 05/25. Continue current diet; patient states he does not like Ensure. DVT prophylaxis: Patient is ambulating well, low risk Discharge Planning Accepted at [place], waiting contract with social security office to assign as payor. Problem Qualifiers (1) HTN (hypertension): Qualified Code: I10 - Essential hypertension Christina Hoff Jul 27, 2016 15:40
[2016-07-27 20:00] VITALS: BP 121/87; PULSE 71; RESP 18; TEMP 97.1; O2SAT 97
[2016-07-28 08:00] VITALS: BP 127/83; PULSE 62; RESP 18; TEMP 96; O2SAT 97
[2016-07-28] MEDS: METOPROLOL TARTRATE 25 MG TAB PO SCH ×2 (08:32→20:44)
[2016-07-28] MEDS: levETIRAcetam 500 MG TAB PO SCH ×2 (08:33→20:44)
[2016-07-28] MEDS: SELENIUM SULFIDE 1% SHAMPOO 207 ML BOTTLE TOPICAL SCH (08:33)
--- NOTE | 2016-07-28 10:21 | HHI.PR ---
Subjective Remarks No acute complaints. No change in clinical status. Patient states he had a BM yesterday. Objective Vitals Vital Signs Date Time Temp Pulse Resp B/P Pulse Ox O2 Delivery O2 Flow Rate FiO2 07/28/16 08:00 96.0 62 18 127/83 97 07/27/16 20:00 97.1 71 18 121/87 97 I/O 07/27/16 07/27/16 07/27/16 07/28/16 07/28/16 07/28/16 07:00 15:00 23:00 07:00 15:00 23:00 Intake Total 120 ml 900 ml 240 ml Balance 120 ml 900 ml 240 ml Intake Oral 120 ml 900 ml IV Total 240 ml # Voids 0 4 2 # Bowel Movements 1 Objective Remarks GENERAL: Well-nourished, well-developed patient in no apparent distress. SKIN: Warm and dry. CARDIOVASCULAR: Regular rate and rhythm. RESPIRATORY: No accessory muscle use. Clear to auscultation. Breath sounds equal bilaterally. GASTROINTESTINAL: Abdomen soft, non-tender, nondistended. NEUROLOGICAL: Awake and alert. Motor grossly within normal limits. Normal speech. PSYCHIATRIC: Appropriate mood and affect. Procedures 02/14 with right frontal bur hole and left subclavian line placement 02/15 with right occipital craniectomy with SDH evacuation 02/20 tracheostomy and PEG placement 02/25 left frontal temporoparietal decompressive craniotomy 03/06 PICC 03/29 bone flap replacement Urinary Catheter: No Date of Insertion: Apr 10, 2016 Date of Removal: Apr 22, 2016 Vascular Central Line Catheter: No A/P Problem List: (1) HTN (hypertension) ICD Code: I10 Status: Chronic (2) Traumatic brain injury ICD Code: S06.9X9A Status: Acute (3) Insomnia ICD Code: G47.00 Status: Acute (4) Urinary retention ICD Code: R33.9 Status: Resolved (5) Protein calorie malnutrition ICD Code: E46 Status: Acute Assessment and Plan S/P traumatic brain injury: Initial head CT with right occipital bone fracture along with intraparenchymal hemorrhage, bilateral subdural hematomas, and subarachnoid hemorrhages. Patient is status post right frontal bur hole, right occipital craniectomy with SDH evacuation, left frontal temporoparietal decompressive craniotomy, and subsequent bone flap replacement. Neurosurgery has signed off. Discharged from PT/speech therapy/occupational therapy as patient has reached maximum benefit here Keppra bid for seizure prophylaxis Hypertension: Controlled. Will closely monitor. Continue Metoprolol 12.5 mg every 12 hours Protein Calorie malnutrition: Initially requiring PEG tube, however patient had been eating well and PEG was removed 05/25. Continue current diet; patient states he does not like Ensure. DVT prophylaxis: Patient is ambulating well, low risk Discharge Planning Accepted at [place], waiting contract with social security office to assign as payor. Problem Qualifiers (1) HTN (hypertension): Qualified Code: I10 - Essential hypertension Christina Hoff Jul 28, 2016 10:21
[2016-07-28 20:00] VITALS: BP 124/82; PULSE 65; RESP 18; TEMP 96.8; O2SAT 97
[2016-07-29 08:00] VITALS: BP 143/91; PULSE 70; RESP 16; TEMP 98; O2SAT 97
[2016-07-29] MEDS: levETIRAcetam 500 MG TAB PO SCH ×2 (08:29→20:13)
[2016-07-29] MEDS: METOPROLOL TARTRATE 25 MG TAB PO SCH ×2 (08:29→20:13)
[2016-07-29] MEDS: SELENIUM SULFIDE 1% SHAMPOO 207 ML BOTTLE TOPICAL SCH (08:30)
--- NOTE | 2016-07-29 10:18 | HHI.PR ---
Subjective Remarks No acute complaints. No change in clinical status. Objective Vitals Vital Signs Date Time Temp Pulse Resp B/P Pulse Ox O2 Delivery O2 Flow Rate FiO2 07/29/16 08:00 98.0 70 16 143/91 97 07/28/16 20:00 96.8 65 18 124/82 97 I/O 07/28/16 07/28/16 07/28/16 07/29/16 07/29/16 07/29/16 07:00 15:00 23:00 07:00 15:00 23:00 Intake Total 900 ml 720 ml 240 ml Balance 900 ml 720 ml 240 ml Intake Oral 900 ml 720 ml 240 ml # Voids 3 2 Objective Remarks GENERAL: Well-nourished, well-developed patient in no apparent distress. SKIN: Warm and dry. CARDIOVASCULAR: Regular rate and rhythm. RESPIRATORY: No accessory muscle use. Clear to auscultation. Breath sounds equal bilaterally. GASTROINTESTINAL: Abdomen soft, non-tender, nondistended. NEUROLOGICAL: Awake and alert. Motor grossly within normal limits. Normal speech. PSYCHIATRIC: Appropriate mood and affect. Procedures 02/14 with right frontal bur hole and left subclavian line placement 02/15 with right occipital craniectomy with SDH evacuation 02/20 tracheostomy and PEG placement 02/25 left frontal temporoparietal decompressive craniotomy 03/06 PICC 03/29 bone flap replacement Urinary Catheter: No Date of Insertion: Apr 10, 2016 Date of Removal: Apr 22, 2016 Vascular Central Line Catheter: No A/P Problem List: (1) HTN (hypertension) ICD Code: I10 Status: Chronic (2) Traumatic brain injury ICD Code: S06.9X9A Status: Acute (3) Insomnia ICD Code: G47.00 Status: Acute (4) Urinary retention ICD Code: R33.9 Status: Resolved (5) Protein calorie malnutrition ICD Code: E46 Status: Acute Assessment and Plan S/P traumatic brain injury: Initial head CT with right occipital bone fracture along with intraparenchymal hemorrhage, bilateral subdural hematomas, and subarachnoid hemorrhages. Patient is status post right frontal bur hole, right occipital craniectomy with SDH evacuation, left frontal temporoparietal decompressive craniotomy, and subsequent bone flap replacement. Neurosurgery has signed off. Discharged from PT/speech therapy/occupational therapy as patient has reached maximum benefit here Keppra bid for seizure prophylaxis Hypertension: Mildly elevated this morning. Continue Metoprolol 12.5 mg every 12 hours Continue to monitor Protein Calorie malnutrition: Initially requiring PEG tube, however patient had been eating well and PEG was removed 05/25. Continue current diet; patient states he does not like Ensure. DVT prophylaxis: Patient is ambulating well, low risk Discharge Planning Accepted at [place], waiting contract with social security office to assign as payor. Problem Qualifiers (1) HTN (hypertension): Qualified Code: I10 - Essential hypertension Christina Hoff Jul 29, 2016 10:18
[2016-07-29 20:00] VITALS: BP 126/80; PULSE 68; RESP 19; TEMP 98; O2SAT 96
[2016-07-30] MEDS: levETIRAcetam 500 MG TAB PO SCH ×2 (07:36→22:07)
[2016-07-30] MEDS: METOPROLOL TARTRATE 25 MG TAB PO SCH ×2 (07:36→21:00)
[2016-07-30] MEDS: SELENIUM SULFIDE 1% SHAMPOO 207 ML BOTTLE TOPICAL SCH (07:36)
[2016-07-30 08:00] VITALS: BP 114/83; PULSE 62; RESP 20; TEMP 95.9; O2SAT 98
--- NOTE | 2016-07-30 09:28 | HHI.PR ---
Subjective Remarks Patient seen and examined today. Patient denies any new complaints. Just waiting on case management to arrange discharge planning Objective Vitals Vital Signs Date Time Temp Pulse Resp B/P Pulse Ox O2 Delivery O2 Flow Rate FiO2 07/30/16 08:00 95.9 62 20 114/83 98 07/29/16 20:00 98.0 68 19 126/80 96 I/O 07/29/16 07/29/16 07/29/16 07/30/16 07/30/16 07/30/16 06:59 14:59 22:59 06:59 14:59 22:59 Intake Total 240 ml 720 ml Balance 240 ml 720 ml Intake Oral 240 ml 720 ml # Voids 3 2 Objective Remarks GENERAL: Well-developed, well-nourished, in no acute distress. alert and orientated to person, month, year, place HEENT: Head is normocephalic without any lesions or masses noted. Facial features are symmetric. Eyes: Pupils equal round reactive to light. Extraocular muscles are intact. Conjunctivae were clear. NECK: Supple without any masses. Trachea midline no deviation. No JVD CARDIAC: Regular rhythm, regular rate. S1/S2 are heard. No murmurs gallops or rubs. LUNGS: Clear to auscultation bilaterally. No wheeze, rhonchi or rales. No use of accessory muscles on inspiration or expiration. ABDOMEN: Soft, nontender. Nondistended. Bowel sounds heard in all 4 quadrants. No organomegaly or masses. Negative rebound, negative guarding EXTREMITIES: No edema, pulses are equal bilaterally. No cyanosis or clubbing NEUROLOGY: Mood and affect appear appropriate. Cranial nerves II through XII grossly intact. Moving all extremities, speech is clear Procedures 02/14 with right frontal bur hole and left subclavian line placement 02/15 with right occipital craniectomy with SDH evacuation 02/20 tracheostomy and PEG placement 02/25 left frontal temporoparietal decompressive craniotomy 03/06 PICC 03/29 bone flap replacement Urinary Catheter: No Date of Insertion: Apr 10, 2016 Date of Removal: Apr 22, 2016 Vascular Central Line Catheter: No A/P Assessment and Plan S/P traumatic brain injury: Initial head CT with right occipital bone fracture along with intraparenchymal hemorrhage, bilateral subdural hematomas, and subarachnoid hemorrhages. Patient is status post right frontal bur hole, right occipital craniectomy with SDH evacuation, left frontal temporoparietal decompressive craniotomy, and subsequent bone flap replacement. Neurosurgery has signed off. Discharged from PT/speech therapy/occupational therapy as patient has reached maximum benefit Keppra bid for seizure prophylaxis Hypertension: Blood pressure stable, systolic blood pressure 116-124 Metoprolol 12.5 mg every 12 hours Protein Calorie malnutrition: Initially requiring PEG tube, however patient had been eating well and PEG was removed 05/25. Continue current diet DVT prophylaxis: Patient is ambulating well, low risk Discharge Planning Discharge planning per case management, daily patient has been accepted at the [facility], however awaiting financials to be sorted out. 07/25/16 1130 PATIENT IS ACCEPTED AT THE [facility] IN [place]. NEEDS SSI CK TO DESIGNATED TO THE [facility]. BOTH [facility]) AND THE [facility] ARE MAKING MULTIPLE CALLS TO SOCIAL [employer]CUR[employer] AND HAVE A NAME OF THE DRIVEWAY ATTENDANT WHO DOES NOT CALL BACK. HAVE REQUESTED FRANCHESCA AT [facility] THIS AM TO PLEASE REACH OUT TO A [employer]K [employer] CAR UNLOADER TO EXPEDITE THIS. DAVID ORTIZ LPN/Kaushik Figueroa Jul 30, 2016 09:28
[2016-07-30 20:00] VITALS: BP 137/88; PULSE 64; RESP 19; TEMP 96.7; O2SAT 97
[2016-07-31 08:00] VITALS: BP 146/70; PULSE 79; RESP 17; TEMP 97.7; O2SAT 94
--- NOTE | 2016-07-31 08:12 | HHI.PR ---
Subjective Remarks Patient seen and examined today. Patient denies any new complaints. Awaiting case management for discharge Objective Vitals Vital Signs Date Time Temp Pulse Resp B/P Pulse Ox O2 Delivery O2 Flow Rate FiO2 07/30/16 20:00 96.7 64 19 137/88 97 I/O 07/30/16 07/30/16 07/30/16 07/31/16 07/31/16 07/31/16 07:00 15:00 23:00 07:00 15:00 23:00 Intake Total 900 ml 240 ml 240 ml Output Total 800 ml 600 ml Balance 900 ml -560 ml -360 ml Intake Oral 900 ml 240 ml 240 ml Output Urine Total 800 ml 600 ml # Voids 2 4 # Bowel Movements 1 0 0 Objective Remarks GENERAL: Well-developed, well-nourished, in no acute distress. alert and orientated to person, month, year, place HEENT: Head is normocephalic without any lesions or masses noted. Facial features are symmetric. Eyes: Pupils equal round reactive to light. Extraocular muscles are intact. Conjunctivae were clear. NECK: Supple without any masses. Trachea midline no deviation. No JVD CARDIAC: Regular rhythm, regular rate. S1/S2 are heard. No murmurs gallops or rubs. LUNGS: Clear to auscultation bilaterally. No wheeze, rhonchi or rales. No use of accessory muscles on inspiration or expiration. ABDOMEN: Soft, nontender. Nondistended. Bowel sounds heard in all 4 quadrants. No organomegaly or masses. Negative rebound, negative guarding EXTREMITIES: No edema, pulses are equal bilaterally. No cyanosis or clubbing NEUROLOGY: Mood and affect appear appropriate. Cranial nerves II through XII grossly intact. Moving all extremities, speech is clear Procedures 02/14 with right frontal bur hole and left subclavian line placement 02/15 with right occipital craniectomy with SDH evacuation 02/20 tracheostomy and PEG placement 02/25 left frontal temporoparietal decompressive craniotomy 03/06 PICC 03/29 bone flap replacement Urinary Catheter: No Date of Insertion: Apr 10, 2016 Date of Removal: Apr 22, 2016 Vascular Central Line Catheter: No A/P Assessment and Plan S/P traumatic brain injury: Initial head CT with right occipital bone fracture along with intraparenchymal hemorrhage, bilateral subdural hematomas, and subarachnoid hemorrhages. Patient is status post right frontal bur hole, right occipital craniectomy with SDH evacuation, left frontal temporoparietal decompressive craniotomy, and subsequent bone flap replacement. Neurosurgery has signed off. Discharged from PT/speech therapy/occupational therapy as patient has reached maximum benefit Keppra bid for seizure prophylaxis Hypertension: Blood pressure stable, Metoprolol 12.5 mg every 12 hours Protein Calorie malnutrition: Initially requiring PEG tube, however patient had been eating well and PEG was removed 05/25. Continue current diet DVT prophylaxis: Patient is ambulating well, low risk Discharge Planning Discharge planning per case management, daily patient has been accepted at the [facility] however awaiting financials to be sorted out. 07/25/16 1130 PATIENT IS ACCEPTED AT THE [facility] IN [place]. NEEDS SSI CK TO DESIGNATED TO THE [place] PAYEE. 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 HAVE REQUESTED FRANCHESCA AT [facility] THIS AM TO PLEASE REACH OUT TO A ACTUARY TO EXPEDITE THIS. DAVID ORTIZ LPN/Kaushik Figueroa Jul 31, 2016 08:12
[2016-07-31] MEDS: levETIRAcetam 500 MG TAB PO SCH ×2 (08:53→21:35)
[2016-07-31] MEDS: METOPROLOL TARTRATE 25 MG TAB PO SCH ×2 (08:53→21:35)
[2016-07-31] MEDS: SELENIUM SULFIDE 1% SHAMPOO 207 ML BOTTLE TOPICAL SCH (08:54)
[2016-07-31 20:05] VITALS: BP 129/76; PULSE 67; RESP 20; TEMP 97.3; O2SAT 97
[2016-08-01 08:00] VITALS: BP 146/79; PULSE 61; RESP 17; TEMP 97.9; O2SAT 98
[2016-08-01] MEDS: METOPROLOL TARTRATE 25 MG TAB PO SCH ×2 (08:18→21:00)
[2016-08-01] MEDS: levETIRAcetam 500 MG TAB PO SCH ×2 (08:18→21:00)
[2016-08-01] MEDS: SELENIUM SULFIDE 1% SHAMPOO 207 ML BOTTLE TOPICAL SCH (08:19)
--- NOTE | 2016-08-01 08:56 | HHI.PR ---
Subjective Remarks Patient seen and examined today. Patient denies any new complaints. Awaiting case management for discharge Objective Vitals Vital Signs Date Time Temp Pulse Resp B/P Pulse Ox O2 Delivery O2 Flow Rate FiO2 08/01/16 08:00 97.9 61 17 146/79 98 07/31/16 20:05 97.3 67 20 129/76 97 I/O 07/31/16 07/31/16 07/31/16 08/01/16 08/01/16 08/01/16 07:00 15:00 23:00 07:00 15:00 23:00 Intake Total 240 ml 480 ml 420 ml Output Total 600 ml Balance -360 ml 480 ml 420 ml Intake Oral 240 ml 480 ml 420 ml Output Urine Total 600 ml # Voids 2 1 # Bowel Movements 0 2 0 Objective Remarks GENERAL: Well-developed, well-nourished, in no acute distress. alert and orientated to person, month, year, place HEENT: Head is normocephalic without any lesions or masses noted. Facial features are symmetric. Eyes: Pupils equal round reactive to light. Extraocular muscles are intact. Conjunctivae were clear. NECK: Supple without any masses. Trachea midline no deviation. No JVD CARDIAC: Regular rhythm, regular rate. S1/S2 are heard. No murmurs gallops or rubs. LUNGS: Clear to auscultation bilaterally. No wheeze, rhonchi or rales. No use of accessory muscles on inspiration or expiration. ABDOMEN: Soft, nontender. Nondistended. Bowel sounds heard in all 4 quadrants. No organomegaly or masses. Negative rebound, negative guarding EXTREMITIES: No edema, pulses are equal bilaterally. No cyanosis or clubbing NEUROLOGY: Mood and affect appear appropriate. Cranial nerves II through XII grossly intact. Moving all extremities, speech is clear Procedures 02/14 with right frontal bur hole and left subclavian line placement 02/15 with right occipital craniectomy with SDH evacuation 02/20 tracheostomy and PEG placement 02/25 left frontal temporoparietal decompressive craniotomy 03/06 PICC 03/29 bone flap replacement Urinary Catheter: No Date of Insertion: Apr 10, 2016 Date of Removal: Apr 22, 2016 Vascular Central Line Catheter: No A/P Assessment and Plan S/P traumatic brain injury: Initial head CT with right occipital bone fracture along with intraparenchymal hemorrhage, bilateral subdural hematomas, and subarachnoid hemorrhages. Patient is status post right frontal bur hole, right occipital craniectomy with SDH evacuation, left frontal temporoparietal decompressive craniotomy, and subsequent bone flap replacement. Neurosurgery has signed off. Discharged from PT/speech therapy/occupational therapy as patient has reached maximum benefit Keppra bid for seizure prophylaxis Hypertension: Blood pressure stable, Metoprolol 12.5 mg every 12 hours Protein Calorie malnutrition: Initially requiring PEG tube, however patient had been eating well and PEG was removed 05/25. Continue current diet DVT prophylaxis: Patient is ambulating well, low risk Discharge Planning Discharge planning per case management, daily patient has been accepted at the [facility], however awaiting financials to be sorted out. 07/25/16 1130 PATIENT IS ACCEPTED AT THE THE [facility] IN [place]. NEEDS SSI CK TO DESIGNATED TO THE [place] PAYEE. BOTH [facility]) AND THE [place] ARE MAKING MULTIPLE CALLS TO SOCIAL [employer] AND HAVE A NAME OF THE [employer] B[employer]ET MAKER WHO DOES NOT CALL BACK. HAVE REQUESTED FRANCHESCA AT [facility] THIS AM TO PLEASE REACH OUT TO A MEDICAL RECORD ADMINISTRATOR TO EXPEDITE THIS. DAVID ORTIZ LPN/Kaushik Figueroa Aug 01, 2016 08:56
[2016-08-01 20:00] VITALS: BP 132/91; PULSE 61; RESP 18; TEMP 97.7; O2SAT 97
[2016-08-02 08:00] VITALS: BP 115/79; PULSE 63; RESP 18; TEMP 97.4; O2SAT 96
--- NOTE | 2016-08-02 08:24 | HHI.PR ---
Subjective Remarks Patient seen and examined today. Patient denies any new complaints. No change in clinical status. Awaiting case management for discharge planning Objective Vitals Vital Signs Date Time Temp Pulse Resp B/P Pulse Ox O2 Delivery O2 Flow Rate FiO2 08/01/16 20:00 97.7 61 18 132/91 97 I/O 08/01/16 08/01/16 08/01/16 08/02/16 08/02/16 08/02/16 07:00 15:00 23:00 07:00 15:00 23:00 Intake Total 480 ml Balance 480 ml Intake Oral 480 ml # Voids 1 1 # Bowel Movements 0 Objective Remarks GENERAL: Well-developed, well-nourished, in no acute distress. alert and orientated to person, month, year, place HEENT: Head is normocephalic without any lesions or masses noted. Facial features are symmetric. Eyes: Pupils equal round reactive to light. Extraocular muscles are intact. Conjunctivae were clear. NECK: Supple without any masses. Trachea midline no deviation. No JVD CARDIAC: Regular rhythm, regular rate. S1/S2 are heard. No murmurs gallops or rubs. LUNGS: Clear to auscultation bilaterally. No wheeze, rhonchi or rales. No use of accessory muscles on inspiration or expiration. ABDOMEN: Soft, nontender. Nondistended. Bowel sounds heard in all 4 quadrants. No organomegaly or masses. Negative rebound, negative guarding EXTREMITIES: No edema, pulses are equal bilaterally. No cyanosis or clubbing NEUROLOGY: Mood and affect appear appropriate. Cranial nerves II through XII grossly intact. Moving all extremities, speech is clear Procedures 02/14 with right frontal bur hole and left subclavian line placement 02/15 with right occipital craniectomy with SDH evacuation 02/20 tracheostomy and PEG placement 02/25 left frontal temporoparietal decompressive craniotomy 03/06 PICC 03/29 bone flap replacement Urinary Catheter: No Date of Insertion: Apr 10, 2016 Date of Removal: Apr 22, 2016 Vascular Central Line Catheter: No A/P Assessment and Plan S/P traumatic brain injury: Initial head CT with right occipital bone fracture along with intraparenchymal hemorrhage, bilateral subdural hematomas, and subarachnoid hemorrhages. Patient is status post right frontal bur hole, right occipital craniectomy with SDH evacuation, left frontal temporoparietal decompressive craniotomy, and subsequent bone flap replacement. Neurosurgery has signed off. Discharged from PT/speech therapy/occupational therapy as patient has reached maximum benefit Keppra bid for seizure prophylaxis Hypertension: Blood pressure stable, Metoprolol 12.5 mg every 12 hours Protein Calorie malnutrition: Initially requiring PEG tube, however patient had been eating well and PEG was removed 05/25. Continue current diet DVT prophylaxis: Patient is ambulating well, low risk Discharge Planning Discharge planning per case management, daily patient has been accepted at the [facility], however awaiting financials to be sorted out. 08/01/16 PATIENT CONTINUES HOSPITALIZATION S/P TRAUMATIC BRAIN INJURY WITH RIGHT OCCIPITAL BONE FRACTURE ALONG WITHINTRAPARENCHYMAL HEMORRHAGE, BILATERAL SUBDURAL HEMATOMAS, AND SUBARACHNOID HEMORRHAGES. PATIENT HAS BEEN DISCHARGED FROM NEUROSURGERY AND PT, WELL SPEECH. PATIENT HAS BEEN ACCEPTED BY THE [facility] BUT STILL NO FUNDING APPROVED. [facility] IS WORKING ON GETTING APPROVAL FOR SSI. Kaushik Mcguire Aug 02, 2016 08:24
[2016-08-02] MEDS: SELENIUM SULFIDE 1% SHAMPOO 207 ML BOTTLE TOPICAL SCH (09:00)
[2016-08-02] MEDS: levETIRAcetam 500 MG TAB PO SCH ×2 (10:35→22:18)
[2016-08-02] MEDS: METOPROLOL TARTRATE 25 MG TAB PO SCH ×2 (10:35→21:00)
[2016-08-02 20:00] VITALS: BP 123/78; PULSE 62; RESP 18; TEMP 98.5; O2SAT 95
[2016-08-03] VITALS: BP 121/81; PULSE 72; RESP 18; TEMP 98.1; O2SAT 96
[2016-08-03 08:03] VITALS: BP 118/86; PULSE 66; RESP 20; TEMP 97.9; O2SAT 98
--- NOTE | 2016-08-03 08:56 | HHI.PR ---
Subjective Remarks Patient seen and examined today. Patient denies any new complaints. No change in clinical status. Objective Vitals Vital Signs Date Time Temp Pulse Resp B/P Pulse Ox O2 Delivery O2 Flow Rate FiO2 08/03/16 00:00 98.1 72 18 121/81 96 08/02/16 20:00 98.5 62 18 123/78 95 I/O 08/02/16 08/02/16 08/02/16 08/03/16 08/03/16 08/03/16 07:00 15:00 23:00 07:00 15:00 23:00 Intake Total 725 ml 240 ml Balance 725 ml 240 ml Intake Oral 725 ml 240 ml # Voids 1 5 1 Objective Remarks GENERAL: Well-developed, well-nourished, in no acute distress. alert and orientated to person, month, year, place HEENT: Head is normocephalic without any lesions or masses noted. Facial features are symmetric. Eyes: Pupils equal round reactive to light. Extraocular muscles are intact. Conjunctivae were clear. NECK: Supple without any masses. Trachea midline no deviation. No JVD CARDIAC: Regular rhythm, regular rate. S1/S2 are heard. No murmurs gallops or rubs. LUNGS: Clear to auscultation bilaterally. No wheeze, rhonchi or rales. No use of accessory muscles on inspiration or expiration. ABDOMEN: Soft, nontender. Nondistended. Bowel sounds heard in all 4 quadrants. No organomegaly or masses. Negative rebound, negative guarding EXTREMITIES: No edema, pulses are equal bilaterally. No cyanosis or clubbing NEUROLOGY: Mood and affect appear appropriate. Cranial nerves II through XII grossly intact. Moving all extremities, speech is clear Procedures 02/14 with right frontal bur hole and left subclavian line placement 02/15 with right occipital craniectomy with SDH evacuation 02/20 tracheostomy and PEG placement 02/25 left frontal temporoparietal decompressive craniotomy 03/06 PICC 03/29 bone flap replacement Urinary Catheter: No Date of Insertion: Apr 10, 2016 Date of Removal: Apr 22, 2016 Vascular Central Line Catheter: No A/P Assessment and Plan S/P traumatic brain injury: Initial head CT with right occipital bone fracture along with intraparenchymal hemorrhage, bilateral subdural hematomas, and subarachnoid hemorrhages. Patient is status post right frontal bur hole, right occipital craniectomy with SDH evacuation, left frontal temporoparietal decompressive craniotomy, and subsequent bone flap replacement. Neurosurgery has signed off. Discharged from PT/speech therapy/occupational therapy as patient has reached maximum benefit Keppra bid for seizure prophylaxis Hypertension: Blood pressure stable, Metoprolol 12.5 mg every 12 hours Protein Calorie malnutrition: Initially requiring PEG tube, however patient had been eating well and PEG was removed 05/25. Continue current diet DVT prophylaxis: Patient is ambulating well, low risk Discharge Planning Discharge planning per case management, daily patient has been accepted at [facility], however awaiting financials to be sorted out. 08/01/16 PATIENT CONTINUES HOSPITALIZATION S/P TRAUMATIC BRAIN INJURY WITH RIGHT OCCIPITAL BONE FRACTURE ALONG WITHINTRAPARENCHYMAL HEMORRHAGE, BILATERAL SUBDURAL HEMATOMAS, AND SUBARACHNOID HEMORRHAGES. PATIENT HAS BEEN DISCHARGED FROM NEUROSURGERY AND PT, WELL SPEECH. PATIENT HAS BEEN ACCEPTED BY THE [facility] BUT STILL NO FUNDING APPROVED. [facility] [employer] IS WORKING ON GETTING APPROVAL FOR SSI. Kaushik Mcguire Aug 03, 2016 08:56
[2016-08-03] MEDS: SELENIUM SULFIDE 1% SHAMPOO 207 ML BOTTLE TOPICAL SCH (09:00)
[2016-08-03] MEDS: levETIRAcetam 500 MG TAB PO SCH ×2 (10:34→20:41)
[2016-08-03] MEDS: METOPROLOL TARTRATE 25 MG TAB PO SCH ×2 (10:34→20:42)
[2016-08-03 20:00] VITALS: BP 103/68; PULSE 79; RESP 15; TEMP 97.5; O2SAT 97
[2016-08-04 08:03] VITALS: BP 123/85; PULSE 67; RESP 20; TEMP 98; O2SAT 98
--- NOTE | 2016-08-04 08:41 | HHI.PR ---
Subjective Remarks Patient seen and examined today. Patient denies any new complaints. No change in clinical status. Objective Vitals Vital Signs Date Time Temp Pulse Resp B/P Pulse Ox O2 Delivery O2 Flow Rate FiO2 08/03/16 20:00 97.5 79 15 103/68 97 I/O 08/03/16 08/03/16 08/03/16 08/04/16 08/04/16 08/04/16 07:00 15:00 23:00 07:00 15:00 23:00 Intake Total 240 ml 1180 ml 120 ml Balance 240 ml 1180 ml 120 ml Intake Oral 240 ml 720 ml 120 ml Tube Feeding 360 ml Other 100 ml # Voids 1 2 1 2 Objective Remarks GENERAL: Well-developed, well-nourished, in no acute distress. alert and orientated to person, month, year, place HEENT: Head is normocephalic without any lesions or masses noted. Facial features are symmetric. Eyes: Pupils equal round reactive to light. Extraocular muscles are intact. Conjunctivae were clear. NECK: Supple without any masses. Trachea midline no deviation. No JVD CARDIAC: Regular rhythm, regular rate. S1/S2 are heard. No murmurs gallops or rubs. LUNGS: Clear to auscultation bilaterally. No wheeze, rhonchi or rales. No use of accessory muscles on inspiration or expiration. ABDOMEN: Soft, nontender. Nondistended. Bowel sounds heard in all 4 quadrants. No organomegaly or masses. Negative rebound, negative guarding EXTREMITIES: No edema, pulses are equal bilaterally. No cyanosis or clubbing NEUROLOGY: Mood and affect appear appropriate. Cranial nerves II through XII grossly intact. Moving all extremities, speech is clear Procedures 02/14 with right frontal bur hole and left subclavian line placement 02/15 with right occipital craniectomy with SDH evacuation 02/20 tracheostomy and PEG placement 02/25 left frontal temporoparietal decompressive craniotomy 03/06 PICC 03/29 bone flap replacement Urinary Catheter: No Date of Insertion: Apr 10, 2016 Date of Removal: Apr 22, 2016 Vascular Central Line Catheter: No A/P Assessment and Plan S/P traumatic brain injury: Initial head CT with right occipital bone fracture along with intraparenchymal hemorrhage, bilateral subdural hematomas, and subarachnoid hemorrhages. Patient is status post right frontal bur hole, right occipital craniectomy with SDH evacuation, left frontal temporoparietal decompressive craniotomy, and subsequent bone flap replacement. Neurosurgery has signed off. Discharged from PT/speech therapy/occupational therapy as patient has reached maximum benefit Keppra bid for seizure prophylaxis Hypertension: Blood pressure stable, Metoprolol 12.5 mg every 12 hours Protein Calorie malnutrition: Resolved Initially requiring PEG tube, however patient had been eating well and PEG was removed 05/25. Continue current diet DVT prophylaxis: Patient is ambulating well, low risk Discharge Planning Discharge planning per case management, daily patient has been accepted at the [facility], however awaiting financials to be sorted out. 08/01/16 PATIENT CONTINUES HOSPITALIZATION S/P TRAUMATIC BRAIN INJURY WITH RIGHT OCCIPITAL BONE FRACTURE ALONG WITHINTRAPARENCHYMAL HEMORRHAGE, BILATERAL SUBDURAL HEMATOMAS, AND SUBARACHNOID HEMORRHAGES. PATIENT HAS BEEN DISCHARGED FROM NEUROSURGERY AND PT, WELL SPEECH. PATIENT HAS BEEN ACCEPTED BY THE [place] BUT STILL NO FUNDING APPROVED. [facility] IS WORKING ON GETTING APPROVAL FOR SSI. Kaushik Mcguire Aug 04, 2016 08:41
[2016-08-04] MEDS: SELENIUM SULFIDE 1% SHAMPOO 207 ML BOTTLE TOPICAL SCH (09:00)
[2016-08-04] MEDS: METOPROLOL TARTRATE 25 MG TAB PO SCH ×2 (09:43→21:08)
[2016-08-04] MEDS: levETIRAcetam 500 MG TAB PO SCH ×2 (09:44→21:08)
[2016-08-04 20:00] VITALS: BP 129/84; PULSE 57; RESP 20; TEMP 98.3; O2SAT 97
[2016-08-05 08:00] VITALS: BP 122/66; PULSE 78; RESP 16; TEMP 98.1; O2SAT 95
--- NOTE | 2016-08-05 08:22 | HHI.PR ---
Subjective Remarks Patient seen and examined today. Patient denies any new complaints. No change in clinical status. Objective Vitals Vital Signs Date Time Temp Pulse Resp B/P Pulse Ox O2 Delivery O2 Flow Rate FiO2 08/04/16 20:00 98.3 57 20 129/84 97 I/O 08/04/16 08/04/16 08/04/16 08/05/16 08/05/16 08/05/16 07:00 15:00 23:00 07:00 15:00 23:00 Intake Total 120 ml 240 ml Balance 120 ml 240 ml Intake Oral 120 ml 240 ml # Voids 2 1 5 # Bowel Movements 1 Objective Remarks GENERAL: Well-developed, well-nourished, in no acute distress. alert and orientated to person, month, year, place HEENT: Head is normocephalic without any lesions or masses noted. Facial features are symmetric. Eyes: Pupils equal round reactive to light. Extraocular muscles are intact. Conjunctivae were clear. NECK: Supple without any masses. Trachea midline no deviation. No JVD CARDIAC: Regular rhythm, regular rate. S1/S2 are heard. No murmurs gallops or rubs. LUNGS: Clear to auscultation bilaterally. No wheeze, rhonchi or rales. No use of accessory muscles on inspiration or expiration. ABDOMEN: Soft, nontender. Nondistended. Bowel sounds heard in all 4 quadrants. No organomegaly or masses. Negative rebound, negative guarding EXTREMITIES: No edema, pulses are equal bilaterally. No cyanosis or clubbing NEUROLOGY: Mood and affect appear appropriate. Cranial nerves II through XII grossly intact. Moving all extremities, speech is clear Procedures 02/14 with right frontal bur hole and left subclavian line placement 02/15 with right occipital craniectomy with SDH evacuation 02/20 tracheostomy and PEG placement 02/25 left frontal temporoparietal decompressive craniotomy 03/06 PICC 03/29 bone flap replacement Urinary Catheter: No Date of Insertion: Apr 10, 2016 Date of Removal: Apr 22, 2016 Vascular Central Line Catheter: No A/P Assessment and Plan S/P traumatic brain injury: Initial head CT with right occipital bone fracture along with intraparenchymal hemorrhage, bilateral subdural hematomas, and subarachnoid hemorrhages. Patient is status post right frontal bur hole, right occipital craniectomy with SDH evacuation, left frontal temporoparietal decompressive craniotomy, and subsequent bone flap replacement. Neurosurgery has signed off. Discharged from PT/speech therapy/occupational therapy as patient has reached maximum benefit Keppra bid for seizure prophylaxis Hypertension: Stable Blood pressure stable, Metoprolol 12.5 mg every 12 hours Protein Calorie malnutrition: Resolved Initially requiring PEG tube, however patient had been eating well and PEG was removed 05/25. Continue current diet DVT prophylaxis: Patient is ambulating well, low risk Discharge Planning Discharge planning per case management, daily patient has been accepted at the [facility], however awaiting financials to be sorted out. 08/01/16 PATIENT CONTINUES HOSPITALIZATION S/P TRAUMATIC BRAIN INJURY WITH RIGHT OCCIPITAL BONE FRACTURE ALONG WITHINTRAPARENCHYMAL HEMORRHAGE, BILATERAL SUBDURAL HEMATOMAS, AND SUBARACHNOID HEMORRHAGES. PATIENT HAS BEEN DISCHARGED FROM NEUROSURGERY AND PT, WELL SPEECH. PATIENT HAS BEEN ACCEPTED BY THE [facility] BUT STILL NO FUNDING APPROVED. [facility] [employer] IS WORKING ON GETTING APPROVAL FOR SSI. Kaushik Mcguire Aug 05, 2016 08:22
[2016-08-05] MEDS: SELENIUM SULFIDE 1% SHAMPOO 207 ML BOTTLE TOPICAL SCH (09:00)
[2016-08-05] MEDS: METOPROLOL TARTRATE 25 MG TAB PO SCH ×2 (10:05→21:29)
[2016-08-05] MEDS: levETIRAcetam 500 MG TAB PO SCH ×2 (10:05→21:28)
[2016-08-05 18:00] VITALS: BP 123/88; PULSE 61; RESP 17; TEMP 98; O2SAT 96
[2016-08-06] MEDS: SELENIUM SULFIDE 1% SHAMPOO 207 ML BOTTLE TOPICAL SCH (09:00)
[2016-08-06] MEDS: levETIRAcetam 500 MG TAB PO SCH ×2 (09:26→21:48)
[2016-08-06] MEDS: METOPROLOL TARTRATE 25 MG TAB PO SCH ×2 (09:26→21:48)
[2016-08-06 09:38] VITALS: BP 116/88; PULSE 65; RESP 20; TEMP 97.6; O2SAT 97
--- NOTE | 2016-08-06 18:14 | HHI.PR ---
Subjective Remarks No acute complaints. No change in clinical status. Objective Vitals Vital Signs Date Time Temp Pulse Resp B/P Pulse Ox O2 Delivery O2 Flow Rate FiO2 08/06/16 09:38 97.6 65 20 116/88 97 I/O 08/05/16 08/05/16 08/05/16 08/06/16 08/06/16 08/06/16 07:00 15:00 23:00 07:00 15:00 23:00 Intake Total 240 ml 1400 ml 750 ml Balance 240 ml 1400 ml 750 ml Intake Oral 240 ml 1400 ml 750 ml # Voids 5 4 4 # Bowel Movements 1 1 Objective Remarks GENERAL: Well-nourished, well-developed patient in no apparent distress. SKIN: Warm and dry. CARDIOVASCULAR: Regular rate and rhythm. RESPIRATORY: No accessory muscle use. Clear to auscultation. Breath sounds equal bilaterally. GASTROINTESTINAL: Normoactive bowel sounds. Abdomen soft, non-tender, nondistended. NEUROLOGICAL: Awake and alert. Motor grossly within normal limits. Normal speech. PSYCHIATRIC: Appropriate mood and affect. Procedures 02/14 with right frontal bur hole and left subclavian line placement 02/15 with right occipital craniectomy with SDH evacuation 02/20 tracheostomy and PEG placement 02/25 left frontal temporoparietal decompressive craniotomy 03/06 PICC 03/29 bone flap replacement Urinary Catheter: No Date of Insertion: Apr 10, 2016 Date of Removal: Apr 22, 2016 Vascular Central Line Catheter: No A/P Problem List: (1) HTN (hypertension) ICD Code: I10 Status: Chronic (2) Traumatic brain injury ICD Code: S06.9X9A Status: Acute (3) Insomnia ICD Code: G47.00 Status: Acute (4) Urinary retention ICD Code: R33.9 Status: Resolved (5) Protein calorie malnutrition ICD Code: E46 Status: Acute Assessment and Plan S/P traumatic brain injury: Initial head CT with right occipital bone fracture along with intraparenchymal hemorrhage, bilateral subdural hematomas, and subarachnoid hemorrhages. Patient is status post right frontal bur hole, right occipital craniectomy with SDH evacuation, left frontal temporoparietal decompressive craniotomy, and subsequent bone flap replacement. Neurosurgery has signed off. Discharged from PT/speech therapy/occupational therapy as patient has reached maximum benefit here Keppra bid for seizure prophylaxis Hypertension: BP good this morning Continue Metoprolol 12.5 mg every 12 hours Continue to monitor Protein Calorie malnutrition: Initially requiring PEG tube, however patient had been eating well and PEG was removed 05/25. Continue current diet; patient states he does not like Ensure. DVT prophylaxis: Patient is ambulating well, low risk Discharge Planning Patient apparently gets assisted money each month and healthcare surrogate is trying to find card. Once this is sorted, patient will be able to be placed. Problem Qualifiers (1) HTN (hypertension): Qualified Code: I10 - Essential hypertension Christina Hoff Aug 06, 2016 18:14
[2016-08-06 20:00] VITALS: BP 124/84; PULSE 62; RESP 16; TEMP 97.7; O2SAT 97
[2016-08-07] MEDS: SELENIUM SULFIDE 1% SHAMPOO 207 ML BOTTLE TOPICAL SCH (09:00)
[2016-08-07] MEDS: METOPROLOL TARTRATE 25 MG TAB PO SCH ×2 (09:24→20:55)
[2016-08-07] MEDS: levETIRAcetam 500 MG TAB PO SCH ×2 (09:24→20:55)
--- NOTE | 2016-08-07 10:27 | HHI.PR ---
Subjective Remarks No acute complaints. No change in clinical status. Objective Vitals Vital Signs Date Time Temp Pulse Resp B/P Pulse Ox O2 Delivery O2 Flow Rate FiO2 08/06/16 20:00 97.7 62 16 124/84 97 I/O 08/06/16 08/06/16 08/06/16 08/07/16 08/07/16 08/07/16 07:00 15:00 23:00 07:00 15:00 23:00 Intake Total 750 ml 600 ml 300 ml Balance 750 ml 600 ml 300 ml Intake Oral 750 ml 600 ml 300 ml # Voids 4 3 2 # Bowel Movements 1 Objective Remarks GENERAL: Well-nourished, well-developed patient in no apparent distress. SKIN: Warm and dry. CARDIOVASCULAR: Regular rate and rhythm. RESPIRATORY: No accessory muscle use. Clear to auscultation. Breath sounds equal bilaterally. GASTROINTESTINAL: Abdomen soft, non-tender, nondistended. NEUROLOGICAL: Awake and alert. Motor grossly within normal limits. Normal speech. PSYCHIATRIC: Appropriate mood and affect. Procedures 02/14 with right frontal bur hole and left subclavian line placement 02/15 with right occipital craniectomy with SDH evacuation 02/20 tracheostomy and PEG placement 02/25 left frontal temporoparietal decompressive craniotomy 03/06 PICC 03/29 bone flap replacement Urinary Catheter: No Date of Insertion: Apr 10, 2016 Date of Removal: Apr 22, 2016 Vascular Central Line Catheter: No A/P Problem List: (1) HTN (hypertension) ICD Code: I10 Status: Chronic (2) Traumatic brain injury ICD Code: S06.9X9A Status: Acute (3) Insomnia ICD Code: G47.00 Status: Acute (4) Urinary retention ICD Code: R33.9 Status: Resolved (5) Protein calorie malnutrition ICD Code: E46 Status: Acute Assessment and Plan S/P traumatic brain injury: Initial head CT with right occipital bone fracture along with intraparenchymal hemorrhage, bilateral subdural hematomas, and subarachnoid hemorrhages. Patient is status post right frontal bur hole, right occipital craniectomy with SDH evacuation, left frontal temporoparietal decompressive craniotomy, and subsequent bone flap replacement. Neurosurgery has signed off. Discharged from PT/speech therapy/occupational therapy as patient has reached maximum benefit here Keppra bid for seizure prophylaxis Hypertension: BP stable Continue Metoprolol 12.5 mg every 12 hours Continue to monitor Protein Calorie malnutrition: Initially requiring PEG tube, however patient had been eating well and PEG was removed 05/25. Continue current diet; patient states he does not like Ensure. DVT prophylaxis: Patient is ambulating well, low risk Discharge Planning Patient apparently gets senior care money each month and healthcare surrogate is trying to find card. Once this is sorted, patient will be able to be placed. Problem Qualifiers (1) HTN (hypertension): Qualified Code: I10 - Essential hypertension Christina Hoff Aug 07, 2016 10:27
[2016-08-07 11:15] VITALS: BP 122/93; PULSE 88; RESP 20; TEMP 97.4; O2SAT 100
[2016-08-07 20:00] VITALS: BP 133/83; PULSE 65; RESP 18; TEMP 96.1; O2SAT 98
[2016-08-08 08:00] VITALS: BP 115/86; PULSE 63; RESP 18; TEMP 98.1; O2SAT 97
[2016-08-08] MEDS: SELENIUM SULFIDE 1% SHAMPOO 207 ML BOTTLE TOPICAL SCH (09:00)
--- NOTE | 2016-08-08 10:20 | HHI.PR ---
Subjective Remarks No acute complaints. No change in clinical status. Objective Vitals Vital Signs Date Time Temp Pulse Resp B/P Pulse Ox O2 Delivery O2 Flow Rate FiO2 08/08/16 08:00 98.1 63 18 115/86 97 08/07/16 20:00 96.1 65 18 133/83 98 08/07/16 11:15 97.4 88 20 122/93 100 I/O 08/07/16 08/07/16 08/07/16 08/08/16 08/08/16 08/08/16 06:59 14:59 22:59 06:59 14:59 22:59 Intake Total 300 ml 800 ml 500 ml 300 ml Balance 300 ml 800 ml 500 ml 300 ml Intake Oral 300 ml 800 ml 500 ml 300 ml # Voids 2 4 4 2 # Bowel Movements 1 0 Objective Remarks GENERAL: Well-nourished, well-developed patient in no apparent distress. SKIN: Warm and dry. CARDIOVASCULAR: Regular rate and rhythm. RESPIRATORY: No accessory muscle use. Clear to auscultation. Breath sounds equal bilaterally. GASTROINTESTINAL: Abdomen soft, non-tender, nondistended. NEUROLOGICAL: Awake and alert. Motor grossly within normal limits. Normal speech. PSYCHIATRIC: Appropriate mood and affect. Procedures 02/14 with right frontal bur hole and left subclavian line placement 02/15 with right occipital craniectomy with SDH evacuation 02/20 tracheostomy and PEG placement 02/25 left frontal temporoparietal decompressive craniotomy 03/06 PICC 03/29 bone flap replacement Urinary Catheter: No Date of Insertion: Apr 10, 2016 Date of Removal: Apr 22, 2016 Vascular Central Line Catheter: No A/P Problem List: (1) HTN (hypertension) ICD Code: I10 Status: Chronic (2) Traumatic brain injury ICD Code: S06.9X9A Status: Acute (3) Insomnia ICD Code: G47.00 Status: Acute (4) Urinary retention ICD Code: R33.9 Status: Resolved (5) Protein calorie malnutrition ICD Code: E46 Status: Acute Assessment and Plan S/P traumatic brain injury: Initial head CT with right occipital bone fracture along with intraparenchymal hemorrhage, bilateral subdural hematomas, and subarachnoid hemorrhages. Patient is status post right frontal bur hole, right occipital craniectomy with SDH evacuation, left frontal temporoparietal decompressive craniotomy, and subsequent bone flap replacement. Neurosurgery has signed off. Discharged from PT/speech therapy/occupational therapy as patient has reached maximum benefit here Keppra bid for seizure prophylaxis Hypertension: BP stable Continue Metoprolol 12.5 mg every 12 hours Continue to monitor Protein Calorie malnutrition: Initially requiring PEG tube, however patient had been eating well and PEG was removed 05/25. Continue current diet; patient states he does not like Ensure. DVT prophylaxis: Patient is ambulating well, low risk Discharge Planning Patient apparently gets long term money each month and healthcare surrogate is trying to find card. Once this is sorted, patient will be able to be placed. Problem Qualifiers (1) HTN (hypertension): Qualified Code: I10 - Essential hypertension Christina Hoff Aug 08, 2016 10:20
[2016-08-08] MEDS: METOPROLOL TARTRATE 25 MG TAB PO SCH ×3 (10:36→20:44)
[2016-08-08] MEDS: levETIRAcetam 500 MG TAB PO SCH ×2 (10:37→20:31)
[2016-08-08 20:00] VITALS: BP 128/85; PULSE 56; RESP 19; TEMP 97.3; O2SAT 98
[2016-08-09] MEDS: SELENIUM SULFIDE 1% SHAMPOO 207 ML BOTTLE TOPICAL SCH (09:00)
[2016-08-09] MEDS: levETIRAcetam 500 MG TAB PO SCH ×2 (09:45→22:00)
[2016-08-09] MEDS: METOPROLOL TARTRATE 25 MG TAB PO SCH ×2 (09:46→22:00)
[2016-08-09 10:30] VITALS: BP 121/94; PULSE 99; RESP 17; TEMP 96.1; O2SAT 97
--- NOTE | 2016-08-09 13:52 | HHI.PR ---
Subjective Remarks S/p intracranial hemorrhage. Patient complains of some neck pain in the morning but states it improves throughout the day. Objective Vitals Vital Signs Date Time Temp Pulse Resp B/P Pulse Ox O2 Delivery O2 Flow Rate FiO2 08/08/16 20:00 97.3 56 19 128/85 98 I/O 08/08/16 08/08/16 08/08/16 08/09/16 08/09/16 08/09/16 06:59 14:59 22:59 06:59 14:59 22:59 Intake Total 300 ml 240 ml 240 ml Balance 300 ml 240 ml 240 ml Intake Oral 300 ml 240 ml 240 ml # Voids 2 2 2 # Bowel Movements 0 0 1 Objective Remarks GENERAL: Well-nourished, well-developed patient in no apparent distress. SKIN: Warm and dry. NECK: Nontender over cervical spine. Tender over right paracervical muscles. Mildly limited lateral range of motion to the left. CARDIOVASCULAR: Regular rate and rhythm. RESPIRATORY: No accessory muscle use. Clear to auscultation. Breath sounds equal bilaterally. GASTROINTESTINAL: Normoactive bowel sounds. Abdomen soft, non-tender, nondistended. NEUROLOGICAL: Awake and alert. Motor grossly within normal limits. Normal speech. PSYCHIATRIC: Appropriate mood and affect. Procedures 02/14 with right frontal bur hole and left subclavian line placement 02/15 with right occipital craniectomy with SDH evacuation 02/20 tracheostomy and PEG placement 02/25 left frontal temporoparietal decompressive craniotomy 03/06 PICC 03/29 bone flap replacement Date of Insertion: Apr 10, 2016 Date of Removal: Apr 22, 2016 A/P Problem List: (1) HTN (hypertension) ICD Code: I10 Status: Chronic (2) Traumatic brain injury ICD Code: S06.9X9A Status: Acute (3) Insomnia ICD Code: G47.00 Status: Acute (4) Urinary retention ICD Code: R33.9 Status: Resolved (5) Protein calorie malnutrition ICD Code: E46 Status: Acute Assessment and Plan S/P traumatic brain injury: Initial head CT with right occipital bone fracture along with intraparenchymal hemorrhage, bilateral subdural hematomas, and subarachnoid hemorrhages. Patient is status post right frontal bur hole, right occipital craniectomy with SDH evacuation, left frontal temporoparietal decompressive craniotomy, and subsequent bone flap replacement. Neurosurgery has signed off. Discharged from PT/speech therapy/occupational therapy as patient has reached maximum benefit here Keppra bid for seizure prophylaxis Hypertension: BP stable Continue Metoprolol 12.5 mg every 12 hours Continue to monitor Protein Calorie malnutrition: Initially requiring PEG tube, however patient had been eating well and PEG was removed 05/25. Continue current diet; patient states he does not like Ensure. Cervical strain: No bony tenderness. -Will order Norflex 100 mg bid. DVT prophylaxis: Patient is ambulating well, low risk Discharge Planning Patient apparently gets senior care money each month and healthcare surrogate is trying to find card. Once this is sorted, patient will be able to be placed. Problem Qualifiers (1) HTN (hypertension): Qualified Code: I10 - Essential hypertension Christina Hoff Aug 09, 2016 13:52
[2016-08-09 20:00] VITALS: BP 124/81; PULSE 62; RESP 20; TEMP 96.8; O2SAT 98
[2016-08-09] MEDS: ORPHENADRINE CITRATE 100 MG SUSTAINED RELEASE TAB PO PRN (22:07)
[2016-08-10 08:00] VITALS: BP 121/80; PULSE 58; RESP 16; TEMP 97; O2SAT 99
[2016-08-10] MEDS: SELENIUM SULFIDE 1% SHAMPOO 207 ML BOTTLE TOPICAL SCH (09:00)
[2016-08-10] MEDS: levETIRAcetam 500 MG TAB PO SCH ×2 (10:07→21:52)
[2016-08-10] MEDS: METOPROLOL TARTRATE 25 MG TAB PO SCH ×2 (10:09→21:53)
[2016-08-10] MEDS: ORPHENADRINE CITRATE 100 MG SUSTAINED RELEASE TAB PO PRN (10:11)
--- NOTE | 2016-08-10 13:51 | HHI.PR ---
Subjective Remarks Follow-up for neck pain. I ordered Norflex for the patient yesterday, but he states he was awake last night and feels it was the medication that kept him awake. He only admits to minimal improvement with the Norflex. Objective Vitals Vital Signs Date Time Temp Pulse Resp B/P Pulse Ox O2 Delivery O2 Flow Rate FiO2 08/10/16 08:00 97.0 58 16 121/80 99 08/09/16 20:00 96.8 62 20 124/81 98 I/O 08/09/16 08/09/16 08/09/16 08/10/16 08/10/16 08/10/16 07:00 15:00 23:00 07:00 15:00 23:00 Intake Total 240 ml 450 ml 350 ml Output Total 820 ml Balance 240 ml 450 ml -470 ml Intake Oral 240 ml 450 ml 350 ml Output Urine Total 820 ml # Voids 2 # Bowel Movements 1 1 Objective Remarks GENERAL: Well-nourished, well-developed patient in no apparent distress. SKIN: Warm and dry. NECK: Nontender over cervical spine. Tender over right and left paracervical muscles. Mildly limited lateral range of motion in either direction. CARDIOVASCULAR: Regular rate and rhythm. RESPIRATORY: No accessory muscle use. Clear to auscultation. Breath sounds equal bilaterally. GASTROINTESTINAL: Abdomen soft, non-tender, nondistended. NEUROLOGICAL: Awake and alert. Motor grossly within normal limits. Normal speech. PSYCHIATRIC: Appropriate mood and affect. Procedures 02/14 with right frontal bur hole and left subclavian line placement 02/15 with right occipital craniectomy with SDH evacuation 02/20 tracheostomy and PEG placement 02/25 left frontal temporoparietal decompressive craniotomy 03/06 PICC 03/29 bone flap replacement Urinary Catheter: No Date of Insertion: Apr 10, 2016 Date of Removal: Apr 22, 2016 Vascular Central Line Catheter: No A/P Problem List: (1) HTN (hypertension) ICD Code: I10 Status: Chronic (2) Traumatic brain injury ICD Code: S06.9X9A Status: Acute (3) Insomnia ICD Code: G47.00 Status: Acute (4) Urinary retention ICD Code: R33.9 Status: Resolved (5) Protein calorie malnutrition ICD Code: E46 Status: Acute Assessment and Plan S/P traumatic brain injury: Initial head CT with right occipital bone fracture along with intraparenchymal hemorrhage, bilateral subdural hematomas, and subarachnoid hemorrhages. Patient is status post right frontal bur hole, right occipital craniectomy with SDH evacuation, left frontal temporoparietal decompressive craniotomy, and subsequent bone flap replacement. Neurosurgery has signed off. Discharged from PT/speech therapy/occupational therapy as patient has reached maximum benefit here Keppra bid for seizure prophylaxis Hypertension: BP stable Continue Metoprolol 12.5 mg every 12 hours Continue to monitor Protein Calorie malnutrition: Initially requiring PEG tube, however patient had been eating well and PEG was removed 05/25. Continue current diet; patient states he does not like Ensure. Cervical strain: No bony tenderness. -Norflex was started last night, but patient does not feel it helped much. Will switch to Flexeril 5 mg tid prn. Patient advised this can cause increased sedation. DVT prophylaxis: Patient is ambulating well, low risk Discharge Planning Patient apparently gets shelter money each month and healthcare surrogate is trying to find card. Once this is sorted, patient will be able to be placed. Problem Qualifiers (1) HTN (hypertension): Qualified Code: I10 - Essential hypertension Christina Hoff Aug 10, 2016 13:51
[2016-08-10] MEDS ORDERED: PILL SPLITTER OTHER PRN (17:15)
[2016-08-10 20:00] VITALS: BP 125/78; PULSE 62; RESP 18; TEMP 96.2; O2SAT 99
[2016-08-10] MEDS: CYCLOBENZAPRINE HCL 10 MG TAB PO PRN (21:52)
[2016-08-11 08:43] VITALS: BP 118/86; PULSE 70; RESP 20; TEMP 96.3; O2SAT 97
[2016-08-11] MEDS: SELENIUM SULFIDE 1% SHAMPOO 207 ML BOTTLE TOPICAL SCH (09:00)
[2016-08-11] MEDS: levETIRAcetam 500 MG TAB PO SCH ×2 (09:27→22:09)
[2016-08-11] MEDS: METOPROLOL TARTRATE 25 MG TAB PO SCH ×2 (09:27→22:09)
[2016-08-11] MEDS: CYCLOBENZAPRINE HCL 10 MG TAB PO PRN ×2 (09:32→22:10)
--- NOTE | 2016-08-11 09:54 | HHI.PR ---
Subjective Remarks Patient was started on Flexeril 5 mg last night and he states it did help but he still has neck pain. Objective Vitals Vital Signs Date Time Temp Pulse Resp B/P Pulse Ox O2 Delivery O2 Flow Rate FiO2 08/11/16 08:43 96.3 70 20 118/86 97 08/10/16 20:00 96.2 62 18 125/78 99 I/O 08/10/16 08/10/16 08/10/16 08/11/16 08/11/16 08/11/16 07:00 15:00 23:00 07:00 15:00 23:00 Intake Total 350 ml 0 ml 0 ml 0 ml Output Total 820 ml Balance -470 ml 0 ml 0 ml 0 ml Intake Oral 350 ml IV Total 0 ml 0 ml 0 ml Output Urine Total 820 ml # Bowel Movements 1 Objective Remarks GENERAL: Well-nourished, well-developed patient in no apparent distress. SKIN: Warm and dry. NECK: Nontender over cervical spine. Tender over right and left paracervical muscles. Mildly limited lateral range of motion in either direction. CARDIOVASCULAR: Regular rate and rhythm. RESPIRATORY: No accessory muscle use. Clear to auscultation. Breath sounds equal bilaterally. GASTROINTESTINAL: Abdomen soft, non-tender, nondistended. NEUROLOGICAL: Awake and alert. Motor grossly within normal limits. Normal speech. PSYCHIATRIC: Appropriate mood and affect. Procedures 02/14 with right frontal bur hole and left subclavian line placement 02/15 with right occipital craniectomy with SDH evacuation 02/20 tracheostomy and PEG placement 02/25 left frontal temporoparietal decompressive craniotomy 03/06 PICC 03/29 bone flap replacement Urinary Catheter: No Date of Insertion: Apr 10, 2016 Date of Removal: Apr 22, 2016 Vascular Central Line Catheter: No A/P Problem List: (1) HTN (hypertension) ICD Code: I10 Status: Chronic (2) Traumatic brain injury ICD Code: S06.9X9A Status: Acute (3) Insomnia ICD Code: G47.00 Status: Acute (4) Urinary retention ICD Code: R33.9 Status: Resolved (5) Protein calorie malnutrition ICD Code: E46 Status: Acute (6) Cervical muscle strain ICD Code: S16.1XXA Status: Acute Assessment and Plan S/P traumatic brain injury: Initial head CT with right occipital bone fracture along with intraparenchymal hemorrhage, bilateral subdural hematomas, and subarachnoid hemorrhages. Patient is status post right frontal bur hole, right occipital craniectomy with SDH evacuation, left frontal temporoparietal decompressive craniotomy, and subsequent bone flap replacement. Neurosurgery has signed off. Discharged from PT/speech therapy/occupational therapy as patient has reached maximum benefit here Keppra bid for seizure prophylaxis Hypertension: BP stable Continue Metoprolol 12.5 mg every 12 hours Continue to monitor Protein Calorie malnutrition: Initially requiring PEG tube, however patient had been eating well and PEG was removed 05/25. Continue current diet; patient states he does not like Ensure. Cervical strain: No bony tenderness. -Norflex was started, but patient does not feel it helped much. Switched to Flexeril 5 mg tid prn. Patient admits to some improvement without significant sedation, so will increase to 10 mg dose. DVT prophylaxis: Patient is ambulating well, low risk Discharge Planning Patient apparently gets [facility] money each month and healthcare surrogate is trying to find card. Once this is sorted, patient will be able to be placed. Problem Qualifiers (1) HTN (hypertension): Qualified Code: I10 - Essential hypertension Christina Hoff Aug 11, 2016 09:54
[2016-08-11 20:00] VITALS: BP 129/80; PULSE 62; RESP 18; TEMP 97.5; O2SAT 98
[2016-08-12] MEDS: CYCLOBENZAPRINE HCL 10 MG TAB PO PRN ×2 (06:35→14:53)
[2016-08-12 08:00] VITALS: BP 125/85; PULSE 56; RESP 18; TEMP 98; O2SAT 97
[2016-08-12] MEDS: levETIRAcetam 500 MG TAB PO SCH ×2 (08:51→21:10)
[2016-08-12] MEDS: METOPROLOL TARTRATE 25 MG TAB PO SCH ×2 (08:51→21:10)
[2016-08-12] MEDS: SELENIUM SULFIDE 1% SHAMPOO 207 ML BOTTLE TOPICAL SCH (08:53)
--- NOTE | 2016-08-12 10:10 | HHI.PR ---
Subjective Remarks No acute complaints. No change in clinical status. Objective Vitals Vital Signs Date Time Temp Pulse Resp B/P Pulse Ox O2 Delivery O2 Flow Rate FiO2 08/12/16 08:00 98.0 56 18 125/85 97 08/11/16 20:00 97.5 62 18 129/80 98 I/O 08/11/16 08/11/16 08/11/16 08/12/16 08/12/16 08/12/16 07:00 15:00 23:00 07:00 15:00 23:00 Intake Total 0 ml 630 ml 710 ml 250 ml 360 ml Balance 0 ml 630 ml 710 ml 250 ml 360 ml Intake Oral 630 ml 710 ml 250 ml 360 ml IV Total 0 ml 0 ml # Voids 3 3 1 Objective Remarks GENERAL: Well-nourished, well-developed patient in no apparent distress eating breakfast when I enter the room. SKIN: Warm and dry. CARDIOVASCULAR: Regular rate and rhythm. RESPIRATORY: No accessory muscle use. Clear to auscultation. Breath sounds equal bilaterally. GASTROINTESTINAL: Abdomen soft, non-tender, nondistended. NEUROLOGICAL: Awake and alert. Motor grossly within normal limits. Normal speech. PSYCHIATRIC: Appropriate mood and affect. Procedures 02/14 with right frontal bur hole and left subclavian line placement 02/15 with right occipital craniectomy with SDH evacuation 02/20 tracheostomy and PEG placement 02/25 left frontal temporoparietal decompressive craniotomy 03/06 PICC 03/29 bone flap replacement Urinary Catheter: No Date of Insertion: Apr 10, 2016 Date of Removal: Apr 22, 2016 Vascular Central Line Catheter: No A/P Problem List: (1) HTN (hypertension) ICD Code: I10 Status: Chronic (2) Traumatic brain injury ICD Code: S06.9X9A Status: Acute (3) Insomnia ICD Code: G47.00 Status: Acute (4) Urinary retention ICD Code: R33.9 Status: Resolved (5) Protein calorie malnutrition ICD Code: E46 Status: Acute (6) Cervical muscle strain ICD Code: S16.1XXA Status: Acute Assessment and Plan S/P traumatic brain injury: Initial head CT with right occipital bone fracture along with intraparenchymal hemorrhage, bilateral subdural hematomas, and subarachnoid hemorrhages. Patient is status post right frontal bur hole, right occipital craniectomy with SDH evacuation, left frontal temporoparietal decompressive craniotomy, and subsequent bone flap replacement. Neurosurgery has signed off. Discharged from PT/speech therapy/occupational therapy as patient has reached maximum benefit here Keppra bid for seizure prophylaxis Hypertension: BP stable Continue Metoprolol 12.5 mg every 12 hours Continue to monitor Protein Calorie malnutrition: Initially requiring PEG tube, however patient had been eating well and PEG was removed 05/25. Continue current diet; patient states he does not like Ensure. Cervical strain: No bony tenderness. -Continue Flexeril 10 mg by mouth q8h prn. DVT prophylaxis: Patient is ambulating well, low risk Discharge Planning Patient apparently gets early half-way money each month and healthcare surrogate is trying to find card. Once this is sorted, patient will be able to be placed. Problem Qualifiers (1) HTN (hypertension): Qualified Code: I10 - Essential hypertension Christina Hoff Aug 12, 2016 10:10
[2016-08-12 20:00] VITALS: BP 122/77; PULSE 69; RESP 18; TEMP 96; O2SAT 96
[2016-08-13] MEDS: CYCLOBENZAPRINE HCL 10 MG TAB PO PRN ×2 (00:50→08:17)
[2016-08-13] MEDS: levETIRAcetam 500 MG TAB PO SCH ×2 (08:18→20:15)
[2016-08-13] MEDS: METOPROLOL TARTRATE 25 MG TAB PO SCH ×2 (08:18→20:15)
[2016-08-13] MEDS: SELENIUM SULFIDE 1% SHAMPOO 207 ML BOTTLE TOPICAL SCH (08:19)
[2016-08-13 10:13] VITALS: BP 109/80; PULSE 72; RESP 20; TEMP 97.4; O2SAT 97
--- NOTE | 2016-08-13 10:42 | HHI.PR ---
Subjective Remarks Patient seen and examined today. Patient states that he has chronic neck pain even when he was at home. He was started on Flexeril without any significant improvement because he states that he still experiencing the neck pain. I discussed with him that he needs to get out of bed and ambulate more. The longer he lays in bed more stiff and pain he did experience with his chronic neck pain. Objective Vitals Vital Signs Date Time Temp Pulse Resp B/P Pulse Ox O2 Delivery O2 Flow Rate FiO2 08/13/16 10:13 97.4 72 20 109/80 97 08/12/16 20:00 96.0 69 18 122/77 96 I/O 08/12/16 08/12/16 08/12/16 08/13/16 08/13/16 08/13/16 06:59 14:59 22:59 06:59 14:59 22:59 Intake Total 250 ml 360 ml 1400 ml 480 ml Balance 250 ml 360 ml 1400 ml 480 ml Intake Oral 250 ml 360 ml 1400 ml 480 ml # Voids 1 7 2 # Bowel Movements 0 0 Objective Remarks GENERAL: Well-developed, well-nourished, in no acute distress. alert and orientated to person, month, year, place HEENT: Head is normocephalic without any lesions or masses noted. Facial features are symmetric. Eyes: Pupils equal round reactive to light. Extraocular muscles are intact. Conjunctivae were clear. NECK: Supple without any masses. Trachea midline no deviation. No JVD CARDIAC: Regular rhythm, regular rate. S1/S2 are heard. No murmurs gallops or rubs. LUNGS: Clear to auscultation bilaterally. No wheeze, rhonchi or rales. No use of accessory muscles on inspiration or expiration. ABDOMEN: Soft, nontender. Nondistended. Bowel sounds heard in all 4 quadrants. No organomegaly or masses. Negative rebound, negative guarding EXTREMITIES: No edema, pulses are equal bilaterally. No cyanosis or clubbing NEUROLOGY: Mood and affect appear appropriate. Cranial nerves II through XII grossly intact. Moving all extremities, speech is clear Procedures 02/14 with right frontal bur hole and left subclavian line placement 02/15 with right occipital craniectomy with SDH evacuation 02/20 tracheostomy and PEG placement 02/25 left frontal temporoparietal decompressive craniotomy 03/06 PICC 03/29 bone flap replacement Urinary Catheter: No Date of Insertion: Apr 10, 2016 Date of Removal: Apr 22, 2016 Vascular Central Line Catheter: No A/P Assessment and Plan S/P traumatic brain injury: Initial head CT with right occipital bone fracture along with intraparenchymal hemorrhage, bilateral subdural hematomas, and subarachnoid hemorrhages. Patient is status post right frontal bur hole, right occipital craniectomy with SDH evacuation, left frontal temporoparietal decompressive craniotomy, and subsequent bone flap replacement. Neurosurgery has signed off. Discharged from PT/speech therapy/occupational therapy as patient has reached maximum benefit Keppra bid for seizure prophylaxis Hypertension: Stable Blood pressure stable, Metoprolol 12.5 mg every 12 hours Protein Calorie malnutrition: Resolved Initially requiring PEG tube, however patient had been eating well and PEG was removed 05/25. Continue current diet DVT prophylaxis: Patient is ambulating well, low risk Discharge Planning Discharge planning per case management, daily patient has been accepted at the [facility], however awaiting financials to be sorted out. 08/06/16 CM DIRECTOR, PAXTON,FOUND OUT THAT PATIENT'S PRESENTATION TEAM MEMBER SPOKE TO PATIENT AND HIS HEALTHCARE SURROGATE TO DISCOVER THAT PATIENT HAS BEEN RECEIVING EARLY LONG-TERM BENEFITS FOR OVER A YEAR OF $1126/MONTH WHICH IS MORE THAN HIS SSI MAKING HIM INELIGIBLE. THE PATIENT AND HIS HC SURROGATE WERE AWARE OF THIS AND ARE ATTEMPTING TODETERMINE WHERE THE CARD IS TO ACCESS THE MONEY. PLACE COULD OCCUR SOON ONCE THIS IS RESOLVED. Kaushik Mcguire Aug 13, 2016 10:42
[2016-08-13 20:00] VITALS: BP 135/89; PULSE 80; RESP 20; TEMP 96.6; O2SAT 100
--- NOTE | 2016-08-14 07:59 | HHI.PR ---
Subjective Remarks Patient seen and examined today. Patient denies any new complaints. No change in clinical status. Objective Vitals Vital Signs Date Time Temp Pulse Resp B/P Pulse Ox O2 Delivery O2 Flow Rate FiO2 08/13/16 20:00 96.6 80 20 135/89 100 08/13/16 10:13 97.4 72 20 109/80 97 I/O 08/13/16 08/13/16 08/13/16 08/14/16 08/14/16 08/14/16 07:00 15:00 23:00 07:00 15:00 23:00 Intake Total 480 ml 1000 ml 240 ml 240 ml Balance 480 ml 1000 ml 240 ml 240 ml Intake Oral 480 ml 1000 ml 240 ml 240 ml # Voids 2 4 2 1 # Bowel Movements 0 1 1 0 Objective Remarks GENERAL: Well-developed, well-nourished, in no acute distress. alert and orientated to person, month, year, place HEENT: Head is normocephalic without any lesions or masses noted. Facial features are symmetric. Eyes: Pupils equal round reactive to light. Extraocular muscles are intact. Conjunctivae were clear. NECK: Supple without any masses. Trachea midline no deviation. No JVD CARDIAC: Regular rhythm, regular rate. S1/S2 are heard. No murmurs gallops or rubs. LUNGS: Clear to auscultation bilaterally. No wheeze, rhonchi or rales. No use of accessory muscles on inspiration or expiration. ABDOMEN: Soft, nontender. Nondistended. Bowel sounds heard in all 4 quadrants. No organomegaly or masses. Negative rebound, negative guarding EXTREMITIES: No edema, pulses are equal bilaterally. No cyanosis or clubbing NEUROLOGY: Mood and affect appear appropriate. Cranial nerves II through XII grossly intact. Moving all extremities, speech is clear Procedures 02/14 with right frontal bur hole and left subclavian line placement 02/15 with right occipital craniectomy with SDH evacuation 02/20 tracheostomy and PEG placement 02/25 left frontal temporoparietal decompressive craniotomy 03/06 PICC 03/29 bone flap replacement Urinary Catheter: No Date of Insertion: Apr 10, 2016 Date of Removal: Apr 22, 2016 Vascular Central Line Catheter: No A/P Assessment and Plan S/P traumatic brain injury: Initial head CT with right occipital bone fracture along with intraparenchymal hemorrhage, bilateral subdural hematomas, and subarachnoid hemorrhages. Patient is status post right frontal bur hole, right occipital craniectomy with SDH evacuation, left frontal temporoparietal decompressive craniotomy, and subsequent bone flap replacement. Neurosurgery has signed off. Discharged from PT/speech therapy/occupational therapy as patient has reached maximum benefit Keppra bid for seizure prophylaxis Hypertension: Stable Blood pressure stable, Metoprolol 12.5 mg every 12 hours Protein Calorie malnutrition: Resolved Initially requiring PEG tube, however patient had been eating well and PEG was removed 05/25. Continue current diet DVT prophylaxis: Patient is ambulating well, low risk Discharge Planning Discharge planning per case management, daily patient has been accepted at the [facility], however awaiting financials to be sorted out. 08/14/16 0639 PATIENT ACCEPTED AT THE [facility] BUT DELAY R/T FOLLOW UP FOR FINAL INCOME AVAILABLE. PATIENT RECORDS MISLEADING SNF NEEDING CLARIFICATION DAVID ORTIZ LPN/Kaushik Figueroa Aug 14, 2016 07:59
[2016-08-14 08:00] VITALS: BP 105/76; PULSE 61; RESP 16; TEMP 98; O2SAT 97
[2016-08-14] MEDS: levETIRAcetam 500 MG TAB PO SCH ×2 (08:57→20:07)
[2016-08-14] MEDS: METOPROLOL TARTRATE 25 MG TAB PO SCH ×2 (08:57→21:05)
[2016-08-14] MEDS: SELENIUM SULFIDE 1% SHAMPOO 207 ML BOTTLE TOPICAL SCH (09:00)
[2016-08-14 20:00] VITALS: BP 122/83; PULSE 69; RESP 18; TEMP 96.5; O2SAT 96
[2016-08-15 08:03] VITALS: BP 110/73; PULSE 70; RESP 20; TEMP 96.2; O2SAT 96
--- NOTE | 2016-08-15 08:31 | HHI.PR ---
Subjective Remarks Patient seen and examined today. Patient denies any new complaints. No change in clinical status. 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 alert and orientated to person, month, year, place HEENT: Head is normocephalic without any lesions or masses noted. Facial features are symmetric. Eyes: Pupils equal round reactive to light. Extraocular muscles are intact. Conjunctivae were clear. NECK: Supple without any masses. Trachea midline no deviation. No JVD CARDIAC: Regular rhythm, regular rate. S1/S2 are heard. No murmurs gallops or rubs. LUNGS: Clear to auscultation bilaterally. No wheeze, rhonchi or rales. No use of accessory muscles on inspiration or expiration. ABDOMEN: Soft, nontender. Nondistended. Bowel sounds heard in all 4 quadrants. No organomegaly or masses. Negative rebound, negative guarding EXTREMITIES: No edema, pulses are equal bilaterally. No cyanosis or clubbing NEUROLOGY: Mood and affect appear appropriate. Cranial nerves II through XII grossly intact. Moving all extremities, speech is clear Procedures 02/14 with right frontal bur hole and left subclavian line placement 02/15 with right occipital craniectomy with SDH evacuation 02/20 tracheostomy and PEG placement 02/25 left frontal temporoparietal decompressive craniotomy 03/06 PICC 03/29 bone flap replacement Urinary Catheter: No Date of Insertion: Apr 10, 2016 Date of Removal: Apr 22, 2016 Vascular Central Line Catheter: No A/P Assessment and Plan S/P traumatic brain injury: Initial head CT with right occipital bone fracture along with intraparenchymal hemorrhage, bilateral subdural hematomas, and subarachnoid hemorrhages. Patient is status post right frontal bur hole, right occipital craniectomy with SDH evacuation, left frontal temporoparietal decompressive craniotomy, and subsequent bone flap replacement. Neurosurgery has signed off. Discharged from PT/speech therapy/occupational therapy as patient has reached maximum benefit Keppra bid for seizure prophylaxis Hypertension: Stable Blood pressure stable, Metoprolol 12.5 mg every 12 hours Protein Calorie malnutrition: Resolved Initially requiring PEG tube, however patient had been eating well and PEG was removed 05/25. Continue current diet DVT prophylaxis: Patient is ambulating well, low risk Discharge Planning Discharge planning per case management, daily patient has been accepted at the [facility], however awaiting financials to be sorted out. 08/14/16 0639 PATIENT ACCEPTED AT THE [facility] BUT DELAY R/T FOLLOW UP FOR FINAL INCOME AVAILABLE. PATIENT RECORDS MISLEADING SNF NEEDING CLARIFICATION DAVID ORTIZ LPN/Kaushik Figueroa Aug 15, 2016 08:31
[2016-08-15] MEDS: SELENIUM SULFIDE 1% SHAMPOO 207 ML BOTTLE TOPICAL SCH (09:00)
[2016-08-15] MEDS: METOPROLOL TARTRATE 25 MG TAB PO SCH ×2 (09:00→22:20)
[2016-08-15] MEDS: levETIRAcetam 500 MG TAB PO SCH ×2 (09:33→22:20)
[2016-08-15 20:00] VITALS: BP 125/76; PULSE 80; RESP 20; TEMP 96.3; O2SAT 98
[2016-08-16 08:00] VITALS: BP 116/72; PULSE 78; RESP 18; TEMP 98.2; O2SAT 97
[2016-08-16] MEDS: SELENIUM SULFIDE 1% SHAMPOO 207 ML BOTTLE TOPICAL SCH (09:00)
[2016-08-16] MEDS: METOPROLOL TARTRATE 25 MG TAB PO SCH ×2 (09:44→20:38)
[2016-08-16] MEDS: levETIRAcetam 500 MG TAB PO SCH ×2 (09:44→20:35)
--- NOTE | 2016-08-16 11:13 | HHI.PR ---
Subjective Remarks Patient seen and examined today. Patient denies any new complaints. Awaiting case management for discharge planning Objective Vitals Vital Signs Date Time Temp Pulse Resp B/P Pulse Ox O2 Delivery O2 Flow Rate FiO2 08/16/16 08:00 98.2 78 18 116/72 97 08/15/16 20:00 96.3 80 20 125/76 98 I/O 08/15/16 08/15/16 08/15/16 08/16/16 08/16/16 08/16/16 06:59 14:59 22:59 06:59 14:59 22:59 Intake Total 480 ml 800 ml 0 ml Balance 480 ml 800 ml 0 ml Intake Oral 480 ml 800 ml IV Total 0 ml 0 ml # Voids 1 4 Objective Remarks GENERAL: Well-developed, well-nourished, in no acute distress. alert and orientated to person, month, year, place HEENT: Head is normocephalic without any lesions or masses noted. Facial features are symmetric. Eyes: Pupils equal round reactive to light. Extraocular muscles are intact. Conjunctivae were clear. NECK: Supple without any masses. Trachea midline no deviation. No JVD CARDIAC: Regular rhythm, regular rate. S1/S2 are heard. No murmurs gallops or rubs. LUNGS: Clear to auscultation bilaterally. No wheeze, rhonchi or rales. No use of accessory muscles on inspiration or expiration. ABDOMEN: Soft, nontender. Nondistended. Bowel sounds heard in all 4 quadrants. No organomegaly or masses. Negative rebound, negative guarding EXTREMITIES: No edema, pulses are equal bilaterally. No cyanosis or clubbing NEUROLOGY: Mood and affect appear appropriate. Cranial nerves II through XII grossly intact. Moving all extremities, speech is clear Procedures 02/14 with right frontal bur hole and left subclavian line placement 02/15 with right occipital craniectomy with SDH evacuation 02/20 tracheostomy and PEG placement 02/25 left frontal temporoparietal decompressive craniotomy 03/06 PICC 03/29 bone flap replacement Urinary Catheter: No Date of Insertion: Apr 10, 2016 Date of Removal: Apr 22, 2016 Vascular Central Line Catheter: No A/P Assessment and Plan S/P traumatic brain injury: Initial head CT with right occipital bone fracture along with intraparenchymal hemorrhage, bilateral subdural hematomas, and subarachnoid hemorrhages. Patient is status post right frontal bur hole, right occipital craniectomy with SDH evacuation, left frontal temporoparietal decompressive craniotomy, and subsequent bone flap replacement. Neurosurgery has signed off. Discharged from PT/speech therapy/occupational therapy as patient has reached maximum benefit Keppra bid for seizure prophylaxis Hypertension: Stable Blood pressure stable, Metoprolol 12.5 mg every 12 hours Protein Calorie malnutrition: Resolved Initially requiring PEG tube, however patient had been eating well and PEG was removed 05/25. Continue current diet DVT prophylaxis: Patient is ambulating well, low risk Discharge Planning Discharge planning per case management, daily patient has been accepted at the [facility], however awaiting financials to be sorted out. 08/14/16 0639 PATIENT ACCEPTED AT THE [place] BUT DELAY R/T FOLLOW UP FOR FINAL INCOME AVAILABLE. PATIENT RECORDS MISLEADING SNF NEEDING CLARIFICATION DAVID ORTIZ LPN/Kaushik Figueroa Aug 16, 2016 11:13
[2016-08-16 20:00] VITALS: BP 119/78; PULSE 69; RESP 18; TEMP 97.1; O2SAT 91
[2016-08-17 08:00] VITALS: BP 133/93; PULSE 84; RESP 20; TEMP 97.7; O2SAT 97
[2016-08-17] MEDS: SELENIUM SULFIDE 1% SHAMPOO 207 ML BOTTLE TOPICAL SCH (09:00)
[2016-08-17] MEDS: METOPROLOL TARTRATE 25 MG TAB PO SCH ×2 (09:07→20:05)
[2016-08-17] MEDS: levETIRAcetam 500 MG TAB PO SCH ×2 (09:07→20:04)
--- NOTE | 2016-08-17 09:40 | HHI.PR ---
Subjective Remarks Status post traumatic brain injury. Patient tells me today that he has double vision when he "looks out" in the mornings and later in the day but denies it being constant. States this has been ongoing for 2 months. Difficult to interpret what he is describing. He also states "When I went to the doctor yesterday...". The patient denies abnormal vision currently. Denies any headache, dizziness, numbness, tingling, new weakness. Has chronic right upper extremity weakness per patient. Objective Vitals Vital Signs Date Time Temp Pulse Resp B/P Pulse Ox O2 Delivery O2 Flow Rate FiO2 08/17/16 08:00 97.7 84 20 133/93 97 08/16/16 20:00 97.1 69 18 119/78 91 I/O 08/16/16 08/16/16 08/16/16 08/17/16 08/17/16 08/17/16 07:00 15:00 23:00 07:00 15:00 23:00 Intake Total 0 ml 1930 ml 800 ml Balance 0 ml 1930 ml 800 ml Intake Oral 1930 ml 800 ml IV Total 0 ml # Voids 6 4 # Bowel Movements 0 0 Objective Remarks GENERAL: Well-nourished, well-developed patient in no apparent distress eating breakfast when I enter the room. SKIN: Warm and dry. EYES: Pupils equal, round, bilaterally reactive to light. Bilateral visual gaxiola intact. CARDIOVASCULAR: Regular rate and rhythm. RESPIRATORY: No accessory muscle use. Clear to auscultation. Breath sounds equal bilaterally. GASTROINTESTINAL: Abdomen soft, non-tender, nondistended. NEUROLOGICAL: Awake and alert. Cranial nerves II through XII intact. 4/5 biceps strength right upper extremity and 5/5 triceps strength. 5/5 strength in left upper extremity and bilateral lower extremities. Motor grossly within normal limits. Normal speech. PSYCHIATRIC: Appropriate mood and affect. Procedures 02/14 with right frontal bur hole and left subclavian line placement 02/15 with right occipital craniectomy with SDH evacuation 02/20 tracheostomy and PEG placement 02/25 left frontal temporoparietal decompressive craniotomy 03/06 PICC 03/29 bone flap replacement Urinary Catheter: No Date of Insertion: Apr 10, 2016 Date of Removal: Apr 22, 2016 Vascular Central Line Catheter: No A/P Problem List: (1) HTN (hypertension) ICD Code: I10 Status: Chronic (2) Traumatic brain injury ICD Code: S06.9X9A Status: Acute (3) Insomnia ICD Code: G47.00 Status: Acute (4) Urinary retention ICD Code: R33.9 Status: Resolved (5) Protein calorie malnutrition ICD Code: E46 Status: Acute (6) Cervical muscle strain ICD Code: S16.1XXA Status: Acute Assessment and Plan S/P traumatic brain injury: Initial head CT with right occipital bone fracture along with intraparenchymal hemorrhage, bilateral subdural hematomas, and subarachnoid hemorrhages. Patient is status post right frontal bur hole, right occipital craniectomy with SDH evacuation, left frontal temporoparietal decompressive craniotomy, and subsequent bone flap replacement. Neurosurgery has signed off. Discharged from PT/speech therapy/occupational therapy as patient has reached maximum benefit Keppra bid for seizure prophylaxis Hypertension: Stable Blood pressure stable, Metoprolol 12.5 mg every 12 hours Protein Calorie malnutrition: Resolved Initially requiring PEG tube, however patient had been eating well and PEG was removed 05/25. Continue current diet Blurred vision: Patient reports this is ongoing for 2 months when he "looks out ". I'm still not quite sure exactly what he is describing. He is not complaining of visual change currently, and vision is normal on exam. -Monitor and perform further workup if necessary. C-spine strain: Flexeril was discontinued due to little improvement. Apply heat. Ambulate to avoid stiffness in bed. DVT prophylaxis: Patient is ambulating well, low risk Discharge Planning Patient apparently gets early prison money each month and healthcare surrogate is trying to find card. Once this is sorted, patient will be able to be placed. [facility] has accepted patient. Problem Qualifiers (1) HTN (hypertension): Qualified Code: I10 - Essential hypertension Christina Hoff Aug 17, 2016 09:40
[2016-08-17 20:00] VITALS: BP 118/80; PULSE 71; RESP 18; TEMP 98; O2SAT 98
[2016-08-18 08:00] VITALS: BP 120/74; PULSE 70; RESP 18; TEMP 97.6; O2SAT 97
[2016-08-18] MEDS: SELENIUM SULFIDE 1% SHAMPOO 207 ML BOTTLE TOPICAL SCH (09:00)
[2016-08-18] MEDS: levETIRAcetam 500 MG TAB PO SCH ×2 (09:04→21:56)
[2016-08-18] MEDS: METOPROLOL TARTRATE 25 MG TAB PO SCH ×2 (09:04→21:56)
--- NOTE | 2016-08-18 09:48 | HHI.PR ---
Subjective Remarks No acute complaints. No change in clinical status. Objective Vitals Vital Signs Date Time Temp Pulse Resp B/P Pulse Ox O2 Delivery O2 Flow Rate FiO2 08/18/16 08:00 97.6 70 18 120/74 97 08/17/16 20:00 98.0 71 18 118/80 98 I/O 08/17/16 08/17/16 08/17/16 08/18/16 08/18/16 08/18/16 07:00 15:00 23:00 07:00 15:00 23:00 Intake Total 800 ml 400 ml 450 ml 420 ml Balance 800 ml 400 ml 450 ml 420 ml Intake Oral 800 ml 400 ml 450 ml 420 ml # Voids 4 2 2 # Bowel Movements 0 0 0 Objective Remarks GENERAL: Well-nourished, well-developed patient in no apparent distress watching television. SKIN: Warm and dry. CARDIOVASCULAR: Regular rate and rhythm. RESPIRATORY: No accessory muscle use. Clear to auscultation. Breath sounds equal bilaterally. GASTROINTESTINAL: Abdomen soft, non-tender, nondistended. NEUROLOGICAL: Awake and alert. Motor grossly within normal limits. Normal speech. PSYCHIATRIC: Appropriate mood and affect. Procedures 02/14 with right frontal bur hole and left subclavian line placement 02/15 with right occipital craniectomy with SDH evacuation 02/20 tracheostomy and PEG placement 02/25 left frontal temporoparietal decompressive craniotomy 03/06 PICC 03/29 bone flap replacement Urinary Catheter: No Date of Insertion: Apr 10, 2016 Date of Removal: Apr 22, 2016 Vascular Central Line Catheter: No A/P Problem List: (1) HTN (hypertension) ICD Code: I10 Status: Chronic (2) Traumatic brain injury ICD Code: S06.9X9A Status: Acute (3) Insomnia ICD Code: G47.00 Status: Acute (4) Urinary retention ICD Code: R33.9 Status: Resolved (5) Protein calorie malnutrition ICD Code: E46 Status: Acute (6) Cervical muscle strain ICD Code: S16.1XXA Status: Acute Assessment and Plan S/P traumatic brain injury: Initial head CT with right occipital bone fracture along with intraparenchymal hemorrhage, bilateral subdural hematomas, and subarachnoid hemorrhages. Patient is status post right frontal bur hole, right occipital craniectomy with SDH evacuation, left frontal temporoparietal decompressive craniotomy, and subsequent bone flap replacement. Neurosurgery has signed off. Discharged from PT/speech therapy/occupational therapy as patient has reached maximum benefit Keppra bid for seizure prophylaxis Hypertension: Stable Blood pressure stable, Metoprolol 12.5 mg every 12 hours Protein Calorie malnutrition: Resolved Initially requiring PEG tube, however patient had been eating well and PEG was removed 05/25. Continue current diet Blurred vision: Patient reported that this was ongoing for 2 months when he "looks out". I'm was not quite sure exactly what he was describing. He does not complain of this today. -Monitor C-spine strain: Flexeril was discontinued due to little improvement. Apply heat. Ambulate to avoid stiffness in bed. DVT prophylaxis: Patient is ambulating well, low risk Discharge Planning Patient apparently gets early care home money each month and healthcare surrogate is trying to find card. Once this is sorted, patient will be able to be placed. [facility] has accepted patient. Problem Qualifiers (1) HTN (hypertension): Qualified Code: I10 - Essential hypertension Christina Hoff Aug 18, 2016 09:48
[2016-08-18 20:00] VITALS: BP 134/84; PULSE 71; RESP 16; TEMP 96.7; O2SAT 98
[2016-08-19 08:00] VITALS: BP 138/91; PULSE 71; RESP 18; TEMP 96.4; O2SAT 95
[2016-08-19] MEDS: SELENIUM SULFIDE 1% SHAMPOO 207 ML BOTTLE TOPICAL SCH (09:00)
[2016-08-19] MEDS: METOPROLOL TARTRATE 25 MG TAB PO SCH ×2 (09:27→20:27)
[2016-08-19] MEDS: levETIRAcetam 500 MG TAB PO SCH ×2 (09:27→20:27)
--- NOTE | 2016-08-19 09:37 | HHI.PR ---
Subjective Remarks No acute complaints. No change in clinical status. The nurse informed me of a bump on the patient's right hand. Objective Vitals Vital Signs Date Time Temp Pulse Resp B/P Pulse Ox O2 Delivery O2 Flow Rate FiO2 08/19/16 08:00 96.4 71 18 138/91 95 08/18/16 20:00 96.7 71 16 134/84 98 I/O 08/18/16 08/18/16 08/18/16 08/19/16 08/19/16 08/19/16 07:00 15:00 23:00 07:00 15:00 23:00 Intake Total 420 ml 360 ml 650 ml 250 ml Balance 420 ml 360 ml 650 ml 250 ml Intake Oral 420 ml 360 ml 650 ml 250 ml # Voids 2 2 3 2 # Bowel Movements 0 0 Objective Remarks GENERAL: Well-nourished, well-developed patient in no apparent distress watching television. SKIN: Warm and dry. CARDIOVASCULAR: Regular rate and rhythm. RESPIRATORY: No accessory muscle use. Clear to auscultation. Breath sounds equal bilaterally. GASTROINTESTINAL: Abdomen soft, non-tender, nondistended. MUSCULOSKELETAL: Right fifth finger remains in a flexed position, appears as a trigger finger. There is an area of soft tissue swelling proximal to the fourth finger adjacent to the fifth metatarsal head over the right palm. No pain or erythema in this region. NEUROLOGICAL: Awake and alert. Motor grossly within normal limits. Normal speech. PSYCHIATRIC: Appropriate mood and affect. Procedures 02/14 with right frontal bur hole and left subclavian line placement 02/15 with right occipital craniectomy with SDH evacuation 02/20 tracheostomy and PEG placement 02/25 left frontal temporoparietal decompressive craniotomy 03/06 PICC 03/29 bone flap replacement Urinary Catheter: No Date of Insertion: Apr 10, 2016 Date of Removal: Apr 22, 2016 Vascular Central Line Catheter: No A/P Problem List: (1) HTN (hypertension) ICD Code: I10 Status: Chronic (2) Traumatic brain injury ICD Code: S06.9X9A Status: Acute (3) Insomnia ICD Code: G47.00 Status: Acute (4) Urinary retention ICD Code: R33.9 Status: Resolved (5) Protein calorie malnutrition ICD Code: E46 Status: Acute (6) Cervical muscle strain ICD Code: S16.1XXA Status: Acute Assessment and Plan S/P traumatic brain injury: Initial head CT with right occipital bone fracture along with intraparenchymal hemorrhage, bilateral subdural hematomas, and subarachnoid hemorrhages. Patient is status post right frontal bur hole, right occipital craniectomy with SDH evacuation, left frontal temporoparietal decompressive craniotomy, and subsequent bone flap replacement. Neurosurgery has signed off. Discharged from PT/speech therapy/occupational therapy as patient has reached maximum benefit Keppra bid for seizure prophylaxis Hypertension: Stable Blood pressure stable, Metoprolol 12.5 mg every 12 hours Protein Calorie malnutrition: Resolved Initially requiring PEG tube, however patient had been eating well and PEG was removed 05/25. Continue current diet Blurred vision: Patient reported that this was ongoing for 2 months when he "looks out". I'm not quite sure exactly what he was describing. No abnormalities noted on exam. -Monitor C-spine strain: Flexeril was discontinued due to little improvement. Apply heat. Ambulate to avoid stiffness in bed. Soft tissue abnormality of the R palm appears to be related to chronic trigger finger. Nothing acute to do. DVT prophylaxis: Patient is ambulating well, low risk Discharge Planning Patient apparently gets early [facility] money each month and healthcare surrogate is trying to find card. Once this is sorted, patient will be able to be placed. [facility] has accepted patient. Problem Qualifiers (1) HTN (hypertension): Qualified Code: I10 - Essential hypertension Christina Hoff Aug 19, 2016 09:37
[2016-08-19 20:00] VITALS: BP 130/84; PULSE 73; RESP 18; TEMP 98.1; O2SAT 98
[2016-08-20] MEDS: SELENIUM SULFIDE 1% SHAMPOO 207 ML BOTTLE TOPICAL SCH (09:00)
[2016-08-20 09:44] VITALS: BP 120/78; PULSE 75; RESP 20; TEMP 96.9; O2SAT 96
[2016-08-20] MEDS: METOPROLOL TARTRATE 25 MG TAB PO SCH ×2 (09:52→20:19)
[2016-08-20] MEDS: levETIRAcetam 500 MG TAB PO SCH ×2 (09:53→20:19)
--- NOTE | 2016-08-20 10:04 | HHI.PR ---
Subjective Remarks No acute complaints. No change in clinical status. Objective Vitals Vital Signs Date Time Temp Pulse Resp B/P Pulse Ox O2 Delivery O2 Flow Rate FiO2 08/20/16 09:44 96.9 75 20 120/78 96 08/19/16 20:00 98.1 73 18 130/84 98 I/O 08/19/16 08/19/16 08/19/16 08/20/16 08/20/16 08/20/16 06:59 14:59 22:59 06:59 14:59 22:59 Intake Total 250 ml 480 ml 640 ml 200 ml Balance 250 ml 480 ml 640 ml 200 ml Intake Oral 250 ml 480 ml 640 ml 200 ml # Voids 2 3 2 2 # Bowel Movements 0 Objective Remarks GENERAL: Well-nourished, well-developed patient in no apparent distress watching television. SKIN: Warm and dry. CARDIOVASCULAR: Regular rate and rhythm. RESPIRATORY: No accessory muscle use. Clear to auscultation. Breath sounds equal bilaterally. GASTROINTESTINAL: Abdomen soft, non-tender, nondistended. NEUROLOGICAL: Awake and alert. Motor grossly within normal limits. Normal speech. PSYCHIATRIC: Appropriate mood and affect. Procedures 02/14 with right frontal bur hole and left subclavian line placement 02/15 with right occipital craniectomy with SDH evacuation 02/20 tracheostomy and PEG placement 02/25 left frontal temporoparietal decompressive craniotomy 03/06 PICC 03/29 bone flap replacement Urinary Catheter: No Date of Insertion: Apr 10, 2016 Date of Removal: Apr 22, 2016 Vascular Central Line Catheter: No A/P Problem List: (1) HTN (hypertension) ICD Code: I10 Status: Chronic (2) Traumatic brain injury ICD Code: S06.9X9A Status: Acute (3) Insomnia ICD Code: G47.00 Status: Acute (4) Urinary retention ICD Code: R33.9 Status: Resolved (5) Protein calorie malnutrition ICD Code: E46 Status: Acute (6) Cervical muscle strain ICD Code: S16.1XXA Status: Acute Assessment and Plan S/P traumatic brain injury: Initial head CT with right occipital bone fracture along with intraparenchymal hemorrhage, bilateral subdural hematomas, and subarachnoid hemorrhages. Patient is status post right frontal bur hole, right occipital craniectomy with SDH evacuation, left frontal temporoparietal decompressive craniotomy, and subsequent bone flap replacement. Neurosurgery has signed off. Discharged from PT/speech therapy/occupational therapy as patient has reached maximum benefit Keppra bid for seizure prophylaxis Hypertension: Stable Blood pressure stable, Metoprolol 12.5 mg every 12 hours Protein Calorie malnutrition: Resolved Initially requiring PEG tube, however patient had been eating well and PEG was removed 05/25. Continue current diet Blurred vision: Patient reported that this was ongoing for 2 months when he "looks out". I'm not quite sure exactly what he was describing. No abnormalities noted on exam. -Monitor C-spine strain: Flexeril was discontinued due to little improvement. Apply heat. Ambulate to avoid stiffness in bed. Soft tissue abnormality of the R palm appears to be related to chronic trigger finger. Nothing acute to do. DVT prophylaxis: Patient is ambulating well, low risk Discharge Planning Patient apparently gets early custodial money each month and healthcare surrogate is trying to find card. Once this is sorted, patient will be able to be placed. [facility] has accepted patient. Problem Qualifiers (1) HTN (hypertension): Qualified Code: I10 - Essential hypertension Christina Hoff Aug 20, 2016 10:04
[2016-08-20 20:00] VITALS: BP 122/85; PULSE 64; RESP 16; TEMP 97.2; O2SAT 98
[2016-08-21] MEDS: levETIRAcetam 500 MG TAB PO SCH ×2 (08:48→20:48)
[2016-08-21] MEDS: SELENIUM SULFIDE 1% SHAMPOO 207 ML BOTTLE TOPICAL SCH (08:48)
[2016-08-21] MEDS: METOPROLOL TARTRATE 25 MG TAB PO SCH ×2 (08:48→20:48)
[2016-08-21 09:12] VITALS: BP 125/74; PULSE 76; RESP 15; TEMP 96.9; O2SAT 96
--- NOTE | 2016-08-21 11:03 | HHI.PR ---
Subjective Remarks Follow-up for TBI. Patient again complains of not being able to hear out of his right ear. Objective Vitals Vital Signs Date Time Temp Pulse Resp B/P Pulse Ox O2 Delivery O2 Flow Rate FiO2 08/21/16 09:12 96.9 76 15 125/74 96 08/20/16 20:00 97.2 64 16 122/85 98 I/O 08/20/16 08/20/16 08/20/16 08/21/16 08/21/16 08/21/16 07:00 15:00 23:00 07:00 15:00 23:00 Intake Total 200 ml 900 ml 330 ml 220 ml Balance 200 ml 900 ml 330 ml 220 ml Intake Oral 200 ml 900 ml 330 ml 220 ml # Voids 2 2 1 2 Objective Remarks GENERAL: Well-nourished, well-developed patient in no apparent distress watching television. SKIN: Warm and dry. ENT: Otoscopic evaluation reveals soft cerumen in bilateral ears occluding the external auditory canals. No visualization of the TMs bilaterally. CARDIOVASCULAR: Regular rate and rhythm. RESPIRATORY: No accessory muscle use. Clear to auscultation. Breath sounds equal bilaterally. GASTROINTESTINAL: Abdomen soft, non-tender, nondistended. NEUROLOGICAL: Awake and alert. Motor grossly within normal limits. Normal speech. PSYCHIATRIC: Appropriate mood and affect. Procedures 02/14 with right frontal bur hole and left subclavian line placement 02/15 with right occipital craniectomy with SDH evacuation 02/20 tracheostomy and PEG placement 02/25 left frontal temporoparietal decompressive craniotomy 03/06 PICC 03/29 bone flap replacement Urinary Catheter: No Date of Insertion: Apr 10, 2016 Date of Removal: Apr 22, 2016 Vascular Central Line Catheter: No A/P Problem List: (1) HTN (hypertension) ICD Code: I10 Status: Chronic (2) Traumatic brain injury ICD Code: S06.9X9A Status: Acute (3) Insomnia ICD Code: G47.00 Status: Acute (4) Urinary retention ICD Code: R33.9 Status: Resolved (5) Protein calorie malnutrition ICD Code: E46 Status: Acute (6) Cervical muscle strain ICD Code: S16.1XXA Status: Acute (7) Bilateral impacted cerumen ICD Code: H61.23 Status: Acute Assessment and Plan S/P traumatic brain injury: Initial head CT with right occipital bone fracture along with intraparenchymal hemorrhage, bilateral subdural hematomas, and subarachnoid hemorrhages. Patient is status post right frontal bur hole, right occipital craniectomy with SDH evacuation, left frontal temporoparietal decompressive craniotomy, and subsequent bone flap replacement. Neurosurgery has signed off. Discharged from PT/speech therapy/occupational therapy as patient has reached maximum benefit Keppra bid for seizure prophylaxis Hypertension: Stable Blood pressure stable, Metoprolol 12.5 mg every 12 hours Protein Calorie malnutrition: Resolved Initially requiring PEG tube, however patient had been eating well and PEG was removed 05/25. Continue current diet Blurred vision: Patient reported that this was ongoing for 2 months when he "looks out". I'm not quite sure exactly what he was describing. No abnormalities noted on exam. -Monitor C-spine strain: Flexeril was discontinued due to little improvement. Apply heat. Ambulate to avoid stiffness in bed. Cerumen impaction: Cerumen in B/L EACs occluding canals. Cerumen appears soft enough for irrigation to work. -RN order to irrigate ears -If cerumen fails to be removed, will need to order Debrox drops. DVT prophylaxis: Patient is ambulating well, low risk Discharge Planning Patient has been accepted to [place] when financial situation is resolved regarding early [facility] benefits. Healthcare surrogate is assisting with this. Problem Qualifiers (1) HTN (hypertension): Qualified Code: I10 - Essential hypertension Christina Hoff Aug 21, 2016 11:03
[2016-08-21 20:00] VITALS: BP 141/82; PULSE 72; RESP 20; TEMP 96; O2SAT 96
[2016-08-22 08:00] VITALS: BP 140/94; PULSE 67; RESP 18; TEMP 97.2; O2SAT 98
[2016-08-22] MEDS: SELENIUM SULFIDE 1% SHAMPOO 207 ML BOTTLE TOPICAL SCH (09:00)
[2016-08-22] MEDS: levETIRAcetam 500 MG TAB PO SCH ×2 (09:04→20:14)
[2016-08-22] MEDS: METOPROLOL TARTRATE 25 MG TAB PO SCH ×2 (09:04→20:14)
--- NOTE | 2016-08-22 11:05 | HHI.PR ---
Subjective Remarks Patient is status post TBI. Follow-up for bilateral cerumen impaction. Patient 's ears were irrigated by RN yesterday. Patient states he had some clearance in the right ear but then it felt clotted again last night. Objective Vitals Vital Signs Date Time Temp Pulse Resp B/P Pulse Ox O2 Delivery O2 Flow Rate FiO2 08/22/16 08:00 97.2 67 18 140/94 98 08/21/16 20:00 96.0 72 20 141/82 96 I/O 08/21/16 08/21/16 08/21/16 08/22/16 08/22/16 08/22/16 07:00 15:00 23:00 07:00 15:00 23:00 Intake Total 220 ml 220 ml 240 ml 240 ml Balance 220 ml 220 ml 240 ml 240 ml Intake Oral 220 ml 220 ml 240 ml 240 ml # Voids 2 5 3 2 # Bowel Movements 1 1 Objective Remarks GENERAL: Well-nourished, well-developed patient in no apparent distress. SKIN: Warm and dry. ENT: Otoscopic evaluation reveals cerumen in right ear occluding the external auditory canal. Left EAC with minimal cerumen at 12 o'clock position but TM visualized intact without erythema. CARDIOVASCULAR: Regular rate and rhythm. RESPIRATORY: No accessory muscle use. Clear to auscultation. Breath sounds equal bilaterally. GASTROINTESTINAL: Normoactive bowel sounds. Abdomen soft, non-tender, nondistended. NEUROLOGICAL: Awake and alert. Motor grossly within normal limits. Normal speech. PSYCHIATRIC: Appropriate mood and affect. Procedures 02/14 with right frontal bur hole and left subclavian line placement 02/15 with right occipital craniectomy with SDH evacuation 02/20 tracheostomy and PEG placement 02/25 left frontal temporoparietal decompressive craniotomy 03/06 PICC 03/29 bone flap replacement Urinary Catheter: No Date of Insertion: Apr 10, 2016 Date of Removal: Apr 22, 2016 Vascular Central Line Catheter: No A/P Problem List: (1) HTN (hypertension) ICD Code: I10 Status: Chronic (2) Traumatic brain injury ICD Code: S06.9X9A Status: Acute (3) Insomnia ICD Code: G47.00 Status: Acute (4) Urinary retention ICD Code: R33.9 Status: Resolved (5) Protein calorie malnutrition ICD Code: E46 Status: Acute (6) Cervical muscle strain ICD Code: S16.1XXA Status: Acute (7) Bilateral impacted cerumen ICD Code: H61.23 Status: Acute Assessment and Plan S/P traumatic brain injury: Initial head CT with right occipital bone fracture along with intraparenchymal hemorrhage, bilateral subdural hematomas, and subarachnoid hemorrhages. Patient is status post right frontal bur hole, right occipital craniectomy with SDH evacuation, left frontal temporoparietal decompressive craniotomy, and subsequent bone flap replacement. Neurosurgery has signed off. Discharged from PT/speech therapy/occupational therapy as patient has reached maximum benefit Keppra bid for seizure prophylaxis Hypertension: BP 140/94 this morning. Metoprolol 12.5 mg every 12 hours Will monitor and make medication adjustments as needed Protein Calorie malnutrition: Resolved Initially requiring PEG tube, however patient had been eating well and PEG was removed 05/25. Continue current diet Blurred vision: Patient reported that this was ongoing for 2 months when he "looks out". I'm not quite sure exactly what he was describing. No abnormalities noted on exam. -Monitor C-spine strain: Flexeril was discontinued due to little improvement. Apply heat. Ambulate to avoid stiffness in bed. Cerumen impaction: Cerumen in L ear improved s/p irrigation. Cerumen still occluding R ear. -Will order Debrox drops. DVT prophylaxis: Patient is ambulating well, low risk Discharge Planning Patient has been accepted to [place] when financial situation is resolved regarding early custodial benefits. Healthcare surrogate is assisting with this. Problem Qualifiers (1) HTN (hypertension): Qualified Code: I10 - Essential hypertension Christina Hoff Aug 22, 2016 11:04
[2016-08-22 20:00] VITALS: BP 123/78; PULSE 64; RESP 18; TEMP 97.5; O2SAT 98
[2016-08-22] MEDS: CARBAMIDE PEROXIDE 6.5% OTIC SOLN 15 ML BTL RIGHT EAR SCH (20:14)
[2016-08-23] MEDS: METOPROLOL TARTRATE 25 MG TAB PO SCH ×2 (08:14→21:11)
[2016-08-23] MEDS: levETIRAcetam 500 MG TAB PO SCH ×2 (08:14→21:11)
[2016-08-23] MEDS: CARBAMIDE PEROXIDE 6.5% OTIC SOLN 15 ML BTL RIGHT EAR SCH ×2 (08:14→22:38)
[2016-08-23] MEDS: SELENIUM SULFIDE 1% SHAMPOO 207 ML BOTTLE TOPICAL SCH (08:14)
[2016-08-23 09:38] VITALS: BP 130/80; PULSE 78; RESP 18; TEMP 98; O2SAT 96
--- NOTE | 2016-08-23 10:19 | HHI.PR ---
Subjective Remarks Follow-up for cerumen impaction status post irrigation. Patient still feels a clogged sensation in his right ear but it is improved. Objective Vitals Vital Signs Date Time Temp Pulse Resp B/P Pulse Ox O2 Delivery O2 Flow Rate FiO2 08/23/16 09:38 98.0 78 18 130/80 96 08/22/16 20:00 97.5 64 18 123/78 98 I/O 08/22/16 08/22/16 08/22/16 08/23/16 08/23/16 08/23/16 07:00 15:00 23:00 07:00 15:00 23:00 Intake Total 240 ml 240 ml 0 ml 620 ml Balance 240 ml 240 ml 0 ml 620 ml Intake Oral 240 ml 240 ml 620 ml IV Total 0 ml 0 ml 0 ml # Voids 2 2 2 # Bowel Movements 1 0 0 Objective Remarks GENERAL: Well-nourished, well-developed patient in no apparent distress. SKIN: Warm and dry. CARDIOVASCULAR: Regular rate and rhythm. RESPIRATORY: No accessory muscle use. Clear to auscultation. Breath sounds equal bilaterally. GASTROINTESTINAL: Abdomen soft, non-tender, nondistended. NEUROLOGICAL: Awake and alert. Motor grossly within normal limits. Normal speech. PSYCHIATRIC: Appropriate mood and affect. Procedures 02/14 with right frontal bur hole and left subclavian line placement 02/15 with right occipital craniectomy with SDH evacuation 02/20 tracheostomy and PEG placement 02/25 left frontal temporoparietal decompressive craniotomy 03/06 PICC 03/29 bone flap replacement Urinary Catheter: No Date of Insertion: Apr 10, 2016 Date of Removal: Apr 22, 2016 Vascular Central Line Catheter: No A/P Problem List: (1) Traumatic brain injury ICD Code: S06.9X9A Status: Acute (2) HTN (hypertension) ICD Code: I10 Status: Chronic (3) Insomnia ICD Code: G47.00 Status: Acute (4) Urinary retention ICD Code: R33.9 Status: Resolved (5) Protein calorie malnutrition ICD Code: E46 Status: Acute (6) Cervical muscle strain ICD Code: S16.1XXA Status: Acute (7) Bilateral impacted cerumen ICD Code: H61.23 Status: Acute Assessment and Plan S/P traumatic brain injury: Initial head CT with right occipital bone fracture along with intraparenchymal hemorrhage, bilateral subdural hematomas, and subarachnoid hemorrhages. Patient is status post right frontal bur hole, right occipital craniectomy with SDH evacuation, left frontal temporoparietal decompressive craniotomy, and subsequent bone flap replacement. Neurosurgery has signed off. Discharged from PT/speech therapy/occupational therapy as patient has reached maximum benefit Keppra bid for seizure prophylaxis Hypertension: Metoprolol 12.5 mg every 12 hours Will monitor and make medication adjustments as needed Protein Calorie malnutrition: Resolved Initially requiring PEG tube, however patient had been eating well and PEG was removed 05/25. Continue current diet Blurred vision: Patient reported that this was ongoing for 2 months when he "looks out", intermittent. No abnormalities noted on exam. -Monitor C-spine strain: Flexeril was discontinued due to little improvement. Apply heat. Ambulate to avoid stiffness in bed. Cerumen impaction: Improving. Cerumen in L ear improved s/p irrigation. Cerumen was still occluding R ear. -Continue Debrox drops. DVT prophylaxis: Patient is ambulating well, low risk. Discharge Planning Patient has been accepted to [place] when financial situation is resolved regarding early [facility] benefits. Healthcare surrogate is assisting with this. Problem Qualifiers (1) HTN (hypertension): Qualified Code: I10 - Essential hypertension Christina Hoff Aug 23, 2016 10:19
[2016-08-23 20:00] VITALS: BP 134/96; PULSE 60; RESP 20; TEMP 98.5; O2SAT 98
[2016-08-24] MEDS: METOPROLOL TARTRATE 25 MG TAB PO SCH ×2 (08:07→20:37)
[2016-08-24] MEDS: levETIRAcetam 500 MG TAB PO SCH ×2 (08:07→20:34)
[2016-08-24] MEDS: SELENIUM SULFIDE 1% SHAMPOO 207 ML BOTTLE TOPICAL SCH (08:09)
[2016-08-24] MEDS: CARBAMIDE PEROXIDE 6.5% OTIC SOLN 15 ML BTL RIGHT EAR SCH ×2 (08:09→20:34)
[2016-08-24 09:55] VITALS: BP 118/76; PULSE 60; RESP 20; TEMP 96.2; O2SAT 99
--- NOTE | 2016-08-24 13:52 | HHI.PR ---
Subjective Remarks Patient states his right ear is improving with Debrox drop use. Objective Vitals Vital Signs Date Time Temp Pulse Resp B/P Pulse Ox O2 Delivery O2 Flow Rate FiO2 08/24/16 09:55 96.2 60 20 118/76 99 08/23/16 20:00 98.5 60 20 134/96 98 I/O 08/23/16 08/23/16 08/23/16 08/24/16 08/24/16 08/24/16 06:59 14:59 22:59 06:59 14:59 22:59 Intake Total 620 ml 480 ml 360 ml Balance 620 ml 480 ml 360 ml Intake Oral 620 ml 480 ml 360 ml IV Total 0 ml 0 ml # Voids 2 1 2 # Bowel Movements 0 2 0 Objective Remarks GENERAL: Well-nourished, well-developed patient in no apparent distress. SKIN: Warm and dry. CARDIOVASCULAR: Regular rate and rhythm. RESPIRATORY: No accessory muscle use. Clear to auscultation. Breath sounds equal bilaterally. GASTROINTESTINAL: Normoactive bowel sounds. Abdomen soft, non-tender, nondistended. NEUROLOGICAL: Awake and alert. Motor grossly within normal limits. Normal speech. PSYCHIATRIC: Appropriate mood and affect. Procedures 02/14 with right frontal bur hole and left subclavian line placement 02/15 with right occipital craniectomy with SDH evacuation 02/20 tracheostomy and PEG placement 02/25 left frontal temporoparietal decompressive craniotomy 03/06 PICC 03/29 bone flap replacement Urinary Catheter: No Date of Insertion: Apr 10, 2016 Date of Removal: Apr 22, 2016 Vascular Central Line Catheter: No A/P Problem List: (1) Traumatic brain injury ICD Code: S06.9X9A Status: Acute (2) HTN (hypertension) ICD Code: I10 Status: Chronic (3) Insomnia ICD Code: G47.00 Status: Acute (4) Urinary retention ICD Code: R33.9 Status: Resolved (5) Protein calorie malnutrition ICD Code: E46 Status: Acute (6) Cervical muscle strain ICD Code: S16.1XXA Status: Acute (7) Bilateral impacted cerumen ICD Code: H61.23 Status: Acute Assessment and Plan S/P traumatic brain injury: Initial head CT with right occipital bone fracture along with intraparenchymal hemorrhage, bilateral subdural hematomas, and subarachnoid hemorrhages. Patient is status post right frontal bur hole, right occipital craniectomy with SDH evacuation, left frontal temporoparietal decompressive craniotomy, and subsequent bone flap replacement. Neurosurgery has signed off. Discharged from PT/speech therapy/occupational therapy as patient has reached maximum benefit Keppra bid for seizure prophylaxis Hypertension: Metoprolol 12.5 mg every 12 hours Will monitor and make medication adjustments as needed Protein Calorie malnutrition: Resolved Initially requiring PEG tube, however patient had been eating well and PEG was removed 05/25. Continue current diet Blurred vision: Patient reported that this was ongoing for 2 months when he "looks out", intermittent. No abnormalities noted on exam. -Monitor C-spine strain: Flexeril was discontinued due to little improvement. Apply heat. Ambulate to avoid stiffness in bed. Cerumen impaction: Improving. Cerumen in L ear improved s/p irrigation. Cerumen was still occluding R ear. -Continue Debrox drops. Patient may require further irrigation if cerumen continues to occlude canal. DVT prophylaxis: Patient is ambulating well, low risk. Discharge Planning Patient has been accepted to [place] when financial situation is resolved regarding early senior living benefits. Healthcare surrogate is assisting with this. Problem Qualifiers (1) HTN (hypertension): Qualified Code: I10 - Essential hypertension Christina Hoff Aug 24, 2016 13:52
[2016-08-24 20:00] VITALS: BP 111/87; PULSE 72; RESP 18; TEMP 96.2; O2SAT 98
[2016-08-25 08:00] VITALS: BP 122/69; PULSE 63; RESP 18; TEMP 96.8; O2SAT 97
[2016-08-25] MEDS: CARBAMIDE PEROXIDE 6.5% OTIC SOLN 15 ML BTL RIGHT EAR SCH ×2 (08:32→20:35)
[2016-08-25] MEDS: levETIRAcetam 500 MG TAB PO SCH ×2 (08:32→20:35)
[2016-08-25] MEDS: METOPROLOL TARTRATE 25 MG TAB PO SCH ×2 (08:32→20:35)
[2016-08-25] MEDS: SELENIUM SULFIDE 1% SHAMPOO 207 ML BOTTLE TOPICAL SCH (08:33)
--- NOTE | 2016-08-25 10:44 | HHI.PR ---
Subjective Remarks Patient seen and examined today. Patient denies any new complaints. No change in clinical status. Objective Vitals Vital Signs Date Time Temp Pulse Resp B/P Pulse Ox O2 Delivery O2 Flow Rate FiO2 08/25/16 08:00 96.8 63 18 122/69 97 08/24/16 20:00 96.2 72 18 111/87 98 I/O 08/24/16 08/24/16 08/24/16 08/25/16 08/25/16 08/25/16 07:00 15:00 23:00 07:00 15:00 23:00 Intake Total 360 ml 800 ml Balance 360 ml 800 ml Intake Oral 360 ml 800 ml # Voids 2 4 # Bowel Movements 0 1 Objective Remarks GENERAL: Well-developed, well-nourished, in no acute distress. alert and orientated to person, month, year, place HEENT: Head is normocephalic without any lesions or masses noted. Facial features are symmetric. Eyes: Pupils equal round reactive to light. Extraocular muscles are intact. Conjunctivae were clear. NECK: Supple without any masses. Trachea midline no deviation. No JVD CARDIAC: Regular rhythm, regular rate. S1/S2 are heard. No murmurs gallops or rubs. LUNGS: Clear to auscultation bilaterally. No wheeze, rhonchi or rales. No use of accessory muscles on inspiration or expiration. ABDOMEN: Soft, nontender. Nondistended. Bowel sounds heard in all 4 quadrants. No organomegaly or masses. Negative rebound, negative guarding EXTREMITIES: No edema, pulses are equal bilaterally. No cyanosis or clubbing NEUROLOGY: Mood and affect appear appropriate. Cranial nerves II through XII grossly intact. Moving all extremities, speech is clear Procedures 02/14 with right frontal bur hole and left subclavian line placement 02/15 with right occipital craniectomy with SDH evacuation 02/20 tracheostomy and PEG placement 02/25 left frontal temporoparietal decompressive craniotomy 03/06 PICC 03/29 bone flap replacement Urinary Catheter: No Date of Insertion: Apr 10, 2016 Date of Removal: Apr 22, 2016 Vascular Central Line Catheter: No A/P Assessment and Plan S/P traumatic brain injury: Initial head CT with right occipital bone fracture along with intraparenchymal hemorrhage, bilateral subdural hematomas, and subarachnoid hemorrhages. Patient is status post right frontal bur hole, right occipital craniectomy with SDH evacuation, left frontal temporoparietal decompressive craniotomy, and subsequent bone flap replacement. Neurosurgery has signed off. Discharged from PT/speech therapy/occupational therapy as patient has reached maximum benefit Keppra bid for seizure prophylaxis Hypertension: Stable Blood pressure stable, Metoprolol 12.5 mg every 12 hours Protein Calorie malnutrition: Resolved Initially requiring PEG tube, however patient had been eating well and PEG was removed 05/25. Continue current diet Cerumen impaction Continue Debrox Chronic neck pain Continue Tylenol and heat as needed DVT prophylaxis: Patient is ambulating well, low risk Discharge Planning Discharge planning per case management, daily patient has been accepted at the [facility]', however awaiting financials to be sorted out. 08/20/16 PATIENT HAS BEEN ACCEPTED TO THE [facility] WHEN FINANCIAL BARRIERS ARE RESOLVED RELATED TO PATIENT'S EARLY JAIL BENEFITS. HEALTH CARE SURROGATE IS ASSISTING IN LOCATING NECESSARY DOCUMENTATION. CM FOLLOWING. Kaushik Mcguire Aug 25, 2016 10:44
[2016-08-25 20:00] VITALS: BP 142/92; PULSE 65; RESP 18; TEMP 96.3; O2SAT 99
[2016-08-26] MEDS: METOPROLOL TARTRATE 25 MG TAB PO SCH ×2 (08:49→20:32)
[2016-08-26] MEDS: levETIRAcetam 500 MG TAB PO SCH ×2 (08:49→20:32)
[2016-08-26] MEDS: CARBAMIDE PEROXIDE 6.5% OTIC SOLN 15 ML BTL RIGHT EAR SCH (08:50)
[2016-08-26] MEDS: SELENIUM SULFIDE 1% SHAMPOO 207 ML BOTTLE TOPICAL SCH (08:53)
--- NOTE | 2016-08-26 09:09 | HHI.PR ---
Subjective Remarks Patient seen and examined today. Patient states still having some dull hearing and humming in his right ear with the cerumen impaction. Objective Vitals Vital Signs Date Time Temp Pulse Resp B/P Pulse Ox O2 Delivery O2 Flow Rate FiO2 08/25/16 20:00 96.3 65 18 142/92 99 I/O 08/25/16 08/25/16 08/25/16 08/26/16 08/26/16 08/26/16 07:00 15:00 23:00 07:00 15:00 23:00 Intake Total 360 ml Output Total 420 ml Balance -420 ml 360 ml Intake Oral 360 ml Output Urine Total 420 ml # Voids 2 2 Objective Remarks GENERAL: Well-developed, well-nourished, in no acute distress. alert and orientated to person, month, year, place HEENT: Head is normocephalic without any lesions or masses noted. Facial features are symmetric. Eyes: Pupils equal round reactive to light. Extraocular muscles are intact. Conjunctivae were clear. NECK: Supple without any masses. Trachea midline no deviation. No JVD CARDIAC: Regular rhythm, regular rate. S1/S2 are heard. No murmurs gallops or rubs. LUNGS: Clear to auscultation bilaterally. No wheeze, rhonchi or rales. No use of accessory muscles on inspiration or expiration. ABDOMEN: Soft, nontender. Nondistended. Bowel sounds heard in all 4 quadrants. No organomegaly or masses. Negative rebound, negative guarding EXTREMITIES: No edema, pulses are equal bilaterally. No cyanosis or clubbing NEUROLOGY: Mood and affect appear appropriate. Cranial nerves II through XII grossly intact. Moving all extremities, speech is clear Procedures 02/14 with right frontal bur hole and left subclavian line placement 02/15 with right occipital craniectomy with SDH evacuation 02/20 tracheostomy and PEG placement 02/25 left frontal temporoparietal decompressive craniotomy 03/06 PICC 03/29 bone flap replacement Urinary Catheter: No Date of Insertion: Apr 10, 2016 Date of Removal: Apr 22, 2016 Vascular Central Line Catheter: No A/P Assessment and Plan S/P traumatic brain injury: Initial head CT with right occipital bone fracture along with intraparenchymal hemorrhage, bilateral subdural hematomas, and subarachnoid hemorrhages. Patient is status post right frontal bur hole, right occipital craniectomy with SDH evacuation, left frontal temporoparietal decompressive craniotomy, and subsequent bone flap replacement. Neurosurgery has signed off. Discharged from PT/speech therapy/occupational therapy as patient has reached maximum benefit Keppra bid for seizure prophylaxis Hypertension: Stable Blood pressure stable, Metoprolol 12.5 mg every 12 hours Protein Calorie malnutrition: Resolved Initially requiring PEG tube, however patient had been eating well and PEG was removed 05/25. Continue current diet Cerumen impaction Continue Debrox and irrigation Chronic neck pain Continue Tylenol and heat as needed DVT prophylaxis: Patient is ambulating well, low risk Discharge Planning Discharge planning per case management, daily patient has been accepted at the [facility], however awaiting financials to be sorted out. 08/20/16 PATIENT HAS BEEN [facility] WHEN FINANCIAL BARRIERS ARE RESOLVED RELATED TO PATIENT'S EARLY LONGTERM BENEFITS. HEALTH CARE SURROGATE IS ASSISTING IN LOCATING NECESSARY DOCUMENTATION. CM FOLLOWING. Kaushik Mcguire Aug 26, 2016 09:09
[2016-08-26 09:29] VITALS: BP 127/86; PULSE 61; RESP 15; TEMP 97.6; O2SAT 97
[2016-08-26 20:00] VITALS: BP 135/85; PULSE 69; RESP 16; TEMP 97.9; O2SAT 98
[2016-08-27 08:00] VITALS: BP 138/82; PULSE 64; RESP 16; TEMP 97; O2SAT 96
[2016-08-27] MEDS: SELENIUM SULFIDE 1% SHAMPOO 207 ML BOTTLE TOPICAL SCH (09:00)
[2016-08-27] MEDS: DOCUSATE SODIUM 100 MG CAP PO PRN ×2 (09:29→09:35)
[2016-08-27] MEDS: METOPROLOL TARTRATE 25 MG TAB PO SCH ×2 (09:30→09:35)
--- NOTE | 2016-08-27 10:24 | HHI.PR ---
Subjective Remarks Patient seen and examined today. Patient denies any new complaints. No change in clinical status. Objective Vitals Vital Signs Date Time Temp Pulse Resp B/P Pulse Ox O2 Delivery O2 Flow Rate FiO2 08/27/16 08:00 97.0 64 16 138/82 96 08/26/16 20:00 97.9 69 16 135/85 98 I/O 08/26/16 08/26/16 08/26/16 08/27/16 08/27/16 08/27/16 06:59 14:59 22:59 06:59 14:59 22:59 Intake Total 420 ml 320 ml Balance 420 ml 320 ml Intake Oral 420 ml 320 ml # Voids 2 2 # Bowel Movements 0 0 Objective Remarks GENERAL: Well-developed, well-nourished, in no acute distress. alert and orientated to person, month, year, place HEENT: Head is normocephalic without any lesions or masses noted. Facial features are symmetric. Eyes: Pupils equal round reactive to light. Extraocular muscles are intact. Conjunctivae were clear. NECK: Supple without any masses. Trachea midline no deviation. No JVD CARDIAC: Regular rhythm, regular rate. S1/S2 are heard. No murmurs gallops or rubs. LUNGS: Clear to auscultation bilaterally. No wheeze, rhonchi or rales. No use of accessory muscles on inspiration or expiration. ABDOMEN: Soft, nontender. Nondistended. Bowel sounds heard in all 4 quadrants. No organomegaly or masses. Negative rebound, negative guarding EXTREMITIES: No edema, pulses are equal bilaterally. No cyanosis or clubbing NEUROLOGY: Mood and affect appear appropriate. Cranial nerves II through XII grossly intact. Moving all extremities, speech is clear Procedures 02/14 with right frontal bur hole and left subclavian line placement 02/15 with right occipital craniectomy with SDH evacuation 02/20 tracheostomy and PEG placement 02/25 left frontal temporoparietal decompressive craniotomy 03/06 PICC 03/29 bone flap replacement Urinary Catheter: No Date of Insertion: Apr 10, 2016 Date of Removal: Apr 22, 2016 Vascular Central Line Catheter: No A/P Assessment and Plan S/P traumatic brain injury: Initial head CT with right occipital bone fracture along with intraparenchymal hemorrhage, bilateral subdural hematomas, and subarachnoid hemorrhages. Patient is status post right frontal bur hole, right occipital craniectomy with SDH evacuation, left frontal temporoparietal decompressive craniotomy, and subsequent bone flap replacement. Neurosurgery has signed off. Discharged from PT/speech therapy/occupational therapy as patient has reached maximum benefit Keppra bid for seizure prophylaxis Hypertension: Stable Blood pressure stable, Metoprolol 12.5 mg every 12 hours Protein Calorie malnutrition: Resolved Initially requiring PEG tube, however patient had been eating well and PEG was removed 05/25. Continue current diet Cerumen impaction Continue Debrox and irrigation Chronic neck pain Continue Tylenol and heat as needed DVT prophylaxis: Patient is ambulating well, low risk Discharge Planning Discharge planning per case management, daily patient has been accepted at the [facility]', however awaiting financials to be sorted out. 08/20/16 PATIENT HAS BEEN ACCEPTED TO THE [facility] WHEN FINANCIAL BARRIERS ARE RESOLVED RELATED TO PATIENT'S EARLY INTERMEDIATE BENEFITS. HEALTH CARE SURROGATE IS ASSISTING IN LOCATING NECESSARY DOCUMENTATION. CM FOLLOWING. Kaushik Mcguire Aug 27, 2016 10:23
[2016-08-27] MEDS: levETIRAcetam 500 MG TAB PO SCH ×2 (11:11→21:09)
[2016-08-27 20:00] VITALS: BP 120/78; PULSE 99; RESP 20; TEMP 98.6; O2SAT 95
[2016-08-28 08:00] VITALS: BP 122/86; PULSE 60; RESP 18; TEMP 96; O2SAT 96
[2016-08-28] MEDS: SELENIUM SULFIDE 1% SHAMPOO 207 ML BOTTLE TOPICAL SCH (08:39)
[2016-08-28] MEDS: METOPROLOL TARTRATE 25 MG TAB PO SCH ×2 (08:39→20:25)
[2016-08-28] MEDS: levETIRAcetam 500 MG TAB PO SCH ×2 (08:39→20:25)
--- NOTE | 2016-08-28 09:15 | HHI.PR ---
Subjective Remarks Patient seen and examined today. Patient denies any complaints. No change in clinical status. Objective Vitals Vital Signs Date Time Temp Pulse Resp B/P Pulse Ox O2 Delivery O2 Flow Rate FiO2 08/28/16 08:00 96.0 60 18 122/86 96 08/27/16 20:00 98.6 99 20 120/78 95 I/O 08/27/16 08/27/16 08/27/16 08/28/16 08/28/16 08/28/16 06:59 14:59 22:59 06:59 14:59 22:59 Intake Total 320 ml 720 ml 240 ml 240 ml Balance 320 ml 720 ml 240 ml 240 ml Intake Oral 320 ml 720 ml 240 ml 240 ml # Voids 2 2 2 2 # Bowel Movements 0 0 0 Objective Remarks GENERAL: Well-developed, well-nourished, in no acute distress. alert and orientated to person, month, year, place HEENT: Head is normocephalic without any lesions or masses noted. Facial features are symmetric. Eyes: Pupils equal round reactive to light. Extraocular muscles are intact. Conjunctivae were clear. NECK: Supple without any masses. Trachea midline no deviation. No JVD CARDIAC: Regular rhythm, regular rate. S1/S2 are heard. No murmurs gallops or rubs. LUNGS: Clear to auscultation bilaterally. No wheeze, rhonchi or rales. No use of accessory muscles on inspiration or expiration. ABDOMEN: Soft, nontender. Nondistended. Bowel sounds heard in all 4 quadrants. No organomegaly or masses. Negative rebound, negative guarding EXTREMITIES: No edema, pulses are equal bilaterally. No cyanosis or clubbing NEUROLOGY: Mood and affect appear appropriate. Cranial nerves II through XII grossly intact. Moving all extremities, speech is clear Procedures 02/14 with right frontal bur hole and left subclavian line placement 02/15 with right occipital craniectomy with SDH evacuation 02/20 tracheostomy and PEG placement 02/25 left frontal temporoparietal decompressive craniotomy 03/06 PICC 03/29 bone flap replacement Urinary Catheter: No Date of Insertion: Apr 10, 2016 Date of Removal: Apr 22, 2016 Vascular Central Line Catheter: No A/P Assessment and Plan S/P traumatic brain injury: Initial head CT with right occipital bone fracture along with intraparenchymal hemorrhage, bilateral subdural hematomas, and subarachnoid hemorrhages. Patient is status post right frontal bur hole, right occipital craniectomy with SDH evacuation, left frontal temporoparietal decompressive craniotomy, and subsequent bone flap replacement. Neurosurgery has signed off. Discharged from PT/speech therapy/occupational therapy as patient has reached maximum benefit Keppra bid for seizure prophylaxis Hypertension: Stable Blood pressure stable, Metoprolol 12.5 mg every 12 hours Protein Calorie malnutrition: Resolved Initially requiring PEG tube, however patient had been eating well and PEG was removed 05/25. Continue current diet Cerumen impaction Continue Debrox and irrigation Chronic neck pain Continue Tylenol and heat as needed DVT prophylaxis: Patient is ambulating well, low risk Discharge Planning Discharge planning per case management, daily patient has been accepted at the [facility], however awaiting financials to be sorted out. 08/20/16 PATIENT HAS BEEN ACCEPTED TO THE [facility] WHEN FINANCIAL BARRIERS ARE RESOLVED RELATED TO PATIENT'S EARLY [employer] BENEFITS. HEALTH CARE SURROGATE IS ASSISTING IN LOCATING NECESSARY DOCUMENTATION. CM FOLLOWING. Kaushik Mcguire Aug 28, 2016 09:15
[2016-08-28 20:00] VITALS: BP 133/8; PULSE 66; RESP 16; TEMP 97.7; O2SAT 95
--- NOTE | 2016-08-29 08:06 | HHI.PR ---
Subjective Remarks Patient seen and examined today. Patient still complaining of dullness in his hearing in his right ear. Objective Vitals Vital Signs Date Time Temp Pulse Resp B/P Pulse Ox O2 Delivery O2 Flow Rate FiO2 08/28/16 20:00 97.7 66 16 133/8 95 I/O 08/28/16 08/28/16 08/28/16 08/29/16 08/29/16 08/29/16 06:59 14:59 22:59 06:59 14:59 22:59 Intake Total 240 ml 860 ml 0 ml 220 ml Balance 240 ml 860 ml 0 ml 220 ml Intake Oral 240 ml 860 ml 220 ml IV Total 0 ml 0 ml # Voids 2 3 2 # Bowel Movements 0 0 Objective Remarks GENERAL: Well-developed, well-nourished, in no acute distress. alert and orientated to person, month, year, place HEENT: Head is normocephalic without any lesions or masses noted. Facial features are symmetric. Eyes: Pupils equal round reactive to light. Extraocular muscles are intact. Conjunctivae were clear. NECK: Supple without any masses. Trachea midline no deviation. No JVD CARDIAC: Regular rhythm, regular rate. S1/S2 are heard. No murmurs gallops or rubs. LUNGS: Clear to auscultation bilaterally. No wheeze, rhonchi or rales. No use of accessory muscles on inspiration or expiration. ABDOMEN: Soft, nontender. Nondistended. Bowel sounds heard in all 4 quadrants. No organomegaly or masses. Negative rebound, negative guarding EXTREMITIES: No edema, pulses are equal bilaterally. No cyanosis or clubbing NEUROLOGY: Mood and affect appear appropriate. Cranial nerves II through XII grossly intact. Moving all extremities, speech is clear Procedures 02/14 with right frontal bur hole and left subclavian line placement 02/15 with right occipital craniectomy with SDH evacuation 02/20 tracheostomy and PEG placement 02/25 left frontal temporoparietal decompressive craniotomy 03/06 PICC 03/29 bone flap replacement Urinary Catheter: No Date of Insertion: Apr 10, 2016 Date of Removal: Apr 22, 2016 Vascular Central Line Catheter: No A/P Assessment and Plan S/P traumatic brain injury: Initial head CT with right occipital bone fracture along with intraparenchymal hemorrhage, bilateral subdural hematomas, and subarachnoid hemorrhages. Patient is status post right frontal bur hole, right occipital craniectomy with SDH evacuation, left frontal temporoparietal decompressive craniotomy, and subsequent bone flap replacement. Neurosurgery has signed off. Discharged from PT/speech therapy/occupational therapy as patient has reached maximum benefit Keppra bid for seizure prophylaxis Hypertension: Stable Blood pressure stable, Metoprolol 12.5 mg every 12 hours Protein Calorie malnutrition: Resolved Initially requiring PEG tube, however patient had been eating well and PEG was removed 05/25. Continue current diet Cerumen impaction Continue Debrox and irrigation Chronic neck pain Continue Tylenol and heat as needed DVT prophylaxis: Patient is ambulating well, low risk Discharge Planning Discharge planning per case management, daily patient has been accepted at the [facility], however awaiting financials to be sorted out. 08/28/16 NO CHANGES RESULTING IN REGARD TO FINANCIAL BARRIERS TO PLACING PATIENT. PATIENT DOES HAVE A HEALTH CARE SURROGATE TO ASSIST. THE [facility] HAS ACCEPTED THE PATIENT ONCE THE FINANCIAL BARRIERS ARE RESOLVED. PATIENT HAS BEEN DISCHARGED FROM PT/OT/ST HE HAS REACHED HIS MAXIMUM BENEFIT. Kaushik Mcguire Aug 29, 2016 08:06
[2016-08-29] MEDS: METOPROLOL TARTRATE 25 MG TAB PO SCH ×2 (08:47→20:36)
[2016-08-29] MEDS: SELENIUM SULFIDE 1% SHAMPOO 207 ML BOTTLE TOPICAL SCH (08:47)
[2016-08-29] MEDS: levETIRAcetam 500 MG TAB PO SCH ×2 (08:47→20:36)
[2016-08-29 09:59] VITALS: BP 115/88; PULSE 71; RESP 20; TEMP 97.1; O2SAT 98
[2016-08-29 20:00] VITALS: BP 133/79; PULSE 61; RESP 16; TEMP 98.5
--- NOTE | 2016-08-30 07:49 | HHI.PR ---
Subjective Remarks Patient seen and examined today. Patient still complaining of right ear with hearing dullness Objective Vitals Vital Signs Date Time Temp Pulse Resp B/P Pulse Ox O2 Delivery O2 Flow Rate FiO2 08/29/16 20:00 98.5 61 16 133/79 08/29/16 09:59 97.1 71 20 115/88 98 I/O 08/29/16 08/29/16 08/29/16 08/30/16 08/30/16 08/30/16 06:59 14:59 22:59 06:59 14:59 22:59 Intake Total 220 ml 1000 ml 120 ml 120 ml Balance 220 ml 1000 ml 120 ml 120 ml Intake Oral 220 ml 1000 ml 120 ml 120 ml IV Total 0 ml # Voids 2 4 2 1 # Bowel Movements 0 1 0 Objective Remarks GENERAL: Well-developed, well-nourished, in no acute distress. alert and orientated to person, month, year, place HEENT: Head is normocephalic without any lesions or masses noted. Facial features are symmetric. Eyes: Pupils equal round reactive to light. Extraocular muscles are intact. Conjunctivae were clear. Right canal included with cerumen NECK: Supple without any masses. Trachea midline no deviation. No JVD CARDIAC: Regular rhythm, regular rate. S1/S2 are heard. No murmurs gallops or rubs. LUNGS: Clear to auscultation bilaterally. No wheeze, rhonchi or rales. No use of accessory muscles on inspiration or expiration. ABDOMEN: Soft, nontender. Nondistended. Bowel sounds heard in all 4 quadrants. No organomegaly or masses. Negative rebound, negative guarding EXTREMITIES: No edema, pulses are equal bilaterally. No cyanosis or clubbing NEUROLOGY: Mood and affect appear appropriate. Cranial nerves II through XII grossly intact. Moving all extremities, speech is clear Procedures 02/14 with right frontal bur hole and left subclavian line placement 02/15 with right occipital craniectomy with SDH evacuation 02/20 tracheostomy and PEG placement 02/25 left frontal temporoparietal decompressive craniotomy 03/06 PICC 03/29 bone flap replacement Urinary Catheter: No Date of Insertion: Apr 10, 2016 Date of Removal: Apr 22, 2016 Vascular Central Line Catheter: No A/P Assessment and Plan S/P traumatic brain injury: Initial head CT with right occipital bone fracture along with intraparenchymal hemorrhage, bilateral subdural hematomas, and subarachnoid hemorrhages. Patient is status post right frontal bur hole, right occipital craniectomy with SDH evacuation, left frontal temporoparietal decompressive craniotomy, and subsequent bone flap replacement. Neurosurgery has signed off. Discharged from PT/speech therapy/occupational therapy as patient has reached maximum benefit Keppra bid for seizure prophylaxis Hypertension: Stable Blood pressure stable, Metoprolol 12.5 mg every 12 hours Protein Calorie malnutrition: Resolved Initially requiring PEG tube, however patient had been eating well and PEG was removed 05/25. Continue current diet Cerumen impaction/External ear canal inflammation Try dexamethasone drops. Continue Debrox and irrigation Chronic neck pain Continue Tylenol and heat as needed DVT prophylaxis: Patient is ambulating well, low risk Discharge Planning Discharge planning per case management, daily patient has been accepted at the [facility], however awaiting financials to be sorted out. 08/29/16 1049 PER LOUANN AT THE [facility]. HE IS WAITING TO GET CORRECT AMOUNT IN PATIENTS BANK ACCT. HE HAS BEEN RECEIVING CKS SINCE HOSP STAY [facility] JOSEY IS SUPPOSED ASSISTING WITH THIS. I CALLED AND LEFT MESSAGE FOR JOSEY TO CALL ME TO GET UPDATE ON THIS MATTER AWAITNF CALL RETURN PATIENT IS ACCEPTED IF WE CAN CLEAR INCOME ISSUE DAVID ORTIZ LPN/Kaushik Figueroa Aug 30, 2016 07:49 Korey Orellana MD Aug 30, 2016 11:26
[2016-08-30] MEDS: METOPROLOL TARTRATE 25 MG TAB PO SCH ×2 (08:41→20:45)
[2016-08-30] MEDS: levETIRAcetam 500 MG TAB PO SCH ×2 (08:41→20:45)
[2016-08-30] MEDS: SELENIUM SULFIDE 1% SHAMPOO 207 ML BOTTLE TOPICAL SCH (08:43)
[2016-08-30 09:04] VITALS: BP 125/79; RESP 16; TEMP 97.3; O2SAT 98
[2016-08-30 20:00] VITALS: BP 145/89; PULSE 63; RESP 18; TEMP 96.4; O2SAT 97
[2016-08-31 08:00] VITALS: BP 114/80; PULSE 63; RESP 18; TEMP 95.6; O2SAT 96
--- NOTE | 2016-08-31 08:16 | HHI.PR ---
Subjective Remarks Patient seen and examined today. Patient denies any new complaints. Patient still with decreased hearing in the right ear. Objective Vitals Vital Signs Date Time Temp Pulse Resp B/P Pulse Ox O2 Delivery O2 Flow Rate FiO2 08/30/16 20:00 96.4 63 18 145/89 97 08/30/16 09:04 97.3 16 125/79 98 I/O 08/30/16 08/30/16 08/30/16 08/31/16 08/31/16 08/31/16 07:00 15:00 23:00 07:00 15:00 23:00 Intake Total 120 ml 1460 ml 360 ml 240 ml Balance 120 ml 1460 ml 360 ml 240 ml Intake Oral 120 ml 1460 ml 360 ml 240 ml # Voids 1 7 2 2 # Bowel Movements 0 0 0 Objective Remarks GENERAL: Well-developed, well-nourished, in no acute distress. alert and orientated to person, month, year, place HEENT: Head is normocephalic without any lesions or masses noted. Facial features are symmetric. Eyes: Pupils equal round reactive to light. Extraocular muscles are intact. Conjunctivae were clear. Right canal with edema, erythema and occluded with cerumen NECK: Supple without any masses. Trachea midline no deviation. No JVD CARDIAC: Regular rhythm, regular rate. S1/S2 are heard. No murmurs gallops or rubs. LUNGS: Clear to auscultation bilaterally. No wheeze, rhonchi or rales. No use of accessory muscles on inspiration or expiration. ABDOMEN: Soft, nontender. Nondistended. Bowel sounds heard in all 4 quadrants. No organomegaly or masses. Negative rebound, negative guarding EXTREMITIES: No edema, pulses are equal bilaterally. No cyanosis or clubbing NEUROLOGY: Mood and affect appear appropriate. Cranial nerves II through XII grossly intact. Moving all extremities, speech is clear Procedures 02/14 with right frontal bur hole and left subclavian line placement 02/15 with right occipital craniectomy with SDH evacuation 02/20 tracheostomy and PEG placement 02/25 left frontal temporoparietal decompressive craniotomy 03/06 PICC 03/29 bone flap replacement Urinary Catheter: No Date of Insertion: Apr 10, 2016 Date of Removal: Apr 22, 2016 Vascular Central Line Catheter: No A/P Assessment and Plan S/P traumatic brain injury: Initial head CT with right occipital bone fracture along with intraparenchymal hemorrhage, bilateral subdural hematomas, and subarachnoid hemorrhages. Patient is status post right frontal bur hole, right occipital craniectomy with SDH evacuation, left frontal temporoparietal decompressive craniotomy, and subsequent bone flap replacement. Neurosurgery has signed off. Discharged from PT/speech therapy/occupational therapy as patient has reached maximum benefit Keppra bid for seizure prophylaxis Hypertension: Stable Blood pressure stable, Metoprolol 12.5 mg every 12 hours Protein Calorie malnutrition: Resolved Initially requiring PEG tube, however patient had been eating well and PEG was removed 05/25. Continue current diet Cerumen impaction Continue Debrox and irrigation Start Cortisporin otic solution Chronic neck pain Continue Tylenol and heat as needed DVT prophylaxis: Patient is ambulating well, low risk Discharge Planning Discharge planning per case management, daily patient has been accepted at the [facility], however awaiting financials to be sorted out. 08/29/16 1049 PER LOUANN AT THE [facility]. HE IS WAITING TO GET CORRECT AMOUNT IN PATIENTS BANK ACCT. HE HAS BEEN RECEIVING CKS SINCE [facility] SUPPOSED ASSISTING WITH THIS. I CALLED AND LEFT MESSAGE FOR JOSEY TO CALL ME TO GET UPDATE ON THIS MATTER AWAITNF CALL RETURN PATIENT IS ACCEPTED IF WE CAN CLEAR INCOME ISSUE DAVID ORTIZ LPN/Kaushik Figueroa Aug 31, 2016 08:16
[2016-08-31] MEDS: levETIRAcetam 500 MG TAB PO SCH ×2 (08:31→21:25)
[2016-08-31] MEDS: METOPROLOL TARTRATE 25 MG TAB PO SCH ×2 (08:31→21:25)
[2016-08-31] MEDS: SELENIUM SULFIDE 1% SHAMPOO 207 ML BOTTLE TOPICAL SCH (08:31)
[2016-08-31] MEDS: NEOMYCIN/POLYMYXIN/HYDROCORT OTIC SOLN 10 ML BTL RIGHT EAR SCH ×4 (08:38→21:25)
[2016-08-31 21:36] VITALS: BP 121/87; PULSE 63; RESP 18; TEMP 97.6; O2SAT 98
[2016-09-01] MEDS: NEOMYCIN/POLYMYXIN/HYDROCORT OTIC SOLN 10 ML BTL RIGHT EAR SCH ×4 (05:52→23:47)
[2016-09-01 08:00] VITALS: BP 113/78; PULSE 64; RESP 17; TEMP 96.4; O2SAT 98
--- NOTE | 2016-09-01 08:09 | HHI.PR ---
Subjective Remarks Patient seen and examined today. Patient denies any new complaints. No change in clinical status. Objective Vitals Vital Signs Date Time Temp Pulse Resp B/P Pulse Ox O2 Delivery O2 Flow Rate FiO2 08/31/16 21:36 97.6 63 18 121/87 98 I/O 08/31/16 08/31/16 08/31/16 09/01/16 09/01/16 09/01/16 07:00 15:00 23:00 07:00 15:00 23:00 Intake Total 240 ml 360 ml Balance 240 ml 360 ml Intake Oral 240 ml 360 ml # Voids 2 2 1 1 # Bowel Movements 0 Objective Remarks GENERAL: Well-developed, well-nourished, in no acute distress. alert and orientated to person, month, year, place HEENT: Head is normocephalic without any lesions or masses noted. Facial features are symmetric. Eyes: Pupils equal round reactive to light. Extraocular muscles are intact. Conjunctivae were clear. Right canal with edema, erythema and occluded with cerumen NECK: Supple without any masses. Trachea midline no deviation. No JVD CARDIAC: Regular rhythm, regular rate. S1/S2 are heard. No murmurs gallops or rubs. LUNGS: Clear to auscultation bilaterally. No wheeze, rhonchi or rales. No use of accessory muscles on inspiration or expiration. ABDOMEN: Soft, nontender. Nondistended. Bowel sounds heard in all 4 quadrants. No organomegaly or masses. Negative rebound, negative guarding EXTREMITIES: No edema, pulses are equal bilaterally. No cyanosis or clubbing NEUROLOGY: Mood and affect appear appropriate. Cranial nerves II through XII grossly intact. Moving all extremities, speech is clear Procedures 02/14 with right frontal bur hole and left subclavian line placement 02/15 with right occipital craniectomy with SDH evacuation 02/20 tracheostomy and PEG placement 02/25 left frontal temporoparietal decompressive craniotomy 03/06 PICC 03/29 bone flap replacement Urinary Catheter: No Date of Insertion: Apr 10, 2016 Date of Removal: Apr 22, 2016 Vascular Central Line Catheter: No A/P Assessment and Plan S/P traumatic brain injury: Initial head CT with right occipital bone fracture along with intraparenchymal hemorrhage, bilateral subdural hematomas, and subarachnoid hemorrhages. Patient is status post right frontal bur hole, right occipital craniectomy with SDH evacuation, left frontal temporoparietal decompressive craniotomy, and subsequent bone flap replacement. Neurosurgery has signed off. Discharged from PT/speech therapy/occupational therapy as patient has reached maximum benefit Keppra bid for seizure prophylaxis Hypertension: Stable Blood pressure stable, Metoprolol 12.5 mg every 12 hours Protein Calorie malnutrition: Resolved Initially requiring PEG tube, however patient had been eating well and PEG was removed 05/25. Continue current diet Cerumen impaction Continue Cortisporin otic solution Chronic neck pain Continue Tylenol and heat as needed DVT prophylaxis: Patient is ambulating well, low risk Discharge Planning Discharge planning per case management, daily patient has been accepted at the [facility] [place], however awaiting financials to be sorted out. 08/29/16 1049 PER LOUANN AT THE [facility]. HE IS WAITING TO GET CORRECT AMOUNT IN PATIENTS BANK ACCT. HE HAS BEEN RECEIVING CKS SINCE HOSP STAY [facility] IS SUPPOSED ASSISTING WITH THIS. I CALLED AND LEFT MESSAGE FOR JOSEY TO CALL ME TO GET UPDATE ON THIS MATTER AWAITNF CALL RETURN PATIENT IS ACCEPTED IF WE CAN CLEAR INCOME ISSUE DAVID ORTIZ LPN/Kaushik Figueroa Sep 01, 2016 08:09
[2016-09-01] MEDS: METOPROLOL TARTRATE 25 MG TAB PO SCH ×3 (08:38→21:13)
[2016-09-01] MEDS: levETIRAcetam 500 MG TAB PO SCH ×2 (08:38→21:13)
[2016-09-01] MEDS: SELENIUM SULFIDE 1% SHAMPOO 207 ML BOTTLE TOPICAL SCH (08:39)
[2016-09-01 20:59] VITALS: BP 136/78; PULSE 67; RESP 18; TEMP 96.3; O2SAT 97
[2016-09-02] MEDS: NEOMYCIN/POLYMYXIN/HYDROCORT OTIC SOLN 10 ML BTL RIGHT EAR SCH ×4 (05:51→23:20)
[2016-09-02 08:00] VITALS: BP 127/84; PULSE 74; RESP 20; TEMP 96.6; O2SAT 97
[2016-09-02] MEDS: METOPROLOL TARTRATE 25 MG TAB PO SCH ×2 (08:47→21:34)
[2016-09-02] MEDS: levETIRAcetam 500 MG TAB PO SCH ×2 (08:47→21:34)
[2016-09-02] MEDS: SELENIUM SULFIDE 1% SHAMPOO 207 ML BOTTLE TOPICAL SCH (08:48)
--- NOTE | 2016-09-02 09:36 | HHI.PR ---
Subjective Remarks Patient seen and examined today. Patient still complaining of dullness in hearing of the right ear. Objective Vitals Vital Signs Date Time Temp Pulse Resp B/P Pulse Ox O2 Delivery O2 Flow Rate FiO2 09/02/16 08:00 96.6 74 20 127/84 97 09/01/16 20:59 96.3 67 18 136/78 97 I/O 09/01/16 09/01/16 09/01/16 09/02/16 09/02/16 09/02/16 06:59 14:59 22:59 06:59 14:59 22:59 Intake Total 480 ml Balance 480 ml Intake Oral 480 ml # Voids 1 2 1 2 # Bowel Movements 1 1 Objective Remarks GENERAL: Well-developed, well-nourished, in no acute distress. alert and orientated to person, month, year, place HEENT: Head is normocephalic without any lesions or masses noted. Facial features are symmetric. Eyes: Pupils equal round reactive to light. Extraocular muscles are intact. Conjunctivae were clear. NECK: Supple without any masses. Trachea midline no deviation. No JVD CARDIAC: Regular rhythm, regular rate. S1/S2 are heard. No murmurs gallops or rubs. LUNGS: Clear to auscultation bilaterally. No wheeze, rhonchi or rales. No use of accessory muscles on inspiration or expiration. ABDOMEN: Soft, nontender. Nondistended. Bowel sounds heard in all 4 quadrants. No organomegaly or masses. Negative rebound, negative guarding EXTREMITIES: No edema, pulses are equal bilaterally. No cyanosis or clubbing NEUROLOGY: Mood and affect appear appropriate. Cranial nerves II through XII grossly intact. Moving all extremities, speech is clear Procedures 02/14 with right frontal bur hole and left subclavian line placement 02/15 with right occipital craniectomy with SDH evacuation 02/20 tracheostomy and PEG placement 02/25 left frontal temporoparietal decompressive craniotomy 03/06 PICC 03/29 bone flap replacement Urinary Catheter: No Date of Insertion: Apr 10, 2016 Date of Removal: Apr 22, 2016 Vascular Central Line Catheter: No A/P Assessment and Plan S/P traumatic brain injury: Initial head CT with right occipital bone fracture along with intraparenchymal hemorrhage, bilateral subdural hematomas, and subarachnoid hemorrhages. Patient is status post right frontal bur hole, right occipital craniectomy with SDH evacuation, left frontal temporoparietal decompressive craniotomy, and subsequent bone flap replacement. Neurosurgery has signed off. Discharged from PT/speech therapy/occupational therapy as patient has reached maximum benefit Keppra bid for seizure prophylaxis Hypertension: Stable Blood pressure stable, Metoprolol 12.5 mg every 12 hours Protein Calorie malnutrition: Resolved Initially requiring PEG tube, however patient had been eating well and PEG was removed 05/25. Continue current diet Cerumen impaction Continue Cortisporin otic solution Chronic neck pain Continue Tylenol and heat as needed DVT prophylaxis: Patient is ambulating well, low risk Discharge Planning Discharge planning per case management, daily patient has been accepted at [facility], however awaiting financials to be sorted out. 08/29/16 1049 PER LOUANN AT THE [facility]. HE IS WAITING TO GET CORRECT AMOUNT IN PATIENTS BANK ACCT. HE HAS BEEN RECEIVING CKS SINCE [facility] IS SUPPOSED ASSISTING WITH THIS. I CALLED AND LEFT MESSAGE FOR JOSEY TO CALL ME TO GET UPDATE ON THIS MATTER AWAITNF CALL RETURN PATIENT IS ACCEPTED IF WE CAN CLEAR INCOME ISSUE DAVID ORTIZ LPN/Kaushik Figueroa Sep 02, 2016 09:36
[2016-09-02 20:00] VITALS: BP 126/83; PULSE 63; RESP 16; TEMP 97; O2SAT 97
[2016-09-03] MEDS: NEOMYCIN/POLYMYXIN/HYDROCORT OTIC SOLN 10 ML BTL RIGHT EAR SCH ×3 (06:42→17:19)
[2016-09-03 08:00] VITALS: BP 109/77; PULSE 62; RESP 17; TEMP 97.7; O2SAT 97
[2016-09-03] MEDS: levETIRAcetam 500 MG TAB PO SCH ×2 (08:13→21:16)
[2016-09-03] MEDS: METOPROLOL TARTRATE 25 MG TAB PO SCH ×2 (08:13→21:17)
[2016-09-03] MEDS: SELENIUM SULFIDE 1% SHAMPOO 207 ML BOTTLE TOPICAL SCH (08:13)
--- NOTE | 2016-09-03 15:18 | HHI.PR ---
Subjective Remarks Patient still complains of wax in his right ear stating he is unable to hear 90% . Denies any pain in the ear. Objective Vitals Vital Signs Date Time Temp Pulse Resp B/P Pulse Ox O2 Delivery O2 Flow Rate FiO2 09/03/16 08:00 97.7 62 17 109/77 97 09/02/16 20:00 97.0 63 16 126/83 97 I/O 09/02/16 09/02/16 09/02/16 09/03/16 09/03/16 09/03/16 06:59 14:59 22:59 06:59 14:59 22:59 Intake Total 810 ml 910 ml 300 ml 520 ml Balance 810 ml 910 ml 300 ml 520 ml Intake Oral 810 ml 910 ml 300 ml 520 ml # Voids 2 3 6 2 # Bowel Movements 1 1 Objective Remarks GENERAL: Well-nourished, well-developed patient in no apparent distress. SKIN: Warm and dry. ENT: Left EAC without cerumen. Left TM nonerythematous without bulging or perforation. Right EAC is occluded with soft brown cerumen. No pain with right ear tug. No inflammation of the visible right EAC. CARDIOVASCULAR: Regular rate and rhythm. RESPIRATORY: No accessory muscle use. Clear to auscultation. Breath sounds equal bilaterally. GASTROINTESTINAL: Abdomen soft, non-tender, nondistended. NEUROLOGICAL: Awake and alert. Motor grossly within normal limits. Normal speech. PSYCHIATRIC: Appropriate mood and affect. Procedures 02/14 with right frontal bur hole and left subclavian line placement 02/15 with right occipital craniectomy with SDH evacuation 02/20 tracheostomy and PEG placement 02/25 left frontal temporoparietal decompressive craniotomy 03/06 PICC 03/29 bone flap replacement Urinary Catheter: No Date of Insertion: Apr 10, 2016 Date of Removal: Apr 22, 2016 Vascular Central Line Catheter: No A/P Problem List: (1) Traumatic brain injury ICD Code: S06.9X9A Status: Acute (2) HTN (hypertension) ICD Code: I10 Status: Chronic (3) Insomnia ICD Code: G47.00 Status: Acute (4) Urinary retention ICD Code: R33.9 Status: Resolved (5) Protein calorie malnutrition ICD Code: E46 Status: Acute (6) Cervical muscle strain ICD Code: S16.1XXA Status: Acute (7) Bilateral impacted cerumen ICD Code: H61.23 Status: Acute Assessment and Plan S/P traumatic brain injury: Initial head CT with right occipital bone fracture along with intraparenchymal hemorrhage, bilateral subdural hematomas, and subarachnoid hemorrhages. Patient is status post right frontal bur hole, right occipital craniectomy with SDH evacuation, left frontal temporoparietal decompressive craniotomy, and subsequent bone flap replacement. Neurosurgery has signed off. Discharged from PT/speech therapy/occupational therapy as patient has reached maximum benefit Keppra bid for seizure prophylaxis Hypertension: Stable Blood pressure stable, Metoprolol 12.5 mg every 12 hours Protein Calorie malnutrition: Resolved Initially requiring PEG tube, however patient had been eating well and PEG was removed 05/25. Continue current diet Cerumen impaction: s/p ear irrigation x 1 and Debrox treatment. Still has accumulation of cerumen occluding R EAC. Discontinue Cortisporin otic solution as there is no evidence of infection R ear irrigation to be performed by nurse. If unsuccessful will try mineral oil and may require manual removal with loop curette Chronic neck pain Continue Tylenol and heat as needed DVT prophylaxis: Patient is ambulating well, low risk Discharge Planning Patient has been accepted to [place] when financial situation is resolved regarding early senior care benefits. Healthcare surrogate is assisting with this. Problem Qualifiers (1) HTN (hypertension): Qualified Code: I10 - Essential hypertension Christina Hoff Sep 03, 2016 15:18 Ant Mai DO Sep 04, 2016 01:44
[2016-09-03 20:00] VITALS: BP 141/92; PULSE 68; RESP 18; TEMP 96; O2SAT 97
[2016-09-04] MEDS: NEOMYCIN/POLYMYXIN/HYDROCORT OTIC SOLN 10 ML BTL RIGHT EAR SCH ×3 (06:00→09:02)
[2016-09-04 08:00] VITALS: BP 129/88; PULSE 69; RESP 17; TEMP 96.5; O2SAT 98
[2016-09-04] MEDS: METOPROLOL TARTRATE 25 MG TAB PO SCH ×2 (08:58→22:02)
[2016-09-04] MEDS: levETIRAcetam 500 MG TAB PO SCH ×2 (08:59→22:02)
[2016-09-04] MEDS: SELENIUM SULFIDE 1% SHAMPOO 207 ML BOTTLE TOPICAL SCH (09:00)
--- NOTE | 2016-09-04 14:43 | HHI.PR ---
Subjective Remarks Patient underwent R ear irrigation for cerumen impaction yesterday and now admits to normal hearing in the right ear. Objective Vitals Vital Signs Date Time Temp Pulse Resp B/P Pulse Ox O2 Delivery O2 Flow Rate FiO2 09/04/16 08:00 96.5 69 17 129/88 98 09/03/16 20:00 96.0 68 18 141/92 97 I/O 09/03/16 09/03/16 09/03/16 09/04/16 09/04/16 09/04/16 07:00 15:00 23:00 07:00 15:00 23:00 Intake Total 300 ml 520 ml 800 ml 300 ml Balance 300 ml 520 ml 800 ml 300 ml Intake Oral 300 ml 520 ml 800 ml 300 ml # Voids 2 3 2 Objective Remarks GENERAL: Well-nourished, well-developed patient in no apparent distress. SKIN: Warm and dry. CARDIOVASCULAR: Regular rate and rhythm. RESPIRATORY: No accessory muscle use. Clear to auscultation. Breath sounds equal bilaterally. NEUROLOGICAL: Awake and alert. Hearing grossly intact R ear. Motor grossly within normal limits. Normal speech. PSYCHIATRIC: Appropriate mood and affect. Procedures 02/14 with right frontal bur hole and left subclavian line placement 02/15 with right occipital craniectomy with SDH evacuation 02/20 tracheostomy and PEG placement 02/25 left frontal temporoparietal decompressive craniotomy 03/06 PICC 03/29 bone flap replacement Urinary Catheter: No Date of Insertion: Apr 10, 2016 Date of Removal: Apr 22, 2016 Vascular Central Line Catheter: No A/P Problem List: (1) Traumatic brain injury ICD Code: S06.9X9A Status: Acute (2) HTN (hypertension) ICD Code: I10 Status: Chronic (3) Insomnia ICD Code: G47.00 Status: Acute (4) Urinary retention ICD Code: R33.9 Status: Resolved (5) Protein calorie malnutrition ICD Code: E46 Status: Acute (6) Cervical muscle strain ICD Code: S16.1XXA Status: Acute (7) Bilateral impacted cerumen ICD Code: H61.23 Status: Resolved Assessment and Plan S/P traumatic brain injury: Initial head CT with right occipital bone fracture along with intraparenchymal hemorrhage, bilateral subdural hematomas, and subarachnoid hemorrhages. Patient is status post right frontal bur hole, right occipital craniectomy with SDH evacuation, left frontal temporoparietal decompressive craniotomy, and subsequent bone flap replacement. Neurosurgery has signed off. Discharged from PT/speech therapy/occupational therapy as patient has reached maximum benefit Keppra bid for seizure prophylaxis Hypertension: Stable Blood pressure stable, Metoprolol 12.5 mg every 12 hours Protein Calorie malnutrition: Resolved Initially requiring PEG tube, however patient had been eating well and PEG was removed 05/25. Continue current diet Cerumen impaction: Resolved. S/p Debrox treatment and repeat R ear irrigation yesterday. Hearing now improved. Cortisporin otic solution discontinued as there is no evidence of infection Chronic neck pain Continue Tylenol and heat as needed DVT prophylaxis: Patient is ambulating well, low risk Discharge Planning Patient has been accepted to [place] when financial situation is resolved regarding early [facility] benefits. Healthcare surrogate is assisting with this. Problem Qualifiers (1) HTN (hypertension): Qualified Code: I10 - Essential hypertension Christina Hoff Sep 04, 2016 14:43 Ant Mai DO Sep 05, 2016 00:55
[2016-09-04 20:00] VITALS: BP 130/88; PULSE 67; RESP 18; TEMP 96.9; O2SAT 97
[2016-09-05 08:00] VITALS: BP 135/97; PULSE 63; RESP 17; TEMP 96.4; O2SAT 96
[2016-09-05] MEDS: levETIRAcetam 500 MG TAB PO SCH ×2 (08:33→22:28)
[2016-09-05] MEDS: METOPROLOL TARTRATE 25 MG TAB PO SCH ×2 (08:34→22:28)
[2016-09-05] MEDS: SELENIUM SULFIDE 1% SHAMPOO 207 ML BOTTLE TOPICAL SCH (08:34)
--- NOTE | 2016-09-05 10:54 | HHI.PR ---
Subjective Remarks No acute complaints. No change in clinical status. Objective Vitals Vital Signs Date Time Temp Pulse Resp B/P Pulse Ox O2 Delivery O2 Flow Rate FiO2 09/05/16 08:00 96.4 63 17 135/97 96 09/04/16 20:00 96.9 67 18 130/88 97 I/O 09/04/16 09/04/16 09/04/16 09/05/16 09/05/16 09/05/16 06:59 14:59 22:59 06:59 14:59 22:59 Intake Total 300 ml 720 ml Balance 300 ml 720 ml Intake Oral 300 ml 720 ml # Voids 2 2 2 # Bowel Movements 1 Objective Remarks GENERAL: Well-nourished, well-developed patient in no apparent distress. SKIN: Warm and dry. CARDIOVASCULAR: Regular rate and rhythm. RESPIRATORY: No accessory muscle use. Initially there was one expiratory wheeze on the left which cleared upon subsequent auscultation. GASTROINTESTINAL: Normoactive bowel sounds. Abdomen soft, nontender, nondistended. NEUROLOGICAL: Awake and alert. Motor grossly within normal limits. Normal speech. PSYCHIATRIC: Appropriate mood and affect. Procedures 02/14 with right frontal bur hole and left subclavian line placement 02/15 with right occipital craniectomy with SDH evacuation 02/20 tracheostomy and PEG placement 02/25 left frontal temporoparietal decompressive craniotomy 03/06 PICC 03/29 bone flap replacement Urinary Catheter: No Date of Insertion: Apr 10, 2016 Date of Removal: Apr 22, 2016 Vascular Central Line Catheter: No A/P Problem List: (1) Traumatic brain injury ICD Code: S06.9X9A Status: Acute (2) HTN (hypertension) ICD Code: I10 Status: Chronic (3) Insomnia ICD Code: G47.00 Status: Acute (4) Urinary retention ICD Code: R33.9 Status: Resolved (5) Protein calorie malnutrition ICD Code: E46 Status: Acute (6) Cervical muscle strain ICD Code: S16.1XXA Status: Acute (7) Bilateral impacted cerumen ICD Code: H61.23 Status: Resolved Assessment and Plan S/P traumatic brain injury: Initial head CT with right occipital bone fracture along with intraparenchymal hemorrhage, bilateral subdural hematomas, and subarachnoid hemorrhages. Patient is status post right frontal bur hole, right occipital craniectomy with SDH evacuation, left frontal temporoparietal decompressive craniotomy, and subsequent bone flap replacement. Neurosurgery has signed off. Discharged from PT/speech therapy/occupational therapy as patient has reached maximum benefit Keppra bid for seizure prophylaxis Hypertension: Stable Blood pressure stable, Metoprolol 12.5 mg every 12 hours Protein Calorie malnutrition: Resolved Initially requiring PEG tube, however patient had been eating well and PEG was removed 05/25. Continue current diet Cerumen impaction: Resolved. -S/p Debrox treatment and repeat R ear irrigation. Hearing now improved. Chronic neck pain Continue Tylenol and heat as needed DVT prophylaxis: Patient is ambulating well, low risk Discharge Planning Patient has been accepted to [place] when financial situation is resolved regarding early custodial benefits. Healthcare surrogate is assisting with this. Problem Qualifiers (1) HTN (hypertension): Qualified Code: I10 - Essential hypertension Christina Hoff Sep 05, 2016 10:54 am Ant Mai DO Sep 05, 2016 6:42 pm
[2016-09-05 20:00] VITALS: BP 153/90; PULSE 70; RESP 20; TEMP 96.1; O2SAT 98
[2016-09-06 08:00] VITALS: BP 127/84; PULSE 57; RESP 17; TEMP 96; O2SAT 99
[2016-09-06] MEDS: levETIRAcetam 500 MG TAB PO SCH ×2 (08:37→20:44)
[2016-09-06] MEDS: METOPROLOL TARTRATE 25 MG TAB PO SCH ×2 (08:37→20:44)
[2016-09-06] MEDS: SELENIUM SULFIDE 1% SHAMPOO 207 ML BOTTLE TOPICAL SCH (08:37)
--- NOTE | 2016-09-06 10:03 | HHI.PR ---
Subjective Remarks No acute complaints. No change in clinical status. Objective Vitals Vital Signs Date Time Temp Pulse Resp B/P Pulse Ox O2 Delivery O2 Flow Rate FiO2 09/06/16 08:00 96.0 57 17 127/84 99 09/05/16 20:00 96.1 70 20 153/90 98 I/O 09/05/16 09/05/16 09/05/16 09/06/16 09/06/16 09/06/16 07:00 15:00 23:00 07:00 15:00 23:00 Intake Total 720 ml 120 ml 240 ml Balance 720 ml 120 ml 240 ml Intake Oral 720 ml 120 ml 240 ml # Voids 2 2 1 1 # Bowel Movements 0 1 Objective Remarks GENERAL: Well-nourished, well-developed patient in no apparent distress. SKIN: Warm and dry. CARDIOVASCULAR: Regular rate and rhythm. RESPIRATORY: Limited exam. No accessory muscle use. CTAB. GASTROINTESTINAL: Normoactive bowel sounds. Abdomen soft, nontender, nondistended. NEUROLOGICAL: Awake and alert. Motor grossly within normal limits. Normal speech. Witnessed to be ambulating in the [place] with cane. PSYCHIATRIC: Appropriate mood and affect. Procedures 02/14 with right frontal bur hole and left subclavian line placement 02/15 with right occipital craniectomy with SDH evacuation 02/20 tracheostomy and PEG placement 02/25 left frontal temporoparietal decompressive craniotomy 03/06 PICC 03/29 bone flap replacement Date of Insertion: Apr 10, 2016 Date of Removal: Apr 22, 2016 A/P Problem List: (1) Traumatic brain injury ICD Code: S06.9X9A Status: Acute (2) HTN (hypertension) ICD Code: I10 Status: Chronic (3) Insomnia ICD Code: G47.00 Status: Acute (4) Urinary retention ICD Code: R33.9 Status: Resolved (5) Protein calorie malnutrition ICD Code: E46 Status: Acute (6) Cervical muscle strain ICD Code: S16.1XXA Status: Acute (7) Bilateral impacted cerumen ICD Code: H61.23 Status: Resolved Assessment and Plan S/P traumatic brain injury: Initial head CT with right occipital bone fracture along with intraparenchymal hemorrhage, bilateral subdural hematomas, and subarachnoid hemorrhages. Patient is status post right frontal bur hole, right occipital craniectomy with SDH evacuation, left frontal temporoparietal decompressive craniotomy, and subsequent bone flap replacement. Neurosurgery has signed off. Discharged from PT/speech therapy/occupational therapy as patient has reached maximum benefit Keppra bid for seizure prophylaxis Hypertension: Stable Blood pressure stable, Metoprolol 12.5 mg every 12 hours Protein Calorie malnutrition: Resolved Initially requiring PEG tube, however patient had been eating well and PEG was removed 05/25. Continue current diet Cerumen impaction: Resolved. -S/p Debrox treatment and repeat R ear irrigation. Hearing now improved. Chronic neck pain Continue Tylenol and heat as needed DVT prophylaxis: Patient is ambulating well, low risk Discharge Planning Patient has been accepted to [place] when financial situation is resolved regarding early [facility] benefits. Healthcare surrogate is assisting with this. Problem Qualifiers (1) HTN (hypertension): Qualified Code: I10 - Essential hypertension Christina Hoff Sep 06, 2016 10:03
[2016-09-06 20:00] VITALS: BP 137/84; PULSE 67; RESP 20; TEMP 96.7; O2SAT 97
[2016-09-07 08:00] VITALS: BP 118/91; PULSE 62; RESP 20; TEMP 96.7; O2SAT 98
[2016-09-07] MEDS: levETIRAcetam 500 MG TAB PO SCH ×2 (08:11→21:38)
[2016-09-07] MEDS: METOPROLOL TARTRATE 25 MG TAB PO SCH ×2 (08:11→21:39)
[2016-09-07] MEDS: SELENIUM SULFIDE 1% SHAMPOO 207 ML BOTTLE TOPICAL SCH (08:12)
--- NOTE | 2016-09-07 09:50 | HHI.PR ---
Subjective Remarks No acute complaints. No change in clinical status. Objective Vitals Vital Signs Date Time Temp Pulse Resp B/P Pulse Ox O2 Delivery O2 Flow Rate FiO2 09/07/16 08:00 96.7 62 20 118/91 98 09/06/16 20:00 96.7 67 20 137/84 97 I/O 09/06/16 09/06/16 09/06/16 09/07/16 09/07/16 09/07/16 06:59 14:59 22:59 06:59 14:59 22:59 Intake Total 240 ml 520 ml 480 ml 240 ml Balance 240 ml 520 ml 480 ml 240 ml Intake Oral 240 ml 520 ml 480 ml 240 ml # Voids 1 2 1 # Bowel Movements 0 0 Objective Remarks GENERAL: Well-nourished, well-developed patient in no apparent distress. SKIN: Warm and dry. CARDIOVASCULAR: Regular rate and rhythm. RESPIRATORY: Limited exam. No accessory muscle use. CTAB. GASTROINTESTINAL: Normoactive bowel sounds. Abdomen soft, nontender, nondistended. NEUROLOGICAL: Awake and alert. Motor grossly within normal limits. Normal speech. PSYCHIATRIC: Appropriate mood and affect. Procedures 02/14 with right frontal bur hole and left subclavian line placement 02/15 with right occipital craniectomy with SDH evacuation 02/20 tracheostomy and PEG placement 02/25 left frontal temporoparietal decompressive craniotomy 03/06 PICC 03/29 bone flap replacement Urinary Catheter: No Date of Insertion: Apr 10, 2016 Date of Removal: Apr 22, 2016 Vascular Central Line Catheter: No A/P Problem List: (1) Traumatic brain injury ICD Code: S06.9X9A Status: Acute (2) HTN (hypertension) ICD Code: I10 Status: Chronic (3) Insomnia ICD Code: G47.00 Status: Acute (4) Urinary retention ICD Code: R33.9 Status: Resolved (5) Protein calorie malnutrition ICD Code: E46 Status: Acute (6) Cervical muscle strain ICD Code: S16.1XXA Status: Acute (7) Bilateral impacted cerumen ICD Code: H61.23 Status: Resolved Assessment and Plan S/P traumatic brain injury: Initial head CT with right occipital bone fracture along with intraparenchymal hemorrhage, bilateral subdural hematomas, and subarachnoid hemorrhages. Patient is status post right frontal bur hole, right occipital craniectomy with SDH evacuation, left frontal temporoparietal decompressive craniotomy, and subsequent bone flap replacement. Neurosurgery has signed off. Discharged from PT/speech therapy/occupational therapy as patient has reached maximum benefit Keppra bid for seizure prophylaxis Hypertension: Stable Blood pressure stable, Metoprolol 12.5 mg every 12 hours Protein Calorie malnutrition: Resolved Initially requiring PEG tube, however patient had been eating well and PEG was removed 05/25. Continue current diet Cerumen impaction: Resolved. -S/p Debrox treatment and repeat R ear irrigation. Hearing now improved. Chronic neck pain Continue Tylenol and heat as needed DVT prophylaxis: Patient is ambulating well, low risk Discharge Planning Patient has been accepted to [place] when financial situation is resolved regarding early senior care benefits. Healthcare surrogate is assisting with this. Problem Qualifiers (1) HTN (hypertension): Qualified Code: I10 - Essential hypertension Christina Hoff Sep 07, 2016 09:50
[2016-09-07 20:00] VITALS: BP 150/90; PULSE 80; RESP 16; TEMP 98.1; O2SAT 98
[2016-09-08 08:00] VITALS: BP 127/87; PULSE 68; RESP 20; TEMP 96.8; O2SAT 97
[2016-09-08] MEDS: SELENIUM SULFIDE 1% SHAMPOO 207 ML BOTTLE TOPICAL SCH (08:18)
[2016-09-08] MEDS: METOPROLOL TARTRATE 25 MG TAB PO SCH ×2 (08:18→21:00)
[2016-09-08] MEDS: levETIRAcetam 500 MG TAB PO SCH ×2 (08:18→21:37)
--- NOTE | 2016-09-08 09:47 | HHI.PR ---
Subjective Remarks No acute complaints. No change in clinical status. Objective Vitals Vital Signs Date Time Temp Pulse Resp B/P Pulse Ox O2 Delivery O2 Flow Rate FiO2 09/08/16 08:00 96.8 68 20 127/87 97 09/07/16 20:00 98.1 80 16 150/90 98 I/O 09/07/16 09/07/16 09/07/16 09/08/16 09/08/16 09/08/16 07:00 15:00 23:00 07:00 15:00 23:00 Intake Total 240 ml 690 ml 480 ml Balance 240 ml 690 ml 480 ml Intake Oral 240 ml 690 ml 480 ml # Voids 1 3 2 # Bowel Movements 0 0 Objective Remarks GENERAL: Well-nourished, well-developed patient in no apparent distress. SKIN: Warm and dry. CARDIOVASCULAR: Regular rate and rhythm. RESPIRATORY: No accessory muscle use. CTAB. GASTROINTESTINAL: Abdomen soft, nontender, nondistended. NEUROLOGICAL: Awake and alert. Motor grossly within normal limits. Normal speech. PSYCHIATRIC: Appropriate mood and affect. Procedures 02/14 with right frontal bur hole and left subclavian line placement 02/15 with right occipital craniectomy with SDH evacuation 02/20 tracheostomy and PEG placement 02/25 left frontal temporoparietal decompressive craniotomy 03/06 PICC 03/29 bone flap replacement Urinary Catheter: No Date of Insertion: Apr 10, 2016 Date of Removal: Apr 22, 2016 Vascular Central Line Catheter: No A/P Problem List: (1) Traumatic brain injury ICD Code: S06.9X9A Status: Acute (2) HTN (hypertension) ICD Code: I10 Status: Chronic (3) Insomnia ICD Code: G47.00 Status: Acute (4) Urinary retention ICD Code: R33.9 Status: Resolved (5) Protein calorie malnutrition ICD Code: E46 Status: Acute (6) Cervical muscle strain ICD Code: S16.1XXA Status: Acute (7) Bilateral impacted cerumen ICD Code: H61.23 Status: Resolved Assessment and Plan S/P traumatic brain injury: Initial head CT with right occipital bone fracture along with intraparenchymal hemorrhage, bilateral subdural hematomas, and subarachnoid hemorrhages. Patient is status post right frontal bur hole, right occipital craniectomy with SDH evacuation, left frontal temporoparietal decompressive craniotomy, and subsequent bone flap replacement. Neurosurgery has signed off. Discharged from PT/speech therapy/occupational therapy as patient has reached maximum benefit Keppra bid for seizure prophylaxis Hypertension: Stable Blood pressure stable, Metoprolol 12.5 mg every 12 hours Protein Calorie malnutrition: Resolved Initially requiring PEG tube, however patient had been eating well and PEG was removed 05/25. Continue current diet Cerumen impaction: Resolved. -S/p Debrox treatment and repeat R ear irrigation. Hearing now improved. Chronic neck pain Continue Tylenol and heat as needed DVT prophylaxis: Patient is ambulating well, low risk Discharge Planning Patient has been accepted to [facility] when financial situation is resolved regarding early prison benefits. Healthcare surrogate is assisting with this. Problem Qualifiers (1) HTN (hypertension): Qualified Code: I10 - Essential hypertension Christina Hoff Sep 08, 2016 09:46
[2016-09-08 20:00] VITALS: BP 127/90; PULSE 61; RESP 18; TEMP 97.7; O2SAT 97
[2016-09-09 08:00] VITALS: BP 137/97; PULSE 73; RESP 18; TEMP 96.1; O2SAT 97
[2016-09-09] MEDS: SELENIUM SULFIDE 1% SHAMPOO 207 ML BOTTLE TOPICAL SCH (09:00)
[2016-09-09] MEDS: METOPROLOL TARTRATE 25 MG TAB PO SCH ×2 (09:26→20:42)
[2016-09-09] MEDS: levETIRAcetam 500 MG TAB PO SCH ×2 (09:26→20:42)
--- NOTE | 2016-09-09 10:54 | HHI.PR ---
Subjective Remarks No acute complaints. No change in clinical status. Objective Vitals Vital Signs Date Time Temp Pulse Resp B/P Pulse Ox O2 Delivery O2 Flow Rate FiO2 09/09/16 08:00 96.1 73 18 137/97 97 09/08/16 20:00 97.7 61 18 127/90 97 I/O 09/08/16 09/08/16 09/08/16 09/09/16 09/09/16 09/09/16 07:00 15:00 23:00 07:00 15:00 23:00 Intake Total 960 ml Balance 960 ml Intake Oral 960 ml # Voids 3 # Bowel Movements 1 Objective Remarks GENERAL: Well-nourished, well-developed patient in no apparent distress. SKIN: Warm and dry. CARDIOVASCULAR: Regular rate and rhythm. RESPIRATORY: No accessory muscle use. CTAB. GASTROINTESTINAL: Abdomen soft, nontender, nondistended. NEUROLOGICAL: Awake and alert. Motor grossly within normal limits. Normal speech. PSYCHIATRIC: Appropriate mood and affect. Procedures 02/14 with right frontal bur hole and left subclavian line placement 02/15 with right occipital craniectomy with SDH evacuation 02/20 tracheostomy and PEG placement 02/25 left frontal temporoparietal decompressive craniotomy 03/06 PICC 03/29 bone flap replacement Urinary Catheter: No Date of Insertion: Apr 10, 2016 Date of Removal: Apr 22, 2016 Vascular Central Line Catheter: No A/P Problem List: (1) Traumatic brain injury ICD Code: S06.9X9A Status: Acute (2) HTN (hypertension) ICD Code: I10 Status: Chronic (3) Insomnia ICD Code: G47.00 Status: Acute (4) Urinary retention ICD Code: R33.9 Status: Resolved (5) Protein calorie malnutrition ICD Code: E46 Status: Acute (6) Cervical muscle strain ICD Code: S16.1XXA Status: Acute (7) Bilateral impacted cerumen ICD Code: H61.23 Status: Resolved Assessment and Plan S/P traumatic brain injury: Initial head CT with right occipital bone fracture along with intraparenchymal hemorrhage, bilateral subdural hematomas, and subarachnoid hemorrhages. Patient is status post right frontal bur hole, right occipital craniectomy with SDH evacuation, left frontal temporoparietal decompressive craniotomy, and subsequent bone flap replacement. Neurosurgery has signed off. Discharged from PT/speech therapy/occupational therapy as patient has reached maximum benefit Keppra bid for seizure prophylaxis Hypertension: Intermittent Metoprolol 12.5 mg every 12 hours Monitor BP Protein Calorie malnutrition: Resolved Initially requiring PEG tube, however patient had been eating well and PEG was removed 05/25. Continue current diet Cerumen impaction: Resolved. -S/p Debrox treatment and repeat R ear irrigation. Hearing now improved. Chronic neck pain Continue Tylenol and heat as needed DVT prophylaxis: Patient is ambulating well, low risk Discharge Planning Patient has been accepted to [facility] when financial situation is resolved regarding early snf benefits. Healthcare surrogate is assisting with this. Problem Qualifiers (1) HTN (hypertension): Qualified Code: I10 - Essential hypertension Christina Hoff Sep 09, 2016 10:54
[2016-09-09 20:00] VITALS: BP 142/79; PULSE 72; RESP 20; TEMP 97.6; O2SAT 97
[2016-09-10 08:00] VITALS: BP 121/84; PULSE 54; RESP 18; TEMP 96.4; O2SAT 98
[2016-09-10] MEDS: levETIRAcetam 500 MG TAB PO SCH ×2 (08:54→20:46)
[2016-09-10] MEDS: METOPROLOL TARTRATE 25 MG TAB PO SCH ×2 (08:55→20:39)
[2016-09-10] MEDS: SELENIUM SULFIDE 1% SHAMPOO 207 ML BOTTLE TOPICAL SCH (08:55)
--- NOTE | 2016-09-10 09:42 | HHI.PR ---
Subjective Remarks Patient seen and examined today. Patient denies any new complaints. No change in clinical status. Objective Vitals Vital Signs Date Time Temp Pulse Resp B/P Pulse Ox O2 Delivery O2 Flow Rate FiO2 09/10/16 08:00 96.4 54 18 121/84 98 09/09/16 20:00 97.6 72 20 142/79 97 I/O 09/09/16 09/09/16 09/09/16 09/10/16 09/10/16 09/10/16 06:59 14:59 22:59 06:59 14:59 22:59 Intake Total 960 ml 240 ml 240 ml Output Total 1 ml Balance 960 ml 239 ml 240 ml Intake Oral 960 ml 240 ml 240 ml Output Urine Total 1 ml # Voids 3 2 # Bowel Movements 0 0 0 Objective Remarks GENERAL: Well-developed, well-nourished, in no acute distress. alert and orientated to person, month, year, place HEENT: Head is normocephalic without any lesions or masses noted. Facial features are symmetric. Eyes: Pupils equal round reactive to light. Extraocular muscles are intact. Conjunctivae were clear. NECK: Supple without any masses. Trachea midline no deviation. No JVD CARDIAC: Regular rhythm, regular rate. S1/S2 are heard. No murmurs gallops or rubs. LUNGS: Clear to auscultation bilaterally. No wheeze, rhonchi or rales. No use of accessory muscles on inspiration or expiration. ABDOMEN: Soft, nontender. Nondistended. Bowel sounds heard in all 4 quadrants. No organomegaly or masses. Negative rebound, negative guarding EXTREMITIES: No edema, pulses are equal bilaterally. No cyanosis or clubbing NEUROLOGY: Mood and affect appear appropriate. Cranial nerves II through XII grossly intact. Moving all extremities, speech is clear Procedures 02/14 with right frontal bur hole and left subclavian line placement 02/15 with right occipital craniectomy with SDH evacuation 02/20 tracheostomy and PEG placement 02/25 left frontal temporoparietal decompressive craniotomy 03/06 PICC 03/29 bone flap replacement Urinary Catheter: No Date of Insertion: Apr 10, 2016 Date of Removal: Apr 22, 2016 Vascular Central Line Catheter: No A/P Assessment and Plan S/P traumatic brain injury: Initial head CT with right occipital bone fracture along with intraparenchymal hemorrhage, bilateral subdural hematomas, and subarachnoid hemorrhages. Patient is status post right frontal bur hole, right occipital craniectomy with SDH evacuation, left frontal temporoparietal decompressive craniotomy, and subsequent bone flap replacement. Neurosurgery has signed off. Discharged from PT/speech therapy/occupational therapy as patient has reached maximum benefit Keppra bid for seizure prophylaxis Hypertension: Stable Blood pressure stable, Metoprolol 12.5 mg every 12 hours Protein Calorie malnutrition: Resolved Initially requiring PEG tube, however patient had been eating well and PEG was removed 05/25. Continue current diet Chronic neck pain Continue Tylenol and heat as needed DVT prophylaxis: Patient is ambulating well, low risk Discharge Planning Discharge planning per case management, daily patient has been accepted at the [facility]', however awaiting financials to be sorted out. 09/03/16 ULISES FROM [facility] HERE TO SEE PATIENT FOR PLACEMENT AND FEELS HE IS TOO HIGH FUNCTIONING FOR THEIR SNF. PATIENT HAS BEEN ACCEPTED TO THE [facility] WHEN FINANCIALS ARE RESOLVED. Kaushik Mcguire Sep 10, 2016 09:42
[2016-09-10 20:30] VITALS: BP 129/87; PULSE 72; RESP 18; TEMP 96; O2SAT 97
[2016-09-11 08:00] VITALS: BP 130/79; PULSE 67; RESP 20; TEMP 97.1; O2SAT 98
--- NOTE | 2016-09-11 08:39 | HHI.PR ---
Subjective Remarks Patient seen and examined today. Patient denies any new complaints. No change in clinical status. Objective Vitals Vital Signs Date Time Temp Pulse Resp B/P Pulse Ox O2 Delivery O2 Flow Rate FiO2 09/11/16 08:00 97.1 67 20 130/79 98 09/10/16 20:30 96.0 72 18 129/87 97 I/O 09/10/16 09/10/16 09/10/16 09/11/16 09/11/16 09/11/16 06:59 14:59 22:59 06:59 14:59 22:59 Intake Total 240 ml 840 ml Balance 240 ml 840 ml Intake Oral 240 ml 840 ml # Voids 2 2 1 1 # Bowel Movements 0 0 Objective Remarks GENERAL: Well-developed, well-nourished, in no acute distress. alert and orientated to person, month, year, place HEENT: Head is normocephalic without any lesions or masses noted. Facial features are symmetric. Eyes: Pupils equal round reactive to light. Extraocular muscles are intact. Conjunctivae were clear. NECK: Supple without any masses. Trachea midline no deviation. No JVD CARDIAC: Regular rhythm, regular rate. S1/S2 are heard. No murmurs gallops or rubs. LUNGS: Clear to auscultation bilaterally. No wheeze, rhonchi or rales. No use of accessory muscles on inspiration or expiration. ABDOMEN: Soft, nontender. Nondistended. Bowel sounds heard in all 4 quadrants. No organomegaly or masses. Negative rebound, negative guarding EXTREMITIES: No edema, pulses are equal bilaterally. No cyanosis or clubbing NEUROLOGY: Mood and affect appear appropriate. Cranial nerves II through XII grossly intact. Moving all extremities, speech is clear Procedures 02/14 with right frontal bur hole and left subclavian line placement 02/15 with right occipital craniectomy with SDH evacuation 02/20 tracheostomy and PEG placement 02/25 left frontal temporoparietal decompressive craniotomy 03/06 PICC 03/29 bone flap replacement Urinary Catheter: No Date of Insertion: Apr 10, 2016 Date of Removal: Apr 22, 2016 Vascular Central Line Catheter: No A/P Assessment and Plan S/P traumatic brain injury: Initial head CT with right occipital bone fracture along with intraparenchymal hemorrhage, bilateral subdural hematomas, and subarachnoid hemorrhages. Patient is status post right frontal bur hole, right occipital craniectomy with SDH evacuation, left frontal temporoparietal decompressive craniotomy, and subsequent bone flap replacement. Neurosurgery has signed off. Discharged from PT/speech therapy/occupational therapy as patient has reached maximum benefit Keppra bid for seizure prophylaxis Hypertension: Stable Blood pressure stable, Metoprolol 12.5 mg every 12 hours Protein Calorie malnutrition: Resolved Initially requiring PEG tube, however patient had been eating well and PEG was removed 05/25. Continue current diet Chronic neck pain Continue Tylenol and heat as needed DVT prophylaxis: Patient is ambulating well, low risk Discharge Planning Discharge planning per case management, daily patient has been accepted at the [facility]', however awaiting financials to be sorted out. 09/03/16 ULISES FROM [facility] HERE TO SEE PATIENT FOR PLACEMENT AND FEELS HE IS TOO HIGH FUNCTIONING FOR THEIR SNF. PATIENT HAS BEEN ACCEPTED TO THE [facility] WHEN FINANCIALS ARE RESOLVED. Kaushik Mcguire Sep 11, 2016 08:39
[2016-09-11] MEDS: SELENIUM SULFIDE 1% SHAMPOO 207 ML BOTTLE TOPICAL SCH (09:00)
[2016-09-11] MEDS: levETIRAcetam 500 MG TAB PO SCH ×2 (09:16→21:00)
[2016-09-11] MEDS: METOPROLOL TARTRATE 25 MG TAB PO SCH ×2 (09:16→21:00)
[2016-09-11 20:15] VITALS: BP 135/80; PULSE 67; RESP 20; TEMP 96.1; O2SAT 97
[2016-09-12 08:00] VITALS: BP 120/90; PULSE 61; RESP 18; TEMP 98.1; O2SAT 97
[2016-09-12] MEDS: SELENIUM SULFIDE 1% SHAMPOO 207 ML BOTTLE TOPICAL SCH (09:00)
[2016-09-12] MEDS: METOPROLOL TARTRATE 25 MG TAB PO SCH ×2 (09:29→20:42)
[2016-09-12] MEDS: levETIRAcetam 500 MG TAB PO SCH ×2 (09:29→20:41)
--- NOTE | 2016-09-12 09:37 | HHI.PR ---
Subjective Remarks Patient seen and examined today. Patient denies any new complaints. No change in clinical status. Objective Vitals Vital Signs Date Time Temp Pulse Resp B/P Pulse Ox O2 Delivery O2 Flow Rate FiO2 09/11/16 20:15 96.1 67 20 135/80 97 I/O 09/11/16 09/11/16 09/11/16 09/12/16 09/12/16 09/12/16 07:00 15:00 23:00 07:00 15:00 23:00 Intake Total 1480 ml 480 ml Balance 1480 ml 480 ml Intake Oral 1480 ml 480 ml # Voids 1 3 2 1 # Bowel Movements 1 Objective Remarks GENERAL: Well-developed, well-nourished, in no acute distress. alert and orientated to person, month, year, place HEENT: Head is normocephalic without any lesions or masses noted. Facial features are symmetric. Eyes: Pupils equal round reactive to light. Extraocular muscles are intact. Conjunctivae were clear. NECK: Supple without any masses. Trachea midline no deviation. No JVD CARDIAC: Regular rhythm, regular rate. S1/S2 are heard. No murmurs gallops or rubs. LUNGS: Clear to auscultation bilaterally. No wheeze, rhonchi or rales. No use of accessory muscles on inspiration or expiration. ABDOMEN: Soft, nontender. Nondistended. Bowel sounds heard in all 4 quadrants. No organomegaly or masses. Negative rebound, negative guarding EXTREMITIES: No edema, pulses are equal bilaterally. No cyanosis or clubbing NEUROLOGY: Mood and affect appear appropriate. Cranial nerves II through XII grossly intact. Moving all extremities, speech is clear Procedures 02/14 with right frontal bur hole and left subclavian line placement 02/15 with right occipital craniectomy with SDH evacuation 02/20 tracheostomy and PEG placement 02/25 left frontal temporoparietal decompressive craniotomy 03/06 PICC 03/29 bone flap replacement Urinary Catheter: No Date of Insertion: Apr 10, 2016 Date of Removal: Apr 22, 2016 Vascular Central Line Catheter: No A/P Assessment and Plan S/P traumatic brain injury: Initial head CT with right occipital bone fracture along with intraparenchymal hemorrhage, bilateral subdural hematomas, and subarachnoid hemorrhages. Patient is status post right frontal bur hole, right occipital craniectomy with SDH evacuation, left frontal temporoparietal decompressive craniotomy, and subsequent bone flap replacement. Neurosurgery has signed off. Discharged from PT/speech therapy/occupational therapy as patient has reached maximum benefit Keppra bid for seizure prophylaxis Hypertension: Stable Blood pressure stable, Metoprolol 12.5 mg every 12 hours Protein Calorie malnutrition: Resolved Initially requiring PEG tube, however patient had been eating well and PEG was removed 05/25. Continue current diet Chronic neck pain Continue Tylenol and heat as needed DVT prophylaxis: Patient is ambulating well, low risk Discharge Planning Discharge planning per case management, daily patient has been accepted at the [facility], however awaiting financials to be sorted out. 09/03/16 ULISES FROM [facility] HERE TO SEE PATIENT FOR PLACEMENT AND FEELS HE IS TOO HIGH FUNCTIONING FOR THEIR SNF. PATIENT HAS BEEN ACCEPTED TO THE [facility] WHEN FINANCIALS ARE RESOLVED. Kaushik Mcguire Sep 12, 2016 09:37
[2016-09-12 20:00] VITALS: BP 141/82; PULSE 77; RESP 20; TEMP 96.5; O2SAT 97
[2016-09-13 08:00] VITALS: BP 140/89; PULSE 64; RESP 18; TEMP 96.8; O2SAT 99
[2016-09-13] MEDS: levETIRAcetam 500 MG TAB PO SCH ×2 (08:20→20:46)
[2016-09-13] MEDS: METOPROLOL TARTRATE 25 MG TAB PO SCH ×2 (08:20→20:46)
[2016-09-13] MEDS: SELENIUM SULFIDE 1% SHAMPOO 207 ML BOTTLE TOPICAL SCH (08:21)
--- NOTE | 2016-09-13 14:26 | HHI.PR ---
Subjective Remarks Patient seen and examined today. Patient denies any new complaints. No change in clinical status. Objective Vitals Vital Signs Date Time Temp Pulse Resp B/P Pulse Ox O2 Delivery O2 Flow Rate FiO2 09/13/16 08:00 96.8 64 18 140/89 99 09/12/16 20:00 96.5 77 20 141/82 97 I/O 09/12/16 09/12/16 09/12/16 09/13/16 09/13/16 09/13/16 07:00 15:00 23:00 07:00 15:00 23:00 Intake Total 600 ml 480 ml 1290 ml Balance 600 ml 480 ml 1290 ml Intake Oral 600 ml 480 ml 1290 ml # Voids 1 4 1 Objective Remarks GENERAL: Well-developed, well-nourished, in no acute distress. alert and orientated to person, month, year, place HEENT: Head is normocephalic without any lesions or masses noted. Facial features are symmetric. Eyes: Pupils equal round reactive to light. Extraocular muscles are intact. Conjunctivae were clear. NECK: Supple without any masses. Trachea midline no deviation. No JVD CARDIAC: Regular rhythm, regular rate. S1/S2 are heard. No murmurs gallops or rubs. LUNGS: Clear to auscultation bilaterally. No wheeze, rhonchi or rales. No use of accessory muscles on inspiration or expiration. ABDOMEN: Soft, nontender. Nondistended. Bowel sounds heard in all 4 quadrants. No organomegaly or masses. Negative rebound, negative guarding EXTREMITIES: No edema, pulses are equal bilaterally. No cyanosis or clubbing NEUROLOGY: Mood and affect appear appropriate. Cranial nerves II through XII grossly intact. Moving all extremities, speech is clear Procedures 02/14 with right frontal bur hole and left subclavian line placement 02/15 with right occipital craniectomy with SDH evacuation 02/20 tracheostomy and PEG placement 02/25 left frontal temporoparietal decompressive craniotomy 03/06 PICC 03/29 bone flap replacement Urinary Catheter: No Date of Insertion: Apr 10, 2016 Date of Removal: Apr 22, 2016 Vascular Central Line Catheter: No A/P Assessment and Plan S/P traumatic brain injury: Initial head CT with right occipital bone fracture along with intraparenchymal hemorrhage, bilateral subdural hematomas, and subarachnoid hemorrhages. Patient is status post right frontal bur hole, right occipital craniectomy with SDH evacuation, left frontal temporoparietal decompressive craniotomy, and subsequent bone flap replacement. Neurosurgery has signed off. Discharged from PT/speech therapy/occupational therapy as patient has reached maximum benefit Keppra bid for seizure prophylaxis Hypertension: Stable Blood pressure stable, Metoprolol 12.5 mg every 12 hours Protein Calorie malnutrition: Resolved Initially requiring PEG tube, however patient had been eating well and PEG was removed 05/25. Continue current diet Chronic neck pain Continue Tylenol and heat as needed DVT prophylaxis: Patient is ambulating well, low risk Discharge Planning Discharge planning per case management, daily patient has been accepted at the [facility]', however awaiting financials to be sorted out. 09/03/16 ULISES FROM [facility] HERE TO SEE PATIENT FOR PLACEMENT AND FEELS HE IS TOO HIGH FUNCTIONING FOR THEIR SNF. PATIENT HAS BEEN ACCEPTED TO THE [facility] WHEN FINANCIALS ARE RESOLVED. Kaushik Mcguire Sep 13, 2016 14:26
[2016-09-13 20:00] VITALS: BP 136/84; PULSE 84; RESP 20; TEMP 96; O2SAT 98
[2016-09-14 08:00] VITALS: BP 117/81; PULSE 68; RESP 18; TEMP 96; O2SAT 97
[2016-09-14] MEDS: METOPROLOL TARTRATE 25 MG TAB PO SCH ×2 (08:32→20:56)
[2016-09-14] MEDS: SELENIUM SULFIDE 1% SHAMPOO 207 ML BOTTLE TOPICAL SCH (08:32)
[2016-09-14] MEDS: levETIRAcetam 500 MG TAB PO SCH ×2 (08:32→20:55)
--- NOTE | 2016-09-14 10:03 | HHI.PR ---
Subjective Remarks Patient seen and examined today. Patient states that he is having some sinus congestion today Objective Vitals Vital Signs Date Time Temp Pulse Resp B/P Pulse Ox O2 Delivery O2 Flow Rate FiO2 09/14/16 08:00 96.0 68 18 117/81 97 09/13/16 20:00 96.0 84 20 136/84 98 I/O 09/13/16 09/13/16 09/13/16 09/14/16 09/14/16 09/14/16 07:00 15:00 23:00 07:00 15:00 23:00 Intake Total 480 ml 1290 ml 480 ml 120 ml Balance 480 ml 1290 ml 480 ml 120 ml Intake Oral 480 ml 1290 ml 480 ml 120 ml # Voids 1 2 2 # Bowel Movements 0 Objective Remarks GENERAL: Well-developed, well-nourished, in no acute distress. alert and orientated to person, month, year, place HEENT: Head is normocephalic without any lesions or masses noted. Facial features are symmetric. Eyes: Pupils equal round reactive to light. Extraocular muscles are intact. Conjunctivae were clear. NECK: Supple without any masses. Trachea midline no deviation. No JVD CARDIAC: Regular rhythm, regular rate. S1/S2 are heard. No murmurs gallops or rubs. LUNGS: Clear to auscultation bilaterally. No wheeze, rhonchi or rales. No use of accessory muscles on inspiration or expiration. ABDOMEN: Soft, nontender. Nondistended. Bowel sounds heard in all 4 quadrants. No organomegaly or masses. Negative rebound, negative guarding EXTREMITIES: No edema, pulses are equal bilaterally. No cyanosis or clubbing NEUROLOGY: Mood and affect appear appropriate. Cranial nerves II through XII grossly intact. Moving all extremities, speech is clear Procedures 02/14 with right frontal bur hole and left subclavian line placement 02/15 with right occipital craniectomy with SDH evacuation 02/20 tracheostomy and PEG placement 02/25 left frontal temporoparietal decompressive craniotomy 03/06 PICC 03/29 bone flap replacement Date of Insertion: Apr 10, 2016 Date of Removal: Apr 22, 2016 A/P Assessment and Plan S/P traumatic brain injury: Initial head CT with right occipital bone fracture along with intraparenchymal hemorrhage, bilateral subdural hematomas, and subarachnoid hemorrhages. Patient is status post right frontal bur hole, right occipital craniectomy with SDH evacuation, left frontal temporoparietal decompressive craniotomy, and subsequent bone flap replacement. Neurosurgery has signed off. Discharged from PT/speech therapy/occupational therapy as patient has reached maximum benefit Keppra bid for seizure prophylaxis Sinus congestion Start saline nasal spray Hypertension: Stable Blood pressure stable, Metoprolol 12.5 mg every 12 hours Protein Calorie malnutrition: Resolved Initially requiring PEG tube, however patient had been eating well and PEG was removed 05/25. Continue current diet Chronic neck pain Continue Tylenol and heat as needed DVT prophylaxis: Patient is ambulating well, low risk Discharge Planning Discharge planning per case management, daily patient has been accepted at the [facility], however awaiting financials to be sorted out. 09/12/16 1500 SPOKE WITH LOUANN AT THE [facility] FOR UPDATE ON ACCEPTANCE. WAS INFORMED HE IS TRYING TO GET INTOUCH WITH [facility] TO FIND OUT IF HAS RESOLVED THE ISSUE WITH GETTING INCOME ACCESS AND KNOWLEDGE OF AMOUNT IN ACCOUNT. I CALLED HIM AND LEFT A MESSAGE FOR A RETURN CALL DAVID ORTIZ LPN/JAYLAN/Kaushik Alex Sep 14, 2016 10:03
[2016-09-14] MEDS: SODIUM CHLORIDE 0.65% NASAL SPRAY 45 ML BTL EACH NARE PRN ×2 (11:51→16:40)
[2016-09-14 20:00] VITALS: BP 128/81; PULSE 80; RESP 18; TEMP 97.5; O2SAT 95
[2016-09-15 08:00] VITALS: BP 115/92; PULSE 70; RESP 18; TEMP 96.6; O2SAT 98
[2016-09-15] MEDS: SELENIUM SULFIDE 1% SHAMPOO 207 ML BOTTLE TOPICAL SCH (08:32)
[2016-09-15] MEDS: METOPROLOL TARTRATE 25 MG TAB PO SCH ×2 (08:32→21:03)
[2016-09-15] MEDS: levETIRAcetam 500 MG TAB PO SCH ×2 (08:32→21:01)
--- NOTE | 2016-09-15 09:19 | HHI.PR ---
Subjective Remarks Patient seen and examined today. Patient denies any new complaints. No change in clinical status. Objective Vitals Vital Signs Date Time Temp Pulse Resp B/P Pulse Ox O2 Delivery O2 Flow Rate FiO2 09/15/16 08:00 96.6 70 18 115/92 98 09/14/16 20:00 97.5 80 18 128/81 95 I/O 09/14/16 09/14/16 09/14/16 09/15/16 09/15/16 09/15/16 07:00 15:00 23:00 07:00 15:00 23:00 Intake Total 120 ml 720 ml 240 ml Balance 120 ml 720 ml 240 ml Intake Oral 120 ml 720 ml 240 ml # Voids 2 2 2 1 # Bowel Movements 0 1 0 Objective Remarks GENERAL: Well-developed, well-nourished, in no acute distress. alert and orientated to person, month, year, place HEENT: Head is normocephalic without any lesions or masses noted. Facial features are symmetric. Eyes: Pupils equal round reactive to light. Extraocular muscles are intact. Conjunctivae were clear. NECK: Supple without any masses. Trachea midline no deviation. No JVD CARDIAC: Regular rhythm, regular rate. S1/S2 are heard. No murmurs gallops or rubs. LUNGS: Clear to auscultation bilaterally. No wheeze, rhonchi or rales. No use of accessory muscles on inspiration or expiration. ABDOMEN: Soft, nontender. Nondistended. Bowel sounds heard in all 4 quadrants. No organomegaly or masses. Negative rebound, negative guarding EXTREMITIES: No edema, pulses are equal bilaterally. No cyanosis or clubbing NEUROLOGY: Mood and affect appear appropriate. Cranial nerves II through XII grossly intact. Moving all extremities, speech is clear Procedures 02/14 with right frontal bur hole and left subclavian line placement 02/15 with right occipital craniectomy with SDH evacuation 02/20 tracheostomy and PEG placement 02/25 left frontal temporoparietal decompressive craniotomy 03/06 PICC 03/29 bone flap replacement Urinary Catheter: No Date of Insertion: Apr 10, 2016 Date of Removal: Apr 22, 2016 Vascular Central Line Catheter: No A/P Assessment and Plan S/P traumatic brain injury: Initial head CT with right occipital bone fracture along with intraparenchymal hemorrhage, bilateral subdural hematomas, and subarachnoid hemorrhages. Patient is status post right frontal bur hole, right occipital craniectomy with SDH evacuation, left frontal temporoparietal decompressive craniotomy, and subsequent bone flap replacement. Neurosurgery has signed off. Discharged from PT/speech therapy/occupational therapy as patient has reached maximum benefit Keppra bid for seizure prophylaxis Sinus congestion, improved Continue saline nasal spray Hypertension: Stable Blood pressure stable, Metoprolol 12.5 mg every 12 hours Protein Calorie malnutrition: Resolved Initially requiring PEG tube, however patient had been eating well and PEG was removed 05/25. Continue current diet Chronic neck pain Continue Tylenol and heat as needed DVT prophylaxis: Patient is ambulating well, low risk Discharge Planning Discharge planning per case management, daily patient has been accepted at the [facility], however awaiting financials to be sorted out. 09/12/16 Amy SPOKE WITH LOUANN AT THE [facility] FOR UPDATE ON ACCEPTANCE. WAS INFORMED HE IS TRYING TO GET INTOUCH WITH [facility] TO FIND OUT IF HAS RESOLVED THE ISSUE WITH GETTING INCOME ACCESS AND KNOWLEDGE OF AMOUNT IN ACCOUNT. I CALLED HIM AND LEFT A MESSAGE FOR A RETURN CALL DAVID ORTIZ LPN/JAYLAN/Kaushik Alex Sep 15, 2016 09:19
[2016-09-15 20:00] VITALS: BP 121/93; PULSE 74; RESP 20; TEMP 97.8; O2SAT 97
[2016-09-16 08:00] VITALS: BP 134/78; PULSE 66; RESP 18; TEMP 96.7; O2SAT 97
[2016-09-16] MEDS: levETIRAcetam 500 MG TAB PO SCH ×2 (08:44→21:41)
[2016-09-16] MEDS: METOPROLOL TARTRATE 25 MG TAB PO SCH ×2 (08:46→21:39)
[2016-09-16] MEDS: SELENIUM SULFIDE 1% SHAMPOO 207 ML BOTTLE TOPICAL SCH (08:47)
--- NOTE | 2016-09-16 14:38 | HHI.PR ---
Subjective Remarks Patient seen and examined today with Dr. Adams, patient denies any new complaints. No change in clinical status Objective Vitals Vital Signs Date Time Temp Pulse Resp B/P Pulse Ox O2 Delivery O2 Flow Rate FiO2 09/16/16 08:00 96.7 66 18 134/78 97 09/15/16 20:00 97.8 74 20 121/93 97 I/O 09/15/16 09/15/16 09/15/16 09/16/16 09/16/16 09/16/16 06:59 14:59 22:59 06:59 14:59 22:59 Intake Total 1290 ml 480 ml 240 ml Balance 1290 ml 480 ml 240 ml Intake Oral 1290 ml 480 ml 240 ml # Voids 1 3 2 1 5 # Bowel Movements 1 0 Objective Remarks GENERAL: Well-developed, well-nourished, in no acute distress. alert and orientated to person, month, year, place HEENT: Head is normocephalic without any lesions or masses noted. Facial features are symmetric. Eyes: Pupils equal round reactive to light. Extraocular muscles are intact. Conjunctivae were clear. NECK: Supple without any masses. Trachea midline no deviation. No JVD CARDIAC: Regular rhythm, regular rate. S1/S2 are heard. No murmurs gallops or rubs. LUNGS: Clear to auscultation bilaterally. No wheeze, rhonchi or rales. No use of accessory muscles on inspiration or expiration. ABDOMEN: Soft, nontender. Nondistended. Bowel sounds heard in all 4 quadrants. No organomegaly or masses. Negative rebound, negative guarding EXTREMITIES: No edema, pulses are equal bilaterally. No cyanosis or clubbing NEUROLOGY: Mood and affect appear appropriate. Cranial nerves II through XII grossly intact. Moving all extremities, speech is clear Procedures 02/14 with right frontal bur hole and left subclavian line placement 02/15 with right occipital craniectomy with SDH evacuation 02/20 tracheostomy and PEG placement 02/25 left frontal temporoparietal decompressive craniotomy 03/06 PICC 03/29 bone flap replacement Urinary Catheter: No Date of Insertion: Apr 10, 2016 Date of Removal: Apr 22, 2016 Vascular Central Line Catheter: No A/P Assessment and Plan S/P traumatic brain injury: Initial head CT with right occipital bone fracture along with intraparenchymal hemorrhage, bilateral subdural hematomas, and subarachnoid hemorrhages. Patient is status post right frontal bur hole, right occipital craniectomy with SDH evacuation, left frontal temporoparietal decompressive craniotomy, and subsequent bone flap replacement. Neurosurgery has signed off. Discharged from PT/speech therapy/occupational therapy as patient has reached maximum benefit Keppra bid for seizure prophylaxis Sinus congestion, improved Continue saline nasal spray Hypertension: Stable Blood pressure stable, Metoprolol 12.5 mg every 12 hours Protein Calorie malnutrition: Resolved Initially requiring PEG tube, however patient had been eating well and PEG was removed 05/25. Continue current diet Chronic neck pain Continue Tylenol and heat as needed DVT prophylaxis: Patient is ambulating well, low risk Discharge Planning Discharge planning per case management, daily patient has been accepted at the [facility], however awaiting financials to be sorted out. 09/12/16 1500 SPOKE WITH LOUANN AT THE [facility] FOR UPDATE ON ACCEPTANCE. WAS INFORMED HE IS TRYING TO GET INTOUCH WITH [facility] TO FIND OUT IF HAS RESOLVED THE ISSUE WITH GETTING INCOME ACCESS AND KNOWLEDGE OF AMOUNT IN ACCOUNT. I CALLED HIM AND LEFT A MESSAGE FOR A RETURN CALL DAVID ORTIZ LPN/JAYLAN/Kaushik Alex Sep 16, 2016 14:38
[2016-09-16 20:43] VITALS: BP 138/90; PULSE 73; RESP 20; TEMP 97.8; O2SAT 97
[2016-09-17 08:00] VITALS: BP 140/78; PULSE 57; RESP 18; TEMP 98.5; O2SAT 96
[2016-09-17] MEDS: SELENIUM SULFIDE 1% SHAMPOO 207 ML BOTTLE TOPICAL SCH (09:00)
[2016-09-17] MEDS: METOPROLOL TARTRATE 25 MG TAB PO SCH ×2 (09:07→21:37)
[2016-09-17] MEDS: levETIRAcetam 500 MG TAB PO SCH ×2 (09:07→21:37)
--- NOTE | 2016-09-17 10:33 | HHI.PR ---
Subjective Remarks Patient states he still has a cold but then states he only has nasal congestion in the morning. He denies any fevers or cough. Objective Vitals Vital Signs Date Time Temp Pulse Resp B/P Pulse Ox O2 Delivery O2 Flow Rate FiO2 09/17/16 08:00 98.5 57 18 140/78 96 09/16/16 20:43 97.8 73 20 138/90 97 I/O 09/16/16 09/16/16 09/16/16 09/17/16 09/17/16 09/17/16 07:00 15:00 23:00 07:00 15:00 23:00 Intake Total 960 ml 240 ml Balance 960 ml 240 ml Intake Oral 960 ml 240 ml # Voids 1 7 2 # Bowel Movements 0 Objective Remarks GENERAL: Well-nourished, well-developed patient in no apparent distress. SKIN: Warm and dry. CARDIOVASCULAR: Regular rate and rhythm. RESPIRATORY: No accessory muscle use. CTAB. GASTROINTESTINAL: Normoactive bowel sounds. Abdomen soft, nontender, nondistended. NEUROLOGICAL: Awake and alert. Motor grossly within normal limits. Normal speech. PSYCHIATRIC: Appropriate mood and affect. Procedures 02/14 with right frontal bur hole and left subclavian line placement 02/15 with right occipital craniectomy with SDH evacuation 02/20 tracheostomy and PEG placement 02/25 left frontal temporoparietal decompressive craniotomy 03/06 PICC 03/29 bone flap replacement Urinary Catheter: No Date of Insertion: Apr 10, 2016 Date of Removal: Apr 22, 2016 Vascular Central Line Catheter: No A/P Problem List: (1) Traumatic brain injury ICD Code: S06.9X9A Status: Acute (2) HTN (hypertension) ICD Code: I10 Status: Chronic (3) Insomnia ICD Code: G47.00 Status: Acute (4) Urinary retention ICD Code: R33.9 Status: Resolved (5) Protein calorie malnutrition ICD Code: E46 Status: Acute (6) Cervical muscle strain ICD Code: S16.1XXA Status: Acute (7) Bilateral impacted cerumen ICD Code: H61.23 Status: Resolved Assessment and Plan S/P traumatic brain injury: Initial head CT with right occipital bone fracture along with intraparenchymal hemorrhage, bilateral subdural hematomas, and subarachnoid hemorrhages. Patient is status post right frontal bur hole, right occipital craniectomy with SDH evacuation, left frontal temporoparietal decompressive craniotomy, and subsequent bone flap replacement. Neurosurgery has signed off. Discharged from PT/speech therapy/occupational therapy as patient has reached maximum benefit Keppra bid for seizure prophylaxis Hypertension: Intermittent Metoprolol 12.5 mg every 12 hours Monitor BP Protein Calorie malnutrition: Resolved Initially requiring PEG tube, however patient had been eating well and PEG was removed 05/25. Continue current diet Cerumen impaction: Resolved. -S/p Debrox treatment and repeat R ear irrigation. Hearing now improved. Chronic neck pain Continue Tylenol and heat as needed DVT prophylaxis: Patient is ambulating well, low risk Discharge Planning Patient has been accepted to [place] when financial situation is resolved regarding early assisted benefits. Healthcare surrogate is assisting with this. Problem Qualifiers (1) HTN (hypertension): Qualified Code: I10 - Essential hypertension Christina Hoff Sep 17, 2016 10:33
[2016-09-17 20:00] VITALS: BP 132/88; PULSE 64; RESP 20; TEMP 97.9; O2SAT 98
[2016-09-18 07:43] VITALS: BP 133/85; PULSE 60; RESP 18; TEMP 97.7; O2SAT 98
[2016-09-18] MEDS: levETIRAcetam 500 MG TAB PO SCH ×2 (08:20→20:14)
[2016-09-18] MEDS: METOPROLOL TARTRATE 25 MG TAB PO SCH ×2 (08:20→20:14)
[2016-09-18] MEDS: SELENIUM SULFIDE 1% SHAMPOO 207 ML BOTTLE TOPICAL SCH (08:21)
[2016-09-18 08:52] VITALS: BP_SYST 124; BP_SYST 133; BP_DIAS 81; BP_DIAS 85; PULSE 60; RESP 18; TEMP 97.7; O2SAT 98
--- NOTE | 2016-09-18 11:50 | HHI.PR ---
Subjective Remarks No acute complaints. No change in clinical status. Objective Vitals Vital Signs Date Time Temp Pulse Resp B/P Pulse Ox O2 Delivery O2 Flow Rate FiO2 09/18/16 08:52 97.7 60 18 133/85 98 09/18/16 07:43 97.7 60 18 133/85 98 09/17/16 20:00 97.9 64 20 132/88 98 I/O 09/17/16 09/17/16 09/17/16 09/18/16 09/18/16 09/18/16 06:59 14:59 22:59 06:59 14:59 22:59 Intake Total 240 ml 1200 ml 600 ml 120 ml Balance 240 ml 1200 ml 600 ml 120 ml Intake Oral 240 ml 1200 ml 600 ml 120 ml # Voids 2 2 1 # Bowel Movements 0 0 0 Objective Remarks GENERAL: Well-nourished, well-developed patient in no apparent distress. CARDIOVASCULAR: Regular rate and rhythm. RESPIRATORY: No accessory muscle use. CTAB. GASTROINTESTINAL: Normoactive bowel sounds. Abdomen soft, nontender, nondistended. NEUROLOGICAL: Awake and alert. Motor grossly within normal limits. Normal speech. PSYCHIATRIC: Appropriate mood and affect. Procedures 02/14 with right frontal bur hole and left subclavian line placement 02/15 with right occipital craniectomy with SDH evacuation 02/20 tracheostomy and PEG placement 02/25 left frontal temporoparietal decompressive craniotomy 03/06 PICC 03/29 bone flap replacement Urinary Catheter: No Date of Insertion: Apr 10, 2016 Date of Removal: Apr 22, 2016 Vascular Central Line Catheter: No A/P Problem List: (1) Traumatic brain injury ICD Code: S06.9X9A Status: Acute (2) HTN (hypertension) ICD Code: I10 Status: Chronic (3) Insomnia ICD Code: G47.00 Status: Acute (4) Urinary retention ICD Code: R33.9 Status: Resolved (5) Protein calorie malnutrition ICD Code: E46 Status: Acute (6) Cervical muscle strain ICD Code: S16.1XXA Status: Acute (7) Bilateral impacted cerumen ICD Code: H61.23 Status: Resolved Assessment and Plan S/P traumatic brain injury: Initial head CT with right occipital bone fracture along with intraparenchymal hemorrhage, bilateral subdural hematomas, and subarachnoid hemorrhages. Patient is status post right frontal bur hole, right occipital craniectomy with SDH evacuation, left frontal temporoparietal decompressive craniotomy, and subsequent bone flap replacement. Neurosurgery has signed off. Discharged from PT/speech therapy/occupational therapy as patient has reached maximum benefit Keppra bid for seizure prophylaxis Hypertension: Stable Metoprolol 12.5 mg every 12 hours Monitor BP Protein Calorie malnutrition: Resolved Initially requiring PEG tube, however patient had been eating well and PEG was removed 05/25. Continue current diet Cerumen impaction: Resolved. -S/p Debrox treatment and repeat R ear irrigation. Hearing now improved. Chronic neck pain Continue Tylenol and heat as needed DVT prophylaxis: Patient is ambulating well, low risk Discharge Planning Patient has been accepted to [place] when financial situation is resolved regarding early [facility] benefits. Healthcare surrogate is assisting with this. Problem Qualifiers (1) HTN (hypertension): Qualified Code: I10 - Essential hypertension Christina Hoff Sep 18, 2016 11:50
[2016-09-18 20:00] VITALS: BP 117/74; PULSE 65; RESP 18; TEMP 97.1; O2SAT 97
[2016-09-19 08:00] VITALS: BP 129/83; PULSE 75; RESP 20; TEMP 96.2; O2SAT 96
[2016-09-19] MEDS: SELENIUM SULFIDE 1% SHAMPOO 207 ML BOTTLE TOPICAL SCH (08:07)
[2016-09-19] MEDS: levETIRAcetam 500 MG TAB PO SCH ×2 (08:07→19:54)
[2016-09-19] MEDS: METOPROLOL TARTRATE 25 MG TAB PO SCH ×2 (08:07→19:54)
--- NOTE | 2016-09-19 11:17 | HHI.PR ---
Subjective Remarks Patient admits to some nasal congestion and cough in the morning. Denies any fevers. Objective Vitals Vital Signs Date Time Temp Pulse Resp B/P Pulse Ox O2 Delivery O2 Flow Rate FiO2 09/19/16 08:00 96.2 75 20 129/83 96 09/18/16 20:00 97.1 65 18 117/74 97 I/O 09/18/16 09/18/16 09/18/16 09/19/16 09/19/16 09/19/16 06:59 14:59 22:59 06:59 14:59 22:59 Intake Total 120 ml 720 ml 0 ml Balance 120 ml 720 ml 0 ml Intake Oral 120 ml 720 ml IV Total 0 ml 0 ml # Voids 1 2 # Bowel Movements 0 Objective Remarks GENERAL: Well-nourished, well-developed patient in no apparent distress. CARDIOVASCULAR: Regular rate and rhythm. RESPIRATORY: No accessory muscle use. CTAB. GASTROINTESTINAL: Abdomen nontender, nondistended. NEUROLOGICAL: Awake and alert. Motor grossly within normal limits. Normal speech. PSYCHIATRIC: Appropriate mood and affect. Procedures 02/14 with right frontal bur hole and left subclavian line placement 02/15 with right occipital craniectomy with SDH evacuation 02/20 tracheostomy and PEG placement 02/25 left frontal temporoparietal decompressive craniotomy 03/06 PICC 03/29 bone flap replacement Urinary Catheter: No Date of Insertion: Apr 10, 2016 Date of Removal: Apr 22, 2016 Vascular Central Line Catheter: No A/P Problem List: (1) Traumatic brain injury ICD Code: S06.9X9A Status: Acute (2) HTN (hypertension) ICD Code: I10 Status: Chronic (3) Insomnia ICD Code: G47.00 Status: Acute (4) Urinary retention ICD Code: R33.9 Status: Resolved (5) Protein calorie malnutrition ICD Code: E46 Status: Acute (6) Cervical muscle strain ICD Code: S16.1XXA Status: Acute (7) Bilateral impacted cerumen ICD Code: H61.23 Status: Resolved Assessment and Plan S/P traumatic brain injury: Initial head CT with right occipital bone fracture along with intraparenchymal hemorrhage, bilateral subdural hematomas, and subarachnoid hemorrhages. Patient is status post right frontal bur hole, right occipital craniectomy with SDH evacuation, left frontal temporoparietal decompressive craniotomy, and subsequent bone flap replacement. Neurosurgery has signed off. Discharged from PT/speech therapy/occupational therapy as patient has reached maximum benefit Keppra bid for seizure prophylaxis Hypertension: Stable Metoprolol 12.5 mg every 12 hours Monitor BP Protein Calorie malnutrition: Resolved Initially requiring PEG tube, however patient had been eating well and PEG was removed 05/25. Continue current diet Cerumen impaction: Resolved. -S/p Debrox treatment and repeat R ear irrigation. Hearing now improved. Chronic neck pain Continue Tylenol and heat as needed DVT prophylaxis: Patient is ambulating well, low risk Discharge Planning Patient has been accepted to [place] when financial situation is resolved regarding early [facility] benefits. Healthcare surrogate is assisting with this. Problem Qualifiers (1) HTN (hypertension): Qualified Code: I10 - Essential hypertension Christina Hoff Sep 19, 2016 11:17
[2016-09-19 20:00] VITALS: BP 125/81; PULSE 71; RESP 16; TEMP 98.6; O2SAT 96
[2016-09-20 07:56] VITALS: BP 122/78; PULSE 61; RESP 18; TEMP 98; O2SAT 99
[2016-09-20 08:00] VITALS: BP 122/78; PULSE 61; RESP 18; TEMP 98; O2SAT 99
[2016-09-20] MEDS: METOPROLOL TARTRATE 25 MG TAB PO SCH ×2 (08:41→21:41)
[2016-09-20] MEDS: levETIRAcetam 500 MG TAB PO SCH ×2 (08:41→21:41)
[2016-09-20] MEDS: SELENIUM SULFIDE 1% SHAMPOO 207 ML BOTTLE TOPICAL SCH (08:44)
--- NOTE | 2016-09-20 18:08 | HHI.PR ---
Subjective Remarks No acute complaints. No change in clinical status. Objective Vitals Vital Signs Date Time Temp Pulse Resp B/P Pulse Ox O2 Delivery O2 Flow Rate FiO2 09/20/16 08:00 98.0 61 18 122/78 99 09/20/16 07:56 98.0 61 18 122/78 99 09/19/16 20:00 98.6 71 16 125/81 96 I/O 09/19/16 09/19/16 09/19/16 09/20/16 09/20/16 09/20/16 07:00 15:00 23:00 07:00 15:00 23:00 Intake Total 0 ml 1650 ml 440 ml 240 ml 960 ml Balance 0 ml 1650 ml 440 ml 240 ml 960 ml Intake Oral 1650 ml 440 ml 240 ml 960 ml IV Total 0 ml # Voids 2 2 3 1 3 # Bowel Movements 1 0 0 0 Objective Remarks GENERAL: Well-nourished, well-developed patient in no apparent distress. CARDIOVASCULAR: Regular rate and rhythm. RESPIRATORY: No accessory muscle use. CTAB. GASTROINTESTINAL: Abdomen soft, nontender, nondistended. NEUROLOGICAL: Awake and alert. Motor grossly within normal limits. Normal speech. PSYCHIATRIC: Appropriate mood and affect. Procedures 02/14 with right frontal bur hole and left subclavian line placement 02/15 with right occipital craniectomy with SDH evacuation 02/20 tracheostomy and PEG placement 02/25 left frontal temporoparietal decompressive craniotomy 03/06 PICC 03/29 bone flap replacement Urinary Catheter: No Date of Insertion: Apr 10, 2016 Date of Removal: Apr 22, 2016 Vascular Central Line Catheter: No A/P Problem List: (1) Traumatic brain injury ICD Code: S06.9X9A Status: Acute (2) HTN (hypertension) ICD Code: I10 Status: Chronic (3) Insomnia ICD Code: G47.00 Status: Acute (4) Urinary retention ICD Code: R33.9 Status: Resolved (5) Protein calorie malnutrition ICD Code: E46 Status: Acute (6) Cervical muscle strain ICD Code: S16.1XXA Status: Acute (7) Bilateral impacted cerumen ICD Code: H61.23 Status: Resolved Assessment and Plan S/P traumatic brain injury: Initial head CT with right occipital bone fracture along with intraparenchymal hemorrhage, bilateral subdural hematomas, and subarachnoid hemorrhages. Patient is status post right frontal bur hole, right occipital craniectomy with SDH evacuation, left frontal temporoparietal decompressive craniotomy, and subsequent bone flap replacement. Neurosurgery has signed off. Discharged from PT/speech therapy/occupational therapy as patient has reached maximum benefit Keppra bid for seizure prophylaxis Hypertension: Stable Metoprolol 12.5 mg every 12 hours Monitor BP Protein Calorie malnutrition: Resolved Initially requiring PEG tube, however patient had been eating well and PEG was removed 05/25. Continue current diet Cerumen impaction: Resolved. -S/p Debrox treatment and repeat R ear irrigation. Hearing now improved. Chronic neck pain Continue Tylenol and heat as needed DVT prophylaxis: Patient is ambulating well, low risk Discharge Planning Patient has been accepted to [place] when financial situation is resolved regarding early [facility] benefits. Healthcare surrogate is assisting with this. Problem Qualifiers (1) HTN (hypertension): Qualified Code: I10 - Essential hypertension Christina Hoff Sep 20, 2016 18:08
[2016-09-20 20:01] VITALS: BP 121/89; PULSE 71; RESP 20; TEMP 96.2; O2SAT 98
[2016-09-21 08:00] VITALS: BP 129/94; PULSE 60; RESP 18; TEMP 97.5; O2SAT 97
[2016-09-21] MEDS: METOPROLOL TARTRATE 25 MG TAB PO SCH ×2 (08:27→21:41)
[2016-09-21] MEDS: levETIRAcetam 500 MG TAB PO SCH ×2 (08:27→21:41)
[2016-09-21] MEDS: SELENIUM SULFIDE 1% SHAMPOO 207 ML BOTTLE TOPICAL SCH (08:27)
--- NOTE | 2016-09-21 16:11 | HHI.PR ---
Subjective Remarks Patient states he is sore from the bed. No other acute complaints. Objective Vitals Vital Signs Date Time Temp Pulse Resp B/P Pulse Ox O2 Delivery O2 Flow Rate FiO2 09/21/16 08:00 97.5 60 18 129/94 97 09/20/16 20:01 96.2 71 20 121/89 98 I/O 09/20/16 09/20/16 09/20/16 09/21/16 09/21/16 09/21/16 07:00 15:00 23:00 07:00 15:00 23:00 Intake Total 240 ml 960 ml 360 ml Balance 240 ml 960 ml 360 ml Intake Oral 240 ml 960 ml 360 ml # Voids 1 3 1 3 1 # Bowel Movements 0 0 Objective Remarks GENERAL: Well-nourished, well-developed patient in no apparent distress. CARDIOVASCULAR: Regular rate and rhythm. RESPIRATORY: No accessory muscle use. CTAB. GASTROINTESTINAL: Abdomen soft, nontender, nondistended. NEUROLOGICAL: Awake and alert. Motor grossly within normal limits. Normal speech. PSYCHIATRIC: Appropriate mood and affect. Procedures 02/14 with right frontal bur hole and left subclavian line placement 02/15 with right occipital craniectomy with SDH evacuation 02/20 tracheostomy and PEG placement 02/25 left frontal temporoparietal decompressive craniotomy 03/06 PICC 03/29 bone flap replacement Urinary Catheter: No Date of Insertion: Apr 10, 2016 Date of Removal: Apr 22, 2016 Vascular Central Line Catheter: No A/P Problem List: (1) Traumatic brain injury ICD Code: S06.9X9A Status: Acute (2) HTN (hypertension) ICD Code: I10 Status: Chronic (3) Insomnia ICD Code: G47.00 Status: Acute (4) Urinary retention ICD Code: R33.9 Status: Resolved (5) Protein calorie malnutrition ICD Code: E46 Status: Acute (6) Cervical muscle strain ICD Code: S16.1XXA Status: Acute (7) Bilateral impacted cerumen ICD Code: H61.23 Status: Resolved Assessment and Plan S/P traumatic brain injury: Initial head CT with right occipital bone fracture along with intraparenchymal hemorrhage, bilateral subdural hematomas, and subarachnoid hemorrhages. Patient is status post right frontal bur hole, right occipital craniectomy with SDH evacuation, left frontal temporoparietal decompressive craniotomy, and subsequent bone flap replacement. Neurosurgery has signed off. Discharged from PT/speech therapy/occupational therapy as patient has reached maximum benefit Keppra bid for seizure prophylaxis Hypertension: Stable Metoprolol 12.5 mg every 12 hours Monitor BP Protein Calorie malnutrition: Resolved Initially requiring PEG tube, however patient had been eating well and PEG was removed 05/25. Continue current diet Cerumen impaction: Resolved. -S/p Debrox treatment and repeat R ear irrigation. Hearing now improved. Chronic neck pain Continue Tylenol and heat as needed DVT prophylaxis: Patient is ambulating well, low risk Discharge Planning Patient has been accepted to [place] when financial situation is resolved regarding early [facility] benefits. Healthcare surrogate is assisting with this. Problem Qualifiers (1) HTN (hypertension): Qualified Code: I10 - Essential hypertension Christina Hoff Sep 21, 2016 16:11
[2016-09-21 20:00] VITALS: BP 133/94; PULSE 70; RESP 18; TEMP 97.4; O2SAT 97
[2016-09-22 08:00] VITALS: BP 124/88; PULSE 84; RESP 18; TEMP 98.2; O2SAT 97
[2016-09-22] MEDS: SELENIUM SULFIDE 1% SHAMPOO 207 ML BOTTLE TOPICAL SCH (09:15)
[2016-09-22] MEDS: METOPROLOL TARTRATE 25 MG TAB PO SCH ×2 (09:15→21:11)
[2016-09-22] MEDS: levETIRAcetam 500 MG TAB PO SCH ×2 (09:15→21:11)
--- NOTE | 2016-09-22 11:21 | HHI.PR ---
Subjective Remarks No acute complaints. No change in clinical status. Objective Vitals Vital Signs Date Time Temp Pulse Resp B/P Pulse Ox O2 Delivery O2 Flow Rate FiO2 09/22/16 08:00 98.2 84 18 124/88 97 09/21/16 20:00 97.4 70 18 133/94 97 I/O 09/21/16 09/21/16 09/21/16 09/22/16 09/22/16 09/22/16 07:00 15:00 23:00 07:00 15:00 23:00 Intake Total 360 ml 720 ml Balance 360 ml 720 ml Intake Oral 360 ml 720 ml # Voids 3 1 3 # Bowel Movements 1 Objective Remarks GENERAL: Well-nourished, well-developed patient in no apparent distress. CARDIOVASCULAR: Regular rate and rhythm. RESPIRATORY: No accessory muscle use. CTAB. GASTROINTESTINAL: Normoactive bowel sounds. Abdomen soft, nontender, nondistended. NEUROLOGICAL: Awake and alert. Motor grossly within normal limits. Normal speech. PSYCHIATRIC: Appropriate mood and affect. Procedures 02/14 with right frontal bur hole and left subclavian line placement 02/15 with right occipital craniectomy with SDH evacuation 02/20 tracheostomy and PEG placement 02/25 left frontal temporoparietal decompressive craniotomy 03/06 PICC 03/29 bone flap replacement Urinary Catheter: No Date of Insertion: Apr 10, 2016 Date of Removal: Apr 22, 2016 Vascular Central Line Catheter: No A/P Problem List: (1) Traumatic brain injury ICD Code: S06.9X9A Status: Acute (2) HTN (hypertension) ICD Code: I10 Status: Chronic (3) Insomnia ICD Code: G47.00 Status: Acute (4) Urinary retention ICD Code: R33.9 Status: Resolved (5) Protein calorie malnutrition ICD Code: E46 Status: Acute (6) Cervical muscle strain ICD Code: S16.1XXA Status: Acute (7) Bilateral impacted cerumen ICD Code: H61.23 Status: Resolved Assessment and Plan S/P traumatic brain injury: Initial head CT with right occipital bone fracture along with intraparenchymal hemorrhage, bilateral subdural hematomas, and subarachnoid hemorrhages. Patient is status post right frontal bur hole, right occipital craniectomy with SDH evacuation, left frontal temporoparietal decompressive craniotomy, and subsequent bone flap replacement. Neurosurgery has signed off. Discharged from PT/speech therapy/occupational therapy as patient has reached maximum benefit Keppra bid for seizure prophylaxis Hypertension: Stable Metoprolol 12.5 mg every 12 hours Monitor BP Protein Calorie malnutrition: Resolved Initially requiring PEG tube, however patient had been eating well and PEG was removed 05/25. Continue current diet Cerumen impaction: Resolved. -S/p Debrox treatment and repeat R ear irrigation. Hearing now improved. Chronic neck pain Continue Tylenol and heat as needed DVT prophylaxis: Patient is ambulating well, low risk Discharge Planning Patient has been accepted to [facility] when financial situation is resolved regarding early [facility] benefits. Healthcare surrogate is assisting with this. Problem Qualifiers (1) HTN (hypertension): Qualified Code: I10 - Essential hypertension Christina Hoff Sep 22, 2016 11:21
[2016-09-22 20:00] VITALS: BP 139/69; PULSE 64; RESP 20; TEMP 96.8; O2SAT 97
[2016-09-23 08:00] VITALS: BP 117/76; PULSE 56; RESP 18; TEMP 97.9; O2SAT 97
--- NOTE | 2016-09-23 08:38 | HHI.PR ---
Subjective Remarks No acute complaints. No change in clinical status. Objective Vitals Vital Signs Date Time Temp Pulse Resp B/P Pulse Ox O2 Delivery O2 Flow Rate FiO2 09/23/16 08:00 97.9 56 18 117/76 97 09/22/16 20:00 96.8 64 20 139/69 97 I/O 09/22/16 09/22/16 09/22/16 09/23/16 09/23/16 09/23/16 06:59 14:59 22:59 06:59 14:59 22:59 Intake Total 600 ml Output Total 4 ml Balance 596 ml Intake Oral 600 ml Output Urine Total 4 ml # Voids 2 1 # Bowel Movements 0 Objective Remarks GENERAL: Well-nourished, well-developed patient in no apparent distress. CARDIOVASCULAR: Regular rate and rhythm. RESPIRATORY: No accessory muscle use. CTAB. GASTROINTESTINAL: Abdomen soft, nontender, nondistended. NEUROLOGICAL: Awake and alert. Motor grossly within normal limits. Normal speech. PSYCHIATRIC: Appropriate mood and affect. Procedures 02/14 with right frontal bur hole and left subclavian line placement 02/15 with right occipital craniectomy with SDH evacuation 02/20 tracheostomy and PEG placement 02/25 left frontal temporoparietal decompressive craniotomy 03/06 PICC 03/29 bone flap replacement Urinary Catheter: No Date of Insertion: Apr 10, 2016 Date of Removal: Apr 22, 2016 Vascular Central Line Catheter: No A/P Problem List: (1) Traumatic brain injury ICD Code: S06.9X9A Status: Acute (2) HTN (hypertension) ICD Code: I10 Status: Chronic (3) Insomnia ICD Code: G47.00 Status: Acute (4) Urinary retention ICD Code: R33.9 Status: Resolved (5) Protein calorie malnutrition ICD Code: E46 Status: Acute (6) Cervical muscle strain ICD Code: S16.1XXA Status: Acute (7) Bilateral impacted cerumen ICD Code: H61.23 Status: Resolved Assessment and Plan S/P traumatic brain injury: Initial head CT with right occipital bone fracture along with intraparenchymal hemorrhage, bilateral subdural hematomas, and subarachnoid hemorrhages. Patient is status post right frontal bur hole, right occipital craniectomy with SDH evacuation, left frontal temporoparietal decompressive craniotomy, and subsequent bone flap replacement. Neurosurgery has signed off. Discharged from PT/speech therapy/occupational therapy as patient has reached maximum benefit Keppra bid for seizure prophylaxis Hypertension: Stable Metoprolol 12.5 mg every 12 hours Monitor BP Protein Calorie malnutrition: Resolved Initially requiring PEG tube, however patient had been eating well and PEG was removed 05/25. Continue current diet Cerumen impaction: Resolved. -S/p Debrox treatment and repeat R ear irrigation. Hearing now improved. Chronic neck pain Continue Tylenol and heat as needed DVT prophylaxis: Patient is ambulating well, low risk Discharge Planning Patient has been accepted to [facility] when financial situation is resolved regarding early detention benefits. Healthcare surrogate is assisting with this. Problem Qualifiers (1) HTN (hypertension): Qualified Code: I10 - Essential hypertension Christina Hoff Sep 23, 2016 08:38
[2016-09-23] MEDS: SELENIUM SULFIDE 1% SHAMPOO 207 ML BOTTLE TOPICAL SCH (09:00)
[2016-09-23] MEDS: METOPROLOL TARTRATE 25 MG TAB PO SCH ×2 (09:00→21:00)
[2016-09-23] MEDS: levETIRAcetam 500 MG TAB PO SCH ×2 (09:30→21:25)
[2016-09-23 09:33] VITALS: PULSE 64
[2016-09-23 20:00] VITALS: BP 116/89; PULSE 79; RESP 18; TEMP 96.8; O2SAT 97
[2016-09-24 07:53] VITALS: BP 126/88; PULSE 64; RESP 18; TEMP 97.9; O2SAT 99
--- NOTE | 2016-09-24 08:11 | HHI.PR ---
Subjective Remarks Patient seen and examined today. Patient denies any new complaints. No change in clinical status. Objective Vitals Vital Signs Date Time Temp Pulse Resp B/P Pulse Ox O2 Delivery O2 Flow Rate FiO2 09/24/16 07:53 97.9 64 18 126/88 99 09/23/16 20:00 96.8 79 18 116/89 97 09/23/16 09:33 64 I/O 09/23/16 09/23/16 09/23/16 09/24/16 09/24/16 09/24/16 07:00 15:00 23:00 07:00 15:00 23:00 Intake Total 600 ml Balance 600 ml Intake Oral 600 ml # Voids 1 2 1 1 # Bowel Movements 0 Objective Remarks GENERAL: Well-developed, well-nourished, in no acute distress. alert and orientated to person, month, year, place HEENT: Head is normocephalic without any lesions or masses noted. Facial features are symmetric. Eyes: Extraocular muscles are intact. Conjunctivae were clear. NECK: Supple without any masses. Trachea midline no deviation. CARDIAC: Regular rhythm, regular rate. S1/S2 are heard. No murmurs gallops or rubs. LUNGS: Clear to auscultation bilaterally. No wheeze, rhonchi or rales. No use of accessory muscles on inspiration or expiration. ABDOMEN: Soft, nontender. Nondistended. Bowel sounds heard in all 4 quadrants. No organomegaly or masses. Negative rebound, negative guarding EXTREMITIES: No edema, pulses are equal bilaterally. No cyanosis or clubbing NEUROLOGY: Mood and affect appear appropriate. Cranial nerves II through XII grossly intact. Moving all extremities, speech is clear Procedures 02/14 with right frontal bur hole and left subclavian line placement 02/15 with right occipital craniectomy with SDH evacuation 02/20 tracheostomy and PEG placement 02/25 left frontal temporoparietal decompressive craniotomy 03/06 PICC 03/29 bone flap replacement Assessment to: Continue Date of Insertion: Apr 10, 2016 Date of Removal: Apr 22, 2016 Vascular Central Line Catheter: No A/P Assessment and Plan S/P traumatic brain injury: Initial head CT with right occipital bone fracture along with intraparenchymal hemorrhage, bilateral subdural hematomas, and subarachnoid hemorrhages. Patient is status post right frontal bur hole, right occipital craniectomy with SDH evacuation, left frontal temporoparietal decompressive craniotomy, and subsequent bone flap replacement. Neurosurgery has signed off. Discharged from PT/speech therapy/occupational therapy as patient has reached maximum benefit Keppra bid for seizure prophylaxis Sinus congestion, improved Continue saline nasal spray Hypertension: Stable Blood pressure stable, Metoprolol 12.5 mg every 12 hours Protein Calorie malnutrition: Resolved Initially requiring PEG tube, however patient had been eating well and PEG was removed 05/25. Continue current diet Recheck prealbumin, previous pre-albumin 4 Chronic neck pain Continue Tylenol and heat as needed DVT prophylaxis: Patient is ambulating well, low risk Discharge Planning Discharge planning per case management, [facility] to be sorted out. 09/12/16 1500 SPOKE WITH LOUANN AT THE [facility] FOR UPDATE ON ACCEPTANCE. WAS INFORMED HE IS TRYING TO GET INTOUCH WITH [facility] TO FIND OUT IF HAS RESOLVED THE ISSUE WITH GETTING INCOME ACCESS AND KNOWLEDGE OF AMOUNT IN ACCOUNT. I CALLED HIM AND LEFT A MESSAGE FOR A RETURN CALL DAVID ORTIZ LPN/JAYLAN/Kaushik Alex Sep 24, 2016 08:11
[2016-09-24] MEDS: levETIRAcetam 500 MG TAB PO SCH ×2 (08:32→19:54)
[2016-09-24] MEDS: METOPROLOL TARTRATE 25 MG TAB PO SCH ×2 (08:32→19:57)
[2016-09-24] MEDS: SELENIUM SULFIDE 1% SHAMPOO 207 ML BOTTLE TOPICAL SCH (09:00)
[2016-09-24 09:08] VITALS: TEMP 96.8
[2016-09-24 20:00] VITALS: BP 134/95; PULSE 69; RESP 18; TEMP 97.6; O2SAT 98
[2016-09-25 06:21] LABS: AUTOMATED NEUTROPHIL # 2.8 TH/MM3 (1.8-7.7); BASOPHIL % 0.4 % (0.0-2.0); EOSINOPHIL # 0.2 TH/MM3 (0-0.4); EOSINOPHIL % 3.3 % (0.0-4.0); HEMATOCRIT 42.3 % (39.0-51.0); HEMO FLAGS DIFF FINAL; LYMPH % 42.1 % (9.0-44.0); LYMPHOCYTE # 2.8 TH/MM3 (1.0-4.8); MEAN CELL VOLUME 90.6 FL (80.0-100.0); MEAN CORPUSCULAR HEMOGLOBIN 30.5 PG (27.0-34.0); MEAN CORPUSCULAR HGB CONC 33.7 % (32.0-36.0); MONO % 10.3 % (0.0-8.0); NEUT % 43.9 % (16.0-70.0); PLATELET COUNT 283 TH/MM3 (150-450); RED BLOOD COUNT 4.68 MIL/MM3 (4.50-5.90); RED CELL DISTRIBUTION WIDTH 12.2 % (11.6-17.2); WHITE BLOOD COUNT 6.5 TH/MM3 (4.0-11.0)
[2016-09-25 06:28] LABS: CHLORIDE 108 MEQ/L (98-107); POTASSIUM 3.9 MEQ/L (3.5-5.1); SODIUM (NA) 143 MEQ/L (136-145)
[2016-09-25 06:34] LABS: ANION GAP 11 MEQ/L (5-15); BICARBONATE 24.4 MEQ/L (21.0-32.0)
[2016-09-25 06:35] LABS: BLOOD UREA NITROGEN 15 MG/DL (7-18)
[2016-09-25 06:37] LABS: ALT (GPT) 19 U/L (12-78); AST (GOT) 9 U/L (15-37)
[2016-09-25 06:38] LABS: GLOMERULAR FILTRATION RATE 87 ML/MIN (>89)
[2016-09-25 06:39] LABS: TOTAL BILIRUBIN ADULT 0.5 MG/DL (0.2-1.0)
[2016-09-25 06:40] LABS: ALKALINE PHOSPHATASE 84 U/L (45-117)
[2016-09-25 08:00] VITALS: BP 135/88; PULSE 59; RESP 19; TEMP 96.7; O2SAT 97
[2016-09-25] MEDS: METOPROLOL TARTRATE 25 MG TAB PO SCH ×3 (08:30→20:00)
[2016-09-25] MEDS: levETIRAcetam 500 MG TAB PO SCH ×2 (08:30→20:00)
[2016-09-25] MEDS: SELENIUM SULFIDE 1% SHAMPOO 207 ML BOTTLE TOPICAL SCH (08:31)
--- NOTE | 2016-09-25 09:58 | HHI.PR ---
Subjective Remarks Patient seen and examined today. Patient complaining that room is too cold. Objective Vitals Vital Signs Date Time Temp Pulse Resp B/P Pulse Ox O2 Delivery O2 Flow Rate FiO2 09/25/16 08:00 96.7 59 19 135/88 97 09/24/16 20:00 97.6 69 18 134/95 98 I/O 09/24/16 09/24/16 09/24/16 09/25/16 09/25/16 09/25/16 07:00 15:00 23:00 07:00 15:00 23:00 Intake Total 480 ml 360 ml 0 ml Balance 480 ml 360 ml 0 ml Intake Oral 480 ml 360 ml 0 ml # Voids 3 4 1 # Bowel Movements 0 0 Result Diagram: 09/25/16 0555 09/25/16 0555 Objective Remarks GENERAL: Well-developed, well-nourished, in no acute distress. alert and orientated to person, month, year, place HEENT: Head is normocephalic without any lesions or masses noted. Facial features are symmetric. Eyes: Extraocular muscles are intact. Conjunctivae were clear. NECK: Supple without any masses. Trachea midline no deviation. CARDIAC: Regular rhythm, regular rate. S1/S2 are heard. No murmurs gallops or rubs. LUNGS: Clear to auscultation bilaterally. No wheeze, rhonchi or rales. No use of accessory muscles on inspiration or expiration. ABDOMEN: Soft, nontender. Nondistended. Bowel sounds heard in all 4 quadrants. No organomegaly or masses. Negative rebound, negative guarding EXTREMITIES: No edema, pulses are equal bilaterally. No cyanosis or clubbing NEUROLOGY: Mood and affect appear appropriate. Cranial nerves II through XII grossly intact. Moving all extremities, speech is clear Procedures 02/14 with right frontal bur hole and left subclavian line placement 02/15 with right occipital craniectomy with SDH evacuation 02/20 tracheostomy and PEG placement 02/25 left frontal temporoparietal decompressive craniotomy 03/06 PICC 03/29 bone flap replacement Urinary Catheter: No Date of Insertion: Apr 10, 2016 Date of Removal: Apr 22, 2016 Vascular Central Line Catheter: No A/P Assessment and Plan S/P traumatic brain injury: Initial head CT with right occipital bone fracture along with intraparenchymal hemorrhage, bilateral subdural hematomas, and subarachnoid hemorrhages. Patient is status post right frontal bur hole, right occipital craniectomy with SDH evacuation, left frontal temporoparietal decompressive craniotomy, and subsequent bone flap replacement. Neurosurgery has signed off. Discharged from PT/speech therapy/occupational therapy as patient has reached maximum benefit Keppra bid for seizure prophylaxis Sinus congestion, improved Continue saline nasal spray Hypertension: Stable Blood pressure stable, Metoprolol 12.5 mg every 12 hours Protein Calorie malnutrition: Resolved Initially requiring PEG tube, however patient had been eating well and PEG was removed 05/25. Continue current diet Recheck prealbumin, previous pre-albumin 4 Chronic neck pain Continue Tylenol and heat as needed DVT prophylaxis: Patient is ambulating well, low risk Discharge Planning Discharge planning per case management, daily patient has been accepted at the [facility], however awaiting financials to be sorted out. 09/24/16 0955 SPOKE WITH PATIENT'S [facility] AND HE HAS MADE PROGRESS WITH GETTING THE NEEDED INFORMATION R/T FINANCIALS AND GETTING ACCESS TO RETRIEVING STATEMENTS TO ASSIST IN GETTING THIS INFORMATION TO THE SNF. ONCE THE AMOUNT OF FUNDS PATIENT HAS IS KNOWN WE CAN MOVE FORWARD IN GETTING SPEND DOWN IF NEEDED AND PLACE PATIENT WILL CONT TO FOLLOW CLOSELY. DAVID ORTIZ LPN/SANTA/CHARGE Kaushik Mcguire Sep 25, 2016 09:58
[2016-09-25 20:00] VITALS: BP 136/97; PULSE 68; RESP 18; TEMP 98.1; O2SAT 99
[2016-09-25] MEDS: diphenhydrAMINE HCL 50 MG CAP PO PRN (20:05)
[2016-09-26] MEDS: levETIRAcetam 500 MG TAB PO SCH ×2 (07:59→21:19)
[2016-09-26 08:00] VITALS: BP 129/78; PULSE 64; RESP 16; TEMP 97.3; O2SAT 97
[2016-09-26] MEDS: SELENIUM SULFIDE 1% SHAMPOO 207 ML BOTTLE TOPICAL SCH (08:00)
[2016-09-26] MEDS: METOPROLOL TARTRATE 25 MG TAB PO SCH ×2 (08:00→21:00)
--- NOTE | 2016-09-26 09:18 | HHI.PR ---
Subjective Remarks Patient seen and examined today. Patient has any new complaints. No change in clinical status. Objective Vitals Vital Signs Date Time Temp Pulse Resp B/P Pulse Ox O2 Delivery O2 Flow Rate FiO2 09/26/16 08:00 97.3 64 16 129/78 97 09/25/16 20:00 98.1 68 18 136/97 99 I/O 09/25/16 09/25/16 09/25/16 09/26/16 09/26/16 09/26/16 06:59 14:59 22:59 06:59 14:59 22:59 Intake Total 0 ml 600 ml 240 ml 240 ml Balance 0 ml 600 ml 240 ml 240 ml Intake Oral 0 ml 600 ml 240 ml 240 ml # Voids 1 3 2 1 # Bowel Movements 0 1 0 0 Result Diagram: 09/25/16 0555 09/25/16 0555 Objective Remarks GENERAL: Well-developed, well-nourished, in no acute distress. alert and orientated to person, month, year, place HEENT: Head is normocephalic without any lesions or masses noted. Facial features are symmetric. Eyes: Extraocular muscles are intact. Conjunctivae were clear. NECK: Supple without any masses. Trachea midline no deviation. CARDIAC: Regular rhythm, regular rate. S1/S2 are heard. No murmurs gallops or rubs. LUNGS: Clear to auscultation bilaterally. No wheeze, rhonchi or rales. No use of accessory muscles on inspiration or expiration. ABDOMEN: Soft, nontender. Nondistended. Bowel sounds heard in all 4 quadrants. No organomegaly or masses. Negative rebound, negative guarding EXTREMITIES: No edema, pulses are equal bilaterally. No cyanosis or clubbing NEUROLOGY: Mood and affect appear appropriate. Cranial nerves II through XII grossly intact. Moving all extremities, speech is clear Procedures 02/14 with right frontal bur hole and left subclavian line placement 02/15 with right occipital craniectomy with SDH evacuation 02/20 tracheostomy and PEG placement 02/25 left frontal temporoparietal decompressive craniotomy 03/06 PICC 03/29 bone flap replacement Urinary Catheter: No Date of Insertion: Apr 10, 2016 Date of Removal: Apr 22, 2016 Vascular Central Line Catheter: No A/P Assessment and Plan S/P traumatic brain injury: Initial head CT with right occipital bone fracture along with intraparenchymal hemorrhage, bilateral subdural hematomas, and subarachnoid hemorrhages. Patient is status post right frontal bur hole, right occipital craniectomy with SDH evacuation, left frontal temporoparietal decompressive craniotomy, and subsequent bone flap replacement. Neurosurgery has signed off. Discharged from PT/speech therapy/occupational therapy as patient has reached maximum benefit Keppra bid for seizure prophylaxis Sinus congestion, improved Continue saline nasal spray Hypertension: Stable Blood pressure stable, Metoprolol 12.5 mg every 12 hours Protein Calorie malnutrition: Resolved Initially requiring PEG tube, however patient had been eating well and PEG was removed 05/25. Continue current diet Recheck prealbumin, previous pre-albumin 4 Chronic neck pain Continue Tylenol and heat as needed DVT prophylaxis: Patient is ambulating well, low risk Discharge Planning Discharge planning per case management, daily patient has been accepted at the [facility], however awaiting financials to be sorted out. 09/24/16 0955 SPOKE WITH PATIENT'S [facility] AND HE HAS MADE PROGRESS WITH GETTING THE NEEDED INFORMATION R/T FINANCIALS AND GETTING ACCESS TO RETRIEVING STATEMENTS TO ASSIST IN GETTING THIS INFORMATION TO THE SNF. ONCE THE AMOUNT OF FUNDS PATIENT HAS IS KNOWN WE CAN MOVE FORWARD IN GETTING SPEND DOWN IF NEEDED AND PLACE PATIENT WILL CONT TO FOLLOW CLOSELY. DAVID ORTIZ LPN/SANTA/CHARGE Kaushik Mcguire Sep 26, 2016 09:18
[2016-09-26 20:00] VITALS: BP 119/78; PULSE 67; RESP 18; TEMP 97.7; O2SAT 98
[2016-09-27 08:00] VITALS: BP 131/82; PULSE 64; RESP 20; TEMP 97.2; O2SAT 96
[2016-09-27] MEDS: SELENIUM SULFIDE 1% SHAMPOO 207 ML BOTTLE TOPICAL SCH (08:36)
[2016-09-27] MEDS: METOPROLOL TARTRATE 25 MG TAB PO SCH ×2 (08:36→20:10)
[2016-09-27] MEDS: levETIRAcetam 500 MG TAB PO SCH ×2 (08:36→20:09)
--- NOTE | 2016-09-27 09:39 | HHI.PR ---
Subjective Remarks Patient seen and examined today. Patient denies any new complaints. No change in clinical status Objective Vitals Vital Signs Date Time Temp Pulse Resp B/P Pulse Ox O2 Delivery O2 Flow Rate FiO2 09/26/16 20:00 97.7 67 18 119/78 98 I/O 09/26/16 09/26/16 09/26/16 09/27/16 09/27/16 09/27/16 07:00 15:00 23:00 07:00 15:00 23:00 Intake Total 240 ml 950 ml 0 ml 0 ml Balance 240 ml 950 ml 0 ml 0 ml Intake Oral 240 ml 950 ml IV Total 0 ml 0 ml # Voids 1 4 # Bowel Movements 0 Result Diagram: 09/25/16 0555 09/25/1655 Objective Remarks GENERAL: Well-developed, well-nourished, in no acute distress. alert and orientated to person, month, year, place HEENT: Head is normocephalic without any lesions or masses noted. Facial features are symmetric. Eyes: Extraocular muscles are intact. Conjunctivae were clear. NECK: Supple without any masses. Trachea midline no deviation. CARDIAC: Regular rhythm, regular rate. S1/S2 are heard. No murmurs gallops or rubs. LUNGS: Clear to auscultation bilaterally. No wheeze, rhonchi or rales. No use of accessory muscles on inspiration or expiration. ABDOMEN: Soft, nontender. Nondistended. Bowel sounds heard in all 4 quadrants. No organomegaly or masses. Negative rebound, negative guarding EXTREMITIES: No edema, pulses are equal bilaterally. No cyanosis or clubbing NEUROLOGY: Mood and affect appear appropriate. Cranial nerves II through XII grossly intact. Moving all extremities, speech is clear Procedures 02/14 with right frontal bur hole and left subclavian line placement 02/15 with right occipital craniectomy with SDH evacuation 02/20 tracheostomy and PEG placement 02/25 left frontal temporoparietal decompressive craniotomy 03/06 PICC 03/29 bone flap replacement Urinary Catheter: No Date of Insertion: Apr 10, 2016 Date of Removal: Apr 22, 2016 Vascular Central Line Catheter: No A/P Assessment and Plan S/P traumatic brain injury: Initial head CT with right occipital bone fracture along with intraparenchymal hemorrhage, bilateral subdural hematomas, and subarachnoid hemorrhages. Patient is status post right frontal bur hole, right occipital craniectomy with SDH evacuation, left frontal temporoparietal decompressive craniotomy, and subsequent bone flap replacement. Neurosurgery has signed off. Discharged from PT/speech therapy/occupational therapy as patient has reached maximum benefit Keppra bid for seizure prophylaxis Sinus congestion, improved Continue saline nasal spray Hypertension: Stable Blood pressure stable, Metoprolol 12.5 mg every 12 hours Protein Calorie malnutrition: Resolved Initially requiring PEG tube, however patient had been eating well and PEG was removed 05/25. Continue current diet Recheck prealbumin, previous pre-albumin 4 Chronic neck pain Continue Tylenol and heat as needed DVT prophylaxis: Patient is ambulating well, low risk Discharge Planning Discharge planning per case management, daily patient has been accepted at the [facility], however awaiting financials to be sorted out. 09/24/16 0905 SPOKE WITH PATIENT'S [facility] AND HE HAS MADE PROGRESS WITH GETTING THE NEEDED INFORMATION R/T FINANCIALS AND GETTING ACCESS TO RETRIEVING STATEMENTS TO ASSIST IN GETTING THIS INFORMATION TO THE SNF. ONCE THE AMOUNT OF FUNDS PATIENT HAS IS KNOWN WE CAN MOVE FORWARD IN GETTING SPEND DOWN IF NEEDED AND PLACE PATIENT WILL CONT TO FOLLOW CLOSELY. DAVID ORTIZ LPN/CM/CHARGE Kaushik Mcguire Sep 27, 2016 09:39
[2016-09-27 20:00] VITALS: BP 113/71; PULSE 62; RESP 18; TEMP 99; O2SAT 96
[2016-09-28 08:00] VITALS: BP 127/84; PULSE 63; RESP 18; TEMP 97.9; O2SAT 95
--- NOTE | 2016-09-28 08:28 | HHI.PR ---
Subjective Remarks Patient seen and examined today. Patient denies any new complaints. No change in clinical status. Objective Vitals Vital Signs Date Time Temp Pulse Resp B/P Pulse Ox O2 Delivery O2 Flow Rate FiO2 09/27/16 20:00 99.0 62 18 113/71 96 I/O 09/27/16 09/27/16 09/27/16 09/28/16 09/28/16 09/28/16 07:00 15:00 23:00 07:00 15:00 23:00 Intake Total 0 ml 0 ml 500 ml Balance 0 ml 0 ml 500 ml Intake Oral 500 ml IV Total 0 ml 0 ml # Voids 4 Result Diagram: 09/25/16 0555 09/25/16 0555 Objective Remarks GENERAL: Well-developed, well-nourished, in no acute distress. alert and orientated to person, month, year, place HEENT: Head is normocephalic without any lesions or masses noted. Facial features are symmetric. Eyes: Extraocular muscles are intact. Conjunctivae were clear. NECK: Supple without any masses. Trachea midline no deviation. CARDIAC: Regular rhythm, regular rate. S1/S2 are heard. No murmurs gallops or rubs. LUNGS: Clear to auscultation bilaterally. No wheeze, rhonchi or rales. No use of accessory muscles on inspiration or expiration. ABDOMEN: Soft, nontender. Nondistended. Bowel sounds heard in all 4 quadrants. No organomegaly or masses. Negative rebound, negative guarding EXTREMITIES: No edema, pulses are equal bilaterally. No cyanosis or clubbing NEUROLOGY: Mood and affect appear appropriate. Cranial nerves II through XII grossly intact. Moving all extremities, speech is clear Procedures 02/14 with right frontal bur hole and left subclavian line placement 02/15 with right occipital craniectomy with SDH evacuation 02/20 tracheostomy and PEG placement 02/25 left frontal temporoparietal decompressive craniotomy 03/06 PICC 03/29 bone flap replacement Urinary Catheter: No Date of Insertion: Apr 10, 2016 Date of Removal: Apr 22, 2016 Vascular Central Line Catheter: No A/P Assessment and Plan S/P traumatic brain injury: Initial head CT with right occipital bone fracture along with intraparenchymal hemorrhage, bilateral subdural hematomas, and subarachnoid hemorrhages. Patient is status post right frontal bur hole, right occipital craniectomy with SDH evacuation, left frontal temporoparietal decompressive craniotomy, and subsequent bone flap replacement. Neurosurgery has signed off. Discharged from PT/speech therapy/occupational therapy as patient has reached maximum benefit Keppra bid for seizure prophylaxis Hypertension: Stable Blood pressure stable, Metoprolol 12.5 mg every 12 hours Protein Calorie malnutrition: Resolved Initially requiring PEG tube, however patient had been eating well and PEG was removed 05/25. Continue current diet Prealbumin 30 Chronic neck pain Continue Tylenol and heat as needed DVT prophylaxis: Patient is ambulating well, low risk Discharge Planning Discharge planning per case management, daily patient has been accepted at the [facility], however awaiting financials to be sorted out. 09/24/16 0955 SPOKE WITH PATIENT'S [facility] AND HE HAS MADE PROGRESS WITH GETTING THE NEEDED INFORMATION R/T FINANCIALS AND GETTING ACCESS TO RETRIEVING STATEMENTS TO ASSIST IN GETTING THIS INFORMATION TO THE SNF. ONCE THE AMOUNT OF FUNDS PATIENT HAS IS KNOWN WE CAN MOVE FORWARD IN GETTING SPEND DOWN IF NEEDED AND PLACE PATIENT WILL CONT TO FOLLOW CLOSELY. DAVID ORTIZ LPN/CM/CHARGE Kaushik Mcguire Sep 28, 2016 08:28
[2016-09-28] MEDS: SELENIUM SULFIDE 1% SHAMPOO 207 ML BOTTLE TOPICAL SCH (09:00)
[2016-09-28] MEDS: levETIRAcetam 500 MG TAB PO SCH ×2 (09:17→20:09)
[2016-09-28] MEDS: METOPROLOL TARTRATE 25 MG TAB PO SCH ×2 (09:17→20:09)
[2016-09-28 21:18] VITALS: BP 119/84; PULSE 62; RESP 20; TEMP 96.2; O2SAT 97
[2016-09-29 08:00] VITALS: BP 131/90; PULSE 61; RESP 20; TEMP 97.6; O2SAT 98
[2016-09-29] MEDS: SELENIUM SULFIDE 1% SHAMPOO 207 ML BOTTLE TOPICAL SCH (09:00)
[2016-09-29] MEDS: METOPROLOL TARTRATE 25 MG TAB PO SCH ×2 (09:10→20:03)
[2016-09-29] MEDS: levETIRAcetam 500 MG TAB PO SCH ×2 (09:10→20:03)
--- NOTE | 2016-09-29 10:12 | HHI.PR ---
Subjective Remarks Patient seen and examined today. Patient has any new complaints. No change in clinical status. Objective Vitals Vital Signs Date Time Temp Pulse Resp B/P Pulse Ox O2 Delivery O2 Flow Rate FiO2 09/29/16 08:00 97.6 61 20 131/90 98 09/28/16 21:18 96.2 62 20 119/84 97 I/O 09/28/16 09/28/16 09/28/16 09/29/16 09/29/16 09/29/16 07:00 15:00 23:00 07:00 15:00 23:00 Intake Total 500 ml 960 ml 200 ml 50 ml Balance 500 ml 960 ml 200 ml 50 ml Intake Oral 500 ml 960 ml 200 ml 50 ml # Voids 4 2 4 5 # Bowel Movements 1 Result Diagram: 09/25/16 0555 09/25/16 0555 Objective Remarks GENERAL: Well-developed, well-nourished, in no acute distress. alert and orientated to person, month, year, place HEENT: Head is normocephalic without any lesions or masses noted. Facial features are symmetric. Eyes: Extraocular muscles are intact. Conjunctivae were clear. NECK: Supple without any masses. Trachea midline no deviation. CARDIAC: Regular rhythm, regular rate. S1/S2 are heard. No murmurs gallops or rubs. LUNGS: Clear to auscultation bilaterally. No wheeze, rhonchi or rales. No use of accessory muscles on inspiration or expiration. ABDOMEN: Soft, nontender. Nondistended. Bowel sounds heard in all 4 quadrants. No organomegaly or masses. Negative rebound, negative guarding EXTREMITIES: No edema, pulses are equal bilaterally. No cyanosis or clubbing NEUROLOGY: Mood and affect appear appropriate. Cranial nerves II through XII grossly intact. Moving all extremities, speech is clear Procedures 02/14 with right frontal bur hole and left subclavian line placement 02/15 with right occipital craniectomy with SDH evacuation 02/20 tracheostomy and PEG placement 02/25 left frontal temporoparietal decompressive craniotomy 03/06 PICC 03/29 bone flap replacement Urinary Catheter: No Date of Insertion: Apr 10, 2016 Date of Removal: Apr 22, 2016 Vascular Central Line Catheter: No A/P Assessment and Plan S/P traumatic brain injury: Initial head CT with right occipital bone fracture along with intraparenchymal hemorrhage, bilateral subdural hematomas, and subarachnoid hemorrhages. Patient is status post right frontal bur hole, right occipital craniectomy with SDH evacuation, left frontal temporoparietal decompressive craniotomy, and subsequent bone flap replacement. Neurosurgery has signed off. Discharged from PT/speech therapy/occupational therapy as patient has reached maximum benefit Keppra bid for seizure prophylaxis Hypertension: Stable Blood pressure stable, Metoprolol 12.5 mg every 12 hours Protein Calorie malnutrition: Resolved Initially requiring PEG tube, however patient had been eating well and PEG was removed 05/25. Continue current diet Prealbumin 30 Chronic neck pain Continue Tylenol and heat as needed DVT prophylaxis: Patient is ambulating well, low risk Discharge Planning Discharge planning per case management, daily patient has been accepted at the [facility], however awaiting financials to be sorted out. 09/24/16 0955 SPOKE WITH PATIENT'S [facility] AND HE HAS MADE PROGRESS WITH GETTING THE NEEDED INFORMATION R/T FINANCIALS AND GETTING ACCESS TO RETRIEVING STATEMENTS TO ASSIST IN GETTING THIS INFORMATION TO THE SNF. ONCE THE AMOUNT OF FUNDS PATIENT HAS IS KNOWN WE CAN MOVE FORWARD IN GETTING SPEND DOWN IF NEEDED AND PLACE PATIENT WILL CONT TO FOLLOW CLOSELY. DAVID ORTIZ LPN/CM/CHARGE Kaushik Mcguire Sep 29, 2016 10:12
[2016-09-29 20:00] VITALS: BP 121/79; PULSE 59; RESP 16; TEMP 96.7; O2SAT 97
[2016-09-30 08:00] VITALS: BP 128/76; PULSE 58; RESP 16; TEMP 96.2; O2SAT 96
[2016-09-30] MEDS: SELENIUM SULFIDE 1% SHAMPOO 207 ML BOTTLE TOPICAL SCH (08:19)
[2016-09-30] MEDS: METOPROLOL TARTRATE 25 MG TAB PO SCH ×2 (08:19→21:43)
[2016-09-30] MEDS: levETIRAcetam 500 MG TAB PO SCH ×2 (08:21→21:43)
--- NOTE | 2016-09-30 11:52 | HHI.PR ---
Subjective Remarks Patient seen and examined today. Patient denies any new complaints. No change clinical status. Objective Vitals Vital Signs Date Time Temp Pulse Resp B/P Pulse Ox O2 Delivery O2 Flow Rate FiO2 09/30/16 08:00 96.2 58 16 128/76 96 09/29/16 20:00 96.7 59 16 121/79 97 I/O 09/29/16 09/29/16 09/29/16 09/30/16 09/30/16 09/30/16 07:00 15:00 23:00 07:00 15:00 23:00 Intake Total 50 ml 1070 ml 160 ml Balance 50 ml 1070 ml 160 ml Intake Oral 50 ml 1070 ml 160 ml # Voids 5 2 2 2 # Bowel Movements 0 Objective Remarks GENERAL: Well-developed, well-nourished, in no acute distress. alert and orientated to person, month, year, place HEENT: Head is normocephalic without any lesions or masses noted. Facial features are symmetric. Eyes: Extraocular muscles are intact. Conjunctivae were clear. NECK: Supple without any masses. Trachea midline no deviation. CARDIAC: Regular rhythm, regular rate. S1/S2 are heard. No murmurs gallops or rubs. LUNGS: Clear to auscultation bilaterally. No wheeze, rhonchi or rales. No use of accessory muscles on inspiration or expiration. ABDOMEN: Soft, nontender. Nondistended. Bowel sounds heard in all 4 quadrants. No organomegaly or masses. Negative rebound, negative guarding EXTREMITIES: No edema, pulses are equal bilaterally. No cyanosis or clubbing NEUROLOGY: Mood and affect appear appropriate. Cranial nerves II through XII grossly intact. Moving all extremities, speech is clear Procedures 02/14 with right frontal bur hole and left subclavian line placement 02/15 with right occipital craniectomy with SDH evacuation 02/20 tracheostomy and PEG placement 02/25 left frontal temporoparietal decompressive craniotomy 03/06 PICC 03/29 bone flap replacement Urinary Catheter: No Date of Insertion: Apr 10, 2016 Date of Removal: Apr 22, 2016 Vascular Central Line Catheter: No A/P Assessment and Plan S/P traumatic brain injury: Initial head CT with right occipital bone fracture along with intraparenchymal hemorrhage, bilateral subdural hematomas, and subarachnoid hemorrhages. Patient is status post right frontal bur hole, right occipital craniectomy with SDH evacuation, left frontal temporoparietal decompressive craniotomy, and subsequent bone flap replacement. Neurosurgery has signed off. Discharged from PT/speech therapy/occupational therapy as patient has reached maximum benefit Keppra bid for seizure prophylaxis Hypertension: Stable Blood pressure stable, Metoprolol 12.5 mg every 12 hours Protein Calorie malnutrition: Resolved Initially requiring PEG tube, however patient had been eating well and PEG was removed 05/25. Continue current diet Prealbumin 30 Chronic neck pain Continue Tylenol and heat as needed DVT prophylaxis: Patient is ambulating well, low risk Discharge Planning Discharge planning per case management, daily patient has been accepted at the [facility], however awaiting financials to be sorted out. 09/24/16 0955 SPOKE WITH PATIENT'S [facility] AND HE HAS MADE PROGRESS WITH GETTING THE NEEDED INFORMATION R/T FINANCIALS AND GETTING ACCESS TO RETRIEVING STATEMENTS TO ASSIST IN GETTING THIS INFORMATION TO THE SNF. ONCE THE AMOUNT OF FUNDS PATIENT HAS IS KNOWN WE CAN MOVE FORWARD IN GETTING SPEND DOWN IF NEEDED AND PLACE PATIENT WILL CONT TO FOLLOW CLOSELY. DAVID ORTIZ LPN/CM/CHARGE Kaushik Mcguire Sep 30, 2016 11:52
[2016-09-30 20:00] VITALS: BP 122/86; PULSE 62; RESP 18; TEMP 96.2; O2SAT 99
[2016-10-01 08:45] VITALS: BP 133/84; PULSE 53; RESP 18; TEMP 97.8; O2SAT 97
[2016-10-01] MEDS: SELENIUM SULFIDE 1% SHAMPOO 207 ML BOTTLE TOPICAL SCH (09:00)
[2016-10-01] MEDS: METOPROLOL TARTRATE 25 MG TAB PO SCH ×2 (09:06→21:37)
[2016-10-01] MEDS: levETIRAcetam 500 MG TAB PO SCH ×2 (09:06→21:37)
--- NOTE | 2016-10-01 09:06 | HHI.PR ---
Subjective Remarks No acute complaints. No change in clinical status. Objective Vitals Vital Signs Date Time Temp Pulse Resp B/P Pulse Ox O2 Delivery O2 Flow Rate FiO2 10/01/16 08:45 97.8 53 18 133/84 97 09/30/16 20:00 96.2 62 18 122/86 99 I/O 09/30/16 09/30/16 09/30/16 10/01/16 10/01/16 10/01/16 07:00 15:00 23:00 07:00 15:00 23:00 Intake Total 1080 ml 240 ml Balance 1080 ml 240 ml Intake Oral 1080 ml 240 ml # Voids 2 7 1 # Bowel Movements 0 0 Objective Remarks GENERAL: Well-nourished, well-developed patient in no apparent distress. CARDIOVASCULAR: Regular rate and rhythm. RESPIRATORY: No accessory muscle use. CTAB. GASTROINTESTINAL: Abdomen soft, nontender, nondistended. NEUROLOGICAL: Awake and alert. Motor grossly within normal limits. Normal speech. PSYCHIATRIC: Appropriate mood and affect. Procedures 02/14 with right frontal bur hole and left subclavian line placement 02/15 with right occipital craniectomy with SDH evacuation 02/20 tracheostomy and PEG placement 02/25 left frontal temporoparietal decompressive craniotomy 03/06 PICC 03/29 bone flap replacement Urinary Catheter: No Date of Insertion: Apr 10, 2016 Date of Removal: Apr 22, 2016 Vascular Central Line Catheter: No A/P Problem List: (1) Traumatic brain injury ICD Code: S06.9X9A Status: Acute (2) HTN (hypertension) ICD Code: I10 Status: Chronic (3) Insomnia ICD Code: G47.00 Status: Acute (4) Urinary retention ICD Code: R33.9 Status: Resolved (5) Protein calorie malnutrition ICD Code: E46 Status: Acute (6) Cervical muscle strain ICD Code: S16.1XXA Status: Acute (7) Bilateral impacted cerumen ICD Code: H61.23 Status: Resolved Assessment and Plan S/P traumatic brain injury: Initial head CT with right occipital bone fracture along with intraparenchymal hemorrhage, bilateral subdural hematomas, and subarachnoid hemorrhages. Patient is status post right frontal bur hole, right occipital craniectomy with SDH evacuation, left frontal temporoparietal decompressive craniotomy, and subsequent bone flap replacement. Neurosurgery has signed off. Discharged from PT/speech therapy/occupational therapy as patient has reached maximum benefit Keppra bid for seizure prophylaxis Hypertension: Stable Metoprolol 12.5 mg every 12 hours Monitor BP Protein Calorie malnutrition: Resolved Initially requiring PEG tube, however patient had been eating well and PEG was removed 05/25. Continue current diet Cerumen impaction: Resolved. -S/p Debrox treatment and repeat R ear irrigation. Hearing now improved. Chronic neck pain Continue Tylenol and heat as needed DVT prophylaxis: Patient is ambulating well, low risk Discharge Planning Patient has been accepted to [place] when financial situation is resolved regarding early [facility] benefits. Healthcare surrogate is assisting with this. Problem Qualifiers (1) HTN (hypertension): Qualified Code: I10 - Essential hypertension Christina Hoff Oct 01, 2016 09:06
[2016-10-01 20:00] VITALS: BP 134/78; PULSE 63; RESP 16; TEMP 97.6; O2SAT 98
[2016-10-02 08:00] VITALS: BP 114/86; PULSE 54; RESP 18; TEMP 97.9; O2SAT 96
[2016-10-02] MEDS: SELENIUM SULFIDE 1% SHAMPOO 207 ML BOTTLE TOPICAL SCH (09:00)
[2016-10-02] MEDS: METOPROLOL TARTRATE 25 MG TAB PO SCH ×2 (09:00→21:03)
[2016-10-02] MEDS: levETIRAcetam 500 MG TAB PO SCH ×2 (09:21→21:03)
--- NOTE | 2016-10-02 14:15 | HHI.PR ---
Subjective Remarks Patient seen today in follow-up for continued discharge planning. No new events overnight. Objective Vitals Vital Signs Date Time Temp Pulse Resp B/P Pulse Ox O2 Delivery O2 Flow Rate FiO2 10/02/16 08:00 97.9 54 18 114/86 96 10/01/16 20:00 97.6 63 16 134/78 98 I/O 10/01/16 10/01/16 10/01/16 10/02/16 10/02/16 10/02/16 07:00 15:00 23:00 07:00 15:00 23:00 Intake Total 240 ml 460 ml 300 ml Balance 240 ml 460 ml 300 ml Intake Oral 240 ml 460 ml 300 ml # Voids 1 2 2 2 # Bowel Movements 0 0 0 Objective Remarks GENERAL: This is a well-nourished, well-developed patient, calm, status post left cranial surgery with jacinto in place CARDIOVASCULAR: Regular rate and rhythm without murmurs, gallops, or rubs. RESPIRATORY: Clear to auscultation. Breath sounds equal bilaterally. No wheezes , rales, or rhonchi. GASTROINTESTINAL: PEG tube Place, Abdomen soft, non-tender, nondistended. Normal active bowel sounds MUSCULOSKELETAL: Right extremity stiffness and edema, otherwise moves all 4 extremities NEURO: Alert & Oriented to person, significant expressive aphasia but attempts to answer questions Procedures 02/14 with right frontal bur hole and left subclavian line placement 02/15 with right occipital craniectomy with SDH evacuation 02/20 tracheostomy and PEG placement 02/25 left frontal temporoparietal decompressive craniotomy 03/06 PICC 03/29 bone flap replacement Date of Insertion: Apr 10, 2016 Date of Removal: Apr 22, 2016 A/P Assessment and Plan Hospital day 230 for this patient with continued cognitive impairment Discharge Planning Case management aware of barriers to discharge Stephany Cameron MD Oct 02, 2016 14:15
[2016-10-02 20:00] VITALS: BP 112/83; PULSE 66; RESP 20; TEMP 96.8; O2SAT 97
[2016-10-03 08:00] VITALS: BP 137/86; PULSE 83; RESP 20; TEMP 97.3; O2SAT 97
--- NOTE | 2016-10-03 08:59 | HHI.PR ---
Subjective Remarks Patient complains of some left sided nasal congestion and a minor cough, but denies any fevers. Objective Vitals Vital Signs Date Time Temp Pulse Resp B/P Pulse Ox O2 Delivery O2 Flow Rate FiO2 10/02/16 20:00 96.8 66 20 112/83 97 I/O 10/02/16 10/02/16 10/02/16 10/03/16 10/03/16 10/03/16 07:00 15:00 23:00 07:00 15:00 23:00 Intake Total 300 ml 240 ml Output Total 400 ml Balance 300 ml -160 ml Intake Oral 300 ml 240 ml Output Urine Total 400 ml # Voids 2 1 # Bowel Movements 0 0 Objective Remarks GENERAL: Well-nourished, well-developed patient in no apparent distress. CARDIOVASCULAR: Regular rate and rhythm. RESPIRATORY: No accessory muscle use. CTAB. GASTROINTESTINAL: Normoactive bowel sounds. Abdomen soft, nontender, nondistended. NEUROLOGICAL: Awake and alert. Normal speech. PSYCHIATRIC: Appropriate mood and affect. Procedures 02/14 with right frontal bur hole and left subclavian line placement 02/15 with right occipital craniectomy with SDH evacuation 02/20 tracheostomy and PEG placement 02/25 left frontal temporoparietal decompressive craniotomy 03/06 PICC 03/29 bone flap replacement Urinary Catheter: No Date of Insertion: Apr 10, 2016 Date of Removal: Apr 22, 2016 Vascular Central Line Catheter: No A/P Problem List: (1) Traumatic brain injury ICD Code: S06.9X9A Status: Acute (2) HTN (hypertension) ICD Code: I10 Status: Chronic (3) Insomnia ICD Code: G47.00 Status: Acute (4) Urinary retention ICD Code: R33.9 Status: Resolved (5) Protein calorie malnutrition ICD Code: E46 Status: Acute (6) Cervical muscle strain ICD Code: S16.1XXA Status: Acute (7) Bilateral impacted cerumen ICD Code: H61.23 Status: Resolved Assessment and Plan S/P traumatic brain injury: Initial head CT with right occipital bone fracture along with intraparenchymal hemorrhage, bilateral subdural hematomas, and subarachnoid hemorrhages. Patient is status post right frontal bur hole, right occipital craniectomy with SDH evacuation, left frontal temporoparietal decompressive craniotomy, and subsequent bone flap replacement. Neurosurgery has signed off. Discharged from PT/speech therapy/occupational therapy as patient has reached maximum benefit Keppra bid for seizure prophylaxis Hypertension: Stable Metoprolol 12.5 mg every 12 hours Monitor BP Protein Calorie malnutrition: Resolved Initially requiring PEG tube, however patient had been eating well and PEG was removed 05/25. Continue current diet Cerumen impaction: Resolved. -S/p Debrox treatment and repeat R ear irrigation. Hearing now improved. Chronic neck pain Continue Tylenol and heat as needed DVT prophylaxis: Patient is ambulating well, low risk Discharge Planning Patient has been accepted to [place] when financial situation is resolved regarding early longterm benefits. Healthcare surrogate is assisting with this. Problem Qualifiers (1) HTN (hypertension): Qualified Code: I10 - Essential hypertension Christina Hoff Oct 03, 2016 08:59
[2016-10-03] MEDS: SELENIUM SULFIDE 1% SHAMPOO 207 ML BOTTLE TOPICAL SCH (09:00)
[2016-10-03] MEDS: levETIRAcetam 500 MG TAB PO SCH ×2 (09:19→21:56)
[2016-10-03] MEDS: METOPROLOL TARTRATE 25 MG TAB PO SCH ×2 (09:19→21:56)
[2016-10-03 20:00] VITALS: BP 131/85; PULSE 60; RESP 18; TEMP 98.3
[2016-10-04 08:00] VITALS: BP 121/77; PULSE 59; RESP 20; TEMP 97.8; O2SAT 98
[2016-10-04] MEDS: SELENIUM SULFIDE 1% SHAMPOO 207 ML BOTTLE TOPICAL SCH (09:00)
[2016-10-04] MEDS: METOPROLOL TARTRATE 25 MG TAB PO SCH ×2 (09:22→20:23)
[2016-10-04] MEDS: levETIRAcetam 500 MG TAB PO SCH ×2 (09:22→20:23)
--- NOTE | 2016-10-04 12:13 | HHI.PR ---
Subjective Remarks No acute complaints. No change in clinical status. Objective Vitals Vital Signs Date Time Temp Pulse Resp B/P Pulse Ox O2 Delivery O2 Flow Rate FiO2 10/04/16 08:00 97.8 59 20 121/77 98 10/03/16 20:00 98.3 60 18 131/85 I/O 10/03/16 10/03/16 10/03/16 10/04/16 10/04/16 10/04/16 07:00 15:00 23:00 07:00 15:00 23:00 Intake Total 960 ml Output Total 3 ml Balance 957 ml Intake Oral 960 ml Output Urine Total 3 ml Stool Total 0 ml # Voids 2 # Bowel Movements 0 Objective Remarks GENERAL: Well-nourished, well-developed patient in no apparent distress. CARDIOVASCULAR: Regular rate and rhythm. RESPIRATORY: No accessory muscle use. CTAB. GASTROINTESTINAL: Abdomen soft, nontender, nondistended. NEUROLOGICAL: Awake and alert. Normal speech. PSYCHIATRIC: Appropriate mood and affect. Procedures 02/14 with right frontal bur hole and left subclavian line placement 02/15 with right occipital craniectomy with SDH evacuation 02/20 tracheostomy and PEG placement 02/25 left frontal temporoparietal decompressive craniotomy 03/06 PICC 03/29 bone flap replacement Urinary Catheter: No Date of Insertion: Apr 10, 2016 Date of Removal: Apr 22, 2016 Vascular Central Line Catheter: No A/P Problem List: (1) Traumatic brain injury ICD Code: S06.9X9A Status: Acute (2) HTN (hypertension) ICD Code: I10 Status: Chronic (3) Insomnia ICD Code: G47.00 Status: Acute (4) Urinary retention ICD Code: R33.9 Status: Resolved (5) Protein calorie malnutrition ICD Code: E46 Status: Acute (6) Cervical muscle strain ICD Code: S16.1XXA Status: Acute (7) Bilateral impacted cerumen ICD Code: H61.23 Status: Resolved Assessment and Plan S/P traumatic brain injury: Initial head CT with right occipital bone fracture along with intraparenchymal hemorrhage, bilateral subdural hematomas, and subarachnoid hemorrhages. Patient is status post right frontal bur hole, right occipital craniectomy with SDH evacuation, left frontal temporoparietal decompressive craniotomy, and subsequent bone flap replacement. Neurosurgery has signed off. Discharged from PT/speech therapy/occupational therapy as patient has reached maximum benefit Keppra bid for seizure prophylaxis Hypertension: Stable Metoprolol 12.5 mg every 12 hours Monitor BP Protein Calorie malnutrition: Resolved Initially requiring PEG tube, however patient had been eating well and PEG was removed 05/25. Continue current diet Cerumen impaction: Resolved. -S/p Debrox treatment and repeat R ear irrigation. Hearing now improved. Chronic neck pain Continue Tylenol and heat as needed DVT prophylaxis: Patient is ambulating well, low risk Discharge Planning Hope to be accepted to [place] by mid next week when financial situation is resolved. Problem Qualifiers (1) HTN (hypertension): Qualified Code: I10 - Essential hypertension Christina Hoff Oct 04, 2016 12:12
[2016-10-04 20:00] VITALS: BP 130/95; PULSE 58; RESP 21; TEMP 95.6; O2SAT 98
[2016-10-05 08:00] VITALS: BP 122/79; PULSE 58; RESP 18; TEMP 97; O2SAT 96
[2016-10-05] MEDS: SELENIUM SULFIDE 1% SHAMPOO 207 ML BOTTLE TOPICAL SCH (08:32)
[2016-10-05] MEDS: METOPROLOL TARTRATE 25 MG TAB PO SCH ×2 (08:32→19:51)
[2016-10-05] MEDS: levETIRAcetam 500 MG TAB PO SCH ×2 (08:32→19:51)
--- NOTE | 2016-10-05 09:56 | HHI.PR ---
Subjective Remarks Patient's room is very warm as the thermostat is broken. He will be moved to a different room. Otherwise patient has no acute complaints. Objective Vitals Vital Signs Date Time Temp Pulse Resp B/P Pulse Ox O2 Delivery O2 Flow Rate FiO2 10/05/16 08:00 97.0 58 18 122/79 96 10/04/16 20:00 95.6 58 21 130/95 98 I/O 10/04/16 10/04/16 10/04/16 10/05/16 10/05/16 10/05/16 07:00 15:00 23:00 07:00 15:00 23:00 Intake Total 630 ml 720 ml 480 ml Balance 630 ml 720 ml 480 ml Intake Oral 630 ml 720 ml 480 ml # Voids 2 3 2 1 # Bowel Movements 0 0 1 0 Objective Remarks GENERAL: Well-nourished, well-developed patient in no apparent distress. CARDIOVASCULAR: Regular rate and rhythm. RESPIRATORY: No accessory muscle use. CTAB. GASTROINTESTINAL: Abdomen soft, nontender, nondistended. NEUROLOGICAL: Awake and alert. Normal speech. PSYCHIATRIC: Appropriate mood and affect. Procedures 02/14 with right frontal bur hole and left subclavian line placement 02/15 with right occipital craniectomy with SDH evacuation 02/20 tracheostomy and PEG placement 02/25 left frontal temporoparietal decompressive craniotomy 03/06 PICC 03/29 bone flap replacement Urinary Catheter: No Date of Insertion: Apr 10, 2016 Date of Removal: Apr 22, 2016 Vascular Central Line Catheter: No A/P Problem List: (1) Traumatic brain injury ICD Code: S06.9X9A Status: Acute (2) HTN (hypertension) ICD Code: I10 Status: Chronic (3) Insomnia ICD Code: G47.00 Status: Acute (4) Urinary retention ICD Code: R33.9 Status: Resolved (5) Protein calorie malnutrition ICD Code: E46 Status: Acute (6) Cervical muscle strain ICD Code: S16.1XXA Status: Acute (7) Bilateral impacted cerumen ICD Code: H61.23 Status: Resolved Assessment and Plan S/P traumatic brain injury: Initial head CT with right occipital bone fracture along with intraparenchymal hemorrhage, bilateral subdural hematomas, and subarachnoid hemorrhages. Patient is status post right frontal bur hole, right occipital craniectomy with SDH evacuation, left frontal temporoparietal decompressive craniotomy, and subsequent bone flap replacement. Neurosurgery has signed off. Discharged from PT/speech therapy/occupational therapy as patient has reached maximum benefit Keppra bid for seizure prophylaxis Hypertension: Stable Metoprolol 12.5 mg every 12 hours Monitor BP Protein Calorie malnutrition: Resolved Initially requiring PEG tube, however patient had been eating well and PEG was removed 05/25. Continue current diet Cerumen impaction: Resolved. -S/p Debrox treatment and repeat R ear irrigation. Hearing now improved. Chronic neck pain Continue Tylenol and heat as needed DVT prophylaxis: Patient is ambulating well, low risk Discharge Planning Hope to be accepted to [place] by mid next week when financial situation is resolved. Problem Qualifiers (1) HTN (hypertension): Qualified Code: I10 - Essential hypertension Christina Hoff Oct 05, 2016 09:56
[2016-10-05 21:10] VITALS: BP 131/82; PULSE 52; RESP 20; TEMP 98.3; O2SAT 99
[2016-10-06 08:00] VITALS: BP 115/84; PULSE 59; RESP 19; TEMP 97.5; O2SAT 96
[2016-10-06] MEDS: levETIRAcetam 500 MG TAB PO SCH ×2 (08:30→20:28)
[2016-10-06] MEDS: METOPROLOL TARTRATE 25 MG TAB PO SCH ×2 (08:30→20:28)
[2016-10-06] MEDS: SELENIUM SULFIDE 1% SHAMPOO 207 ML BOTTLE TOPICAL SCH (08:31)
--- NOTE | 2016-10-06 17:16 | HHI.PR ---
Subjective Remarks Patient seen today in follow-up repetition discharge planning status post subdural hematoma. Objective Vitals Vital Signs Date Time Temp Pulse Resp B/P Pulse Ox O2 Delivery O2 Flow Rate FiO2 10/06/16 08:00 97.5 59 19 115/84 96 10/05/16 21:10 98.3 52 20 131/82 99 I/O 10/05/16 10/05/16 10/05/16 10/06/16 10/06/16 10/06/16 07:00 15:00 23:00 07:00 15:00 23:00 Intake Total 480 ml 450 ml 0 ml 800 ml Balance 480 ml 450 ml 0 ml 800 ml Intake Oral 480 ml 450 ml 800 ml IV Total 0 ml # Voids 1 4 3 2 4 # Bowel Movements 0 0 1 Objective Remarks GENERAL: This is a well-nourished, well-developed patient, calm, status post left cranial surgery with jacinto in place CARDIOVASCULAR: Regular rate and rhythm without murmurs, gallops, or rubs. RESPIRATORY: Clear to auscultation. Breath sounds equal bilaterally. No wheezes , rales, or rhonchi. GASTROINTESTINAL: PEG tube Place, Abdomen soft, non-tender, nondistended. Normal active bowel sounds MUSCULOSKELETAL: Right extremity stiffness and edema, otherwise moves all 4 extremities NEURO: Alert & Oriented to person, significant expressive aphasia but attempts to answer questions Procedures 02/14 with right frontal bur hole and left subclavian line placement 02/15 with right occipital craniectomy with SDH evacuation 02/20 tracheostomy and PEG placement 02/25 left frontal temporoparietal decompressive craniotomy 03/06 PICC 03/29 bone flap replacement Date of Insertion: Apr 10, 2016 Date of Removal: Apr 22, 2016 A/P Problem List: (1) Traumatic brain injury ICD Code: S06.9X9A Status: Acute (2) HTN (hypertension) ICD Code: I10 Status: Chronic (3) Insomnia ICD Code: G47.00 Status: Acute (4) Urinary retention ICD Code: R33.9 Status: Resolved (5) Protein calorie malnutrition ICD Code: E46 Status: Acute (6) Cervical muscle strain ICD Code: S16.1XXA Status: Acute (7) Bilateral impacted cerumen ICD Code: H61.23 Status: Resolved Assessment and Plan Hospital day 234 for this patient with continued cognitive impairment Discharge Planning Case management aware of barriers to discharge Problem Qualifiers (1) HTN (hypertension): Qualified Code: I10 - Essential hypertension Stephany Cameron MD Oct 06, 2016 17:16
[2016-10-06 21:19] VITALS: BP 135/92; PULSE 59; RESP 16; TEMP 97.4; O2SAT 98
[2016-10-07 08:00] VITALS: BP 153/91; PULSE 70; RESP 20; TEMP 96.5; O2SAT 97
[2016-10-07] MEDS: SELENIUM SULFIDE 1% SHAMPOO 207 ML BOTTLE TOPICAL SCH (09:24)
[2016-10-07] MEDS: METOPROLOL TARTRATE 25 MG TAB PO SCH ×2 (09:24→20:14)
[2016-10-07] MEDS: levETIRAcetam 500 MG TAB PO SCH ×2 (09:24→20:14)
--- NOTE | 2016-10-07 10:05 | HHI.PR ---
Subjective Remarks No acute complaints. No change in clinical status. Objective Vitals Vital Signs Date Time Temp Pulse Resp B/P Pulse Ox O2 Delivery O2 Flow Rate FiO2 10/07/16 08:00 96.5 70 20 153/91 97 10/06/16 21:19 97.4 59 16 135/92 98 I/O 10/06/16 10/06/16 10/06/16 10/07/16 10/07/16 10/07/16 07:00 15:00 23:00 07:00 15:00 23:00 Intake Total 800 ml Balance 800 ml Intake Oral 800 ml # Voids 2 6 2 # Bowel Movements 1 Objective Remarks GENERAL: Well-nourished, well-developed patient in no apparent distress. CARDIOVASCULAR: Regular rate and rhythm. RESPIRATORY: No accessory muscle use. CTAB. GASTROINTESTINAL: Abdomen soft, nontender, nondistended. NEUROLOGICAL: Awake and alert. Normal speech. PSYCHIATRIC: Appropriate mood and affect. Procedures 02/14 with right frontal bur hole and left subclavian line placement 02/15 with right occipital craniectomy with SDH evacuation 02/20 tracheostomy and PEG placement 02/25 left frontal temporoparietal decompressive craniotomy 03/06 PICC 03/29 bone flap replacement Urinary Catheter: No Date of Insertion: Apr 10, 2016 Date of Removal: Apr 22, 2016 Vascular Central Line Catheter: No A/P Problem List: (1) Traumatic brain injury ICD Code: S06.9X9A Status: Acute (2) HTN (hypertension) ICD Code: I10 Status: Chronic (3) Insomnia ICD Code: G47.00 Status: Acute (4) Urinary retention ICD Code: R33.9 Status: Resolved (5) Protein calorie malnutrition ICD Code: E46 Status: Acute (6) Cervical muscle strain ICD Code: S16.1XXA Status: Acute (7) Bilateral impacted cerumen ICD Code: H61.23 Status: Resolved Assessment and Plan S/P traumatic brain injury: Initial head CT with right occipital bone fracture along with intraparenchymal hemorrhage, bilateral subdural hematomas, and subarachnoid hemorrhages. Patient is status post right frontal bur hole, right occipital craniectomy with SDH evacuation, left frontal temporoparietal decompressive craniotomy, and subsequent bone flap replacement. Neurosurgery has signed off. Discharged from PT/speech therapy/occupational therapy as patient has reached maximum benefit Keppra bid for seizure prophylaxis Hypertension: Mildly elevated BP today of 153/91. Continue Metoprolol 12.5 mg every 12 hours Monitor BP and adjust as needed. Protein Calorie malnutrition: Resolved Initially requiring PEG tube, however patient had been eating well and PEG was removed 05/25. Continue current diet Cerumen impaction: Resolved. -S/p Debrox treatment and repeat R ear irrigation. Hearing now improved. Chronic neck pain Continue Tylenol and heat as needed DVT prophylaxis: Patient is ambulating well, low risk Discharge Planning Hope to be accepted to [place] this week? when financial situation is resolved. Problem Qualifiers (1) HTN (hypertension): Qualified Code: I10 - Essential hypertension Christina Hoff Oct 07, 2016 10:05
[2016-10-07 20:00] VITALS: BP 120/87; PULSE 60; RESP 16; TEMP 97.2; O2SAT 96
[2016-10-08 08:00] VITALS: BP 134/86; PULSE 54; RESP 16; TEMP 96.1; O2SAT 99
[2016-10-08] MEDS: METOPROLOL TARTRATE 25 MG TAB PO SCH ×2 (08:35→21:00)
[2016-10-08] MEDS: levETIRAcetam 500 MG TAB PO SCH ×2 (08:36→20:30)
[2016-10-08] MEDS: SELENIUM SULFIDE 1% SHAMPOO 207 ML BOTTLE TOPICAL SCH (08:36)
--- NOTE | 2016-10-08 10:12 | HHI.PR ---
Subjective Remarks Patient seen and examined today. Patient denies any new complaints. No change in clinical status. Objective Vitals Vital Signs Date Time Temp Pulse Resp B/P Pulse Ox O2 Delivery O2 Flow Rate FiO2 10/07/16 20:00 97.2 60 16 120/87 96 I/O 10/07/16 10/07/16 10/07/16 10/08/16 10/08/16 10/08/16 07:00 15:00 23:00 07:00 15:00 23:00 Intake Total 600 ml 300 ml Balance 600 ml 300 ml Intake Oral 600 ml 300 ml # Voids 2 4 2 Objective Remarks GENERAL: Well-developed, well-nourished, in no acute distress. alert and orientated to person, month, year, place HEENT: Head is normocephalic without any lesions or masses noted. Facial features are symmetric. Eyes: Extraocular muscles are intact. Conjunctivae were clear. NECK: Supple without any masses. Trachea midline no deviation. CARDIAC: Regular rhythm, regular rate. S1/S2 are heard. No murmurs gallops or rubs. LUNGS: Clear to auscultation bilaterally. No wheeze, rhonchi or rales. No use of accessory muscles on inspiration or expiration. ABDOMEN: Soft, nontender. Nondistended. Bowel sounds heard in all 4 quadrants. No organomegaly or masses. Negative rebound, negative guarding EXTREMITIES: No edema, pulses are equal bilaterally. No cyanosis or clubbing NEUROLOGY: Mood and affect appear appropriate. Cranial nerves II through XII grossly intact. Moving all extremities, speech is clear Procedures 02/14 with right frontal bur hole and left subclavian line placement 02/15 with right occipital craniectomy with SDH evacuation 02/20 tracheostomy and PEG placement 02/25 left frontal temporoparietal decompressive craniotomy 03/06 PICC 03/29 bone flap replacement Urinary Catheter: No Date of Insertion: Apr 10, 2016 Date of Removal: Apr 22, 2016 Vascular Central Line Catheter: No A/P Assessment and Plan S/P traumatic brain injury: Initial head CT with right occipital bone fracture along with intraparenchymal hemorrhage, bilateral subdural hematomas, and subarachnoid hemorrhages. Patient is status post right frontal bur hole, right occipital craniectomy with SDH evacuation, left frontal temporoparietal decompressive craniotomy, and subsequent bone flap replacement. Neurosurgery has signed off. Discharged from PT/speech therapy/occupational therapy as patient has reached maximum benefit Keppra bid for seizure prophylaxis Hypertension: Stable Blood pressure stable, Metoprolol 12.5 mg every 12 hours Protein Calorie malnutrition: Resolved Initially requiring PEG tube, however patient had been eating well and PEG was removed 05/25. Continue current diet Prealbumin 30 Chronic neck pain Continue Tylenol and heat as needed DVT prophylaxis: Patient is ambulating well, low risk Discharge Planning Discharge planning per case management, daily patient has been accepted at the [facility], however awaiting financials to be sorted out. 10/04/16 1406 SPOKE WITH LOUANN AT THE [facility] WHO UPDATED ME ON ACCEPTANCE. PATIENT'S [facility] IS MAKING GOOD PROGRESS WITH [facility] AND THE AMOUNT OF INCOME ESTABLISHED ONCE GET NEW CARD FROM [facility]. PER MIGUE THIS HOPEFULLY WILL BE CLEARED AND MID NEXT WEEK THEY HOPE TO ACCEPT WILL CONT TO F/U DAVID ORTIZ LPN/CM/CHARGE Kaushik Mcguire Oct 08, 2016 10:12
[2016-10-08 20:00] VITALS: BP 145/92; PULSE 55; RESP 22; TEMP 95.6; O2SAT 99
[2016-10-09 08:00] VITALS: BP 116/54; PULSE 54; RESP 18; TEMP 97.6; O2SAT 95
--- NOTE | 2016-10-09 08:43 | HHI.PR ---
Subjective Remarks Patient seen and examined today. Patient denies any new complaints. No change in clinical status. Awaiting case management discharge planning Objective Vitals Vital Signs Date Time Temp Pulse Resp B/P Pulse Ox O2 Delivery O2 Flow Rate FiO2 10/08/16 20:00 95.6 55 22 145/92 99 I/O 10/08/16 10/08/16 10/08/16 10/09/16 10/09/16 10/09/16 07:00 15:00 23:00 07:00 15:00 23:00 Intake Total 300 ml 620 ml 480 ml 480 ml Balance 300 ml 620 ml 480 ml 480 ml Intake Oral 300 ml 620 ml 480 ml 480 ml # Voids 2 3 3 1 # Bowel Movements 0 0 0 Objective Remarks GENERAL: Well-developed, well-nourished, in no acute distress. alert and orientated to person, month, year, place HEENT: Head is normocephalic without any lesions or masses noted. Facial features are symmetric. Eyes: Extraocular muscles are intact. Conjunctivae were clear. NECK: Supple without any masses. Trachea midline no deviation. CARDIAC: Regular rhythm, regular rate. S1/S2 are heard. No murmurs gallops or rubs. LUNGS: Clear to auscultation bilaterally. No wheeze, rhonchi or rales. No use of accessory muscles on inspiration or expiration. ABDOMEN: Soft, nontender. Nondistended. Bowel sounds heard in all 4 quadrants. No organomegaly or masses. Negative rebound, negative guarding EXTREMITIES: No edema, pulses are equal bilaterally. No cyanosis or clubbing NEUROLOGY: Mood and affect appear appropriate. Cranial nerves II through XII grossly intact. Moving all extremities, speech is clear Procedures 02/14 with right frontal bur hole and left subclavian line placement 02/15 with right occipital craniectomy with SDH evacuation 02/20 tracheostomy and PEG placement 02/25 left frontal temporoparietal decompressive craniotomy 03/06 PICC 03/29 bone flap replacement Urinary Catheter: No Date of Insertion: Apr 10, 2016 Date of Removal: Apr 22, 2016 Vascular Central Line Catheter: No A/P Assessment and Plan S/P traumatic brain injury: Initial head CT with right occipital bone fracture along with intraparenchymal hemorrhage, bilateral subdural hematomas, and subarachnoid hemorrhages. Patient is status post right frontal bur hole, right occipital craniectomy with SDH evacuation, left frontal temporoparietal decompressive craniotomy, and subsequent bone flap replacement. Neurosurgery has signed off. Discharged from PT/speech therapy/occupational therapy as patient has reached maximum benefit Keppra bid for seizure prophylaxis Hypertension: Stable Blood pressure stable, Discontinued Metoprolol 12.5 mg every 12 hours, secondary to bradycardia Start Norvasc 5 mg daily Protein Calorie malnutrition: Resolved Initially requiring PEG tube, however patient had been eating well and PEG was removed 05/25. Continue current diet Prealbumin 30 Chronic neck pain Continue Tylenol and heat as needed DVT prophylaxis: Patient is ambulating well, low risk Discharge Planning Discharge planning per case management, daily patient has been accepted at the [facility], however awaiting financials to be sorted out. Kaushik Mcguire Oct 09, 2016 08:43
[2016-10-09] MEDS: SELENIUM SULFIDE 1% SHAMPOO 207 ML BOTTLE TOPICAL SCH (09:00)
[2016-10-09] MEDS: amLODIPine BESYLATE 5 MG TAB PO SCH (09:32)
[2016-10-09] MEDS: levETIRAcetam 500 MG TAB PO SCH ×2 (09:32→20:26)
[2016-10-09 20:00] VITALS: BP 137/86; PULSE 64; RESP 20; TEMP 96.1; O2SAT 97
[2016-10-10 08:00] VITALS: BP 120/81; PULSE 68; RESP 16; TEMP 97.1; O2SAT 97
[2016-10-10] MEDS: SELENIUM SULFIDE 1% SHAMPOO 207 ML BOTTLE TOPICAL SCH (08:39)
[2016-10-10] MEDS: amLODIPine BESYLATE 5 MG TAB PO SCH (08:39)
[2016-10-10] MEDS: levETIRAcetam 500 MG TAB PO SCH ×2 (08:39→21:03)
--- NOTE | 2016-10-10 09:40 | HHI.PR ---
Subjective Remarks Patient seen and examined today. Patient denies any new complaints. No change in clinical status. Awaiting case management discharge planning Objective Vitals Vital Signs Date Time Temp Pulse Resp B/P Pulse Ox O2 Delivery O2 Flow Rate FiO2 10/10/16 08:00 97.1 68 16 120/81 97 10/09/16 20:00 96.1 64 20 137/86 97 I/O 10/09/16 10/09/16 10/09/16 10/10/16 10/10/16 10/10/16 07:00 15:00 23:00 07:00 15:00 23:00 Intake Total 480 ml 840 ml 480 ml 480 ml Balance 480 ml 840 ml 480 ml 480 ml Intake Oral 480 ml 840 ml 480 ml 480 ml # Voids 1 4 2 1 # Bowel Movements 0 0 0 0 Objective Remarks GENERAL: Well-developed, well-nourished, in no acute distress. alert and orientated to person, month, year, place HEENT: Head is normocephalic without any lesions or masses noted. Facial features are symmetric. Eyes: Extraocular muscles are intact. Conjunctivae were clear. NECK: Supple without any masses. Trachea midline no deviation. CARDIAC: Regular rhythm, regular rate. S1/S2 are heard. No murmurs gallops or rubs. LUNGS: Clear to auscultation bilaterally. No wheeze, rhonchi or rales. No use of accessory muscles on inspiration or expiration. ABDOMEN: Soft, nontender. Nondistended. Bowel sounds heard in all 4 quadrants. No organomegaly or masses. Negative rebound, negative guarding EXTREMITIES: No edema, pulses are equal bilaterally. No cyanosis or clubbing NEUROLOGY: Mood and affect appear appropriate. Cranial nerves II through XII grossly intact. Moving all extremities, speech is clear Procedures 02/14 with right frontal bur hole and left subclavian line placement 02/15 with right occipital craniectomy with SDH evacuation 02/20 tracheostomy and PEG placement 02/25 left frontal temporoparietal decompressive craniotomy 03/06 PICC 03/29 bone flap replacement Urinary Catheter: No Date of Insertion: Apr 10, 2016 Date of Removal: Apr 22, 2016 Vascular Central Line Catheter: No A/P Assessment and Plan S/P traumatic brain injury: Initial head CT with right occipital bone fracture along with intraparenchymal hemorrhage, bilateral subdural hematomas, and subarachnoid hemorrhages. Patient is status post right frontal bur hole, right occipital craniectomy with SDH evacuation, left frontal temporoparietal decompressive craniotomy, and subsequent bone flap replacement. Neurosurgery has signed off. Discharged from PT/speech therapy/occupational therapy as patient has reached maximum benefit Keppra bid for seizure prophylaxis Hypertension: Stable Blood pressure stable, Discontinued Metoprolol 12.5 mg every 12 hours, secondary to bradycardia Norvasc 5 mg daily Protein Calorie malnutrition: Resolved Initially requiring PEG tube, however patient had been eating well and PEG was removed 05/25. Continue current diet Prealbumin 30 Chronic neck pain Continue Tylenol and heat as needed DVT prophylaxis: Patient is ambulating well, low risk Discharge Planning Discharge planning per case management, daily patient has been accepted at the [facility], however awaiting financials to be sorted out. Kaushik Mcguire Oct 10, 2016 09:40
[2016-10-10 20:00] VITALS: BP 119/81; PULSE 102; RESP 20; TEMP 97.6; O2SAT 94
[2016-10-11 08:00] VITALS: BP 134/89; PULSE 72; RESP 18; TEMP 97.8; O2SAT 100
[2016-10-11] MEDS: levETIRAcetam 500 MG TAB PO SCH ×2 (08:33→20:42)
[2016-10-11] MEDS: amLODIPine BESYLATE 5 MG TAB PO SCH (08:33)
[2016-10-11] MEDS: SELENIUM SULFIDE 1% SHAMPOO 207 ML BOTTLE TOPICAL SCH (08:34)
--- NOTE | 2016-10-11 08:44 | HHI.PR ---
Subjective Remarks Patient seen and examined today. Patient denies any new complaints. No change in clinical status. Awaiting case management for discharge planning Objective Vitals Vital Signs Date Time Temp Pulse Resp B/P Pulse Ox O2 Delivery O2 Flow Rate FiO2 10/10/16 20:00 97.6 102 20 119/81 94 I/O 10/10/16 10/10/16 10/10/16 10/11/16 10/11/16 10/11/16 07:00 15:00 23:00 07:00 15:00 23:00 Intake Total 480 ml 1170 ml 420 ml Balance 480 ml 1170 ml 420 ml Intake Oral 480 ml 1170 ml 420 ml # Voids 1 3 2 # Bowel Movements 0 1 0 Objective Remarks GENERAL: Well-developed, well-nourished, in no acute distress. alert and orientated to person, month, year, place HEENT: Head is normocephalic without any lesions or masses noted. Facial features are symmetric. Eyes: Extraocular muscles are intact. Conjunctivae were clear. NECK: Supple without any masses. Trachea midline no deviation. CARDIAC: Regular rhythm, regular rate. S1/S2 are heard. No murmurs gallops or rubs. LUNGS: Clear to auscultation bilaterally. No wheeze, rhonchi or rales. No use of accessory muscles on inspiration or expiration. ABDOMEN: Soft, nontender. Nondistended. Bowel sounds heard in all 4 quadrants. No organomegaly or masses. Negative rebound, negative guarding EXTREMITIES: No edema, pulses are equal bilaterally. No cyanosis or clubbing NEUROLOGY: Mood and affect appear appropriate. Cranial nerves II through XII grossly intact. Moving all extremities, speech is clear Procedures 02/14 with right frontal bur hole and left subclavian line placement 02/15 with right occipital craniectomy with SDH evacuation 02/20 tracheostomy and PEG placement 02/25 left frontal temporoparietal decompressive craniotomy 03/06 PICC 03/29 bone flap replacement Urinary Catheter: No Date of Insertion: Apr 10, 2016 Date of Removal: Apr 22, 2016 Vascular Central Line Catheter: No A/P Assessment and Plan S/P traumatic brain injury: Initial head CT with right occipital bone fracture along with intraparenchymal hemorrhage, bilateral subdural hematomas, and subarachnoid hemorrhages. Patient is status post right frontal bur hole, right occipital craniectomy with SDH evacuation, left frontal temporoparietal decompressive craniotomy, and subsequent bone flap replacement. Neurosurgery has signed off. Discharged from PT/speech therapy/occupational therapy as patient has reached maximum benefit Keppra bid for seizure prophylaxis Hypertension: Stable Blood pressure stable, Discontinued Metoprolol 12.5 mg every 12 hours, secondary to bradycardia Norvasc 5 mg daily Protein Calorie malnutrition: Resolved Initially requiring PEG tube, however patient had been eating well and PEG was removed 05/25. Continue current diet Prealbumin 30 Chronic neck pain Continue Tylenol and heat as needed DVT prophylaxis: Patient is ambulating well, low risk Discharge Planning Discharge planning per case management, daily patient has been accepted at the [facility], however awaiting financials to be sorted out. Kaushik Mcguire Oct 11, 2016 08:44
[2016-10-11 20:00] VITALS: BP 130/76; PULSE 69; RESP 18; TEMP 97.9; O2SAT 98
[2016-10-12 08:00] VITALS: BP 112/94; PULSE 74; RESP 18; TEMP 96.6; O2SAT 97
[2016-10-12] MEDS: amLODIPine BESYLATE 5 MG TAB PO SCH (08:56)
[2016-10-12] MEDS: levETIRAcetam 500 MG TAB PO SCH ×2 (08:56→20:26)
[2016-10-12] MEDS: SELENIUM SULFIDE 1% SHAMPOO 207 ML BOTTLE TOPICAL SCH (08:57)
--- NOTE | 2016-10-12 10:15 | HHI.PR ---
Subjective Remarks Patient seen and examined today. Patient denies any new complaints. No change in clinical status. Awaiting case management for discharge planning. Objective Vitals Vital Signs Date Time Temp Pulse Resp B/P Pulse Ox O2 Delivery O2 Flow Rate FiO2 10/12/16 08:00 96.6 74 18 112/94 97 10/11/16 20:00 97.9 69 18 130/76 98 I/O 10/11/16 10/11/16 10/11/16 10/12/16 10/12/16 10/12/16 07:00 15:00 23:00 07:00 15:00 23:00 Intake Total 940 ml 240 ml Balance 940 ml 240 ml Intake Oral 940 ml 240 ml # Voids 5 2 2 Objective Remarks GENERAL: Well-developed, well-nourished, in no acute distress. alert and orientated to person, month, year, place HEENT: Head is normocephalic without any lesions or masses noted. Facial features are symmetric. Eyes: Extraocular muscles are intact. Conjunctivae were clear. NECK: Supple without any masses. Trachea midline no deviation. CARDIAC: Regular rhythm, regular rate. S1/S2 are heard. No murmurs gallops or rubs. LUNGS: Clear to auscultation bilaterally. No wheeze, rhonchi or rales. No use of accessory muscles on inspiration or expiration. ABDOMEN: Soft, nontender. Nondistended. Bowel sounds heard in all 4 quadrants. No organomegaly or masses. Negative rebound, negative guarding EXTREMITIES: No edema, pulses are equal bilaterally. No cyanosis or clubbing NEUROLOGY: Mood and affect appear appropriate. Cranial nerves II through XII grossly intact. Moving all extremities, speech is clear Procedures 02/14 with right frontal bur hole and left subclavian line placement 02/15 with right occipital craniectomy with SDH evacuation 02/20 tracheostomy and PEG placement 02/25 left frontal temporoparietal decompressive craniotomy 03/06 PICC 03/29 bone flap replacement Urinary Catheter: No Date of Insertion: Apr 10, 2016 Date of Removal: Apr 22, 2016 Vascular Central Line Catheter: No A/P Assessment and Plan S/P traumatic brain injury: Initial head CT with right occipital bone fracture along with intraparenchymal hemorrhage, bilateral subdural hematomas, and subarachnoid hemorrhages. Patient is status post right frontal bur hole, right occipital craniectomy with SDH evacuation, left frontal temporoparietal decompressive craniotomy, and subsequent bone flap replacement. Neurosurgery has signed off. Discharged from PT/speech therapy/occupational therapy as patient has reached maximum benefit Keppra bid for seizure prophylaxis Hypertension: Stable Blood pressure stable, Discontinued Metoprolol 12.5 mg every 12 hours, secondary to bradycardia Norvasc 5 mg daily Protein Calorie malnutrition: Resolved Initially requiring PEG tube, however patient had been eating well and PEG was removed 05/25. Continue current diet Prealbumin 30 Chronic neck pain Continue Tylenol and heat as needed DVT prophylaxis: Patient is ambulating well, low risk Discharge Planning Discharge planning per case management, daily patient has been accepted at the [facility], however awaiting financials to be sorted out. Kaushik Mcguire Oct 12, 2016 10:15
[2016-10-12 20:00] VITALS: BP 120/88; PULSE 62; RESP 16; TEMP 96.2; O2SAT 97
[2016-10-13 08:00] VITALS: BP 130/89; PULSE 72; RESP 18; TEMP 97.8; O2SAT 97
[2016-10-13] MEDS: levETIRAcetam 500 MG TAB PO SCH ×2 (08:57→21:21)
[2016-10-13] MEDS: amLODIPine BESYLATE 5 MG TAB PO SCH (08:58)
[2016-10-13] MEDS: SELENIUM SULFIDE 1% SHAMPOO 207 ML BOTTLE TOPICAL SCH (09:00)
--- NOTE | 2016-10-13 14:31 | HHI.PR ---
Subjective Remarks Patient seen and examined today. Patient denies any new complaints. No change in clinical status. Awaiting case management for discharge planning Objective Vitals Vital Signs Date Time Temp Pulse Resp B/P Pulse Ox O2 Delivery O2 Flow Rate FiO2 10/13/16 08:00 97.8 72 18 130/89 97 10/12/16 20:00 96.2 62 16 120/88 97 I/O 10/12/16 10/12/16 10/12/16 10/13/16 10/13/16 10/13/16 07:00 15:00 23:00 07:00 15:00 23:00 Intake Total 730 ml 480 ml 240 ml Balance 730 ml 480 ml 240 ml Intake Oral 730 ml 480 ml 240 ml # Voids 2 3 2 1 # Bowel Movements 0 0 0 Objective Remarks GENERAL: Well-developed, well-nourished, in no acute distress. alert and orientated to person, month, year, place HEENT: Head is normocephalic without any lesions or masses noted. Facial features are symmetric. Eyes: Extraocular muscles are intact. Conjunctivae were clear. NECK: Supple without any masses. Trachea midline no deviation. CARDIAC: Regular rhythm, regular rate. S1/S2 are heard. No murmurs gallops or rubs. LUNGS: Clear to auscultation bilaterally. No wheeze, rhonchi or rales. No use of accessory muscles on inspiration or expiration. ABDOMEN: Soft, nontender. Nondistended. Bowel sounds heard in all 4 quadrants. No organomegaly or masses. Negative rebound, negative guarding EXTREMITIES: No edema, pulses are equal bilaterally. No cyanosis or clubbing NEUROLOGY: Mood and affect appear appropriate. Cranial nerves II through XII grossly intact. Moving all extremities, speech is clear Procedures 02/14 with right frontal bur hole and left subclavian line placement 02/15 with right occipital craniectomy with SDH evacuation 02/20 tracheostomy and PEG placement 02/25 left frontal temporoparietal decompressive craniotomy 03/06 PICC 03/29 bone flap replacement Urinary Catheter: No Date of Insertion: Apr 10, 2016 Date of Removal: Apr 22, 2016 Vascular Central Line Catheter: No A/P Assessment and Plan S/P traumatic brain injury: Initial head CT with right occipital bone fracture along with intraparenchymal hemorrhage, bilateral subdural hematomas, and subarachnoid hemorrhages. Patient is status post right frontal bur hole, right occipital craniectomy with SDH evacuation, left frontal temporoparietal decompressive craniotomy, and subsequent bone flap replacement. Neurosurgery has signed off. Discharged from PT/speech therapy/occupational therapy as patient has reached maximum benefit Keppra bid for seizure prophylaxis Hypertension: Stable Blood pressure stable, Discontinued Metoprolol 12.5 mg every 12 hours, secondary to bradycardia Norvasc 5 mg daily Protein Calorie malnutrition: Resolved Initially requiring PEG tube, however patient had been eating well and PEG was removed 05/25. Continue current diet Prealbumin 30 Chronic neck pain Continue Tylenol and heat as needed DVT prophylaxis: Patient is ambulating well, low risk Discharge Planning Discharge planning per case management, daily patient has been accepted at the [facility], however awaiting financials to be sorted out. Kaushik Mcguire Oct 13, 2016 14:31
[2016-10-13 20:00] VITALS: BP 130/87; PULSE 61; RESP 16; TEMP 96.6; O2SAT 98
[2016-10-14 08:00] VITALS: BP 141/82; PULSE 69; RESP 20; TEMP 97.2; O2SAT 96
[2016-10-14] MEDS: amLODIPine BESYLATE 5 MG TAB PO SCH (08:21)
[2016-10-14] MEDS: levETIRAcetam 500 MG TAB PO SCH ×2 (08:21→20:49)
[2016-10-14] MEDS: SELENIUM SULFIDE 1% SHAMPOO 207 ML BOTTLE TOPICAL SCH (08:23)
--- NOTE | 2016-10-14 12:02 | HHI.PR ---
Subjective Remarks Patient seen and examined today. Patient has any new complaints. No change in clinical status. Awaiting case management for discharge planning Objective Vitals Vital Signs Date Time Temp Pulse Resp B/P Pulse Ox O2 Delivery O2 Flow Rate FiO2 10/14/16 08:00 97.2 69 20 141/82 96 10/13/16 20:00 96.6 61 16 130/87 98 I/O 10/13/16 10/13/16 10/13/16 10/14/16 10/14/16 10/14/16 07:00 15:00 23:00 07:00 15:00 23:00 Intake Total 240 ml 700 ml 480 ml 480 ml Balance 240 ml 700 ml 480 ml 480 ml Intake Oral 240 ml 700 ml 480 ml 480 ml # Voids 1 2 4 2 # Bowel Movements 0 0 0 0 Objective Remarks GENERAL: Well-developed, well-nourished, in no acute distress. alert and orientated to person, month, year, place HEENT: Head is normocephalic without any lesions or masses noted. Facial features are symmetric. Eyes: Extraocular muscles are intact. Conjunctivae were clear. NECK: Supple without any masses. Trachea midline no deviation. CARDIAC: Regular rhythm, regular rate. S1/S2 are heard. No murmurs gallops or rubs. LUNGS: Clear to auscultation bilaterally. No wheeze, rhonchi or rales. No use of accessory muscles on inspiration or expiration. ABDOMEN: Soft, nontender. Nondistended. Bowel sounds heard in all 4 quadrants. No organomegaly or masses. Negative rebound, negative guarding EXTREMITIES: No edema, pulses are equal bilaterally. No cyanosis or clubbing NEUROLOGY: Mood and affect appear appropriate. Cranial nerves II through XII grossly intact. Moving all extremities, speech is clear Procedures 02/14 with right frontal bur hole and left subclavian line placement 02/15 with right occipital craniectomy with SDH evacuation 02/20 tracheostomy and PEG placement 02/25 left frontal temporoparietal decompressive craniotomy 03/06 PICC 03/29 bone flap replacement Urinary Catheter: No Date of Insertion: Apr 10, 2016 Date of Removal: Apr 22, 2016 Vascular Central Line Catheter: No A/P Assessment and Plan S/P traumatic brain injury: Initial head CT with right occipital bone fracture along with intraparenchymal hemorrhage, bilateral subdural hematomas, and subarachnoid hemorrhages. Patient is status post right frontal bur hole, right occipital craniectomy with SDH evacuation, left frontal temporoparietal decompressive craniotomy, and subsequent bone flap replacement. Neurosurgery has signed off. Discharged from PT/speech therapy/occupational therapy as patient has reached maximum benefit Keppra bid for seizure prophylaxis Hypertension: Stable Blood pressure stable, Discontinued Metoprolol 12.5 mg every 12 hours, secondary to bradycardia Norvasc 5 mg daily Protein Calorie malnutrition: Resolved Initially requiring PEG tube, however patient had been eating well and PEG was removed 05/25. Continue current diet Prealbumin 30 Chronic neck pain Continue Tylenol and heat as needed DVT prophylaxis: Patient is ambulating well, low risk Discharge Planning Discharge planning per case management, daily patient has been accepted at the [facility], however awaiting financials to be sorted out. Kaushik Mcguire Oct 14, 2016 12:02
--- NOTE | 2016-10-14 14:25 | RADHPO ---
EXAM DATE/TIME: 10/14/2016 14:13 [place] COMPARISON: CHEST SINGLE AP, March 27, 2016, 3:46. INDICATIONS : Shortness of breath. MEDICAL HISTORY : None. SURGICAL HISTORY : None. ENCOUNTER: Initial ACUITY: 1 day PAIN SCORE: 0/10 LOCATION: Bilateral chest FINDINGS: A single view of the chest demonstrates the lungs to be symmetrically aerated without evidence of mas s, infiltrate or effusion. The cardiomediastinal contours are unremarkable. Osseous structures are intact. CONCLUSION: No acute disease. No significant change has occurred. Laci Rodriguez MD on October 14, 2016 at 14:23 Board Certified Radiologist. This report was verified electronically.
[2016-10-14 20:00] VITALS: BP 124/83; PULSE 64; RESP 18; TEMP 96.6; O2SAT 97
[2016-10-15 08:00] VITALS: BP 131/83; PULSE 67; RESP 18; TEMP 97.3; O2SAT 97
[2016-10-15] MEDS: amLODIPine BESYLATE 5 MG TAB PO SCH (09:05)
[2016-10-15] MEDS: levETIRAcetam 500 MG TAB PO SCH ×2 (09:06→20:19)
[2016-10-15] MEDS: SELENIUM SULFIDE 1% SHAMPOO 207 ML BOTTLE TOPICAL SCH (09:06)
--- NOTE | 2016-10-15 16:48 | HHI.PR ---
Subjective Remarks Apparently Dr. Driscoll, bread room hand, came to evaluate the patient yesterday. He was not consulted. The patient states he underwent a chest x-ray. It is unclear why this was performed. Apparently PFTs and ABG was also ordered but these were canceled. The patient admits to his normal morning nasal congestion and only minor cough. He has had no new symptoms. Objective Vitals Vital Signs Date Time Temp Pulse Resp B/P Pulse Ox O2 Delivery O2 Flow Rate FiO2 10/15/16 08:00 97.3 67 18 131/83 97 10/14/16 20:00 96.6 64 18 124/83 97 I/O 10/14/16 10/14/16 10/14/16 10/15/16 10/15/16 10/15/16 07:00 15:00 23:00 07:00 15:00 23:00 Intake Total 480 ml 1000 ml 600 ml 200 ml Balance 480 ml 1000 ml 600 ml 200 ml Intake Oral 480 ml 1000 ml 600 ml 200 ml # Voids 2 4 2 1 3 # Bowel Movements 0 0 Objective Remarks GENERAL: Well-nourished, well-developed patient in no apparent distress. CARDIOVASCULAR: Regular rate and rhythm. RESPIRATORY: No accessory muscle use. CTAB. GASTROINTESTINAL: Abdomen soft, nontender, nondistended. NEUROLOGICAL: Awake and alert. Normal speech. PSYCHIATRIC: Appropriate mood and affect. Procedures 02/14 with right frontal bur hole and left subclavian line placement 02/15 with right occipital craniectomy with SDH evacuation 02/20 tracheostomy and PEG placement 02/25 left frontal temporoparietal decompressive craniotomy 03/06 PICC 03/29 bone flap replacement Urinary Catheter: No Date of Insertion: Apr 10, 2016 Date of Removal: Apr 22, 2016 Vascular Central Line Catheter: No A/P Problem List: (1) Traumatic brain injury ICD Code: S06.9X9A Status: Acute (2) HTN (hypertension) ICD Code: I10 Status: Chronic (3) Insomnia ICD Code: G47.00 Status: Acute (4) Urinary retention ICD Code: R33.9 Status: Resolved (5) Protein calorie malnutrition ICD Code: E46 Status: Acute (6) Cervical muscle strain ICD Code: S16.1XXA Status: Acute (7) Bilateral impacted cerumen ICD Code: H61.23 Status: Resolved Assessment and Plan S/P traumatic brain injury: Initial head CT with right occipital bone fracture along with intraparenchymal hemorrhage, bilateral subdural hematomas, and subarachnoid hemorrhages. Patient is status post right frontal bur hole, right occipital craniectomy with SDH evacuation, left frontal temporoparietal decompressive craniotomy, and subsequent bone flap replacement. Neurosurgery has signed off. Discharged from PT/speech therapy/occupational therapy as patient has reached maximum benefit Keppra bid for seizure prophylaxis Hypertension: Continue Metoprolol 12.5 mg every 12 hours Monitor BP and adjust as needed. Protein Calorie malnutrition: Resolved Initially requiring PEG tube, however patient had been eating well and PEG was removed 05/25. Continue current diet Cerumen impaction: Resolved. -S/p Debrox treatment and repeat R ear irrigation. Hearing now improved. Chronic neck pain Continue Tylenol and heat as needed DVT prophylaxis: Patient is ambulating well, low risk Patient had chest x-ray performed yesterday ordered by bread room hand, but it is unclear why as pulmonology was not consulted. Chest x-ray is normal. Lung exam normal. Discharge Planning Hope to be accepted to [facility] when financial situation is resolved. I spoke with healthcare surrogate who states he is working on this. Problem Qualifiers (1) HTN (hypertension): Qualified Code: I10 - Essential hypertension Christina Hoff Oct 15, 2016 16:48
[2016-10-15 20:00] VITALS: BP 149/94; PULSE 68; RESP 20; TEMP 96.4; O2SAT 97
[2016-10-16] MEDS: amLODIPine BESYLATE 5 MG TAB PO SCH (07:54)
[2016-10-16] MEDS: levETIRAcetam 500 MG TAB PO SCH ×2 (07:54→21:33)
[2016-10-16] MEDS: SELENIUM SULFIDE 1% SHAMPOO 207 ML BOTTLE TOPICAL SCH (07:55)
[2016-10-16 08:00] VITALS: BP 125/92; PULSE 57; RESP 20; TEMP 96.5; O2SAT 99
--- NOTE | 2016-10-16 09:02 | HHI.PR ---
Subjective Remarks No acute complaints. No change in clinical status. Objective Vitals Vital Signs Date Time Temp Pulse Resp B/P Pulse Ox O2 Delivery O2 Flow Rate FiO2 10/16/16 08:00 96.5 57 20 125/92 99 10/15/16 20:00 96.4 68 20 149/94 97 I/O 10/15/16 10/15/16 10/15/16 10/16/16 10/16/16 10/16/16 07:00 15:00 23:00 07:00 15:00 23:00 Intake Total 200 ml 480 ml 240 ml Balance 200 ml 480 ml 240 ml Intake Oral 200 ml 480 ml 240 ml # Voids 1 5 2 # Bowel Movements 1 Objective Remarks GENERAL: Well-nourished, well-developed patient in no apparent distress. CARDIOVASCULAR: Regular rate and rhythm. RESPIRATORY: No accessory muscle use. CTAB. GASTROINTESTINAL: Abdomen soft, nontender, nondistended. NEUROLOGICAL: Awake and alert. Normal speech. PSYCHIATRIC: Appropriate mood and affect. Procedures 02/14 with right frontal bur hole and left subclavian line placement 02/15 with right occipital craniectomy with SDH evacuation 02/20 tracheostomy and PEG placement 02/25 left frontal temporoparietal decompressive craniotomy 03/06 PICC 03/29 bone flap replacement Urinary Catheter: No Date of Insertion: Apr 10, 2016 Date of Removal: Apr 22, 2016 Vascular Central Line Catheter: No A/P Problem List: (1) Traumatic brain injury ICD Code: S06.9X9A Status: Acute (2) HTN (hypertension) ICD Code: I10 Status: Chronic (3) Insomnia ICD Code: G47.00 Status: Acute (4) Urinary retention ICD Code: R33.9 Status: Resolved (5) Protein calorie malnutrition ICD Code: E46 Status: Acute (6) Cervical muscle strain ICD Code: S16.1XXA Status: Acute (7) Bilateral impacted cerumen ICD Code: H61.23 Status: Resolved Assessment and Plan S/P traumatic brain injury: Initial head CT with right occipital bone fracture along with intraparenchymal hemorrhage, bilateral subdural hematomas, and subarachnoid hemorrhages. Patient is status post right frontal bur hole, right occipital craniectomy with SDH evacuation, left frontal temporoparietal decompressive craniotomy, and subsequent bone flap replacement. Neurosurgery has signed off. Discharged from PT/speech therapy/occupational therapy as patient has reached maximum benefit Keppra bid for seizure prophylaxis Hypertension: Continue Metoprolol 12.5 mg every 12 hours Monitor BP and adjust as needed. Protein Calorie malnutrition: Resolved Initially requiring PEG tube, however patient had been eating well and PEG was removed 05/25. Continue current diet Cerumen impaction: Resolved. -S/p Debrox treatment and repeat R ear irrigation. Hearing now improved. Chronic neck pain Continue Tylenol and heat as needed DVT prophylaxis: Patient is ambulating well, low risk Discharge Planning Hope to be accepted to [facility] when financial situation is resolved. I spoke with healthcare surrogate on 10/15 who states he is working on this. Problem Qualifiers (1) HTN (hypertension): Qualified Code: I10 - Essential hypertension Christina Hoff Oct 16, 2016 09:02
[2016-10-16 20:00] VITALS: BP 137/95; PULSE 58; RESP 16; TEMP 95.5; O2SAT 100
[2016-10-17 08:00] VITALS: BP 124/80; PULSE 58; RESP 18; TEMP 96.3; O2SAT 99
[2016-10-17] MEDS: amLODIPine BESYLATE 5 MG TAB PO SCH (09:23)
[2016-10-17] MEDS: levETIRAcetam 500 MG TAB PO SCH ×2 (09:23→19:59)
[2016-10-17] MEDS: SELENIUM SULFIDE 1% SHAMPOO 207 ML BOTTLE TOPICAL SCH (09:24)
--- NOTE | 2016-10-17 12:22 | HHI.PR ---
Subjective Remarks No acute complaints. No change in clinical status. Objective Vitals Vital Signs Date Time Temp Pulse Resp B/P Pulse Ox O2 Delivery O2 Flow Rate FiO2 10/17/16 08:00 96.3 58 18 124/80 99 10/16/16 20:00 95.5 58 16 137/95 100 I/O 10/16/16 10/16/16 10/16/16 10/17/16 10/17/16 10/17/16 07:00 15:00 23:00 07:00 15:00 23:00 Intake Total 240 ml 480 ml 480 ml 480 ml Balance 240 ml 480 ml 480 ml 480 ml Intake Oral 240 ml 480 ml 480 ml 480 ml # Voids 2 3 2 1 # Bowel Movements 0 0 0 Objective Remarks GENERAL: Well-nourished, well-developed patient in no apparent distress. CARDIOVASCULAR: Regular rate and rhythm. RESPIRATORY: No accessory muscle use. CTAB. GASTROINTESTINAL: Abdomen soft, nontender, nondistended. NEUROLOGICAL: Awake and alert. Normal speech. Ambulating well with cane. PSYCHIATRIC: Appropriate mood and affect. Procedures 02/14 with right frontal bur hole and left subclavian line placement 02/15 with right occipital craniectomy with SDH evacuation 02/20 tracheostomy and PEG placement 02/25 left frontal temporoparietal decompressive craniotomy 03/06 PICC 03/29 bone flap replacement Urinary Catheter: No Date of Insertion: Apr 10, 2016 Date of Removal: Apr 22, 2016 Vascular Central Line Catheter: No A/P Problem List: (1) Traumatic brain injury ICD Code: S06.9X9A Status: Acute (2) HTN (hypertension) ICD Code: I10 Status: Chronic (3) Insomnia ICD Code: G47.00 Status: Acute (4) Urinary retention ICD Code: R33.9 Status: Resolved (5) Protein calorie malnutrition ICD Code: E46 Status: Acute (6) Cervical muscle strain ICD Code: S16.1XXA Status: Acute (7) Bilateral impacted cerumen ICD Code: H61.23 Status: Resolved Assessment and Plan S/P traumatic brain injury: Initial head CT with right occipital bone fracture along with intraparenchymal hemorrhage, bilateral subdural hematomas, and subarachnoid hemorrhages. Patient is status post right frontal bur hole, right occipital craniectomy with SDH evacuation, left frontal temporoparietal decompressive craniotomy, and subsequent bone flap replacement. Neurosurgery has signed off. Discharged from PT/speech therapy/occupational therapy as patient has reached maximum benefit Keppra bid for seizure prophylaxis Hypertension: Continue Metoprolol 12.5 mg every 12 hours Monitor BP and adjust as needed. Protein Calorie malnutrition: Resolved Initially requiring PEG tube, however patient had been eating well and PEG was removed 05/25. Continue current diet Cerumen impaction: Resolved. -S/p Debrox treatment and repeat R ear irrigation. Hearing now improved. Chronic neck pain Continue Tylenol and heat as needed DVT prophylaxis: Patient is ambulating well, low risk Discharge Planning Hope to be accepted to [facility] when financial situation is resolved. I spoke with healthcare surrogate on 10/15 who states he is working on this. 10/17/16: per , waiting on SNF to accept. Problem Qualifiers (1) HTN (hypertension): Qualified Code: I10 - Essential hypertension Christina Hoff Oct 17, 2016 12:22
[2016-10-17 20:00] VITALS: BP 117/84; PULSE 61; RESP 14; TEMP 98; O2SAT 98
[2016-10-18 08:00] VITALS: BP 141/92; PULSE 59; RESP 17; TEMP 97.8; O2SAT 99
[2016-10-18] MEDS: SELENIUM SULFIDE 1% SHAMPOO 207 ML BOTTLE TOPICAL SCH (09:10)
[2016-10-18] MEDS: amLODIPine BESYLATE 5 MG TAB PO SCH (09:10)
[2016-10-18] MEDS: levETIRAcetam 500 MG TAB PO SCH ×2 (09:10→21:22)
--- NOTE | 2016-10-18 13:20 | HHI.PR ---
Subjective Remarks No acute complaints. No change in clinical status. Objective Vitals Vital Signs Date Time Temp Pulse Resp B/P Pulse Ox O2 Delivery O2 Flow Rate FiO2 10/18/16 08:00 97.8 59 17 141/92 99 10/17/16 20:00 98.0 61 14 117/84 98 I/O 10/17/16 10/17/16 10/17/16 10/18/16 10/18/16 10/18/16 07:00 15:00 23:00 07:00 15:00 23:00 Intake Total 480 ml 620 ml 480 ml 240 ml 320 ml Output Total 2 ml Balance 480 ml 620 ml 478 ml 240 ml 320 ml Intake Oral 480 ml 620 ml 480 ml 240 ml 320 ml Output Urine Total 2 ml # Voids 1 4 1 # Bowel Movements 0 1 0 0 Objective Remarks GENERAL: Well-nourished, well-developed patient in no apparent distress. CARDIOVASCULAR: Regular rate and rhythm. RESPIRATORY: No accessory muscle use. CTAB. GASTROINTESTINAL: Abdomen soft, nontender, nondistended. NEUROLOGICAL: Awake and alert. Normal speech. PSYCHIATRIC: Appropriate mood and affect. Procedures 02/14 with right frontal bur hole and left subclavian line placement 02/15 with right occipital craniectomy with SDH evacuation 02/20 tracheostomy and PEG placement 02/25 left frontal temporoparietal decompressive craniotomy 03/06 PICC 03/29 bone flap replacement Urinary Catheter: No Date of Insertion: Apr 10, 2016 Date of Removal: Apr 22, 2016 Vascular Central Line Catheter: No A/P Problem List: (1) Traumatic brain injury ICD Code: S06.9X9A Status: Acute (2) HTN (hypertension) ICD Code: I10 Status: Chronic (3) Insomnia ICD Code: G47.00 Status: Acute (4) Urinary retention ICD Code: R33.9 Status: Resolved (5) Protein calorie malnutrition ICD Code: E46 Status: Acute (6) Cervical muscle strain ICD Code: S16.1XXA Status: Acute (7) Bilateral impacted cerumen ICD Code: H61.23 Status: Resolved Assessment and Plan S/P traumatic brain injury: Initial head CT with right occipital bone fracture along with intraparenchymal hemorrhage, bilateral subdural hematomas, and subarachnoid hemorrhages. Patient is status post right frontal bur hole, right occipital craniectomy with SDH evacuation, left frontal temporoparietal decompressive craniotomy, and subsequent bone flap replacement. Neurosurgery has signed off. Discharged from PT/speech therapy/occupational therapy as patient has reached maximum benefit Keppra bid for seizure prophylaxis Hypertension: BP 141/92 this morning, but normal yesterday; fluctuates. Continue Metoprolol 12.5 mg every 12 hours Monitor BP and adjust as needed. Protein Calorie malnutrition: Resolved Initially requiring PEG tube, however patient had been eating well and PEG was removed 05/25. Continue current diet Cerumen impaction: Resolved. -S/p Debrox treatment and repeat R ear irrigation. Hearing now improved. Chronic neck pain Continue Tylenol and heat as needed DVT prophylaxis: Patient is ambulating well, low risk Discharge Planning Hope to be accepted to [facility] when financial situation is resolved. I spoke with healthcare surrogate on 10/15 who states he is working on this. 10/17/16: per CM, waiting on SNF to accept. 10/18/16: Spoke with CM today. Hope to discharge soon. Problem Qualifiers (1) HTN (hypertension): Qualified Code: I10 - Essential hypertension Christina Hoff Oct 18, 2016 13:20
[2016-10-18 20:00] VITALS: BP 120/83; PULSE 56; RESP 18; TEMP 96; O2SAT 96
[2016-10-19 08:00] VITALS: BP 134/84; PULSE 60; RESP 16; TEMP 97.7; O2SAT 100
[2016-10-19] MEDS: levETIRAcetam 500 MG TAB PO SCH ×2 (08:40→21:29)
[2016-10-19] MEDS: amLODIPine BESYLATE 5 MG TAB PO SCH (08:40)
[2016-10-19] MEDS: SELENIUM SULFIDE 1% SHAMPOO 207 ML BOTTLE TOPICAL SCH (08:41)
--- NOTE | 2016-10-19 11:41 | HHI.PR ---
Subjective Remarks No acute complaints. No change in clinical status. Objective Vitals Vital Signs Date Time Temp Pulse Resp B/P Pulse Ox O2 Delivery O2 Flow Rate FiO2 10/19/16 08:00 97.7 60 16 134/84 100 10/18/16 20:00 96.0 56 18 120/83 96 I/O 10/18/16 10/18/16 10/18/16 10/19/16 10/19/16 10/19/16 07:00 15:00 23:00 07:00 15:00 23:00 Intake Total 240 ml 320 ml 340 ml Balance 240 ml 320 ml 340 ml Intake Oral 240 ml 320 ml 340 ml # Voids 1 # Bowel Movements 0 Objective Remarks GENERAL: Well-nourished, well-developed patient in no apparent distress. CARDIOVASCULAR: Regular rate and rhythm. RESPIRATORY: No accessory muscle use. CTAB. GASTROINTESTINAL: Normoactive bowel sounds. Abdomen soft, nontender, nondistended. NEUROLOGICAL: Awake and alert. Normal speech. PSYCHIATRIC: Appropriate mood and affect. Procedures 02/14 with right frontal bur hole and left subclavian line placement 02/15 with right occipital craniectomy with SDH evacuation 02/20 tracheostomy and PEG placement 02/25 left frontal temporoparietal decompressive craniotomy 03/06 PICC 03/29 bone flap replacement Urinary Catheter: No Date of Insertion: Apr 10, 2016 Date of Removal: Apr 22, 2016 Vascular Central Line Catheter: No A/P Problem List: (1) Traumatic brain injury ICD Code: S06.9X9A Status: Acute (2) HTN (hypertension) ICD Code: I10 Status: Chronic (3) Insomnia ICD Code: G47.00 Status: Acute (4) Urinary retention ICD Code: R33.9 Status: Resolved (5) Protein calorie malnutrition ICD Code: E46 Status: Acute (6) Cervical muscle strain ICD Code: S16.1XXA Status: Acute (7) Bilateral impacted cerumen ICD Code: H61.23 Status: Resolved Assessment and Plan S/P traumatic brain injury: Initial head CT with right occipital bone fracture along with intraparenchymal hemorrhage, bilateral subdural hematomas, and subarachnoid hemorrhages. Patient is status post right frontal bur hole, right occipital craniectomy with SDH evacuation, left frontal temporoparietal decompressive craniotomy, and subsequent bone flap replacement. Neurosurgery has signed off. Discharged from PT/speech therapy/occupational therapy as patient has reached maximum benefit Keppra bid for seizure prophylaxis Hypertension: Continue Metoprolol 12.5 mg every 12 hours Monitor BP and adjust as needed. Protein Calorie malnutrition: Resolved Initially requiring PEG tube, however patient had been eating well and PEG was removed 05/25. Continue current diet Cerumen impaction: Resolved. -S/p Debrox treatment and repeat R ear irrigation. Hearing now improved. Chronic neck pain Continue Tylenol and heat as needed DVT prophylaxis: Patient is ambulating well, low risk Discharge Planning Hope to be accepted to [facility] when financial situation is resolved. I spoke with healthcare surrogate on 10/15 who states he is working on this. 10/17/16: per CM, waiting on [facility] to accept. 10/18/16: Spoke with CM. Hope to discharge soon. Problem Qualifiers (1) HTN (hypertension): Qualified Code: I10 - Essential hypertension Christina Hoff Oct 19, 2016 11:41
[2016-10-19 20:00] VITALS: BP 141/85; PULSE 60; RESP 18; TEMP 97.7; O2SAT 98
[2016-10-20 08:00] VITALS: BP 118/88; PULSE 82; RESP 18; TEMP 95.7; O2SAT 98
[2016-10-20] MEDS: SELENIUM SULFIDE 1% SHAMPOO 207 ML BOTTLE TOPICAL SCH (08:17)
[2016-10-20] MEDS: levETIRAcetam 500 MG TAB PO SCH ×2 (08:17→21:35)
[2016-10-20] MEDS: amLODIPine BESYLATE 5 MG TAB PO SCH (08:17)
--- NOTE | 2016-10-20 17:17 | HHI.PR ---
Subjective Remarks Patient seen in room. And also on the floor quite ambulatory. No distress Objective Vitals Vital Signs Date Time Temp Pulse Resp B/P Pulse Ox O2 Delivery O2 Flow Rate FiO2 10/20/16 08:00 95.7 82 18 118/88 98 10/19/16 20:00 97.7 60 18 141/85 98 I/O 10/19/16 10/19/16 10/19/16 10/20/16 10/20/16 10/20/16 06:59 14:59 22:59 06:59 14:59 22:59 Intake Total 600 ml 120 ml 1230 ml Balance 600 ml 120 ml 1230 ml Intake Oral 600 ml 120 ml 1230 ml # Voids 3 3 3 # Bowel Movements 0 1 Objective Remarks GENERAL: This is a well-nourished, well-developed patient, calm, status post left cranial surgery with jacinto in place CARDIOVASCULAR: Regular rate and rhythm without murmurs, gallops, or rubs. RESPIRATORY: Clear to auscultation. Breath sounds equal bilaterally. No wheezes , rales, or rhonchi. GASTROINTESTINAL: Abdomen soft, non-tender, nondistended. Normal active bowel sounds MUSCULOSKELETAL: Right extremity stiffness and edema, otherwise moves all 4 extremities NEURO: Alert & Oriented to person, significant expressive aphasia but attempts to answer questions Procedures 02/14 with right frontal bur hole and left subclavian line placement 02/15 with right occipital craniectomy with SDH evacuation 02/20 tracheostomy and PEG placement 02/25 left frontal temporoparietal decompressive craniotomy 03/06 PICC 03/29 bone flap replacement Date of Insertion: Apr 10, 2016 Date of Removal: Apr 22, 2016 A/P Problem List: (1) Traumatic brain injury ICD Code: S06.9X9A Status: Acute (2) HTN (hypertension) ICD Code: I10 Status: Chronic (3) Insomnia ICD Code: G47.00 Status: Acute (4) Urinary retention ICD Code: R33.9 Status: Resolved (5) Protein calorie malnutrition ICD Code: E46 Status: Acute (6) Cervical muscle strain ICD Code: S16.1XXA Status: Acute (7) Bilateral impacted cerumen ICD Code: H61.23 Status: Resolved Assessment and Plan Patient with cognitive impairment and will require long-term placement. Case management aware of discharge barriers Patient has received maximum benefit from rehabilitation services at this facility Discharge Planning Case management aware of barriers to discharge Problem Qualifiers (1) HTN (hypertension): Qualified Code: I10 - Essential hypertension Stephany Cameron MD Oct 20, 2016 17:17
[2016-10-20 20:00] VITALS: BP 131/89; PULSE 60; RESP 18; TEMP 96.3; O2SAT 60
[2016-10-21] MEDS: levETIRAcetam 500 MG TAB PO SCH ×2 (08:10→21:35)
[2016-10-21] MEDS: amLODIPine BESYLATE 5 MG TAB PO SCH (08:10)
[2016-10-21] MEDS: SELENIUM SULFIDE 1% SHAMPOO 207 ML BOTTLE TOPICAL SCH (08:11)
[2016-10-21 08:15] VITALS: BP 140/85; PULSE 72; RESP 21; TEMP 98.1; O2SAT 100
--- NOTE | 2016-10-21 11:44 | HHI.PR ---
Subjective Remarks No acute complaints. No change in clinical status. Objective Vitals Vital Signs Date Time Temp Pulse Resp B/P Pulse Ox O2 Delivery O2 Flow Rate FiO2 10/21/16 08:15 98.1 72 21 140/85 100 10/20/16 20:00 96.3 60 18 131/89 60 I/O 10/20/16 10/20/16 10/20/16 10/21/16 10/21/16 10/21/16 07:00 15:00 23:00 07:00 15:00 23:00 Intake Total 120 ml 1230 ml 640 ml 600 ml Output Total 0 ml Balance 120 ml 1230 ml 640 ml 600 ml Intake Oral 120 ml 1230 ml 640 ml 600 ml Output Urine Total 0 ml # Voids 3 3 2 2 # Bowel Movements 0 1 0 0 Objective Remarks GENERAL: Well-nourished, well-developed patient in no apparent distress. CARDIOVASCULAR: Regular rate and rhythm. RESPIRATORY: No accessory muscle use. CTAB. GASTROINTESTINAL: Abdomen soft, nontender, nondistended. NEUROLOGICAL: Awake and alert. Normal speech. PSYCHIATRIC: Appropriate mood and affect. Procedures 02/14 with right frontal bur hole and left subclavian line placement 02/15 with right occipital craniectomy with SDH evacuation 02/20 tracheostomy and PEG placement 02/25 left frontal temporoparietal decompressive craniotomy 03/06 PICC 03/29 bone flap replacement Urinary Catheter: No Date of Insertion: Apr 10, 2016 Date of Removal: Apr 22, 2016 Vascular Central Line Catheter: No A/P Problem List: (1) Traumatic brain injury ICD Code: S06.9X9A Status: Acute (2) HTN (hypertension) ICD Code: I10 Status: Chronic (3) Insomnia ICD Code: G47.00 Status: Acute (4) Urinary retention ICD Code: R33.9 Status: Resolved (5) Protein calorie malnutrition ICD Code: E46 Status: Acute (6) Cervical muscle strain ICD Code: S16.1XXA Status: Acute (7) Bilateral impacted cerumen ICD Code: H61.23 Status: Resolved Assessment and Plan S/P traumatic brain injury: Initial head CT with right occipital bone fracture along with intraparenchymal hemorrhage, bilateral subdural hematomas, and subarachnoid hemorrhages. Patient is status post right frontal bur hole, right occipital craniectomy with SDH evacuation, left frontal temporoparietal decompressive craniotomy, and subsequent bone flap replacement. Neurosurgery has signed off. Discharged from PT/speech therapy/occupational therapy as patient has reached maximum benefit Keppra bid for seizure prophylaxis Hypertension: Continue Metoprolol 12.5 mg every 12 hours Monitor BP and adjust as needed. Protein Calorie malnutrition: Resolved Initially requiring PEG tube, however patient had been eating well and PEG was removed 05/25. Continue current diet Cerumen impaction: Resolved. -S/p Debrox treatment and repeat R ear irrigation. Hearing now improved. Chronic neck pain Continue Tylenol and heat as needed DVT prophylaxis: Patient is ambulating well, low risk Discharge Planning Hope to be accepted to [place] when financial situation is resolved. I spoke with healthcare surrogate on 10/15 who states he is working on this. 10/17/16: per CM, waiting on [facility] to accept. 10/18/16: Spoke with CM. Hope to discharge soon. Problem Qualifiers (1) HTN (hypertension): Qualified Code: I10 - Essential hypertension Christina Hoff Oct 21, 2016 11:44
[2016-10-21 20:00] VITALS: BP 123/85; PULSE 58; RESP 18; TEMP 98.6; O2SAT 98
[2016-10-22 08:00] VITALS: BP 117/80; PULSE 56; RESP 18; TEMP 96.7; O2SAT 99
[2016-10-22] MEDS: SELENIUM SULFIDE 1% SHAMPOO 207 ML BOTTLE TOPICAL SCH (09:00)
--- NOTE | 2016-10-22 09:27 | HHI.PR ---
Subjective Remarks Patient seen and examined today. Patient denies any new complaints. No change in clinical status. Awaiting case management discharge planning Objective Vitals Vital Signs Date Time Temp Pulse Resp B/P Pulse Ox O2 Delivery O2 Flow Rate FiO2 10/21/16 20:00 98.6 58 18 123/85 98 I/O 10/21/16 10/21/16 10/21/16 10/22/16 10/22/16 10/22/16 07:00 15:00 23:00 07:00 15:00 23:00 Intake Total 600 ml 440 ml Balance 600 ml 440 ml Intake Oral 600 ml 440 ml # Voids 2 3 # Bowel Movements 0 0 Objective Remarks GENERAL: Well-developed, well-nourished, in no acute distress. alert and orientated to person, month, year, place HEENT: Head is normocephalic without any lesions or masses noted. Facial features are symmetric. Eyes: Extraocular muscles are intact. Conjunctivae were clear. NECK: Supple without any masses. Trachea midline no deviation. CARDIAC: Regular rhythm, regular rate. S1/S2 are heard. No murmurs gallops or rubs. LUNGS: Clear to auscultation bilaterally. No wheeze, rhonchi or rales. No use of accessory muscles on inspiration or expiration. ABDOMEN: Soft, nontender. Nondistended. Bowel sounds heard in all 4 quadrants. No organomegaly or masses. Negative rebound, negative guarding EXTREMITIES: No edema, pulses are equal bilaterally. No cyanosis or clubbing NEUROLOGY: Mood and affect appear appropriate. Cranial nerves II through XII grossly intact. Moving all extremities, speech is clear Procedures 02/14 with right frontal bur hole and left subclavian line placement 02/15 with right occipital craniectomy with SDH evacuation 02/20 tracheostomy and PEG placement 02/25 left frontal temporoparietal decompressive craniotomy 03/06 PICC 03/29 bone flap replacement Urinary Catheter: No Date of Insertion: Apr 10, 2016 Date of Removal: Apr 22, 2016 Vascular Central Line Catheter: No A/P Assessment and Plan S/P traumatic brain injury: Initial head CT with right occipital bone fracture along with intraparenchymal hemorrhage, bilateral subdural hematomas, and subarachnoid hemorrhages. Patient is status post right frontal bur hole, right occipital craniectomy with SDH evacuation, left frontal temporoparietal decompressive craniotomy, and subsequent bone flap replacement. Neurosurgery has signed off. Discharged from PT/speech therapy/occupational therapy as patient has reached maximum benefit Keppra bid for seizure prophylaxis Hypertension: Stable Blood pressure stable, Norvasc 5 mg daily Protein Calorie malnutrition: Resolved Initially requiring PEG tube, however patient had been eating well and PEG was removed 05/25. Continue current diet Prealbumin 30 Chronic neck pain Continue Tylenol and heat as needed DVT prophylaxis: Patient is ambulating well, low risk Discharge Planning Discharge planning per case management. patient has been accepted at the [facility] , however awaiting financials to be sorted out. Kaushik Mcguire Oct 22, 2016 09:27
[2016-10-22] MEDS: levETIRAcetam 500 MG TAB PO SCH ×2 (10:05→21:15)
[2016-10-22] MEDS: amLODIPine BESYLATE 5 MG TAB PO SCH (10:05)
[2016-10-22 20:00] VITALS: BP 125/86; PULSE 63; RESP 20; TEMP 98; O2SAT 98
[2016-10-23 08:00] VITALS: BP 123/83; PULSE 56; RESP 18; TEMP 97.1; O2SAT 99
[2016-10-23] MEDS: levETIRAcetam 500 MG TAB PO SCH ×2 (08:39→21:18)
[2016-10-23] MEDS: amLODIPine BESYLATE 5 MG TAB PO SCH (08:40)
[2016-10-23] MEDS: SELENIUM SULFIDE 1% SHAMPOO 207 ML BOTTLE TOPICAL SCH (08:41)
--- NOTE | 2016-10-23 09:28 | HHI.PR ---
Subjective Remarks Patient seen and examined today. Patient denies any new complaints. No change in clinical status. Awaiting case management for discharge planning Objective Vitals Vital Signs Date Time Temp Pulse Resp B/P Pulse Ox O2 Delivery O2 Flow Rate FiO2 10/23/16 08:00 97.1 56 18 123/83 99 10/22/16 20:00 98.0 63 20 125/86 98 I/O 10/22/16 10/22/16 10/22/16 10/23/16 10/23/16 10/23/16 07:00 15:00 23:00 07:00 15:00 23:00 Intake Total 960 ml 810 ml 160 ml Output Total 900 ml Balance 960 ml 810 ml -740 ml Intake Oral 960 ml 810 ml 160 ml Output Urine Total 900 ml # Voids 3 2 2 # Bowel Movements 0 1 Objective Remarks GENERAL: Well-developed, well-nourished, in no acute distress. alert and orientated to person, month, year, place HEENT: Head is normocephalic without any lesions or masses noted. Facial features are symmetric. Eyes: Extraocular muscles are intact. Conjunctivae were clear. NECK: Supple without any masses. Trachea midline no deviation. CARDIAC: Regular rhythm, regular rate. S1/S2 are heard. No murmurs gallops or rubs. LUNGS: Clear to auscultation bilaterally. No wheeze, rhonchi or rales. No use of accessory muscles on inspiration or expiration. ABDOMEN: Soft, nontender. Nondistended. Bowel sounds heard in all 4 quadrants. No organomegaly or masses. Negative rebound, negative guarding EXTREMITIES: No edema, pulses are equal bilaterally. No cyanosis or clubbing NEUROLOGY: Mood and affect appear appropriate. Cranial nerves II through XII grossly intact. Moving all extremities, speech is clear Procedures 02/14 with right frontal bur hole and left subclavian line placement 02/15 with right occipital craniectomy with SDH evacuation 02/20 tracheostomy and PEG placement 02/25 left frontal temporoparietal decompressive craniotomy 03/06 PICC 03/29 bone flap replacement Urinary Catheter: No Date of Insertion: Apr 10, 2016 Date of Removal: Apr 22, 2016 Vascular Central Line Catheter: No A/P Assessment and Plan S/P traumatic brain injury: Initial head CT with right occipital bone fracture along with intraparenchymal hemorrhage, bilateral subdural hematomas, and subarachnoid hemorrhages. Patient is status post right frontal bur hole, right occipital craniectomy with SDH evacuation, left frontal temporoparietal decompressive craniotomy, and subsequent bone flap replacement. Neurosurgery has signed off. Discharged from PT/speech therapy/occupational therapy as patient has reached maximum benefit Keppra bid for seizure prophylaxis Hypertension: Stable Blood pressure stable, Norvasc 5 mg daily Protein Calorie malnutrition: Resolved Initially requiring PEG tube, however patient had been eating well and PEG was removed 05/25. Continue current diet Prealbumin 30 Chronic neck pain Continue Tylenol and heat as needed DVT prophylaxis: Patient is ambulating well, low risk Discharge Planning Discharge planning per case management. patient has been accepted at the [facility] , however awaiting financials to be sorted out. Kaushik Mcguire Oct 23, 2016 09:28
[2016-10-23 20:00] VITALS: BP 114/71; PULSE 85; RESP 18; TEMP 98.6; O2SAT 98
[2016-10-24 08:00] VITALS: BP 124/89; PULSE 64; RESP 20; TEMP 96.4; O2SAT 98
[2016-10-24] MEDS: SELENIUM SULFIDE 1% SHAMPOO 207 ML BOTTLE TOPICAL SCH (08:55)
[2016-10-24] MEDS: levETIRAcetam 500 MG TAB PO SCH ×2 (08:55→21:41)
[2016-10-24] MEDS: amLODIPine BESYLATE 5 MG TAB PO SCH (08:55)
--- NOTE | 2016-10-24 09:33 | HHI.PR ---
Subjective Remarks Patient seen and examined today. Patient denies any new complaints. No change in clinical status. Awaiting case management for discharge planning. Objective Vitals Vital Signs Date Time Temp Pulse Resp B/P Pulse Ox O2 Delivery O2 Flow Rate FiO2 10/23/16 20:00 98.6 85 18 114/71 98 I/O 10/23/16 10/23/16 10/23/16 10/24/16 10/24/16 10/24/16 07:00 15:00 23:00 07:00 15:00 23:00 Intake Total 160 ml 690 ml 580 ml 240 ml Output Total 900 ml Balance -740 ml 690 ml 580 ml 240 ml Intake Oral 160 ml 690 ml 580 ml 240 ml Output Urine Total 900 ml # Voids 3 2 1 # Bowel Movements 1 0 0 Objective Remarks GENERAL: Well-developed, well-nourished, in no acute distress. alert and orientated to person, month, year, place HEENT: Head is normocephalic without any lesions or masses noted. Facial features are symmetric. Eyes: Extraocular muscles are intact. Conjunctivae were clear. NECK: Supple without any masses. Trachea midline no deviation. CARDIAC: Regular rhythm, regular rate. S1/S2 are heard. No murmurs gallops or rubs. LUNGS: Clear to auscultation bilaterally. No wheeze, rhonchi or rales. No use of accessory muscles on inspiration or expiration. ABDOMEN: Soft, nontender. Nondistended. Bowel sounds heard in all 4 quadrants. No organomegaly or masses. Negative rebound, negative guarding EXTREMITIES: No edema, pulses are equal bilaterally. No cyanosis or clubbing NEUROLOGY: Mood and affect appear appropriate. Cranial nerves II through XII grossly intact. Moving all extremities, speech is clear Procedures 02/14 with right frontal bur hole and left subclavian line placement 02/15 with right occipital craniectomy with SDH evacuation 02/20 tracheostomy and PEG placement 02/25 left frontal temporoparietal decompressive craniotomy 03/06 PICC 03/29 bone flap replacement Urinary Catheter: No Date of Insertion: Apr 10, 2016 Date of Removal: Apr 22, 2016 Vascular Central Line Catheter: No A/P Assessment and Plan S/P traumatic brain injury: Initial head CT with right occipital bone fracture along with intraparenchymal hemorrhage, bilateral subdural hematomas, and subarachnoid hemorrhages. Patient is status post right frontal bur hole, right occipital craniectomy with SDH evacuation, left frontal temporoparietal decompressive craniotomy, and subsequent bone flap replacement. Neurosurgery has signed off. Discharged from PT/speech therapy/occupational therapy as patient has reached maximum benefit Keppra bid for seizure prophylaxis Hypertension: Stable Blood pressure stable, Norvasc 5 mg daily Protein Calorie malnutrition: Resolved Initially requiring PEG tube, however patient had been eating well and PEG was removed 05/25. Continue current diet Prealbumin 30 Chronic neck pain Continue Tylenol and heat as needed DVT prophylaxis: Patient is ambulating well, low risk Discharge Planning Discharge planning per case management. patient has been accepted at the [facility] , however awaiting financials to be sorted out. Kaushik Mcguire Oct 24, 2016 09:33
[2016-10-24 20:00] VITALS: BP 133/96; PULSE 60; RESP 18; TEMP 96.4; O2SAT 100
[2016-10-25] MEDS: SELENIUM SULFIDE 1% SHAMPOO 207 ML BOTTLE TOPICAL SCH (07:59)
[2016-10-25] MEDS: amLODIPine BESYLATE 5 MG TAB PO SCH (07:59)
[2016-10-25] MEDS: levETIRAcetam 500 MG TAB PO SCH ×2 (07:59→21:10)
[2016-10-25 08:00] VITALS: BP 125/74; PULSE 66; RESP 16; TEMP 97.3; O2SAT 98
--- NOTE | 2016-10-25 08:49 | HHI.PR ---
Subjective Remarks Patient seen and examined today. Patient denies any new complaints. No change in clinical status. Awaiting case management discharge planning. Objective Vitals Vital Signs Date Time Temp Pulse Resp B/P Pulse Ox O2 Delivery O2 Flow Rate FiO2 10/25/16 08:00 97.3 66 16 125/74 98 10/24/16 20:00 96.4 60 18 133/96 100 I/O 10/24/16 10/24/16 10/24/16 10/25/16 10/25/16 10/25/16 07:00 15:00 23:00 07:00 15:00 23:00 Intake Total 240 ml 1000 ml 660 ml Balance 240 ml 1000 ml 660 ml Intake Oral 240 ml 1000 ml 660 ml # Voids 1 5 6 # Bowel Movements 0 0 0 Objective Remarks GENERAL: Well-developed, well-nourished, in no acute distress. alert and orientated to person, month, year, place HEENT: Head is normocephalic without any lesions or masses noted. Facial features are symmetric. Eyes: Extraocular muscles are intact. Conjunctivae were clear. NECK: Supple without any masses. Trachea midline no deviation. CARDIAC: Regular rhythm, regular rate. S1/S2 are heard. No murmurs gallops or rubs. LUNGS: Clear to auscultation bilaterally. No wheeze, rhonchi or rales. No use of accessory muscles on inspiration or expiration. ABDOMEN: Soft, nontender. Nondistended. Bowel sounds heard in all 4 quadrants. No organomegaly or masses. Negative rebound, negative guarding EXTREMITIES: No edema, pulses are equal bilaterally. No cyanosis or clubbing NEUROLOGY: Mood and affect appear appropriate. Cranial nerves II through XII grossly intact. Moving all extremities, speech is clear Procedures 02/14 with right frontal bur hole and left subclavian line placement 02/15 with right occipital craniectomy with SDH evacuation 02/20 tracheostomy and PEG placement 02/25 left frontal temporoparietal decompressive craniotomy 03/06 PICC 03/29 bone flap replacement Urinary Catheter: No Date of Insertion: Apr 10, 2016 Date of Removal: Apr 22, 2016 Vascular Central Line Catheter: No A/P Assessment and Plan S/P traumatic brain injury: Initial head CT with right occipital bone fracture along with intraparenchymal hemorrhage, bilateral subdural hematomas, and subarachnoid hemorrhages. Patient is status post right frontal bur hole, right occipital craniectomy with SDH evacuation, left frontal temporoparietal decompressive craniotomy, and subsequent bone flap replacement. Neurosurgery has signed off. Discharged from PT/speech therapy/occupational therapy as patient has reached maximum benefit Keppra bid for seizure prophylaxis Hypertension: Stable Blood pressure stable, Norvasc 5 mg daily Protein Calorie malnutrition: Resolved Initially requiring PEG tube, however patient had been eating well and PEG was removed 05/25. Continue current diet Prealbumin 30 Chronic neck pain Continue Tylenol and heat as needed DVT prophylaxis: Patient is ambulating well, low risk Discharge Planning Discharge planning per case management. patient has been accepted at the [facility] , however awaiting financials to be sorted out. Kaushik Mcguire Oct 25, 2016 08:49
[2016-10-25 20:47] VITALS: BP 129/84; PULSE 68; RESP 18; TEMP 96.5; O2SAT 100
[2016-10-26 08:00] VITALS: BP 118/85; PULSE 59; RESP 18; TEMP 97.1; O2SAT 98
[2016-10-26] MEDS: levETIRAcetam 500 MG TAB PO SCH ×2 (08:13→21:30)
[2016-10-26] MEDS: amLODIPine BESYLATE 5 MG TAB PO SCH (08:13)
[2016-10-26] MEDS: SELENIUM SULFIDE 1% SHAMPOO 207 ML BOTTLE TOPICAL SCH (08:14)
--- NOTE | 2016-10-26 10:06 | HHI.PR ---
Subjective Remarks Patient seen and examined today. Patient denies any new complaints. No change in clinical status. Awaiting case management discharge planning Objective Vitals Vital Signs Date Time Temp Pulse Resp B/P Pulse Ox O2 Delivery O2 Flow Rate FiO2 10/26/16 08:00 97.1 59 18 118/85 98 10/25/16 20:47 96.5 68 18 129/84 100 I/O 10/25/16 10/25/16 10/25/16 10/26/16 10/26/16 10/26/16 07:00 15:00 23:00 07:00 15:00 23:00 Intake Total 660 ml 800 ml Balance 660 ml 800 ml Intake Oral 660 ml 800 ml # Voids 6 3 2 2 # Bowel Movements 0 1 0 0 Objective Remarks GENERAL: Well-developed, well-nourished, in no acute distress. alert and orientated to person, month, year, place HEENT: Head is normocephalic without any lesions or masses noted. Facial features are symmetric. Eyes: Extraocular muscles are intact. Conjunctivae were clear. NECK: Supple without any masses. Trachea midline no deviation. CARDIAC: Regular rhythm, regular rate. S1/S2 are heard. No murmurs gallops or rubs. LUNGS: Clear to auscultation bilaterally. No wheeze, rhonchi or rales. No use of accessory muscles on inspiration or expiration. ABDOMEN: Soft, nontender. Nondistended. Bowel sounds heard in all 4 quadrants. No organomegaly or masses. Negative rebound, negative guarding EXTREMITIES: No edema, pulses are equal bilaterally. No cyanosis or clubbing NEUROLOGY: Mood and affect appear appropriate. Cranial nerves II through XII grossly intact. Moving all extremities, speech is clear Procedures 02/14 with right frontal bur hole and left subclavian line placement 02/15 with right occipital craniectomy with SDH evacuation 02/20 tracheostomy and PEG placement 02/25 left frontal temporoparietal decompressive craniotomy 03/06 PICC 03/29 bone flap replacement Urinary Catheter: No Date of Insertion: Apr 10, 2016 Date of Removal: Apr 22, 2016 Vascular Central Line Catheter: No A/P Assessment and Plan S/P traumatic brain injury: Initial head CT with right occipital bone fracture along with intraparenchymal hemorrhage, bilateral subdural hematomas, and subarachnoid hemorrhages. Patient is status post right frontal bur hole, right occipital craniectomy with SDH evacuation, left frontal temporoparietal decompressive craniotomy, and subsequent bone flap replacement. Neurosurgery has signed off. Discharged from PT/speech therapy/occupational therapy as patient has reached maximum benefit Keppra bid for seizure prophylaxis Hypertension: Stable Blood pressure stable, Norvasc 5 mg daily Protein Calorie malnutrition: Resolved Initially requiring PEG tube, however patient had been eating well and PEG was removed 05/25. Continue current diet Prealbumin 30 Chronic neck pain Continue Tylenol and heat as needed DVT prophylaxis: Patient is ambulating well, low risk Discharge Planning Discharge planning per case management. patient has been accepted at the [facility] , however awaiting financials to be sorted out. Kaushik Mcguire Oct 26, 2016 10:06
[2016-10-26 20:00] VITALS: BP 136/90; PULSE 59; RESP 18; TEMP 97.8; O2SAT 100
[2016-10-27 08:00] VITALS: BP 117/82; PULSE 59; RESP 19; TEMP 96; O2SAT 98
[2016-10-27] MEDS: SELENIUM SULFIDE 1% SHAMPOO 207 ML BOTTLE TOPICAL SCH (09:00)
--- NOTE | 2016-10-27 10:20 | HHI.PR ---
Subjective Remarks Patient seen and examined today. Patient denies any new complaints. No change in clinical status. Awaiting case management for discharge planning. Objective Vitals Vital Signs Date Time Temp Pulse Resp B/P Pulse Ox O2 Delivery O2 Flow Rate FiO2 10/27/16 08:00 96.0 59 19 117/82 98 10/26/16 20:00 97.8 59 18 136/90 100 I/O 10/26/16 10/26/16 10/26/16 10/27/16 10/27/16 10/27/16 07:00 15:00 23:00 07:00 15:00 23:00 Intake Total 620 ml 240 ml 480 ml Balance 620 ml 240 ml 480 ml Intake Oral 620 ml 240 ml 480 ml # Voids 2 2 2 2 # Bowel Movements 0 1 0 0 Objective Remarks GENERAL: Well-developed, well-nourished, in no acute distress. alert and orientated to person, month, year, place HEENT: Head is normocephalic without any lesions or masses noted. Facial features are symmetric. Eyes: Extraocular muscles are intact. Conjunctivae were clear. NECK: Supple without any masses. Trachea midline no deviation. CARDIAC: Regular rhythm, regular rate. S1/S2 are heard. No murmurs gallops or rubs. LUNGS: Clear to auscultation bilaterally. No wheeze, rhonchi or rales. No use of accessory muscles on inspiration or expiration. ABDOMEN: Soft, nontender. Nondistended. Bowel sounds heard in all 4 quadrants. No organomegaly or masses. Negative rebound, negative guarding EXTREMITIES: No edema, pulses are equal bilaterally. No cyanosis or clubbing NEUROLOGY: Mood and affect appear appropriate. Cranial nerves II through XII grossly intact. Moving all extremities, speech is clear Procedures 02/14 with right frontal bur hole and left subclavian line placement 02/15 with right occipital craniectomy with SDH evacuation 02/20 tracheostomy and PEG placement 02/25 left frontal temporoparietal decompressive craniotomy 03/06 PICC 03/29 bone flap replacement Urinary Catheter: No Date of Insertion: Apr 10, 2016 Date of Removal: Apr 22, 2016 Vascular Central Line Catheter: No A/P Assessment and Plan S/P traumatic brain injury: Initial head CT with right occipital bone fracture along with intraparenchymal hemorrhage, bilateral subdural hematomas, and subarachnoid hemorrhages. Patient is status post right frontal bur hole, right occipital craniectomy with SDH evacuation, left frontal temporoparietal decompressive craniotomy, and subsequent bone flap replacement. Neurosurgery has signed off. Discharged from PT/speech therapy/occupational therapy as patient has reached maximum benefit Keppra bid for seizure prophylaxis Hypertension: Stable Blood pressure stable, Norvasc 5 mg daily Protein Calorie malnutrition: Resolved Initially requiring PEG tube, however patient had been eating well and PEG was removed 05/25. Continue current diet Prealbumin 30 Chronic neck pain Continue Tylenol and heat as needed DVT prophylaxis: Patient is ambulating well, low risk Discharge Planning Discharge planning per case management. patient has been accepted at the [facility] , however awaiting financials to be sorted out. Kaushik Mcguire Oct 27, 2016 10:20
[2016-10-27] MEDS: amLODIPine BESYLATE 5 MG TAB PO SCH (10:22)
[2016-10-27] MEDS: levETIRAcetam 500 MG TAB PO SCH ×2 (10:22→20:32)
[2016-10-27 20:00] VITALS: BP 167/95; PULSE 64; RESP 18; TEMP 97.5; O2SAT 100
[2016-10-28] MEDS: amLODIPine BESYLATE 5 MG TAB PO SCH (07:53)
[2016-10-28] MEDS: levETIRAcetam 500 MG TAB PO SCH ×2 (07:53→20:44)
[2016-10-28] MEDS: SELENIUM SULFIDE 1% SHAMPOO 207 ML BOTTLE TOPICAL SCH (07:54)
[2016-10-28 08:00] VITALS: BP 128/73; PULSE 88; RESP 18; TEMP 97.7; O2SAT 97
--- NOTE | 2016-10-28 09:27 | HHI.PR ---
Subjective Remarks Patient seen and examined today. Patient denies any new complaints. No change in clinical status. Awaiting case management for discharge planning. Objective Vitals Vital Signs Date Time Temp Pulse Resp B/P Pulse Ox O2 Delivery O2 Flow Rate FiO2 10/27/16 20:00 97.5 64 18 167/95 100 I/O 10/27/16 10/27/16 10/27/16 10/28/16 10/28/16 10/28/16 07:00 15:00 23:00 07:00 15:00 23:00 Intake Total 480 ml 750 ml 480 ml 480 ml Balance 480 ml 750 ml 480 ml 480 ml Intake Oral 480 ml 750 ml 480 ml 480 ml # Voids 2 2 2 2 # Bowel Movements 0 0 0 0 Objective Remarks GENERAL: Well-developed, well-nourished, in no acute distress. alert and orientated to person, month, year, place HEENT: Head is normocephalic without any lesions or masses noted. Facial features are symmetric. Eyes: Extraocular muscles are intact. Conjunctivae were clear. NECK: Supple without any masses. Trachea midline no deviation. CARDIAC: Regular rhythm, regular rate. S1/S2 are heard. No murmurs gallops or rubs. LUNGS: Clear to auscultation bilaterally. No wheeze, rhonchi or rales. No use of accessory muscles on inspiration or expiration. ABDOMEN: Soft, nontender. Nondistended. Bowel sounds heard in all 4 quadrants. No organomegaly or masses. Negative rebound, negative guarding EXTREMITIES: No edema, pulses are equal bilaterally. No cyanosis or clubbing NEUROLOGY: Mood and affect appear appropriate. Cranial nerves II through XII grossly intact. Moving all extremities, speech is clear Procedures 02/14 with right frontal bur hole and left subclavian line placement 02/15 with right occipital craniectomy with SDH evacuation 02/20 tracheostomy and PEG placement 02/25 left frontal temporoparietal decompressive craniotomy 03/06 PICC 03/29 bone flap replacement Urinary Catheter: No Date of Insertion: Apr 10, 2016 Date of Removal: Apr 22, 2016 Vascular Central Line Catheter: No A/P Assessment and Plan S/P traumatic brain injury: Initial head CT with right occipital bone fracture along with intraparenchymal hemorrhage, bilateral subdural hematomas, and subarachnoid hemorrhages. Patient is status post right frontal bur hole, right occipital craniectomy with SDH evacuation, left frontal temporoparietal decompressive craniotomy, and subsequent bone flap replacement. Neurosurgery has signed off. Discharged from PT/speech therapy/occupational therapy as patient has reached maximum benefit Keppra bid for seizure prophylaxis Hypertension: Stable Blood pressure stable, Norvasc 5 mg daily Protein Calorie malnutrition: Resolved Initially requiring PEG tube, however patient had been eating well and PEG was removed 05/25. Continue current diet Prealbumin 30 Chronic neck pain Continue Tylenol and heat as needed DVT prophylaxis: Patient is ambulating well, low risk Discharge Planning Discharge planning per case management. patient has been accepted at the [facility] , however awaiting financials to be sorted out. Kaushik Mcguire Oct 28, 2016 09:27
[2016-10-28 20:00] VITALS: BP 140/88; PULSE 60; RESP 18; TEMP 96; O2SAT 98
[2016-10-29 08:00] VITALS: BP 113/80; PULSE 64; RESP 20; TEMP 96.5; O2SAT 97
[2016-10-29] MEDS: levETIRAcetam 500 MG TAB PO SCH ×2 (09:54→20:59)
[2016-10-29] MEDS: amLODIPine BESYLATE 5 MG TAB PO SCH (09:54)
[2016-10-29] MEDS: SELENIUM SULFIDE 1% SHAMPOO 207 ML BOTTLE TOPICAL SCH (09:54)
--- NOTE | 2016-10-29 13:36 | HHI.PR ---
Subjective Remarks No acute complaints. No change in clinical status. Objective Vitals Vital Signs Date Time Temp Pulse Resp B/P Pulse Ox O2 Delivery O2 Flow Rate FiO2 10/29/16 08:00 96.5 64 20 113/80 97 10/28/16 20:00 96.0 60 18 140/88 98 I/O 10/28/16 10/28/16 10/28/16 10/29/16 10/29/16 10/29/16 07:00 15:00 23:00 07:00 15:00 23:00 Intake Total 480 ml 1300 ml 240 ml Balance 480 ml 1300 ml 240 ml Intake Oral 480 ml 1300 ml 240 ml # Voids 2 6 2 # Bowel Movements 0 0 Objective Remarks GENERAL: Well-nourished, well-developed patient in no apparent distress. CARDIOVASCULAR: Regular rate and rhythm. RESPIRATORY: No accessory muscle use. CTAB. GASTROINTESTINAL: Abdomen soft, nontender, nondistended. NEUROLOGICAL: Awake and alert. Normal speech. PSYCHIATRIC: Appropriate mood and affect. Procedures 02/14 with right frontal bur hole and left subclavian line placement 02/15 with right occipital craniectomy with SDH evacuation 02/20 tracheostomy and PEG placement 02/25 left frontal temporoparietal decompressive craniotomy 03/06 PICC 03/29 bone flap replacement Urinary Catheter: No Date of Insertion: Apr 10, 2016 Date of Removal: Apr 22, 2016 Vascular Central Line Catheter: No A/P Problem List: (1) Traumatic brain injury ICD Code: S06.9X9A Status: Acute (2) HTN (hypertension) ICD Code: I10 Status: Chronic (3) Insomnia ICD Code: G47.00 Status: Acute (4) Urinary retention ICD Code: R33.9 Status: Resolved (5) Protein calorie malnutrition ICD Code: E46 Status: Acute (6) Cervical muscle strain ICD Code: S16.1XXA Status: Acute (7) Bilateral impacted cerumen ICD Code: H61.23 Status: Resolved Assessment and Plan S/P traumatic brain injury: Initial head CT with right occipital bone fracture along with intraparenchymal hemorrhage, bilateral subdural hematomas, and subarachnoid hemorrhages. Patient is status post right frontal bur hole, right occipital craniectomy with SDH evacuation, left frontal temporoparietal decompressive craniotomy, and subsequent bone flap replacement. Neurosurgery has signed off. Discharged from PT/speech therapy/occupational therapy as patient has reached maximum benefit Keppra bid for seizure prophylaxis Hypertension: Continue Metoprolol 12.5 mg every 12 hours Monitor BP and adjust as needed. Protein Calorie malnutrition: Resolved Initially requiring PEG tube, however patient had been eating well and PEG was removed 05/25. Continue current diet Cerumen impaction: Resolved. -S/p Debrox treatment and repeat R ear irrigation. Hearing now improved. Chronic neck pain Continue Tylenol and heat as needed DVT prophylaxis: Patient is ambulating well, low risk Discharge Planning 10/28/16: requested [facility] to evaluate for placement; also contacted [facility] for follow-up on acceptance. Problem Qualifiers (1) HTN (hypertension): Qualified Code: I10 - Essential hypertension Christina Hoff Oct 29, 2016 13:36
[2016-10-29 20:00] VITALS: BP 131/85; PULSE 64; RESP 18; TEMP 97; O2SAT 96
[2016-10-30 08:00] VITALS: BP 130/57; PULSE 63; RESP 20; TEMP 97; O2SAT 98
[2016-10-30] MEDS: levETIRAcetam 500 MG TAB PO SCH ×2 (08:00→21:21)
[2016-10-30] MEDS: amLODIPine BESYLATE 5 MG TAB PO SCH (08:00)
[2016-10-30] MEDS: SELENIUM SULFIDE 1% SHAMPOO 207 ML BOTTLE TOPICAL SCH (08:00)
--- NOTE | 2016-10-30 12:13 | HHI.PR ---
Subjective Remarks No acute complaints. No change in clinical status. Objective Vitals Vital Signs Date Time Temp Pulse Resp B/P Pulse Ox O2 Delivery O2 Flow Rate FiO2 10/30/16 08:00 97.0 63 20 130/57 98 10/29/16 20:00 97.0 64 18 131/85 96 I/O 10/29/16 10/29/16 10/29/16 10/30/16 10/30/16 10/30/16 07:00 15:00 23:00 07:00 15:00 23:00 Intake Total 240 ml 2000 ml 700 ml 240 ml Balance 240 ml 2000 ml 700 ml 240 ml Intake Oral 240 ml 2000 ml 700 ml 240 ml # Voids 2 5 3 1 # Bowel Movements 0 0 0 Objective Remarks GENERAL: Well-nourished, well-developed patient in no apparent distress. CARDIOVASCULAR: Regular rate and rhythm. RESPIRATORY: No accessory muscle use. CTAB. GASTROINTESTINAL: Abdomen soft, nontender, nondistended. NEUROLOGICAL: Awake and alert. Normal speech. PSYCHIATRIC: Appropriate mood and affect. Procedures 02/14 with right frontal bur hole and left subclavian line placement 02/15 with right occipital craniectomy with SDH evacuation 02/20 tracheostomy and PEG placement 02/25 left frontal temporoparietal decompressive craniotomy 03/06 PICC 03/29 bone flap replacement Urinary Catheter: No Date of Insertion: Apr 10, 2016 Date of Removal: Apr 22, 2016 Vascular Central Line Catheter: No A/P Problem List: (1) Traumatic brain injury ICD Code: S06.9X9A Status: Acute (2) HTN (hypertension) ICD Code: I10 Status: Chronic (3) Insomnia ICD Code: G47.00 Status: Acute (4) Urinary retention ICD Code: R33.9 Status: Resolved (5) Protein calorie malnutrition ICD Code: E46 Status: Acute (6) Cervical muscle strain ICD Code: S16.1XXA Status: Acute (7) Bilateral impacted cerumen ICD Code: H61.23 Status: Resolved Assessment and Plan S/P traumatic brain injury: Initial head CT with right occipital bone fracture along with intraparenchymal hemorrhage, bilateral subdural hematomas, and subarachnoid hemorrhages. Patient is status post right frontal eusebio hole, right occipital craniectomy with SDH evacuation, left frontal temporoparietal decompressive craniotomy, and subsequent bone flap replacement. Neurosurgery has signed off. Discharged from PT/speech therapy/occupational therapy as patient has reached maximum benefit Keppra bid for seizure prophylaxis Hypertension: Continue Metoprolol 12.5 mg every 12 hours Monitor BP and adjust as needed. Protein Calorie malnutrition: Resolved Initially requiring PEG tube, however patient had been eating well and PEG was removed 05/25. Continue current diet Cerumen impaction: Resolved. -S/p Debrox treatment and repeat R ear irrigation. Hearing now improved. Chronic neck pain Continue Tylenol and heat as needed DVT prophylaxis: Patient is ambulating well, low risk Discharge Planning 10/28/16: CM requested [facility] to evaluate for placement; also contacted [facility] for follow-up on acceptance. Problem Qualifiers (1) HTN (hypertension): Qualified Code: I10 - Essential hypertension Christina Hoff Oct 30, 2016 12:12
[2016-10-30 20:00] VITALS: BP 134/84; PULSE 53; RESP 17; TEMP 97.4; O2SAT 98
[2016-10-31 09:16] VITALS: BP 139/86; PULSE 63; RESP 18; TEMP 96.5; O2SAT 97
[2016-10-31] MEDS: SELENIUM SULFIDE 1% SHAMPOO 207 ML BOTTLE TOPICAL SCH (09:19)
[2016-10-31] MEDS: amLODIPine BESYLATE 5 MG TAB PO SCH (09:19)
[2016-10-31] MEDS: levETIRAcetam 500 MG TAB PO SCH ×2 (09:19→20:32)
--- NOTE | 2016-10-31 12:28 | HHI.PR ---
Subjective Remarks No acute complaints. No change in clinical status. Objective Vitals Vital Signs Date Time Temp Pulse Resp B/P Pulse Ox O2 Delivery O2 Flow Rate FiO2 10/31/16 09:16 96.5 63 18 139/86 97 10/30/16 20:00 97.4 53 17 134/84 98 I/O 10/30/16 10/30/16 10/30/16 10/31/16 10/31/16 10/31/16 07:00 15:00 23:00 07:00 15:00 23:00 Intake Total 240 ml 900 ml 240 ml 220 ml Balance 240 ml 900 ml 240 ml 220 ml Intake Oral 240 ml 900 ml 240 ml 220 ml # Voids 1 2 2 1 # Bowel Movements 0 1 0 0 Objective Remarks GENERAL: Well-nourished, well-developed patient in no apparent distress. CARDIOVASCULAR: Regular rate and rhythm. RESPIRATORY: No accessory muscle use. CTAB. GASTROINTESTINAL: Abdomen soft, nontender, nondistended. NEUROLOGICAL: Awake and alert. Normal speech. PSYCHIATRIC: Appropriate mood and affect. Procedures 02/14 with right frontal bur hole and left subclavian line placement 02/15 with right occipital craniectomy with SDH evacuation 02/20 tracheostomy and PEG placement 02/25 left frontal temporoparietal decompressive craniotomy 03/06 PICC 03/29 bone flap replacement Urinary Catheter: No Date of Insertion: Apr 10, 2016 Date of Removal: Apr 22, 2016 Vascular Central Line Catheter: No A/P Problem List: (1) Traumatic brain injury ICD Code: S06.9X9A Status: Acute (2) HTN (hypertension) ICD Code: I10 Status: Chronic (3) Insomnia ICD Code: G47.00 Status: Acute (4) Urinary retention ICD Code: R33.9 Status: Resolved (5) Protein calorie malnutrition ICD Code: E46 Status: Acute (6) Cervical muscle strain ICD Code: S16.1XXA Status: Acute (7) Bilateral impacted cerumen ICD Code: H61.23 Status: Resolved Assessment and Plan S/P traumatic brain injury: Initial head CT with right occipital bone fracture along with intraparenchymal hemorrhage, bilateral subdural hematomas, and subarachnoid hemorrhages. Patient is status post right frontal eusebio hole, right occipital craniectomy with SDH evacuation, left frontal temporoparietal decompressive craniotomy, and subsequent bone flap replacement. Neurosurgery has signed off. Discharged from PT/speech therapy/occupational therapy as patient has reached maximum benefit Keppra bid for seizure prophylaxis Hypertension: Continue Metoprolol 12.5 mg every 12 hours Monitor BP and adjust as needed. Protein Calorie malnutrition: Resolved Initially requiring PEG tube, however patient had been eating well and PEG was removed 05/25. Continue current diet Cerumen impaction: Resolved. -S/p Debrox treatment and repeat R ear irrigation. Hearing now improved. Chronic neck pain Continue Tylenol and heat as needed DVT prophylaxis: Patient is ambulating well, low risk Discharge Planning 10/28/16: CM requested [facility] to evaluate for placement; also contacted [facility] for follow-up on acceptance. 10/30/16: CM requested [facility] and [facility] to evaluate for placement. Problem Qualifiers (1) HTN (hypertension): Qualified Code: I10 - Essential hypertension Christina Hoff Oct 31, 2016 12:28
[2016-10-31 20:00] VITALS: BP 147/97; PULSE 57; RESP 16; TEMP 96; O2SAT 98
[2016-11-01 08:57] VITALS: BP 134/97; PULSE 51; RESP 16; TEMP 96; O2SAT 100
--- NOTE | 2016-11-01 09:24 | HHI.PR ---
Subjective Remarks No acute complaints. No change in clinical status. Objective Vitals Vital Signs Date Time Temp Pulse Resp B/P Pulse Ox O2 Delivery O2 Flow Rate FiO2 11/01/16 08:57 96.0 51 16 134/97 100 10/31/16 20:00 96.0 57 16 147/97 98 I/O 10/31/16 10/31/16 10/31/16 11/01/16 11/01/16 11/01/16 07:00 15:00 23:00 07:00 15:00 23:00 Intake Total 220 ml 480 ml Balance 220 ml 480 ml Intake Oral 220 ml 480 ml # Voids 1 2 1 # Bowel Movements 0 0 0 Objective Remarks GENERAL: Well-nourished, well-developed patient in no apparent distress. CARDIOVASCULAR: Regular rate and rhythm. RESPIRATORY: No accessory muscle use. CTAB. GASTROINTESTINAL: Abdomen soft, nontender, nondistended. NEUROLOGICAL: Awake and alert. Normal speech. PSYCHIATRIC: Appropriate mood and affect. Procedures 02/14 with right frontal bur hole and left subclavian line placement 02/15 with right occipital craniectomy with SDH evacuation 02/20 tracheostomy and PEG placement 02/25 left frontal temporoparietal decompressive craniotomy 03/06 PICC 03/29 bone flap replacement Urinary Catheter: No Date of Insertion: Apr 10, 2016 Date of Removal: Apr 22, 2016 Vascular Central Line Catheter: No A/P Problem List: (1) Traumatic brain injury ICD Code: S06.9X9A Status: Acute (2) HTN (hypertension) ICD Code: I10 Status: Chronic (3) Insomnia ICD Code: G47.00 Status: Acute (4) Urinary retention ICD Code: R33.9 Status: Resolved (5) Protein calorie malnutrition ICD Code: E46 Status: Acute (6) Cervical muscle strain ICD Code: S16.1XXA Status: Acute (7) Bilateral impacted cerumen ICD Code: H61.23 Status: Resolved Assessment and Plan S/P traumatic brain injury: Initial head CT with right occipital bone fracture along with intraparenchymal hemorrhage, bilateral subdural hematomas, and subarachnoid hemorrhages. Patient is status post right frontal eusebio hole, right occipital craniectomy with SDH evacuation, left frontal temporoparietal decompressive craniotomy, and subsequent bone flap replacement. Neurosurgery has signed off. Discharged from PT/speech therapy/occupational therapy as patient has reached maximum benefit Keppra bid for seizure prophylaxis Hypertension: Continue Metoprolol 12.5 mg every 12 hours Monitor BP and adjust as needed. Protein Calorie malnutrition: Resolved Initially requiring PEG tube, however patient had been eating well and PEG was removed 05/25. Continue current diet Cerumen impaction: Resolved. -S/p Debrox treatment and repeat R ear irrigation. Hearing now improved. Chronic neck pain Continue Tylenol and heat as needed DVT prophylaxis: Patient is ambulating well, low risk Discharge Planning 10/28/16: CM requested [facility] to evaluate for placement; also contacted [facility] for follow-up on acceptance. 10/30/16: CM requested [facility] and [facility] to evaluate for placement. Problem Qualifiers (1) HTN (hypertension): Qualified Code: I10 - Essential hypertension Christina Hoff Nov 01, 2016 09:24
[2016-11-01] MEDS: levETIRAcetam 500 MG TAB PO SCH ×2 (10:23→21:56)
[2016-11-01] MEDS: amLODIPine BESYLATE 5 MG TAB PO SCH (10:23)
[2016-11-01] MEDS: SELENIUM SULFIDE 1% SHAMPOO 207 ML BOTTLE TOPICAL SCH (10:23)
[2016-11-01 20:00] VITALS: BP 130/88; PULSE 54; RESP 18; TEMP 98.3; O2SAT 99
[2016-11-02] MEDS: levETIRAcetam 500 MG TAB PO SCH ×2 (07:39→21:00)
[2016-11-02] MEDS: amLODIPine BESYLATE 5 MG TAB PO SCH (07:39)
[2016-11-02] MEDS: SELENIUM SULFIDE 1% SHAMPOO 207 ML BOTTLE TOPICAL SCH (07:40)
[2016-11-02 08:00] VITALS: BP 106/85; PULSE 53; RESP 16; TEMP 97.7; O2SAT 98
--- NOTE | 2016-11-02 09:37 | HHI.PR ---
Subjective Remarks No acute complaints. No change in clinical status. Objective Vitals Vital Signs Date Time Temp Pulse Resp B/P Pulse Ox O2 Delivery O2 Flow Rate FiO2 11/01/16 20:00 98.3 54 18 130/88 99 I/O 11/01/16 11/01/16 11/01/16 11/02/16 11/02/16 11/02/16 07:00 15:00 23:00 07:00 15:00 23:00 Intake Total 1500 ml 360 ml Balance 1500 ml 360 ml Intake Oral 1500 ml 360 ml # Voids 1 2 7 2 # Bowel Movements 0 1 Objective Remarks GENERAL: Well-nourished, well-developed patient in no apparent distress. CARDIOVASCULAR: Regular rate and rhythm. RESPIRATORY: No accessory muscle use. CTAB. GASTROINTESTINAL: Abdomen soft, nontender, nondistended. NEUROLOGICAL: Awake and alert. Normal speech. PSYCHIATRIC: Appropriate mood and affect. Procedures 02/14 with right frontal bur hole and left subclavian line placement 02/15 with right occipital craniectomy with SDH evacuation 02/20 tracheostomy and PEG placement 02/25 left frontal temporoparietal decompressive craniotomy 03/06 PICC 03/29 bone flap replacement Urinary Catheter: No Date of Insertion: Apr 10, 2016 Date of Removal: Apr 22, 2016 Vascular Central Line Catheter: No A/P Problem List: (1) Traumatic brain injury ICD Code: S06.9X9A Status: Acute (2) HTN (hypertension) ICD Code: I10 Status: Chronic (3) Insomnia ICD Code: G47.00 Status: Acute (4) Urinary retention ICD Code: R33.9 Status: Resolved (5) Protein calorie malnutrition ICD Code: E46 Status: Acute (6) Cervical muscle strain ICD Code: S16.1XXA Status: Acute (7) Bilateral impacted cerumen ICD Code: H61.23 Status: Resolved Assessment and Plan S/P traumatic brain injury: Initial head CT with right occipital bone fracture along with intraparenchymal hemorrhage, bilateral subdural hematomas, and subarachnoid hemorrhages. Patient is status post right frontal eusebio hole, right occipital craniectomy with SDH evacuation, left frontal temporoparietal decompressive craniotomy, and subsequent bone flap replacement. Neurosurgery has signed off. Discharged from PT/speech therapy/occupational therapy as patient has reached maximum benefit Keppra bid for seizure prophylaxis Hypertension: Continue Metoprolol 12.5 mg every 12 hours Monitor BP and adjust as needed. Protein Calorie malnutrition: Resolved Initially requiring PEG tube, however patient had been eating well and PEG was removed 05/25. Continue current diet Cerumen impaction: Resolved. -S/p Debrox treatment and repeat R ear irrigation. Hearing now improved. Chronic neck pain Continue Tylenol and heat as needed DVT prophylaxis: Patient is ambulating well, low risk Discharge Planning 10/28/16: CM requested [facility] to evaluate for placement; also contacted [facility] for follow-up on acceptance. 10/30/16: CM requested [facility] and [facility] to evaluate for placement. Problem Qualifiers (1) HTN (hypertension): Qualified Code: I10 - Essential hypertension Christina Hoff Nov 02, 2016 09:37
[2016-11-02 20:00] VITALS: BP 130/85; PULSE 62; RESP 18; TEMP 96.6; O2SAT 97
[2016-11-03 08:00] VITALS: BP 124/82; PULSE 65; RESP 20; TEMP 98; O2SAT 97
--- NOTE | 2016-11-03 08:30 | HHI.PR ---
Subjective Remarks No acute complaints. No change in clinical status. Objective Vitals Vital Signs Date Time Temp Pulse Resp B/P Pulse Ox O2 Delivery O2 Flow Rate FiO2 11/03/16 08:00 98.0 65 20 124/82 97 11/02/16 20:00 96.6 62 18 130/85 97 I/O 11/02/16 11/02/16 11/02/16 11/03/16 11/03/16 11/03/16 07:00 15:00 23:00 07:00 15:00 23:00 Intake Total 360 ml 1380 ml 240 ml 240 ml Balance 360 ml 1380 ml 240 ml 240 ml Intake Oral 360 ml 1380 ml 240 ml 240 ml # Voids 2 3 3 5 # Bowel Movements 1 1 1 Objective Remarks GENERAL: Well-nourished, well-developed patient in no apparent distress. CARDIOVASCULAR: Regular rate and rhythm. RESPIRATORY: No accessory muscle use. CTAB. GASTROINTESTINAL: Abdomen soft, nontender, nondistended. NEUROLOGICAL: Awake and alert. Normal speech. PSYCHIATRIC: Appropriate mood and affect. Procedures 02/14 with right frontal bur hole and left subclavian line placement 02/15 with right occipital craniectomy with SDH evacuation 02/20 tracheostomy and PEG placement 02/25 left frontal temporoparietal decompressive craniotomy 03/06 PICC 03/29 bone flap replacement Urinary Catheter: No Date of Insertion: Apr 10, 2016 Date of Removal: Apr 22, 2016 Vascular Central Line Catheter: No A/P Problem List: (1) Traumatic brain injury ICD Code: S06.9X9A Status: Acute (2) HTN (hypertension) ICD Code: I10 Status: Chronic (3) Insomnia ICD Code: G47.00 Status: Acute (4) Urinary retention ICD Code: R33.9 Status: Resolved (5) Protein calorie malnutrition ICD Code: E46 Status: Acute (6) Cervical muscle strain ICD Code: S16.1XXA Status: Acute (7) Bilateral impacted cerumen ICD Code: H61.23 Status: Resolved Assessment and Plan S/P traumatic brain injury: Initial head CT with right occipital bone fracture along with intraparenchymal hemorrhage, bilateral subdural hematomas, and subarachnoid hemorrhages. Patient is status post right frontal eusebio hole, right occipital craniectomy with SDH evacuation, left frontal temporoparietal decompressive craniotomy, and subsequent bone flap replacement. Neurosurgery has signed off. Discharged from PT/speech therapy/occupational therapy as patient has reached maximum benefit Keppra bid for seizure prophylaxis Hypertension: Continue Metoprolol 12.5 mg every 12 hours Monitor BP and adjust as needed. Protein Calorie malnutrition: Resolved Initially requiring PEG tube, however patient had been eating well and PEG was removed 05/25. Continue current diet Cerumen impaction: Resolved. -S/p Debrox treatment and repeat R ear irrigation. Hearing now improved. Chronic neck pain Continue Tylenol and heat as needed DVT prophylaxis: Patient is ambulating well, low risk Discharge Planning 10/28/16: CM requested [facility] to evaluate for placement; also contacted [facility] for follow-up on acceptance. 10/30/16: CM requested [facility] and [facility] to evaluate for placement. Problem Qualifiers (1) HTN (hypertension): Qualified Code: I10 - Essential hypertension Christina Hoff Nov 03, 2016 08:30
[2016-11-03] MEDS: amLODIPine BESYLATE 5 MG TAB PO SCH (08:50)
[2016-11-03] MEDS: SELENIUM SULFIDE 1% SHAMPOO 207 ML BOTTLE TOPICAL SCH (08:51)
[2016-11-03] MEDS: levETIRAcetam 500 MG TAB PO SCH ×2 (08:51→21:36)
[2016-11-03 20:00] VITALS: BP 115/81; PULSE 57; RESP 16; TEMP 98; O2SAT 98
[2016-11-04 08:00] VITALS: BP 119/83; PULSE 66; RESP 18; TEMP 97.4; O2SAT 97
[2016-11-04] MEDS: levETIRAcetam 500 MG TAB PO SCH ×2 (08:22→20:51)
[2016-11-04] MEDS: amLODIPine BESYLATE 5 MG TAB PO SCH (08:22)
[2016-11-04] MEDS: SELENIUM SULFIDE 1% SHAMPOO 207 ML BOTTLE TOPICAL SCH (08:23)
--- NOTE | 2016-11-04 13:13 | HHI.PR ---
Subjective Remarks No acute complaints. No change in clinical status. Patient apparently had been leaving the hospital with his POA to go eat. The nurse and I both spoke with the POA and the patient and informed them that the patient cannot leave the hospital. He will be allowed outside if there is a staff member to assist. Objective Vitals Vital Signs Date Time Temp Pulse Resp B/P Pulse Ox O2 Delivery O2 Flow Rate FiO2 11/04/16 08:00 97.4 66 18 119/83 97 11/03/16 20:00 98.0 57 16 115/81 98 I/O 11/03/16 11/03/16 11/03/16 11/04/16 11/04/16 11/04/16 07:00 15:00 23:00 07:00 15:00 23:00 Intake Total 240 ml 1650 ml Balance 240 ml 1650 ml Intake Oral 240 ml 1650 ml # Voids 5 3 4 # Bowel Movements 1 1 Objective Remarks GENERAL: Well-nourished, well-developed patient in no apparent distress. CARDIOVASCULAR: Regular rate and rhythm. RESPIRATORY: No accessory muscle use. CTAB. GASTROINTESTINAL: Abdomen soft, nontender, nondistended. NEUROLOGICAL: Awake and alert. Normal speech. PSYCHIATRIC: Appropriate mood and affect. Procedures 02/14 with right frontal bur hole and left subclavian line placement 02/15 with right occipital craniectomy with SDH evacuation 02/20 tracheostomy and PEG placement 02/25 left frontal temporoparietal decompressive craniotomy 03/06 PICC 03/29 bone flap replacement Urinary Catheter: No Date of Insertion: Apr 10, 2016 Date of Removal: Apr 22, 2016 Vascular Central Line Catheter: No A/P Problem List: (1) Traumatic brain injury ICD Code: S06.9X9A Status: Acute (2) HTN (hypertension) ICD Code: I10 Status: Chronic (3) Insomnia ICD Code: G47.00 Status: Acute (4) Urinary retention ICD Code: R33.9 Status: Resolved (5) Protein calorie malnutrition ICD Code: E46 Status: Acute (6) Cervical muscle strain ICD Code: S16.1XXA Status: Acute (7) Bilateral impacted cerumen ICD Code: H61.23 Status: Resolved Assessment and Plan S/P traumatic brain injury: Initial head CT with right occipital bone fracture along with intraparenchymal hemorrhage, bilateral subdural hematomas, and subarachnoid hemorrhages. Patient is status post right frontal eusebio hole, right occipital craniectomy with SDH evacuation, left frontal temporoparietal decompressive craniotomy, and subsequent bone flap replacement. Neurosurgery has signed off. Discharged from PT/speech therapy/occupational therapy as patient has reached maximum benefit. See discharge planning note. Keppra bid for seizure prophylaxis Hypertension: Continue Metoprolol 12.5 mg every 12 hours Monitor BP and adjust as needed. Protein Calorie malnutrition: Resolved Initially requiring PEG tube, however patient had been eating well and PEG was removed 05/25. Continue current diet Cerumen impaction: Resolved. -S/p Debrox treatment and repeat R ear irrigation. Hearing now improved. Chronic neck pain Continue Tylenol and heat as needed DVT prophylaxis: Patient is ambulating well, low risk Discharge Planning 10/28/16: CM requested [facility] to evaluate for placement; also contacted [facility] for follow-up on acceptance. 10/30/16: CM requested [facility] and [facility] to evaluate for placement. 11/04/16: I spoke with POA. POA states patient is still waiting to be accepted to the [place]. banking manager is looking at other options for placement, but POA thinks patient may do okay living with a roommate. I informed him that patient' s cognitive deficits would cause a safety issue and patient admits himself to having memory issues. Patient last had ST cognitive eval on 06/19/16 and was at baseline. Will order new cognitive eval to assess whether patient has had any improvement since then. Problem Qualifiers (1) HTN (hypertension): Qualified Code: I10 - Essential hypertension Christina Hoff Nov 04, 2016 13:13
[2016-11-04 20:00] VITALS: BP 136/92; PULSE 61; RESP 20; TEMP 97.6; O2SAT 98
[2016-11-05 08:00] VITALS: BP 121/81; PULSE 63; RESP 18; TEMP 97.5; O2SAT 99
[2016-11-05] MEDS: amLODIPine BESYLATE 5 MG TAB PO SCH (09:39)
[2016-11-05] MEDS: levETIRAcetam 500 MG TAB PO SCH ×2 (09:39→21:25)
[2016-11-05] MEDS: SELENIUM SULFIDE 1% SHAMPOO 207 ML BOTTLE TOPICAL SCH (09:40)
--- NOTE | 2016-11-05 10:15 | HHI.PR ---
Subjective Remarks Patient seen and examined today. Patient has any new complaints. No change in clinical status. Awaiting case management for discharge planning Objective Vitals Vital Signs Date Time Temp Pulse Resp B/P Pulse Ox O2 Delivery O2 Flow Rate FiO2 11/05/16 08:00 97.5 63 18 121/81 99 11/04/16 20:00 97.6 61 20 136/92 98 I/O 11/04/16 11/04/16 11/04/16 11/05/16 11/05/16 11/05/16 07:00 15:00 23:00 07:00 15:00 23:00 Intake Total 480 ml 480 ml 220 ml Balance 480 ml 480 ml 220 ml Intake Oral 480 ml 480 ml 220 ml # Voids 4 3 1 # Bowel Movements 0 0 Objective Remarks GENERAL: Well-developed, well-nourished, in no acute distress. alert and orientated to person, month, year, place HEENT: Head is normocephalic without any lesions or masses noted. Facial features are symmetric. Eyes: Extraocular muscles are intact. Conjunctivae were clear. NECK: Supple without any masses. Trachea midline no deviation. CARDIAC: Regular rhythm, regular rate. S1/S2 are heard. No murmurs gallops or rubs. LUNGS: Clear to auscultation bilaterally. No wheeze, rhonchi or rales. No use of accessory muscles on inspiration or expiration. ABDOMEN: Soft, nontender. Nondistended. Bowel sounds heard in all 4 quadrants. No organomegaly or masses. Negative rebound, negative guarding EXTREMITIES: No edema, pulses are equal bilaterally. No cyanosis or clubbing NEUROLOGY: Mood and affect appear appropriate. Cranial nerves II through XII grossly intact. Moving all extremities, speech is clear Procedures 02/14 with right frontal bur hole and left subclavian line placement 02/15 with right occipital craniectomy with SDH evacuation 02/20 tracheostomy and PEG placement 02/25 left frontal temporoparietal decompressive craniotomy 03/06 PICC 03/29 bone flap replacement Urinary Catheter: No Date of Insertion: Apr 10, 2016 Date of Removal: Apr 22, 2016 Vascular Central Line Catheter: No A/P Assessment and Plan S/P traumatic brain injury: Initial head CT with right occipital bone fracture along with intraparenchymal hemorrhage, bilateral subdural hematomas, and subarachnoid hemorrhages. Patient is status post right frontal bur hole, right occipital craniectomy with SDH evacuation, left frontal temporoparietal decompressive craniotomy, and subsequent bone flap replacement. Neurosurgery has signed off. Discharged from PT/speech therapy/occupational therapy as patient has reached maximum benefit Keppra bid for seizure prophylaxis Speech therapy reconsulted for cognitive evaluation Hypertension: Stable Blood pressure stable, Norvasc 5 mg daily Protein Calorie malnutrition: Resolved Initially requiring PEG tube, however patient had been eating well and PEG was removed 05/25. Continue current diet Prealbumin 30 Chronic neck pain Continue Tylenol and heat as needed DVT prophylaxis: Patient is ambulating well, low risk Discharge Planning Discharge planning per case management. patient has been accepted at the [facility] , however awaiting financials to be sorted out. Kaushik Mcguire Nov 05, 2016 10:14
[2016-11-05 20:00] VITALS: BP 144/84; PULSE 60; RESP 20; TEMP 97.6; O2SAT 98
[2016-11-06 08:00] VITALS: BP 128/78; PULSE 66; RESP 18; TEMP 97.2; O2SAT 96
[2016-11-06] MEDS: SELENIUM SULFIDE 1% SHAMPOO 207 ML BOTTLE TOPICAL SCH (09:00)
[2016-11-06] MEDS: levETIRAcetam 500 MG TAB PO SCH ×2 (09:12→21:00)
[2016-11-06] MEDS: amLODIPine BESYLATE 5 MG TAB PO SCH (09:12)
--- NOTE | 2016-11-06 10:25 | HHI.PR ---
Subjective Remarks Patient seen and examined today. Patient denies any new complaints. No change in clinical status. Objective Vitals Vital Signs Date Time Temp Pulse Resp B/P Pulse Ox O2 Delivery O2 Flow Rate FiO2 11/05/16 20:00 97.6 60 20 144/84 98 I/O 11/05/16 11/05/16 11/05/16 11/06/16 11/06/16 11/06/16 07:00 15:00 23:00 07:00 15:00 23:00 Intake Total 220 ml 480 ml 480 ml 220 ml Balance 220 ml 480 ml 480 ml 220 ml Intake Oral 220 ml 480 ml 480 ml 220 ml # Voids 1 3 2 1 # Bowel Movements 0 0 0 Objective Remarks GENERAL: Well-developed, well-nourished, in no acute distress. alert and orientated to person, month, year, place HEENT: Head is normocephalic without any lesions or masses noted. Facial features are symmetric. Eyes: Extraocular muscles are intact. Conjunctivae were clear. NECK: Supple without any masses. Trachea midline no deviation. CARDIAC: Regular rhythm, regular rate. S1/S2 are heard. No murmurs gallops or rubs. LUNGS: Clear to auscultation bilaterally. No wheeze, rhonchi or rales. No use of accessory muscles on inspiration or expiration. ABDOMEN: Soft, nontender. Nondistended. Bowel sounds heard in all 4 quadrants. No organomegaly or masses. Negative rebound, negative guarding EXTREMITIES: No edema, pulses are equal bilaterally. No cyanosis or clubbing NEUROLOGY: Mood and affect appear appropriate. Cranial nerves II through XII grossly intact. Moving all extremities, speech is clear Procedures 02/14 with right frontal bur hole and left subclavian line placement 02/15 with right occipital craniectomy with SDH evacuation 02/20 tracheostomy and PEG placement 02/25 left frontal temporoparietal decompressive craniotomy 03/06 PICC 03/29 bone flap replacement Urinary Catheter: No Date of Insertion: Apr 10, 2016 Date of Removal: Apr 22, 2016 Vascular Central Line Catheter: No A/P Assessment and Plan S/P traumatic brain injury: Initial head CT with right occipital bone fracture along with intraparenchymal hemorrhage, bilateral subdural hematomas, and subarachnoid hemorrhages. Patient is status post right frontal bur hole, right occipital craniectomy with SDH evacuation, left frontal temporoparietal decompressive craniotomy, and subsequent bone flap replacement. Neurosurgery has signed off. Discharged from PT/speech therapy/occupational therapy as patient has reached maximum benefit Keppra bid for seizure prophylaxis Speech therapy reconsulted for cognitive evaluation, who indicates that patient still requires supervision after discharge. However will not require speech therapy after discharge. Speech therapy signed off again Hypertension: Stable Blood pressure stable, Norvasc 5 mg daily Protein Calorie malnutrition: Resolved Initially requiring PEG tube, however patient had been eating well and PEG was removed 05/25. Continue current diet Prealbumin 30 Chronic neck pain Continue Tylenol and heat as needed DVT prophylaxis: Patient is ambulating well, low risk Discharge Planning Discharge planning per case management. patient has been accepted at the [facility] , however awaiting financials to be sorted out. Kaushik Mcguire Nov 06, 2016 10:25
[2016-11-07 00:05] VITALS: BP 116/85; PULSE 68; RESP 16; TEMP 98.7; O2SAT 96
[2016-11-07 08:00] VITALS: BP 115/86; PULSE 74; RESP 20; TEMP 96.6; O2SAT 98
[2016-11-07] MEDS: amLODIPine BESYLATE 5 MG TAB PO SCH (09:00)
[2016-11-07] MEDS: SELENIUM SULFIDE 1% SHAMPOO 207 ML BOTTLE TOPICAL SCH (09:00)
[2016-11-07] MEDS: levETIRAcetam 500 MG TAB PO SCH ×2 (09:00→20:55)
--- NOTE | 2016-11-07 10:20 | HHI.PR ---
Subjective Remarks Patient seen and examined today. Patient denies any new complaints. No change in clinical status. This record was reviewed, in no acute events overnight, no change in present treatment plan. Objective Vitals Vital Signs Date Time Temp Pulse Resp B/P Pulse Ox O2 Delivery O2 Flow Rate FiO2 11/07/16 08:00 96.6 74 20 115/86 98 11/07/16 00:05 98.7 68 16 116/85 96 I/O 11/06/16 11/06/16 11/06/16 11/07/16 11/07/16 11/07/16 07:00 15:00 23:00 07:00 15:00 23:00 Intake Total 220 ml 960 ml 180 ml Balance 220 ml 960 ml 180 ml Intake Oral 220 ml 960 ml 180 ml # Voids 1 3 3 # Bowel Movements 0 Objective Remarks GENERAL: Well-developed, well-nourished, in no acute distress. alert and orientated to person, month, year, place HEENT: Head is normocephalic without any lesions or masses noted. Facial features are symmetric. Eyes: Extraocular muscles are intact. Conjunctivae were clear. NECK: Supple without any masses. Trachea midline no deviation. CARDIAC: Regular rhythm, regular rate. S1/S2 are heard. No murmurs gallops or rubs. LUNGS: Clear to auscultation bilaterally. No wheeze, rhonchi or rales. No use of accessory muscles on inspiration or expiration. ABDOMEN: Soft, nontender. Nondistended. Bowel sounds heard in all 4 quadrants. No organomegaly or masses. Negative rebound, negative guarding EXTREMITIES: No edema, pulses are equal bilaterally. No cyanosis or clubbing NEUROLOGY: Mood and affect appear appropriate. Cranial nerves II through XII grossly intact. Moving all extremities, speech is clear Procedures 02/14 with right frontal bur hole and left subclavian line placement 02/15 with right occipital craniectomy with SDH evacuation 02/20 tracheostomy and PEG placement 02/25 left frontal temporoparietal decompressive craniotomy 03/06 PICC 03/29 bone flap replacement Urinary Catheter: No Date of Insertion: Apr 10, 2016 Date of Removal: Apr 22, 2016 Vascular Central Line Catheter: No A/P Assessment and Plan S/P traumatic brain injury: Initial head CT with right occipital bone fracture along with intraparenchymal hemorrhage, bilateral subdural hematomas, and subarachnoid hemorrhages. Patient is status post right frontal bur hole, right occipital craniectomy with SDH evacuation, left frontal temporoparietal decompressive craniotomy, and subsequent bone flap replacement. Neurosurgery has signed off. Discharged from PT/speech therapy/occupational therapy as patient has reached maximum benefit Keppra bid for seizure prophylaxis Speech therapy reconsulted for cognitive evaluation, who indicates that patient still requires supervision after discharge. However will not require speech therapy after discharge. Speech therapy signed off again Hypertension: Stable Blood pressure stable, Norvasc 5 mg daily Protein Calorie malnutrition: Resolved Initially requiring PEG tube, however patient had been eating well and PEG was removed 05/25. Continue current diet Prealbumin 30 Chronic neck pain Continue Tylenol and heat as needed DVT prophylaxis: Patient is ambulating well, low risk Discharge Planning Discharge planning per case management. Kaushik Mcguire Nov 07, 2016 10:20
[2016-11-07 20:00] VITALS: BP 133/87; PULSE 60; RESP 18; TEMP 97.4; O2SAT 98
[2016-11-08 08:00] VITALS: BP 136/90; PULSE 68; RESP 20; TEMP 96.9; O2SAT 98
[2016-11-08] MEDS: amLODIPine BESYLATE 5 MG TAB PO SCH (08:45)
[2016-11-08] MEDS: levETIRAcetam 500 MG TAB PO SCH ×2 (08:45→21:52)
[2016-11-08] MEDS: SELENIUM SULFIDE 1% SHAMPOO 207 ML BOTTLE TOPICAL SCH (08:45)
--- NOTE | 2016-11-08 10:16 | HHI.PR ---
Subjective Remarks Patient seen and examined today. Patient denies any new complaints. No change in clinical status. This record was reviewed, no acute events overnight, present treatment plan is unchanged. Awaiting case management for discharge planning Objective Vitals Vital Signs Date Time Temp Pulse Resp B/P Pulse Ox O2 Delivery O2 Flow Rate FiO2 11/08/16 08:00 96.9 68 20 136/90 98 11/07/16 20:00 97.4 60 18 133/87 98 I/O 11/07/16 11/07/16 11/07/16 11/08/16 11/08/16 11/08/16 07:00 15:00 23:00 07:00 15:00 23:00 Intake Total 180 ml 1000 ml 680 ml 600 ml Balance 180 ml 1000 ml 680 ml 600 ml Intake Oral 180 ml 1000 ml 680 ml 600 ml # Voids 3 4 2 2 # Bowel Movements 0 0 0 Objective Remarks GENERAL: Well-developed, well-nourished, in no acute distress. alert and orientated to person, month, year, place HEENT: Head is normocephalic without any lesions or masses noted. Facial features are symmetric. Eyes: Extraocular muscles are intact. Conjunctivae were clear. NECK: Supple without any masses. Trachea midline no deviation. CARDIAC: Regular rhythm, regular rate. S1/S2 are heard. No murmurs gallops or rubs. LUNGS: Clear to auscultation bilaterally. No wheeze, rhonchi or rales. No use of accessory muscles on inspiration or expiration. ABDOMEN: Soft, nontender. Nondistended. Bowel sounds heard in all 4 quadrants. No organomegaly or masses. Negative rebound, negative guarding EXTREMITIES: No edema, pulses are equal bilaterally. No cyanosis or clubbing NEUROLOGY: Mood and affect appear appropriate. Cranial nerves II through XII grossly intact. Moving all extremities, speech is clear Procedures 02/14 with right frontal bur hole and left subclavian line placement 02/15 with right occipital craniectomy with SDH evacuation 02/20 tracheostomy and PEG placement 02/25 left frontal temporoparietal decompressive craniotomy 03/06 PICC 03/29 bone flap replacement Urinary Catheter: No Date of Insertion: Apr 10, 2016 Date of Removal: Apr 22, 2016 Vascular Central Line Catheter: No A/P Assessment and Plan S/P traumatic brain injury: Initial head CT with right occipital bone fracture along with intraparenchymal hemorrhage, bilateral subdural hematomas, and subarachnoid hemorrhages. Patient is status post right frontal bur hole, right occipital craniectomy with SDH evacuation, left frontal temporoparietal decompressive craniotomy, and subsequent bone flap replacement. Neurosurgery has signed off. Discharged from PT/speech therapy/occupational therapy as patient has reached maximum benefit Keppra bid for seizure prophylaxis Speech therapy reconsulted for cognitive evaluation, who indicates that patient still requires supervision after discharge. However will not require speech therapy after discharge. Speech therapy signed off again Hypertension: Stable Blood pressure stable, Norvasc 5 mg daily Protein Calorie malnutrition: Resolved Initially requiring PEG tube, however patient had been eating well and PEG was removed 05/25. Continue current diet Prealbumin 30 Chronic neck pain Continue Tylenol and heat as needed DVT prophylaxis: Patient is ambulating well, low risk Discharge Planning Discharge planning per case management. Kaushik Mcguire Nov 08, 2016 10:16
[2016-11-08 21:59] VITALS: BP 147/96; PULSE 58; RESP 20; TEMP 98.1; O2SAT 99
[2016-11-09 08:00] VITALS: BP 112/80; PULSE 58; RESP 16; TEMP 97.7; O2SAT 96
[2016-11-09] MEDS: SELENIUM SULFIDE 1% SHAMPOO 207 ML BOTTLE TOPICAL SCH (08:14)
[2016-11-09] MEDS: levETIRAcetam 500 MG TAB PO SCH ×2 (08:14→21:00)
[2016-11-09] MEDS: amLODIPine BESYLATE 5 MG TAB PO SCH (08:14)
--- NOTE | 2016-11-09 10:29 | HHI.PR ---
Subjective Remarks Patient seen and examined today. Patient denies any new complaints. No change in clinical status. This record was reviewed, no acute events overnight, no change present treatment plan. Awaiting case management for discharge planning Objective Vitals Vital Signs Date Time Temp Pulse Resp B/P Pulse Ox O2 Delivery O2 Flow Rate FiO2 11/09/16 08:00 97.7 58 16 112/80 96 11/08/16 21:59 98.1 58 20 147/96 99 I/O 11/08/16 11/08/16 11/08/16 11/09/16 11/09/16 11/09/16 07:00 15:00 23:00 07:00 15:00 23:00 Intake Total 600 ml 1380 ml Balance 600 ml 1380 ml Intake Oral 600 ml 1380 ml # Voids 2 3 4 # Bowel Movements 0 1 Objective Remarks GENERAL: Well-developed, well-nourished, in no acute distress. alert and orientated to person, month, year, place HEENT: Head is normocephalic without any lesions or masses noted. Facial features are symmetric. Eyes: Extraocular muscles are intact. Conjunctivae were clear. NECK: Supple without any masses. Trachea midline no deviation. CARDIAC: Regular rhythm, regular rate. S1/S2 are heard. No murmurs gallops or rubs. LUNGS: Clear to auscultation bilaterally. No wheeze, rhonchi or rales. No use of accessory muscles on inspiration or expiration. ABDOMEN: Soft, nontender. Nondistended. Bowel sounds heard in all 4 quadrants. No organomegaly or masses. Negative rebound, negative guarding EXTREMITIES: No edema, pulses are equal bilaterally. No cyanosis or clubbing NEUROLOGY: Mood and affect appear appropriate. Cranial nerves II through XII grossly intact. Moving all extremities, speech is clear Procedures 02/14 with right frontal bur hole and left subclavian line placement 02/15 with right occipital craniectomy with SDH evacuation 02/20 tracheostomy and PEG placement 02/25 left frontal temporoparietal decompressive craniotomy 03/06 PICC 03/29 bone flap replacement Urinary Catheter: No Vascular Central Line Catheter: No A/P Assessment and Plan S/P traumatic brain injury: Initial head CT with right occipital bone fracture along with intraparenchymal hemorrhage, bilateral subdural hematomas, and subarachnoid hemorrhages. Patient is status post right frontal bur hole, right occipital craniectomy with SDH evacuation, left frontal temporoparietal decompressive craniotomy, and subsequent bone flap replacement. Neurosurgery has signed off. Discharged from PT/speech therapy/occupational therapy as patient has reached maximum benefit Keppra bid for seizure prophylaxis Speech therapy reconsulted for cognitive evaluation, who indicates that patient still requires supervision after discharge. However will not require speech therapy after discharge. Speech therapy signed off again Hypertension: Stable Blood pressure stable, Norvasc 5 mg daily Protein Calorie malnutrition: Resolved Initially requiring PEG tube, however patient had been eating well and PEG was removed 05/25. Continue current diet Prealbumin 30 Chronic neck pain Continue Tylenol and heat as needed DVT prophylaxis: Patient is ambulating well, low risk Discharge Planning Discharge planning per case management. Kaushik Mcguire Nov 09, 2016 10:29
[2016-11-09 20:00] VITALS: BP 127/80; PULSE 56; RESP 16; TEMP 96.1; O2SAT 98
[2016-11-10 08:00] VITALS: BP 126/77; PULSE 65; RESP 19; TEMP 97.4; O2SAT 99
[2016-11-10] MEDS: amLODIPine BESYLATE 5 MG TAB PO SCH (08:23)
[2016-11-10] MEDS: levETIRAcetam 500 MG TAB PO SCH ×2 (08:23→20:07)
[2016-11-10] MEDS: SELENIUM SULFIDE 1% SHAMPOO 207 ML BOTTLE TOPICAL SCH (08:24)
--- NOTE | 2016-11-10 10:08 | HHI.PR ---
Subjective Remarks This record was reviewed, no acute events overnight, no change in present treatment plan. Awaiting case management for discharge planning. Patient seen and examined today. Patient denies any new complaints. No change in clinical status. Objective Vitals Vital Signs Date Time Temp Pulse Resp B/P Pulse Ox O2 Delivery O2 Flow Rate FiO2 11/10/16 08:00 97.4 65 19 126/77 99 11/09/16 20:00 96.1 56 16 127/80 98 I/O 11/09/16 11/09/16 11/09/16 11/10/16 11/10/16 11/10/16 07:00 15:00 23:00 07:00 15:00 23:00 Intake Total 840 ml 480 ml 240 ml Balance 840 ml 480 ml 240 ml Intake Oral 840 ml 480 ml 240 ml IV Total 0 ml # Voids 4 3 2 1 # Bowel Movements 1 0 0 Objective Remarks GENERAL: Well-developed, well-nourished, in no acute distress. alert and orientated to person, month, year, place HEENT: Head is normocephalic without any lesions or masses noted. Facial features are symmetric. Eyes: Extraocular muscles are intact. Conjunctivae were clear. NECK: Supple without any masses. Trachea midline no deviation. CARDIAC: Regular rhythm, regular rate. S1/S2 are heard. No murmurs gallops or rubs. LUNGS: Clear to auscultation bilaterally. No wheeze, rhonchi or rales. No use of accessory muscles on inspiration or expiration. ABDOMEN: Soft, nontender. Nondistended. Bowel sounds heard in all 4 quadrants. No organomegaly or masses. Negative rebound, negative guarding EXTREMITIES: No edema, pulses are equal bilaterally. No cyanosis or clubbing NEUROLOGY: Mood and affect appear appropriate. Cranial nerves II through XII grossly intact. Moving all extremities, speech is clear Procedures 02/14 with right frontal bur hole and left subclavian line placement 02/15 with right occipital craniectomy with SDH evacuation 02/20 tracheostomy and PEG placement 02/25 left frontal temporoparietal decompressive craniotomy 03/06 PICC 03/29 bone flap replacement Urinary Catheter: No Vascular Central Line Catheter: No A/P Assessment and Plan S/P traumatic brain injury: Initial head CT with right occipital bone fracture along with intraparenchymal hemorrhage, bilateral subdural hematomas, and subarachnoid hemorrhages. Patient is status post right frontal bur hole, right occipital craniectomy with SDH evacuation, left frontal temporoparietal decompressive craniotomy, and subsequent bone flap replacement. Neurosurgery has signed off. Discharged from PT/speech therapy/occupational therapy as patient has reached maximum benefit Keppra bid for seizure prophylaxis Speech therapy reconsulted for cognitive evaluation, who indicates that patient still requires supervision after discharge. However will not require speech therapy after discharge. Speech therapy signed off again Hypertension: Stable Blood pressure stable, Norvasc 5 mg daily Protein Calorie malnutrition: Resolved Initially requiring PEG tube, however patient had been eating well and PEG was removed 05/25. Continue current diet Prealbumin 30 Chronic neck pain Continue Tylenol and heat as needed DVT prophylaxis: Patient is ambulating well, low risk No change in present treatment plan Discharge Planning Discharge planning per case management. Kaushik Mcguire Nov 10, 2016 10:08
[2016-11-10 20:00] VITALS: BP 134/88; PULSE 62; RESP 16; TEMP 95.6; O2SAT 98
[2016-11-11 08:00] VITALS: BP 112/76; PULSE 69; RESP 16; TEMP 97; O2SAT 98
[2016-11-11] MEDS: SELENIUM SULFIDE 1% SHAMPOO 207 ML BOTTLE TOPICAL SCH (09:00)
[2016-11-11] MEDS: amLODIPine BESYLATE 5 MG TAB PO SCH (09:53)
[2016-11-11] MEDS: levETIRAcetam 500 MG TAB PO SCH ×2 (09:53→20:14)
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
[2016-11-11 20:00] VITALS: BP 132/89; PULSE 56; RESP 20; TEMP 97.4
[2016-11-12 08:00] VITALS: BP 130/86; PULSE 72; RESP 20; TEMP 97.4; O2SAT 97
[2016-11-12] MEDS: SELENIUM SULFIDE 1% SHAMPOO 207 ML BOTTLE TOPICAL SCH (09:00)
[2016-11-12] MEDS: levETIRAcetam 500 MG TAB PO SCH ×2 (10:00→20:09)
[2016-11-12] MEDS: amLODIPine BESYLATE 5 MG TAB PO SCH (10:01)
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
[2016-11-12 20:00] VITALS: BP 121/83; PULSE 61; RESP 18; TEMP 97.8; O2SAT 98
[2016-11-13] MEDS: levETIRAcetam 500 MG TAB PO SCH (07:43)
[2016-11-13] MEDS: amLODIPine BESYLATE 5 MG TAB PO SCH (07:43)
[2016-11-13] MEDS: SELENIUM SULFIDE 1% SHAMPOO 207 ML BOTTLE TOPICAL SCH (07:44)
[2016-11-13 08:36] VITALS: BP 113/74; PULSE 62; RESP 14; TEMP 97.3; O2SAT 97
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
[2016-11-13] MEDS ORDERED: ACETAMINOPHEN 500 MG CPLT PO ONE (13:00)
--- NOTE | 2016-11-13 15:08 | HHI.DCPOC ---
Discharge Care Plan Diagnosis: (1) Traumatic brain injury (2) Cognitive deficits (3) Cervical muscle strain (4) HTN (hypertension) (5) Protein calorie malnutrition (6) Bilateral impacted cerumen (7) Insomnia Goals to Promote Your Health * To prevent worsening of your condition and complications * To maintain your health at the optimal level Directions to Meet Your Goals Take your medications as prescribed Follow your dietary instruction Follow activity as directed Keep your appointments as scheduled Take your immunizations and boosters as scheduled If your symptoms worsen call your PCP, if no PCP go to Urgent Care Center or Emergency Room Smoking is Dangerous to Your Health. Avoid second hand smoke Call the 24-hour hour crisis hotline for domestic abuse at Christina Hoff Nov 13, 2016 15:08
[2016-11-13] MEDS ORDERED: LEVE500 PO (15:12)
[2016-11-13] MEDS ORDERED: SELS1SHA12 TOPICAL (15:12)
[2016-11-13] MEDS ORDERED: AMLO5 PO (15:12)
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
== END 2016-11-13 18:06 | DRG 3 ==
LOC: NEPE 00:28 → NEDA 02:55 → N03A 05:05 → N05B 04-05 15:49 → PH5A 07-10 02:40
PROVIDERS: ADMIT Hospitalist; ATTEND Hospitalist
PROC: 5A1955Z Respiratory Ventilation, Greater than 96 Consecutive Hours (ICD-10-PCS; 2016-02-15)
PROC: 009630Z Drainage of Cerebral Ventricle with Drainage Device, Percutaneous Approach (ICD-10-PCS; 2016-02-15)
PROC: 05H633Z Insertion of Infusion Device into Left Subclavian Vein, Percutaneous Approach (ICD-10-PCS; 2016-02-15)
PROC: 0BH17EZ Insertion of Endotracheal Airway into Trachea, Via Natural or Artificial Opening (ICD-10-PCS; 2016-02-15)
PROC: 00C00ZZ Extirpation of Matter from Brain, Open Approach (ICD-10-PCS; principal; 2016-02-16 08:07)
PROC: 0B113F4 Bypass Trachea to Cutaneous with Tracheostomy Device, Percutaneous Approach (ICD-10-PCS; 2016-02-21)
PROC: 0BJ08ZZ Inspection of Tracheobronchial Tree, Via Natural or Artificial Opening Endoscopic (ICD-10-PCS; 2016-02-21)
PROC: 0DH63UZ Insertion of Feeding Device into Stomach, Percutaneous Approach (ICD-10-PCS; 2016-02-22)
PROC: 0DB68ZX Excision of Stomach, Via Natural or Artificial Opening Endoscopic, Diagnostic (ICD-10-PCS; 2016-02-22)
PROC: 00C40ZZ Extirpation of Matter from Intracranial Subdural Space, Open Approach (ICD-10-PCS; 2016-02-26)
PROC: 30233N1 Transfusion of Nonautologous Red Blood Cells into Peripheral Vein, Percutaneous Approach (ICD-10-PCS; 2016-02-27)
PROC: 02HV33Z Insertion of Infusion Device into Superior Vena Cava, Percutaneous Approach (ICD-10-PCS; 2016-03-06)
PROC: [UNRECOGNIZED PROCEDURE] (2016-03-29)
PROC: 0NR Head and Facial Bones, Replacement (ICD-10-PCS; 2016-03-29)
PROC: 0NR607Z Replacement of Left Temporal Bone with Autologous Tissue Substitute, Open Approach (ICD-10-PCS; 2016-03-29)
PROC: 0T9B70Z Drainage of Bladder with Drainage Device, Via Natural or Artificial Opening (ICD-10-PCS; 2016-04-12)
PROC: 0DP6XUZ Removal of Feeding Device from Stomach, External Approach (ICD-10-PCS; 2016-05-24)
DX: S06.5X9A Traumatic subdural hemorrhage with loss of consciousness of unspecified duration, initial encounter (principal); G93.6 Cerebral edema; G93.41 Metabolic encephalopathy; A41.9 Sepsis, unspecified organism; J15.211 Pneumonia due to Methicillin susceptible Staphylococcus aureus; J15.6 Pneumonia due to other Gram-negative bacteria; E87.0 Hyperosmolality and hypernatremia; I95.9 Hypotension, unspecified; J96.00 Acute respiratory failure, unspecified whether with hypoxia or hypercapnia; E87.3 Alkalosis; E44.0 Moderate protein-calorie malnutrition; Z99.11 Dependence on respirator [ventilator] status; I16.1 Hypertensive emergency; F10.239 Alcohol dependence with withdrawal, unspecified; E87.1 Hypo-osmolality and hyponatremia; J98.11 Atelectasis; K56.7 Ileus, unspecified; R47.01 Aphasia; S02.119A Unspecified fracture of occiput, initial encounter for closed fracture; S06.6X9A Traumatic subarachnoid hemorrhage with loss of consciousness of unspecified duration, initial encounter; R13.10 Dysphagia, unspecified; F10.229 Alcohol dependence with intoxication, unspecified; I10 Essential (primary) hypertension; R73.9 Hyperglycemia, unspecified; R40.2433 Glasgow coma scale score 3-8, at hospital admission; Y90.8 Blood alcohol level of 240 mg/100 ml or more; M54.2 Cervicalgia; F11.129 Opioid abuse with intoxication, unspecified; R41.89 Other symptoms and signs involving cognitive functions and awareness; D63.8 Anemia in other chronic diseases classified elsewhere; R33.9 Retention of urine, unspecified; H61.23 Impacted cerumen, bilateral; G47.00 Insomnia, unspecified; G89.29 Other chronic pain; R00.1 Bradycardia, unspecified; E87.6 Hypokalemia; R56.9 Unspecified convulsions; Z23 Encounter for immunization; V19.9XXA Pedal cyclist (driver) (passenger) injured in unspecified traffic accident, initial encounter; Y93.55 Activity, bike riding; T50.2X5A Adverse effect of carbonic-anhydrase inhibitors, benzothiadiazides and other diuretics, initial encounter
CPT/HCPCS: 31500; 36430; 36556; 36569; 36600; 36620; 51702; 61210; 70450; 70496; 71010; 72125; 76705; 76937; 80048; 80053; 80074; 80076; 80202; 80301; 80320; 81001; 82248; 82550; 82805; 82945; 82948; 83036; 83735; 83930; 84100; 84132; 84134; 84155; 84157; 84295; 84484; 85007; 85025; 85027; 85610; 85730; 86403; 86850; 86900; 86901; 86920; 87040; 87070; 87077; 87086; 87147; 87186; 87205; 87641; 88304; 88305; 89051; 90686; 93005; 94002; 94003; 94640; 94664; 94770; 95819; 96372; A7520; A7521; C1713; C1768; C9113; C9248; G0479; J0131; J0171; J0360; J0461; J0690; J0696; J1170; J1580; J1642; J1650; J1815; J1940; J1953; J2060; J2150; J2250; J2270; J2370; J2405; J2543; J2550; J2710; J2765; J2780; J2997; J3010; J3370; J3475; J3480; J7030; J7040; J7050; J7120; P9016; P9045; Q0163; Q2038; Q9967